=== PATIENT | female | born 1930 | race African-American/Black ===

== ENCOUNTER 2016-02-06 08:11 | Inpatient (IN) | payer MEDICARE, BC ==
[~2016-02-06] VITALS: Ht 175.3 cm; Wt 64.0 kg
[2016-02-06] VITALS (7 sets, daily range): BP systolic 122–198; BP diastolic 61–96; PULSE 77–112; RESP 16–24; TEMP 98.4–99.1; O2SAT 86–100
[~2016-02-06 08:11] MED LIST: ALPR.25 PO; AMLO1TAB99 PO; ASPI81TA11 PO; CARV6.25 PO; CYAN25003 SL; LEVO50TA4 PO; LIPI20TA PO; MULT1TAB84 PO; SEVEL800 PO; VIIB40TA PO
[2016-02-06] MEDS: RESP: ALBUTEROL 2.5 MG/IPRATROPIUM 0.5 MG NEB (SCH) INH ×2 (08:30→09:00)
[2016-02-06] MEDS ORDERED: SODIUM CHLORIDE 0.9% FLUSH 5 ML FLUSH IVF PRN ×2 (08:30→13:00)
[2016-02-06 08:40] LABS: BLOOD GAS BASE EXCESS -2.5 mmol/L (-2-2); BLOOD GAS HCO3 23 mmol/L (22-26); BLOOD GAS METHEMOGLOBIN 1.8 % (0-2); BLOOD GAS O2 HGB SATURATION 94 % (90-100); BLOOD GAS PCO2 44 mmHg (38-42); BLOOD GAS PO2 101 mmHG (61-120); BLOOD GAS TOTAL HGB 11.3 G/DL (12.0-16.0); CRITICAL VALUE NO; DRAW SITE LT RADIAL; LITER FLOW 4 L/M; NUMBER OF ARTERIAL PUNCTURES 1; OXYGEN DEVICE NASAL CANNULA; STAT YES; TEMP CORR TO 98.6; ULNAR PULSE PRESENT
[2016-02-06 08:52] LABS: AUTOMATED NEUTROPHIL # 6.3 TH/MM3 (1.8-7.7); BASOPHIL % 0.5 % (0.0-2.0); EOSINOPHIL % 0.1 % (0.0-4.0); HEMATOCRIT 32.9 % (35.0-46.0); HEMO FLAGS DIFF FINAL; LYMPH % 14.3 % (9.0-44.0); LYMPHOCYTE # 1.1 TH/MM3 (1.0-4.8); MEAN CORPUSCULAR HEMOGLOBIN 31.9 PG (27.0-34.0); MEAN CORPUSCULAR HGB CONC 32.8 % (32.0-36.0); MONO % 5.8 % (0.0-8.0); NEUT % 79.3 % (16.0-70.0); PLATELET COUNT 260 TH/MM3 (150-450); RED BLOOD COUNT 3.39 MIL/MM3 (4.00-5.30); RED CELL DISTRIBUTION WIDTH 14.6 % (11.6-17.2)
[2016-02-06 09:00] LABS: APTT (PATIENT) 25.5 SEC (24.3-30.1); PROTHROMBIN TIME - PATIENT 10.7 SEC (9.8-11.6)
[2016-02-06 09:05] LABS: BICARBONATE 21.4 MEQ/L (21.0-32.0); POTASSIUM 4.8 MEQ/L (3.5-5.1)
--- NOTE | 2016-02-06 09:12 | RADRPT ---
EXAM DATE/TIME: 02/06/2016 08:57 [place] COMPARISON: CHEST SINGLE AP, December 20, 2015, 1:54. CHEST SINGLE AP, January 07, 2016, 12:55. INDICATIONS : Shortness of breath. MEDICAL HISTORY : Hypertension. Gastroesophageal reflux disease. CAD. SURGICAL HISTORY : Tonsillectomy. 3 Stents placed. ENCOUNTER: Initial ACUITY: 1 day PAIN SCORE: 0/10 LOCATION: Bilateral chest FINDINGS: There is interstitial prominence and patchy parenchymal infiltrate in the left mid and lower lung zon es and right lung base. Blunting of the bilateral costophrenic angles identified and may reflect tiny effusions. There is cardiomegaly. Aortic calcification. CONCLUSION: Interstitial and alveolar infiltrates with small effusions. Chano Jimenes MD on February 06, 2016 at 9:10 Board Certified Radiologist. This report was verified electronically.
[2016-02-06] MEDS ORDERED: cefTRIAXone INJ 2,000 MG in SODIUM CHLORIDE 0.9% INJ 100 ML IV STA (09:18)
[2016-02-06] MEDS ORDERED: AZITHROMYCIN INJ 500 MG in SODIUM CHLOR 0.9% 250 ML INJ 250 ML IV STA (09:18)
--- NOTE | 2016-02-06 09:24 | PD ---
HPI Chief Complaint: Respiratory Distress Time Seen by Provider: 08:17 Travel History International Travel<30 days: No Contact w/Intl Traveler<30days: No Traveled to known affect area: No History of Present Illness HPI Patient is a 85-year-old female with history of HTN, ESRD on HD Sunday/Sunday /Sunday, CAD with recent cardiac catheter approximately 4 months ago showing mild three-vessel CAD with EF of 45-50%. Patient presents the emergency department today with complaint of shortness of breath. Patient states that she had dialysis on Sunday but only had a partial run. She is not able to tell me why this was only a partial run. Patient states that yesterday she felt fine but this morning she woke up feeling short of breath, wheezy. She denies any history of underlying lung disease. She does not know how much fluid they took off on Sunday versus how much they typically would take off. Patient denies any increasing lower, edema or change in her weight. Per EMS patient was hypoxic into the mid 80s. Given albuterol 2 and placed on supplemental oxygen with some improvement of her respiratory distress en route. Patient denies any chest pain at this time. PFSH Past Medical History Anemia: Yes Arthritis: Yes Asthma: No Blood Disorders: No Anxiety: Yes Depression: Yes Heart Rhythm Problems: Yes Cancer: No Cardiac Catheterization: Yes (X3) Cardiovascular Problems: Yes (3 STENTS) High Cholesterol: No Chest Pain: Yes Congestive Heart Failure: No COPD: No Coronary Artery Disease: Yes Diabetes: No Endocrine: Yes Gastrointestinal Disorders: Yes (HEART BURN) GERD: Yes Genitourinary: Yes (ESRD - ON DIALYSIS) Hypertension: Yes Immune Disorder: No Implanted Vascular Access Dvce: Yes Musculoskeletal: Yes (RIGHT HIP) Neurologic: No Psychiatric: Yes Reproductive: No Respiratory: Yes Integumentary: Yes (CELLULITIS L ARM) Immunizations Current: Yes Pneumonia: Yes Renal Failure: Yes Sleep Apnea: Yes (HAD CPAP IN PAST) Thyroid Disease: Yes Influenza Vaccination: Yes ?: Not Past Surgical History Abdominal Surgery: Yes Appendectomy: Yes Arteriovenous Shunt: Yes (RUE) Body Medical Devices: 3 CARDIAC STENTS, KIDNEY STENT, HX R CHEST DIALYSIS CATH Coronary Stent: Yes (X3) Eye Surgery: Yes (L CATARACT REMOVED) Genitourinary Surgery: Yes (STONES REMOVED, L KIDNEY STENT) Gynecologic Surgery: Yes Hysterectomy: Yes Joint Replacement: Yes (BILAT TOTAL HIP, BILAT TOTAL KNEE) Oral Surgery: Yes Tonsillectomy: Yes Other Surgery: Yes Social History Alcohol Use: Yes (RARE) Tobacco Use: No Substance Use: No Allergies-Medications (Allergen,Severity, Reaction): Coded Allergies: Dilaudid (Verified Allergy, Severe, ANAPHYLACTIC, 02/06/16) Morphine (Verified Allergy, Severe, ANAPHYLACTIC, 02/06/16) *MDRO Multi-Drug Resistant Organism (Verified Adverse Reaction, Unknown, 01/07/16) MRSA PCR screen POSITIVE - 12/21/15 Reported Meds & Prescriptions Reported Meds & Active Scripts Active Xanax (Alprazolam) 0.25 Mg Tab 0.25 Mg PO Q8H PRN Coreg (Carvedilol) 6.25 Mg Tab 6.25 Mg PO Q12HR Lipitor (Atorvastatin Calcium) 20 Mg Tab 20 Mg PO HS Aspirin EC (Aspirin) 81 Mg Tabdr 325 Mg PO DAILY Reported Viibryd (Vilazodone) 40 Mg Tab 40 Mg PO DAILY Multivitamin Adults (Multiple Vitamins W/ Minerals) 1 Tab 1 Tab PO DAILY Review of Systems Except as stated in HPI: all other systems reviewed are Neg Physical Exam Narrative GENERAL: Pleasant female in no acute distress SKIN: Warm and dry. HEAD: Normocephalic. EYES: No scleral icterus. No injection or drainage. ENT: Mucous membranes pink and moist. NECK supple CARDIOVASCULAR: Tachycardic with heart rate in the 110s, regular rhythm. No murmur appreciated. RESPIRATORY: Mild to moderate respiratory distress with tachypnea, prolonged expiratory phase. Decreased in bilateral bases with slight crackles. Lips. GASTROINTESTINAL: Abdomen soft, non-tender, nondistended. MUSCULOSKELETAL: Right upper extremity with palpable thrill and AV fistula NEUROLOGICAL: Awake and alert. Normal speech. PSYCHIATRIC: Appropriate mood and affect; insight and judgment normal. Data Data Last Documented VS Vital Signs Date Time Temp Pulse Resp B/P Pulse Ox O2 Delivery O2 Flow Rate FiO2 02/06/16 08:23 95 Nasal Cannula 2 02/06/16 08:23 98.4 109 16 198/96 Orders Complete Blood Count With Diff (02/06/16 08:17) Basic Metabolic Panel (Bmp) (02/06/16 08:17) B-Type Natriuretic Peptide (02/06/16 08:17) Act Partial Throm Time (Ptt) (02/06/16 08:17) Prothrombin Time / Inr (Pt) (02/06/16 08:17) Troponin I (02/06/16 08:17) Arterial Blood Gas (Abg) (02/06/16 08:17) Blood Culture (02/06/16 08:17) Iv Access Insert/Monitor (02/06/16 08:17) Electrocardiogram (02/06/16 08:17) Ecg Monitoring (02/06/16 08:17) Oximetry (02/06/16 08:17) Oxygen Administration (02/06/16 08:17) Chest, Single Ap (02/06/16 08:17) Sodium Chloride 0.9% Flush (Ns Flush) (02/06/16 08:30) Albuterol-Ipratropium Neb (Duoneb Neb) (02/06/16 08:30) Lactic Acid Sepsis Protocol (02/06/16 08:17) Electrocardiogram (02/06/16 ) Electrocardiogram (02/06/16 ) Nitroglycerin Sl (Nitrostat Sl) (02/06/16 09:30) Ceftriaxone Inj (Rocephin Inj) (02/06/16 09:18) Azithromycin Inj (Zithromax Inj) (02/06/16 09:18) Admit Order (Ed Use Only) (02/06/16 10:02) Consult Nephrology (02/06/16 ) Labs Laboratory Tests Test 02/06/16 02/06/16 08:34 08:35 White Blood Count 8.0 TH/MM3 Red Blood Count 3.39 MIL/MM3 Hemoglobin 10.8 GM/DL Hematocrit 32.9 % Mean Corpuscular Volume 97.0 FL Mean Corpuscular Hemoglobin 31.9 PG Mean Corpuscular Hemoglobin 32.8 % Concent Red Cell Distribution Width 14.6 % Platelet Count 260 TH/MM3 Mean Platelet Volume 8.2 FL Neutrophils (%) (Auto) 79.3 % Lymphocytes (%) (Auto) 14.3 % Monocytes (%) (Auto) 5.8 % Eosinophils (%) (Auto) 0.1 % Basophils (%) (Auto) 0.5 % Neutrophils # (Auto) 6.3 TH/MM3 Lymphocytes # (Auto) 1.1 TH/MM3 Monocytes # (Auto) 0.5 TH/MM3 Eosinophils # (Auto) 0.0 TH/MM3 Basophils # (Auto) 0.0 TH/MM3 CBC Comment DIFF FINAL Differential Comment Prothrombin Time 10.7 SEC Prothromb Time International 1.0 RATIO Ratio Activated Partial 25.5 SEC Thromboplast Time Sodium Level 131 MEQ/L Potassium Level 4.8 MEQ/L Chloride Level 98 MEQ/L Carbon Dioxide Level 21.4 MEQ/L Anion Gap 12 MEQ/L Blood Urea Nitrogen 54 MG/DL Creatinine 5.54 MG/DL Estimat Glomerular Filtration 9 ML/MIN Rate Random Glucose 163 MG/DL Lactic Acid Level 1.9 mmol/L Calcium Level 9.5 MG/DL Troponin I 0.05 NG/ML B-Type Natriuretic Peptide GREATER THAN 5000 PG/ML Blood Gas Puncture Site LT RADIAL Blood Gas Patient Temperature 98.6 Blood Gas HCO3 23 mmol/L Blood Gas Base Excess -2.5 mmol/L Blood Gas Oxygen Saturation 94 % Arterial Blood pH 7.33 Arterial Blood Partial 44 mmHg Pressure CO2 Arterial Blood Partial 101 mmHG Pressure O2 Arterial Blood Oxygen Content 15.0 Vol % Arterial Blood 2.0 % Carboxyhemoglobin Arterial Blood Methemoglobin 1.8 % Blood Gas Hemoglobin 11.3 G/DL Oxygen Delivery Device NASAL CANNULA Blood Gas Liter Flow 4 L/M MDM Medical Decision Making Medical Screen Exam Complete: Yes Emergency Medical Condition: Yes Medical Record Reviewed: Yes Differential Diagnosis 85-year-old female with history of HTN, ESRD on HD Sunday/Sunday/Sunday, CAD with recent cardiac catheter approximately 4 months ago showing mild three- vessel CAD with EF of 45-50% here with shortness of breath since this morning. Differential includes pulmonary edema, volume overload, CHF exacerbation, ACS, arrhythmia, pneumonia, symptomatic anemia, less likely new onset COPD given lack of history of same. Patient does not have any identifiable PE risk factors. Narrative Course Patient placed on monitor and supplemental oxygen given her hypoxia. Twelve- lead EKG shows sinus tachycardia with evidence of LVH with strain type pattern similar her previous EKG. portal chest x-ray shows evidence of pulmonary edema. Given her cough and cannot rule out an underlying pneumonia and so she was covered empirically with Rocephin and is a throat. ABG, CBC, BMP, BNP, coags, troponin, lactic acid, blood cultures obtained and notable for minimal respiratory acidosis with pH 7.33, PCO2 44. BNP greater than 5000. Baseline renal insufficiency. Patient was treated with nitroglycerin. She does not make urine and therefore her Lasix is not going to be effective. Nephrology was consulted, Dr. Infante for her tube sizer and cutter operator Dr. Salazar, for dialysis given her hypoxia. Diagnosis Primary Impression: Pulmonary edema Qualified Code: J81.0 - Acute pulmonary edema Additional Impressions: Hypoxia Shortness of breath ESRD (end stage renal disease) Admitting Information Admitting Physician Requests: Admit Acacia Moore MD Feb 06, 2016 09:24
[2016-02-06] MEDS: NITROGLYCERIN 0.4 MG SL 25 TABS/BTL SL SCH ×3 (09:30→09:40)
[2016-02-06] MEDS: GELATIN 12 MM/7 MM FOAM TOP PRN (12:59)
[2016-02-06] MEDS ORDERED: GENTAMICIN SULFATE (DIALYSIS USE ONLY) 20 MG/2 ML VIAL OTHER PRN (13:00)
[2016-02-06] MEDS ORDERED: SODIUM CHLOR 0.9% 1000 ML IV PRN ×2 (13:00)
[2016-02-06] MEDS ORDERED: cloNIDine HCL 0.1 MG TAB PO PRN (13:00)
[2016-02-06] MEDS ORDERED: HEPARIN SODIUM - IV 10,000 UNITS/10 ML VIAL OTHER PRN (13:00)
[2016-02-06] MEDS ORDERED: NITROGLYCERIN 0.4 MG SL 25 TABS/BTL SL PRN ×2 (13:00→20:30)
[2016-02-06] MEDS ORDERED: ACETAMINOPHEN 325 MG TAB PO PRN (13:00)
[2016-02-06] MEDS ORDERED: ONDANSETRON HCL 4 MG/2 ML VIAL IV PRN (13:00)
[2016-02-06] MEDS ORDERED: ALBUMIN HUMAN 25% 25 GM/100 ML BAGP IV PRN (13:00)
[2016-02-06] MEDS ORDERED: diphenhydrAMINE HCL 25 MG CAP PO PRN (13:00)
[2016-02-06] MEDS ORDERED: HEPARIN SODIUM - IV 10,000 UNITS/10 ML VIAL IV FLUSH PRN (13:00)
[2016-02-06] MEDS ORDERED: NS 250 ML IV PRN (13:00)
[2016-02-06] MEDS ORDERED: MANNITOL 12.5 GM/50 ML VIAL IV PRN (13:00)
--- NOTE | 2016-02-06 13:14 | EKG ---
Date Performed: 02/06/2016 Time Performed: 08:21:17 PTAGE: 85 years EKG: SINUS TACHYCARDIA WITH OCCASIONAL ECTOPIC PREMATURE COMPLEXES MARKED LEFT AXIS DEVIATION LE FT VENTRICULAR HYPERTROPHY AND ST-T CHANGE ABNORMAL ECG Compared to PREVIOUS TRACING , the patient has developed sinus tachycardia and an increase in precord ial voltage consistent with progressive left ventricular hypertrophy. There has been some variation o f the nonspecific ST-T wave changes. PREVIOUS TRACIN01/07/2016 13.21 DOCTOR: Julia Siddiqui Interpretating Date/Time 02/06/2016 13:12:11
--- NOTE | 2016-02-06 13:14 | EKG ---
Date Performed: 02/06/2016 Time Performed: 08:43:29 PTAGE: 85 years EKG: Sinus rhythm MARKED LEFT AXIS DEVIATION LEFT VENTRICULAR HYPERTROPHY AND ST-T CHANGE ABNORMAL ECG Compared to PREVIOUS TRACING , the sinus tachycardia has resolved as has the ectopy. Otherwise no sig nificant serial change. PREVIOUS TRACIN02/06/2016 08.21 DOCTOR: Julia Siddiqui Interpretating Date/Time 02/06/2016 13:12:46
--- NOTE | 2016-02-06 13:57 | PD.CONS ---
HPI Consult Requested By Reason for Consult End-stage renal disease. Primary Care Physician Ashlyn Mao MD History of Present Illness 85-year-old female with a history of end-stage renal disease, coronary disease moderate, hypertension now presenting with shortness of breath and radiological and clinical signs of congestive heart failure. According to the patient she presented herself to the dialysis unit last Sunday and her dialysis access could not be cannulated and she was advised to go home but this cannot be confirmed presently. Developed increasing shortness of breath overnight. Presented to the emergency room with a blood pressure initially 198/76 and radiological evidence of pulmonary edema. She is also complaining of some lesions in her right axilla. Review of Systems Constitutional: COMPLAINS OF: Fatigue, DENIES: Diaphoretic episodes, Fever, Weight gain, Weight loss, Chills, Dizziness, Change in appetite, Night Sweats Respiratory: COMPLAINS OF: Shortness of breath, DENIES: Apneas, Cough, Snoring , Wheezing, Hemoptysis, Sputum production Cardiovascular: COMPLAINS OF: Dyspnea on Exertion, DENIES: Chest pain, Palpitations, Syncope, PND, Lower Extremity Edema, Orthopnea, Claudication Gastrointestinal: DENIES: Abdominal pain, Black stools, Bloody stools, Constipation, Diarrhea, Nausea, Vomiting, Difficulty Swallowing, Anorexia Musculoskeletal: COMPLAINS OF: Joint pain, DENIES: Muscle aches, Stiffness, Joint Swelling, Back pain, Neck pain Integumentary: DENIES: Breast masses, Breast skin changes Neurologic: DENIES: Abnormal gait, Headache, Localized weakness, Paresthesias, Seizures, Speech Problems, Tremor, Poor Balance Past Family Social History Allergies: Coded Allergies: Dilaudid (Verified Allergy, Severe, ANAPHYLACTIC, 02/06/16) Morphine (Verified Allergy, Severe, ANAPHYLACTIC, 02/06/16) *MDRO Multi-Drug Resistant Organism (Verified Adverse Reaction, Unknown, 01/07/16) MRSA PCR screen POSITIVE - 12/21/15 Past Medical History ESRD on HD M-W- CAD s/p stents. Recent catheterization indicated left ventricular ejection fraction 4550%. Moderate coronary artery disease 3. Medical management advised. GERD HTN Anemia Arthritis Depression Metabolic Bone Disorder Past Surgical History Past Surgical History AVF RUE Cardiac cath renal artery stent Hysterectomy Total knee, right Total knee, left x2 total hip replacement, bilaterally tonsils Reported Medications Reported Meds & Active Scripts Active Xanax (Alprazolam) 0.25 Mg Tab 0.25 Mg PO Q8H PRN Coreg (Carvedilol) 6.25 Mg Tab 6.25 Mg PO Q12HR Lipitor (Atorvastatin Calcium) 20 Mg Tab 20 Mg PO HS Aspirin EC (Aspirin) 81 Mg Tabdr 325 Mg PO DAILY Reported Viibryd (Vilazodone) 40 Mg Tab 40 Mg PO DAILY Multivitamin Adults (Multiple Vitamins W/ Minerals) 1 Tab 1 Tab PO DAILY Active Ordered Medications Inpatient Medications Acetaminophen (Tylenol) 650 mg UNSCH X1 PRN PO WITH DIALYSIS; Start 02/06/16 at 13:00; Stop 02/13/16 at 12:59 Albumin Human (Albumin 25% Inj) 25 gm UNSCH PRN IV WITH DIALYSIS; Start at 13:00 Albuterol/ Ipratropium (Duoneb Neb) 1 ampule Q15M INH Last administered on 09:00; Start 02/06/16 at 08:30; Stop 02/06/16 at 08:46; Status DC Alprazolam (Xanax) 0.25 mg Q8H PRN PO ANXIETY; Start 02/06/16 at 11:15 Aspirin (Ecotrin Ec) 325 mg DAILY PO ; Start 02/07/16 at 09:00 Atorvastatin Calcium (Lipitor) 20 mg HS PO ; Start 02/06/16 at 21:00 Azithromycin/ Sodium Chloride (Zithromax Inj/ NS 250 ml Inj) 250 ml @ 250 mls/ hr ONCE STAT IV Last administered on 02/06/16 11:55; Start 02/06/16 at 09:18; Stop 02/06/16 at 10:17; Status DC Carvedilol (Coreg) 6.25 mg Q12HR PO ; Start 02/06/16 at 21:00 Ceftriaxone Sodium 2000 mg/ Sodium Chloride 100 ml @ 200 mls/hr ONCE STAT IV Last administered on 02/06/16 10:45; Start 02/06/16 at 09:18; Stop 02/06/16 at 09: 59; Status DC Clonidine (Catapres) 0.1 mg UNSCH PRN PO WITH DIALYSIS; Start 02/06/16 at 13:00 Diphenhydramine HCl (Benadryl) 25 mg UNSCH PRN PO WITH DIALYSIS; Start 02/06/16 at 13:00 Gelatin (Gelfoam 12 Mm/7 Mm Top) 1 foam UNSCH PRN TOP WITH DIALYSIS Last administered on 02/06/16 12:59; Start 02/06/16 at 13:00 Gentamicin Sulfate (Gentamicin (Dialysis) Inj) 10 mg UNSCH PRN OTHER WITH DIALYSIS; Start 02/06/16 at 13:00 Heparin Sodium (Porcine) (Heparin Inj) Dwell Heparin to f... UNSCH PRN OTHER WITH DIALYSIS Last administered on 02/06/16 12:59; Start 02/06/16 at 13:00 Heparin Sodium (Porcine) 8000 units 8,000 units UNSCH PRN IV FLUSH WITH DIALYSIS; Start 02/06/16 at 13:00 IV Flush (NS Flush) 5 ml UNSCH PRN IVF WITH DIALYSIS; Start 02/06/16 at 13:00 Mannitol (Mannitol Inj) 12.5 gm UNSCH PRN IV WITH DIALYSIS; Start 02/06/16 at 13 :00 Nitroglycerin (Nitrostat Sl) 0.4 mg UNSCH PRN SL WITH DIALYSIS; Start 02/06/16 at 13:00 Nitroglycerin 0.4 mg 0.4 mg Q5M SL ; Start 02/06/16 at 09:30; Stop 02/06/16 at 09: 41; Status DC Ondansetron HCl (Zofran Inj) 4 mg UNSCH PRN IV NAUSEA OR VOMITING; Start at 13:00 Patient Own Medication 40 ea 40 ea DAILY PO ; Start 02/07/16 at 09:00; Status Future Hold Sodium Chloride (NS 1000 ml Inj) 1,000 ml @ 0 mls/hr TITRATE PRN IV WITH DIALYSIS Last administered on 02/06/16 12:58; Start 02/06/16 at 13:00 Sodium Chloride (NS 250 ml Inj) 200 ml @ 0 mls/hr UNSCH PRN IV WITH DIALYSIS; Start 02/06/16 at 13:00 Family History Noncontributory to current complaint. Social History Noncontributory to current complaint. Denies alcohol or tobacco use or abuse. Physical Exam Vital Signs Vital Signs Date Time Temp Pulse Resp B/P Pulse Ox O2 Delivery O2 Flow Rate FiO2 02/06/16 10:53 84 18 122/80 100 Nasal Cannula 4 02/06/16 08:23 95 Nasal Cannula 2 02/06/16 08:23 98.4 109 16 198/96 94 Nasal Cannula 4 02/06/16 08:19 98.4 112 24 198/96 86 Physical Exam GENERAL: Elderly female who is seen during hemodialysis. Dialysis access working well. Patient presently not obviously dyspneic at rest. SKIN: Warm and dry. 2 bullous lesions which appear to be purulent located in her right axillary region. Not draining presently. HEAD: Normocephalic. EYES: No scleral icterus. No injection or drainage. NECK: Supple, trachea midline. No JVD or lymphadenopathy. CARDIOVASCULAR: Regular rate and rhythm without murmurs, gallops, or rubs. RESPIRATORY: Breath sounds equal bilaterally. No accessory muscle use. Few basal rales. GASTROINTESTINAL: Abdomen soft, non-tender, nondistended. MUSCULOSKELETAL: No cyanosis, or edema. Dialysis access shows no evidence of erythema or edema or other signs of infection. BACK: Nontender without obvious deformity. No CVA tenderness. Laboratory Laboratory Tests Test 02/06/16 02/06/16 08:34 08:35 White Blood Count 8.0 Red Blood Count 3.39 Hemoglobin 10.8 Hematocrit 32.9 Mean Corpuscular Volume 97.0 Mean Corpuscular Hemoglobin 31.9 Mean Corpuscular Hemoglobin 32.8 Concent Red Cell Distribution Width 14.6 Platelet Count 260 Mean Platelet Volume 8.2 Neutrophils (%) (Auto) 79.3 Lymphocytes (%) (Auto) 14.3 Monocytes (%) (Auto) 5.8 Eosinophils (%) (Auto) 0.1 Basophils (%) (Auto) 0.5 Neutrophils # (Auto) 6.3 Lymphocytes # (Auto) 1.1 Monocytes # (Auto) 0.5 Eosinophils # (Auto) 0.0 Basophils # (Auto) 0.0 CBC Comment DIFF FINAL Differential Comment Prothrombin Time 10.7 Prothromb Time International 1.0 Ratio Activated Partial 25.5 Thromboplast Time Sodium Level 131 Potassium Level 4.8 Chloride Level 98 Carbon Dioxide Level 21.4 Anion Gap 12 Blood Urea Nitrogen 54 Creatinine 5.54 Estimat Glomerular Filtration 9 Rate Random Glucose 163 Lactic Acid Level 1.9 Calcium Level 9.5 Troponin I 0.05 B-Type Natriuretic Peptide GREATER THAN 5000 Blood Gas Puncture Site LT RADIAL Blood Gas Patient Temperature 98.6 Blood Gas HCO3 23 Blood Gas Base Excess -2.5 Blood Gas Oxygen Saturation 94 Arterial Blood pH 7.33 Arterial Blood Partial 44 Pressure CO2 Arterial Blood Partial 101 Pressure O2 Arterial Blood Oxygen Content 15.0 Arterial Blood 2.0 Carboxyhemoglobin Arterial Blood Methemoglobin 1.8 Blood Gas Hemoglobin 11.3 Oxygen Delivery Device NASAL CANNULA Blood Gas Liter Flow 4 Date/Time Procedure Status Source Growth 02/06/16 09:13 Aerobic Blood Culture Received Blood Peripheral Pending 02/06/16 09:13 Anaerobic Blood Culture Received Blood Peripheral Pending Result Diagram: 02/06/1634 02/06/16833 Imaging Last 48 hours Impressions Chest X-Ray 02/06/16816 Signed Impressions: Service Date/Time: Saturday, February 06, 2016 08:57 - CONCLUSION: Interstitial and alveolar infiltrates with small effusions. Chano Jimenes MD Assessment and Plan Problem List: (1) ESRD (end stage renal disease) Plan: Patient seen during dialysis. Access appears to be working well with no evidence of access infection. Goal will be 3-3.5 L fluid removal today with reevaluation tomorrow and subsequent resumption of Sunday schedule. Patient's care will be resumed by Dr. Miramontes tomorrow her outpatient tank assembler. Medication should be adjusted for the patient's end-stage renal disease when indicated. Avoid gadolinium. (2) Pulmonary edema Plan: Secondary apparently to miss treatment Sunday. Circumstances of patient missing or having incomplete treatment uncertain. Deferred to primary tank assembler to follow-up. (3) Boil, axilla Plan: Lesions within the axilla will need to be drained. We'll defer to primary care physician regarding consultation to appropriate web development consultant most likely general surgery and to determine if any further evaluation is indicated.. (4) Hypertension Plan: Improving. Elevation at presentation most likely related to acute pulmonary edema. (5) CAD (coronary artery disease) Plan: Said to be moderate with medical management advised post last cardiac catheterization. (6) Anemia Plan: Epogen for anemia renal disease as indicated. Problem Qualifiers (1) Pulmonary edema: Qualified Code: J81.0 - Acute pulmonary edema (2) Hypertension: Qualified Code: I10 - Essential hypertension (3) Anemia: Juanito Infante MD Feb 06, 2016 13:57
--- NOTE | 2016-02-06 14:40 | PD.CARD.PN ---
Subjective Subjective Remarks Pt was seen and she requested Dr Valentin who took care of her prior. Objective Vital Signs / I&O Vital Signs Date Time Temp Pulse Resp B/P Pulse Ox O2 Delivery O2 Flow Rate FiO2 02/06/16 10:53 84 18 122/80 100 Nasal Cannula 4 02/06/16 08:23 95 Nasal Cannula 2 02/06/16 08:23 98.4 109 16 198/96 94 Nasal Cannula 4 02/06/16 08:19 98.4 112 24 198/96 86 Laboratory Laboratory Tests Test 02/06/16 02/06/16 08:34 08:35 White Blood Count 8.0 TH/MM3 Red Blood Count 3.39 MIL/MM3 Hemoglobin 10.8 GM/DL Hematocrit 32.9 % Mean Corpuscular Volume 97.0 FL Mean Corpuscular Hemoglobin 31.9 PG Mean Corpuscular Hemoglobin 32.8 % Concent Red Cell Distribution Width 14.6 % Platelet Count 260 TH/MM3 Mean Platelet Volume 8.2 FL Neutrophils (%) (Auto) 79.3 % Lymphocytes (%) (Auto) 14.3 % Monocytes (%) (Auto) 5.8 % Eosinophils (%) (Auto) 0.1 % Basophils (%) (Auto) 0.5 % Neutrophils # (Auto) 6.3 TH/MM3 Lymphocytes # (Auto) 1.1 TH/MM3 Monocytes # (Auto) 0.5 TH/MM3 Eosinophils # (Auto) 0.0 TH/MM3 Basophils # (Auto) 0.0 TH/MM3 CBC Comment DIFF FINAL Differential Comment Prothrombin Time 10.7 SEC Prothromb Time International 1.0 RATIO Ratio Activated Partial 25.5 SEC Thromboplast Time Sodium Level 131 MEQ/L Potassium Level 4.8 MEQ/L Chloride Level 98 MEQ/L Carbon Dioxide Level 21.4 MEQ/L Anion Gap 12 MEQ/L Blood Urea Nitrogen 54 MG/DL Creatinine 5.54 MG/DL Estimat Glomerular Filtration 9 ML/MIN Rate Random Glucose 163 MG/DL Lactic Acid Level 1.9 mmol/L Calcium Level 9.5 MG/DL Troponin I 0.05 NG/ML B-Type Natriuretic Peptide GREATER THAN 5000 PG/ML Blood Gas Puncture Site LT RADIAL Blood Gas Patient Temperature 98.6 Blood Gas HCO3 23 mmol/L Blood Gas Base Excess -2.5 mmol/L Blood Gas Oxygen Saturation 94 % Arterial Blood pH 7.33 Arterial Blood Partial 44 mmHg Pressure CO2 Arterial Blood Partial 101 mmHG Pressure O2 Arterial Blood Oxygen Content 15.0 Vol % Arterial Blood 2.0 % Carboxyhemoglobin Arterial Blood Methemoglobin 1.8 % Blood Gas Hemoglobin 11.3 G/DL Oxygen Delivery Device NASAL CANNULA Blood Gas Liter Flow 4 L/M Nita Cintron MD Feb 06, 2016 14:40
[2016-02-06] MEDS ORDERED: VANCOMYCIN INJ 1,000 MG in SODIUM CHLOR 0.9% 250 ML INJ 250 ML IV ONE (19:00)
[2016-02-06] MEDS ORDERED: TRAV0.00 EACH EYE (19:01)
[2016-02-06] MEDS: CARVEDILOL 6.25 MG TAB PO SCH (19:21)
[2016-02-06] MEDS: ATORVASTATIN 20 MG TAB PO SCH (19:21)
[2016-02-06] MEDS: ACETAMINOPHEN/HYDROcodone 325 MG/5 MG TAB PO PRN (19:21)
--- NOTE | 2016-02-06 19:56 | MH ---
cc: DARWIN LAM MD DATE OF ADMISSION 02/06/2016 CHIEF COMPLAINT The patient came here complaining of sudden onset of shortness of breath. HISTORY OF PRESENT ILLNESS This is an 84-year-old -Citizen Of The [place] female with prior history of hypertension, coronary artery disease, cardiomyopathy, moderate aortic stenosis, end-stage renal disease who is on hemodialysis. The patient came to the ER today complaining of sudden onset of shortness of breath that started this morning which was associated with heaviness in the chest that lasted about 20 minutes. The discomfort was moderate in intensity. She described this as heaviness, a pressing pain that is nonradiating. She denies vomiting but was feeling nauseous. She denies fever or chills. She denies cough or sputum production. The patient is on dialysis and gets dialyzed Sunday, Sunday and Sunday. Last Sunday she had a difficult time completing her dialysis due to some problem with the AV fistula and apparently it was not completed. She claims to be compliant with her medications otherwise. Upon arrival she was noted to be hypoxemic. She had bibasilar crackles. Chest x-ray shows pulmonary edema and fluid overload. EKG was negative for acute finding. She was given a dose of antibiotics to cover for pneumonia and recommendation was given by the ER physician for the patient to be admitted to hospital. Nephrology service was consulted for urgent dialysis. Dr. Infante has since seen the patient and the patient has already received dialysis and had about 3.0-3.5 liters of fluid was removed reportedly. She is already feeling much better. The patient also reports having a boil in both shoulders especially the right one that started on . They are painful little boils with scanty drainage. She denies fever but has some chills. She reports that she never had this kind of boil before. This is the first time she is having them now. PAST MEDICAL HISTORY The past medical history of this patient is significant for: 1. Hypertension. 2. Coronary artery disease. 3. Cardiomyopathy. 4. Mild to moderate aortic stenosis. 5. History of congestive heart failure. 6. End-stage renal disease on hemodialysis. 7. History of sleep apnea. 8. Hypothyroidism. PAST SURGICAL HISTORY Significant for: 1. Cardiac catheterization with stenting in past. 2. The last catheterization was done last month which shows mild to moderate nonocclusive disease. No intervention was performed. 3. Bilateral hip replacement. 4. Bilateral knee replacement. 5. Tonsillectomy. 6. Appendectomy. 7. Hysterectomy. 8. Right upper extremity AV fistula. 9. Cataract surgery. SOCIAL HISTORY The patient denies smoking, drinking or drug abuse. ALLERGIES SHE IS ALLERGIC TO DILAUDID AND MORPHINE THAT MAKE HER NAUSEOUS AND CONFUSED. FAMILY HISTORY Mother at age of 94 due to old age. Dad from leukemia at the age of 56. REVIEW OF SYSTEMS The patient denies headache, loss of vision, double vision. Denies change in hearing. Denies sore throat, dysphagia or odynophagia. She has occasional cough without any sputum adduction. She has a decent appetite. She is able to ambulate with her walker. She denies recent injury or trauma. She makes a very small amount of urine. She denies changes in bowel pattern. Denies melena or bright red blood per rectum. Denies vaginal discharges. Otherwise review of symptoms is negative for 12 systems except what is mentioned above. PHYSICAL EXAMINATION GENERAL: Elderly female, lying in bed. She is awake and alert. Follows simple commands. No left right confusion. VITAL SIGNS: Upon arrival blood pressure 198/96, pulse of 112, respiratory rate 24, temperature 98.4. O2 saturation 86%. Blood pressure is now improved and O2 saturation also better. HEAD AND NECK: Normocephalic, atraumatic. Eye examination extraocular muscles are intact. Pupils are round and reactive. No icterus. The patient has pallor. Ear, nose, and throat, no throat congestion. No oral ulcers. No thrush. Ears clear. Neck is supple. No JVD. No lymph node. No bruits. CARDIOVASCULAR: S1-S2 audible. Occasional systolic ejection murmur best heard at the right second and third costal space. No gallop or rub. LUNGS: Good bilateral air entry, +ve occasional basal crackles. No rhonchi. ABDOMEN: Soft, protuberant. Nontender. Positive bowel sounds. No hepatosplenomegaly. EXTREMITIES: No edema, cyanosis or clubbing. Feet are warm to touch. Axillary area she has two boils in her right axilla which are tender and one of them is draining a scant amount of purulent discharge. They are slightly warm to touch. She had a smaller boil in the left axilla which is not draining, which is also tender. NEUROLOGIC: She is awake and alert. She is oriented to self and place. Slightly forgetful. Follows simple commands. No facial asymmetry. Moving all four extremities. LABORATORY DATA White count 8.0, hemoglobin 10.8, hematocrit 32.9, platelet count of 260, MCV 97.0. Sodium 131, potassium 4.8, chloride 98, bicarb 31.4, BUN of 54, creatinine 5.54, glucose 160, calcium is 9.5. Troponin I 0.05. BNP was greater than 5000. PT 10.7, INR 1.0, PTT 25.5. Initial ABG was done and showed pH 7.33, pCO2 44, pO2 101, bicarbonate was 23, O2 saturation 94%, this is on 4 liters nasal cannula. IMAGING Chest x-ray was taken. This showed evidence of interstitial alveolar infiltrate with small effusion. 12-lead EKG shows sinus tach with occasional ectopic PACs. Left axis deviation, left ventricular hypertrophy, nonspecific ST-T changes. ASSESSMENT 1. Acute pulmonary edema, likely fluid overload due to end stage renal disease, rule out underlying ischemia, rule out myocardial infarction, rule out arrhythmia. 2. Hypertension. 3. Coronary artery disease. 4. History of cardiomyopathy. 5. Mild to moderate aortic stenosis. 6. End-stage renal disease on hemodialysis. 7. Small abscess bilateral axilla right more than left. 8. History of sleep apnea. 9. History of gastroesophageal reflux disease. PLAN 1. The patient admitted to hospital. She is already urgently dialyzed by nephrology service. We will put her on fluid restriction. We will control blood pressure. We will continue SYED inhibitor and beta-yonatna. Consult her inspector returned materials Dr. Valentin to see if the patient needs to have any additional cardiac evaluation or intervention. Continue cardiac medications. 2. We will give her a dose of vancomycin for her abscesses in the axillary area. If they do not spontaneously drain in the next 24 hours we will consider general surgery consultation for I&D. 3. We will give her analgesics for pain control. We will give her Pepcid for GI protection. 4. Resume home medications. 5. I have discussed the findings with the patient and I have answered all of her questions. 6. We will consult physical therapy for ambulation and gait training. 7. The patient meets inpatient criteria due to multiplicity of her health problems, fluid overload, pulmonary edema and abscess that can turn into sepsis. She probably will require to stay in the hospital for two or three days and possible discharge home with home health care when she is stable. MD JOEL Han/KK /6:42 PM /7:14 PM SY
[2016-02-06] MEDS ORDERED: ASPIRIN 325 MG TAB PO ONE (21:00)
--- NOTE | 2016-02-06 21:48 | MB ---
cc: JM LOVING MD DATE OF CONSULTATION 02/06/2016 REASON FOR CONSULTATION Pulmonary edema. HISTORY OF PRESENT ILLNESS Miss Meehan is an 85-year-old patient of Dr. Valentin. I am seeing her as he is apparently out of town. The patient has a history of cardiomyopathy with EF of 35-45%, moderate aortic stenosis and moderate CAD by catheterization in December of 2015. The patient reports that she had been doing quite well. She was unable to have dialysis on Sunday as they were unable to obtain access. Since then she had progressive shortness of breath and sought attention in the emergency room. She has since had dialysis and reports her breathing is nearly back to baseline. She does also report that she had an episode of chest discomfort after dialysis as she pointed to her epigastric region. She is currently pain free. PAST MEDICAL HISTORY Significant for: 1. Hypertension. 2. Hyperlipidemia. 3. And end-stage renal disease on hemodialysis. 4. Non-ST elevation myocardial infarction with moderate disease and no overt culprit. 5. Moderate aortic regurgitation. 6. Cardiomyopathy with recent ejection fraction of 35% by echocardiogram and 45% by catheterization. Cardiac catheterization did also reveal widely patent stents at that time. MEDICATIONS Outpatient medications per the record include: 1. Aspirin. 2. Atorvastatin 3 mg q.h.s. 3. Coreg 6.25 milligrams b.i.d. 4. Alprazolam as needed anxiety. 5. Viibryd 40 milligrams daily. SOCIAL HISTORY The patient does not drink or smoke. ALLERGIES DILAUDID, MORPHINE. REVIEW OF SYSTEMS The patient does indicate that she has tenderness in her right axilla. Other than this and what is mentioned in history of present illness, all 12 systems are negative. PHYSICAL EXAMINATION VITAL SIGNS: Current vital signs are 98.6, 82, 20, 161/72. GENERAL: She is a well appearing female who is in no apparent distress. NECK: Free from JVD. LUNGS: Clear to auscultation bilaterally. CARDIOVASCULAR: On examination she has a harsh systolic murmur. No rubs or gallops are appreciated. ABDOMEN: Soft. EXTREMITIES: Are free from edema. LABORATORY FINDINGS Significant for a BNP greater than 5000 with a troponin of 0.05. IMPRESSION Pulmonary edema - the patient apparently had missed her dialysis on Sunday and has had progressive symptoms since that time. Her symptoms have subsequently been relieved by hemodialysis. There is no overt cardiac contribution at this point. CAD - the patient does have a history of prior cardiac stents and residual moderate disease that is being medically managed. I would continue her on her outpatient regimen for this. Aortic stenosis - this is mild to moderate and this can be followed clinically. I will be available on an p.r.n. basis. The patient can follow up with Dr. Valentin as an outpatient. Jm Loving M.D. ALFIE/KK /5:37 PM /9:33 PM
[2016-02-07] VITALS (7 sets, daily range): BP systolic 108–152; BP diastolic 53–74; PULSE 68–85; RESP 16–22; TEMP 96.4–97.8; O2SAT 92–100
[2016-02-07] MEDS ORDERED: VILAZODONE 40 MG PO SCH (09:00)
[2016-02-07] MEDS: ACETAMINOPHEN/HYDROcodone 325 MG/5 MG TAB PO PRN (09:16)
[2016-02-07] MEDS: GELATIN 12 MM/7 MM FOAM TOP PRN (10:34)
--- NOTE | 2016-02-07 11:15 | HHI.NPPN ---
Subjective Complaints: Shortness of Breath Renal Failure: Chronic, End Stage Renal Disease Interval History Had dialysis yesterday. She has bilateral axiliary nodules, possibly infectious , causing discomfort. (Lelo Chong) Review of Systems Skin Skin Remarks bilateral axillary lesions (Lelo Chong) Objective Data Data 02/06/16 02/07/16 19:00 07:00 Intake Total 480 ml Output Total 3500 ml 0 ml Balance -3500 ml 480 ml Intake Oral 480 ml Output Urine Total 0 ml Hemodialysis 3500 ml # Voids 0 # Bowel Movements 0 Vital Signs Date Time Temp Pulse Resp B/P Pulse Ox O2 Delivery O2 Flow Rate FiO2 02/07/16 08:50 98 Nasal Cannula 2.00 02/07/16 08:00 97.4 85 20 152/74 100 02/07/16 04:00 96.4 71 22 125/61 100 02/07/16 00:00 97.8 78 22 111/53 98 02/06/16 22:28 97 Nasal Cannula 2.00 02/06/16 21:00 22 02/06/16 20:25 77 02/06/16 20:21 22 02/06/16 20:00 99.1 84 24 127/61 97 02/06/16 19:30 Nasal Cannula 2.00 02/06/16 16:07 Nasal Cannula 2.00 02/06/16 16:00 98.6 82 20 161/72 95 (Lelo Chong) -: 02/06/16 0834 02/06/16 0834 Imaging Last 72 hours Impressions Chest X-Ray 02/06/16 0817 Signed Impressions: Service Date/Time: Saturday, February 06, 2016 08:57 - CONCLUSION: Interstitial and alveolar infiltrates with small effusions. Chano Jimenes MD (Lelo Chong) Physical Exam General Appearance: Well Developed, No Acute Distress (Lelo Chong) Eyes Eye Exam: Pupils Equal (Lelo Chong) Neck Neck Exam: Neck Supple (Lelo Chong) Cardiology CV Exam: Regular, Normal Sinus Rhythm, Murmur CV Remarks murmur radiates to retrosternal area (Lelo Chong) Gastrointestinal/Abdomen GI Exam: Soft, Non-Tender (Lelo Chong) Genitourinary Exam: Clear Urine (Lelo Chong) Musculoskeletal MS Exam: Joints Intact, Good Strength (Lelo Chong) Integumentary Skin Exam: Clear, Warm (Lelo Chong) Extremeties Extremities Exam: No Edema, Pedal Pulses Palpable (Lelo Chong) Neurologic Neuro Exam: Alert, Awake, Oriented, Speech Clear, Moving All Extremities ( Lelo Chong) Psychiatric Psych Exam: Appropriate Responses (Lelo Chong) Assessment/Plan Discussed Condition With: Patient Assessment Summary: Anemia of CKD Problem List: (1) ESRD (end stage renal disease) Plan: Dialyzed yesterday, 3.5 liter UF, as she missed Sunday's treatment will dialyze today and return to schedule no electrolyte concerns renal panel in am Medication should be adjusted for the patient's end-stage renal disease when indicated. Avoid gadolinium. high protein diet (2) Pulmonary edema Plan: Improved with dialysis yesterday, she had missed fridays treatment Pulmonary following on oxygen (3) Boil, axilla Plan: warm compresses to area tylenol prn pain control may require surgical consult for I&D (4) Hypertension Plan: Blood pressure acceptable continue current medications (5) CAD (coronary artery disease) Plan: medical management (6) Anemia Plan: Hb stable Epogen with dialysis (Lelo Chong) Plan patient was seen and examined. Dialysis today. Patient also has developed axillary purulent appearing nodules: Hidranitis suppurativa? Suggest surgery consult for I & D. (Roland Miramontes MD) Problem Qualifiers (1) Pulmonary edema: Qualified Code: J81.0 - Acute pulmonary edema (2) Hypertension: Qualified Code: I10 - Essential hypertension (3) Anemia: Lelo Chong Feb 07, 2016 11:15 Roland Miramontes MD Feb 07, 2016 14:26
--- NOTE | 2016-02-07 12:51 | HHI.PR ---
Subjective History of Present Illness Complains of pain in her axilla especially the right one Dose of [place] was just increased Pain meds are helping some No nausea or vomiting Appetite is okay No more chest pain Breathing is okay Was dialyzed again today Offers no other complaints Vitals/Results Intake & Output 02/06/16 02/06/16 02/07/16 15:00 23:00 07:00 Intake Total 240 ml 240 ml Output Total 3500 ml 0 ml Balance -3500 ml 240 ml 240 ml Intake Oral 240 ml 240 ml Output Urine Total 0 ml Hemodialysis 3500 ml # Voids 0 # Bowel Movements 0 0 Vital Signs Vital Signs Date Time Temp Pulse Resp B/P Pulse Ox O2 Delivery O2 Flow Rate FiO2 02/07/16 08:50 98 Nasal Cannula 2.00 02/07/16 08:00 97.4 85 20 152/74 100 02/07/16 04:00 96.4 71 22 125/61 100 02/07/16 00:00 97.8 78 22 111/53 98 02/06/16 22:28 97 Nasal Cannula 2.00 02/06/16 21:00 22 02/06/16 20:25 77 02/06/16 20:21 22 02/06/16 20:00 99.1 84 24 127/61 97 02/06/16 19:30 Nasal Cannula 2.00 02/06/16 16:07 Nasal Cannula 2.00 02/06/16 16:00 98.6 82 20 161/72 95 CBC/BMP: 02/06/16 0834 02/06/16 0834 Lab Results Laboratory Tests Test 02/06/16 02/06/16 18:04 23:44 Troponin I 0.16 NG/ML 0.14 NG/ML Physical Exam General General Appearance: Well Developed, No Acute Distress, Anxious Eyes Eye Exam: Pupils Equal, Sclera White, Extraocular Movement Intact Ears & Nose Ears & Nose Exam: Nasal Mucosa [place] Throat Throat Exam: Oral Mucosa [place] & Moist Neck Neck Exam: Neck Supple, Trachea Midline Pulmonary Resp Exam: Clear Bilaterally, Breath Sounds Equal Cardiology CV Exam: Regular, Normal Sinus Rhythm, Murmur Gastrointestinal/Abdomen GI Exam: Soft, Non-Tender Genitourinary Exam: Clear Urine Musculoskeletal MS Exam: Joints Intact, Good Strength Integumentary Skin Exam: Clear, Warm Skin Remarks 2 small abscesses in the right axilla, tender to touch and warm smaller abscess in the left axilla Extremeties Extremities Exam: No Edema, Pedal Pulses Palpable Neurologic Neuro Exam: Alert, Awake, Oriented, Speech Clear, Moving All Extremities Psychiatric Psych Exam: Appropriate Responses Assessment/Plan Assessment/Plan ASSESSMENT 1. Acute pulmonary edema, likely fluid overload due to end stage renal disease, rule out underlying ischemia, rule out myocardial infarction, rule out arrhythmia. 2. Hypertension. 3. Coronary artery disease. 4. History of cardiomyopathy. 5. Mild to moderate aortic stenosis. 6. End-stage renal disease on hemodialysis. 7. Small abscess bilateral axilla right more than left. 8. History of sleep apnea. 9. History of gastroesophageal reflux disease. 10. Status post chest pain Plan Status post dialysis yesterday and today removal of fluid Clinically better Oxygen aspirin Continue nitrates Continue beta yonatan Continue statin Cardiology input appreciated Status post 1 dose of vancomycin, this should last few days in the body Obtain general surgery consultation for possible I&D of her abscesses Continue analgesics, patient is allergic to morphine and Dilaudid Will give 1 dose of Toradol Continue Pepcid PT evaluation SS for discharge planning Discussed patient and RN Dr. Lara will follow in Brayan Montes MD Feb 07, 2016 12:51
[2016-02-07] MEDS: ASPIRIN EC 325 MG TABEC PO SCH (13:50)
[2016-02-07] MEDS: CARVEDILOL 6.25 MG TAB PO SCH ×2 (13:50→21:14)
--- NOTE | 2016-02-07 14:22 | PD.CARD.PN ---
Subjective Subjective Remarks Pt crying in pain from her arm Objective Medications Current Medications Medications (Trade) Dose Ordered Sig/Thierry Route Start Time Stop Time Status Last Admin (NS Flush) 2 ml UNSCH PRN IVF 02/06/16 08:30 (Xanax) 0.25 mg Q8H PRN PO 02/06/16 11:15 (Ecotrin Ec) 325 mg DAILY PO 02/07/16 09:00 02/07/16 13:50 (Lipitor) 20 mg HS PO 02/06/16 21:00 02/06/16 19:21 (Coreg) 6.25 mg Q12HR PO 02/06/16 21:00 02/07/16 13:50 Patient Own Medication 40 ea 40 ea DAILY PO 02/07/16 09:00 Hold (NS 1000 ml Inj) 1,000 ml @ 0 mls/hr TITRATE PRN IV 02/06/16 13:00 02/06/16 12:58 Heparin Sodium (Porcine) 8000 units 8,000 units UNSCH PRN IV FLUSH 02/06/16 13:00 Sodium Chloride 1,000 ml @ 200 mls/hr Q5H PRN IV 02/06/16 13:00 (NS 250 ml Inj) 200 ml @ 0 mls/hr UNSCH PRN IV 02/06/16 13:00 (Mannitol Inj) 12.5 gm UNSCH PRN IV 02/06/16 13:00 (Albumin 25% Inj) 25 gm UNSCH PRN IV 02/06/16 13:00 (NS Flush) 5 ml UNSCH PRN IVF 02/06/16 13:00 (Heparin Inj) Dwell Heparin to f... UNSCH PRN OTHER 02/06/16 13:00 02/06/16 12:59 (Gentamicin (Dialysis) Inj) 10 mg UNSCH PRN OTHER 02/06/16 13:00 (Gelfoam 12 Mm/7 Mm Top) 1 foam UNSCH PRN TOP 02/06/16 13:00 02/07/16 10:34 (Zofran Inj) 4 mg UNSCH PRN IV 02/06/16 13:00 (Benadryl) 25 mg UNSCH PRN PO 02/06/16 13:00 (Nitrostat Sl) 0.4 mg UNSCH PRN SL 02/06/16 13:00 (Catapres) 0.1 mg UNSCH PRN PO 02/06/16 13:00 ([place] 5-325 Mg) 1 tab Q6H PRN PO 02/06/16 18:45 02/07/16 09:16 (Nitrostat Sl) 0.4 mg UNSCH PRN SL 02/06/16 20:30 02/06/16 20:55 Vital Signs / I&O Vital Signs Date Time Temp Pulse Resp B/P Pulse Ox O2 Delivery O2 Flow Rate FiO2 02/07/16 08:50 98 Nasal Cannula 2.00 02/07/16 08:00 97.4 85 20 152/74 100 02/07/16 04:00 96.4 71 22 125/61 100 02/07/16 00:00 97.8 78 22 111/53 98 02/06/16 22:28 97 Nasal Cannula 2.00 02/06/16 21:00 22 02/06/16 20:25 77 02/06/16 20:21 22 02/06/16 20:00 99.1 84 24 127/61 97 02/06/16 19:30 Nasal Cannula 2.00 02/06/16 16:07 Nasal Cannula 2.00 02/06/16 16:00 98.6 82 20 161/72 95 I/O 02/06/16 02/06/16 02/06/16 02/07/16 02/07/16 02/07/16 07:00 15:00 23:00 07:00 15:00 23:00 Intake Total 240 ml 240 ml Output Total 3500 ml 0 ml 2000 ml Balance -3500 ml 240 ml 240 ml -2000 ml Intake Oral 240 ml 240 ml Output Urine Total 0 ml Hemodialysis 3500 ml 2000 ml # Voids 0 # Bowel Movements 0 0 Physical Exam GENERAL: Well developed, well nourished. No acute distress. HEENT: Jugular venous pressure is normal. CHEST: Lungs clear to auscultation bilaterally. Unlabored respiratory effort. CARDIAC: Regular rate and rhythm without S3, S4, or murmur. ABDOMEN: Soft, nontender, no hepatosplenomegaly. Bowel sounds present. EXTREMITIES: No clubbing, cyanosis, or edema. Laboratory Laboratory Tests Test 02/06/16 02/06/16 18:04 23:44 Troponin I 0.16 NG/ML 0.14 NG/ML Imaging Last 72 hours Impressions Chest X-Ray 02/06/16 0817 Signed Impressions: Service Date/Time: Saturday, February 06, 2016 08:57 - CONCLUSION: Interstitial and alveolar infiltrates with small effusions. Chano Jimenes MD Assessment and Plan Assessment and Plan CP- no further episodes since yesterday -continue medical management arm pain- add pain meds a RN unable to get attending Pulm edema- resolved with HD HTN- fair ESRD- per nephrology Nita Cintron MD Feb 07, 2016 14:22
[2016-02-07] MEDS: ACETAMINOPHEN/HYDROcodone 325 MG/10 MG TAB PO PRN ×2 (14:30→19:39)
[2016-02-07] MEDS ORDERED: HYDROmorphone HCL PF 1 MG/ML VIAL IV PUSH ONE (15:45)
[2016-02-07] MEDS ORDERED: KETOROLAC TROMETHAMINE 30 MG/ML (IVP) VIAL IV PUSH ONE (16:00)
[2016-02-07] MEDS: ATORVASTATIN 20 MG TAB PO SCH (21:14)
[2016-02-07] MEDS: ALPRAZolam 0.25 MG TAB PO PRN (21:21)
[2016-02-08] VITALS (9 sets, daily range): BP systolic 108–146; BP diastolic 56–82; PULSE 63–91; RESP 16–20; TEMP 96.8–98.6; O2SAT 94–100
--- NOTE | 2016-02-08 07:28 | PD.CARD.PN ---
Subjective Subjective Remarks Pt without complaints this am Objective Medications Current Medications Medications (Trade) Dose Ordered Sig/Thierry Route Start Time Stop Time Status Last Admin (NS Flush) 2 ml UNSCH PRN IVF 02/06/16 08:30 (Xanax) 0.25 mg Q8H PRN PO 02/06/16 11:15 02/07/16 21:21 (Ecotrin Ec) 325 mg DAILY PO 02/07/16 09:00 02/07/16 13:50 (Lipitor) 20 mg HS PO 02/06/16 21:00 02/07/16 21:14 (Coreg) 6.25 mg Q12HR PO 02/06/16 21:00 02/07/16 21:14 Patient Own Medication 40 ea 40 ea DAILY PO 02/07/16 09:00 Hold (NS 1000 ml Inj) 1,000 ml @ 0 mls/hr TITRATE PRN IV 02/06/16 13:00 02/06/16 12:58 Heparin Sodium (Porcine) 8000 units 8,000 units UNSCH PRN IV FLUSH 02/06/16 13:00 Sodium Chloride 1,000 ml @ 200 mls/hr Q5H PRN IV 02/06/16 13:00 (NS 250 ml Inj) 200 ml @ 0 mls/hr UNSCH PRN IV 02/06/16 13:00 (Mannitol Inj) 12.5 gm UNSCH PRN IV 02/06/16 13:00 (Albumin 25% Inj) 25 gm UNSCH PRN IV 02/06/16 13:00 (NS Flush) 5 ml UNSCH PRN IVF 02/06/16 13:00 (Heparin Inj) Dwell Heparin to f... UNSCH PRN OTHER 02/06/16 13:00 02/06/16 12:59 (Gentamicin (Dialysis) Inj) 10 mg UNSCH PRN OTHER 02/06/16 13:00 (Gelfoam 12 Mm/7 Mm Top) 1 foam UNSCH PRN TOP 02/06/16 13:00 02/07/16 10:34 (Zofran Inj) 4 mg UNSCH PRN IV 02/06/16 13:00 (Benadryl) 25 mg UNSCH PRN PO 02/06/16 13:00 (Nitrostat Sl) 0.4 mg UNSCH PRN SL 02/06/16 13:00 (Catapres) 0.1 mg UNSCH PRN PO 02/06/16 13:00 ([place] 5-325 Mg) 1 tab Q6H PRN PO 02/06/16 18:45 02/07/16 09:16 (Nitrostat Sl) 0.4 mg UNSCH PRN SL 02/06/16 20:30 02/06/16 20:55 ([place] 10-325 Mg) 1 tab Q4H PRN PO 02/07/16 14:30 02/07/16 19:39 Vital Signs / I&O Vital Signs Date Time Temp Pulse Resp B/P Pulse Ox O2 Delivery O2 Flow Rate FiO2 02/08/16 04:00 97.1 64 20 120/57 95 02/08/16 00:00 96.8 63 18 108/56 100 02/07/16 21:15 Nasal Cannula 2.00 02/07/16 21:15 16 02/07/16 20:00 72 02/07/16 20:00 97.8 78 20 108/56 92 02/07/16 19:39 98 Nasal Cannula 2.00 02/07/16 16:00 97.8 68 16 132/63 98 02/07/16 08:50 98 Nasal Cannula 2.00 02/07/16 08:00 100 Nasal Cannula 2.00 02/07/16 08:00 97.4 85 20 152/74 100 I/O 02/07/16 02/07/16 02/07/16 02/08/16 02/08/16 02/08/16 07:00 15:00 23:00 07:00 15:00 23:00 Intake Total 240 ml 240 ml 0 ml 0 ml Output Total 2000 ml Balance 240 ml -1760 ml 0 ml 0 ml Intake Oral 240 ml 240 ml 0 ml IV Total 0 ml 0 ml Hemodialysis 2000 ml # Voids 0 1 0 # Bowel Movements 0 0 0 Physical Exam GENERAL: Well developed, well nourished. No acute distress. HEENT: Jugular venous pressure is normal. CHEST: Lungs clear to auscultation bilaterally. Unlabored respiratory effort. CARDIAC: Regular rate and rhythm without S3, S4, or murmur. ABDOMEN: Soft, nontender, no hepatosplenomegaly. Bowel sounds present. EXTREMITIES: No clubbing, cyanosis, or edema. Assessment and Plan Assessment and Plan CP- no further episodes continue medical management arm pain- better Pulm edema- resolved with HD HTN- fair ESRD- per nephrology Available PRN Nita Cintron MD Feb 08, 2016 07:28
[2016-02-08] MEDS: CARVEDILOL 6.25 MG TAB PO SCH ×2 (07:57→20:12)
[2016-02-08] MEDS: ACETAMINOPHEN/HYDROcodone 325 MG/10 MG TAB PO PRN (07:57)
[2016-02-08] MEDS: ASPIRIN EC 325 MG TABEC PO SCH (09:00)
--- NOTE | 2016-02-08 09:25 | HHI.NPPN ---
Subjective Complaints: Shortness of Breath Renal Failure: Chronic, End Stage Renal Disease Interval History Still with axillary pain, NPO for I&D today. No acute renal concerns. (Lelo Chong) Review of Systems Musculoskeletal MS Remarks axillary pain (Lelo Chong) Skin Skin Remarks bilateral axillary lesions (Lelo Chong) Objective Data Data 02/07/16 02/08/16 19:00 07:00 Intake Total 240 ml 0 ml Output Total 2000 ml Balance -1760 ml 0 ml Intake Oral 240 ml 0 ml IV Total 0 ml Hemodialysis 2000 ml # Voids 1 0 # Bowel Movements 0 0 Vital Signs Date Time Temp Pulse Resp B/P Pulse Ox O2 Delivery O2 Flow Rate FiO2 02/08/16 08:00 98.6 91 20 146/82 100 02/08/16 04:00 97.1 64 20 120/57 95 02/08/16 00:00 96.8 63 18 108/56 100 02/07/16 21:15 Nasal Cannula 2.00 02/07/16 21:15 16 02/07/16 20:00 72 02/07/16 20:00 97.8 78 20 108/56 92 02/07/16 19:39 98 Nasal Cannula 2.00 02/07/16 16:00 97.8 68 16 132/63 98 (Lelo Chong) -: 02/06/16 0834 02/06/16 0834 Imaging Last 72 hours Impressions Chest X-Ray 02/06/16 0817 Signed Impressions: Service Date/Time: Saturday, February 06, 2016 08:57 - CONCLUSION: Interstitial and alveolar infiltrates with small effusions. Chano Jimenes MD (Lelo Chong) Physical Exam General Appearance: Well Developed, Well Nourished, No Acute Distress, Anxious ( Lelo Chong) Eyes Eye Exam: Pupils Equal, Sclera White, Extraocular Movement Intact (Lelo Chong) Ears & Nose Ears & Nose Exam: Nasal Mucosa [place] (Lelo Chong) Throat Throat Exam: Oral Mucosa [place] & Moist (Lelo Chong) Neck Neck Exam: Neck Supple, Trachea Midline (Lelo Chong) Pulmonary Resp Exam: Clear Bilaterally, Breath Sounds Equal (Lelo Chong) Cardiology CV Exam: Regular, Normal Sinus Rhythm, Murmur CV Remarks murmur radiates to retrosternal area (Lelo Chong) Gastrointestinal/Abdomen GI Exam: Soft, Non-Tender, Bowel Sounds Present (Lelo Chong) Genitourinary Exam: Clear Urine (Lelo Chnog) Musculoskeletal MS Exam: Joints Intact, Normal Tone, Good Strength (Lelo Chong) Integumentary Skin Exam: Clear, Warm (Lelo Chong) Extremeties Extremities Exam: No Edema, Pedal Pulses Palpable (Lelo Chong) Neurologic Neuro Exam: Alert, Awake, Oriented, Speech Clear, Moving All Extremities ( Leol Chong) Psychiatric Psych Exam: Appropriate Responses (Lelo Chong) Assessment/Plan Discussed Condition With: Patient Assessment Summary: Anemia of CKD Problem List: (1) ESRD (end stage renal disease) Plan: -- dialysis, had 3 liters UF yesterday no acute concerns monitor AVF access check phosphorus in am Medication should be adjusted for the patient's end-stage renal disease when indicated. Avoid gadolinium. high protein diet (2) Pulmonary edema Plan: Improved with dialysis Pulmonary following on room air (3) Boil, axilla Plan: prn pain control, would suggest changing [place] to Percocet as this is more effective for her, also given Toradol NPO for I&D today (4) Hypertension Plan: Blood pressure acceptable continue current medications (5) CAD (coronary artery disease) Plan: medical management (6) Anemia Plan: Hb stable Epogen with dialysis (Lelo Chong) Plan patient was seen and examined. Had dialysis yesterday. She is quite uncomfortable with pain in the right axilla. I & D today. Discussed with Dr. Lara, Percocet can be added for pain control. (Roland Miramontes MD) Problem Qualifiers (1) Pulmonary edema: Qualified Code: J81.0 - Acute pulmonary edema (2) Hypertension: Qualified Code: I10 - Essential hypertension (3) Anemia: Lelo Chong Feb 08, 2016 09:25 Roland Miramontes MD Feb 08, 2016 14:17
[2016-02-08] MEDS ORDERED: ePHEDrine/NS 50 MG/5 ML SYR IV ONE (09:34)
[2016-02-08] MEDS ORDERED: SODIUM CHLORID 0.9% 500 ML INJ 500 ML IV ONE (09:34)
[2016-02-08] MEDS ORDERED: PROPOFOL 200 MG/20 ML AMP IV ONE (09:34)
[2016-02-08] MEDS ORDERED: BUPIVACAINE/EPINEPHRINE 0.5% 50 ML VIAL ONE (10:39)
[2016-02-08] MEDS ORDERED: ceFAZolin INJ 1,000 MG VIAL ONE (10:39)
[2016-02-08] MEDS ORDERED: GENTAMICIN SULFATE 80 MG/2 ML VIAL ONE (10:40)
[2016-02-08] MEDS ORDERED: KETOROLAC TROMETHAMINE 30 MG/ML (IVP) VIAL IVP ONE (11:00)
[2016-02-08] MEDS ORDERED: DO NOT ADM ANY ANTICOAGULANT DRUGS XX PRN (13:09)
--- NOTE | 2016-02-08 14:24 | MB ---
cc: SUNI HERNÁNDEZ M.D. DATE OF CONSULTATION 02/08/2016 REASON FOR CONSULTATION Bilateral axillary abscesses, very tender, symptomatic. HISTORY This is a pleasant 84-year-old female who was recently admitted to the hospital for shortness of breath, CHF, end-stage renal disease on hemodialysis. She noticed some chest pain as well. During the hospitalization, to the retail parts professional that had been seeing her and the wrap checker, she started to complain more and more of bilateral axillary pain and it was noted she had bilateral axillary abscesses that measured approximately 2 cm, very erythematous and tender. Surgery was consulted. The patient has subsequently improved on her cardiac status and her shortness of breath after getting dialysis. PAST HISTORY: Significant for - 1. Hypertension. 2. Coronary disease. 3. Cardiomyopathy. 4. Aortic stenosis. 5. Congestive heart failure. 6. End-stage renal disease on dialysis. 7. Sleep apnea. PAST SURGICAL HISTORY 1. She has had cardiac caths in the past. 2. Bilateral hip and knee replacement. 3. Tonsillectomy. 4. Appendectomy. 5. Hysterectomy. 6. Right upper extremity A-V fistula. 7. She has had some cataract surgery as well. 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 PHYSICAL EXAMINATION General: She is a pleasant elderly lady looking stated age. Neck: Supple. Chest: Clear. Heart: Regular. Bilateral axillary region show on the right side two 2-cm abscesses that look like inflamed sebaceous cysts. The left one which is smaller, still inflamed, fairly tender. There is a small amount of drainage on both of them. Neurologic: She is alert and oriented, without focal deficits. LABORATORY DATA Reviewed with no contraindications for treating these inflamed sebaceous cysts. ASSESSMENT Multiple medical issues with bilateral inflamed sebaceous cysts. PLAN Operative intervention. This was discussed with the patient in detail and we will proceed to the operating room. Suni Hernández MD JDB/ANIYAH /1:35 PM /2:17 PM
--- NOTE | 2016-02-08 14:55 | HHI.PR ---
Subjective Subjective Remarks back from OR S/P I/D bilat axillary abscess feels better no cp no sob no fever agreeable with going to rehab Review of Systems Constitutional Constitutional Remarks 12 point ROS completed, negative except as noted above Vitals/Results Intake & Output 02/07/16 02/07/16 02/08/16 15:00 23:00 07:00 Intake Total 240 ml 0 ml 0 ml Output Total 2000 ml Balance -1760 ml 0 ml 0 ml Intake Oral 240 ml 0 ml IV Total 0 ml 0 ml Hemodialysis 2000 ml # Voids 1 0 # Bowel Movements 0 0 Vital Signs Vital Signs Date Time Temp Pulse Resp B/P Pulse Ox O2 Delivery O2 Flow Rate FiO2 02/08/16 13:55 16 97 Room Air 02/08/16 13:50 16 97 Room Air 02/08/16 13:45 64 16 128/62 100 02/08/16 13:30 70 16 130/63 100 Nasal Cannula 2 02/08/16 13:15 64 16 138/65 100 Nasal Cannula 2 02/08/16 13:05 97.7 70 16 161/68 100 Nasal Cannula 2 02/08/16 12:58 98 Nasal Cannula 2.00 02/08/16 10:54 18 02/08/16 08:57 19 02/08/16 08:00 98.6 91 20 146/82 100 02/08/16 08:00 69 02/08/16 08:00 100 Nasal Cannula 2.00 02/08/16 04:00 97.1 64 20 120/57 95 02/08/16 00:00 96.8 63 18 108/56 100 02/07/16 21:15 Nasal Cannula 2.00 02/07/16 20:00 72 02/07/16 20:00 97.8 78 20 108/56 92 02/07/16 19:39 98 Nasal Cannula 2.00 02/07/16 16:00 97.8 68 16 132/63 98 CBC/BMP: 02/06/16 0834 02/06/16 0834 Microbiology Microbiology 02/08/16 Gram Stain, Received Pending 02/08/16 Wound Culture, Received Pending Physical Exam General General Appearance: Well Developed, Well Nourished, No Acute Distress Eyes Eye Exam: Pupils Equal, Sclera White, Extraocular Movement Intact Ears & Nose Ears & Nose Exam: Nasal Mucosa [place] Throat Throat Exam: Oral Mucosa [place] & Moist Neck Neck Exam: Neck Supple, Trachea Midline Pulmonary Resp Exam: Clear Bilaterally, Breath Sounds Equal Cardiology CV Exam: Regular, Normal Sinus Rhythm, Murmur Gastrointestinal/Abdomen GI Exam: Soft, Non-Tender, Bowel Sounds Present, Non-Distended Musculoskeletal MS Exam: Joints Intact, Normal Tone, Good Strength Integumentary Skin Exam: Clear, Warm Skin Remarks bilat axillary dressings D/I Extremeties Extremities Exam: No Edema, Pedal Pulses Palpable Neurologic Neuro Exam: Alert, Awake, Oriented, Speech Clear, Moving All Extremities, No Focal Deficits Psychiatric Psych Exam: Appropriate Responses Assessment/Plan Assessment/Plan ASSESSMENT 1. Acute pulmonary edema, likely fluid overload due to end stage renal disease, rule out underlying ischemia, rule out myocardial infarction, rule out arrhythmia. 2. Hypertension. 3. Coronary artery disease. 4. History of cardiomyopathy. 5. Mild to moderate aortic stenosis. 6. End-stage renal disease on hemodialysis. 7. Small abscess bilateral axilla right more than left. 8. History of sleep apnea. 9. History of gastroesophageal reflux disease. 10. Status post chest pain Plan Improving HD per nephrology Clinically better continue ASA/nitrates/BB Continue statin Cardiology and nephrology following, input appreciated Status post 1 dose of vancomycin, Gen. surgery input appreciated, evaluated for bilat axillary abscess S/P I/D of bilat axillary abscess 02/08/2016, cultures obtained, follow results Continue analgesics, patient is allergic to morphine and Dilaudid Continue Pepcid PT evaluation SS for discharge planning-SNF placement D/W RN D/W Dr. Lara D/W pt. This patient was seen by myself and Dr. Lara, this note is written on his behalf. Garima Neely Feb 08, 2016 14:55
--- NOTE | 2016-02-08 14:56 | MP ---
cc: SUNI HERNÁNDEZ M.D. DATE OF PROCEDURE 02/08/2016 PREOPERATIVE DIAGNOSIS Bilateral inflamed sebaceous cysts bilateral axillary region, two on the right, one on the left. POSTOPERATIVE DIAGNOSIS Bilateral inflamed sebaceous cysts bilateral axillary region, two on the right, one on the left. PROCEDURE Excision with loose primary closure bilateral axillary sebaceous cysts that were inflamed. ANESTHESIA General. SURGEON Dr. Hernández. ELECTRONIC SYSTEM ENGINEER Alyssa LALA The WOVEN WOOD SHADE ASSEMBLER was present from beginning to the end of the case assisting in all portions of the procedure. It was necessary to have this individual in the room to assist in the above surgical procedure. The surgical procedure was assisted by the WOVEN WOOD SHADE ASSEMBLER. The WOVEN WOOD SHADE ASSEMBLER presence was necessary throughout the case for appropriate retraction, dissection, visualization, and resection of the important anatomical structures during the surgical procedure. The WOVEN WOOD SHADE ASSEMBLER was assisting throughout the entirety of the operation. The skill set of the WOVEN WOOD SHADE ASSEMBLER is medically and surgically necessary to safely complete the surgical procedure. During the surgical case the operating room surgical specialist was working instrument table and passing instruments to the attending surgeon and WOVEN WOOD SHADE ASSEMBLER The WOVEN WOOD SHADE ASSEMBLER was directly assisting the operating surgeon and involved in the technical aspects of the surgical case. PROCEDURE The patient is taken to the operating room, placed in supine position. After anesthesia both he axillary regions were prepped with Betadine. Time-out is done. We anesthetize all three areas with lidocaine solution. RIGHT X2 A 3 x 2-cm elliptical incision is made on the right side to remove an anterior sebaceous cyst. This is reapproximated loosely with a 3-0 nylon after using electrocautery to cauterize small bleeding vessels. The posterior abscess sebaceous cyst is treated similar with similar excision of this area in dimensions. This is closed with 3-0 nylon. LEFT We then direct our attention to the left side where a 2 x 3 cm elliptical incision was made after anesthetizing with Marcaine solution and the area is excised. The skin is then reapproximated loosely with 3-0 nylon. Steri-Strips applied. Sterile bandage applied. The patient tolerated the procedure well, had no immediate postop complications. MD RITA [place]/ANIYAH /1:38 PM /2:52 PM SY
--- NOTE | 2016-02-08 14:58 | HHI.FF ---
Face to Face Verification Diagnosis: (1) Boil, axilla (2) ESRD (end stage renal disease) (3) Pulmonary edema Physical Therapy Order: Evaluate and Treat Home Health Nursing Order: Medical education CHF education Wound care and dressing changes Nursing assessment with vital signs First Aid Nurse Order: To Provide: Long range planning (BUSH HOG OPERATOR CONSULT TO ASSIST WITH TRANSITIONING TO EITHER ILF OR JAIL ), Community services I have seen patient Wandy Meehan on 02/08/16. My clinical findings support the need for the requested home health care services because: Patient has SOB Deconditioned w/ increased weakness I certify that my clinical findings support that this patient is homebound because: Unsteady gait/balance Poor cardiac reserve Garima Neely Feb 08, 2016 14:58
[2016-02-08] MEDS: oxyCODONE/ACETAMINOPHEN 7.5 MG/325 MG TAB PO PRN ×2 (17:47→21:57)
--- NOTE | 2016-02-08 17:47 | HHI.DCPOC ---
Discharge Care Plan Diagnosis: (1) Shortness of breath (2) ESRD (end stage renal disease) (3) Anemia (4) CAD (coronary artery disease) (5) Hypertension (6) Boil, axilla (7) Hypoxia Your Health Problems Are: Chest Pain Fluid/Lung Overload Shortness of Breath Goals to Promote Your Health * To prevent worsening of your condition and complications * To maintain your health at the optimal level Directions to Meet Your Goals Take your medications as prescribed Follow your dietary instruction Follow activity as directed Keep your appointments as scheduled Take your immunizations and boosters as scheduled If your symptoms worsen call your PCP, if no PCP go to Urgent Care Center or Emergency Room Smoking is Dangerous to Your Health. Avoid second hand smoke Call the 24-hour hour crisis hotline for domestic abuse at Garima Neely [facility] Feb 08, 2016 17:47
[2016-02-08] MEDS: ATORVASTATIN 20 MG TAB PO SCH (20:12)
[2016-02-09 04:00] VITALS: BP 127/57; PULSE 73; RESP 18; TEMP 98.6; O2SAT 95
[2016-02-09 07:19] LABS: BICARBONATE 29.3 MEQ/L (21.0-32.0)
[2016-02-09 07:24] LABS: POTASSIUM 5.2 MEQ/L (3.5-5.1)
[2016-02-09 08:00] VITALS: BP 144/66; PULSE 72; RESP 19; TEMP 97.3; O2SAT 93
[2016-02-09] MEDS: CARVEDILOL 6.25 MG TAB PO SCH ×2 (09:00→20:34)
[2016-02-09] MEDS: ASPIRIN EC 325 MG TABEC PO SCH (09:01)
[2016-02-09] MEDS: oxyCODONE/ACETAMINOPHEN 7.5 MG/325 MG TAB PO PRN ×2 (11:05→20:39)
[2016-02-09 12:00] VITALS: BP 143/64; PULSE 75; RESP 18; TEMP 97.7; O2SAT 98
[2016-02-09] MEDS: ALPRAZolam 0.25 MG TAB PO PRN ×2 (12:22→20:39)
--- NOTE | 2016-02-09 12:23 | HHI.NPPN ---
Subjective Complaints: Shortness of Breath Renal Failure: Chronic, End Stage Renal Disease Interval History Due for dialysis today. Had axillary lesions removed in OR yesterday, pain improved. (Lelo Chong) Review of Systems Musculoskeletal MS Remarks axillary pain (Lelo Chong) Skin Skin Remarks bilateral axillary lesions (Lelo Chong) Objective Data Data 02/08/16 02/09/16 18:59 06:59 Intake Total 130 ml 480 ml Output Total 0 ml 0 ml Balance 130 ml 480 ml Intake Oral 120 ml 480 ml IV Total 10 ml Output Urine Total 0 ml 0 ml # Bowel Movements 0 0 Vital Signs Date Time Temp Pulse Resp B/P Pulse Ox O2 Delivery O2 Flow Rate FiO2 02/09/16 12:00 97.7 75 18 143/64 98 02/09/16 08:00 97.3 72 19 144/66 93 02/09/16 04:00 98.6 73 18 127/57 95 02/08/16 23:50 98.6 66 18 111/56 94 02/08/16 20:10 Nasal Cannula 2.00 02/08/16 20:00 97.6 65 17 111/58 94 02/08/16 18:27 95 Nasal Cannula 2.00 02/08/16 18:27 18 02/08/16 16:00 98.3 64 16 124/68 95 02/08/16 13:55 16 97 Room Air 02/08/16 13:50 16 97 Room Air 02/08/16 13:45 64 16 128/62 100 02/08/16 13:30 70 16 130/63 100 Nasal Cannula 2 02/08/16 13:15 64 16 138/65 100 Nasal Cannula 2 02/08/16 13:05 97.7 70 16 161/68 100 Nasal Cannula 2 02/08/16 12:58 98 Nasal Cannula 2.00 (Lelo Chong) -: 02/06/16 0834 02/09/16 0548 Microbiology 02/08/16 Gram Stain - Final, Resulted 02/08/16 Wound Culture, Resulted Pending (Lelo Chong) Physical Exam General Appearance: Well Developed, Well Nourished, No Acute Distress (Lelo Chong) Eyes Eye Exam: Pupils Equal, Sclera White, Extraocular Movement Intact (Lelo Chong) Ears & Nose Ears & Nose Exam: Nasal Mucosa [place] (Lelo Chong) Throat Throat Exam: Oral Mucosa [place] & Moist (Lelo Chong) Neck Neck Exam: Neck Supple, Trachea Midline (Lelo Chong) Pulmonary Resp Exam: Clear Bilaterally, Breath Sounds Equal (Lelo Chong) Cardiology CV Exam: Regular, Normal Sinus Rhythm, Murmur CV Remarks murmur radiates to retrosternal area (Lelo Chong) Gastrointestinal/Abdomen GI Exam: Soft, Non-Tender, Bowel Sounds Present, Non-Distended (Lelo Chong) Musculoskeletal MS Exam: Joints Intact, Normal Tone, Good Strength (Lelo Chong) Integumentary Skin Exam: Clear, Warm Skin Remarks B/L axillary lesions excised, dressing in place (Lelo Chong) Extremeties Extremities Exam: No Edema, Pedal Pulses Palpable (Lelo Chong) Neurologic Neuro Exam: Alert, Awake, Oriented, Speech Clear, Moving All Extremities, No Focal Deficits (Lelo Chong) Psychiatric Psych Exam: Appropriate Responses (Lelo Chong) Assessment/Plan Discussed Condition With: Patient Assessment Summary: Anemia of CKD Problem List: (1) ESRD (end stage renal disease) Plan: -- dialysis, she is due today no acute concerns monitor AVF access phos is acceptable, she is not on binders Medication should be adjusted for the patient's end-stage renal disease when indicated. Avoid gadolinium. high protein diet (2) Pulmonary edema Plan: Improved with dialysis Pulmonary following on room air (3) Boil, axilla Plan: s/o excision in OR yesterday, thought to be sebaceous cysts prn pain control, Percocet is effective continue wound care (4) Hypertension Plan: Blood pressure acceptable continue current medications (5) CAD (coronary artery disease) Plan: medical management (6) Anemia Plan: Hb stable Epogen with dialysis (Lelo Chong) Plan patient was seen and examined. s/p I & D. She is in a better mood as pain is controlled. Start Megace and nutritional support. (Roland Miramontes MD) Problem Qualifiers (1) Pulmonary edema: Qualified Code: J81.0 - Acute pulmonary edema (2) Hypertension: Qualified Code: I10 - Essential hypertension (3) Anemia: Lelo Chong Feb 09, 2016 12:23 Roland Miramontes MD Feb 09, 2016 20:19
--- NOTE | 2016-02-09 13:23 | HHI.PR ---
Subjective Subjective Remarks denies any chest pain, no SOB at rest. anxious at times, especailly when discussing discharge S/P ID 02/07, no acute pain noted. (Bharati Macedo) Review of Systems Constitutional Constitutional Remarks 12 pt. ROS assessed. See notes , otherwise negative (Bharati Macedo) Pulmonary Respiratory: Coughing (Bharati Macedo) GI/Abdomen GI/Abdomen Remarks No BM X 2days (Bharati Macedo) Psychiatric Psychiatric: Anxiety (Bharati Macedo) Vitals/Results Intake & Output 02/08/16 02/08/16 02/09/16 15:00 23:00 07:00 Intake Total 130 ml 240 ml 240 ml Output Total 0 ml 0 ml 0 ml Balance 130 ml 240 ml 240 ml Intake Oral 120 ml 240 ml 240 ml IV Total 10 ml Output Urine Total 0 ml 0 ml 0 ml # Bowel Movements 0 0 Vital Signs Vital Signs Date Time Temp Pulse Resp B/P Pulse Ox O2 Delivery O2 Flow Rate FiO2 02/09/16 12:22 16 02/09/16 12:00 97.7 75 18 143/64 98 02/09/16 08:00 97.3 72 19 144/66 93 02/09/16 04:00 98.6 73 18 127/57 95 02/08/16 23:50 98.6 66 18 111/56 94 02/08/16 20:10 Nasal Cannula 2.00 02/08/16 20:00 97.6 65 17 111/58 94 02/08/16 18:27 95 Nasal Cannula 2.00 02/08/16 16:00 98.3 64 16 124/68 95 02/08/16 13:55 16 97 Room Air 02/08/16 13:50 16 97 Room Air 02/08/16 13:45 64 16 128/62 100 02/08/16 13:30 70 16 130/63 100 Nasal Cannula 2 02/08/16 13:15 64 16 138/65 100 Nasal Cannula 2 02/08/16 13:05 97.7 70 16 161/68 100 Nasal Cannula 2 (Bharati Macedo) CBC/BMP: 02/06/16 0834 02/09/16 0548 Lab Results Laboratory Tests Test 02/09/16 05:48 Sodium Level 135 MEQ/L Potassium Level 5.2 MEQ/L Chloride Level 97 MEQ/L Carbon Dioxide Level 29.3 MEQ/L Anion Gap 9 MEQ/L Blood Urea Nitrogen 37 MG/DL Creatinine 4.95 MG/DL Estimat Glomerular Filtration 10 ML/MIN Rate Random Glucose 76 MG/DL Calcium Level 9.2 MG/DL Phosphorus Level 4.6 MG/DL Albumin 2.8 GM/DL (Bharati Macedo M. [employer]IST [employer]) Physical Exam General General Appearance: Well Developed, Well Nourished, No Acute Distress, Anxious (Bharati Macedo M. [employer]) Eyes Eye Exam: Pupils Equal, Sclera White, Extraocular Movement Intact (RemingtonBharati robles M. [employer]) Ears & Nose Ears & Nose Exam: Nasal Mucosa [place] ([place],Susan M. [employer]) Throat Throat Exam: Oral Mucosa [place] & Moist ([place],Bharati M. [employer]) Neck Neck Exam: Neck Supple, Trachea Midline ([place] suazo M. [employer]) Pulmonary Resp Exam: Crackles ([place] suazo M. [employer]) Cardiology CV Exam: Regular, Normal Sinus Rhythm, Murmur ([place],Susan M. [employer]) Gastrointestinal/Abdomen GI Exam: Soft, Non-Tender, Bowel Sounds Present, Non-Distended (RemingtonBharati suazo M. [employer]) Musculoskeletal MS Exam: Joints Intact, Normal Tone, Good Strength (RemingtonHaydee suazoan M. [employer]) Integumentary Skin Exam: Clear, Warm (RemingtonBharati suazo M. [employer]) Extremeties Extremities Exam: No Edema, Pedal Pulses Palpable (Bharati Macedo M. [employer]) Neurologic Neuro Exam: Alert, Awake, Oriented, Speech Clear, Moving All Extremities, No Focal Deficits (Haydee Macedoan M. [employer]) Psychiatric Psych Exam: Appropriate Responses (Bharati Macedo M. [employer]) Assessment/Plan Assessment/Plan ASSESSMENT 1. Acute pulmonary edema, likely fluid overload due to end stage renal disease, rule out underlying ischemia, rule out myocardial infarction, rule out arrhythmia. 2. Hypertension. 3. Coronary artery disease. 4. History of cardiomyopathy. 5. Mild to moderate aortic stenosis. 6. End-stage renal disease on hemodialysis. 7. Small abscess bilateral axilla right more than left., S/P ID, rt. Plan Improving HD per nephrology Clinically better continue ASA/nitrates/BB Continue statin Cardiology and nephrology following, input appreciated Status post 1 dose of vancomycin, Gen. surgery input appreciated, evaluated for bilat axillary abscess S/P I/D of bilat axillary abscess 02/08/2016, cultures obtained, follow results Continue analgesics, patient is allergic to morphine and Dilaudid Continue Pepcid PT evaluation add stool softener wean off oxygen and check sats on RA, if > 92 dc oxygen, d/w RN CM consult, pt. obs status, can't go to SNF, will need HHC with PT HHC can follow up on LTC needs, d/w CM Possible discharge today with HHC D/W RN D/W Dr. Lara D/W pt. D/W CM This patient was seen by myself and Dr. Lara, this note is written on his behalf. Discussed Condition with: Patient, Calendering Supervisor Discussed Condition Comment D/W Case management D/W RN D/W Dr. Lara D/W DAI/ Garima (Bharati Macedo) Assessment/Plan Patient seen and examined as above Labs reviewed medications reviewed Discussed with RN Plan of care discussed with DAI (Leo Lara MD) Bharati Macedo Feb 09, 2016 13:23 Leo Lara MD Feb 09, 2016 14:18 D/W pt. This patient was seen by myself and Dr. Lara, this note is written on his behalf. Discussed Condition with: Patient, Calendering Supervisor Discussed Condition Comment D/W Case management D/W RN D/W Dr. Lara D/W DAI/ Garima (Bharati Macedo) Assessment/Plan Patient seen and examined as above Labs reviewed medications reviewed Discussed with RN Plan of care discussed with DAI (Leo Lara MD) Bharati Macedo Feb 09, 2016 13:23 Leo Lara MD Feb 09, 2016 14:18
--- NOTE | 2016-02-09 15:49 | HHI.PR ---
Subjective Subjective Notes Resting in bed Pain controlled today Very thankful to Dr. Hernández Objective Vitals/I&O Vital Signs Date Time Temp Pulse Resp B/P Pulse Ox O2 Delivery O2 Flow Rate FiO2 02/09/16 12:22 16 02/09/16 12:00 97.7 75 143/64 98 02/08/16 20:10 Nasal Cannula 2.00 Labs Laboratory Tests Test 02/09/16 05:48 Sodium Level 135 Potassium Level 5.2 Chloride Level 97 Carbon Dioxide Level 29.3 Anion Gap 9 Blood Urea Nitrogen 37 Creatinine 4.95 Estimat Glomerular Filtration 10 Rate Random Glucose 76 Calcium Level 9.2 Phosphorus Level 4.6 Albumin 2.8 Date/Time Procedure Status Source Growth 02/08/16 12:33 Gram Stain - Final Resulted Abscess Other 02/08/16 12:33 Wound Culture - Preliminary Resulted S. Aureus Mrsa 02/06/16 09:13 Aerobic Blood Culture - Preliminary Resulted Blood Peripheral NO GROWTH IN 3 DAYS 02/06/16 09:13 Anaerobic Blood Culture - Preliminary Resulted Blood Peripheral NO GROWTH IN 3 DAYS Cardiovascular: Regular Lungs: Clear Abdomen: Non-distended, Non-tender Extremities: No edema Narrative Exam Bilateral axillary incisions c/d/i with sutures in place; no drainage A/P Assessment and Plan 85 year old POD1 I&D bilateral excision of axillary sebaceous cysts -Follow cultures -Okay to place dry dressings -Plan to follow up in Dr. Hernández's office in about 10 days for suture removal -GS will sign off; please call with questions Alyssa Means Feb 09, 2016 15:49
[2016-02-09 16:00] VITALS: BP 141/68; PULSE 76; RESP 17; TEMP 97.5; O2SAT 96
[2016-02-09 16:34] VITALS: PULSE 62
[2016-02-09] MEDS: DOCUSATE SODIUM 100 MG CAP PO SCH (20:34)
[2016-02-09] MEDS: ATORVASTATIN 20 MG TAB PO SCH (20:34)
[2016-02-10] VITALS (12 sets, daily range): BP systolic 96–145; BP diastolic 53–65; PULSE 64–141; RESP 16–18; TEMP 97.4–98.6; O2SAT 91–97
[2016-02-10] MEDS: oxyCODONE/ACETAMINOPHEN 7.5 MG/325 MG TAB PO PRN ×3 (07:29→20:39)
[2016-02-10] MEDS: CARVEDILOL 6.25 MG TAB PO SCH (07:29)
[2016-02-10] MEDS: ASPIRIN EC 325 MG TABEC PO SCH (07:30)
[2016-02-10] MEDS: DOCUSATE SODIUM 100 MG CAP PO SCH ×2 (07:30→20:39)
[2016-02-10] MEDS ORDERED: KETOROLAC TROMETHAMINE 60 MG/2 ML (IM) VIAL IM ONE (09:30)
[2016-02-10] MEDS: ALPRAZolam 0.25 MG TAB PO PRN (10:13)
--- NOTE | 2016-02-10 10:13 | HHI.PR ---
Subjective Remarks no chest pain No shortness of breath at rest Anxiety continues mild Decreased appetite No bowel movement in 3 days (Bharati Macedo) Objective Objective Results - Vital Signs Date Time Temp Pulse Resp B/P Pulse Ox O2 Delivery O2 Flow Rate FiO2 02/10/16 08:29 18 02/10/16 08:10 Room Air 02/10/16 08:00 98.2 70 18 145/65 96 02/10/16 04:00 98.0 71 16 130/63 97 02/10/16 00:00 98.6 65 16 110/65 94 02/09/16 20:35 Nasal Cannula 2.00 21 02/09/16 18:41 21 02/09/16 16:34 62 02/09/16 16:00 97.5 76 17 141/68 96 02/09/16 12:00 97.7 75 18 143/64 98 02/09/16 12:00 98 I/O 02/09/16 02/09/16 02/09/16 02/10/16 02/10/16 02/10/16 07:00 15:00 23:00 07:00 15:00 23:00 Intake Total 240 ml 360 ml 240 ml 240 ml Output Total 0 ml 0 ml 1500 ml 0 ml Balance 240 ml 360 ml -1260 ml 240 ml Intake Oral 240 ml 360 ml 240 ml 240 ml Output Urine Total 0 ml 0 ml 0 ml 0 ml Hemodialysis 1500 ml # Voids 0 # Bowel Movements 0 0 0 (Bharati Macedo) Result Diagram: 02/06/16 0834 02/09/16 0548 Physical Exam Physical Exam PHYSICAL EXAMINATION GENERAL: This is a well-developed, well-nourished female who appears to be in no acute distress. She is alert and awake, []. HEAD: Normocephalic without any lesion or mass noted. Facial features appear symmetric. OROPHARYNGEAL: Oropharynx without erythema or edema. NECK: Supple. No nuchal rigidity or lymphadenopathy. Trachea midline without deviation. CARDIAC: Regular rhythm, regular rate, S1 and S2 are heard. Murmur []; no gallops or rubs. LUNGS: Clear to auscultation bilaterally. [] wheeze, [] rhonchi or [] rale. No use of accessory muscles on inspiration or expiration. ABDOMEN: Soft, nontender, no organomegaly or masses. Bowel sounds are heard in all four quadrants. No rebound. No guarding. EXTREMITIES: [] edema. Pulses equal bilateral. [] cyanosis. NEUROLOGICAL: Patient mood and affect appropriate. No focal deficit SKIN:Warm and moist Objective Remarks 10 point review of systems obtained. Positives and negatives as noted above. ( Bharati Macedo) A/P Diagnosis: (1) Shortness of breath Plan: Today patient denies shortness of breath and seems to be feeling better over the the last 24 hours Currently the patient is on room air and tolerate without any distress of work of breathing (2) Anxiety (3) CAD (coronary artery disease) (4) Weight loss Plan: Patient states approximately 40 pound weight loss since December 2015. She is very concerned and is asking for options to assist in her appetite and muscle tone Renal diet increased from 4812-4580 carbs with at bedtime snack at. (5) Hypoxia Plan: Patient will be maintained on room air with O2 sat checks with vital signs Treatment regimen will include O2 at 2 L per nasal cannula and further evaluation of respiratory status before going home if warranted. (6) Arrhythmia Plan: Patient is Coreg dose was increased. Patient will be monitored on telemetry for any change in rhythm. Patient was seen to have V. tach noted on the monitor today Patient denied any chest pain or shortness of breath and did not appear symptomatic according to the nurse. (7) ESRD (end stage renal disease) Plan: She will continue with dialysis 3 times a week and be monitored per her customer service manager (8) MRSA infection Plan: Patient is status post I&D of bilateral axilla boils. She now is showing MRSA in the wound culture. ID consult pending Assessment and Plan ASSESSMENT 1. Acute pulmonary edema, likely fluid overload due to end stage renal disease, rule out underlying ischemia, rule out myocardial infarction, rule out arrhythmia. 2. Hypertension. 3. Coronary artery disease. 4. History of cardiomyopathy. 5. Mild to moderate aortic stenosis. 6. End-stage renal disease on hemodialysis. 7. Small abscess bilateral axilla right more than left., S/P ID, rt. Plan Improving HD per nephrology Clinically better continue ASA/nitrates/BB Continue statin Cardiology and nephrology following, input appreciated Gen. surgery input appreciated, evaluated for bilat axillary abscess S/P I/D of bilat axillary abscess 02/08/2016, cultures obtained, follow results Continue analgesics, patient is allergic to morphine and Dilaudid Continue Pepcid PT evaluation add stool softener will need HHC with PT HHC can follow up on LTC needs, d/w CM Discussed With: Nurse (discussed with BAR[employer] DRUM CUTTER and Dr. Lara) (Bharati Macedo) Assessment and Plan Patient seen and examined in detail as above Labs reviewed Telemetry monitoring reviewed Within normal limits magnesium level and potassium level Will monitor in house Discussed with patient Discussed with [employer] CUTTER about plan of care Discussed with RN (Leo Lara MD) Problem Qualifiers (1) CAD (coronary artery disease): Qualified Code: I25.10 - Coronary artery disease involving [place] heart without angina pectoris, unspecified vessel or lesion type (2) Arrhythmia: Qualified Code: I47.2 - Ventricular tachycardia Bharati Macedo Feb 10, 2016 10:13 Leo Lara MD Feb 10, 2016 15:12
--- NOTE | 2016-02-10 10:46 | HHI.NPPN ---
Subjective Complaints: Shortness of Breath Renal Failure: Chronic, End Stage Renal Disease Interval History Decreased appetite. Still reporting significant axillary pain s/p excision of lesions. (Lelo Chong) Review of Systems General Constitutional: Weight Change (Lelo Chong) Gastrointestinal GI Remarks decreased appetite (Lelo Chong) Musculoskeletal MS Remarks axillary pain (Lelo Chong) Skin Skin Remarks bilateral axillary lesions, excised, painful (Lelo Chong) Psych Psych: Depression, Anxiety (Lelo Chong) Objective Data Data 02/09/16 02/10/16 19:00 07:00 Intake Total 360 ml 480 ml Output Total 0 ml 1500 ml Balance 360 ml -1020 ml Intake Oral 360 ml 480 ml Output Urine Total 0 ml 0 ml Hemodialysis 1500 ml # Voids 0 # Bowel Movements 0 0 Vital Signs Date Time Temp Pulse Resp B/P Pulse Ox O2 Delivery O2 Flow Rate FiO2 02/10/16 08:29 18 02/10/16 08:10 Room Air 02/10/16 08:00 98.2 70 18 145/65 96 02/10/16 04:00 98.0 71 16 130/63 97 02/10/16 00:00 98.6 65 16 110/65 94 02/09/16 20:35 Nasal Cannula 2.00 21 02/09/16 18:41 21 02/09/16 16:34 62 02/09/16 16:00 97.5 76 17 141/68 96 02/09/16 12:00 97.7 75 18 143/64 98 02/09/16 12:00 98 (Lelo Chong) -: 02/06/16 0834 02/09/16 0548 Physical Exam General Appearance: Well Developed, No Acute Distress, Anxious, Malnourished (Lelo Chong) Eyes Eye Exam: Pupils Equal, Sclera White, Extraocular Movement Intact (Lelo Chong) Ears & Nose Ears & Nose Exam: Nasal Mucosa Daisy (Lelo Chong) Throat Throat Exam: Oral Mucosa [place] & Moist (Lleo Cohng) Neck Neck Exam: Neck Supple, Trachea Midline (Lelo Chong) Pulmonary Resp Exam: Crackles (Lelo Chong) Cardiology CV Exam: Regular, Normal Sinus Rhythm, Murmur CV Remarks murmur radiates to retrosternal area (Lelo Chong) Gastrointestinal/Abdomen GI Exam: Soft, Non-Tender, Bowel Sounds Present, Non-Distended (Lelo Chong) Musculoskeletal MS Exam: Joints Intact, Normal Tone, Good Strength (eLlo Chong) Integumentary Skin Exam: Clear, Warm Skin Remarks B/L axillary lesions excised, dressing in place (Lelo Chong) Extremeties Extremities Exam: No Edema, Pedal Pulses Palpable (Lelo Chong) Neurologic Neuro Exam: Alert, Awake, Oriented, Speech Clear, Moving All Extremities, No Focal Deficits (Lelo Chong) Psychiatric Psych Exam: Appropriate Responses (Lelo Chong) Assessment/Plan Discussed Condition With: Patient Assessment Summary: Anemia of CKD Problem List: (1) ESRD (end stage renal disease) Plan: -- dialysis, 1500 ml fluid removal yesterday no acute concerns, stable from renal perspective monitor AVF access phosphorus is acceptable, she is not on phosphate binders Medication should be adjusted for the patient's end-stage renal disease when indicated. Avoid gadolinium. high protein diet, nephro added, Megace started for appetite stimulation (2) Pulmonary edema Plan: Improved with dialysis Pulmonary following on room air (3) Boil, axilla Plan: s/o excision in OR , thought to be sebaceous cysts prn pain control, she is still reporting inadequate relief, on Percocet and toradol continue wound care general surgery signed off (4) Hypertension Plan: Blood pressure acceptable continue current medications (5) CAD (coronary artery disease) Plan: medical management (6) Anemia Plan: Hb stable Epogen with dialysis (Lelo Chong) Plan patient was seen and examined. Pulmonary edema has improved. Continues to have pain in the axillary area. ID has been consulted. Wound culture grew MRSA. ( Roland Miramontes MD) Problem Qualifiers (1) Pulmonary edema: Qualified Code: J81.0 - Acute pulmonary edema (2) Hypertension: Qualified Code: I10 - Essential hypertension (3) CAD (coronary artery disease): Qualified Code: I25.10 - Coronary artery disease involving [place] heart without angina pectoris, unspecified vessel or lesion type (4) Anemia: Lelo Chong Feb 10, 2016 10:46 Roland Miramontes MD Feb 10, 2016 16:16
[2016-02-10] MEDS ORDERED: MEGE40SU PO (11:22)
[2016-02-10] MEDS: POLYETHYLENE GLYCOL 17 GM PKG PO PRN (12:37)
[2016-02-10 14:39] LABS: BICARBONATE 31.6 MEQ/L (21.0-32.0); MAGNESIUM 2.1 MG/DL (1.5-2.5); POTASSIUM 3.8 MEQ/L (3.5-5.1)
[2016-02-10] MEDS: CARVEDILOL 12.5 MG TAB PO SCH (20:39)
[2016-02-10] MEDS: ATORVASTATIN 20 MG TAB PO SCH (20:39)
[2016-02-11] VITALS: BP 118/57; PULSE 71; RESP 16; TEMP 97.1; O2SAT 95
[2016-02-11 04:00] VITALS: BP 111/54; PULSE 70; RESP 15; TEMP 97.2; O2SAT 98
[2016-02-11 08:00] VITALS: BP 136/63; PULSE 68; PULSE 79; RESP 16; TEMP 97.7; O2SAT 97
[2016-02-11] MEDS: ASPIRIN EC 325 MG TABEC PO SCH (08:08)
[2016-02-11] MEDS: CARVEDILOL 12.5 MG TAB PO SCH ×2 (08:08→21:30)
[2016-02-11] MEDS: DOCUSATE SODIUM 100 MG CAP PO SCH ×2 (08:08→21:30)
[2016-02-11] MEDS: MEGESTROL ACETATE SUSP 400 MG/10 ML CUP PO SCH (08:09)
[2016-02-11] MEDS: oxyCODONE/ACETAMINOPHEN 7.5 MG/325 MG TAB PO PRN (13:21)
--- NOTE | 2016-02-11 14:03 | HHI.NPPN ---
Subjective Complaints: Shortness of Breath Renal Failure: Chronic, End Stage Renal Disease Interval History Two liter fluid removal with dialysis. Pain is improved. Appetite improved. ( Lelo Chong) Review of Systems General Constitutional: Weight Change (Lelo Chong) Gastrointestinal GI Remarks decreased appetite (Lelo Chong) Musculoskeletal MS Remarks axillary pain (Lelo Chong) Skin Skin Remarks bilateral axillary lesions, excised, painful (Lelo Chong) Psych Psych: Depression, Anxiety (Lelo Chong) Objective Data Data 02/10/16 02/11/16 19:00 07:00 Intake Total 702 ml 240 ml Balance 702 ml 240 ml Intake Oral 702 ml 240 ml IV Total 0 ml # Voids 0 0 # Bowel Movements 0 0 Vital Signs Date Time Temp Pulse Resp B/P Pulse Ox O2 Delivery O2 Flow Rate FiO2 02/11/16 08:30 Room Air 02/11/16 08:00 79 02/11/16 08:00 97.7 68 16 136/63 97 02/11/16 04:00 97.2 70 15 111/54 98 02/11/16 00:00 97.1 71 16 118/57 95 02/10/16 21:28 71 17 96/54 95 02/10/16 21:15 97 21 02/10/16 20:59 69 02/10/16 20:40 95 Room Air 02/10/16 20:00 73 02/10/16 20:00 97.8 69 16 107/53 92 02/10/16 16:00 97.4 67 17 110/56 91 (Lelo Chong) -: 02/10/16 1255 Physical Exam General Appearance: Well Developed, No Acute Distress, Anxious, Malnourished (Lelo Chong) Eyes Eye Exam: Pupils Equal, Sclera White, Extraocular Movement Intact (Lelo Chong) Ears & Nose Ears & Nose Exam: Nasal Mucosa [place] (Lelo Chong) Throat Throat Exam: Oral Mucosa [place] & Moist (Lelo Chong) Neck Neck Exam: Neck Supple, Trachea Midline (Lelo Chong) Pulmonary Resp Exam: Crackles (Lelo Chong) Cardiology CV Exam: Regular, Normal Sinus Rhythm, Murmur CV Remarks murmur radiates to retrosternal area (Lelo Chong) Gastrointestinal/Abdomen GI Exam: Soft, Non-Tender, Bowel Sounds Present, Non-Distended (Lelo Chong) Musculoskeletal MS Exam: Joints Intact, Normal Tone, Good Strength (Lelo Chong) Integumentary Skin Exam: Clear, Warm Skin Remarks B/L axillary lesions excised, dressing in place (Lelo Chong) Extremeties Extremities Exam: No Edema, Pedal Pulses Palpable (Lelo Chong) Neurologic Neuro Exam: Alert, Awake, Oriented, Speech Clear, Moving All Extremities, No Focal Deficits (Lelo Chong) Psychiatric Psych Exam: Appropriate Responses (Lelo Chong) Assessment/Plan Discussed Condition With: Patient Assessment Summary: Anemia of CKD Problem List: (1) ESRD (end stage renal disease) Plan: M-W-F dialysis, 2 liters removed yesterday no acute concerns, stable from renal perspective monitor AVF access phosphorus is acceptable, she is not on phosphate binders Medication should be adjusted for the patient's end-stage renal disease when indicated. Avoid gadolinium. high protein diet, nephro added, Megace started for appetite stimulation (2) Pulmonary edema Plan: Improved with dialysis Pulmonary following on room air (3) Boil, axilla Plan: + MRSA in wound s/p excision in OR , thought to be sebaceous cysts prn pain control, she is still reporting inadequate relief, on Percocet and toradol continue wound care general surgery signed off on contact isolation (4) Hypertension Plan: Blood pressure acceptable continue current medications (5) CAD (coronary artery disease) Plan: medical management (6) Anemia Plan: Hb stable Epogen with dialysis (Lelo Chong) Plan patient was seen and examined. Dialysis will be continued MWF. MRSA from the wound culture. ID has been consulted. (Roland Miramontes MD) Problem Qualifiers (1) Pulmonary edema: Qualified Code: J81.0 - Acute pulmonary edema (2) Hypertension: Qualified Code: I10 - Essential hypertension (3) CAD (coronary artery disease): Qualified Code: I25.10 - Coronary artery disease involving [place] heart without angina pectoris, unspecified vessel or lesion type (4) Anemia: Lelo Chong Feb 11, 2016 14:02 Roland Miramontes MD Feb 11, 2016 15:12
--- NOTE | 2016-02-11 14:48 | HHI.PR ---
Subjective Subjective Remarks went for HD today feeling "down", tearful tired of being in hospital no cp no sob tele reviewed, SR with narrow complex tach, no VT noted goddaughter at [facility] Review of Systems Constitutional Constitutional Remarks 12 point ROS completed, negative except as noted above Pulmonary Respiratory: Coughing Psychiatric Psychiatric: Anxiety Vitals/Results Intake & Output 02/10/16 02/10/16 02/11/16 15:00 23:00 07:00 Intake Total 702 ml 120 ml 120 ml Balance 702 ml 120 ml 120 ml Intake Oral 702 ml 120 ml 120 ml IV Total 0 ml 0 ml # Voids 0 0 0 # Bowel Movements 0 0 0 Vital Signs Vital Signs Date Time Temp Pulse Resp B/P Pulse Ox O2 Delivery O2 Flow Rate FiO2 02/11/16 14:21 18 02/11/16 08:30 Room Air 02/11/16 08:00 79 02/11/16 08:00 97.7 68 16 136/63 97 02/11/16 04:00 97.2 70 15 111/54 98 02/11/16 00:00 97.1 71 16 118/57 95 02/10/16 21:28 71 17 96/54 95 02/10/16 21:15 97 21 02/10/16 20:59 69 02/10/16 20:40 95 Room Air 02/10/16 20:00 73 02/10/16 20:00 97.8 69 16 107/53 92 02/10/16 16:00 97.4 67 17 110/56 91 CBC/BMP: 02/10/16 1255 Physical Exam General General Appearance: Well Developed, No Acute Distress, Anxious, Malnourished Eyes Eye Exam: Pupils Equal, Sclera White, Extraocular Movement Intact Ears & Nose Ears & Nose Exam: Nasal Mucosa [place] Throat Throat Exam: Oral Mucosa [place] & Moist Neck Neck Exam: Neck Supple, Trachea Midline Pulmonary Resp Exam: Crackles Cardiology CV Exam: Regular, Normal Sinus Rhythm, Murmur Gastrointestinal/Abdomen GI Exam: Soft, Non-Tender, Bowel Sounds Present, Non-Distended Musculoskeletal MS Exam: Joints Intact, Normal Tone, Good Strength Integumentary Skin Exam: Clear, Warm Skin Remarks bilat axillary dressings D/I Extremeties Extremities Exam: No Edema, Pedal Pulses Palpable Neurologic Neuro Exam: Alert, Awake, Oriented, Speech Clear, Moving All Extremities, No Focal Deficits Psychiatric Psych Exam: Appropriate Responses Assessment/Plan Assessment/Plan ASSESSMENT 1. Acute pulmonary edema, likely fluid overload due to end stage renal disease, rule out underlying ischemia, rule out myocardial infarction, rule out arrhythmia. 2. Hypertension. 3. Coronary artery disease. 4. History of cardiomyopathy. 5. Mild to moderate aortic stenosis. 6. End-stage renal disease on hemodialysis. 7. Small abscess bilateral axilla right more than left., S/P ID, rt. Plan Improving HD per nephrology Clinically better continue ASA/nitrates/BB Continue statin Cardiology and nephrology following, input appreciated Status post 1 dose of vancomycin, Gen. surgery input appreciated, evaluated for bilat axillary abscess S/P I/D of bilat axillary abscess 02/08/2016, cultures + MRSA ID consult pending Continue analgesics Pepcid for GI prophylaxis PT evaluation anxious and tearful, continue with Xanax PRN NSVT 02/09, dc held, inc. Coreg 12.5 mg PO BID, labs checked -stable CM consult for SNF placement will wait for recommendations from ID, and dc next 1-2 days D/W RN D/W Dr. Lara D/W pt./family-questions answered in detail. Spoke to daughter on phone, she agrees with SNF, would like for pt. to go to [facility] or [facility] after. D/W CM This patient was seen by myself and Dr. Lara, this note is written on his behalf. Garima Neely Feb 11, 2016 14:48
[2016-02-11] MEDS: ALPRAZolam 0.25 MG TAB PO PRN (15:20)
[2016-02-11 16:00] VITALS: BP 133/58; PULSE 93; RESP 18; TEMP 96.9; O2SAT 98
[2016-02-11 20:00] VITALS: BP 97/50; PULSE 76; RESP 20; TEMP 98.7; O2SAT 97
--- NOTE | 2016-02-11 21:09 | PD.ID.CON ---
History of Present Illness Service ID Consult Requested By Dr Lara Reason for Consult MRSA axilla infx Primary Care Physician Ashlyn Mao MD Diagnoses: History of Present Illness Pt well known to me from previous hospitalisations Pt developped b/l axilla abscess few days ago an d presented with pain swelling uner arms Both abscesses were I+D she is on vancomycin and states improvement No fever, chills Marked weight loss noted since I saw her last time Pt has multiple med problems, including ESRD /HD Review of Systems ROS Limitations: Poor Historian Past Family Social History Allergies: Coded Allergies: Dilaudid (Verified Allergy, Severe, ANAPHYLACTIC, 02/06/16) Morphine (Verified Allergy, Severe, ANAPHYLACTIC, 02/06/16) *MDRO Multi-Drug Resistant Organism (Verified Adverse Reaction, Unknown, ) 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 Past Medical History ESRD on HD M-W-F CAD s/p stents. Recent catheterization indicated left ventricular ejection fraction 4550%. Moderate coronary artery disease 3. Medical management advised. GERD HTN Anemia Arthritis Depression Metabolic Bone Disorder Past Surgical History AVF RUE Cardiac cath renal artery stent Hysterectomy Total knee, right Total knee, left x2 total hip replacement, bilaterally tonsils Active Ordered Medications Medications where reviewed in EMR Antibiotics Include: none Family History Non-Contributory. Social History No Tobacco. No ETOH. No Illicit Drugs. Physical Exam Vital Signs Vital Signs Date Time Temp Pulse Resp B/P Pulse Ox O2 Delivery O2 Flow Rate FiO2 02/11/16 16:00 96.9 93 18 133/58 98 02/11/16 14:21 18 02/11/16 08:30 Room Air 02/11/16 08:00 79 02/11/16 08:00 97.7 68 16 136/63 97 02/11/16 04:00 97.2 70 15 111/54 98 02/11/16 00:00 97.1 71 16 118/57 95 02/10/16 21:28 71 17 96/54 95 02/10/16 21:15 97 21 Physical Exam CONSTITUTIONAL/GENERAL: This is a thin chronically ill apperinfg patient, in no apparent distress. TUBES/LINES/DRAINS: AVF in place RUE SKIN: No jaundice, rashes, or lesions. No wounds seen anteriorly. Skin temperature appropriate. Not diaphoretic. B/L axillae incisions clean and dry, stitiches in place, no drainage, no erythema, no induraion HEAD: Atraumatic. Normocephalic. EYES: Pupils equal and round and reactive. Extraocular motions intact. No scleral icterus. No injection or drainage. Fundi not examined. ENT: Oral mucosae without visible erythema, exudates, masses, or lesions. NECK: Trachea midline. Supple, nontender. No palpable thyroid enlargement or nodularity. CARDIOVASCULAR: Regular rate and rhythm without murmurs, gallops, or rubs. No JVD. Peripheral pulses symmetric. RESPIRATORY/CHEST: Symmetric, unlabored respirations. Clear to auscultation. Breath sounds equal bilaterally. No wheezes, rales, or rhonchi. GASTROINTESTINAL: Abdomen soft, non-tender, nondistended. No hepato-splenomegaly , or palpable masses. No guarding. Bowel sounds present. GENITOURINARY: Without palpable bladder distension. MUSCULOSKELETAL: Extremities without clubbing, cyanosis, or edema. No mottling or clubbing. LYMPHATICS: No palpable cervical or supraclavicular adenopathy. NEUROLOGICAL: Lethargic, arousable. Speech normalMoves all extremities. PSYCHIATRIC: flat affect Laboratory Date/Time Procedure Status Source Growth 02/08/16 12:33 Gram Stain - Final Complete Abscess Other 02/08/16 12:33 Wound Culture - Final Complete S. Aureus Mrsa Result Diagram: 02/10/16 1255 Imaging Last Impressions Chest X-Ray 02/06/16 0817 Signed Impressions: Service Date/Time: Saturday, February 06, 2016 08:57 - CONCLUSION: Interstitial and alveolar infiltrates with small effusions. Chano Jimenes MD Assessment and Plan Assessment and Plan B/L axillae infected sebacious cysts , MRSA - op report was reviewed - clinically resolved infection - path was reviewed: acute abscesses Multiplle med prob ESRD/HD - no need for abx tx at this point - cont isolation per hospital protocol dw Maria R Carrero MD Feb 11, 2016 21:09
[2016-02-11] MEDS: ATORVASTATIN 20 MG TAB PO SCH (21:30)
[2016-02-11] MEDS: HEPARIN SODIUM - SQ 10,000 UNITS/ML VIAL SQ SCH (21:31)
[2016-02-12] VITALS (7 sets, daily range): BP systolic 90–156; BP diastolic 47–70; PULSE 66–75; RESP 16–20; TEMP 96.5–99.1; O2SAT 93–98
[2016-02-12] MEDS: HEPARIN SODIUM - SQ 10,000 UNITS/ML VIAL SQ SCH (04:49)
[2016-02-12 05:56] LABS: AUTOMATED NEUTROPHIL # 3.7 TH/MM3 (1.8-7.7); BASOPHIL % 0.8 % (0.0-2.0); EOSINOPHIL # 0.4 TH/MM3 (0-0.4); EOSINOPHIL % 6.5 % (0.0-4.0); HEMATOCRIT 28.6 % (35.0-46.0); HEMO FLAGS DIFF FINAL; LYMPH % 23.5 % (9.0-44.0); LYMPHOCYTE # 1.5 TH/MM3 (1.0-4.8); MEAN CELL VOLUME 97.2 FL (80.0-100.0); MEAN CORPUSCULAR HEMOGLOBIN 32.5 PG (27.0-34.0); MEAN CORPUSCULAR HGB CONC 33.4 % (32.0-36.0); MONO % 9.1 % (0.0-8.0); NEUT % 60.1 % (16.0-70.0); PLATELET COUNT 202 TH/MM3 (150-450); RED BLOOD COUNT 2.94 MIL/MM3 (4.00-5.30); WHITE BLOOD COUNT 6.2 TH/MM3 (4.0-11.0)
[2016-02-12 05:58] LABS: BICARBONATE 32.8 MEQ/L (21.0-32.0)
[2016-02-12 06:14] LABS: POTASSIUM 4.7 MEQ/L (3.5-5.1)
[2016-02-12] MEDS: ASPIRIN EC 325 MG TABEC PO SCH (08:18)
[2016-02-12] MEDS: MEGESTROL ACETATE SUSP 400 MG/10 ML CUP PO SCH (08:18)
[2016-02-12] MEDS: DOCUSATE SODIUM 100 MG CAP PO SCH ×2 (08:18→21:36)
[2016-02-12] MEDS: CARVEDILOL 12.5 MG TAB PO SCH ×2 (08:18→21:36)
--- NOTE | 2016-02-12 08:22 | PD.CARD.PN ---
Subjective Subjective Remarks No chest pain, no shortness of breath, no palpitations, asymptomatic during episode of atrial fibrillation Objective Medications Current Medications Medications (Trade) Dose Ordered Sig/Thierry Route Start Time Stop Time Status Last Admin (Xanax) 0.25 mg Q8H PRN PO 02/06/16 11:15 02/11/16 15:20 (Ecotrin Ec) 325 mg DAILY PO 02/07/16 09:00 02/11/16 08:08 (Lipitor) 20 mg HS PO 02/06/16 21:00 02/11/16 21:30 Patient Own Medication 40 ea 40 ea DAILY PO 02/07/16 09:00 Hold (NS 1000 ml Inj) 1,000 ml @ 0 mls/hr TITRATE PRN IV 02/06/16 13:00 02/06/16 12:58 Heparin Sodium (Porcine) 8000 units 8,000 units UNSCH PRN IV FLUSH 02/06/16 13:00 Sodium Chloride 1,000 ml @ 200 mls/hr Q5H PRN IV 02/06/16 13:00 (NS 250 ml Inj) 200 ml @ 0 mls/hr UNSCH PRN IV 02/06/16 13:00 (Mannitol Inj) 12.5 gm UNSCH PRN IV 02/06/16 13:00 (Albumin 25% Inj) 25 gm UNSCH PRN IV 02/06/16 13:00 (Heparin Inj) Dwell Heparin to f... UNSCH PRN OTHER 02/06/16 13:00 02/06/16 12:59 (Gentamicin (Dialysis) Inj) 10 mg UNSCH PRN OTHER 02/06/16 13:00 (Gelfoam 12 Mm/7 Mm Top) 1 foam UNSCH PRN TOP 02/06/16 13:00 02/07/16 10:34 (Zofran Inj) 4 mg UNSCH PRN IV 02/06/16 13:00 (Benadryl) 25 mg UNSCH PRN PO 02/06/16 13:00 (Nitrostat Sl) 0.4 mg UNSCH PRN SL 02/06/16 13:00 (Catapres) 0.1 mg UNSCH PRN PO 02/06/16 13:00 (Nitrostat Sl) 0.4 mg UNSCH PRN SL 02/06/16 20:30 02/06/16 20:55 (Percocet 7.5-325 Mg) 2 tab Q4H PRN PO 02/08/16 11:30 02/11/16 13:21 (Colace) 100 mg BID PO 02/09/16 21:00 02/11/16 21:30 (Megace Liq) 800 mg DAILY PO 02/11/16 09:00 02/11/16 08:09 (Coreg) 12.5 mg Q12HR PO 02/10/16 21:00 02/11/16 21:30 (Miralax) 17 gm DAILY PRN PO 02/10/16 12:30 02/10/16 12:37 (Heparin Inj) 5,000 units Q8HR SQ 02/11/16 22:00 02/12/16 04:49 Vital Signs / I&O Vital Signs Date Time Temp Pulse Resp B/P Pulse Ox O2 Delivery O2 Flow Rate FiO2 02/12/16 08:00 96.5 67 18 120/59 98 02/12/16 04:00 98.5 69 20 102/47 94 02/12/16 00:00 98.4 70 20 101/49 94 02/11/16 20:00 98.7 76 20 97/50 97 02/11/16 16:00 96.9 93 18 133/58 98 02/11/16 14:21 18 02/11/16 08:30 Room Air I/O 02/11/16 02/11/16 02/11/16 02/12/16 02/12/16 02/12/16 07:00 15:00 23:00 07:00 15:00 23:00 Intake Total 120 ml 480 ml 240 ml 0 ml Output Total 2000 ml 0 ml Balance 120 ml -1520 ml 240 ml 0 ml Intake Oral 120 ml 480 ml 240 ml 0 ml IV Total 0 ml Output Urine Total 0 ml Hemodialysis 2000 ml # Voids 0 0 # Bowel Movements 0 0 1 1 Physical Exam GENERAL: NAD, AAOx3 SKIN: Warm and dry. HEAD: Atraumatic. Normocephalic. EYES: Pupils equal and round. No scleral icterus. No injection or drainage. ENT: No nasal bleeding or discharge. Mucous membranes pink and moist. NECK: Trachea midline. No JVD. CARDIOVASCULAR: Regular rate and rhythm. 2/6 crescendo-decrescendo mid peaking murmur to the RSB RESPIRATORY: No accessory muscle use. Clear to auscultation. Breath sounds equal bilaterally. GASTROINTESTINAL: Abdomen soft, non-tender, nondistended. Hepatic and splenic margins not palpable. MUSCULOSKELETAL: Extremities without clubbing, cyanosis, or edema. No obvious deformities. Right arm AVF NEUROLOGICAL: Awake and alert. No obvious cranial nerve deficits. Motor grossly within normal limits. Five out of 5 muscle strength in the arms and legs. Normal speech. PSYCHIATRIC: Appropriate mood and affect; insight and judgment normal. Laboratory Laboratory Tests Test 02/11/16 02/12/16 18:16 03:58 Magnesium Level 2.0 MG/DL White Blood Count 6.2 TH/MM3 Red Blood Count 2.94 MIL/MM3 Hemoglobin 9.5 GM/DL Hematocrit 28.6 % Mean Corpuscular Volume 97.2 FL Mean Corpuscular Hemoglobin 32.5 PG Mean Corpuscular Hemoglobin 33.4 % Concent Red Cell Distribution Width 14.0 % Platelet Count 202 TH/MM3 Mean Platelet Volume 8.9 FL Neutrophils (%) (Auto) 60.1 % Lymphocytes (%) (Auto) 23.5 % Monocytes (%) (Auto) 9.1 % Eosinophils (%) (Auto) 6.5 % Basophils (%) (Auto) 0.8 % Neutrophils # (Auto) 3.7 TH/MM3 Lymphocytes # (Auto) 1.5 TH/MM3 Monocytes # (Auto) 0.6 TH/MM3 Eosinophils # (Auto) 0.4 TH/MM3 Basophils # (Auto) 0.0 TH/MM3 CBC Comment DIFF FINAL Differential Comment Sodium Level 136 MEQ/L Potassium Level 4.7 MEQ/L Chloride Level 97 MEQ/L Carbon Dioxide Level 32.8 MEQ/L Anion Gap 6 MEQ/L Blood Urea Nitrogen 35 MG/DL Creatinine 4.24 MG/DL Estimat Glomerular Filtration 12 ML/MIN Rate Random Glucose 91 MG/DL Calcium Level 9.1 MG/DL Assessment and Plan Problem List: (1) Atrial fibrillation, new onset (2) MRSA infection (3) Hypertension (4) CAD (coronary artery disease) (5) Boil, axilla (6) ESRD (end stage renal disease) Assessment and Plan 1) Atrial fibrillation with RVR last night for short period, asymptomatic... may have had episodes in the past and not known 2) CHADSVASc = 5, putting her at high risk of CVA 3) Spoke extensively with Dr. Meehan about her risk of bleeding and CVA, she would like to try anticoagulation while here in the hospital 4) Eliquis 2.5mg BID, due to ESRD and age > 80 5) Decrease ASA to 81mg daily 6) Continue Coreg 7) Follow up with Dr. Valentin on discharge Problem Qualifiers (1) Hypertension: Qualified Code: I10 - Essential hypertension (2) CAD (coronary artery disease): Qualified Code: I25.10 - Coronary artery disease involving [place] heart without angina pectoris, unspecified vessel or lesion type Jhon Stack DO Feb 12, 2016 08:22
[2016-02-12] MEDS ORDERED: APIXABAN 2.5 MG TABLET PO SCH (09:00)
--- NOTE | 2016-02-12 10:42 | HHI.PR ---
Subjective Interval History feeling feeling weak and tired Some gas pain No bowel movement for 4 days no cp Occasional shortness of breath tele reviewed Review of system for 10 point system otherwise unremarkable Review of Systems Pulmonary Respiratory: Coughing Psychiatric Psychiatric: Anxiety Vitals/Results Intake & Output 02/11/16 02/11/16 02/12/16 15:00 23:00 07:00 Intake Total 480 ml 240 ml 0 ml Output Total 2000 ml 0 ml Balance -1520 ml 240 ml 0 ml Intake Oral 480 ml 240 ml 0 ml Output Urine Total 0 ml Hemodialysis 2000 ml # Voids 0 # Bowel Movements 0 1 1 Vital Signs Vital Signs Date Time Temp Pulse Resp B/P Pulse Ox O2 Delivery O2 Flow Rate FiO2 02/12/16 08:00 96.5 67 18 120/59 98 02/12/16 04:00 98.5 69 20 102/47 94 02/12/16 00:00 98.4 70 20 101/49 94 02/11/16 20:00 98.7 76 20 97/50 97 02/11/16 16:00 96.9 93 18 133/58 98 02/11/16 14:21 18 CBC/BMP: 02/12/16 0358 02/12/16 0358 Lab Results Laboratory Tests Test 02/11/16 02/12/16 18:16 03:58 Magnesium Level 2.0 MG/DL White Blood Count 6.2 TH/MM3 Red Blood Count 2.94 MIL/MM3 Hemoglobin 9.5 GM/DL Hematocrit 28.6 % Mean Corpuscular Volume 97.2 FL Mean Corpuscular Hemoglobin 32.5 PG Mean Corpuscular Hemoglobin 33.4 % Concent Red Cell Distribution Width 14.0 % Platelet Count 202 TH/MM3 Mean Platelet Volume 8.9 FL Neutrophils (%) (Auto) 60.1 % Lymphocytes (%) (Auto) 23.5 % Monocytes (%) (Auto) 9.1 % Eosinophils (%) (Auto) 6.5 % Basophils (%) (Auto) 0.8 % Neutrophils # (Auto) 3.7 TH/MM3 Lymphocytes # (Auto) 1.5 TH/MM3 Monocytes # (Auto) 0.6 TH/MM3 Eosinophils # (Auto) 0.4 TH/MM3 Basophils # (Auto) 0.0 TH/MM3 CBC Comment DIFF FINAL Differential Comment Sodium Level 136 MEQ/L Potassium Level 4.7 MEQ/L Chloride Level 97 MEQ/L Carbon Dioxide Level 32.8 MEQ/L Anion Gap 6 MEQ/L Blood Urea Nitrogen 35 MG/DL Creatinine 4.24 MG/DL Estimat Glomerular Filtration 12 ML/MIN Rate Random Glucose 91 MG/DL Calcium Level 9.1 MG/DL Physical Exam General General Appearance: Well Developed, No Acute Distress, Anxious, Malnourished Eyes Eye Exam: Pupils Equal, Sclera White, Extraocular Movement Intact Ears & Nose Ears & Nose Exam: Nasal Mucosa [place] Throat Throat Exam: Oral Mucosa [place] & Moist Neck Neck Exam: Neck Supple, Trachea Midline Pulmonary Resp Exam: Breath Sounds Equal, No Distress, Diminished Breath Sounds Resp Remarks Diminished diminished breath sounds bibasally only Cardiology CV Exam: Regular, Normal Sinus Rhythm, Murmur Gastrointestinal/Abdomen GI Exam: Soft, Non-Tender, Bowel Sounds Present, Non-Distended Musculoskeletal MS Exam: Joints Intact, Normal Tone, Good Strength Integumentary Skin Exam: Clear, Warm Extremeties Extremities Exam: No Edema, Pedal Pulses Palpable Neurologic Neuro Exam: Alert, Awake, Oriented, Speech Clear, Moving All Extremities, No Focal Deficits Psychiatric Psych Exam: Appropriate Responses Assessment/Plan Assessment/Plan ASSESSMENT 1. Acute pulmonary edema, likely fluid overload due to end stage renal disease, rule out underlying ischemia, rule out myocardial infarction, rule out arrhythmia. 2. Hypertension. 3. Coronary artery disease. 4. History of cardiomyopathy. 5. Mild to moderate aortic stenosis. 6. End-stage renal disease on hemodialysis. 7. Small abscess bilateral axilla right more than left., S/P ID, rt. 8. New onset atrial fibrillation Plan Patient had new onset atrial fibrillation yesterday. Now back to sinus rhythm. Appreciate cardiology input. Now on Eliquis and baby aspirin. Discontinue schedule heparin Constipation plan for leg sedative Appreciate infectious disease input no need for antibiotics HD per nephrology continue ASA/nitrates/BB Continue statin Cardiology and nephrology following, input appreciated Gen. surgery input appreciated, evaluated for bilat axillary abscess S/P I/D of bilat axillary abscess 02/08/2016, cultures + MRSA Continue analgesics Pepcid for GI prophylaxis PT evaluation For anxiety, continue with Xanax PRN NSVT 02/09, dc held, inc. Coreg 12.5 mg PO BID, labs checked -stable CM consult for SNF placement Will monitor in house today if a stable plan for discharge tomorrow Discussed with production administrator Discusses pharmacist D/W RN Discussed with patient Leo Lara MD Feb 12, 2016 10:42
[2016-02-12] MEDS ORDERED: BISACODYL 10 MG SUPP RECTAL ONE (10:45)
[2016-02-12] MEDS: APIXABAN 2.5 MG TABLET PO SCH ×2 (11:07→21:35)
[2016-02-12] MEDS: ASPIRIN 81 MG CHEW TAB CHEW SCH (11:07)
[2016-02-12] MEDS: POLYETHYLENE GLYCOL 17 GM PKG PO PRN (11:20)
--- NOTE | 2016-02-12 12:43 | HHI.NPPN ---
Subjective Complaints: Shortness of Breath Renal Failure: Chronic, End Stage Renal Disease Interval History patient was seen and examined. Complains of weakness, she is tearful. Seen by cardiology for atrial fibrillation. Appears to have converted back to NSR. On Eliquis. Review of Systems General Constitutional: Weight Change Gastrointestinal GI Remarks decreased appetite Musculoskeletal MS Remarks axillary pain Skin Skin Remarks bilateral axillary lesions, excised, painful Psych Psych: Depression, Anxiety Objective Data Data 02/11/16 02/12/16 19:00 07:00 Intake Total 480 ml 240 ml Output Total 2000 ml 0 ml Balance -1520 ml 240 ml Intake Oral 480 ml 240 ml Output Urine Total 0 ml Hemodialysis 2000 ml # Voids 0 # Bowel Movements 0 2 Vital Signs Date Time Temp Pulse Resp B/P Pulse Ox O2 Delivery O2 Flow Rate FiO2 02/12/16 12:00 99.1 66 17 90/52 97 02/12/16 08:00 96.5 67 18 120/59 98 02/12/16 04:00 98.5 69 20 102/47 94 02/12/16 00:00 98.4 70 20 101/49 94 02/11/16 20:00 98.7 76 20 97/50 97 02/11/16 16:00 96.9 93 18 133/58 98 02/11/16 14:21 18 -: 02/12/16 0358 02/12/16 0358 Physical Exam General Appearance: Well Developed, No Acute Distress, Anxious, Malnourished Eyes Eye Exam: Pupils Equal, Sclera White, Extraocular Movement Intact Ears & Nose Ears & Nose Exam: Nasal Mucosa [place] Throat Throat Exam: Oral Mucosa [place] & Moist Neck Neck Exam: Neck Supple, Trachea Midline Pulmonary Resp Exam: Breath Sounds Equal, No Distress, Diminished Breath Sounds Cardiology CV Exam: Regular, Normal Sinus Rhythm, Murmur Gastrointestinal/Abdomen GI Exam: Soft, Non-Tender, Bowel Sounds Present, Non-Distended Musculoskeletal MS Exam: Joints Intact, Normal Tone, Good Strength Integumentary Skin Exam: Clear, Warm Extremeties Extremities Exam: No Edema, Pedal Pulses Palpable Neurologic Neuro Exam: Alert, Awake, Oriented, Speech Clear, Moving All Extremities, No Focal Deficits Psychiatric Psych Exam: Appropriate Responses Assessment/Plan Discussed Condition With: Patient Assessment Summary: Anemia of CKD Problem List: (1) ESRD (end stage renal disease) Plan: continue dialysis MWF. no acute concerns, stable from renal perspective monitor AVF access phosphorus is acceptable, she is not on phosphate binders Medication should be adjusted for the patient's end-stage renal disease when indicated. Avoid gadolinium. high protein diet, nephro added, Megace started for appetite stimulation (2) Pulmonary edema Plan: Improved with dialysis Pulmonary following on room air (3) Boil, axilla Plan: + MRSA in wound s/p excision in OR , thought to be sebaceous cysts prn pain control, she is still reporting inadequate relief, on Percocet and toradol continue wound care general surgery signed off on contact isolation (4) Hypertension Plan: Blood pressure acceptable continue current medications (5) CAD (coronary artery disease) Plan: medical management (6) Anemia Plan: Hb stable Epogen with dialysis Plan she can be discharged from renal standpoint. Problem Qualifiers (1) Pulmonary edema: Qualified Code: J81.0 - Acute pulmonary edema (2) Hypertension: Qualified Code: I10 - Essential hypertension (3) CAD (coronary artery disease): Qualified Code: I25.10 - Coronary artery disease involving [place] heart without angina pectoris, unspecified vessel or lesion type (4) Anemia: Roland Miramontes MD Feb 12, 2016 12:43
[2016-02-12] MEDS: ATORVASTATIN 20 MG TAB PO SCH (21:35)
[2016-02-13 04:12] VITALS: BP 110/56; PULSE 65; RESP 17; TEMP 98.4; O2SAT 96
[2016-02-13] MEDS: oxyCODONE/ACETAMINOPHEN 7.5 MG/325 MG TAB PO PRN (06:42)
--- NOTE | 2016-02-13 07:42 | PD.CARD.PN ---
Subjective Subjective Remarks No CP/SOB over night, no bleeding, no palpitations Objective Medications Current Medications Medications (Trade) Dose Ordered Sig/Thierry Route Start Time Stop Time Status Last Admin (NS Flush) 2 ml UNSCH PRN IVF 02/06/16 08:30 (Xanax) 0.25 mg Q8H PRN PO 02/06/16 11:15 02/11/16 15:20 (Lipitor) 20 mg HS PO 02/06/16 21:00 02/12/16 21:35 Patient Own Medication 40 ea 40 ea DAILY PO 02/07/16 09:00 Hold (NS 1000 ml Inj) 1,000 ml @ 0 mls/hr TITRATE PRN IV 02/06/16 13:00 02/06/16 12:58 Heparin Sodium (Porcine) 8000 units 8,000 units UNSCH PRN IV FLUSH 02/06/16 13:00 Sodium Chloride 1,000 ml @ 200 mls/hr Q5H PRN IV 02/06/16 13:00 (NS 250 ml Inj) 200 ml @ 0 mls/hr UNSCH PRN IV 02/06/16 13:00 (Mannitol Inj) 12.5 gm UNSCH PRN IV 02/06/16 13:00 (Albumin 25% Inj) 25 gm UNSCH PRN IV 02/06/16 13:00 (NS Flush) 5 ml UNSCH PRN IVF 02/06/16 13:00 (Heparin Inj) Dwell Heparin to f... UNSCH PRN OTHER 02/06/16 13:00 02/06/16 12:59 (Gentamicin (Dialysis) Inj) 10 mg UNSCH PRN OTHER 02/06/16 13:00 (Gelfoam 12 Mm/7 Mm Top) 1 foam UNSCH PRN TOP 02/06/16 13:00 02/07/16 10:34 (Zofran Inj) 4 mg UNSCH PRN IV 02/06/16 13:00 (Benadryl) 25 mg UNSCH PRN PO 02/06/16 13:00 (Nitrostat Sl) 0.4 mg UNSCH PRN SL 02/06/16 13:00 (Catapres) 0.1 mg UNSCH PRN PO 02/06/16 13:00 (Nitrostat Sl) 0.4 mg UNSCH PRN SL 02/06/16 20:30 02/06/16 20:55 (Percocet 7.5-325 Mg) 2 tab Q4H PRN PO 02/08/16 11:30 02/13/16 06:42 (Colace) 100 mg BID PO 02/09/16 21:00 02/12/16 21:36 (Megace Liq) 800 mg DAILY PO 02/11/16 09:00 02/12/16 08:18 (Coreg) 12.5 mg Q12HR PO 02/10/16 21:00 02/12/16 21:36 (Miralax) 17 gm DAILY PRN PO 02/10/16 12:30 02/12/16 11:20 (Aspirin Chew) 81 mg DAILY CHEW 02/12/16 09:00 02/12/16 11:07 (Eliquis) 2.5 mg BID PO 02/12/16 10:45 02/12/16 21:35 Vital Signs / I&O Vital Signs Date Time Temp Pulse Resp B/P Pulse Ox O2 Delivery O2 Flow Rate FiO2 02/13/16 04:12 98.4 65 17 110/56 96 02/12/16 23:37 97.9 71 16 97/50 93 02/12/16 20:14 97.5 75 18 139/67 93 02/12/16 16:00 98.0 73 17 156/70 93 02/12/16 12:00 99.1 66 17 90/52 97 02/12/16 08:00 96.5 67 18 120/59 98 I/O 02/12/16 02/12/16 02/12/16 02/13/16 02/13/16 02/13/16 07:00 15:00 23:00 07:00 15:00 23:00 Intake Total 0 ml 240 ml 380 ml 360 ml Output Total 0 ml Balance 0 ml 240 ml 380 ml 360 ml Intake Oral 0 ml 240 ml 380 ml 360 ml IV Total 0 ml Output Urine Total 0 ml # Voids 1 0 0 # Bowel Movements 1 0 2 0 Physical Exam GENERAL: NAD, AAOx3 SKIN: Warm and dry. HEAD: Atraumatic. Normocephalic. EYES: Pupils equal and round. No scleral icterus. No injection or drainage. ENT: No nasal bleeding or discharge. Mucous membranes pink and moist. NECK: Trachea midline. No JVD. CARDIOVASCULAR: Regular rate and rhythm. 2/6 crescendo-decrescendo mid peaking murmur to the RSB RESPIRATORY: No accessory muscle use. Clear to auscultation. Breath sounds equal bilaterally. GASTROINTESTINAL: Abdomen soft, non-tender, nondistended. Hepatic and splenic margins not palpable. MUSCULOSKELETAL: Extremities without clubbing, cyanosis, or edema. No obvious deformities. Right arm AVF NEUROLOGICAL: Awake and alert. No obvious cranial nerve deficits. Motor grossly within normal limits. Five out of 5 muscle strength in the arms and legs. Normal speech. PSYCHIATRIC: Appropriate mood and affect; insight and judgment normal. Laboratory GENERAL: SKIN: Warm and dry. HEAD: Atraumatic. Normocephalic. EYES: Pupils equal and round. No scleral icterus. No injection or drainage. ENT: No nasal bleeding or discharge. Mucous membranes pink and moist. NECK: Trachea midline. No JVD. CARDIOVASCULAR: Regular rate and rhythm. RESPIRATORY: No accessory muscle use. Clear to auscultation. Breath sounds equal bilaterally. GASTROINTESTINAL: Abdomen soft, non-tender, nondistended. Hepatic and splenic margins not palpable. MUSCULOSKELETAL: Extremities without clubbing, cyanosis, or edema. No obvious deformities. NEUROLOGICAL: Awake and alert. No obvious cranial nerve deficits. Motor grossly within normal limits. Five out of 5 muscle strength in the arms and legs. Normal speech. PSYCHIATRIC: Appropriate mood and affect; insight and judgment normal. Assessment and Plan Problem List: (1) Atrial fibrillation, new onset (2) MRSA infection (3) Hypertension (4) CAD (coronary artery disease) (5) Boil, axilla (6) ESRD (end stage renal disease) Assessment and Plan 1) Atrial fibrillation with RVR two nights ago for short period, asymptomatic... may have had episodes in the past and not known... no events yesterday or last night 2) CHADSVASc = 5, putting her at high risk of CVA 3) Spoke extensively with Dr. Meehan about her risk of bleeding and CVA, she would like to try anticoagulation while here in the hospital 4) Eliquis 2.5mg BID, due to ESRD and age > 80 5) Decrease ASA to 81mg daily, will consider stopping when seen by Dr. Valentin outpatient 6) Continue Coreg 7) Follow up with Dr. Valentin on discharge 8) Will see PRN Problem Qualifiers (1) Hypertension: Qualified Code: I10 - Essential hypertension (2) CAD (coronary artery disease): Qualified Code: I25.10 - Coronary artery disease involving [place] heart without angina pectoris, unspecified vessel or lesion type Jhon Stack DO Feb 13, 2016 07:42
[2016-02-13 08:00] VITALS: BP 112/53; PULSE 71; RESP 17; TEMP 98.6; O2SAT 97
[2016-02-13] MEDS: CARVEDILOL 12.5 MG TAB PO SCH (08:44)
[2016-02-13] MEDS: MEGESTROL ACETATE SUSP 400 MG/10 ML CUP PO SCH (08:44)
[2016-02-13] MEDS: ALPRAZolam 0.25 MG TAB PO PRN (08:44)
[2016-02-13] MEDS: APIXABAN 2.5 MG TABLET PO SCH (08:44)
[2016-02-13] MEDS: ASPIRIN 81 MG CHEW TAB CHEW SCH (08:44)
[2016-02-13] MEDS: DOCUSATE SODIUM 100 MG CAP PO SCH (08:44)
--- NOTE | 2016-02-13 10:41 | HHI.PR ---
Subjective Interval History feeling better No abdominal pain no cp Offering no complaint tele reviewed Review of system for 10 point system otherwise unremarkable Review of Systems Pulmonary Respiratory: Coughing Psychiatric Psychiatric: Anxiety Vitals/Results Intake & Output 02/12/16 02/12/16 02/13/16 15:00 23:00 07:00 Intake Total 240 ml 380 ml 360 ml Balance 240 ml 380 ml 360 ml Intake Oral 240 ml 380 ml 360 ml IV Total 0 ml # Voids 1 0 0 # Bowel Movements 0 2 0 Vital Signs Vital Signs Date Time Temp Pulse Resp B/P Pulse Ox O2 Delivery O2 Flow Rate FiO2 02/13/16 08:00 98.6 71 17 112/53 97 02/13/16 04:12 98.4 65 17 110/56 96 02/12/16 23:37 97.9 71 16 97/50 93 02/12/16 20:14 97.5 75 18 139/67 93 02/12/16 16:00 98.0 73 17 156/70 93 02/12/16 12:00 99.1 66 17 90/52 97 CBC/BMP: 02/12/16 0358 02/12/16 0358 Physical Exam General General Appearance: Well Developed, No Acute Distress, Anxious, Malnourished Eyes Eye Exam: Pupils Equal, Sclera White, Extraocular Movement Intact Ears & Nose Ears & Nose Exam: Nasal Mucosa [place] Throat Throat Exam: Oral Mucosa [place] & Moist Neck Neck Exam: Neck Supple, Trachea Midline Pulmonary Resp Exam: Breath Sounds Equal, No Distress, Diminished Breath Sounds Resp Remarks Diminished diminished breath sounds bibasally only Cardiology CV Exam: Regular, Normal Sinus Rhythm, Murmur Gastrointestinal/Abdomen GI Exam: Soft, Non-Tender, Bowel Sounds Present, Non-Distended Musculoskeletal MS Exam: Joints Intact, Normal Tone, Good Strength Integumentary Skin Exam: Clear, Warm Extremeties Extremities Exam: No Edema, Pedal Pulses Palpable Neurologic Neuro Exam: Alert, Awake, Oriented, Speech Clear, Moving All Extremities, No Focal Deficits Psychiatric Psych Exam: Appropriate Responses Assessment/Plan Assessment/Plan ASSESSMENT 1. Acute pulmonary edema, likely fluid overload due to end stage renal disease, rule out underlying ischemia, rule out myocardial infarction, rule out arrhythmia. 2. Hypertension. 3. Coronary artery disease. 4. History of cardiomyopathy. 5. Mild to moderate aortic stenosis. 6. End-stage renal disease on hemodialysis. 7. Small abscess bilateral axilla right more than left., S/P ID, rt. 8. New onset atrial fibrillation Plan Patient had new onset atrial fibrillation yesterday. Now back to sinus rhythm. Appreciate cardiology input. on Eliquis and baby aspirin. Discontinued schedule heparin Appreciate infectious disease input no need for antibiotics HD per nephrology. Appreciate input continue ASA/nitrates/BB Continue statin Cardiology and nephrology following, input appreciated Gen. surgery input appreciated, evaluated for bilat axillary abscess S/P I/D of bilat axillary abscess 02/08/2016, cultures + MRSA Continue analgesics Pepcid for GI prophylaxis PT evaluation For anxiety, continue with Xanax PRN NSVT 02/09, dc held, inc. Coreg 12.5 mg PO BID, labs checked -stable CM consult for SNF placement As patient is overall a stable plan to discharge her to SNF D/W RN Discussed with patient Leo Lara MD Feb 13, 2016 10:41
[2016-02-13] MEDS ORDERED: Aspirin Chew CHEW (10:44)
[2016-02-13] MEDS ORDERED: OXYC1TAB35 PO (10:44)
[2016-02-13] MEDS ORDERED: APIX2.5T PO (10:44)
[2016-02-13] MEDS ORDERED: ALPR.25 PO (10:44)
[2016-02-13] MEDS ORDERED: DOCU1CAP39 PO (10:44)
[2016-02-13] MEDS ORDERED: CARV12.5 PO (10:44)
--- NOTE | 2016-02-13 11:56 | HHI.NPPN ---
Subjective Complaints: Shortness of Breath Renal Failure: Chronic, End Stage Renal Disease Interval History patient is comfortable. In a better mood today. Review of Systems General Constitutional: Weight Change Gastrointestinal GI Remarks decreased appetite Musculoskeletal MS Remarks axillary pain Skin Skin Remarks bilateral axillary lesions, excised, painful Psych Psych: Depression, Anxiety Objective Data Data 02/12/16 02/13/16 19:00 07:00 Intake Total 240 ml 740 ml Balance 240 ml 740 ml Intake Oral 240 ml 740 ml IV Total 0 ml # Voids 1 0 # Bowel Movements 0 2 Vital Signs Date Time Temp Pulse Resp B/P Pulse Ox O2 Delivery O2 Flow Rate FiO2 02/13/16 08:00 98.6 71 17 112/53 97 02/13/16 04:12 98.4 65 17 110/56 96 02/12/16 23:37 97.9 71 16 97/50 93 02/12/16 20:14 97.5 75 18 139/67 93 02/12/16 16:00 98.0 73 17 156/70 93 02/12/16 12:00 99.1 66 17 90/52 97 -: 02/12/16 0358 02/12/16 0358 Physical Exam General Appearance: Well Developed, No Acute Distress, Anxious, Malnourished Eyes Eye Exam: Pupils Equal, Sclera White, Extraocular Movement Intact Ears & Nose Ears & Nose Exam: Nasal Mucosa Kimball Throat Throat Exam: Oral Mucosa Kimball & Moist Neck Neck Exam: Neck Supple, Trachea Midline Pulmonary Resp Exam: Breath Sounds Equal, No Distress, Diminished Breath Sounds Cardiology CV Exam: Regular, Normal Sinus Rhythm, Murmur Gastrointestinal/Abdomen GI Exam: Soft, Non-Tender, Bowel Sounds Present, Non-Distended Musculoskeletal MS Exam: Joints Intact, Normal Tone, Good Strength Integumentary Skin Exam: Clear, Warm Extremeties Extremities Exam: No Edema, Pedal Pulses Palpable Neurologic Neuro Exam: Alert, Awake, Oriented, Speech Clear, Moving All Extremities, No Focal Deficits Psychiatric Psych Exam: Appropriate Responses Assessment/Plan Discussed Condition With: Patient Assessment Summary: Anemia of CKD Problem List: (1) ESRD (end stage renal disease) Plan: continue dialysis MWF. She can be discharged from renal standpoint. phosphorus is acceptable, she is not on phosphate binders Medication should be adjusted for the patient's end-stage renal disease when indicated. Avoid gadolinium. high protein diet, Nepro added, Megace started for appetite stimulation (2) Pulmonary edema Plan: Improved with dialysis Pulmonary following on room air (3) Boil, axilla Plan: + MRSA in wound s/p excision in OR , thought to be sebaceous cysts prn pain control, she is still reporting inadequate relief, on Percocet and toradol continue wound care general surgery signed off on contact isolation (4) Hypertension Plan: Blood pressure acceptable continue current medications (5) CAD (coronary artery disease) Plan: medical management (6) Anemia Plan: Hemoglobin is low but stable Epogen with dialysis Plan she can be discharged from renal standpoint. Problem Qualifiers (1) Pulmonary edema: Qualified Code: J81.0 - Acute pulmonary edema (2) Hypertension: Qualified Code: I10 - Essential hypertension (3) CAD (coronary artery disease): Qualified Code: I25.10 - Coronary artery disease involving [place] heart without angina pectoris, unspecified vessel or lesion type (4) Anemia: Roland Miramontes MD Feb 13, 2016 11:56
[2016-02-13 12:00] VITALS: BP 90/48; PULSE 66; RESP 16; TEMP 98.5; O2SAT 95
--- NOTE | 2016-02-14 16:25 | HHI.DS ---
Discharge Summary Admission Date Feb 10, 2016 at 11:34 Discharge Date: Feb 13, 2016 Admitting Diagnosis pulm edema, sob, hypoxia, esrd on hd (1) Pulmonary edema (2) Atrial fibrillation, new onset (3) MRSA infection (4) Anxiety (5) Boil, axilla (6) CAD (coronary artery disease) (7) Weight loss (8) Hypoxia (9) ESRD (end stage renal disease) (10) Hypertension (11) Cardiomyopathy (12) Murmur (13) Hypothyroid (14) Hyperlipidemia (15) Aortic stenosis Procedures S/P I/D of bilat axillary abscess 02/08/2016 CBC/BMP: 02/12/16 0358 02/12/16 0358 Significant Findings Laboratory Tests Test 02/12/16 03:58 Red Blood Count 2.94 MIL/MM3 (4.00-5.30) Hemoglobin 9.5 GM/DL (11.6-15.3) Hematocrit 28.6 % (35.0-46.0) Monocytes (%) (Auto) 9.1 % (0.0-8.0) Eosinophils (%) (Auto) 6.5 % (0.0-4.0) Chloride Level 97 MEQ/L (98-107) Carbon Dioxide Level 32.8 MEQ/L (21.0-32.0) Blood Urea Nitrogen 35 MG/DL (7-18) Creatinine 4.24 MG/DL (0.50-1.00) Estimat Glomerular Filtration 12 ML/MIN (>89) Rate Imaging Last Impressions Chest X-Ray 02/06/16 0817 Signed Impressions: Service Date/Time: Saturday, February 06, 2016 08:57 - CONCLUSION: Interstitial and alveolar infiltrates with small effusions. Chano Jimenes MD Hospital Course This is an 84-year-old -[place] female with prior history of hypertension, coronary artery disease, cardiomyopathy, moderate aortic stenosis, end-stage renal disease who is on hemodialysis. The patient came to the ER complaining of sudden onset of shortness of breath that started this morning which was associated with heaviness in the chest that lasted about 20 minutes. The discomfort was moderate in intensity. She described this as heaviness, a pressing pain that is nonradiating. She denied vomiting but was feeling nauseous. She denied fever or chills. She denied cough or sputum production. The patient is on dialysis and gets dialyzed Sunday, Sunday and Sunday. Last Sunday she had a difficult time completing her dialysis due to some problem with the AV fistula and apparently it was not completed. She claims to be compliant with her medications otherwise. Upon arrival she was noted to be hypoxemic. She had bibasilar crackles. Chest x-ray shows pulmonary edema and fluid overload. EKG was negative for acute finding. She was given a dose of antibiotics to cover for pneumonia and recommendation was given by the ER physician for the patient to be admitted to hospital. Nephrology service was consulted for urgent dialysis. Dr. Infante saw the patient and the patient has already received dialysis and had about 3.0-3.5 liters of fluid was removed reportedly. She was already feeling much better. The patient also reported having a boil in both axilla especially the right one that started on . They are painful little boils with scanty drainage. She denied fever but has some chills. She reported that she never had this kind of boil before. Pt. admitted for: ASSESSMENT 1. Acute pulmonary edema, likely fluid overload due to end stage renal disease, rule out underlying ischemia, rule out myocardial infarction, rule out arrhythmia. 2. Hypertension. 3. Coronary artery disease. 4. History of cardiomyopathy. 5. Mild to moderate aortic stenosis. 6. End-stage renal disease on hemodialysis. 7. Small abscess bilateral axilla right more than left., S/P ID, rt. 8. New onset atrial fibrillation During the course of the hospitalization, the following events took place: Pt. admitted, seen by nephrology, emergent HD done with symptom improvement She was continued on home meds. Gen. surgery input appreciated, evaluated for bilat axillary abscess S/P I/D of bilat axillary abscess 02/08/2016 During hospitalization she seen by cardiology was stable, continued on home meds On 02/09, she was in the process of getting discharged, when she was noted with non sustained wide complex tach. Coreg was increased, BMP and Mg checked, stable. Also cultures came back + MRSA ID evaluated pt. no abx recommended, infection resolved. Pt. was changed to inpatient status. On 02/11, she went into afib after HD, new onset. Cardiology requested to evaluate again Pt. went back to Cardiology, Dr. Stack, evaluated pt. CHADSVASc = 5, putting her at high risk of CVA He spoke extensively with pt about her risk of bleeding and CVA, she would like to try anticoagulation while here in the hospital Eliquis 2.5mg BID, due to ESRD and age > 80 Decreased ASA to 81mg daily, will consider stopping when seen by Dr. Valentin outpatient Recommended to continue Coreg Discontinued schedule heparin continue ASA/nitrates/BB Continue statin Continue analgesics Pepcid for GI prophylaxis PT evaluation For anxiety, continue with Xanax PRN Symptoms improved, no ectopy, no SOB/CP Less anxious agreeable with going to SNF CM consulted for SNF placement. Pt. discharged to SNF in stable condition. Pt Condition on Discharge: Stable Discharge Disposition: Discharge to SNF Discharge Instructions DIET: Follow Instructions for: Heart Healthy Diet Activities you can perform: Weight Bearing as Irma Follow up Referrals: Cardiology Nephrology PCP Follow-up Surgical - 1 Week with Santiago Castro MD New Medications: Apixaban (Eliquis) 2.5 Mg Tab 2.5 MG PO BID clot prevention #60 TAB Carvedilol (Coreg) 12.5 Mg Tab 12.5 MG PO Q12HR heart rhythm #62 TAB Docusate Sodium (Dok) 100 Mg Cap 100 MG PO BID constipation #60 CAP Megestrol Liq (Megestrol Liq) 40 Mg/Ml Susp 800 MG PO DAILY POOR APPETITE #60 Ref 1 CONTAINER Oxycodone-Acetaminophen (Oxycodone-Acetaminophen) 7.5-325 mg Tab 2 TAB PO Q4H PRN PAIN SCALE 6 TO 10 #60 TAB ([Aspirin Chew]) 81 MG CHEW 81 MG CHEW DAILY blood clot prevention #30 TAB.CHEW Continued Medications: Alprazolam (Xanax) 0.25 Mg Tab 0.25 MG PO Q8H PRN ANXIETY #20 TAB (This prescription has been renewed) Atorvastatin (Lipitor) 20 Mg Tab 20 MG PO HS CAD #30 TAB Multiple Vitamins W/ Minerals (Multivitamin Adults) 1 Tab 1 TAB PO DAILY Nutritional Supplement Ref 0 TAB Travoprost Opth Drops (Travatan Z Opth Drops) 0.004 % Soln 1 DROP EACH EYE HS PRN Glaucoma #1 Ref 0 BOTTLE Vilazodone (Viibryd) 40 Mg Tab 40 MG PO DAILY Control Depression #30 Ref 0 TAB Discontinued Medications: Aspirin DR (Aspirin EC) 81 Mg Tabdr 325 MG PO DAILY CAD #30 TAB Carvedilol (Coreg) 6.25 Mg Tab 6.25 MG PO Q12HR HTN #60 TAB Garima Neely Feb 14, 2016 16:25
--- NOTE | 2016-02-19 12:28 | PQ ---
Physician Query Response Document PATIENT: ANNELIEES SUMMERS : 1930 ADMIT DATE: 02/10/2016 11:34 AM DISCH DATE: 02/13/2016 4:18 PM RESPONDING PROVIDER #: Janessa QUERY TEXT: Documentation Clarification Your help is requested in clarifying the following clinical documentation, if you can please further specify in the medical record and discharge summary. Dr. LARA, patient was changed from OBSERVATION to ADMISSION on 02-10-2016. What is/was diagnosis for change fron OBS to INPATIENT(PLEASE SPECIFY) The patient's Clinical Indicators include: Dr. LARA, PATIENT WAS PLACED IN OBSERVATION ON 02/06/2016 for acute pulmonary edema/fluid overload. Discharge orders were written on 02-10-16.The patient was then changed to ADMISSION on 02-09-2015. February 07 cardiology progress note "edema resolved". Please review the question below and answer to the best of your ability. Query created by: Ciro Viera on 02/16/2016 8:41 AM RESPONSE TEXT: Pt had MRSA infection with bilt axillary abcess both Had ID. Need iv abx and needed ID input Electronically signed by: Leo Lara MD 02/19/2016 12:24 PM
[2016-06-08] MEDS ORDERED: ALPR.25 PO ×2 (18:36)
[2016-06-08] MEDS ORDERED: ULTR50TA5 PO (18:36)
[2016-06-08] MEDS ORDERED: CEPH-460 PO (22:57)
== END 2016-02-13 16:18 | DRG 573 ==
LOC: NEPC 08:11 → INTOOBSV 10:04 → NEDA 10:04 → N07B 15:50 → OBSVTOIN 02-10 11:34
PROVIDERS: ADMIT Specialist; ATTEND Specialist
PROC: 5A1D60Z (ICD-10-PCS; principal; 2016-02-06)
PROC: 0XB50ZZ Excision of Left Axilla, Open Approach (ICD-10-PCS; 2016-02-08)
PROC: 0XB40ZZ Excision of Right Axilla, Open Approach (ICD-10-PCS; 2016-02-08)
DX: L02.411 Cutaneous abscess of right axilla (principal); J81.0 Acute pulmonary edema; I47.2 Ventricular tachycardia; N18.6 End stage renal disease; I42.9 Cardiomyopathy, unspecified; I12.0 Hypertensive chronic kidney disease with stage 5 chronic kidney disease or end stage renal disease; E87.70 Fluid overload, unspecified; E88.89 Other specified metabolic disorders; L02.412 Cutaneous abscess of left axilla; L02.421 Furuncle of right axilla; L02.422 Furuncle of left axilla; L72.3 Sebaceous cyst; I50.9 Heart failure, unspecified; Z99.2 Dependence on renal dialysis; R09.02 Hypoxemia; I25.10 Atherosclerotic heart disease of native coronary artery without angina pectoris; G47.30 Sleep apnea, unspecified; K21.9 Gastro-esophageal reflux disease without esophagitis; Z95.5 Presence of coronary angioplasty implant and graft; M19.90 Unspecified osteoarthritis, unspecified site; F41.9 Anxiety disorder, unspecified; F32.9 Major depressive disorder, single episode, unspecified; I35.0 Nonrheumatic aortic (valve) stenosis; E03.9 Hypothyroidism, unspecified; Z96.643 Presence of artificial hip joint, bilateral; Z96.653 Presence of artificial knee joint, bilateral; E78.5 Hyperlipidemia, unspecified; I25.2 Old myocardial infarction; B95.62 Methicillin resistant Staphylococcus aureus infection as the cause of diseases classified elsewhere; D63.1 Anemia in chronic kidney disease; Z88.5 Allergy status to narcotic agent; R63.4 Abnormal weight loss; I48.91 Unspecified atrial fibrillation
CPT/HCPCS: 36600; 71010; 76937; 80048; 80069; 82805; 83605; 83735; 83880; 84484; 85025; 85610; 85730; 86403; 87040; 87070; 87147; 87186; 87205; 88305; 90935; 93005; 94640; 94664; G0257; G0378; G8987-GP; G8988-GP; J0456; J0690; J0696; J1580; J1644; J1885; J3370; J7030; J7040; J7050

== ENCOUNTER 2016-03-01 12:20 | Emergency (ER) | payer MEDICARE, BC ==
[~2016-03-01] VITALS: Ht 175.3 cm; Wt 67.0 kg
[~2016-03-01 12:20] MED LIST changes: -AMLO1TAB99 PO; +APIX2.5T PO; -ASPI81TA11 PO; +Aspirin Chew CHEW; +CARV12.5 PO; -CARV6.25 PO; -CYAN25003 SL; +DOCU1CAP39 PO; -LEVO50TA4 PO; +MEGE40SU PO; +OXYC1TAB35 PO; -SEVEL800 PO; +TRAV0.00 EACH EYE
[2016-03-01 12:27] VITALS: BP 149/65; PULSE 53; RESP 16; TEMP 98.8; O2SAT 98
[2016-03-01 12:29] VITALS: BP 149/65; PULSE 53; RESP 16; TEMP 98.8; O2SAT 98
[2016-03-01] MEDS ORDERED: ASPI1TAB69 PO (12:42)
[2016-03-01] MEDS ORDERED: AMLO1TAB99 PO (13:15)
[2016-03-01] MEDS ORDERED: CYAN25003 SL (13:15)
[2016-03-01] MEDS ORDERED: LEVO50TA4 PO (13:15)
[2016-03-01] MEDS ORDERED: MULT-135 PO (13:15)
[2016-03-01] MEDS ORDERED: CARV6.25 PO (13:15)
[2016-03-01] MEDS ORDERED: SEVEL800 PO (13:15)
[2016-03-01] MEDS ORDERED: COQ-100C2 PO (13:15)
--- NOTE | 2016-03-01 13:19 | PD ---
HPI Chief Complaint: Fall Time Seen by Provider: 13:15 Travel History International Travel<30 days: No Contact w/Intl Traveler<30days: No Traveled to known affect area: No History of Present Illness HPI 85 yo female that presents to the ED for evaluation of fall today. She was at her routine dialysis today, she finished her dialysis and going to weight herself on the scale she accidentally lost her balance and fell. She hit her head, but did not lose consciousness. No numbness, tingling, weakness. No hip, or leg pain. No left arm pain. Main concern is pain to the right wrist and hand after the fall. Pain is 10/10 in this area. Headache 5/10. Denies any other injury. Brought here via [facility] Past Medical History Anemia: Yes Arthritis: Yes Asthma: No Blood Disorders: No Anxiety: Yes Depression: Yes Heart Rhythm Problems: Yes Cancer: No Cardiac Catheterization: Yes (X3) Cardiovascular Problems: Yes (3 STENTS) High Cholesterol: No Chest Pain: Yes Congestive Heart Failure: No COPD: No Coronary Artery Disease: Yes Diabetes: No Endocrine: Yes Gastrointestinal Disorders: Yes (HEART BURN) GERD: Yes Genitourinary: Yes (ESRD - ON DIALYSIS) Hypertension: Yes Immune Disorder: No Implanted Vascular Access Dvce: Yes Musculoskeletal: Yes (RIGHT HIP) Neurologic: No Psychiatric: Yes Reproductive: No Respiratory: Yes Integumentary: Yes (CELLULITIS L ARM) Immunizations Current: Yes Pneumonia: Yes Renal Failure: Yes Sleep Apnea: Yes (HAD CPAP IN PAST) Thyroid Disease: Yes ?: Not Past Surgical History Abdominal Surgery: Yes Appendectomy: Yes Arteriovenous Shunt: Yes (RUE) Body Medical Devices: 3 CARDIAC STENTS, KIDNEY STENT, HX R CHEST DIALYSIS CATH Coronary Stent: Yes (X3) Eye Surgery: Yes (L CATARACT REMOVED) Genitourinary Surgery: Yes (STONES REMOVED, L KIDNEY STENT) Gynecologic Surgery: Yes Hysterectomy: Yes Joint Replacement: Yes (BILAT TOTAL HIP, BILAT TOTAL KNEE) Oral Surgery: Yes Tonsillectomy: Yes Other Surgery: Yes Social History Alcohol Use: Yes (RARE) Tobacco Use: No Substance Use: No Allergies-Medications (Allergen,Severity, Reaction): Coded Allergies: Dilaudid (Verified Allergy, Severe, ANAPHYLACTIC, 02/06/16) Morphine (Verified Allergy, Severe, ANAPHYLACTIC, 02/06/16) *MDRO Multi-Drug Resistant Organism (Verified Adverse Reaction, Unknown, ) 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 Reported Meds & Prescriptions Reported Meds & Active Scripts Active Oxycodone-Acetaminophen 7.5-325 mg Tab 2 Tab PO Q4H PRN Megestrol Liq (Megestrol Acetate) 40 Mg/Ml Susp 800 Mg PO DAILY Lipitor (Atorvastatin Calcium) 20 Mg Tab 20 Mg PO HS Reported Cphtrftrjw-Kqhouaqah-Bevytyrfrbhpvtkrfxx 10-320-25 Mg Tab 1 Tab PO DAILY Vitamin B-12 (Cyanocobalamin) 2,500 Mcg Subl 2,500 Mcg SL DAILY Renvela (Sevelamer Carbonate) 800 Mg Tab 800 Mg PO TID Levothyroxine (Levothyroxine Sodium) 50 Mcg Tab 50 Mcg PO DAILY Coq-10 (Coenzyme Q10 (Ubidecarenone)) 100 Mg Cap 100 Mg PO DAILY Coreg (Carvedilol) 6.25 Mg Tab 6.25 Mg PO BID Multi Vitamin (Multiple Vitamin) 1 Tab Tab 1 Tab PO DAILY Aspirin 81 Mg Tabdr 81 Mg PO DAILY Travatan Z Opth Drops (Travoprost) 0.004 % Soln 1 Drop EACH EYE HS PRN Viibryd (Vilazodone) 40 Mg Tab 40 Mg PO DAILY Review of Systems Except as stated in HPI: all other systems reviewed are Neg Physical Exam Narrative GENERAL: SKIN: Warm and dry. HEAD: Atraumatic. Normocephalic. EYES: Pupils equal and round. No scleral icterus. No injection or drainage. ENT: No nasal bleeding or discharge. Mucous membranes pink and moist. Tongue is midline, no uvula deviation NECK: Trachea midline. No JVD. CARDIOVASCULAR: Regular rate and rhythm. No murmurs, S3, S4. RESPIRATORY: No accessory muscle use. Clear to auscultation. Breath sounds equal bilaterally. GASTROINTESTINAL: Abdomen soft, non-tender, nondistended. Hepatic and splenic margins not palpable. MUSCULOSKELETAL: Extremities without clubbing, cyanosis, or edema. No obvious deformities. Full ROm of the left upper extremity. She has deformity noted to the distal wrist on the right arm with pain. Full ROM of the fingers and hand. 2 + pulses bilaterally. No elbow, shoulder pain. No cervical, thoracic, lumbar spine tenderness. Neurovacularly intact. Full ROM of the lower extremities. NEUROLOGICAL: Awake and alert. No obvious cranial nerve deficits. Motor grossly within normal limits. Five out of 5 muscle strength in the arms and legs. Normal speech. PSYCHIATRIC: Appropriate mood and affect; insight and judgment normal. Data Data Last Documented VS Vital Signs Date Time Temp Pulse Resp B/P Pulse Ox O2 Delivery O2 Flow Rate FiO2 03/01/16 12:29 98.8 53 16 149/65 98 Room Air Orders Hand, Complete ([id number]) (03/01/16 12:37) Wrist, Complete ([id number]) (03/01/16 12:37) Ice/Cold Pack (03/01/16 12:37) Ct Brain W/O Iv Contrast(Rout) (03/01/16 12:37) Forearm (2vws) (03/01/16 ) Acetamin-Hydrocod 325-5 Mg ([place] 5-325 (03/01/16 14:00) Splint Or Brace Apply/Monitor (03/01/16 13:55) [facility] Medical Decision Making Medical Screen Exam Complete: Yes Emergency Medical Condition: Yes Medical Record Reviewed: Yes Interpretation(s) Last Impressions Wrist X-Ray 03/01/16 1237 Signed Impressions: Service Date/Time: Tuesday, March 01, 2016 13:18 - CONCLUSION: No acute bony injury Brian Beard MD Hand X-Ray 03/01/16 1237 Signed Impressions: Service Date/Time: Tuesday, March 01, 2016 13:21 - CONCLUSION: No acute bony injury Brian Beard MD Radius/Ulna X-Ray 03/01/16 0000 Signed Impressions: Service Date/Time: Tuesday, March 01, 2016 13:13 - CONCLUSION: No acute bony injury Brian Beard MD CT head negative Differential Diagnosis fracture vs fall vs contusion vs sprain Narrative Course 85 yo female here for fall. Xrays ordered after she agreed to proceed. xrays showed no sign of acute bony injury. Patient was reassured. CT of the head was negative. Patient did not have a syncopal episode. Patient finished her dialysis. At this time I recommend brace as well as pain medication. Patient was given Lortab for pain by mouth. Patient was given prescription for this. Told to follow up with PCP or orthopedic doctor. See ED worsening symptoms. Diagnosis Primary Impression: Wrist contusion Qualified Code: S60.211A - Contusion of right wrist, initial encounter Patient Instructions: Narcotic given in the ED, General Instructions Additional Instructions: Take medications as prescribed. Only if absolutely needed. Stick the Tylenol if possible. Do not take this medication in combination with Xanax or any other narcotic medication. Follow-up with PCP. See ED for any worsening symptoms. Do not drink or drive while taking pain medication. Apply ice or heat as needed for pain Med/Other Pt SpecificInfo: Prescription(s) given Scripts Hydrocodone-Acetaminophen (Lortab)5-325 Mg Tab1 Tab PO Q6H PRN (PAIN) #12 TAB Prov:Juarez Hunter MD 03/01/16 Disposition: 01 DISCHARGE HOME Condition: Stable Yared Flynn Mar 01, 2016 13:19
--- NOTE | 2016-03-01 13:45 | RADRPT ---
EXAM DATE/TIME: 03/01/2016 13:13 [facility] COMPARISON: No previous studies available for comparison. INDICATIONS : Fell and hit right hand/wrist. MEDICAL HISTORY : Hypertension. Gastroesophageal reflux disease. SURGICAL HISTORY : Tonsillectomy. ENCOUNTER: Initial ACUITY: 1 day PAIN SCORE: 7/10 LOCATION: Right wrist FINDINGS: Two view examination of the right forearm demonstrates no evidence of fracture or dislocation. Bony mineralization is osteopenic. The soft tissue structures are intact. CONCLUSION: No acute bony injury Brian Beard MD on March 01, 2016 at 13:37 Board Certified Radiologist. This report was verified electronically.
--- NOTE | 2016-03-01 13:46 | RADRPT ---
EXAM DATE/TIME: 03/01/2016 13:18 [facility] COMPARISON: No previous studies available for comparison. INDICATIONS : Fell and hit right hand/wrist. MEDICAL HISTORY : Hypertension. Gastroesophageal reflux disease. SURGICAL HISTORY : Tonsillectomy. ENCOUNTER: Initial ACUITY: 1 day PAIN SCORE: 7/10 LOCATION: Right wrist FINDINGS: The bony structures are osteopenic. There are degenerative changes osteoarthritic of the greater and lesser multangular navicular articulations as well as calcifications in the tri-fibrocartilage And there is no acute bony injury or dislocation. Small exostosis projection off the external radial head is appreciated. CONCLUSION: No acute bony injury Brian Beard MD on March 01, 2016 at 13:44 Board Certified Radiologist. This report was verified electronically.
--- NOTE | 2016-03-01 13:47 | RADRPT ---
EXAM DATE/TIME: 03/01/2016 13:21 [facility] COMPARISON: No previous studies available for comparison. INDICATIONS : Fell and hit right hand/wrist. MEDICAL HISTORY : Hypertension. Gastroesophageal reflux disease. CAD. SURGICAL HISTORY : Tonsillectomy. 3 Stents placed. ENCOUNTER: Initial ACUITY: 1 day PAIN SCORE: 7/10 LOCATION: Right wrist FINDINGS: Three view examination of the right hand demonstrates no soft tissue swelling, dislocation, or fractu re. The carpal bones appear intact. The interphalangeal and metacarpophalangeal joints are intact. Bony mineralization is osteoporotic. Degenerative osteoarthritic changes noted at the multangular n avicular articulations. CONCLUSION: No acute bony injury Brian Beard MD on March 01, 2016 at 13:45 Board Certified Radiologist. This report was verified electronically.
[2016-03-01] MEDS ORDERED: ACETAMINOPHEN/HYDROcodone 325 MG/5 MG TAB PO ONE (14:00)
--- NOTE | 2016-03-01 14:00 | RADRPT ---
EXAM DATE/TIME: 03/01/2016 13:40 [facility] COMPARISON: No previous studies available for comparison. INDICATIONS : Trauma, fall. Hit right side of head. RADIATION DOSE: 56.35 CTDIvol (mGy) MEDICAL HISTORY : Hypertension. SURGICAL HISTORY : None. ENCOUNTER: Initial ACUITY: 1 day PAIN SCALE: 3/10 LOCATION: cranial TECHNIQUE: Multiple contiguous axial images were obtained of the head. Using automated exposure control and adj ustment of the mA and/or kV according to patient size, radiation dose was kept as low as reasonably a chievable to obtain optimal diagnostic quality images. FINDINGS: The calvarium appears intact with clear sinuses and normal intraorbital contents.Calcifications of th e internal carotids and siphons and vertebral is at the foramen. Midline structures and major anatomi c landmarks are correctly situated with prominent sulci and ventricles consistent with the patient's age and diffuse microvascular deep white matter ischemic demyelinization. There is no acute intracran ial hemorrhage, cerebral defect, mass, or infarct CONCLUSION: No acute intracranial abnormality. Brian Beard MD on March 01, 2016 at 13:57 Board Certified Radiologist. This report was verified electronically.
[2016-03-01] MEDS ORDERED: HYDR-3533 PO (14:03)
[2016-06-08] MEDS ORDERED: ULTR50TA5 PO (18:36)
[2016-06-08] MEDS ORDERED: ALPR.25 PO ×2 (18:36)
[2016-06-08] MEDS ORDERED: CEPH-460 PO (22:57)
== END 2016-03-01 15:07 | disposition home or self-care (01) ==
LOC: NEDAMB 12:20
DX: S60.211A Contusion of right wrist, initial encounter (principal); D64.9 Anemia, unspecified; I25.10 Atherosclerotic heart disease of native coronary artery without angina pectoris; I12.0 Hypertensive chronic kidney disease with stage 5 chronic kidney disease or end stage renal disease; W18.31XA Fall on same level due to stepping on an object, initial encounter; Y93.89 Activity, other specified; Y92.531 Health care provider office as the place of occurrence of the external cause
CPT/HCPCS: 70450; 73090; 73110; 73130; 99284; L3908

== ENCOUNTER 2016-03-22 06:09 | Observation (INO) | payer MEDICARE, BC ==
[~2016-03-22] VITALS: Ht 172.7 cm; Wt 70.0 kg
[2016-03-22] VITALS (11 sets, daily range): BP systolic 141–176; BP diastolic 67–87; PULSE 67–80; RESP 16–20; TEMP 98.5–98.8; O2SAT 95–99
[~2016-03-22 06:09] MED LIST changes: -ALPR.25 PO; +AMLO1TAB99 PO; -APIX2.5T PO; +ASPI1TAB69 PO; -Aspirin Chew CHEW; -CARV12.5 PO; +CARV6.25 PO; +COQ-100C2 PO; +CYAN25003 SL; -DOCU1CAP39 PO; +HYDR-3533 PO; +LEVO50TA4 PO; +MULT-135 PO; -MULT1TAB84 PO; +SEVEL800 PO
[2016-03-22] MEDS ORDERED: DOCU100C PO (06:26)
[2016-03-22] MEDS ORDERED: APIX2.5T PO (06:26)
[2016-03-22] MEDS ORDERED: ACET1CAP18 PO (06:27)
[2016-03-22] MEDS ORDERED: ALPR0.25 PO (06:27)
[2016-03-22] MEDS ORDERED: LEVO50TA4 PO (06:29)
[2016-03-22] MEDS ORDERED: ASPIRIN 325 MG TAB PO ONE (06:45)
[2016-03-22] MEDS ORDERED: SODIUM CHLORIDE 0.9% FLUSH 5 ML FLUSH IVF PRN ×2 (06:45→11:00)
[2016-03-22] MEDS: NITROGLYCERIN 0.4 MG SL 25 TABS/BTL SL SCH ×3 (06:47→07:49)
[2016-03-22 07:00] LABS: BASOPHIL # 0.1 TH/MM3 (0-0.2); BASOPHIL % 1.5 % (0.0-2.0); EOSINOPHIL # 0.2 TH/MM3 (0-0.4); EOSINOPHIL % 3.7 % (0.0-4.0); HEMATOCRIT 23.9 % (35.0-46.0); HEMO FLAGS DIFF FINAL; LYMPHOCYTE # 1.5 TH/MM3 (1.0-4.8); MEAN CELL VOLUME 98.7 FL (80.0-100.0); MEAN CORPUSCULAR HEMOGLOBIN 33.5 PG (27.0-34.0); MEAN CORPUSCULAR HGB CONC 33.9 % (32.0-36.0); MONO % 8.1 % (0.0-8.0); NEUT % 62.7 % (16.0-70.0); PLATELET COUNT 243 TH/MM3 (150-450); RED BLOOD COUNT 2.42 MIL/MM3 (4.00-5.30); RED CELL DISTRIBUTION WIDTH 15.3 % (11.6-17.2); WHITE BLOOD COUNT 6.4 TH/MM3 (4.0-11.0)
--- NOTE | 2016-03-22 07:06 | RADRPT ---
EXAM DATE/TIME: 03/22/2016 06:51 [facility] COMPARISON: CHEST SINGLE AP, February 06, 2016, 8:57. INDICATIONS : Chest pain and weakness. MEDICAL HISTORY : Hypertension. Gastroesophageal reflux disease. CAD SURGICAL HISTORY : Tonsillectomy. Coronary artery stent. ENCOUNTER: Initial ACUITY: 1 day PAIN SCORE: 6/10 LOCATION: Bilateral chest FINDINGS: There has been improvement in the bibasilar infiltrates compared to the prior study. No definite new infiltrates are seen. There are no pleural effusions or pulmonary edema. The heart size is stable. Th e bony structures are stable. CONCLUSION: The previously noted bibasilar infiltrates have improved. No new infiltrates are demonstrated. Justin House MD on March 22, 2016 at 7:02 Board Certified Radiologist. This report was verified electronically.
--- NOTE | 2016-03-22 07:08 | PD ---
HPI Chief Complaint: Cardiac Complaint Time Seen by Provider: 06:37 Travel History International Travel<30 days: No Contact w/Intl Traveler<30days: No Traveled to known affect area: No History of Present Illness HPI This 85 years old. She woke up to use the bathroom and chest pain. At its worst it was 10 over 10. She received 1 nitroglycerin and 162 mg aspirin. She reports pain is about a 4/10 now. It's constant though gradually improving. She's had similar pain in the past. She's had no cough or fever. Follow-up with Dr. Deja Salazar for end-stage renal disease and is dialyzed Sunday with strict compliance. PFSH Past Medical History Anemia: Yes Arthritis: Yes Asthma: No Blood Disorders: No Anxiety: Yes Depression: Yes Heart Rhythm Problems: Yes Cancer: No Cardiac Catheterization: Yes (X3) Cardiovascular Problems: Yes (3 STENTS) High Cholesterol: No Chest Pain: Yes Congestive Heart Failure: No COPD: No Coronary Artery Disease: Yes Diabetes: No Endocrine: Yes Gastrointestinal Disorders: Yes (HEART BURN) GERD: Yes Genitourinary: Yes (ESRD - ON DIALYSIS) Hypertension: Yes Immune Disorder: No Implanted Vascular Access Dvce: Yes Musculoskeletal: Yes (RIGHT HIP) Neurologic: No Psychiatric: Yes Reproductive: No Respiratory: Yes Integumentary: Yes (CELLULITIS L ARM) Immunizations Current: Yes Pneumonia: Yes Renal Failure: Yes Sleep Apnea: Yes (HAD CPAP IN PAST) Thyroid Disease: Yes : 4 Para: 0 Past Surgical History Abdominal Surgery: Yes Appendectomy: Yes Arteriovenous Shunt: Yes (RUE) Body Medical Devices: 3 CARDIAC STENTS, KIDNEY STENT, HX R CHEST DIALYSIS CATH Coronary Stent: Yes (X3) Eye Surgery: Yes (L CATARACT REMOVED) Genitourinary Surgery: Yes (STONES REMOVED, L KIDNEY STENT) Gynecologic Surgery: Yes Hysterectomy: Yes Joint Replacement: Yes (BILAT TOTAL HIP, BILAT TOTAL KNEE) Oral Surgery: Yes Tonsillectomy: Yes Other Surgery: Yes Social History Alcohol Use: Yes (RARE) Tobacco Use: No Substance Use: No Allergies-Medications (Allergen,Severity, Reaction): Coded Allergies: Dilaudid (Verified Allergy, Severe, ANAPHYLACTIC, 03/22/16) Morphine (Verified Allergy, Severe, ANAPHYLACTIC, 03/22/16) *MDRO Multi-Drug Resistant Organism (Verified Adverse Reaction, Unknown, ) 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 Reported Meds & Prescriptions Reported Meds & Active Scripts Active Megestrol Liq (Megestrol Acetate) 40 Mg/Ml Susp 800 Mg PO DAILY Lipitor (Atorvastatin Calcium) 20 Mg Tab 20 Mg PO HS Reported Levothyroxine (Levothyroxine Sodium) 50 Mcg Tab 50 Mcg PO DAILY Tylenol (Acetaminophen) 325 Mg Cap 325 Mg PO Q6H PRN Alprazolam 0.25 Mg Tab 0.25 Mg PO Q4H PRN Docusate Sodium 100 Mg Cap 100 Mg PO BID Eliquis (Apixaban) 2.5 Mg Tab 2.5 Mg PO BID Coreg (Carvedilol) 6.25 Mg Tab 6.25 Mg PO BID Multi Vitamin (Multiple Vitamin) 1 Tab Tab 1 Tab PO DAILY Aspirin 81 Mg Tabdr 81 Mg PO DAILY Travatan Z Opth Drops (Travoprost) 0.004 % Soln 1 Drop EACH EYE HS PRN Viibryd (Vilazodone) 40 Mg Tab 40 Mg PO DAILY Review of Systems Except as stated in HPI: all other systems reviewed are Neg Physical Exam Narrative GENERAL: 85 yo F, WNWD SKIN: Warm and dry. HEAD: Atraumatic. Normocephalic. EYES: Pupils equal and round. No scleral icterus. No injection or drainage. ENT: No nasal bleeding or discharge. Mucous membranes pink and moist. NECK: Trachea midline. No JVD. CARDIOVASCULAR: Regular rate and rhythm. No murmur appreciated. RESPIRATORY: No accessory muscle use. Clear to auscultation. Breath sounds equal bilaterally. GASTROINTESTINAL: Abdomen soft, non-tender, nondistended. Hepatic and splenic margins not palpable. MUSCULOSKELETAL: No obvious deformities. No clubbing. No cyanosis. No edema. NEUROLOGICAL: Awake and alert. No obvious cranial nerve deficits. Motor grossly within normal limits. Normal speech. PSYCHIATRIC: Appropriate mood and affect; insight and judgment normal. Data Data Last Documented VS Vital Signs Date Time Temp Pulse Resp B/P Pulse Ox O2 Delivery O2 Flow Rate FiO2 03/22/16 07:18 68 18 159/76 98 Nasal Cannula 2 03/22/16 06:11 98.5 VS noted Orders Electrocardiogram (03/22/16 06:38) Ckmb (Isoenzyme) Profile (03/22/16 06:38) Complete Blood Count With Diff (03/22/16 06:38) Comprehensive Metabolic Panel (03/22/16 06:38) Magnesium (Mg) (03/22/16 06:38) Prothrombin Time / Inr (Pt) (03/22/16 06:38) Act Partial Throm Time (Ptt) (03/22/16 06:38) Troponin I (03/22/16 06:38) Lipase (03/22/16 06:38) Chest, Single Ap (03/22/16 06:38) Ecg Monitoring (03/22/16 06:38) Iv Access Insert/Monitor (03/22/16 06:38) Oximetry (03/22/16 06:38) Oxygen Administration (03/22/16 06:38) Aspirin (Aspirin) (03/22/16 06:45) Sodium Chloride 0.9% Flush (Ns Flush) (03/22/16 06:45) Nitroglycerin Sl (Nitrostat Sl) (03/22/16 06:45) Labs Laboratory Tests Test 03/22/16 03/22/16 06:25 06:35 White Blood Count 6.4 TH/MM3 Red Blood Count 2.42 MIL/MM3 Hemoglobin 8.1 GM/DL Hematocrit 23.9 % Mean Corpuscular Volume 98.7 FL Mean Corpuscular Hemoglobin 33.5 PG Mean Corpuscular Hemoglobin 33.9 % Concent Red Cell Distribution Width 15.3 % Platelet Count 243 TH/MM3 Mean Platelet Volume 8.1 FL Neutrophils (%) (Auto) 62.7 % Lymphocytes (%) (Auto) 24.0 % Monocytes (%) (Auto) 8.1 % Eosinophils (%) (Auto) 3.7 % Basophils (%) (Auto) 1.5 % Neutrophils # (Auto) 4.0 TH/MM3 Lymphocytes # (Auto) 1.5 TH/MM3 Monocytes # (Auto) 0.5 TH/MM3 Eosinophils # (Auto) 0.2 TH/MM3 Basophils # (Auto) 0.1 TH/MM3 CBC Comment DIFF FINAL Differential Comment Prothrombin Time 11.9 SEC Prothromb Time International 1.1 RATIO Ratio Activated Partial 27.8 SEC Thromboplast Time Sodium Level 136 MEQ/L Potassium Level 5.5 MEQ/L Chloride Level 103 MEQ/L Carbon Dioxide Level 23.8 MEQ/L Anion Gap 9 MEQ/L Blood Urea Nitrogen 52 MG/DL Creatinine 7.16 MG/DL Estimat Glomerular Filtration 7 ML/MIN Rate Random Glucose 86 MG/DL Calcium Level 8.8 MG/DL Magnesium Level 2.7 MG/DL Total Bilirubin 0.4 MG/DL Aspartate Amino Transf 13 U/L (AST/SGOT) Alanine Aminotransferase 17 U/L (ALT/SGPT) Alkaline Phosphatase 89 U/L Total Creatine Kinase 59 U/L Troponin I 0.08 NG/ML Total Protein 6.6 GM/DL Albumin 3.1 GM/DL Lipase 312 U/L [facility] Medical Decision Making Medical Screen Exam Complete: Yes Emergency Medical Condition: Yes Medical Record Reviewed: Yes Differential Diagnosis NSTEMI, unstable angina, coronary vasospasm, PE, PTX, aortic dissection, pericarditis, myocarditis, endocarditis, PNA, esophageal disease, aneurysm, musculoskeletal etiologies, anxiety, cocaine/sympathomimetic abuse Narrative Course Work up pending at time of dictation. Oncoming provider to dispositin pending work up results. Yehuda Stack MD Mar 22, 2016 07:08
[2016-03-22 07:10] LABS: APTT (PATIENT) 27.8 SEC (24.3-30.1); INTERNATIONAL NORMALIZED RATIO 1.1 RATIO; PROTHROMBIN TIME - PATIENT 11.9 SEC (9.8-11.6)
[2016-03-22 07:18] LABS: ALT (GPT) 17 U/L (10-53); ANION GAP 9 MEQ/L (5-15); AST (GOT) 13 U/L (15-37); BICARBONATE 23.8 MEQ/L (21.0-32.0); BLOOD UREA NITROGEN 52 MG/DL (7-18); CHLORIDE 103 MEQ/L (98-107); GLOMERULAR FILTRATION RATE 7 ML/MIN (>89); MAGNESIUM 2.7 MG/DL (1.5-2.5); POTASSIUM 5.5 MEQ/L (3.5-5.1); SODIUM (NA) 136 MEQ/L (136-145)
[2016-03-22 07:22] LABS: ALKALINE PHOSPHATASE 89 U/L (45-117); TOTAL BILIRUBIN ADULT 0.4 MG/DL (0.2-1.0)
[2016-03-22 07:27] LABS: CREATINE KINASE 59 U/L (26-192)
--- NOTE | 2016-03-22 07:56 | PD ---
Physical Exam Date Seen by Provider: Mar 22, 2016 Time Seen by Provider: 07:00 Narrative Patient signed out to me by Dr. Stack at 7 AM, please see previous notes for further information. Here with chest pains. No acute EKG changes. She is due for dialysis today. Laboratory Tests Test 03/22/16 03/22/16 06:25 06:35 Red Blood Count 2.42 MIL/MM3 (4.00-5.30) Hemoglobin 8.1 GM/DL (11.6-15.3) Hematocrit 23.9 % (35.0-46.0) Monocytes (%) (Auto) 8.1 % (0.0-8.0) Prothrombin Time 11.9 SEC (9.8-11.6) Potassium Level 5.5 MEQ/L (3.5-5.1) Blood Urea Nitrogen 52 MG/DL (7-18) Creatinine 7.16 MG/DL (0.50-1.00) Estimat Glomerular Filtration 7 ML/MIN (>89) Rate Magnesium Level 2.7 MG/DL (1.5-2.5) Aspartate Amino Transf 13 U/L (15-37) (AST/SGOT) Troponin I 0.08 NG/ML (0.02-0.05) Albumin 3.1 GM/DL (3.4-5.0) Last 24 hours Impressions Chest X-Ray 03/22/16 0638 Signed Impressions: Service Date/Time: Tuesday, March 22, 2016 06:51 - CONCLUSION: The previously noted bibasilar infiltrates have improved. No new infiltrates are demonstrated. Justin House MD Cardiac enzymes show an elevated troponin. Patient's BUN/creatinine is quite elevated as well and I suspect that this may be the reason. However, at this point, my plan would be to admit her for further evaluation and treatment. Case was discussed with Dr. Lara for admission. Data Data Last Documented VS Vital Signs Date Time Temp Pulse Resp B/P Pulse Ox O2 Delivery O2 Flow Rate FiO2 03/22/16 07:18 68 18 159/76 98 Nasal Cannula 2 03/22/16 06:11 98.5 Orders Electrocardiogram (03/22/16 06:38) Ckmb (Isoenzyme) Profile (03/22/16 06:38) Complete Blood Count With Diff (03/22/16 06:38) Comprehensive Metabolic Panel (03/22/16 06:38) Magnesium (Mg) (03/22/16 06:38) Prothrombin Time / Inr (Pt) (03/22/16 06:38) Act Partial Throm Time (Ptt) (03/22/16 06:38) Troponin I (03/22/16 06:38) Lipase (03/22/16 06:38) Chest, Single Ap (03/22/16 06:38) Ecg Monitoring (03/22/16 06:38) Iv Access Insert/Monitor (03/22/16 06:38) Oximetry (03/22/16 06:38) Oxygen Administration (03/22/16 06:38) Aspirin (Aspirin) (03/22/16 06:45) Sodium Chloride 0.9% Flush (Ns Flush) (03/22/16 06:45) Nitroglycerin Sl (Nitrostat Sl) (03/22/16 06:45) Labs Laboratory Tests Test 03/22/16 03/22/16 06:25 06:35 White Blood Count 6.4 TH/MM3 Red Blood Count 2.42 MIL/MM3 Hemoglobin 8.1 GM/DL Hematocrit 23.9 % Mean Corpuscular Volume 98.7 FL Mean Corpuscular Hemoglobin 33.5 PG Mean Corpuscular Hemoglobin 33.9 % Concent Red Cell Distribution Width 15.3 % Platelet Count 243 TH/MM3 Mean Platelet Volume 8.1 FL Neutrophils (%) (Auto) 62.7 % Lymphocytes (%) (Auto) 24.0 % Monocytes (%) (Auto) 8.1 % Eosinophils (%) (Auto) 3.7 % Basophils (%) (Auto) 1.5 % Neutrophils # (Auto) 4.0 TH/MM3 Lymphocytes # (Auto) 1.5 TH/MM3 Monocytes # (Auto) 0.5 TH/MM3 Eosinophils # (Auto) 0.2 TH/MM3 Basophils # (Auto) 0.1 TH/MM3 CBC Comment DIFF FINAL Differential Comment Prothrombin Time 11.9 SEC Prothromb Time International 1.1 RATIO Ratio Activated Partial 27.8 SEC Thromboplast Time Sodium Level 136 MEQ/L Potassium Level 5.5 MEQ/L Chloride Level 103 MEQ/L Carbon Dioxide Level 23.8 MEQ/L Anion Gap 9 MEQ/L Blood Urea Nitrogen 52 MG/DL Creatinine 7.16 MG/DL Estimat Glomerular Filtration 7 ML/MIN Rate Random Glucose 86 MG/DL Calcium Level 8.8 MG/DL Magnesium Level 2.7 MG/DL Total Bilirubin 0.4 MG/DL Aspartate Amino Transf 13 U/L (AST/SGOT) Alanine Aminotransferase 17 U/L (ALT/SGPT) Alkaline Phosphatase 89 U/L Total Creatine Kinase 59 U/L Troponin I 0.08 NG/ML Total Protein 6.6 GM/DL Albumin 3.1 GM/DL Lipase 312 U/L [facility] Medical Record Reviewed: Yes Supervised Visit with ABNER: No Diagnosis Primary Impression: Chest pain Admitting Information Admitting Physician Requests: Admit Kirstin Puri MD Mar 22, 2016 07:56
[2016-03-22] MEDS ORDERED: NITROGLYCERIN 0.4 MG SL 25 TABS/BTL SL PRN ×2 (08:45→11:00)
[2016-03-22] MEDS ORDERED: ENOXAPARIN SODIUM 100 MG/ML SYRINGE SQ SCH (08:45)
[2016-03-22] MEDS ORDERED: SODIUM CHLORIDE 0.9% FLUSH 5 ML FLUSH IV PRN (08:45)
[2016-03-22] MEDS ORDERED: ALPRAZolam 0.25 MG TAB PO PRN ×2 (08:45)
[2016-03-22] MEDS ORDERED: ACETAMINOPHEN 325 MG TAB PO PRN ×2 (08:45→11:00)
[2016-03-22] MEDS ORDERED: VILAZODONE 40 MG PO SCH (09:00)
[2016-03-22] MEDS: SODIUM CHLORIDE 0.9% FLUSH 5 ML FLUSH IV SCH ×2 (09:30→21:35)
[2016-03-22] MEDS: NITROGLYCERIN 2% OINT 1 GM PACKET TOP SCH ×3 (09:30→19:55)
[2016-03-22] MEDS: ASPIRIN 81 MG CHEW TAB PO SCH (09:30)
[2016-03-22] MEDS: MEGESTROL ACETATE SUSP 400 MG/10 ML CUP PO SCH ×2 (09:31→11:15)
[2016-03-22] MEDS: CARVEDILOL 6.25 MG TAB PO SCH ×2 (09:31→21:36)
[2016-03-22] MEDS: MULTIVITAMIN TAB PO SCH (09:52)
[2016-03-22] MEDS: DOCUSATE SODIUM 100 MG CAP PO SCH ×2 (10:27→21:35)
[2016-03-22] MEDS: LEVOTHYROXINE SODIUM 50 MCG TAB PO SCH (10:27)
[2016-03-22] MEDS: APIXABAN 2.5 MG TABLET PO SCH ×2 (10:28→21:36)
[2016-03-22] MEDS ORDERED: SODIUM CHLOR 0.9% 1000 ML INJ 1,000 ML IV PRN ×3 (10:46)
[2016-03-22] MEDS ORDERED: ALBUMIN HUMAN 25% 25 GM/100 ML BAGP IV PRN (11:00)
[2016-03-22] MEDS ORDERED: HEPARIN SODIUM - IV 10,000 UNITS/10 ML VIAL IVF PRN (11:00)
[2016-03-22] MEDS ORDERED: diphenhydrAMINE HCL 25 MG CAP PO PRN (11:00)
[2016-03-22] MEDS ORDERED: GENTAMICIN SULFATE (DIALYSIS USE ONLY) 20 MG/2 ML VIAL IV PRN (11:00)
[2016-03-22] MEDS ORDERED: cloNIDine HCL 0.1 MG TAB PO PRN (11:00)
[2016-03-22] MEDS ORDERED: ONDANSETRON HCL 4 MG/2 ML VIAL IV PRN (11:00)
[2016-03-22] MEDS ORDERED: GELATIN 12 MM/7 MM FOAM TOP PRN (11:00)
[2016-03-22] MEDS ORDERED: HEPARIN SODIUM - IV 10,000 UNITS/10 ML VIAL PRN (11:00)
[2016-03-22] MEDS ORDERED: MANNITOL 12.5 GM/50 ML VIAL IV PRN (11:00)
--- NOTE | 2016-03-22 12:16 | MB ---
cc: YESI JACKSON M.D. DATE OF CONSULTATION 03/22/2016 REASON FOR CONSULTATION Wandy is a very pleasant 85-year-old lady with a history of moderate three-vessel coronary by cath in December of 2015, cardiomyopathy, EF 40-45%, a fib on Eliquis, on dialysis for end-stage renal failure who presents with moderate left-sided chest pain described as sharp, otherwise denies any fevers, chills, cough, bleeding, paroxysmal nocturnal dyspnea, orthopnea, syncope or dizziness. Per the ER notes, her pain was 10/10. She is currently asleep, I had to arouse her from sleep and she is lucid once I wake her up, but appears to be lethargic. PAST MEDICAL HISTORY Per history of present illness. Also has a history of: 1. Arthritis 2. Anxiety 3. Depression 4. PCI x3 5. Sleep apnea 6. Renal artery stenosis status post stent 7. Peripheral vascular disease 8. Bilateral total hip replacement 9. Bilateral total knee replacement SOCIAL HISTORY Alcohol, rarely consumes. Denies tobacco use. ALLERGIES DILAUDID, MORPHINE, MULTI-DRUG RESISTANT ORGANISM. MEDICATIONS In the hospital: 1. Atorvastatin 20 at bedtime 2. Aspirin 162 daily 3. Eliquis 2.5 b.i.d. 4. Carvedilol 6.25 b.i.d. 5. Docusate 100 b.i.d. 6. Levothyroxine 50 mcg daily 7. Megace 800 daily 8. Multivitamins daily 9. One inch nitro-paste q6 hours PHYSICAL EXAMINATION Blood pressure 158/74, pulse 67, respiratory rate 16, temperature 98.5. GENERAL: She is asleep, easily arousable, oriented x3, appears to be lethargic, otherwise in no acute distress. NECK: Supple. No JVD or bruits. CARDIOVASCULAR: S1 and S2. No murmur, rubs or gallops ABDOMEN: Soft, nontender, nondistended with positive bowel sounds. EXTREMITIES: No lower extremity edema. Chest x-ray, the previously noted bibasilar infiltrates have "improved". No new infiltrates are demonstrated. LABS White count 6.4, hemoglobin 8.1, hematocrit 23.9, platelet count 243. Sodium 136, potassium 5.5, chloride 103, bicarbonate 23.8, BUN 52, creatinine 7.16, magnesium 2.7, troponin is 0.08, INR is 1.1. EKG shows normal sinus rhythm at 79 beats per minute, left ventricular hypertrophy. FINAL DIAGNOSIS 1. Non-STEMI 2. Coronary artery disease 3. Cardiomyopathy 4. End-stage renal failure 5. Anemia DISCUSSION 1. At this point in time, I suspect the troponin elevation is nonspecific due to her end-stage renal failure, however, she does have moderate three-vessel coronary disease and anemia and so this could be partially a demand issue. I doubt that this is a primary obstructive event. Based on the second alternative, I think it is reasonable to give her a unit of blood which we can do with the next dialysis, otherwise continue with atorvastatin, aspirin, Carvedilol 6.25 twice a day. The patient is hyperkalemic on dialysis, therefore magno inhibitors and ARB's are relatively contraindicated. We will also continue nitro-paste. 2. Atrial fibrillation currently in sinus rhythm by EKG. Continue Eliquis. The patient denies any obvious bleeding MD EFRA Tejeda/YENI /11:48 AM /12:02 PM
--- NOTE | 2016-03-22 12:33 | PD.CONS ---
HPI Service Nephrology Consult Requested By Reason for Consult ESRD on HD Primary Care Physician Ashlyn Mao MD History of Present Illness This is an 85 y/o AAF pt who came to ER with chest pain. She was given 3 NTG tabs which resolved the pain. Her normal dialysis days are , however Sunday she cut her treatment short because the facility was too cold she reports. Other PMH of anemia, HTN, metabolic bone disorder, and paroxysmal A fib. On exam she is sad/tearful, denies any chest pain at present. We were consulted for dialysis management. She has been evaluated by cardiology, PRBC ordered for transfusion today. She is due today for dialysis. (Lelo Chong) Review of Systems Constitutional: COMPLAINS OF: Fatigue, Change in appetite, DENIES: Fever Respiratory: COMPLAINS OF: Shortness of breath, DENIES: Apneas Cardiovascular: COMPLAINS OF: Chest pain, Dyspnea on Exertion, DENIES: Lower Extremity Edema, Orthopnea Gastrointestinal: DENIES: Abdominal pain, Bloody stools, Constipation (Lelo Chong) Past Family Social History Allergies: Coded Allergies: Dilaudid (Verified Allergy, Severe, ANAPHYLACTIC, 03/22/16) Morphine (Verified Allergy, Severe, ANAPHYLACTIC, 03/22/16) *MDRO Multi-Drug Resistant Organism (Verified Adverse Reaction, Unknown, ) 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 Past Medical History ESRD on HD CAD s/p stents GERD HTN Anemia Arthritis Depression Metabolic Bone Disorder Past Surgical History AVF RUE Cardiac cath x 3 renal artery stent Hysterectomy Total knee, right Total knee, left x2 total hip replacement, bilaterally tonsils Reported Medications Megestrol Liq (Megestrol Acetate) 40 Mg/Ml Susp 800 Mg PO DAILY Lipitor (Atorvastatin Calcium) 20 Mg Tab 20 Mg PO HS Levothyroxine (Levothyroxine Sodium) 50 Mcg Tab 50 Mcg PO DAILY Tylenol (Acetaminophen) 325 Mg Cap 325 Mg PO Q6H PRN Alprazolam 0.25 Mg Tab 0.25 Mg PO Q4H PRN Docusate Sodium 100 Mg Cap 100 Mg PO BID Eliquis (Apixaban) 2.5 Mg Tab 2.5 Mg PO BID Coreg (Carvedilol) 6.25 Mg Tab 6.25 Mg PO BID Multi Vitamin (Multiple Vitamin) 1 Tab Tab 1 Tab PO DAILY Aspirin 81 Mg Tabdr 81 Mg PO DAILY Travatan Z Opth Drops (Travoprost) 0.004 % Soln 1 Drop EACH EYE HS PRN Viibryd (Vilazodone) 40 Mg Tab 40 Mg PO DAILY Active Ordered Medications Current Medications Medications (Trade) Dose Ordered Sig/Thierry Route Start Time Stop Time Status Last Admin (NS Flush) 2 ml BID IV 03/22/16 09:00 03/22/16 09:30 (NS Flush) 2 ml UNSCH PRN IV 03/22/16 08:45 (Aspirin Chew) 162 mg DAILY PO 03/22/16 09:00 03/22/16 09:30 (Nitroglycerin 2% Oint) 1 inch Q6HR TOP 03/22/16 08:45 03/22/16 11:57 (Nitrostat Sl) 0.4 mg Q5M PRN SL 03/22/16 08:45 (Xanax) 0.25 mg Q8H PRN PO 03/22/16 08:45 (Tylenol) 325 mg Q6H PRN PO 03/22/16 08:45 (Eliquis) 2.5 mg BID PO 03/22/16 09:00 03/22/16 10:28 (Lipitor) 20 mg HS PO 03/22/16 21:00 (Coreg) 6.25 mg BID PO 03/22/16 09:00 03/22/16 09:31 (Colace) 100 mg BID PO 03/22/16 09:00 03/22/16 10:27 (Synthroid) 50 mcg DAILY@0600 PO 03/22/16 09:00 03/22/16 10:27 (Megace Liq) 800 mg DAILY PO 03/22/16 09:00 03/22/16 11:15 (Theragran) 1 tab DAILY PO 03/22/16 09:00 03/22/16 09:52 (Xalatan 0.005% Opth Soln) 1 drop HS EACH EYE 03/22/16 21:00 Patient Own Medication PT OWN MED: Vilazod... DAILY PO 03/22/16 09:00 Hold (NS 1000 ml Inj) 1,000 ml @ 0 mls/hr Q0M PRN IV 03/22/16 10:46 Heparin Sodium (Porcine) 8000 units 8,000 units UNSCH PRN IVF 03/22/16 11:00 Sodium Chloride 1,000 ml @ 200 mls/hr Q5H PRN IV 03/22/16 10:46 (NS 1000 ml Inj) 1,000 ml @ 0 mls/hr Q0M PRN IV 03/22/16 10:46 (Mannitol Inj) 12.5 gm UNSCH PRN IV 03/22/16 11:00 (Albumin 25% Inj) 25 gm UNSCH PRN IV 03/22/16 11:00 (NS Flush) 5 ml UNSCH PRN IVF 03/22/16 11:00 (Heparin Inj) UNSCH PRN .XX 03/22/16 11:00 (Gentamicin (Dialysis) Inj) 20 mg UNSCH PRN IV 03/22/16 11:00 (Zofran Inj) 4 mg UNSCH PRN IV 03/22/16 11:00 (Tylenol) 650 mg UNSCH PRN PO 03/22/16 11:00 (Benadryl) 25 mg UNSCH PRN PO 03/22/16 11:00 (Nitrostat Sl) 0.4 mg UNSCH PRN SL 03/22/16 11:00 (Catapres) 0.1 mg UNSCH PRN PO 03/22/16 11:00 (Epogen Inj) 10,000 units UNSCH PRN IV 03/22/16 11:00 (Gelfoam 12 Mm/7 Mm Top) 1 foam UNSCH PRN TOP 03/22/16 11:00 Family History No hx of renal disorders Social History Non smoker Occasional ETOH, wine Now lives in assisted living complex Full code Functionally independent (Lelo Chong) Physical Exam Vital Signs Vital Signs Date Time Temp Pulse Resp B/P Pulse Ox O2 Delivery O2 Flow Rate FiO2 03/22/16 11:55 69 17 159/81 97 Room Air 03/22/16 10:30 67 16 158/74 95 Room Air 03/22/16 07:18 68 18 159/76 98 Nasal Cannula 2 03/22/16 06:54 72 18 171/85 97 Nasal Cannula 2 03/22/16 06:40 97 Nasal Cannula 2 03/22/16 06:40 97 Nasal Cannula 2 03/22/16 06:11 98.5 79 20 176/85 96 Physical Exam Elderly AAF lying in bed, flat affect, receiving dialysis Neuro: awake, oriented x 4 without deficit CV: S1/S2, RRR BP 150/81, not tachycardic Resp: CTAB without wheezing, decreased in bases GI: soft, NT/ND, BS x normoactive : anuric at baseline Ext: warm/dry; pulses 2+ DP, radial; RUE AVF, accessed during dialysis Laboratory Laboratory Tests Test 03/22/16 03/22/16 06:25 06:35 White Blood Count 6.4 Red Blood Count 2.42 Hemoglobin 8.1 Hematocrit 23.9 Mean Corpuscular Volume 98.7 Mean Corpuscular Hemoglobin 33.5 Mean Corpuscular Hemoglobin 33.9 Concent Red Cell Distribution Width 15.3 Platelet Count 243 Mean Platelet Volume 8.1 Neutrophils (%) (Auto) 62.7 Lymphocytes (%) (Auto) 24.0 Monocytes (%) (Auto) 8.1 Eosinophils (%) (Auto) 3.7 Basophils (%) (Auto) 1.5 Neutrophils # (Auto) 4.0 Lymphocytes # (Auto) 1.5 Monocytes # (Auto) 0.5 Eosinophils # (Auto) 0.2 Basophils # (Auto) 0.1 CBC Comment DIFF FINAL Differential Comment Prothrombin Time 11.9 Prothromb Time International 1.1 Ratio Activated Partial 27.8 Thromboplast Time Sodium Level 136 Potassium Level 5.5 Chloride Level 103 Carbon Dioxide Level 23.8 Anion Gap 9 Blood Urea Nitrogen 52 Creatinine 7.16 Estimat Glomerular Filtration 7 Rate Random Glucose 86 Calcium Level 8.8 Magnesium Level 2.7 Total Bilirubin 0.4 Aspartate Amino Transf 13 (AST/SGOT) Alanine Aminotransferase 17 (ALT/SGPT) Alkaline Phosphatase 89 Total Creatine Kinase 59 Troponin I 0.08 Total Protein 6.6 Albumin 3.1 Lipase 312 (Lelo Chong) Result Diagram: 03/22/1625 03/22/16 0635 Imaging Last 72 hours Impressions Chest X-Ray 03/22/16 0638 Signed Impressions: Service Date/Time: Tuesday, March 22, 2016 06:51 - CONCLUSION: The previously noted bibasilar infiltrates have improved. No new infiltrates are demonstrated. Justin House MD (Lelo Chong) Assessment and Plan Problem List: (1) ESRD (end stage renal disease) Plan: We will dialyze today and maintain M-W- schedule K 5.5, should improve with dialysis fluid volume status is acceptable, no IVF required high protein, low K diet; she is on Megace for appetite stimulation renal panel in am check phosphorus in am and initiate binders if needed she has AVF right arm that functions well. (2) Chest pain Plan: no current complaints, was relieved by NTG this morning cardiology has evaluated, she has hx of CAD appreciate further recommendations (3) Anemia Plan: 1 unit PRBC to be given during dialysis per cardiology epogen with dialysis repeat Hb in am (4) Hypertension Plan: no SYED or ARB due to hyperkalemia continue oral medications, titrate to effectiveness (5) Atrial fibrillation Plan: now in NSR she is on Eliquis (Lelo Chong) Assessment and Plan patient was seen and examined. Dialysis today. Blood transfusion was ordered. There is an element of depression. Obtain TSH. (Roland Miramontes MD) Lelo Chong Mar 22, 2016 12:33 Roland Miramontes MD Mar 22, 2016 21:52
[2016-03-22] MEDS: EPOETIN ALFA 10,000 UNITS/ML VIAL IV PRN (17:22)
[2016-03-22 21:33] LABS: MAGNESIUM 2.1 MG/DL (1.5-2.5)
[2016-03-22] MEDS: LATANOPROST 0.005% OPHT SOLN 2.5 ML BTL EACH EYE SCH (21:34)
[2016-03-22] MEDS: ATORVASTATIN 20 MG TAB PO SCH (21:36)
--- NOTE | 2016-03-22 22:48 | EKG ---
Date Performed: 03/22/2016 Time Performed: 06:12:51 PTAGE: 85 years EKG: Sinus rhythm POSSIBLE LEFT ATRIAL ENLARGEMENT MARKED LEFT AXIS DEVIATION NONSPECIFIC T-WAVE ABNORMALITY ABNORMAL ECG PREVIOUS TRACING : 02/06/2016 08.43 DOCTOR: Anne-Marie Bey Interpretating Date/Time 03/22/2016 22:45:39
[2016-03-23] MEDS: NITROGLYCERIN 2% OINT 1 GM PACKET TOP SCH ×5 (00:51→23:26)
[2016-03-23 06:19] VITALS: O2SAT 98
[2016-03-23] MEDS: LEVOTHYROXINE SODIUM 50 MCG TAB PO SCH (06:32)
[2016-03-23 07:21] VITALS: BP 178/96; PULSE 83; RESP 17; TEMP 98.9; O2SAT 98
[2016-03-23] MEDS: MULTIVITAMIN TAB PO SCH (08:20)
[2016-03-23] MEDS: CARVEDILOL 6.25 MG TAB PO SCH ×2 (08:20→20:38)
[2016-03-23] MEDS: ASPIRIN 81 MG CHEW TAB PO SCH (08:21)
[2016-03-23] MEDS: DOCUSATE SODIUM 100 MG CAP PO SCH ×2 (08:21→20:38)
[2016-03-23] MEDS: APIXABAN 2.5 MG TABLET PO SCH ×2 (08:21→20:38)
--- NOTE | 2016-03-23 08:22 | MH ---
cc: SOPHIABAKARI DATE OF ADMISSION: 03/22/2016 DATE OF : 1930 INTERNATIONAL TRAVEL 30 DAYS OR LESS: None. CHIEF COMPLAINT Chest pain. HISTORY OF PRESENT ILLNESS This is a pleasant 85-year-old black female who was awakened this morning and began having chest pain. She describes it as a midsternal sensation, non-radiating that waxed and waned. She denies any nausea, vomiting, no headache, no dizziness, no syncopal episodes, no recent cough, no cold and no fever. She does state that this is the second time she has had chest pain in approximately three months and the pain was very similar to what she had then. She did take nitroglycerin and a 162 mg aspirin and pain was improved. She states now that the pain is relieved she is alert and oriented, a fair historian. She can answer simple questions but is forgetful to some names and dates. She currently has a history of end-stage renal disease and is on dialysis Sunday, Sunday and Sunday. She states that she has been on dialysis for approximately six months. The patient is currently in the dialysis room here at the hospital receiving her treatment. It was reported per the record and she verified that she went to the dialysis center Sunday but left early because she was so cold. Currently the patient is being transfused with one unit of blood during this dialysis treatment. PAST MEDICAL HISTORY 1. Anemia. 2. Arthritis. 3. Anxiety disorder. 4. Depression. 5. Cardiovascular disease. 6. Coronary artery disease. 7. History of MRSA. 8. History of atrial fib. 9. Cardiomyopathy. 10. Hypothyroidism. 11. Aortic stenosis. 12. End stage renal disease. 13. Anuric. 14. GERD. 15. Hypertension. 16. Cellulitis in her left arm. 17. Sleep apnea, has used CPAP in the past. 18. Pneumonia. PAST SURGICAL HISTORY Most of this information is being gathered from the record and from the patient. 1. Abdominal surgery. 2. Appendectomy. 3. Right upper extremity AV shunt. 4. Three cardiac stents. 5. Left cataract removed. 6. Lithotripsy. 7. Left kidney stent. 8. Gynecological surgery. 9. Hysterectomy. 10. Joint replacement. 11. Bilateral total hip. 12. Bilateral total knee. 13. Oral surgery. 14. Tonsillectomy. ALLERGIES MDRO (MULTIDRUG RESISTANT ORGANISM) JOYCEID AND MORPHINE. MEDICATIONS REPORTED 1. Levothyroxine. 2. Tylenol. 3. Xanax. 4. Colace. 5. Eliquis. 6. Coreg. 7. Multivitamins. 8. Aspirin. 9. Travatan eye drops. 10. Viibryd. SOCIAL HISTORY The patient is single. Currently has just moved to the [facility], it is a supported living place, she has been there approximately three weeks. She has lived very independent, up until about three months ago she was driving but not now. She does have a daughter who lives close by and is very close to her and assists in anyway she can. Rare alcohol intake. No tobacco use. No illicit drug use. FAMILY HISTORY N/A. REVIEW OF SYSTEMS A 12-point review was done, positives noted. Chest pain, anxiety, dialysis. All other systems are negative or unremarkable. PHYSICAL EXAMINATION VITAL SIGNS: Temperature is 98.5, pulse 69, respiratory rate 17, blood pressure 159/81, was as high as 171/85 on initial admission, O2 sat 97, currently on room air using O2 at 2 liters per nasal cannula p.r.n. GENERAL: Slim 85-year-old black female, looks younger than her stated age, resting on a stretcher, alert and conversational, no acute distress. SKIN: Pale mucous membranes but warm and dry. HEENT: Atraumatic, normocephalic. PERRLA at 2. No scleral icterus. No drainage. No nasal drainage. Mucous membranes are pale and moist. NECK: Neck is thin. Trachea is midline. No JVD. CARDIOVASCULAR: Regular rate and rhythm. A stage 3/6 systolic murmur at the second intercostal space left sternal border. No edema. Pulses are intact. RESPIRATORY: Essentially clear breath sounds anteriorly and posteriorly with no wheezes, rales or rhonchi. GASTROINTESTINAL: Abdomen is flat, soft, nontender, nondistended. Active bowel sounds in all four quads. MUSCULOSKELETAL: She moves all extremities with purpose. No obvious deformities. No clubbing, no cyanosis, no edema. NEUROLOGIC: She is alert, awake, slightly anxious over current condition and hospital stay. Speech is clear. 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 PSYCHIATRIC: Appropriate insight, anxious mild. DIAGNOSTIC DATA WBC count 6.4, RBC 2.42, hemoglobin 8.1, hematocrit 23.9, platelet count 243, neutrophil count 62.7, monophil count 8.1. PT/INR 1.1. Chemistry: Sodium 136, potassium 5.5, chloride 103, carbon dioxide 23.8, anion gap 9, BUN 52, creatinine 7.16, GFR 7, random glucose 86, troponin is 0.08 and 0.09, lipase 312, albumin 3.1. IMAGING STUDIES Chest x-ray: The previous noted bibasilar infiltrates have improved. No new infiltrates are demonstrated. ASSESSMENT AND PLAN 1. Chest pain. Rule out [place]. The patient has known coronary artery disease. We will consult her colorman. Monitor her vital signs q.4 and/or p.r.n. DVT prophylaxis with heparin. Heart healthy diet. Monitor her labs. Cardiac monitoring at bedside. Bedrest with bedside commode only if the patient has assistance getting up. We will complete the cardiac lab workup with troponin and CK-MB isoenzyme. IV access. O2 p.r.n. 2. End-stage renal disease. Nephrology has been consulted. The patient is currently receiving dialysis. Her labs were drawn before dialysis. Again, we will monitor vital signs and she will assist with her expert medical management. 3. Cardiomyopathy, aortic stenosis, history of atrial fibrillation. These will be monitored with medical management. We will reconcile her medications. Provide hydration, p.o. preferred. Labs will be ordered for in the morning. The patient is FULL CODE/FULL AGGRESSIVE CARE and we will follow. 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
[2016-03-23] MEDS: SODIUM CHLORIDE 0.9% FLUSH 5 ML FLUSH IV SCH ×2 (08:23→20:37)
--- NOTE | 2016-03-23 08:25 | HHI.PR ---
Subjective Remarks No chest pain since admission No shortness of breath Denies any frequency on urination Alert Cooperative (Bharati Macedo) Objective Objective Results - Vital Signs Date Time Temp Pulse Resp B/P Pulse Ox O2 Delivery O2 Flow Rate FiO2 03/23/16 07:21 98.9 83 17 178/96 98 03/23/16 06:19 98 Nasal Cannula 2.00 03/22/16 23:31 98.8 69 18 143/67 98 03/22/16 21:15 80 03/22/16 21:09 98.8 78 18 141/87 98 03/22/16 19:30 67 16 144/72 96 Room Air 03/22/16 11:55 69 17 159/81 97 Room Air 03/22/16 11:12 99 Nasal Cannula 2.00 03/22/16 10:30 67 16 158/74 95 Room Air (Bharati Macedo) Result Diagram: 03/22/16 0625 03/22/16 0635 ROS General: Weakness (generalized), Other (10 point ROS done positives include weakness, chest pain on admission, cough occasional. an uric Other systems negative or unremarkable) Cardiac: Chest Pain (on admission) Pulmonary: Cough (occasional) /RIBBON HAND: Other (anuria) (Bharati Macedo) Physical Exam Physical Exam PHYSICAL EXAMINATION GENERAL: This is a well-developed, well-nourished female who appears to be in no acute distress. She is alert and awake, responsive HEAD: Normocephalic without any lesion or mass noted. Facial features appear symmetric. OROPHARYNGEAL: Oropharynx without erythema or edema. NECK: Supple. No nuchal rigidity or lymphadenopathy. Trachea midline without deviation. CARDIAC: Regular rhythm, regular rate, S1 and S2 are heard. Murmur systolic, grade 3/6, second ICS; no gallops or rubs. LUNGS: Clear to auscultation bilaterally anterior lobes. no wheeze, No rhonchi or mild crackles or dominantly in left base. No use of accessory muscles on inspiration or expiration. Cough occasional ABDOMEN: Soft, nontender, no organomegaly or masses. Bowel sounds are heard in all four quadrants. No rebound. No guarding. EXTREMITIES: No edema. Pulses equal bilateral. No cyanosis. NEUROLOGICAL: Patient mood and affect appropriate. No focal deficit SKIN:Warm and moist, dry. Objective Remarks I'm feeling better today (Bharati Macedo) A/P Assessment and Plan Chest pain rule out [place] End-stage renal disease, on hemodialysis Anxiety disorder History of congestive heart failure Hypothyroidism, patient on medication New onset A. fib Anemia Cardiomyopathy Mildly elevated troponins Plan Appreciate cardiology consult. EKG noted with Atrial enlargement with T-wave abnormality O2 therapy. According to cardiology ,troponin elevation is nonspecific due to her end-stage renal failure. moderate three-vessel coronary disease. Could be partially a demand issue, but doubts this is the primary event. Based on the atorvastatin, aspirin, Carvedilol, nitro-paste begun. Currently patient's rhythm is regular sinus rhythm. Vital signs reviewed DVT prophylaxis, Xarelto, heparin, aspirin Meds reconciled. TSH level, 6.25, will discuss plan with Dr. Lara. With Synthroid dose, currently 50mcg./day Anemia, 1 unit packed RBCs yesterday with dialysis. Currently hemoglobin 8.1. Patient has less symptoms of cold feeling, monitor. Monitor labs Appreciate consult from nephrology. Patient has hemodialysis on Sunday She did receive her dialysis yesterday after admission. Hopefully discharge within a day or 2. Discharge Planning Home, hopeful Discussed With: Family (patient), Other (Dr. Lara, she seen on his behalf) ( Bharati Macedo) Assessment and Plan Patient seen and examined as above [id number] time spent with patient Meds reviewed Labs reviewed Discussed with RN Plan of care discussed with BILLET RECORDER Appreciate consultants input Discussed with patient Plan for physical therapy Plan for free T4 BMP tomorrow morning (Leo Lara MD) Bharati Macedo Mar 23, 2016 08:25 Leo Lara MD Mar 23, 2016 13:35
[2016-03-23] MEDS: MEGESTROL ACETATE SUSP 400 MG/10 ML CUP PO SCH (08:32)
--- NOTE | 2016-03-23 08:42 | EKG ---
Date Performed: 03/22/2016 Time Performed: 19:29:02 PTAGE: 85 years EKG: Sinus rhythm WITH FREQUENT VENTRICULAR PREMATURE COMPLEXES WITH OCCASIONAL SUPRAVENTRICULAR PREMATURE COMPLEXES P OSSIBLE LEFT ATRIAL ENLARGEMENT MARKED LEFT AXIS DEVIATION LEFT VENTRICULAR HYPERTROPHY AND ST-T TORRES GE ABNORMAL ECG PREVIOUS TRACING : 03/22/2016 06.12 DOCTOR: Jurgen Jose Interpretating Date/Time 03/23/2016 08:38:51
--- NOTE | 2016-03-23 08:53 | HHI.NPPN ---
Subjective General Problems: Anemia Renal Failure: Chronic, End Stage Renal Disease Interval History Lying in bed. No further reports of chest pain. Dialysis yesterday with blood transfusion. (Lelo Chong) Review of Systems Respiratory Lungs: SOB (Lelo Chong) Cardiovascular Cardiac: Chest Pain (Lelo Chong) Objective Data Data Vital Signs Date Time Temp Pulse Resp B/P Pulse Ox O2 Delivery O2 Flow Rate FiO2 03/23/16 07:21 98.9 83 17 178/96 98 03/23/16 06:19 98 Nasal Cannula 2.00 03/22/16 23:31 98.8 69 18 143/67 98 03/22/16 21:15 80 03/22/16 21:09 98.8 78 18 141/87 98 03/22/16 19:30 67 16 144/72 96 Room Air 03/22/16 11:55 69 17 159/81 97 Room Air 03/22/16 11:12 99 Nasal Cannula 2.00 03/22/16 10:30 67 16 158/74 95 Room Air (Lelo Chong) -: 03/22/16 0625 03/22/16 0635 Imaging Last 72 hours Impressions Chest X-Ray 03/22/16 0638 Signed Impressions: Service Date/Time: Tuesday, March 22, 2016 06:51 - CONCLUSION: The previously noted bibasilar infiltrates have improved. No new infiltrates are demonstrated. Justin House MD (Lelo Chong) Physical Exam General Appearance: Well Developed, Well Nourished, Comfortable (Lelo Chong) Throat Throat Exam: Oral Mucosa [place] & Moist (Lelo Chong) Neck Neck Exam: Neck Supple (Lelo Chong) Pulmonary Resp Exam: Clear Bilaterally, Breath Sounds Equal (Lelo Chong) Cardiology CV Exam: Regular, Normal Sinus Rhythm (Lelo Chong) Gastrointestinal/Abdomen GI Exam: Soft, Non-Tender, Bowel Sounds Present (Lelo Chong) Musculoskeletal MS Exam: Joints Intact, Good Strength (Lelo Chong) Integumentary Skin Exam: Clear, Warm, Dry, Intact (Lelo Chong) Extremeties Extremities Exam: No Edema, Pedal Pulses Palpable (Lelo Chong) Neurologic Neuro Exam: Alert, Awake, Oriented, Speech Clear, Moving All Extremities ( Lelo Chong) Psychiatric Psych Exam: Appropriate Responses (Lelo Chong) Assessment/Plan Discussed Condition With: Patient Assessment Summary: Anemia of CKD, End Stage Renal Disease Problem List: (1) ESRD (end stage renal disease) Plan: Dialyzed yesterday, We will dialyze today and maintain -- schedule fluid volume status is acceptable, no IVF required repeat K in process high protein, low K diet; she is on Megace for appetite stimulation renal panel in am check phosphorus and initiate binders if needed she has AVF right arm that functions well. (2) Chest pain Plan: no current complaints, was relieved by NTG this morning cardiology has evaluated, she has hx of CAD appreciate further recommendations (3) Anemia Plan: transfused yesterday, also on epogen with dialysis repeat Hb pending (4) Hypertension Plan: BP acceptable continue oral medications, titrate to effectiveness (5) Atrial fibrillation Plan: now in NSR she is on Eliquis (Lelo Chong) Plan patient was seen and examined. Dialysis will be continued. She may be suffering from dementia. (Roland Miramontes MD) Problem Qualifiers (1) Chest pain: Qualified Code: R07.9 - Chest pain, unspecified type (2) Anemia: Qualified Code: D64.9 - Anemia, unspecified type (3) Hypertension: Qualified Code: I10 - Essential hypertension (4) Atrial fibrillation: Qualified Code: I48.91 - Atrial fibrillation, unspecified type Lelo Chogn Mar 23, 2016 08:53 Roland Miramontes MD Mar 24, 2016 14:32
[2016-03-23 09:11] LABS: BICARBONATE 28.3 MEQ/L (21.0-32.0); POTASSIUM 4.2 MEQ/L (3.5-5.1)
[2016-03-23 09:42] VITALS: PULSE 76
[2016-03-23 11:54] VITALS: BP 135/58; PULSE 60; RESP 20; TEMP 98.3; O2SAT 98
--- NOTE | 2016-03-23 14:32 | PD.CARD.PN ---
Subjective Subjective Remarks alert in nad. assymptomatic, requests to be discharged Objective Vital Signs / I&O Vital Signs Date Time Temp Pulse Resp B/P Pulse Ox O2 Delivery O2 Flow Rate FiO2 03/23/16 13:06 98 Nasal Cannula 3.00 03/23/16 11:54 98.3 60 20 135/58 98 03/23/16 09:42 76 03/23/16 07:21 98.9 83 17 178/96 98 03/23/16 06:19 98 Nasal Cannula 2.00 03/22/16 23:31 98.8 69 18 143/67 98 03/22/16 21:15 80 03/22/16 21:09 98.8 78 18 141/87 98 03/22/16 19:30 67 16 144/72 96 Room Air Physical Exam GENERAL: SKIN: Warm and dry. HEAD: Normocephalic. EYES: No scleral icterus. No injection or drainage. NECK: Supple, trachea midline. No JVD or lymphadenopathy. CARDIOVASCULAR: Regular rate and rhythm without murmurs, gallops, or rubs. RESPIRATORY: Breath sounds equal bilaterally. No accessory muscle use. GASTROINTESTINAL: Abdomen soft, non-tender, nondistended. MUSCULOSKELETAL: No cyanosis, or edema. BACK: Nontender without obvious deformity. No CVA tenderness. Laboratory Laboratory Tests Test 03/22/16 03/23/16 20:27 05:52 Magnesium Level 2.1 MG/DL Troponin I 0.09 NG/ML Sodium Level 137 MEQ/L Potassium Level 4.2 MEQ/L Chloride Level 98 MEQ/L Carbon Dioxide Level 28.3 MEQ/L Anion Gap 11 MEQ/L Blood Urea Nitrogen 30 MG/DL Creatinine 4.78 MG/DL Estimat Glomerular Filtration 10 ML/MIN Rate Random Glucose 87 MG/DL Calcium Level 8.3 MG/DL Phosphorus Level 4.2 MG/DL Albumin 2.8 GM/DL Thyroid Stimulating Hormone 6.250 uIU/ML 3rd Gen Assessment and Plan Problem List: (1) NSTEMI (non-ST elevated myocardial infarction) (2) Elevated troponin (3) Depression (4) CAD (coronary artery disease) (5) Atrial fibrillation (6) Anemia (7) ESRD (end stage renal disease) (8) Hypertension Assessment and Plan 1.) NSTEMI -secondary to anemia and nonspecific trop elevation d/t esrd, assymptomatic, continue eliquis, statin, ok to dc from cv standpoint f/u with me 03/27/16, d/w patient and nurse at the bedside 2.) PAF - assymptomatic, continue Zohaib Cruz MD Mar 23, 2016 14:32
[2016-03-23 16:05] VITALS: BP 128/63; PULSE 73; RESP 18; TEMP 98.1; O2SAT 100
[2016-03-23 20:11] VITALS: BP 137/69; PULSE 82; RESP 21; TEMP 98; O2SAT 97
[2016-03-23] MEDS: LATANOPROST 0.005% OPHT SOLN 2.5 ML BTL EACH EYE SCH (20:37)
[2016-03-23] MEDS: ATORVASTATIN 20 MG TAB PO SCH (20:38)
[2016-03-24] VITALS: BP 132/69; PULSE 84; RESP 21; TEMP 98.4; O2SAT 98
[2016-03-24 00:51] VITALS: PULSE 80
[2016-03-24] MEDS: LEVOTHYROXINE SODIUM 50 MCG TAB PO SCH (05:00)
[2016-03-24] MEDS: NITROGLYCERIN 2% OINT 1 GM PACKET TOP SCH ×2 (05:00→12:07)
[2016-03-24 08:14] VITALS: BP 154/75; PULSE 84; RESP 16; TEMP 98.6; O2SAT 96
--- NOTE | 2016-03-24 08:20 | HHI.DCPOC ---
Discharge Care Plan Diagnosis: (1) Chest pain (2) Hypertension (3) ESRD (end stage renal disease) (4) Pulmonary edema (5) Shortness of breath Your Health Problems Are: Chest Pain Fluid/Lung Overload Shortness of Breath Goals to Promote Your Health * To prevent worsening of your condition and complications * To maintain your health at the optimal level Directions to Meet Your Goals Take your medications as prescribed Follow your dietary instruction Follow activity as directed Keep your appointments as scheduled Take your immunizations and boosters as scheduled If your symptoms worsen call your PCP, if no PCP go to Urgent Care Center or Emergency Room Smoking is Dangerous to Your Health. Avoid second hand smoke Call the 24-hour hour crisis hotline for domestic abuse at Garima Neely Mar 24, 2016 08:20
--- NOTE | 2016-03-24 08:32 | HHI.PR ---
Subjective Subjective Remarks no cp no sob feels weak anxious, tearful tired of being sick, "I'm used to being on the go" no acute changes overnight Review of Systems Constitutional Constitutional Remarks 12 point of ROS completed, negative except as noted above Vitals/Results Intake & Output 03/23/16 03/23/16 03/24/16 15:00 23:00 07:00 Intake Total 240 ml Balance 240 ml Intake Oral 240 ml # Voids 1 2 # Bowel Movements 1 Vital Signs Vital Signs Date Time Temp Pulse Resp B/P Pulse Ox O2 Delivery O2 Flow Rate FiO2 03/24/16 08:14 98.6 84 16 154/75 96 03/24/16 00:51 80 03/24/16 00:00 98.4 84 21 132/69 98 03/23/16 20:11 98.0 82 21 137/69 97 03/23/16 19:03 Nasal Cannula 3.00 03/23/16 16:05 98.1 73 18 128/63 100 03/23/16 13:06 98 Nasal Cannula 3.00 03/23/16 11:54 98.3 60 20 135/58 98 03/23/16 09:42 76 CBC/BMP: 03/22/16 0625 03/23/16 0552 Physical Exam General General Appearance: Well Developed, Well Nourished, Comfortable Eyes Eye Exam: Pupils Equal, Pupils Reactive Ears & Nose Ears & Nose Exam: Nasal Mucosa [place] Throat Throat Exam: Oral Mucosa [place] & Moist Neck Neck Exam: Neck Supple Pulmonary Resp Exam: No Distress, Decreased Bases Cardiology CV Exam: Regular, Normal Sinus Rhythm, Murmur Gastrointestinal/Abdomen GI Exam: Soft, Non-Tender, Bowel Sounds Present, Non-Distended Musculoskeletal MS Exam: Joints Intact, Good Strength Integumentary Skin Exam: Clear, Warm, Dry, Intact Extremeties Extremities Exam: Pedal Pulses Palpable, Trace Edema Neurologic Neuro Exam: Alert, Awake, Oriented, Speech Clear, Moving All Extremities, No Focal Deficits Psychiatric Psych Exam: Appropriate Responses VTE Prophylaxis VTE Remarks Eliquis Assessment/Plan Problem List: (1) Chest pain (2) Cardiomyopathy (3) Murmur (4) Hyperlipidemia (5) Hypothyroid (6) Aortic stenosis (7) Atrial fibrillation (8) Anemia (9) ESRD (end stage renal disease) (10) Hypertension (11) Depression (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 nonspecific continue ASA, BB, statin, ASA continue Eliquis appreciate nephrology input HD per schedule Appreciate cardiology consult. EKG noted with Atrial enlargement with T-wave abnormality HH stable S/P 1 unit PRBC given TSH level noted, free T4 pending Continue Synthroid Anxiety continue Xanax PRN Pt. would benefit from hospice services at SNF for support, her health is declining, multiple admissions. Plan to dc today to SNF F/U Dr. Valentin 03/27 F/U nephrology F/U PCP Diet-heart healthy Activity as tolerated D/W RN D/W pt. D/W Dr. Lara This pt. was seen by myself and Dr. Lara, this note is written on his behalf. Problem Qualifiers (1) Chest pain: Qualified Code: R07.9 - Chest pain, unspecified type (2) Cardiomyopathy: Qualified Code: I42.9 - Cardiomyopathy, unspecified type (3) Hyperlipidemia: Qualified Code: E78.5 - Hyperlipidemia, unspecified hyperlipidemia type (4) Hypothyroid: Qualified Code: E03.9 - Hypothyroidism, unspecified type (5) Aortic stenosis: Qualified Code: I35.0 - Aortic valve stenosis, unspecified etiology (6) Atrial fibrillation: Qualified Code: I48.91 - Atrial fibrillation, unspecified type (7) Anemia: Qualified Code: D64.9 - Anemia, unspecified type (8) Hypertension: Qualified Code: I10 - Essential hypertension (9) Depression: Qualified Code: F32.9 - Depression, unspecified depression type Garima Neely Mar 24, 2016 08:32
--- NOTE | 2016-03-24 09:01 | HHI.NPPN ---
Subjective General Problems: Anemia Renal Failure: Chronic, End Stage Renal Disease Interval History Seen during dialysis. Probable discharge today. She is tearful, confused. ( Lelo Chong) Review of Systems Respiratory Lungs: SOB (Lelo Chong) Cardiovascular Cardiac: Chest Pain (Lelo Chong) Objective Data Data 03/23/16 03/24/16 19:00 07:00 Intake Total 240 ml Balance 240 ml Intake Oral 240 ml # Voids 1 2 # Bowel Movements 1 Vital Signs Date Time Temp Pulse Resp B/P Pulse Ox O2 Delivery O2 Flow Rate FiO2 03/24/16 08:14 98.6 84 16 154/75 96 03/24/16 00:51 80 03/24/16 00:00 98.4 84 21 132/69 98 03/23/16 20:11 98.0 82 21 137/69 97 03/23/16 19:03 Nasal Cannula 3.00 03/23/16 16:05 98.1 73 18 128/63 100 03/23/16 13:06 98 Nasal Cannula 3.00 03/23/16 11:54 98.3 60 20 135/58 98 03/23/16 09:42 76 (Lelo Chong) -: 03/22/16 0625 03/23/16 0552 Physical Exam General Appearance: Well Developed, Well Nourished, Comfortable, Anxious (Lelo Chong) Eyes Eye Exam: Pupils Equal, Pupils Reactive (Lelo Chong) Ears & Nose Ears & Nose Exam: Nasal Mucosa [place] (Lelo Chong) Throat Throat Exam: Oral Mucosa [place] & Moist (Lelo Chong) Neck Neck Exam: Neck Supple (Lelo Chong) Pulmonary Resp Exam: Clear Bilaterally, Breath Sounds Equal, No Distress (Lelo Chong) Cardiology CV Exam: Regular, Normal Sinus Rhythm, Murmur (Lelo Chong) Gastrointestinal/Abdomen GI Exam: Soft, Non-Tender, Bowel Sounds Present, Non-Distended (Lelo Chong) Musculoskeletal MS Exam: Joints Intact, Good Strength (Lelo Chong) Integumentary Skin Exam: Clear, Warm, Dry, Intact (Lelo Chong) Extremeties Extremities Exam: Pedal Pulses Palpable, Trace Edema (Lelo Chong) Neurologic Neuro Exam: Alert, Awake, Oriented, Speech Clear, Moving All Extremities, No Focal Deficits (Lelo Chong) Psychiatric Psych Exam: Appropriate Responses (Lelo Chong) Assessment/Plan Discussed Condition With: Patient Assessment Summary: Anemia of CKD, End Stage Renal Disease Problem List: (1) ESRD (end stage renal disease) Plan: Seen during dialysis on a 3K, 350 BFR, goal 2L fluid volume status is acceptable, no IVF required high protein, low K diet; she is on Megace for appetite stimulation she has AVF right arm that functions well. if discharged she can resume -W- outpatient HD arrangements (2) Chest pain Plan: resolved cardiology has evaluated, she has hx of CAD no intervention planned (3) Anemia Plan: transfused since admission, also on epogen with dialysis (4) Hypertension Plan: BP acceptable continue oral medications, titrate to effectiveness (5) Atrial fibrillation Plan: now in NSR she is on Eliquis (Lelo Chong) Plan patient was seen and examined. Agree with above assessment and plan. (Roland Miramontes MD) Problem Qualifiers (1) Chest pain: Qualified Code: R07.9 - Chest pain, unspecified type (2) Anemia: Qualified Code: D64.9 - Anemia, unspecified type (3) Hypertension: Qualified Code: I10 - Essential hypertension (4) Atrial fibrillation: Qualified Code: I48.91 - Atrial fibrillation, unspecified type Lelo Chong Mar 24, 2016 09:01 Roland Miramontes MD Mar 24, 2016 14:41
[2016-03-24 09:50] LABS: BICARBONATE 21.2 MEQ/L (21.0-32.0); FREE T4 0.82 NG/DL (0.76-1.46); POTASSIUM 5.3 MEQ/L (3.5-5.1)
--- NOTE | 2016-03-24 09:52 | PD.CARD.PN ---
Subjective Subjective Remarks c/o being cold, denies chest pain Objective Vital Signs / I&O Vital Signs Date Time Temp Pulse Resp B/P Pulse Ox O2 Delivery O2 Flow Rate FiO2 03/24/16 08:14 98.6 84 16 154/75 96 03/24/16 00:51 80 03/24/16 00:00 98.4 84 21 132/69 98 03/23/16 20:11 98.0 82 21 137/69 97 03/23/16 19:03 Nasal Cannula 3.00 03/23/16 16:05 98.1 73 18 128/63 100 03/23/16 13:06 98 Nasal Cannula 3.00 03/23/16 11:54 98.3 60 20 135/58 98 I/O 03/23/16 03/23/16 03/23/16 03/24/16 03/24/16 03/24/16 07:00 15:00 23:00 07:00 15:00 23:00 Intake Total 240 ml Balance 240 ml Intake Oral 240 ml # Voids 1 1 2 # Bowel Movements 1 Physical Exam GENERAL: SKIN: Warm and dry. HEAD: Normocephalic. EYES: No scleral icterus. No injection or drainage. NECK: Supple, trachea midline. No JVD or lymphadenopathy. CARDIOVASCULAR: Regular rate and rhythm without murmurs, gallops, or rubs. RESPIRATORY: Breath sounds equal bilaterally. No accessory muscle use. GASTROINTESTINAL: Abdomen soft, non-tender, nondistended. MUSCULOSKELETAL: No cyanosis, or edema. BACK: Nontender without obvious deformity. No CVA tenderness. Laboratory Laboratory Tests Test 03/24/16 07:02 Sodium Level 131 MEQ/L Potassium Level 5.3 MEQ/L Chloride Level 95 MEQ/L Carbon Dioxide Level 21.2 MEQ/L Anion Gap 15 MEQ/L Blood Urea Nitrogen 44 MG/DL Creatinine 5.92 MG/DL Estimat Glomerular Filtration 8 ML/MIN Rate Random Glucose 71 MG/DL Calcium Level 8.7 MG/DL Free Thyroxine 0.82 NG/DL Assessment and Plan Problem List: (1) NSTEMI (non-ST elevated myocardial infarction) (2) Elevated troponin (3) Depression (4) CAD (coronary artery disease) (5) Atrial fibrillation (6) Anemia (7) ESRD (end stage renal disease) (8) Hypertension Assessment and Plan 1.) NSTEMI -secondary to anemia and nonspecific trop elevation d/t esrd, assymptomatic, continue eliquis, statin, ok to dc from cv standpoint f/u with me 03/27/16, d/w patient and nurse at the bedside 2.) PAF - assymptomatic, continue eliquis Problem Qualifiers (1) Depression: Qualified Code: F32.9 - Depression, unspecified depression type (2) Atrial fibrillation: Qualified Code: I48.91 - Atrial fibrillation, unspecified type (3) Anemia: Qualified Code: D64.9 - Anemia, unspecified type (4) Hypertension: Qualified Code: I10 - Essential hypertension Zohaib Valentin MD Mar 24, 2016 09:52
[2016-03-24] MEDS ORDERED: ALPR0.25 PO (10:48)
[2016-03-24] MEDS: EPOETIN ALFA 10,000 UNITS/ML VIAL IV PRN (11:43)
[2016-03-24] MEDS: ASPIRIN 81 MG CHEW TAB PO SCH (12:03)
[2016-03-24] MEDS: CARVEDILOL 6.25 MG TAB PO SCH (12:03)
[2016-03-24] MEDS: DOCUSATE SODIUM 100 MG CAP PO SCH (12:03)
[2016-03-24] MEDS: MULTIVITAMIN TAB PO SCH (12:03)
[2016-03-24] MEDS: APIXABAN 2.5 MG TABLET PO SCH (12:04)
[2016-03-24] MEDS: SODIUM CHLORIDE 0.9% FLUSH 5 ML FLUSH IV SCH (12:05)
--- NOTE | 2016-03-24 13:13 | HHI.FF ---
Face to Face Verification Diagnosis: (1) ESRD (end stage renal disease) (2) Chest pain (3) Hypertension (4) Depression (5) CAD (coronary artery disease) Physical Therapy Order: Evaluate and Treat Home Health Nursing Order: Medical education CHF education Nursing assessment with vital signs Class A Regional Drivers Order: To Evaluate: Support services Order: To Provide: Community services I have seen patient Wandy Meehan on 03/24/16. My clinical findings support the need for the requested home health care services because: Patient has SOB Deconditioned w/ increased weakness I certify that my clinical findings support that this patient is homebound because: Poor cardiac reserve Garima Neely Mar 24, 2016 13:13
[2016-03-24] MEDS: MEGESTROL ACETATE SUSP 400 MG/10 ML CUP PO SCH (15:43)
[2016-03-24 15:49] VITALS: BP 105/48; PULSE 67; RESP 14; TEMP 98; O2SAT 97
--- NOTE | 2016-03-24 19:00 | HHI.DS ---
Discharge Summary Admission Date Mar 22, 2016 at 07:55 Discharge Date: Mar 24, 2016 Admitting Diagnosis chest pain (1) Chest pain (2) ESRD (end stage renal disease) (3) Hypertension (4) CAD (coronary artery disease) (5) Depression (6) Aortic stenosis (7) Cardiomyopathy (8) Hypothyroid (9) Atrial fibrillation CBC/BMP: 03/22/16 0625 03/24/16 0702 Significant Findings Laboratory Tests Test 03/22/16 03/22/16 03/22/16 03/22/16 06:25 06:35 12:04 20:27 Red Blood Count 2.42 MIL/MM3 (4.00-5.30) Hemoglobin 8.1 GM/DL (11.6-15.3) Hematocrit 23.9 % (35.0-46.0) Monocytes (%) (Auto) 8.1 % (0.0-8.0) Prothrombin Time 11.9 SEC (9.8-11.6) Potassium Level 5.5 MEQ/L (3.5-5.1) Blood Urea Nitrogen 52 MG/DL (7-18) Creatinine 7.16 MG/DL (0.50-1.00) Estimat Glomerular Filtration 7 ML/MIN (>89) Rate Magnesium Level 2.7 MG/DL (1.5-2.5) Aspartate Amino Transf 13 U/L (15-37) (AST/SGOT) Troponin I 0.08 NG/ML 0.09 NG/ML 0.09 NG/ML (0.02-0.05) (0.02-0.05) (0.02-0.05) Albumin 3.1 GM/DL (3.4-5.0) Test 03/23/16 03/24/16 05:52 07:02 Blood Urea Nitrogen 30 MG/DL (7-18) 44 MG/DL (7-18) Creatinine 4.78 MG/DL 5.92 MG/DL (0.50-1.00) (0.50-1.00) Estimat Glomerular Filtration 10 ML/MIN (>89) 8 ML/MIN (>89) Rate Calcium Level 8.3 MG/DL (8.5-10.1) Albumin 2.8 GM/DL (3.4-5.0) Thyroid Stimulating Hormone 6.250 uIU/ML 3rd Gen (0.358-3.740) Sodium Level 131 MEQ/L (136-145) Potassium Level 5.3 MEQ/L (3.5-5.1) Chloride Level 95 MEQ/L (98-107) Random Glucose 71 MG/DL (74-106) Imaging Last Impressions Chest X-Ray 03/22/16 0638 Signed Impressions: Service Date/Time: Tuesday, March 22, 2016 06:51 - CONCLUSION: The previously noted bibasilar infiltrates have improved. No new infiltrates are demonstrated. Justin House MD Hospital Course This is a pleasant 85-year-old black female who was awakened and had chest pain. She describes it as a midsternal sensation, non-radiating that waxed and waned. She denied any nausea, vomiting, no headache, no dizziness, no syncopal episodes, no recent cough, no cold and no fever. She did take nitroglycerin and a 162 mg aspirin and pain was improved. Pt. has had multiple admissions, has PMHx of CAD, afib, cardiomyopathy, ESRD on HD. Currently residing at [facility]. Pt. was admitted for: (1) Chest pain (2) Cardiomyopathy (3) Murmur (4) Hyperlipidemia (5) Hypothyroid (6) Aortic stenosis (7) Atrial fibrillation (8) Anemia (9) ESRD (end stage renal disease) (10) Hypertension (11) Depression (12) Metabolic bone disease (13) Anxiety During the course of the hospitalization, the following took place: serial cardiac enzymes done, trop elevated but not trending upwards was seen by Dr. Valentin, continued on medical management continued ASA, BB, statin, ASA continued Eliquis appreciated nephrology input HD per schedule stable S/P 1 unit PRBC given TSH level noted, free T4 pending Continued Synthroid Continued on home medications Anxiety continued Xanax PRN Pt. stable for discharge. Discharged to [facility] Instructed to: F/U Dr. Valentin 03/27 F/U nephrology F/U PCP Diet-heart healthy Activity as tolerated Pt Condition on Discharge: Stable Discharge Disposition: [facility] with [facility] Discharge Instructions DIET: Follow Instructions for: Heart Healthy Diet Activities you can perform: Weight Bearing as Rima Follow up Referrals: Cardiology Nephrology PCP Follow-up Continued Medications: Acetaminophen (Tylenol) 325 Mg Cap 325 MG PO Q6H PRN PAIN SCALE 1 TO 4 Ref 0 CAP Alprazolam (Alprazolam) 0.25 Mg Tab 0.25 MG PO Q4H PRN ANXIETY #21 Ref 0 TAB (This prescription has been renewed) Apixaban (Eliquis) 2.5 Mg Tab 2.5 MG PO BID Blood Clot Prevention Ref 0 TAB Aspirin (Aspirin) 81 Mg Tabdr 81 MG PO DAILY Blood Clot Prevention TAB Atorvastatin (Lipitor) 20 Mg Tab 20 MG PO HS CAD #30 TAB Carvedilol (Coreg) 6.25 Mg Tab 6.25 MG PO BID #60 Ref 0 TAB Docusate Sodium (Docusate Sodium) 100 Mg Cap 100 MG PO BID Prevent Constipation #60 Ref 0 CAP Levothyroxine (Levothyroxine) 50 Mcg Tab 50 MCG PO DAILY Thyroid #30 Ref 0 TAB Megestrol Liq (Megestrol Liq) 40 Mg/Ml Susp 800 MG PO DAILY POOR APPETITE #60 Ref 1 CONTAINER Multiple Vitamin (Multi Vitamin) 1 Tab Tab 1 TAB PO DAILY TAB Travoprost Opth Drops (Travatan Z Opth Drops) 0.004 % Soln 1 DROP EACH EYE HS PRN Glaucoma #1 Ref 0 BOTTLE Vilazodone (Viibryd) 40 Mg Tab 40 MG PO DAILY Control Depression #30 Ref 0 TAB Garima Neely Mar 24, 2016 19:00
[2016-06-08] MEDS ORDERED: ULTR50TA5 PO (18:36)
[2016-06-08] MEDS ORDERED: ALPR.25 PO ×2 (18:36)
[2016-06-08] MEDS ORDERED: CEPH-460 PO (22:57)
== END 2016-03-24 17:00 ==
LOC: NEPC 06:09 → NEDA 07:55 → NEDH 12:46 → NEDA 17:25 → NEPHCDU 21:05
PROVIDERS: ADMIT Specialist; ATTEND Specialist
DX: R07.9 Chest pain, unspecified (principal); I21.4 Non-ST elevation (NSTEMI) myocardial infarction; I42.9 Cardiomyopathy, unspecified; I12.0 Hypertensive chronic kidney disease with stage 5 chronic kidney disease or end stage renal disease; N18.6 End stage renal disease; D63.1 Anemia in chronic kidney disease; I48.0 Paroxysmal atrial fibrillation; I25.10 Atherosclerotic heart disease of native coronary artery without angina pectoris; I35.0 Nonrheumatic aortic (valve) stenosis; I70.1 Atherosclerosis of renal artery; I73.9 Peripheral vascular disease, unspecified; E87.5 Hyperkalemia; E78.5 Hyperlipidemia, unspecified; E03.9 Hypothyroidism, unspecified; F41.8 Other specified anxiety disorders; G47.30 Sleep apnea, unspecified; R79.89 Other specified abnormal findings of blood chemistry; Z95.5 Presence of coronary angioplasty implant and graft; Z96.643 Presence of artificial hip joint, bilateral; Z96.653 Presence of artificial knee joint, bilateral; Z99.2 Dependence on renal dialysis
CPT/HCPCS: 36430; 71010; 80048; 80053; 80069; 82550; 83690; 83735; 84439; 84443; 84484; 85025; 85610; 85730; 86850; 86900; 86901; 86920; 93005; 96374; 97162; 99285; G0257; G0378; J7030; P9016; Q4081; 90935

== ENCOUNTER 2016-03-26 09:08 | Observation (INO) | payer MEDICARE, BC ==
[~2016-03-26] VITALS: Ht 172.7 cm; Wt 59.9 kg
[2016-03-26] VITALS (10 sets, daily range): BP systolic 149–196; BP diastolic 67–89; PULSE 73–100; RESP 16–18; TEMP 97.6–99.1; O2SAT 89–100
[~2016-03-26 09:08] MED LIST changes: +ACET1CAP18 PO; +ALPR0.25 PO; -AMLO1TAB99 PO; +APIX2.5T PO; -COQ-100C2 PO; -CYAN25003 SL; +DOCU100C PO; -HYDR-3533 PO; -OXYC1TAB35 PO; -SEVEL800 PO
--- NOTE | 2016-03-26 09:28 | PD ---
HPI Chief Complaint: Respiratory Symptoms Time Seen by Provider: 09:17 Travel History International Travel<30 days: No Contact w/Intl Traveler<30days: No Traveled to known affect area: No History of Present Illness HPI 85-year-old female with history of HTN, ESRD on dialysis Sunday/Sunday/Sunday , CAD with cardiac catheterization approximately 5 months ago with mild three- vessel disease, EF 45-50% here with shortness of breath since this morning. Patient dialyzed last on Sunday, 2 days ago. Believe she had a full run. She woke up this morning feeling shortness of breath, wheezy. She does not have any history of underlying pulmonary disease, COPD, asthma, etc. She denies any known history of heart failure. Patient does not know her weight, she has not had any lower extremity edema. In route she was hypoxic in the mid 80s, given albuterol 3. Shortness of breath made worse with exertion. No cough or chest congestion.Patient starting to feel slightly improved. PFSH Past Medical History Anemia: Yes Arthritis: Yes Asthma: No Blood Disorders: No Anxiety: Yes Depression: Yes Heart Rhythm Problems: Yes Cancer: No Cardiac Catheterization: Yes (X3) Cardiovascular Problems: Yes (3 STENTS) High Cholesterol: No Chest Pain: Yes Congestive Heart Failure: No COPD: No Coronary Artery Disease: Yes Diabetes: No Endocrine: Yes Gastrointestinal Disorders: Yes (HEART BURN) GERD: Yes Genitourinary: Yes (ESRD - ON DIALYSIS) Hypertension: Yes Immune Disorder: No Implanted Vascular Access Dvce: Yes Musculoskeletal: Yes (RIGHT HIP) Neurologic: No Psychiatric: Yes Reproductive: No Respiratory: Yes Integumentary: Yes (CELLULITIS L ARM) Immunizations Current: Yes Pneumonia: Yes Renal Failure: Yes Sleep Apnea: Yes (HAD CPAP IN PAST) Thyroid Disease: Yes ?: Not : 4 Para: 0 Past Surgical History Abdominal Surgery: Yes Appendectomy: Yes Arteriovenous Shunt: Yes (RUE) Body Medical Devices: 3 CARDIAC STENTS, KIDNEY STENT, HX R CHEST DIALYSIS CATH Coronary Stent: Yes (X3) Eye Surgery: Yes (L CATARACT REMOVED) Genitourinary Surgery: Yes (STONES REMOVED, L KIDNEY STENT) Gynecologic Surgery: Yes Hysterectomy: Yes Joint Replacement: Yes (BILAT TOTAL HIP, BILAT TOTAL KNEE) Oral Surgery: Yes Tonsillectomy: Yes Other Surgery: Yes Social History Alcohol Use: Yes (RARE) Tobacco Use: No Substance Use: No Allergies-Medications (Allergen,Severity, Reaction): Coded Allergies: Dilaudid (Verified Allergy, Severe, ANAPHYLACTIC, 03/26/16) Morphine (Verified Allergy, Severe, ANAPHYLACTIC, 03/26/16) *MDRO Multi-Drug Resistant Organism (Verified Adverse Reaction, Unknown, ) 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 Reported Meds & Prescriptions Reported Meds & Active Scripts Active Megestrol Liq (Megestrol Acetate) 40 Mg/Ml Susp 800 Mg PO DAILY Lipitor (Atorvastatin Calcium) 20 Mg Tab 20 Mg PO HS Reported Nephro-Anne (B-Complex W/ C & Folic Acid) 1 Tab 1 Tab PO DAILY Sensipar (Cinacalcet) 30 Mg Tab 30 Mg PO DAILY Xanax (Alprazolam) 0.25 Mg Tab 0.25 Mg PO Q8H PRN Renvela (Sevelamer Carbonate) 800 Mg Tab 800 Mg PO TID Carvedilol 12.5 Mg Tab 12.5 Mg PO Q12HR Thera-M (Multiple Vitamins W/ Minerals) 1 Tab 1 Tab PO DAILY Tylenol (Acetaminophen) 325 Mg Cap 650 Mg PO Q4HR PRN Docusate Sodium 100 Mg Cap 100 Mg PO BID Eliquis (Apixaban) 2.5 Mg Tab 2.5 Mg PO BID Aspirin 81 Mg Tabdr 81 Mg PO DAILY Travatan Z Opth Drops (Travoprost) 0.004 % Soln 1 Drop EACH EYE HS PRN Viibryd (Vilazodone) 40 Mg Tab 40 Mg PO DAILY Review of Systems Except as stated in HPI: all other systems reviewed are Neg Physical Exam Narrative GENERAL: female in mild respiratory distress SKIN: Warm and dry. HEAD: Normocephalic. EYES: No scleral icterus. No injection or drainage. ENT: Mucous membranes pink and moist. NECK: Supple CARDIOVASCULAR: Regular rate and rhythm. No murmur appreciated. RESPIRATORY: No accessory muscle use. Decreased throughout with wheezing, crackles in bilateral bases GASTROINTESTINAL: Abdomen soft, non-tender, nondistended. MUSCULOSKELETAL: Trace BLE edema. NEUROLOGICAL: Awake and alert. Normal speech. PSYCHIATRIC: Appropriate mood and affect; insight and judgment normal. Data Data Last Documented VS Vital Signs Date Time Temp Pulse Resp B/P Pulse Ox O2 Delivery O2 Flow Rate FiO2 03/26/16 10:30 73 16 169/68 96 Nasal Cannula 2 03/26/16 09:12 97.6 Orders Complete Blood Count With Diff (03/26/16 09:20) Basic Metabolic Panel (Bmp) (03/26/16 09:20) B-Type Natriuretic Peptide (03/26/16 09:20) Troponin I (03/26/16 09:20) Iv Access Insert/Monitor (03/26/16 09:20) Electrocardiogram (03/26/16 09:20) Ecg Monitoring (03/26/16 09:20) Oximetry (03/26/16 09:20) Oxygen Administration (03/26/16 09:20) Chest, Single Ap (03/26/16 09:20) Sodium Chloride 0.9% Flush (Ns Flush) (03/26/16 09:30) Albuterol-Ipratropium Neb (Duoneb Neb) (03/26/16 09:30) Consult Nephrology (03/26/16 ) Labs Laboratory Tests Test 03/26/16 09:30 White Blood Count 12.4 TH/MM3 Red Blood Count 3.31 MIL/MM3 Hemoglobin 10.6 GM/DL Hematocrit 32.0 % Mean Corpuscular Volume 96.9 FL Mean Corpuscular Hemoglobin 32.1 PG Mean Corpuscular Hemoglobin 33.2 % Concent Red Cell Distribution Width 16.4 % Platelet Count 280 TH/MM3 Mean Platelet Volume 7.9 FL Neutrophils (%) (Auto) 83.9 % Lymphocytes (%) (Auto) 11.0 % Monocytes (%) (Auto) 3.6 % Eosinophils (%) (Auto) 0.9 % Basophils (%) (Auto) 0.6 % Neutrophils # (Auto) 10.4 TH/MM3 Lymphocytes # (Auto) 1.4 TH/MM3 Monocytes # (Auto) 0.4 TH/MM3 Eosinophils # (Auto) 0.1 TH/MM3 Basophils # (Auto) 0.1 TH/MM3 CBC Comment DIFF FINAL Differential Comment Sodium Level 132 MEQ/L Potassium Level 5.8 MEQ/L Chloride Level 93 MEQ/L Carbon Dioxide Level 30.9 MEQ/L Anion Gap 8 MEQ/L Blood Urea Nitrogen 46 MG/DL Creatinine 5.81 MG/DL Estimat Glomerular Filtration 8 ML/MIN Rate Random Glucose 101 MG/DL Calcium Level 9.7 MG/DL Troponin I 0.08 NG/ML B-Type Natriuretic Peptide GREATER THAN 5000 PG/ML MDM Medical Decision Making Medical Screen Exam Complete: Yes Emergency Medical Condition: Yes Medical Record Reviewed: Yes Differential Diagnosis 85-year-old female with history of HTN, ESRD on dialysis Sunday/Sunday/Sunday , CAD with cardiac catheterization approximately 5 months ago with mild three- vessel disease, EF 45-50% here with shortness of breath since this morning, 4 hours. Differential includes volume overload, pulmonary edema, CHF, arrhythmia , electrolyte abnormality, symptomatic anemia, ACS, pneumonia. Narrative Course Patient placed on monitor, supplemental oxygen due to hypoxia. IV established and blood obtained. Portal chest x-ray was obtained that by my read shows pulmonary edema. Twelve-lead EKG shows sinus rhythm with evidence of LVH with left axis deviation. CBC, BMP, BNP, troponin and notable for WBC 12.4, hemoglobin 10.6, BUN 46, creatinine 5.1, potassium 5.8 consistent with her ESRD. Troponin slightly elevated 0.08 that this may be due to her ESRD. BNP greater than 5000. Patient does not make any urine and therefore her Lasix was not ordered. She remained slightly hypoxic, O2 sats 89% requiring oxygen and will be admitted for dialysis for pulmonary edema. Diagnosis Primary Impression: Pulmonary edema Qualified Code: J81.0 - Acute pulmonary edema Additional Impressions: ESRD (end stage renal disease) Hypoxia Admitting Information Admitting Physician Requests: Admit Acacia Moore MD Mar 26, 2016 09:27
[2016-03-26] MEDS ORDERED: SODIUM CHLORIDE 0.9% FLUSH 5 ML FLUSH IVF PRN ×2 (09:30→12:45)
[2016-03-26] MEDS: RESP: ALBUTEROL 2.5 MG/IPRATROPIUM 0.5 MG NEB (SCH) INH ×2 (09:32→09:33)
[2016-03-26] MEDS ORDERED: CARV12.52 PO (09:37)
[2016-03-26] MEDS ORDERED: ALPR.25 PO (09:37)
[2016-03-26] MEDS ORDERED: NEPHTAB3 PO (09:37)
[2016-03-26] MEDS ORDERED: THERTAB17 PO (09:37)
[2016-03-26] MEDS ORDERED: CINA30 PO (09:37)
[2016-03-26] MEDS ORDERED: SEVEL800 PO (09:37)
[2016-03-26 09:50] LABS: AUTOMATED NEUTROPHIL # 10.4 TH/MM3 (1.8-7.7); BASOPHIL # 0.1 TH/MM3 (0-0.2); BASOPHIL % 0.6 % (0.0-2.0); EOSINOPHIL # 0.1 TH/MM3 (0-0.4); EOSINOPHIL % 0.9 % (0.0-4.0); HEMO FLAGS DIFF FINAL; LYMPHOCYTE # 1.4 TH/MM3 (1.0-4.8); MEAN CELL VOLUME 96.9 FL (80.0-100.0); MEAN CORPUSCULAR HEMOGLOBIN 32.1 PG (27.0-34.0); MEAN CORPUSCULAR HGB CONC 33.2 % (32.0-36.0); MONO % 3.6 % (0.0-8.0); NEUT % 83.9 % (16.0-70.0); PLATELET COUNT 280 TH/MM3 (150-450); RED BLOOD COUNT 3.31 MIL/MM3 (4.00-5.30); RED CELL DISTRIBUTION WIDTH 16.4 % (11.6-17.2); WHITE BLOOD COUNT 12.4 TH/MM3 (4.0-11.0)
--- NOTE | 2016-03-26 09:59 | RADRPT ---
EXAM DATE/TIME: 03/26/2016 09:25 [facility] COMPARISON: CHEST SINGLE AP, December 20, 2015, 1:54. CHEST SINGLE AP, March 22, 2016, 6:51. INDICATIONS : Short of breath. MEDICAL HISTORY : Hypertension. Gastroesophageal reflux disease. CAD SURGICAL HISTORY : Coronary artery stent. ENCOUNTER: Initial ACUITY: 4 - 6 days PAIN SCORE: 0/10 LOCATION: Bilateral chest FINDINGS: Single AP view of the chest. Bilateral mild interstitial opacity and pulmonary vasculature indistinct ness suggesting mild pulmonary edema. Mild cardiac silhouette enlargement. No evidence of pleural eff usion or pneumothorax. CONCLUSION: Mild interstitial opacity suggesting mild pulmonary edema. Mild cardiac silhouette enlarg ement. Abraham Alas MD on March 26, 2016 at 9:56 Board Certified Radiologist. This report was verified electronically.
[2016-03-26 10:21] LABS: BICARBONATE 30.9 MEQ/L (21.0-32.0); POTASSIUM 5.8 MEQ/L (3.5-5.1)
[2016-03-26] MEDS ORDERED: SODIUM CHLORIDE 0.9% FLUSH 5 ML FLUSH FLUSH PRN (12:15)
[2016-03-26] MEDS ORDERED: NALOXONE HCL 0.4 MG/ML AMP IV PRN (12:15)
[2016-03-26] MEDS ORDERED: ALPRAZolam 0.25 MG TAB PO PRN (12:30)
[2016-03-26] MEDS ORDERED: SODIUM CHLOR 0.9% 1000 ML INJ 1,000 ML IV PRN ×3 (12:31)
--- NOTE | 2016-03-26 12:40 | PD.CONS ---
HPI Service Nephrology Consult Requested By Reason for Consult ESRD Primary Care Physician Ashlyn Mao MD History of Present Illness 85 year old female with CHF,ESRD, recent discharge from hospital came back in with CHF, shortness of breath and required oxygen,she goes on Hemodialysis on Sunday, Sunday and Sunday has a Rt Upper fistula and follows with Dr. 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 Past Medical History ESRD HTN CHF ANEMIA CAD Past Surgical History AVF Bilateral knee replacement Lt hip replacement 3 stents CAD Cataract Reported Medications Reported Meds & Active Scripts Active Megestrol Liq (Megestrol Acetate) 40 Mg/Ml Susp 800 Mg PO DAILY Lipitor (Atorvastatin Calcium) 20 Mg Tab 20 Mg PO HS Reported Nephro-Anne (B-Complex W/ C & Folic Acid) 1 Tab 1 Tab PO DAILY Sensipar (Cinacalcet) 30 Mg Tab 30 Mg PO DAILY Xanax (Alprazolam) 0.25 Mg Tab 0.25 Mg PO Q8H PRN Renvela (Sevelamer Carbonate) 800 Mg Tab 800 Mg PO TID Carvedilol 12.5 Mg Tab 12.5 Mg PO Q12HR Thera-M (Multiple Vitamins W/ Minerals) 1 Tab 1 Tab PO DAILY Tylenol (Acetaminophen) 325 Mg Cap 650 Mg PO Q4HR PRN Docusate Sodium 100 Mg Cap 100 Mg PO BID Eliquis (Apixaban) 2.5 Mg Tab 2.5 Mg PO BID Aspirin 81 Mg Tabdr 81 Mg PO DAILY Travatan Z Opth Drops (Travoprost) 0.004 % Soln 1 Drop EACH EYE HS PRN Viibryd (Vilazodone) 40 Mg Tab 40 Mg PO DAILY Active Ordered Medications Current Medications Medications (Trade) Dose Ordered Sig/Thierry Route Start Time Stop Time Status Last Admin (NS Flush) 2 ml UNSCH PRN IVF 03/26/16 09:30 (NS Flush) 2 ml UNSCH PRN FLUSH 03/26/16 12:15 (NS Flush) 2 ml BID FLUSH 03/26/16 21:00 (Tylenol) 650 mg Q4H PRN PO 03/26/16 13:00 (Zofran Inj) 4 mg Q6H PRN IVP 03/26/16 13:00 (Narcan Inj) 0.4 mg UNSCH PRN IV 03/26/16 12:15 (Xanax) 0.25 mg Q8H PRN PO 03/26/16 12:30 (Eliquis) 2.5 mg BID PO 03/26/16 21:00 (Ecotrin Ec) 81 mg DAILY PO 03/27/16 09:00 (Lipitor) 20 mg HS PO 03/26/16 21:00 (Coreg) 12.5 mg Q12HR PO 03/26/16 21:00 (Sensipar) 30 mg DAILY PO 03/27/16 09:00 (Colace) 100 mg BID PO 03/26/16 21:00 (Megace Liq) 800 mg DAILY PO 03/27/16 09:00 (Theragran M Tab) 1 tab DAILY PO 03/27/16 09:00 (Renvela) 800 mg TID PO 03/26/16 13:00 Non-Formulary Medication 1 tab DAILY PO 03/27/16 09:00 UNV Non-Formulary Medication 1 drop HS PRN EACH EYE 03/26/16 12:30 UNV Non-Formulary Medication 40 mg DAILY PO 03/27/16 09:00 UNV Family History noncontributory Social History denies smoking/ETOH Physical Exam Vital Signs Vital Signs Date Time Temp Pulse Resp B/P Pulse Ox O2 Delivery O2 Flow Rate FiO2 03/26/16 12:05 76 16 183/86 98 Nasal Cannula 2 03/26/16 10:30 73 16 169/68 96 Nasal Cannula 2 03/26/16 09:40 100 Nasal Cannula 2.00 03/26/16 09:35 96 Nasal Cannula 2 03/26/16 09:16 82 16 181/81 94 Nasal Cannula 2 03/26/16 09:12 97.6 92 18 181/81 89 Physical Exam GENERAL: Well-nourished, well-developed patient. SKIN: Warm and dry. HEAD: Normocephalic. EYES: No scleral icterus. No injection or drainage. NECK: Supple, trachea midline. No JVD or lymphadenopathy. CARDIOVASCULAR: Regular rate and rhythm without murmurs, gallops, or rubs. RESPIRATORY: Breath sounds With rales at bases GASTROINTESTINAL: Abdomen soft, non-tender, nondistended. EXTREMITIES: No cyanosis, or edema. Rt AVF NEUROLOGICAL: Awake, alert, and oriented x 3. Non-focal. Laboratory Laboratory Tests Test 03/26/16 09:30 White Blood Count 12.4 Red Blood Count 3.31 Hemoglobin 10.6 Hematocrit 32.0 Mean Corpuscular Volume 96.9 Mean Corpuscular Hemoglobin 32.1 Mean Corpuscular Hemoglobin 33.2 Concent Red Cell Distribution Width 16.4 Platelet Count 280 Mean Platelet Volume 7.9 Neutrophils (%) (Auto) 83.9 Lymphocytes (%) (Auto) 11.0 Monocytes (%) (Auto) 3.6 Eosinophils (%) (Auto) 0.9 Basophils (%) (Auto) 0.6 Neutrophils # (Auto) 10.4 Lymphocytes # (Auto) 1.4 Monocytes # (Auto) 0.4 Eosinophils # (Auto) 0.1 Basophils # (Auto) 0.1 CBC Comment DIFF FINAL Differential Comment Sodium Level 132 Potassium Level 5.8 Chloride Level 93 Carbon Dioxide Level 30.9 Anion Gap 8 Blood Urea Nitrogen 46 Creatinine 5.81 Estimat Glomerular Filtration 8 Rate Random Glucose 101 Calcium Level 9.7 Troponin I 0.08 B-Type Natriuretic Peptide GREATER THAN 5000 Result Diagram: 03/26/1692903/26/16929 Imaging Last Impressions Chest X-Ray 03/26/16919 Signed Impressions: Service Date/Time: Saturday, March 26, 2016 09:25 - CONCLUSION: Mild interstitial opacity suggesting mild pulmonary edema. Mild cardiac silhouette enlargement. Abraham Alas MD Assessment and Plan Problem List: (1) ESRD (end stage renal disease) Plan: Will do dialysis today and give Lasix 80 mg BP high she is M,W,F patient and will be curt on schedule. (2) Pulmonary edema Plan: HD planned (3) Cardiomyopathy Plan: severe reduction in EF 30-35% (4) Hypertension Plan: monitor it is high Problem Qualifiers (1) Pulmonary edema: Qualified Code: J81.0 - Acute pulmonary edema Jack Gibson MD Mar 26, 2016 12:40
[2016-03-26] MEDS ORDERED: ALBUMIN HUMAN 25% 25 GM/100 ML BAGP IV PRN (12:45)
[2016-03-26] MEDS ORDERED: diphenhydrAMINE HCL 25 MG CAP PO PRN (12:45)
[2016-03-26] MEDS ORDERED: ONDANSETRON HCL 4 MG/2 ML VIAL IV PRN (12:45)
[2016-03-26] MEDS ORDERED: MANNITOL 12.5 GM/50 ML VIAL IV PRN (12:45)
[2016-03-26] MEDS ORDERED: HEPARIN SODIUM - IV 10,000 UNITS/10 ML VIAL PRN (12:45)
[2016-03-26] MEDS ORDERED: GENTAMICIN SULFATE (DIALYSIS USE ONLY) 20 MG/2 ML VIAL IV PRN (12:45)
[2016-03-26] MEDS ORDERED: HEPARIN SODIUM - IV 10,000 UNITS/10 ML VIAL IVF PRN (12:45)
[2016-03-26] MEDS ORDERED: EPOETIN ALFA 10,000 UNITS/ML VIAL IV PRN (12:45)
[2016-03-26] MEDS ORDERED: cloNIDine HCL 0.1 MG TAB PO PRN (12:45)
[2016-03-26] MEDS ORDERED: GELATIN 12 MM/7 MM FOAM TOP PRN (12:45)
[2016-03-26] MEDS ORDERED: NITROGLYCERIN 0.4 MG SL 25 TABS/BTL SL PRN (12:45)
[2016-03-26] MEDS: SEVELAMER CARBONATE 800 MG TAB PO SCH ×2 (12:55→18:11)
[2016-03-26] MEDS ORDERED: ONDANSETRON HCL 4 MG/2 ML VIAL IVP PRN (13:00)
[2016-03-26] MEDS ORDERED: ACETAMINOPHEN 325 MG TAB PO PRN (13:00)
[2016-03-26] MEDS ORDERED: LATANOPROST 0.005% OPHT SOLN 2.5 ML BTL EACH EYE PRN (13:00)
[2016-03-26] MEDS ORDERED: FUROSEMIDE 100 MG/10 ML VIAL IV PUSH ONE (13:00)
[2016-03-26] MEDS: ACETAMINOPHEN 325 MG TAB PO PRN (13:13)
[2016-03-26] MEDS ORDERED: VIIBRYD 40 MG PO SCH (15:00)
[2016-03-26] MEDS: ACETAMINOPHEN/HYDROcodone 325 MG/5 MG TAB PO PRN (18:05)
[2016-03-26] MEDS: ATORVASTATIN 20 MG TAB PO SCH (21:51)
[2016-03-26] MEDS: APIXABAN 2.5 MG TABLET PO SCH (21:51)
[2016-03-26] MEDS: CARVEDILOL 12.5 MG TAB PO SCH (21:51)
[2016-03-26] MEDS: SODIUM CHLORIDE 0.9% FLUSH 5 ML FLUSH FLUSH SCH (21:51)
[2016-03-26] MEDS: DOCUSATE SODIUM 100 MG CAP PO SCH (21:51)
[2016-03-27] VITALS (7 sets, daily range): BP systolic 92–150; BP diastolic 50–72; PULSE 61–81; RESP 16–18; TEMP 97.7–99.3; O2SAT 92–99
[2016-03-27] MEDS: ACETAMINOPHEN 325 MG TAB PO PRN ×3 (06:42→19:58)
--- NOTE | 2016-03-27 07:31 | MH ---
cc: BAKARI LARA DATE OF ADMISSION 03/26/2016 DATE OF 1930 CHIEF COMPLAINT Acute onset shortness of breath. HISTORY OF THE PRESENT ILLNESS This is a pleasant 85-year-old black female who has had several hospital stays over the past few months. She is a end-stage renal disease patient, receives dialysis usually on Sunday, Sunday and Sunday. She was here this past week for some of the same symptoms. The patient was resting at home this weekend in her usual state of health and had a sudden onset of shortness of breath. She was dialyzed on Sunday which was two days ago and had no issues to my knowledge. She also noted some wheezing and had to sit straight up to breathe. The patient does note some mild confusion at times when these episodes hypoxia, occur. EMS was called. The patient was noted to be hypoxic in the mid 80s. On transport she was given albuterol times three and started feeling less short of breath and more aware of her surroundings. She does complain of exertional shortness of breath a good bit of the time. She denies any cough. No congestion. No chest pain at this time. The patient was evaluated in the emergency room. Nephrology was consulted and the patient received an extra hemodialysis treatment today. It was noted that the patient had an extra 3 liters of fluid removed today with dialysis and is scheduled for her routine dialysis in the morning. Currently the patient is alert, oriented, talkative, cooperative. Denies any shortness of breath at this time. Denies any frequent weight gain but has noted some weight loss over the past year which appears to be chronic. The patient denies any headache. Denies any nausea, vomiting, diarrhea or constipation. PAST MEDICAL HISTORY Medical history includes: 1. Anemia. 2. Arthritis. 3. Anxiety disorder. 4. Depression. 5. Cardiovascular disease with coronary artery disease. 6. Cardiac catheterization times three. 7. History of chest pain. 8. History of congestive heart failure. 9. Gastroesophageal reflux disease. 10. End-stage renal disease. 11. Right hip arthritis / disorder. 12. Anuric. 13. Cellulitis left arm. 14. Sleep apnea. 15. Pneumonia. 16. Aortic stenosis. 17. Cardiomyopathy. 18. History of MRSA. PAST SURGICAL HISTORY 1. Appendectomy. 2. Abdominal surgery. 3. Cardiac stents times three. 4. Left cataract removal. 5. Lithotripsy. 6. Left kidney stent. 7. Gynecologic surgery. 8. Hysterectomy. 9. Joint replacement, bilateral total hip. 10. Bilateral total knee. 11. Oral surgery. 12. Tonsillectomy. ALLERGIES DILAUDID. MORPHINE. MULTIDRUG RESISTANT ORGANISM. MRSA. MEDICATIONS Active medications: 1. Lipitor. 2. Megestrol liquid. Repeated medications: 1. Nephrovite. 2. Sensipar. 3. Xanax. 4. Renvela. 5. Coreg. 6. Thera-M multivitamin. 7. Tylenol. 8. Colace. 9. Eliquis. 10. Aspirin. 11. Vilazodone. 12. Ophthalmic drops, Travatan Z. SOCIAL HISTORY The patient is . Currently just moved in to the [facility] which is a supported living space. She has been there approximately one month. She has a daughter who is her medical cost consultant and lives close by and helps when the patient needs support on an outpatient basis. No tobacco use. No illicit drug use. Rare alcohol. FAMILY HISTORY N/A. REVIEW OF SYSTEMS A 14 point review was done. Positives noted are her anxiety disorder, shortness of breath, wheezing. Coughing negative. Other systems are negative or unremarkable. PHYSICAL EXAMINATION VITAL SIGNS: Temperature 98, pulse 67,m respiratory rate 16, blood pressure 105/48 and 154/75, O2 saturation 97% 2 liters nasal cannula. GENERAL: Slim, tall, black female looks younger than her stated age. Resting on a stretcher. Alert and oriented. Talkative. SKIN: Dry. Warm. No rashes. HEENT: Atraumatic, normocephalic. No scleral icterus. No drainage. Mucous membranes are pink and moist. NECK: Supple. Trachea is midline. CARDIOVASCULAR: Regular rate and rhythm. Systolic murmur. Grade 2/6 at the lower left sternal border. No rubs. No gallops. Regular rhythm and rate. LUNGS: Mild expiratory wheeze noted. Bibasilar rales posteriorly. No use of accessory muscles. ABDOMEN: Flat. Soft and nontender. Nondistended. Active bowel sounds in all four quadrants. MUSCULOSKELETAL: She has no edema in her lower extremities or her hands and arms. NEUROLOGICAL: She is awake and alert. Speech is clear. Insight is normal. Slightly anxiety. PSYCHIATRIC: Appropriate mood and affect. LABORATORY DATA WBC count 12.4, RBC 3.31, hemoglobin 10.6, hematocrit 32, platelet count 280. Neutrophil auto percentage 83.9. Chemistry sodium 132, potassium 5.8, chloride 93, carbon dioxide 30.9, anion gap 8. BUN 46, creatinine 5.81. GFR 8. Random glucose 101. Troponin 0.08. BNP greater than 5000. IMAGING For her chest x-ray shows mild interstitial opacities suggesting mild pulmonary edema, mild cardiac silhouette enlargement. ASSESSMENT AND PLAN 1. Pulmonary edema. 2. Dyspnea with wheezing. 3. End-stage renal disease. 4. Hypoxia. 5. Anemia. 6. Hyponatremia. 7. Elevated troponin level, rule out cardiac event or myocardial infarction. Our plan is to admit for observation. We will monitor her labs. With gentle hydration. Nephrology consultation for expert opinion. We will manage her end-stage renal disease and dialysis as well as monitor her labs. Reconcile her medications. Place her on a renal, healthy heart diet. Cardiac monitoring. Vital signs q.4h. 80 of Lasix IV once. The patient is scheduled for dialysis in the morning which will be her routine scheduled dialysis. The patient will have DVT prophylaxis with heparin, aspirin and the patient's own Eliquis. The patient received gentamicin 20 milligrams IV with dialysis. Xanax for her anxiety as needed. Consult cardiology for his expert opinion. The patient has had multiple admissions over the past few months and currently had three liters of fluid removed today right after admission with dialysis. The patient is a full code, full aggressive care. Dr. Lara and I visited the patient and we will continue to follow. Dictated by: DAI Franco Bakari Lara MD JP/KARINA /3:36 PM /7:31 AM PT SEEN AND EXAMINED ON DAY OF ADMISSION ABOVE CHART WAS REVIEWED IN DETAIL DW PT DW RN BARBARA LALA ABOUT PLAN OF CARE MTDD
[2016-03-27] MEDS: SEVELAMER CARBONATE 800 MG TAB PO SCH ×3 (08:07→16:20)
[2016-03-27] MEDS: SODIUM CHLORIDE 0.9% FLUSH 5 ML FLUSH FLUSH SCH ×2 (09:00→20:31)
--- NOTE | 2016-03-27 09:42 | HHI.NPPN ---
Objective Data Data 03/26/16 03/27/16 19:00 07:00 Intake Total 480 ml Output Total 3000 ml Balance -3000 ml 480 ml Intake Oral 480 ml Output Hemodialysis 3000 ml # Voids 0 Vital Signs Date Time Temp Pulse Resp B/P Pulse Ox O2 Delivery O2 Flow Rate FiO2 03/27/16 08:00 Nasal Cannula 2.00 03/27/16 04:00 99.3 78 18 150/72 95 03/27/16 00:00 99.3 78 17 142/69 92 03/26/16 20:45 Nasal Cannula 2.00 03/26/16 20:33 74 03/26/16 20:30 99.1 82 18 150/70 98 03/26/16 17:43 82 16 153/78 99 Nasal Cannula 2 03/26/16 15:40 81 16 149/67 100 Nasal Cannula 2 03/26/16 12:46 100 16 196/89 98 Nasal Cannula 2 03/26/16 12:05 76 16 183/86 98 Nasal Cannula 2 03/26/16 10:30 73 16 169/68 96 Nasal Cannula 2 -: 03/26/16 0930 03/26/16 0930 Assessment/Plan Problem List: (1) ESRD (end stage renal disease) Plan: seen during HD 3 L UF planned today, she had Hemodialysis yesterday as well and 3 L UF was done BP stable she is M,W,F patient and will be curt on schedule. (2) Pulmonary edema Plan: HD planned (3) Cardiomyopathy Plan: severe reduction in EF 30-35% (4) Hypertension Plan: monitor it is high Problem Qualifiers (1) Pulmonary edema: Qualified Code: J81.0 - Acute pulmonary edema Jack Gibson MD Mar 27, 2016 09:42
--- NOTE | 2016-03-27 12:58 | HHI.PR ---
Subjective Remarks Resting in bed Alert Feels weak and fatigued Tearful Appetite fair (Bharati Macedo) Objective Objective Results - Vital Signs Date Time Temp Pulse Resp B/P Pulse Ox O2 Delivery O2 Flow Rate FiO2 03/27/16 08:00 Nasal Cannula 2.00 03/27/16 04:00 99.3 78 18 150/72 95 03/27/16 00:00 99.3 78 17 142/69 92 03/26/16 20:45 Nasal Cannula 2.00 03/26/16 20:33 74 03/26/16 20:30 99.1 82 18 150/70 98 03/26/16 17:43 82 16 153/78 99 Nasal Cannula 2 03/26/16 15:40 81 16 149/67 100 Nasal Cannula 2 I/O 03/26/16 03/26/16 03/26/16 03/27/16 03/27/16 03/27/16 07:00 15:00 23:00 07:00 15:00 23:00 Intake Total 240 ml 240 ml Output Total 3000 ml 3000 ml Balance -3000 ml 240 ml 240 ml -3000 ml Intake Oral 240 ml 240 ml Output Hemodialysis 3000 ml 3000 ml # Voids 0 0 (Bharati Macedo) Result Diagram: 03/26/16 0930 03/26/16 0930 ROS General: Fatigue, Weakness, Other (tearful, 10 point ROS done positives noted weakness ,fatigue, shortness of breath, cough on respiration systems negative or unremarkable) Pulmonary: Cough (with deep breath), SOB (exertional) (Bharati Macedo) Physical Exam Physical Exam PHYSICAL EXAMINATION GENERAL: This is a well-developed, well-nourished female who appears to be in no acute distress at rest. She is alert and awake. HEAD: Normocephalic without any lesion or mass noted. Facial features appear symmetric. OROPHARYNGEAL: Oropharynx without erythema or edema. NECK: Supple. No nuchal rigidity or lymphadenopathy. Trachea midline without deviation. CARDIAC: Regular rhythm, regular rate, S1 and S2 are heard. Murmur systolic heard throughout precordium grade 3/6; no gallops or rubs. LUNGS: Diminished breath sounds especially in bases bilateral. No wheeze. No rhonchi ABDOMEN: Soft, nontender, no organomegaly or masses. Bowel sounds are heard in all four quadrants. No rebound. No guarding. EXTREMITIES: No edema. Pulses equal bilateral. No cyanosis. NEUROLOGICAL: Patient mood and affect appropriate. No focal deficit SKIN:Warm and moist, pale mucous membranes Objective Remarks I just feel really weak and washed out (Bharati Macedo) A/P Assessment and Plan ASSESSMENT AND PLAN 1. Pulmonary edema. 2. Dyspnea with wheezing. 3. End-stage renal disease. 4. Hypoxia. 5. Anemia. 6. Hyponatremia. 7. Elevated troponin level, rule out cardiac event or myocardial infarction. admit for observation. We will monitor her labs. gentle hydration. Nephrology consultation for expert opinion. We will manage her end-stage renal disease and dialysis as well as monitor her labs. Dialysis Sunday normally Reconcile her medications. renal, healthy heart diet. Cardiac monitoring. No acute dysrhythmias Vital signs q.4h. 80 of Lasix IV once. DVT prophylaxis with heparin, aspirin and the patient's own Eliquis. Xanax for her anxiety prn as needed. Consult cardiology for his expert opinion. The patient has had multiple admissions over the past few months and currently had three liters of fluid removed today right after admission with dialysis. The patient is a full code, full aggressive care. Patient has generalized complaints of weakness and fatigue. Not been able to stay on top of feeling well, and keep in her mobility. PT consult did for eval and treatment. Needs needs mobility and walking. Discussed With: Nurse, Family (patient), Other (Dr. Lara patient seen on his behalf) (Bharati Macedo) Assessment and Plan Patient seen and examined as above Discussed with patient Labs reviewed Appreciate nephrology input At dialysis yesterday and today Will monitor in house Caty consult Plan of care discussed with ELECTRONICS DESIGN ENGINEER (Leo Lara MD) Bharati Macedo Mar 27, 2016 12:58 Leo Lara MD Mar 27, 2016 15:34
[2016-03-27 13:02] LABS: AUTOMATED NEUTROPHIL # 3.5 TH/MM3 (1.8-7.7); BASOPHIL # 0.1 TH/MM3 (0-0.2); BASOPHIL % 1.1 % (0.0-2.0); EOSINOPHIL # 0.1 TH/MM3 (0-0.4); EOSINOPHIL % 2.4 % (0.0-4.0); HEMATOCRIT 28.8 % (35.0-46.0); LYMPH % 28.3 % (9.0-44.0); LYMPHOCYTE # 1.7 TH/MM3 (1.0-4.8); MEAN CELL VOLUME 97.1 FL (80.0-100.0); MEAN CORPUSCULAR HEMOGLOBIN 31.9 PG (27.0-34.0); MEAN CORPUSCULAR HGB CONC 32.9 % (32.0-36.0); MONO % 8.4 % (0.0-8.0); NEUT % 59.8 % (16.0-70.0); PLATELET COUNT 233 TH/MM3 (150-450); RED BLOOD COUNT 2.96 MIL/MM3 (4.00-5.30); RED CELL DISTRIBUTION WIDTH 16.2 % (11.6-17.2); WHITE BLOOD COUNT 5.9 TH/MM3 (4.0-11.0)
[2016-03-27 13:03] LABS: HEMO FLAGS DIFF FINAL
[2016-03-27 13:31] LABS: BICARBONATE 32.8 MEQ/L (21.0-32.0); POTASSIUM 3.8 MEQ/L (3.5-5.1)
[2016-03-27] MEDS: MULTIVITAMINS/MINERALS THERAPEUTIC TAB PO SCH (13:38)
[2016-03-27] MEDS: VITAMIN B CMPLX/VITC/FOLIC AC CAP PO SCH (13:38)
[2016-03-27] MEDS: APIXABAN 2.5 MG TABLET PO SCH ×2 (13:39→20:30)
[2016-03-27] MEDS: ASPIRIN EC 81 MG TABEC PO SCH (13:39)
[2016-03-27] MEDS: CINACALCET HYDROCHLORIDE 30 MG TAB PO SCH (13:39)
[2016-03-27] MEDS: DOCUSATE SODIUM 100 MG CAP PO SCH ×2 (13:39→20:30)
[2016-03-27] MEDS: MEGESTROL ACETATE SUSP 400 MG/10 ML CUP PO SCH (13:39)
[2016-03-27] MEDS: CARVEDILOL 12.5 MG TAB PO SCH ×2 (13:39→20:30)
--- NOTE | 2016-03-27 14:42 | EKG ---
Date Performed: 03/26/2016 Time Performed: 09:45:01 PTAGE: 85 years EKG: Sinus rhythm POSSIBLE LEFT ATRIAL ENLARGEMENT MARKED LEFT AXIS DEVIATION LEFT VENTRICULAR HYPERTROPHY AND ST-T CH BIJU ABNORMAL ECG PREVIOUS TRACING : 03/22/2016 19.29 DOCTOR: Dennys Rodriguez Interpretating Date/Time 03/27/2016 14:35:45
[2016-03-27] MEDS: ACETAMINOPHEN/HYDROcodone 325 MG/5 MG TAB PO PRN ×2 (14:51→20:31)
--- NOTE | 2016-03-27 14:51 | MB ---
cc: YESI JACKSON M.D. DATE OF CONSULTATION: 03/27/2016 HISTORY OF PRESENT ILLNESS This is a pleasant 85-year-old lady with history of multivessel coronary artery disease, endstage renal failure, status post cath about 5 months ago which showed mild three-vessel disease, EF 45-50%. She was recently admitted with shortness of breath. Last dialysis was Sunday. She woke up this morning severely short of breath. She denies noncompliance with medications or increased overt or insidious sodium intake. She is status post dialysis this morning. She does not really feel any better. She denies any cough or fevers. She denies chest pain, GI or bleeding, PND, orthopnea, near syncope or dizziness. PAST MEDICAL HISTORY Per history of present illness. 1. She has a history of anemia. 2. Anxiety. 3. Depression. 4. Peripheral vascular disease. 5. Renal artery stenosis. 6. Hypertension. 7. Sleep apnea. 8. Abdominal surgery. 9. Appendectomy. 10. Cataract surgery. 11. Nephrolithiasis. 12. Bilateral total hip and knee replacement. 13. Tonsillectomy. 14. Paroxysmal atrial fibrillation. SOCIAL HISTORY Rarely drinks alcohol. Denies tobacco use. ALLERGIES DILAUDID, MORPHINE AND MULTIDRUG RESISTANT ORGANISM. MEDICATION Her medications in the hospital: 1. Aspirin 81 mg daily. 2. Sensipar 30 mg daily. 3. Megace 800 mg daily. 4. Multivitamins. 5. Minerals. 6. Vitamin B complex. 7. Vitamin C. 8. Folic acid. 9. Eliquis 2.5 b.i.d. 10. Atorvastatin 20 at bedtime. 11. Carvedilol 12.5 q. 12 hours. 12. Docusate 100 b.i.d. Other medications also include: 1. Renvela 800 t.i.d. PHYSICAL EXAMINATION VITAL SIGNS: Blood pressure 150/72, pulse 78, respiratory rate 18, temperature 99.3, sats 95% on 2 liters nasal cannula. GENERAL: She is alert and oriented x 3, in no acute distress. NECK: Supple. No JVD or bruit. CARDIOVASCULAR: S1, S2. No murmurs, rubs or gallops. LUNGS: Notable for decreased air movement at the bases. ABDOMEN: Soft, nontender, nondistended with positive bowel sounds. EXTREMITIES: No lower extremity edema. IMAGING STUDIES Chest x-ray shows mild interstitial opacity suggesting mild pulmonary edema, mild cardiac silhouette enlargement. EKG Shows normal sinus rhythm at 77 beats per minute, left ventricular hypertrophy, nonspecific ST-T wave changes. LABORATORY DATA White count 12.4, hemoglobin 10.6, hematocrit 33.0, platelet count 233, sodium 132, potassium 5.8, chloride 93. BUN 46, creatinine 5.81. Troponin is 0.08. BNP is greater than 5000. DIAGNOSIS 1. Decompensated congestive heart failure. 2. Endstage renal failure. 3. Volume overload. 4. Hyponatremia 5. Hyperkalemia. 6. Non-STEMI. 7. Elevated white count. 8. Anemia. 9. Paroxysmal atrial fibrillation. 10. Peripheral vascular disease. 11. Depression. DISCUSSION At this point in time I think her troponin elevation is probably secondary to hypoxia and increased wall tension and also nonspecifically elevated due to end-stage renal failure. I doubt this is a primary obstructive event. The patient is not having any chest pain. Nevertheless, will continue her Eliquis and Coreg and Lipitor given her history of coronary artery disease. Volume status would be best managed by scheduled and p.r.n. dialysis. Will continue to follow. MD EFRA Tejeda/TLL /1:50 PM /2:27 PM
[2016-03-27] MEDS: ATORVASTATIN 20 MG TAB PO SCH (20:30)
[2016-03-28 04:26] VITALS: PULSE 76
[2016-03-28 05:32] VITALS: BP 111/62; PULSE 73; RESP 16; TEMP 97.2; O2SAT 96
[2016-03-28 08:00] VITALS: BP 127/60; PULSE 70; RESP 16; TEMP 98.7; O2SAT 98
[2016-03-28] MEDS: VITAMIN B CMPLX/VITC/FOLIC AC CAP PO SCH (08:54)
[2016-03-28] MEDS: SODIUM CHLORIDE 0.9% FLUSH 5 ML FLUSH FLUSH SCH (08:54)
[2016-03-28] MEDS: SEVELAMER CARBONATE 800 MG TAB PO SCH ×2 (08:54→13:00)
[2016-03-28] MEDS: CARVEDILOL 12.5 MG TAB PO SCH (08:54)
[2016-03-28] MEDS: CINACALCET HYDROCHLORIDE 30 MG TAB PO SCH (08:54)
[2016-03-28] MEDS: ASPIRIN EC 81 MG TABEC PO SCH (08:54)
[2016-03-28] MEDS: DOCUSATE SODIUM 100 MG CAP PO SCH (08:54)
[2016-03-28] MEDS: MEGESTROL ACETATE SUSP 400 MG/10 ML CUP PO SCH (08:55)
[2016-03-28] MEDS: APIXABAN 2.5 MG TABLET PO SCH (08:55)
[2016-03-28] MEDS: MULTIVITAMINS/MINERALS THERAPEUTIC TAB PO SCH (08:55)
--- NOTE | 2016-03-28 10:32 | HHI.NPPN ---
Objective Data Data 03/27/16 03/28/16 19:00 07:00 Intake Total 0 ml 180 ml Output Total 3000 ml 0 ml Balance -3000 ml 180 ml Intake Oral 180 ml IV Total 0 ml Output Urine Total 0 ml Hemodialysis 3000 ml # Bowel Movements 1 Vital Signs Date Time Temp Pulse Resp B/P Pulse Ox O2 Delivery O2 Flow Rate FiO2 03/28/16 08:00 98.7 70 16 127/60 98 03/28/16 05:32 97.2 73 16 111/62 96 03/28/16 04:26 76 03/27/16 23:37 97.7 61 16 92/52 96 03/27/16 20:10 Nasal Cannula 2.00 03/27/16 20:02 98.5 78 16 120/56 97 03/27/16 16:00 98.8 69 18 93/50 92 03/27/16 12:00 98.2 81 18 125/56 99 -: 03/27/16 1242 03/27/16 1242 Assessment/Plan Problem List: (1) ESRD (end stage renal disease) Plan: doing better, she states she is still weak emotionally, BP stable she is M,W,F patient and will be back on schedule. fu with [facility] Negrete d/w Dr. Grimm (2) Pulmonary edema Plan: HD done (3) Cardiomyopathy Plan: severe reduction in EF 30-35% (4) Hypertension Plan: monitor improved Problem Qualifiers (1) Pulmonary edema: Qualified Code: J81.0 - Acute pulmonary edema Jack Gibson MD Mar 28, 2016 10:31
--- NOTE | 2016-03-28 10:48 | HHI.PR ---
Subjective Interval History awake, alert and oriented no sob feels depressed because recurrent hospital admissions no fever s/p HD yesterday no other complaints Vitals/Results Intake & Output 03/27/16 03/27/16 03/28/16 15:00 23:00 07:00 Intake Total 0 ml 120 ml 60 ml Output Total 3000 ml 0 ml 0 ml Balance -3000 ml 120 ml 60 ml Intake Oral 120 ml 60 ml IV Total 0 ml Output Urine Total 0 ml 0 ml Hemodialysis 3000 ml # Bowel Movements 1 0 Vital Signs Vital Signs Date Time Temp Pulse Resp B/P Pulse Ox O2 Delivery O2 Flow Rate FiO2 03/28/16 08:00 98.7 70 16 127/60 98 03/28/16 05:32 97.2 73 16 111/62 96 03/28/16 04:26 76 03/27/16 23:37 97.7 61 16 92/52 96 03/27/16 20:10 Nasal Cannula 2.00 03/27/16 20:02 98.5 78 16 120/56 97 03/27/16 16:00 98.8 69 18 93/50 92 03/27/16 12:00 98.2 81 18 125/56 99 CBC/BMP: 03/27/16 1242 03/27/16 1242 Lab Results Laboratory Tests Test 03/27/16 12:42 White Blood Count 5.9 TH/MM3 Red Blood Count 2.96 MIL/MM3 Hemoglobin 9.5 GM/DL Hematocrit 28.8 % Mean Corpuscular Volume 97.1 FL Mean Corpuscular Hemoglobin 31.9 PG Mean Corpuscular Hemoglobin 32.9 % Concent Red Cell Distribution Width 16.2 % Platelet Count 233 TH/MM3 Mean Platelet Volume 8.1 FL Neutrophils (%) (Auto) 59.8 % Lymphocytes (%) (Auto) 28.3 % Monocytes (%) (Auto) 8.4 % Eosinophils (%) (Auto) 2.4 % Basophils (%) (Auto) 1.1 % Neutrophils # (Auto) 3.5 TH/MM3 Lymphocytes # (Auto) 1.7 TH/MM3 Monocytes # (Auto) 0.5 TH/MM3 Eosinophils # (Auto) 0.1 TH/MM3 Basophils # (Auto) 0.1 TH/MM3 CBC Comment DIFF FINAL Differential Comment Sodium Level 138 MEQ/L Potassium Level 3.8 MEQ/L Chloride Level 98 MEQ/L Carbon Dioxide Level 32.8 MEQ/L Anion Gap 7 MEQ/L Blood Urea Nitrogen 15 MG/DL Creatinine 2.61 MG/DL Estimat Glomerular Filtration 21 ML/MIN Rate Random Glucose 79 MG/DL Calcium Level 8.7 MG/DL Physical Exam General General Appearance: Well Developed, Well Nourished, No Acute Distress Eyes Eye Exam: Pupils Equal, Pupils Reactive Throat Throat Exam: Oral Mucosa Schaller & Moist Neck Neck Exam: Neck Supple, Trachea Midline Pulmonary Resp Exam: Clear Bilaterally, Breath Sounds Equal, No Distress Cardiology CV Exam: Regular, Normal Sinus Rhythm Gastrointestinal/Abdomen GI Exam: Soft, Non-Tender, Bowel Sounds Present Integumentary Skin Exam: Clear, Warm, Dry, Intact Extremeties Extremities Exam: No Edema Neurologic Neuro Exam: Alert, Awake, Oriented, Speech Clear, Moving All Extremities, No Focal Deficits Psychiatric Psych Exam: Appropriate Responses Assessment/Plan Assessment/Plan A/P Assessment and Plan ASSESSMENT AND PLAN 1. Pulmonary edema. 2. Dyspnea with wheezing. 3. End-stage renal disease. 4. Hypoxia. 5. Anemia. 6. Hyponatremia. 7. Elevated troponin level, rule out cardiac event or myocardial infarction. observation. Appreciate Nephrology input s/p HD on 03/26 and 03/27 neg 3 liters each time now back on MWF schedule patient reports compliance with salt and fluid intake renal, healthy heart diet. Cardiac monitoring. No acute dysrhythmias Vital signs q.4h. DVT prophylaxis with heparin, aspirin and the patient's own Eliquis. Xanax for her anxiety prn as needed. Appreciate Cardiology input. No further work up, continue current care. The patient is a full code, full aggressive care. PT consulted; patient refused to participate with PT yesterday d/w Nephrology ok to d/c home and resume HD per schedule will give lasix 40 mg po bid prn sob. patient reports she makes urine. discussed with patient Deya Grimm MD Mar 28, 2016 10:48
[2016-03-28] MEDS ORDERED: FURO40TA PO (10:51)
[2016-03-28 11:49] VITALS: O2SAT 96
[2016-03-28 11:50] VITALS: BP 97/53; PULSE 61; RESP 24; TEMP 98.8; O2SAT 96
--- NOTE | 2016-03-28 14:33 | PD.CARD.PN ---
Subjective Subjective Remarks asleep in nad Objective Vital Signs / I&O Vital Signs Date Time Temp Pulse Resp B/P Pulse Ox O2 Delivery O2 Flow Rate FiO2 03/28/16 11:50 98.8 61 24 97/53 96 03/28/16 11:49 96 Nasal Cannula 03/28/16 08:00 98.7 70 16 127/60 98 03/28/16 05:32 97.2 73 16 111/62 96 03/28/16 04:26 76 03/27/16 23:37 97.7 61 16 92/52 96 03/27/16 20:10 Nasal Cannula 2.00 03/27/16 20:02 98.5 78 16 120/56 97 03/27/16 16:00 98.8 69 18 93/50 92 I/O 03/27/16 03/27/16 03/27/16 03/28/16 03/28/16 03/28/16 07:00 15:00 23:00 07:00 15:00 23:00 Intake Total 240 ml 0 ml 120 ml 60 ml Output Total 3000 ml 0 ml 0 ml Balance 240 ml -3000 ml 120 ml 60 ml Intake Oral 240 ml 120 ml 60 ml IV Total 0 ml Output Urine Total 0 ml 0 ml Hemodialysis 3000 ml # Voids 0 # Bowel Movements 1 0 Laboratory GENERAL: SKIN: Warm and dry. HEAD: Normocephalic. EYES: No scleral icterus. No injection or drainage. NECK: Supple, trachea midline. No JVD or lymphadenopathy. CARDIOVASCULAR: Regular rate and rhythm without murmurs, gallops, or rubs. RESPIRATORY: Breath sounds equal bilaterally. No accessory muscle use. GASTROINTESTINAL: Abdomen soft, non-tender, nondistended. MUSCULOSKELETAL: No cyanosis, or edema. BACK: Nontender without obvious deformity. No CVA tenderness. Assessment and Plan Problem List: (1) Atrial fibrillation (2) CAD (coronary artery disease) (3) Elevated troponin (4) NSTEMI (non-ST elevated myocardial infarction) (5) Hyperlipidemia (6) Aortic stenosis (7) ESRD (end stage renal disease) (8) Hypertension (9) Cardiomyopathy Assessment and Plan 1.) CAD/cardiomyopathy/afib - clinically improved, volume management by dialysis , continue statin, Zohaib Cruz MD Mar 28, 2016 14:33
--- NOTE | 2016-03-28 17:38 | HHI.DS ---
Discharge Summary Admission Date Mar 26, 2016 at 10:50 Discharge Date: Mar 28, 2016 Admitting Diagnosis pulm edema, ESRD on HD, hypoxia Brief History This was a pleasant 85-year-old black female who has had several hospital stays over the past few months. She was a end-stage renal disease patient, received dialysis usually on Sunday, Sunday and Sunday. She was here this past week for some of the same symptoms. The patient was resting at home this weekend in her usual state of health and had a sudden onset of shortness of breath. She was dialyzed on Sunday which was two days ago and had no issues to my knowledge. She also noted some wheezing and had to sit straight up to breathe. The patient did note some mild confusion at times when these episodes hypoxia, occur. EMS was called. The patient was noted to be hypoxic in the mid 80s. On transport she was given albuterol times three and started feeling less short of breath and more aware of her surroundings. She does complain of exertional shortness of breath a good bit of the time. She denied any cough. No congestion. No chest pain at this time. CBC/BMP: 03/27/16 1242 03/27/16 1242 Significant Findings Laboratory Tests Test 03/26/16 03/27/16 09:30 12:42 White Blood Count 12.4 TH/MM3 (4.0-11.0) Red Blood Count 3.31 MIL/MM3 2.96 MIL/MM3 (4.00-5.30) (4.00-5.30) Hemoglobin 10.6 GM/DL 9.5 GM/DL (11.6-15.3) (11.6-15.3) Hematocrit 32.0 % 28.8 % (35.0-46.0) (35.0-46.0) Neutrophils (%) (Auto) 83.9 % (16.0-70.0) Neutrophils # (Auto) 10.4 TH/MM3 (1.8-7.7) Sodium Level 132 MEQ/L (136-145) Potassium Level 5.8 MEQ/L (3.5-5.1) Chloride Level 93 MEQ/L (98-107) Blood Urea Nitrogen 46 MG/DL (7-18) Creatinine 5.81 MG/DL 2.61 MG/DL (0.50-1.00) (0.50-1.00) Estimat Glomerular Filtration 8 ML/MIN (>89) 21 ML/MIN (>89) Rate Troponin I 0.08 NG/ML (0.02-0.05) B-Type Natriuretic Peptide GREATER THAN 5000 PG/ML (0-100) Monocytes (%) (Auto) 8.4 % (0.0-8.0) Carbon Dioxide Level 32.8 MEQ/L (21.0-32.0) Imaging Last Impressions Chest X-Ray 03/26/16 0920 Signed Impressions: Service Date/Time: Saturday, March 26, 2016 09:25 - CONCLUSION: Mild interstitial opacity suggesting mild pulmonary edema. Mild cardiac silhouette enlargement. Abraham Alas MD PE at Discharge Physical Exam PHYSICAL EXAMINATION GENERAL: This was a well-developed, well-nourished female who appears to be in no acute distress at rest. She was alert and awake. HEAD: Normocephalic without any lesion or mass noted. Facial features appear symmetric. OROPHARYNGEAL: Oropharynx without erythema or edema. NECK: Supple. No nuchal rigidity or lymphadenopathy. Trachea midline without deviation. CARDIAC: Regular rhythm, regular rate, S1 and S2 are heard. Murmur systolic heard throughout precordium grade 3/6; no gallops or rubs. LUNGS: Diminished breath sounds especially in bases bilateral. No wheeze. No rhonchi ABDOMEN: Soft, nontender, no organomegaly or masses. Bowel sounds are heard in all four quadrants. No rebound. No guarding. EXTREMITIES: No edema. Pulses equal bilateral. No cyanosis. NEUROLOGICAL: Patient mood and affect appropriate. No focal deficit SKIN:Warm and moist, pale mucous membranes Hospital Course The patient was evaluated in the emergency room. Nephrology was consulted and the patient received an extra hemodialysis treatment today. It was noted that the patient had an extra 3 liters of fluid removed today with dialysis and was scheduled for her routine dialysis in the morning. Currently the patient was alert, oriented, talkative, cooperative. Denied any shortness of breath at time of admission Denied any frequent weight gain but had noted some weight loss over the past year which appeared to be chronic. The patient denied any headache. Denied any nausea, vomiting, diarrhea or constipation . These diagnoses were used to treat patient during this admission for her plan of care. 1. Pulmonary edema. 2. Dyspnea with wheezing. 3. End-stage renal disease. 4. Hypoxia. 5. Anemia. 6. Hyponatremia. 7. Elevated troponin level, rule out cardiac event or myocardial infarction. Patient was admitted for observation. We monitored her labs and gave her gentle hydration. Nephrology consultation for expert opinion. They managed her end-stage renal disease and dialysis as well as monitor her labs. Dialysis Sunday normally. Patient was dialyzed on day of admission, Sunday, also. Reconciled her medications on admission and placed patient on renal, healthy heart diet. Cardiac monitoring throughout hospital stay. She had No acute dysrhythmias Vital signs q.4h., afebrile, normal trends on her pulse respiration and blood pressure 80 of Lasix IV once given in the ER, patient still does make urine. Intake and output through hospital stay DVT prophylaxis with heparin, aspirin and the patient's own Eliquis. Xanax for her anxiety prn as needed. Consult cardiology for his expert opinion. The patient has had multiple admissions over the past few months and currently had three liters of fluid removed today right after admission with dialysis. Patient needs her medications reevaluated later to her congestive heart failure. The patient is a full code, full aggressive care. Patient has generalized complaints of weakness and fatigue on day of admission. Not been able to stay on top of feeling well, and keep in her mobility. PT consult did for eval and treatment. Needs needs mobility and walking and supportive care. She has been tearful at times. Patient's plan of care was discussed daily with nurse practitioner, physician's in consult and 's treating her, patient, and case management. Our plan and goal was to stabilize her so she does not have to be hospitalized again in the near future. Patient is for outpatient treatment plan. Pt Condition on Discharge: Stable Discharge Disposition: Discharge Home Discharge Instructions DIET: Follow Instructions for: Heart Healthy Diet, Renal Failure Diet, Dialysis Diet Activities you can perform: Regular-No Restrictions New Medications: Furosemide (Furosemide) 40 Mg Tab 40 MG PO BID PRN SHORTNESS OF BREATH #60 Ref 0 TAB Continued Medications: Acetaminophen (Tylenol) 325 Mg Cap 650 MG PO Q4HR PRN PAIN Ref 0 CAP Alprazolam (Xanax) 0.25 Mg Tab 0.25 MG PO Q8H PRN ANXIETY Ref 0 TAB Apixaban (Eliquis) 2.5 Mg Tab 2.5 MG PO BID Blood Clot Prevention Ref 0 TAB Aspirin (Aspirin) 81 Mg Tabdr 81 MG PO DAILY Blood Clot Prevention TAB Atorvastatin (Lipitor) 20 Mg Tab 20 MG PO HS CAD #30 TAB B-Complex W/ C & Folic Acid (Nephro-Anne) 1 Tab 1 TAB PO DAILY Nutritional Supplement #30 Ref 0 TAB Carvedilol (Carvedilol) 12.5 Mg Tab 12.5 MG PO Q12HR #60 Ref 0 TAB Cinacalcet (Sensipar) 30 Mg Tab 30 MG PO DAILY #30 Ref 0 TAB Docusate Sodium (Docusate Sodium) 100 Mg Cap 100 MG PO BID Prevent Constipation #60 Ref 0 CAP Megestrol Liq (Megestrol Liq) 40 Mg/Ml Susp 800 MG PO DAILY POOR APPETITE #60 Ref 1 CONTAINER Multiple Vitamins W/ Minerals (Thera-M) 1 Tab 1 TAB PO DAILY Nutritional Supplement Ref 0 TAB Sevelamer Carbonate (Renvela) 800 Mg Tab 800 MG PO TID Control phosphorous levels #90 Ref 0 TAB Travoprost Opth Drops (Travatan Z Opth Drops) 0.004 % Soln 1 DROP EACH EYE HS PRN Glaucoma #1 Ref 0 BOTTLE Vilazodone (Viibryd) 40 Mg Tab 40 MG PO DAILY Control Depression #30 Ref 0 TAB Additional Information She is to follow-up with her PCP in 1-2 weeks 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
[2016-06-08] MEDS ORDERED: ALPR.25 PO ×2 (18:36)
[2016-06-08] MEDS ORDERED: ULTR50TA5 PO (18:36)
[2016-06-08] MEDS ORDERED: CEPH-460 PO (22:57)
== END 2016-03-28 15:12 | disposition home or self-care (01) ==
LOC: NEPC 09:08 → NEDA 10:50 → INTOOBSV 10:50 → N04B 20:01
PROVIDERS: ADMIT Specialist; ATTEND Specialist
DX: J81.0 Acute pulmonary edema (principal); I13.2 Hypertensive heart and chronic kidney disease with heart failure and with stage 5 chronic kidney disease, or end stage renal disease; I50.9 Heart failure, unspecified; N18.6 End stage renal disease; R09.02 Hypoxemia; E87.1 Hypo-osmolality and hyponatremia; R79.89 Other specified abnormal findings of blood chemistry; R06.00 Dyspnea, unspecified; R06.2 Wheezing; D64.9 Anemia, unspecified; I25.10 Atherosclerotic heart disease of native coronary artery without angina pectoris; I42.9 Cardiomyopathy, unspecified; G47.30 Sleep apnea, unspecified; Z99.2 Dependence on renal dialysis; Z95.5 Presence of coronary angioplasty implant and graft
CPT/HCPCS: 71010; 80048; 83880; 84484; 85025; 90935; 93005; 94664; 96374; 99285; G0378; J7030; Q4081

== ENCOUNTER 2016-04-03 10:40 | Inpatient (IN) | payer MEDICARE, BC ==
[2016-04-03] VITALS (7 sets, daily range): BP systolic 121–190; BP diastolic 62–79; PULSE 64–78; RESP 17–21; TEMP 98.4–98.8; O2SAT 96–98
[~2016-04-03] VITALS: Ht 172.7 cm; Wt 60.8 kg
[~2016-04-03 10:40] MED LIST changes: +ALPR.25 PO; -ALPR0.25 PO; +CARV12.52 PO; -CARV6.25 PO; +CINA30 PO; +FURO40TA PO; -LEVO50TA4 PO; -MULT-135 PO; +NEPHTAB3 PO; +SEVEL800 PO; +THERTAB17 PO
--- NOTE | 2016-04-03 11:40 | PD ---
HPI Chief Complaint: Chest Pain Time Seen by Provider: 11:34 Travel History International Travel<30 days: No Contact w/Intl Traveler<30days: No Traveled to known affect area: No History of Present Illness HPI 85-year-old female that presents to the ED for evaluation of chest pain. Per patient she was getting dialysis which she gets every Sunday and Sunday and during her dialysis she developed severe sharp pain in her chest. Per patient and shortness of breath with it. She does have a history of prior stents in her heart. Per patient she follows with Dr. Valentin. The patient the pain was different from her previous because he was more severe and sharp. Patient actually has been here twice this month for similar complaints in the past. Patient has a chronic history of ESRD as well as hypertension and previous pulmonary edema and fluid overload as well as previous CAD. Patient states that currently she has no chest pain. She was given nitroglycerin by ambulance on the way here with what appears to be good results. She does have allergies to morphine and Dilaudid. She denies being able to make urine. Per patient and her pain was severe 10 out of 10. Does not radiate. PFSH Past Medical History Anemia: Yes Arthritis: Yes Asthma: No Blood Disorders: No Anxiety: Yes Depression: Yes Heart Rhythm Problems: Yes Cancer: No Cardiac Catheterization: Yes (X3) Cardiovascular Problems: Yes (3 STENTS) High Cholesterol: No Chest Pain: Yes Congestive Heart Failure: Yes COPD: No Coronary Artery Disease: Yes Diabetes: No Endocrine: No Gastrointestinal Disorders: Yes (HEART BURN) GERD: Yes Genitourinary: Yes (ESRD - ON DIALYSIS) Hypertension: Yes Immune Disorder: No Implanted Vascular Access Dvce: Yes Musculoskeletal: Yes (LEFT HIP) Neurologic: Yes Psychiatric: Yes Reproductive: No Respiratory: No Integumentary: Yes (CELLULITIS L ARM) Immunizations Current: Yes Migraines: Yes Pneumonia: Yes Renal Failure: Yes Sleep Apnea: Yes (HAD CPAP IN PAST) Thyroid Disease: No : 4 Para: 0 Past Surgical History Abdominal Surgery: Yes Appendectomy: Yes Arteriovenous Shunt: Yes (RUE) Body Medical Devices: 3 CARDIAC STENTS, KIDNEY STENT, HX R CHEST DIALYSIS CATH Coronary Stent: Yes (X3) Eye Surgery: Yes (L CATARACT REMOVED) Genitourinary Surgery: Yes (STONES REMOVED, L KIDNEY STENT X3) Gynecologic Surgery: Yes (HYSTERECTOMY, KIDNEY STONE REMOVAL) Hysterectomy: Yes Joint Replacement: Yes (BILAT TOTAL HIP, BILAT TOTAL KNEE) Oral Surgery: Yes Tonsillectomy: Yes Other Surgery: Yes Social History Alcohol Use: Yes (RARE) Tobacco Use: No Substance Use: No Allergies-Medications (Allergen,Severity, Reaction): Coded Allergies: Dilaudid (Verified Allergy, Severe, ANAPHYLACTIC, 04/03/16) Morphine (Verified Allergy, Severe, ANAPHYLACTIC, 04/03/16) *MDRO Multi-Drug Resistant Organism (Verified Adverse Reaction, Unknown, ) 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 Reported Meds & Prescriptions Reported Meds & Active Scripts Active Furosemide 40 Mg Tab 40 Mg PO BID PRN Megestrol Liq (Megestrol Acetate) 40 Mg/Ml Susp 800 Mg PO DAILY Lipitor (Atorvastatin Calcium) 20 Mg Tab 20 Mg PO HS Reported Nephro-Anne (B-Complex W/ C & Folic Acid) 1 Tab 1 Tab PO DAILY Sensipar (Cinacalcet) 30 Mg Tab 30 Mg PO DAILY Xanax (Alprazolam) 0.25 Mg Tab 0.25 Mg PO Q8H PRN Renvela (Sevelamer Carbonate) 800 Mg Tab 800 Mg PO TID Carvedilol 12.5 Mg Tab 12.5 Mg PO Q12HR Thera-M (Multiple Vitamins W/ Minerals) 1 Tab 1 Tab PO DAILY Tylenol (Acetaminophen) 325 Mg Cap 650 Mg PO Q4HR PRN Docusate Sodium 100 Mg Cap 100 Mg PO BID Eliquis (Apixaban) 2.5 Mg Tab 2.5 Mg PO BID Aspirin 81 Mg Tabdr 81 Mg PO DAILY Travatan Z Opth Drops (Travoprost) 0.004 % Soln 1 Drop EACH EYE HS PRN Viibryd (Vilazodone) 40 Mg Tab 40 Mg PO DAILY Review of Systems General / Constitutional: No: Fever, Chills, Weight Gain, Weight Loss, Other Eyes: No: Diploplia, Blurred Vision, Photophobia, Drainage, Redness, Foreign Body Sensation, Pain, Tearing, Blind Spots, Visual changes, Blindness, Other HENT: No: Headaches, Vertigo, Lightheadedness, Sore Throat, Rhinitis, Rhinorrhea, Congestion, Nosebleed, Neck Stiffness, Neck Pain, Masses, Gingival Bleeding, Dental Difficulties, Ear Discharge, Earache, Other Cardiovascular: Positive: Chest Pain or Discomfort, Edema, No: Palpitations, Irregular Rhythm, Tachycardia, Diaphoresis, Syncope, Dyspnea on exertion, Varicosities, Cyanosis, Varicosities, Phlebitis, Claudication, Other Respiratory: Positive: Shortness of Breath, No: Cough, Wheezing, Sneezing, Orthopnea, Hemoptysis, Stridor, Night Sweats, Pleuritic Pain, Other Gastrointestinal: No: Nausea, Vomiting, Diarrhea, Abdominal Pain, Hematemesis, Hematochezia, Constipation, Changes in Bowel Habits, Indigestion, Dysphagia, Loss of Appetite, Other Genitourinary: No: Urgency, Frequency, Dysuria, Nocturia, Hematuria, Decreased Urinary Output, Oliguria, Hesitancy, Dribbling, Incontinence, Pelvic Pain, Flank Pain, Dyspareunia, Discharge, Dysmenorrhea, Menorrhagia, Metorrhagia, Vaginal Bleeding, Other Musculoskeletal: No: Myalgias, Arthralgias, Limited ROM, Weakness, Cramping, Edema, Pain, Atrophy, Other Skin: No Rash, No Itching, No Dryness, No Lumps, No Hives, No Change in Pigmentation, No Change in nails, No Alopecia, No Lesions, No Breast Lumps, No Breast Tenderness, No Breast Swelling, No Other Neurologic: No: Weakness, Dizziness, Syncope, Focal Abnormalities, Coordination Problem, Tremor, Ataxia, Headache, Change in Mentation, Slurred Speech, Paresthesia, Incontinence, Seizures, Sensory Disturbance, Other Psychiatric: No: Anxiety, Depression, Suicidal Ideations, Disorder of Thought, Mood Disorder, Substance Abuse, Homicidal Ideation, Other Endocrine: No: Heat Intolerance, Cold Intolerance, Polyuria, Polydipsia, Other Hematologic/Lymphatic: No: Easy Bruising, Lymph Node Enlargement, Other Physical Exam Narrative GENERAL: SKIN: Warm and dry. HEAD: Atraumatic. Normocephalic. EYES: Pupils equal and round. No scleral icterus. No injection or drainage. ENT: No nasal bleeding or discharge. Mucous membranes pink and moist. Tongue is midline. No uvula deviation. NECK: Trachea midline. No JVD. CARDIOVASCULAR: Regular rate and rhythm. No murmurs, S3, S4. Chest pain is not reproducible with touch RESPIRATORY: No accessory muscle use. Clear to auscultation. Breath sounds equal bilaterally. GASTROINTESTINAL: Abdomen soft, non-tender, nondistended. Hepatic and splenic margins not palpable. MUSCULOSKELETAL: Extremities without clubbing, cyanosis, or edema. No obvious deformities. Full range of motion of the upper and lower extremities bilaterally. 2+ pulses bilaterally. Patient does have a fistula on the right arm and no sign of acute disease in this area. NEUROLOGICAL: Awake and alert. No obvious cranial nerve deficits. Motor grossly within normal limits. Five out of 5 muscle strength in the arms and legs. Normal speech. PSYCHIATRIC: Appropriate mood and affect; insight and judgment normal. Data Data Last Documented VS Vital Signs Date Time Temp Pulse Resp B/P Pulse Ox O2 Delivery O2 Flow Rate FiO2 04/03/16 11:28 18 98 Room Air 04/03/16 11:14 70 04/03/16 11:06 98.7 137/64 Orders Electrocardiogram (04/03/16 ) Complete Blood Count With Diff (04/03/16 11:18) Comprehensive Metabolic Panel (04/03/16 11:18) Troponin I (04/03/16 11:18) B-Type Natriuretic Peptide (04/03/16 11:18) Prothrombin Time / Inr (Pt) (04/03/16 11:18) Act Partial Throm Time (Ptt) (04/03/16 11:18) Chest, Single Ap (04/03/16 11:18) Iv Access Insert/Monitor (04/03/16 11:18) Ecg Monitoring (04/03/16 11:18) Oximetry (04/03/16 11:18) Troponin I (04/03/16 13:50) Admit Order (Ed Use Only) (04/03/16 13:56) Place In Observation (04/03/16 ) Vital Signs (Adult) Q4H (04/03/16 13:56) Activity Bed Rest (04/03/16 13:56) [employer] / Telemetry .CONTINUOUS (04/03/16 13:56) Intake + Output TRISHA.QSHIFT (04/03/16 13:56) Diet Renal (04/03/16 Lunch) Sodium Chloride 0.9% Flush (Ns Flush) (04/03/16 14:00) Sodium Chloride 0.9% Flush (Ns Flush) (04/03/16 21:00) Acetaminophen (Tylenol) (04/03/16 14:00) Ondansetron Inj (Zofran Inj) (04/03/16 14:00) Basic Metabolic Panel (Bmp) (04/04/16 06:00) Complete Blood Count With Diff (04/04/16 06:00) Troponin I (04/03/16 13:56) Troponin I (04/03/16 19:56) Resp Oxygen Merlin C Titrat 1-4 L (04/03/16 ) Heparin Inj (Heparin Inj) (04/03/16 14:00) Naloxone Inj (Narcan Inj) (04/03/16 14:00) Consult Cardiology (04/03/16 ) Labs Laboratory Tests Test 04/03/16 11:50 White Blood Count 5.1 TH/MM3 Red Blood Count 3.17 MIL/MM3 Hemoglobin 10.3 GM/DL Hematocrit 31.0 % Mean Corpuscular Volume 97.7 FL Mean Corpuscular Hemoglobin 32.4 PG Mean Corpuscular Hemoglobin 33.1 % Concent Red Cell Distribution Width 16.6 % Platelet Count 257 TH/MM3 Mean Platelet Volume 7.8 FL Neutrophils (%) (Auto) 66.9 % Lymphocytes (%) (Auto) 19.8 % Monocytes (%) (Auto) 8.7 % Eosinophils (%) (Auto) 3.2 % Basophils (%) (Auto) 1.4 % Neutrophils # (Auto) 3.4 TH/MM3 Lymphocytes # (Auto) 1.0 TH/MM3 Monocytes # (Auto) 0.4 TH/MM3 Eosinophils # (Auto) 0.2 TH/MM3 Basophils # (Auto) 0.1 TH/MM3 CBC Comment DIFF FINAL Differential Comment Prothrombin Time 11.5 SEC Prothromb Time International 1.0 RATIO Ratio Activated Partial 29.6 SEC Thromboplast Time Sodium Level 134 MEQ/L Potassium Level 3.6 MEQ/L Chloride Level 100 MEQ/L Carbon Dioxide Level 25.3 MEQ/L Anion Gap 9 MEQ/L Blood Urea Nitrogen 15 MG/DL Creatinine 3.40 MG/DL Estimat Glomerular Filtration 15 ML/MIN Rate Random Glucose 104 MG/DL Calcium Level 7.8 MG/DL Total Bilirubin 0.5 MG/DL Aspartate Amino Transf 16 U/L (AST/SGOT) Alanine Aminotransferase 14 U/L (ALT/SGPT) Alkaline Phosphatase 89 U/L Troponin I 0.08 NG/ML B-Type Natriuretic Peptide 2639 PG/ML Total Protein 7.2 GM/DL Albumin 3.3 GM/DL MDM Medical Decision Making Medical Screen Exam Complete: Yes Emergency Medical Condition: Yes Medical Record Reviewed: Yes Interpretation(s) EKG shows sinus rhythm with no sign of acute ischemia or arrhythmia read by me and attending. CBC & BMP Diagram 04/03/16 11:50 troponin negative Chest x-ray showed chronic cardiomegaly but no other acute disease. No obvious pulmonary edema Differential Diagnosis Chest pain versus pulmonary edema versus hypertension versus ESRD versus and STEMI versus normal exam versus coronary artery disease Narrative Course 85-year-old female that presents to the ED for evaluation of chest pain. Patient was properly examined and was found to have signs and symptoms consistent with appears to be chest pain. Unclear etiology. She does have risk factors for heart disease although I believe this is less likely secondary to patient having been here twice already for heart disease and n STEMI just in the 19 with no changes in her care other than continuation of her ESRD. She has had pulmonary edema in the past and I am concerned about this. Labs and imaging were done. Labs and imaging were essentially unremarkable other than elevated troponin of 0.08. Also elevated BNP. For the most part her troponin appears to be stable from last week. He recommends speaking with the patient's molder fitting Dr. Valentin. I spoke on the phone with Dr. Valentin who stated that he will come here and see the patient. Dr. Valentin recommends admission for obs and reevaluation. [facility] hospitalist was contacted. Dr. Grimm agrees to ADMISSION FOR THE CHEST PAIN. Procedures EKG Prior to Arrival: No Diagnosis Primary Impression: Chest pain Qualified Code: R07.9 - Chest pain, unspecified type Additional Impressions: Elevated troponin ESRD (end stage renal disease) Admitting Information Admitting Physician Requests: Observation Yared Flynn Apr 03, 2016 11:40
[2016-04-03 12:05] LABS: AUTOMATED NEUTROPHIL # 3.4 TH/MM3 (1.8-7.7); BASOPHIL # 0.1 TH/MM3 (0-0.2); BASOPHIL % 1.4 % (0.0-2.0); EOSINOPHIL # 0.2 TH/MM3 (0-0.4); EOSINOPHIL % 3.2 % (0.0-4.0); HEMO FLAGS DIFF FINAL; LYMPH % 19.8 % (9.0-44.0); MEAN CELL VOLUME 97.7 FL (80.0-100.0); MEAN CORPUSCULAR HEMOGLOBIN 32.4 PG (27.0-34.0); MEAN CORPUSCULAR HGB CONC 33.1 % (32.0-36.0); MONO % 8.7 % (0.0-8.0); NEUT % 66.9 % (16.0-70.0); PLATELET COUNT 257 TH/MM3 (150-450); RED BLOOD COUNT 3.17 MIL/MM3 (4.00-5.30); RED CELL DISTRIBUTION WIDTH 16.6 % (11.6-17.2); WHITE BLOOD COUNT 5.1 TH/MM3 (4.0-11.0)
[2016-04-03 12:16] LABS: APTT (PATIENT) 29.6 SEC (24.3-30.1); PROTHROMBIN TIME - PATIENT 11.5 SEC (9.8-11.6)
[2016-04-03 12:37] LABS: ANION GAP 9 MEQ/L (5-15); AST (GOT) 16 U/L (15-37); BICARBONATE 25.3 MEQ/L (21.0-32.0); BLOOD UREA NITROGEN 15 MG/DL (7-18); CHLORIDE 100 MEQ/L (98-107); GLOMERULAR FILTRATION RATE 15 ML/MIN (>89); POTASSIUM 3.6 MEQ/L (3.5-5.1); SODIUM (NA) 134 MEQ/L (136-145)
[2016-04-03 12:41] LABS: ALKALINE PHOSPHATASE 89 U/L (45-117); ALT (GPT) 14 U/L (10-53); TOTAL BILIRUBIN ADULT 0.5 MG/DL (0.2-1.0)
--- NOTE | 2016-04-03 12:53 | RADRPT ---
EXAM DATE/TIME: 04/03/2016 11:26 [facility] COMPARISON: CHEST SINGLE AP, March 26, 2016, 9:25. INDICATIONS: Chest pains x1 day, 3 cardiac stents. MEDICAL HISTORY: Hypertension. Myocardial infarction. SURGICAL HISTORY: Peripheral vascular stent. ENCOUNTER: Initial ACUITY: 1 day PAIN SCORE: 6/10 LOCATION: Bilateral chest FINDINGS: Heart is enlarged. Minimal parenchymal changes are seen in the left base with some air bronchograms. Right lung is clear. There is some peritracheal fullness on the right. This appears to have progressed in the interval. CONCLUSION: Abnormal chest ass described above. Ryne Hanna MD FACR on April 03, 2016 at 12:49 Board Certified Radiologist. This report was verified electronically.
[2016-04-03] MEDS ORDERED: ONDANSETRON HCL 4 MG/2 ML VIAL IVP PRN (14:00)
[2016-04-03] MEDS ORDERED: NALOXONE HCL 0.4 MG/ML AMP IV PRN (14:00)
[2016-04-03] MEDS ORDERED: SODIUM CHLORIDE 0.9% FLUSH 5 ML FLUSH FLUSH PRN (14:00)
[2016-04-03] MEDS ORDERED: HEPARIN SODIUM - SQ 10,000 UNITS/ML VIAL SQ SCH (15:00)
--- NOTE | 2016-04-03 16:14 | HHI.HP ---
HPI Service [facility] Primary Care Physician Ashlyn Mao MD Admission Diagnosis chest pain, R/o ACS, positive troponin, ESRD Diagnoses: Chief Complaint: chest pain (Garima Neely) Travel History International Travel<30 Days: No Contact w/Intl Traveler <30 Da: No Traveled to Known Affected Are: No (Garima Neely) History of Present Illness This is a pleasant 85-year-old female patient with a past medical history which includes arthritis, anxiety/depression, CAD status post cardiac stents, hypertension, GERD, cellulitis of the left arm, pneumonia, end-stage renal disease on hemodialysis, sleep apnea does not her CPAP, hypothyroidism, cardiomyopathy, CHF, valvular heart disease. Patient presented to the emergency room complaining of chest pain. Patient is well-known to our services , was recently admitted from 03/26/2016 to 03/28/2016 for chest pain, evaluated by cardiology and found positive for non-STEMI secondary to demand. Patient is a poor historian, information is obtained from the medical record and she is able to provide some details. Patient indicated that she developed sharp pain that then became pressure, localized over her left breast non-radiating, not associated with any shortness of breath, no nausea, no diaphoresis. Pain went away on its own. Chest discomfort recur while she was having dialysis. She is on a Sunday schedule. [employer] Teacher is Dr. Valentin. As in previous admission, troponin was noted elevated. Dr. Valentin was called from the emergency room and requested admission to medical services and overnight admission for observation. It's unclear if patient was able to finish dialysis treatment. Her BNP is elevated. She does not appear in any respiratory distress. Patient is very anxious and tearful, she is upset about her ED experience with nursing staff. She doesn't want to elaborate. When I asked if she had finished her treatment, she says "I don't have any dialysis. 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 When I questioned her orientation, she became more upset. She was able to provide the name of the hospital, she's not sure about the year. She knows that she spoke to her supervisor paper machine Dr. Valentin. During previous admissions, patient has been very tearful and anxious about her decline in health. A few months ago she was living at home and now lives in a assisted living facility. Patient is admitted for further evaluation and treatment. (Garima Neely) Review of Systems ROS Limitations: Poor Historian Cardiovascular: COMPLAINS OF: Chest pain Psychiatric: COMPLAINS OF: Anxiety, Confusion (Garima Neely) Past Family Social History Past Medical History arthritis, anxiety/depression, CAD status post cardiac stents, hypertension, GERD, cellulitis of the left arm, pneumonia, end-stage renal disease on hemodialysis, sleep apnea does not her CPAP, hypothyroidism, cardiomyopathy, valvular disease, aortic stenosis, anxiety, MRSA infection axilla Past Surgical History Hysterectomy, appendectomy, right upper extremity AV fistula, cardiac stent 3, stent in the left kidney, left cataract removed, bilateral hip replacement, bilateral knee replacements, tonsillectomy, cardiac cath 2015 no PCI Reported Medications Reported Meds & Active Scripts Active Furosemide 40 Mg Tab 40 Mg PO BID PRN Megestrol Liq (Megestrol Acetate) 40 Mg/Ml Susp 800 Mg PO DAILY Lipitor (Atorvastatin Calcium) 20 Mg Tab 20 Mg PO HS Reported Nephro-Anne (B-Complex W/ C & Folic Acid) 1 Tab 1 Tab PO DAILY Sensipar (Cinacalcet) 30 Mg Tab 30 Mg PO DAILY Xanax (Alprazolam) 0.25 Mg Tab 0.25 Mg PO Q8H PRN Renvela (Sevelamer Carbonate) 800 Mg Tab 800 Mg PO TID Carvedilol 12.5 Mg Tab 12.5 Mg PO Q12HR Thera-M (Multiple Vitamins W/ Minerals) 1 Tab 1 Tab PO DAILY Tylenol (Acetaminophen) 325 Mg Cap 650 Mg PO Q4HR PRN Docusate Sodium 100 Mg Cap 100 Mg PO BID Eliquis (Apixaban) 2.5 Mg Tab 2.5 Mg PO BID Aspirin 81 Mg Tabdr 81 Mg PO DAILY Travatan Z Opth Drops (Travoprost) 0.004 % Soln 1 Drop EACH EYE HS PRN Viibryd (Vilazodone) 40 Mg Tab 40 Mg PO DAILY (Garima Neely) Allergies: Coded Allergies: Dilaudid (Verified Allergy, Severe, ANAPHYLACTIC, 04/03/16) Morphine (Verified Allergy, Severe, ANAPHYLACTIC, 04/03/16) *MDRO Multi-Drug Resistant Organism (Verified Adverse Reaction, Unknown, ) 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 Active Ordered Medications Inpatient Medications Acetaminophen (Tylenol) 650 mg Q4H PRN PO TEMP > 100.4; Start 04/03/16 at 14:00 Heparin Sodium (Porcine) (Heparin Inj) 5,000 units Q12H SQ ; Start 04/03/16 at 15:00 IV Flush (NS Flush) 2 ml BID FLUSH ; Start 04/03/16 at 21:00 Naloxone HCl (Narcan Inj) 0.4 mg UNSCH PRN IV SEE LABEL COMMENTS; Start at 14:00 Ondansetron HCl (Zofran Inj) 4 mg Q6H PRN IVP NAUSEA OR VOMITING; Start at 14:00 Family History Mother at 94 secondary to age Father at 56 secondary to leukemia Social History Patient lives at [facility] now, has family who lives close by No ETOH use Denies tobacco use at this time quit smoking 40 years ago Denies illicit drug use Health has declined in the last year, less active, uses walker (Garima Neely) Physical Exam Vital Signs Vital Signs Date Time Temp Pulse Resp B/P Pulse Ox O2 Delivery O2 Flow Rate FiO2 04/03/16 14:56 97 21 04/03/16 14:43 64 17 165/70 98 Room Air 04/03/16 11:28 18 98 Room Air 04/03/16 11:14 70 18 98 Room Air 04/03/16 11:06 98.7 69 18 137/64 98 Physical Exam GENERAL: This is an elderly, frail, thin built female. SKIN: No rashes, ecchymoses or lesions. Cool and dry. HEAD: Atraumatic. Normocephalic. No temporal or scalp tenderness. EYES: Pupils equal round and reactive. Extraocular motions intact. No scleral icterus. No injection or drainage. ENT: Nose without bleeding, purulent drainage or septal hematoma. Throat without erythema, tonsillar hypertrophy or exudate. Uvula midline. Airway patent. NECK: Trachea midline. No JVD or lymphadenopathy. Supple, nontender, no meningeal signs. CARDIOVASCULAR: Regular rate and rhythm with 2-3/6 murmurs, no gallops, no rubs. RESPIRATORY: Faint bibasilar rales. Breath sounds equal bilaterally. GASTROINTESTINAL: Abdomen soft, non-tender, nondistended. No hepato-splenomegaly , or palpable masses. No guarding. MUSCULOSKELETAL: Extremities without clubbing, cyanosis, or edema. No joint tenderness, effusion, or edema noted. No calf tenderness. Negative Homans sign bilaterally. NEUROLOGICAL: Awake, oriented x 2. Confused at times, following commands. Speech clear, no focal deficits. Laboratory Laboratory Tests Test 04/03/16 11:50 White Blood Count 5.1 Red Blood Count 3.17 Hemoglobin 10.3 Hematocrit 31.0 Mean Corpuscular Volume 97.7 Mean Corpuscular Hemoglobin 32.4 Mean Corpuscular Hemoglobin 33.1 Concent Red Cell Distribution Width 16.6 Platelet Count 257 Mean Platelet Volume 7.8 Neutrophils (%) (Auto) 66.9 Lymphocytes (%) (Auto) 19.8 Monocytes (%) (Auto) 8.7 Eosinophils (%) (Auto) 3.2 Basophils (%) (Auto) 1.4 Neutrophils # (Auto) 3.4 Lymphocytes # (Auto) 1.0 Monocytes # (Auto) 0.4 Eosinophils # (Auto) 0.2 Basophils # (Auto) 0.1 CBC Comment DIFF FINAL Differential Comment Prothrombin Time 11.5 Prothromb Time International 1.0 Ratio Activated Partial 29.6 Thromboplast Time Sodium Level 134 Potassium Level 3.6 Chloride Level 100 Carbon Dioxide Level 25.3 Anion Gap 9 Blood Urea Nitrogen 15 Creatinine 3.40 Estimat Glomerular Filtration 15 Rate Random Glucose 104 Calcium Level 7.8 Total Bilirubin 0.5 Aspartate Amino Transf 16 (AST/SGOT) Alanine Aminotransferase 14 (ALT/SGPT) Alkaline Phosphatase 89 Troponin I 0.08 B-Type Natriuretic Peptide 2639 Total Protein 7.2 Albumin 3.3 (Garima Neely) Result Diagram: 04/03/16 1150 04/03/16 1150 Assessment and Plan Problem List: (1) Chest pain (2) ESRD (end stage renal disease) (3) CAD (coronary artery disease) (4) Aortic stenosis (5) Atrial fibrillation (6) Cardiomyopathy (7) Hypertension (8) Hyperlipidemia (9) Depression (10) Anxiety (11) Hypothyroid Assessment and Plan Admit to Dr. Grimm 85-year-old elderly female with multiple comorbidities including end-stage renal disease, coronary artery disease, non-STEMI's, stents, cardiomyopathy, valvular heart disease. Presented to the emergency room with recurrent chest pain and elevated troponin. Possible non-STEMI secondary to cardiac demand. -Serial cardiac enzymes -Continuous cardiac telemetry monitoring. -Continue aspirin/Coreg/Lipitor -Consult Dr. Valentin, input appreciated Cardiomyopathy, history of CHF, elevated B natruretic peptide, unclear if patient was able to finish treatment -Monitor for fluid overload Hemodialysis per schedule End-stage renal disease on dialysis Sunday Consul nephrology for HD management HTN -Resume home meds Paroxysmal A. fib Continue with Coreg Resume Eliquis Anxiety and Depression -Xanax PRN -Continue Vilozadone Hyperlipidemia Continue home medications Home medications reviewed, initiated as indicated. Continue with Eliquis for DVT prophylaxis Patient may benefit from hospice, we'll try to discuss when patient is less anxious. Plan of care discussed with attending, RN, and pt. Further management of the patient will be dependent on the hospital course. This patient was seen by myself and Dr. Grimm, this H/P is written on her behalf. (Garima Neely) Assessment and Plan This is late entry Patient was seen and examined on 04/03 in ER agree with above assessment and plan discussed with patient discussed with Garima LALA (Deya Grimm MD) Problem Qualifiers (1) Chest pain: Qualified Code: R07.9 - Chest pain, unspecified type (2) CAD (coronary artery disease): Qualified Code: I25.10 - Coronary artery disease involving [place] coronary artery of [place] heart without angina pectoris (3) Aortic stenosis: Qualified Code: I35.0 - Aortic valve stenosis, unspecified etiology (4) Atrial fibrillation: Qualified Code: I48.91 - Atrial fibrillation, unspecified type (5) Cardiomyopathy: Qualified Code: I42.9 - Cardiomyopathy, unspecified type (6) Hypertension: Qualified Code: I10 - Essential hypertension (7) Hyperlipidemia: Qualified Code: E78.5 - Hyperlipidemia, unspecified hyperlipidemia type (8) Depression: Qualified Code: F32.9 - Depression, unspecified depression type (9) Hypothyroid: Qualified Code: E03.9 - Hypothyroidism, unspecified type Garima Neely Apr 03, 2016 16:14 Deya Grimm MD Apr 04, 2016 08:46
--- NOTE | 2016-04-03 16:25 | MB ---
cc: YESI JACKSON M.D. DATE OF CONSULTATION 04/03/2016 HISTORY Ms. Wandy Meehan is a very pleasant 85-year-old lady with a history of coronary artery disease status post PCI, end-stage renal failure on dialysis, peripheral vascular disease status post renal artery stenting, frequent admissions for chest pain. She had a heart cath done in the fall of 2015 which showed moderate three-vessel disease. Again she has had multiple admissions subsequently for chest pain each time with minimally elevated troponins. There does not appear to be any consistent pattern or precipitating causes. The pain is described as severe and sharp. Currently she is pain free. She has had a lot of issues with depression recently. She appears to be easily teary eyed this admission and the last two admissions. Otherwise currently denies chest pain, fever or chills, cough, GI or bleeding, paroxysmal nocturnal dyspnea, orthopnea, syncope or dizziness. PAST MEDICAL HISTORY Per the history of present illness. 1. History of anemia. 2. Arthritis. 3. Anxiety. 4. Depression. 5. PCI times three. 6. Sleep apnea. 7. Appendectomy. 8. Left cataract removal. 9. Hysterectomy. 10. Bilateral total hip and bilateral total knee replacement. SOCIAL HISTORY Rarely drinks alcohol. Denies tobacco use. ALLERGIES DILAUDID, MORPHINE, MULTIDRUG RESISTANT ORGANISM. MEDICATIONS Prior to admission: 1. Furosemide 40 twice a day. 2. Megestrol. 3. Lipitor 20 bedtime. 4. Nephro-Anne. 5. Sensipar. 6. Xanax. 7. Renvela. 8. Carvedilol 12.5 q.12h. 9. Thera-M. 10. Tylenol. 11. Docusate. 12. Eliquis 2.5 twice a day. 13. Aspirin 81 milligrams daily. 14. Travatan. 15. Viibryd. Medications in the hospital heparin 5000 subcu q.12h. Cardiac catheterization December 27, 2015 showed moderate three-vessel coronary artery disease, EF 45-50%. LAD had 40-50% stenoses. Obtuse marginal vessel has 40-50% stenosis. Right coronary artery has 60% mid stenosis. PHYSICAL EXAMINATION VITAL SIGNS: Blood pressure 137/64, pulse 69, respiratory rate 18, temperature 98.7. GENERAL: She is alert and oriented times three in no acute distress. NECK: Supple. No JVD or bruit. CARDIOVASCULAR: Normal S1-S2. No murmurs, rubs, or gallops. LUNGS: Clear to auscultation bilaterally. ABDOMEN: Soft and nontender. Nondistended. Positive bowel sounds. EXTREMITIES: No lower extremity edema. LABORATORY DATA White count 5.1, hemoglobin 10.3, hematocrit 31.0, platelet count 257. Sodium 134, potassium 3.6, chloride 120, bicarb 25.3, BUN 15, creatinine 3.40. Troponin is 0.08. BNP is 2639. INR 1.0. IMAGING Chest x-ray abnormal chest as described above, paratracheal fullness on the right. Heart is enlarged. Minimal parenchymal changes are seen in the left base with some air bronchograms. Right lung is clear. EKG shows normal sinus rhythm with PACs, left ventricular hypertrophy, 2 mm T-wave inversion in lead V4, V5, V6 which is symmetric. Also biphasic T-wave in III and aVF. FINAL DIAGNOSES 1. Non ST-elevation myocardial infarction. 2. Coronary artery disease. 3. Peripheral vascular disease. 4. End-stage renal disease. 5. Left ventricular hypertrophy. 6. Depression. 7. Decompensated congestive heart failure. DISCUSSION At this point in time I have recommended repeat left heart catheterization as the patient has frequent admissions for chest pain. Although I doubt that the 50-60% lesion she has in the LAD, right coronary artery and left circumflex vessel would cause resting chest pain, I cannot completely rule out this and if the lesions continue to be at this degree of stenosis would perform FFR of the LAD and right coronary artery first. The patient adamantly refuses left heart catheterization. I do think her volume is best managed with dialysis. It appears she is volume overloaded and this may be related to either not enough fluid taken off with dialysis and/or transient ischemia from three-vessel coronary artery disease. If the patient continues to refuse catheterization and possible revascularization, I do think hospice should be considered as she appears to be failing optimal medical therapy, and would continue to have frequent admissions. I recommend continuing Eliquis for her a fib and also to cover her for her coronary artery disease as well as Lipitor. MD EFRA Tejeda/KARINA /2:29 PM /4:01 PM
[2016-04-03] MEDS ORDERED: NON-FORMULARY DRUG (Travoprost Opth Drops (Travatan Z Opth Drops) 1 DROP) EACH EYE PRN (16:45)
[2016-04-03] MEDS: SEVELAMER CARBONATE 800 MG TAB PO SCH (18:50)
[2016-04-03] MEDS: SODIUM CHLORIDE 0.9% FLUSH 5 ML FLUSH FLUSH SCH (20:31)
[2016-04-03] MEDS: LATANOPROST 0.005% OPHT SOLN 2.5 ML BTL EACH EYE SCH (20:32)
[2016-04-03] MEDS: DOCUSATE SODIUM 100 MG CAP PO SCH (20:32)
[2016-04-03] MEDS: ATORVASTATIN 20 MG TAB PO SCH (20:32)
[2016-04-03] MEDS: APIXABAN 2.5 MG TABLET PO SCH (20:32)
[2016-04-03] MEDS: CARVEDILOL 12.5 MG TAB PO SCH (20:32)
[2016-04-04] VITALS (10 sets, daily range): BP systolic 115–188; BP diastolic 53–80; PULSE 62–89; RESP 14–20; TEMP 97.4–98.9; O2SAT 95–100
[2016-04-04] MEDS ORDERED: ALPRAZolam 0.25 MG TAB PO PRN (01:45)
[2016-04-04 04:46] LABS: AUTOMATED NEUTROPHIL # 2.8 TH/MM3 (1.8-7.7); BASOPHIL % 0.5 % (0.0-2.0); EOSINOPHIL # 0.2 TH/MM3 (0-0.4); HEMATOCRIT 27.7 % (35.0-46.0); HEMO FLAGS DIFF FINAL; LYMPH % 34.3 % (9.0-44.0); LYMPHOCYTE # 1.9 TH/MM3 (1.0-4.8); MEAN CELL VOLUME 96.9 FL (80.0-100.0); MEAN CORPUSCULAR HEMOGLOBIN 33.2 PG (27.0-34.0); MEAN CORPUSCULAR HGB CONC 34.3 % (32.0-36.0); MONO % 11.6 % (0.0-8.0); NEUT % 50.6 % (16.0-70.0); PLATELET COUNT 243 TH/MM3 (150-450); RED BLOOD COUNT 2.86 MIL/MM3 (4.00-5.30); RED CELL DISTRIBUTION WIDTH 16.3 % (11.6-17.2); WHITE BLOOD COUNT 5.5 TH/MM3 (4.0-11.0)
[2016-04-04 05:14] LABS: BICARBONATE 26.1 MEQ/L (21.0-32.0); POTASSIUM 4.1 MEQ/L (3.5-5.1)
--- NOTE | 2016-04-04 08:50 | HHI.PR ---
Subjective Interval History awake alert oriented to person, place per nursing staff, intermittently confused wants to go home one episode of mild chest pain last night no chest pain at this point remembers seeing DR Valentin yesterday, but does not remember refusing Cardiac cath agreeable to get cath done today no family at bed side Vitals/Results Vital Signs Vital Signs Date Time Temp Pulse Resp B/P Pulse Ox O2 Delivery O2 Flow Rate FiO2 04/04/16 08:28 98.9 89 18 167/66 95 04/04/16 04:30 97.4 75 14 154/71 04/03/16 21:02 98.4 78 21 121/68 98 04/03/16 18:26 142/62 04/03/16 16:18 98.8 78 18 190/79 96 04/03/16 14:56 97 21 04/03/16 14:43 64 17 165/70 98 Room Air 04/03/16 11:28 18 98 Room Air 04/03/16 11:14 70 18 98 Room Air 04/03/16 11:06 98.7 69 18 137/64 98 CBC/BMP: 04/04/16 0426 04/04/16 0426 Lab Results Laboratory Tests Test 04/03/16 04/03/16 04/04/16 11:50 22:47 04:26 White Blood Count 5.1 TH/MM3 5.5 TH/MM3 Red Blood Count 3.17 MIL/MM3 2.86 MIL/MM3 Hemoglobin 10.3 GM/DL 9.5 GM/DL Hematocrit 31.0 % 27.7 % Mean Corpuscular Volume 97.7 FL 96.9 FL Mean Corpuscular Hemoglobin 32.4 PG 33.2 PG Mean Corpuscular Hemoglobin 33.1 % 34.3 % Concent Red Cell Distribution Width 16.6 % 16.3 % Platelet Count 257 TH/MM3 243 TH/MM3 Mean Platelet Volume 7.8 FL 8.0 FL Neutrophils (%) (Auto) 66.9 % 50.6 % Lymphocytes (%) (Auto) 19.8 % 34.3 % Monocytes (%) (Auto) 8.7 % 11.6 % Eosinophils (%) (Auto) 3.2 % 3.0 % Basophils (%) (Auto) 1.4 % 0.5 % Neutrophils # (Auto) 3.4 TH/MM3 2.8 TH/MM3 Lymphocytes # (Auto) 1.0 TH/MM3 1.9 TH/MM3 Monocytes # (Auto) 0.4 TH/MM3 0.6 TH/MM3 Eosinophils # (Auto) 0.2 TH/MM3 0.2 TH/MM3 Basophils # (Auto) 0.1 TH/MM3 0.0 TH/MM3 CBC Comment DIFF FINAL DIFF FINAL Differential Comment Prothrombin Time 11.5 SEC Prothromb Time International 1.0 RATIO Ratio Activated Partial 29.6 SEC Thromboplast Time Sodium Level 134 MEQ/L 137 MEQ/L Potassium Level 3.6 MEQ/L 4.1 MEQ/L Chloride Level 100 MEQ/L 103 MEQ/L Carbon Dioxide Level 25.3 MEQ/L 26.1 MEQ/L Anion Gap 9 MEQ/L 8 MEQ/L Blood Urea Nitrogen 15 MG/DL 28 MG/DL Creatinine 3.40 MG/DL 4.66 MG/DL Estimat Glomerular Filtration 15 ML/MIN 11 ML/MIN Rate Random Glucose 104 MG/DL 88 MG/DL Calcium Level 7.8 MG/DL 8.6 MG/DL Total Bilirubin 0.5 MG/DL Aspartate Amino Transf 16 U/L (AST/SGOT) Alanine Aminotransferase 14 U/L (ALT/SGPT) Alkaline Phosphatase 89 U/L Troponin I 0.08 NG/ML 0.08 NG/ML 0.09 NG/ML B-Type Natriuretic Peptide 2639 PG/ML Total Protein 7.2 GM/DL Albumin 3.3 GM/DL Physical Exam General General Appearance: No Acute Distress, Comfortable Eyes Eye Exam: Pupils Equal, Pupils Reactive Throat Throat Exam: Oral Mucosa [place] & Moist Neck Neck Exam: Neck Supple, Trachea Midline Pulmonary Resp Exam: Breath Sounds Equal, No Distress, Crackles Cardiology CV Exam: Regular, Murmur Gastrointestinal/Abdomen GI Exam: Soft, Non-Tender, Bowel Sounds Present Integumentary Skin Exam: Clear, Warm, Dry, Intact Extremeties Extremities Exam: No Edema Neurologic Neuro Exam: Alert, Awake, Oriented, Speech Clear, Moving All Extremities Neuro Remarks intermittent confusion Psychiatric Psych Exam: Appropriate Responses Assessment/Plan Assessment/Plan Assessment and Plan Assessment and Plan Problem List: (1) Chest pain (2) ESRD (end stage renal disease) (3) CAD (coronary artery disease) (4) Aortic stenosis (5) Atrial fibrillation (6) Cardiomyopathy (7) Hypertension (8) Hyperlipidemia (9) Depression (10) Anxiety (11) Hypothyroid Assessment and Plan 85-year-old elderly female with multiple comorbidities including end-stage renal disease, coronary artery disease, non-STEMI's, stents, cardiomyopathy, valvular heart disease. Presented to the emergency room with recurrent chest pain and elevated troponin. Possible non-STEMI secondary to cardiac demand. -Serial cardiac enzymes notted to be stable, slightly elevated sec to ESRD. -Continuous cardiac telemetry monitoring. -Continue aspirin/Coreg/Lipitor -Consult Dr. Valentin, input appreciated: recommends Cardiac cath, patient refused yesterday, but willing to proceed with it today. -NPO -will inform Cardiology Cardiomyopathy, history of CHF, elevated B natruretic peptide, unclear if patient was able to finish treatment -Monitor for fluid overload Hemodialysis per schedule End-stage renal disease on dialysis Sunday Consult nephrology for HD management HTN -Resume home meds Paroxysmal A. fib Continue with Coreg Resume Eliquis Anxiety and Depression -Xanax PRN -Continue Vilozadone Hyperlipidemia Continue home medications Home medications reviewed, initiated as indicated. Continue with Eliquis for DVT prophylaxis Patient may benefit from hospice, we'll try to discuss when patient is less anxious. likely proceed with cardiac cath today discussed with patient Deya Grimm MD Apr 04, 2016 08:50
[2016-04-04] MEDS: SODIUM CHLORIDE 0.9% FLUSH 5 ML FLUSH FLUSH SCH ×2 (09:00→21:14)
[2016-04-04] MEDS ORDERED: NON-FORMULARY DRUG (Vilazodone (Viibryd) 40 MG) PO SCH (09:00)
[2016-04-04] MEDS ORDERED: [UNRECOGNIZED DRUG - OTHER] PO SCH (09:00)
[2016-04-04] MEDS ORDERED: FOLIC ACID PO SCH (09:00)
[2016-04-04] MEDS: CINACALCET HYDROCHLORIDE 30 MG TAB PO SCH (09:00)
[2016-04-04] MEDS: APIXABAN 2.5 MG TABLET PO SCH (09:00)
[2016-04-04] MEDS: SEVELAMER CARBONATE 800 MG TAB PO SCH ×3 (09:00→18:17)
[2016-04-04] MEDS ORDERED: [UNRECOGNIZED DRUG - OTHER] PO SCH (09:00)
[2016-04-04] MEDS ORDERED: B COMPLEX PO SCH (09:00)
[2016-04-04] MEDS: VITAMIN B CMPLX/VITC/FOLIC AC CAP PO SCH (09:47)
[2016-04-04] MEDS: DOCUSATE SODIUM 100 MG CAP PO SCH ×2 (09:47→21:13)
[2016-04-04] MEDS: MULTIVITAMINS/MINERALS THERAPEUTIC TAB PO SCH (09:48)
[2016-04-04] MEDS: CARVEDILOL 12.5 MG TAB PO SCH ×2 (09:48→21:13)
[2016-04-04] MEDS: ASPIRIN EC 81 MG TABEC PO SCH (09:48)
[2016-04-04] MEDS: MEGESTROL ACETATE SUSP 400 MG/10 ML CUP PO SCH (11:20)
--- NOTE | 2016-04-04 11:37 | PD.CONS ---
HPI Service Nephrology Consult Requested By Reason for Consult ESRD on HD Primary Care Physician Ashlyn Mao MD History of Present Illness This is our 85 y/o AAF dialysis pt who was readmitted for chest pain yesterday from dialysis. The pain is mostly subsided, however she has a hx of CAD and Dr. Valentin has been following. She is to have cardiac catheterization on , has 3 vessel CAD from her last cath. There are no electrolyte concerns today. She is slightly short of breath but not on oxygen. We were consulted for dialysis. Other PMH as outlined below. Of note her depression has been worsening , she is tearful most of the time. 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 Past Medical History ESRD on HD M-W- CAD s/p stents GERD HTN Anemia Arthritis Depression Metabolic Bone Disorder Past Surgical History Past Surgical History AVF RUE Cardiac cath x 3 renal artery stent Hysterectomy Total knee, right Total knee, left x2 total hip replacement, bilaterally tonsils Reported Medications Furosemide 40 Mg Tab 40 Mg PO BID PRN Megestrol Liq (Megestrol Acetate) 40 Mg/Ml Susp 800 Mg PO DAILY Lipitor (Atorvastatin Calcium) 20 Mg Tab 20 Mg PO HS Reported Nephro-Anne (B-Complex W/ C & Folic Acid) 1 Tab 1 Tab PO DAILY Sensipar (Cinacalcet) 30 Mg Tab 30 Mg PO DAILY Xanax (Alprazolam) 0.25 Mg Tab 0.25 Mg PO Q8H PRN Renvela (Sevelamer Carbonate) 800 Mg Tab 800 Mg PO TID Carvedilol 12.5 Mg Tab 12.5 Mg PO Q12HR Thera-M (Multiple Vitamins W/ Minerals) 1 Tab 1 Tab PO DAILY Tylenol (Acetaminophen) 325 Mg Cap 650 Mg PO Q4HR PRN Docusate Sodium 100 Mg Cap 100 Mg PO BID Eliquis (Apixaban) 2.5 Mg Tab 2.5 Mg PO BID Aspirin 81 Mg Tabdr 81 Mg PO DAILY Travatan Z Opth Drops (Travoprost) 0.004 % Soln 1 Drop EACH EYE HS PRN Viibryd (Vilazodone) 40 Mg Tab 40 Mg PO DAILY Active Ordered Medications Current Medications Medications (Trade) Dose Ordered Sig/Thierry Route Start Time Stop Time Status Last Admin (NS Flush) 2 ml UNSCH PRN FLUSH 04/03/16 14:00 (NS Flush) 2 ml BID FLUSH 04/03/16 21:00 04/03/16 20:31 (Tylenol) 650 mg Q4H PRN PO 04/03/16 14:00 (Zofran Inj) 4 mg Q6H PRN IVP 04/03/16 14:00 (Narcan Inj) 0.4 mg UNSCH PRN IV 04/03/16 14:00 (Eliquis) 2.5 mg BID PO 04/03/16 21:00 Hold 04/03/16 20:32 (Ecotrin Ec) 81 mg DAILY PO 04/04/16 09:00 04/04/16 09:48 (Lipitor) 20 mg HS PO 04/03/16 21:00 04/03/16 20:32 (Coreg) 12.5 mg Q12HR PO 04/03/16 21:00 04/04/16 09:48 (Sensipar) 30 mg DAILY PO 04/04/16 09:00 (Colace) 100 mg BID PO 04/03/16 21:00 04/04/16 09:47 (Megace Liq) 800 mg DAILY PO 04/04/16 09:00 04/04/16 11:20 (Theragran M Tab) 1 tab DAILY PO 04/04/16 09:00 04/04/16 09:48 (Renvela) 800 mg TID PO 04/03/16 18:00 04/03/16 18:50 (Nephrocaps) 1 cap DAILY PO 04/04/16 09:00 04/04/16 09:47 (Xalatan 0.005% Opth Soln) 1 drop HS EACH EYE 04/03/16 21:00 04/03/16 20:32 Patient Own Medication PT OWN MED: [id number]... DAILY PO 04/04/16 09:00 Hold (Xanax) 0.25 mg Q8H PRN PO 04/04/16 01:45 Family History No hx of renal disorders Social History Non smoker Occasional ETOH, wine Now lives in assisted living complex Full code Functionally independent (Lelo Chong) Physical Exam Vital Signs Vital Signs Date Time Temp Pulse Resp B/P Pulse Ox O2 Delivery O2 Flow Rate FiO2 04/04/16 08:28 98.9 89 18 167/66 95 04/04/16 04:30 97.4 75 14 154/71 04/03/16 21:02 98.4 78 21 121/68 98 04/03/16 18:26 142/62 04/03/16 16:18 98.8 78 18 190/79 96 04/03/16 14:56 97 21 04/03/16 14:43 64 17 165/70 98 Room Air Physical Exam Elderly AAF lying in bed Neuro: awake, oriented x 4 without deficit CV: S1/S2, RRR , not tachycardic Resp: scant crackles in bases GI: soft, NT/ND, BS x normoactive : anuric at baseline Ext: warm/dry; pulses 2+ DP, radial; RUE AVF, good thrill/bruit Laboratory Laboratory Tests Test 04/03/16 04/03/16 04/04/16 11:50 22:47 04:26 White Blood Count 5.1 5.5 Red Blood Count 3.17 2.86 Hemoglobin 10.3 9.5 Hematocrit 31.0 27.7 Mean Corpuscular Volume 97.7 96.9 Mean Corpuscular Hemoglobin 32.4 33.2 Mean Corpuscular Hemoglobin 33.1 34.3 Concent Red Cell Distribution Width 16.6 16.3 Platelet Count 257 243 Mean Platelet Volume 7.8 8.0 Neutrophils (%) (Auto) 66.9 50.6 Lymphocytes (%) (Auto) 19.8 34.3 Monocytes (%) (Auto) 8.7 11.6 Eosinophils (%) (Auto) 3.2 3.0 Basophils (%) (Auto) 1.4 0.5 Neutrophils # (Auto) 3.4 2.8 Lymphocytes # (Auto) 1.0 1.9 Monocytes # (Auto) 0.4 0.6 Eosinophils # (Auto) 0.2 0.2 Basophils # (Auto) 0.1 0.0 CBC Comment DIFF FINAL DIFF FINAL Differential Comment Prothrombin Time 11.5 Prothromb Time International 1.0 Ratio Activated Partial 29.6 Thromboplast Time Sodium Level 134 137 Potassium Level 3.6 4.1 Chloride Level 100 103 Carbon Dioxide Level 25.3 26.1 Anion Gap 9 8 Blood Urea Nitrogen 15 28 Creatinine 3.40 4.66 Estimat Glomerular Filtration 15 11 Rate Random Glucose 104 88 Calcium Level 7.8 8.6 Total Bilirubin 0.5 Aspartate Amino Transf 16 (AST/SGOT) Alanine Aminotransferase 14 (ALT/SGPT) Alkaline Phosphatase 89 Troponin I 0.08 0.08 0.09 B-Type Natriuretic Peptide 2639 Total Protein 7.2 Albumin 3.3 (Lelo Chong) Result Diagram: 04/04/16 0426 04/04/16 0426 Imaging Last 72 hours Impressions Chest X-Ray 04/03/16 1118 Signed Impressions: Service Date/Time: Sunday, April 03, 2016 11:26 - CONCLUSION: Abnormal chest ass described above. Ryne Hanna MD FACR (Lelo Chong) Assessment and Plan Problem List: (1) ESRD (end stage renal disease) Plan: HD , she is due tomorrow, orders are entered no current electrolyte concerns fluid volume status acceptable AVF for dialysis, no concerns continue Sensipar for secondary hyperparathyroidism renal panel in am epogen with dialysis for anemia of chronic disease (2) Chest pain Plan: Dr. Valentin following plan for cardiac cath on eliquis on hold for procedure appreciate further recommendations (3) Metabolic bone disease Plan: Check phosphorus in am continue Renvela with meals (Lelo Chong) Assessment and Plan patient was seen and examined. Discussed with Dr. Valentin. To have dialysis MWF. Possible cardiac catheterization on . (Roland Miramontes MD) Problem Qualifiers (1) Chest pain: Qualified Code: R07.9 - Chest pain, unspecified type Lelo Chong Apr 04, 2016 11:37 Roland Miramontes MD Apr 04, 2016 16:28
--- NOTE | 2016-04-04 13:58 | PD.CARD.PN ---
Subjective Subjective Remarks alert in nad Objective Vital Signs / I&O Vital Signs Date Time Temp Pulse Resp B/P Pulse Ox O2 Delivery O2 Flow Rate FiO2 04/04/16 11:42 64 18 115/53 95 04/04/16 08:28 98.9 89 18 167/66 95 04/04/16 04:30 97.4 75 14 154/71 04/03/16 21:02 98.4 78 21 121/68 98 04/03/16 18:26 142/62 04/03/16 16:18 98.8 78 18 190/79 96 04/03/16 14:56 97 21 04/03/16 14:43 64 17 165/70 98 Room Air Physical Exam GENERAL: SKIN: Warm and dry. HEAD: Normocephalic. EYES: No scleral icterus. No injection or drainage. NECK: Supple, trachea midline. No JVD or lymphadenopathy. CARDIOVASCULAR: Regular rate and rhythm without murmurs, gallops, or rubs. RESPIRATORY: Breath sounds equal bilaterally. No accessory muscle use. GASTROINTESTINAL: Abdomen soft, non-tender, nondistended. MUSCULOSKELETAL: No cyanosis, or edema. BACK: Nontender without obvious deformity. No CVA tenderness. Laboratory Laboratory Tests Test 04/03/16 04/04/16 22:47 04:26 Troponin I 0.08 NG/ML 0.09 NG/ML White Blood Count 5.5 TH/MM3 Red Blood Count 2.86 MIL/MM3 Hemoglobin 9.5 GM/DL Hematocrit 27.7 % Mean Corpuscular Volume 96.9 FL Mean Corpuscular Hemoglobin 33.2 PG Mean Corpuscular Hemoglobin 34.3 % Concent Red Cell Distribution Width 16.3 % Platelet Count 243 TH/MM3 Mean Platelet Volume 8.0 FL Neutrophils (%) (Auto) 50.6 % Lymphocytes (%) (Auto) 34.3 % Monocytes (%) (Auto) 11.6 % Eosinophils (%) (Auto) 3.0 % Basophils (%) (Auto) 0.5 % Neutrophils # (Auto) 2.8 TH/MM3 Lymphocytes # (Auto) 1.9 TH/MM3 Monocytes # (Auto) 0.6 TH/MM3 Eosinophils # (Auto) 0.2 TH/MM3 Basophils # (Auto) 0.0 TH/MM3 CBC Comment DIFF FINAL Differential Comment Sodium Level 137 MEQ/L Potassium Level 4.1 MEQ/L Chloride Level 103 MEQ/L Carbon Dioxide Level 26.1 MEQ/L Anion Gap 8 MEQ/L Blood Urea Nitrogen 28 MG/DL Creatinine 4.66 MG/DL Estimat Glomerular Filtration 11 ML/MIN Rate Random Glucose 88 MG/DL Calcium Level 8.6 MG/DL Assessment and Plan Problem List: (1) Anemia (2) Shortness of breath (3) Hypoxia (4) Pulmonary edema (5) NSTEMI (non-ST elevated myocardial infarction) (6) Elevated troponin (7) Atrial fibrillation (8) Aortic stenosis (9) CAD (coronary artery disease) (10) ESRD (end stage renal disease) (11) Cardiomyopathy Assessment and Plan 1.) NSTEMI - c/rhc is medcially necesary due to icm, mod to severe 3 vessel cad, reurrent admits for chf and nstemi, hold eliquis plan for 04/06/16, d/w pateint and nurse Problem Qualifiers (1) Atrial fibrillation: Qualified Code: I48.91 - Atrial fibrillation, unspecified type (2) Aortic stenosis: Qualified Code: I35.0 - Aortic valve stenosis, unspecified etiology (3) CAD (coronary artery disease): Qualified Code: I25.10 - Coronary artery disease involving [place] coronary artery of [place] heart without angina pectoris (4) Cardiomyopathy: Qualified Code: I42.9 - Cardiomyopathy, unspecified type Zohaib Valentin MD Apr 04, 2016 13:58
--- NOTE | 2016-04-04 16:09 | EKG ---
Date Performed: 04/03/2016 Time Performed: 11:15:09 PTAGE: 85 years EKG: Sinus rhythm WITH MARKED SINUS ARRHYTHMIA MARKED LEFT AXIS DEVIATION LEFT VENTRICULAR HYPERTROPHY AND ST-T CHANGE LVH WITH ST-T CHANGES Clinical correlation is recommended ABNORMAL ECG PREVIOUS TRACING : 03/26/2016 09.45 DOCTOR: Ren Jean Interpretating Date/Time 04/04/2016 16:07:40
[2016-04-04] MEDS: LATANOPROST 0.005% OPHT SOLN 2.5 ML BTL EACH EYE SCH (21:00)
[2016-04-04] MEDS: ATORVASTATIN 20 MG TAB PO SCH (21:12)
[2016-04-04] MEDS: ACETAMINOPHEN 325 MG TAB PO PRN (21:12)
[2016-04-05] VITALS (30 sets, daily range): BP systolic 113–175; BP diastolic 48–87; PULSE 61–87; RESP 18–20; TEMP 97.7–98.2; O2SAT 97–100
[2016-04-05] MEDS ORDERED: SODIUM CHLOR 0.9% 1000 ML INJ 1,000 ML IV PRN ×3 (08:26)
[2016-04-05] MEDS ORDERED: HEPARIN SODIUM - IV 10,000 UNITS/10 ML VIAL PRN (08:30)
[2016-04-05] MEDS ORDERED: NITROGLYCERIN 0.4 MG SL 25 TABS/BTL SL PRN (08:30)
[2016-04-05] MEDS ORDERED: ONDANSETRON HCL 4 MG/2 ML VIAL IV PRN (08:30)
[2016-04-05] MEDS ORDERED: SODIUM CHLORIDE 0.9% FLUSH 5 ML FLUSH IVF PRN (08:30)
[2016-04-05] MEDS ORDERED: diphenhydrAMINE HCL 25 MG CAP PO PRN (08:30)
[2016-04-05] MEDS ORDERED: ALBUMIN HUMAN 25% 25 GM/100 ML BAGP IV PRN (08:30)
[2016-04-05] MEDS ORDERED: MANNITOL 12.5 GM/50 ML VIAL IV PRN (08:30)
[2016-04-05] MEDS ORDERED: ACETAMINOPHEN 325 MG TAB PO PRN (08:30)
[2016-04-05] MEDS ORDERED: HEPARIN SODIUM - IV 10,000 UNITS/10 ML VIAL IVF PRN (08:30)
[2016-04-05] MEDS ORDERED: cloNIDine HCL 0.1 MG TAB PO PRN (08:30)
[2016-04-05] MEDS ORDERED: EPOETIN ALFA 10,000 UNITS/ML VIAL IV PRN (08:30)
[2016-04-05] MEDS ORDERED: GELATIN 12 MM/7 MM FOAM TOP PRN (08:30)
[2016-04-05] MEDS ORDERED: GENTAMICIN SULFATE (DIALYSIS USE ONLY) 20 MG/2 ML VIAL IV PRN (08:30)
--- NOTE | 2016-04-05 09:05 | HHI.NPPN ---
Subjective Complaints: Confused, Shortness of Breath General Problems: Anemia Renal Failure: Chronic, End Stage Renal Disease Interval History Seen during dialysis. She is confused today, tearful. Plan for cath tomorrow. ( Lelo Chong) Objective Data Data Vital Signs Date Time Temp Pulse Resp B/P Pulse Ox O2 Delivery O2 Flow Rate FiO2 04/05/16 04:14 98 04/04/16 17:38 97.7 64 18 174/78 100 04/04/16 15:51 70 18 144/60 95 04/04/16 11:42 64 18 115/53 95 (Lelo Chong) -: 04/04/16 0426 04/04/16 0426 Imaging Last 72 hours Impressions Chest X-Ray 04/03/16 1118 Signed Impressions: Service Date/Time: Sunday, April 03, 2016 11:26 - CONCLUSION: Abnormal chest ass described above. Ryne Hanna MD FACR (Lelo Chong) Physical Exam General Appearance: Well Developed, No Acute Distress, Comfortable, Anxious (Lelo Chong) Eyes Eye Exam: Pupils Equal, Pupils Reactive (Lelo Chong) Throat Throat Exam: Oral Mucosa [place] & Moist (Lelo Chong) Neck Neck Exam: Neck Supple, Trachea Midline (Lelo Chong) Pulmonary Resp Exam: Breath Sounds Equal, No Distress, Crackles (Lelo Chong) Cardiology CV Exam: Regular, Normal Sinus Rhythm, Murmur (Lelo Chong) Gastrointestinal/Abdomen GI Exam: Soft, Non-Tender, Bowel Sounds Present (Lelo Chong) Musculoskeletal MS Exam: Joints Intact, Normal Tone (Lelo Chong) Integumentary Skin Exam: Clear, Warm, Dry, Intact (Lelo Chong) Extremeties Extremities Exam: No Edema (Lelo Chong) Neurologic Neuro Exam: Alert, Awake, Oriented, Speech Clear, Moving All Extremities ( Lelo Chong) Psychiatric Psych Exam: Appropriate Responses (Lelo Chong) Assessment/Plan Discussed Condition With: Patient Assessment Summary: Anemia of CKD, Hypertension Problem List: (1) ESRD (end stage renal disease) Plan: HD MWF, seen during dialysis today on 3K, 350 BFR, goal 3L no current electrolyte concerns fluid volume status acceptable AVF for dialysis, no concerns continue Sensipar for secondary hyperparathyroidism epogen with dialysis for anemia of chronic disease (2) Chest pain Plan: Dr. Valentin following plan for cath tomorrow eliquis on hold for procedure appreciate further recommendations (3) Metabolic bone disease Plan: phosphorus level in process continue Renvela with meals (Lelo Chong) Plan patient was seen and examined during dialysis. She is depressed. I will start her on Celexa. Cardiac cath possibly tomorrow. (Roland Miramontes MD) Problem Qualifiers (1) Chest pain: Qualified Code: R07.9 - Chest pain, unspecified type Lelo Chong Apr 05, 2016 09:05 Roland Miramontes MD Apr 05, 2016 09:23
[2016-04-05] MEDS: SODIUM CHLORIDE 0.9% FLUSH 5 ML FLUSH FLUSH SCH ×2 (12:18→21:05)
[2016-04-05] MEDS: VITAMIN B CMPLX/VITC/FOLIC AC CAP PO SCH (12:18)
[2016-04-05] MEDS: ASPIRIN EC 81 MG TABEC PO SCH (12:19)
[2016-04-05] MEDS: SEVELAMER CARBONATE 800 MG TAB PO SCH ×3 (12:19→18:12)
[2016-04-05] MEDS: DOCUSATE SODIUM 100 MG CAP PO SCH ×2 (12:19→21:00)
[2016-04-05] MEDS: CARVEDILOL 12.5 MG TAB PO SCH ×2 (12:19→21:01)
[2016-04-05] MEDS: MULTIVITAMINS/MINERALS THERAPEUTIC TAB PO SCH (12:19)
[2016-04-05] MEDS: CITALOPRAM HYDROBROMIDE 20 MG TAB PO SCH (12:30)
[2016-04-05] MEDS: MEGESTROL ACETATE SUSP 400 MG/10 ML CUP PO SCH (12:31)
[2016-04-05] MEDS: CINACALCET HYDROCHLORIDE 30 MG TAB PO SCH (12:31)
--- NOTE | 2016-04-05 12:44 | HHI.PR ---
Subjective Interval History awake alert and oriented just returned from HD no chest pain today ok with cardiac cath in am no family at bed side Vitals/Results Intake & Output 04/04/16 04/04/16 04/05/16 15:00 23:00 07:00 Intake Total 460 ml Balance 460 ml Intake Oral 460 ml Vital Signs Vital Signs Date Time Temp Pulse Resp B/P Pulse Ox O2 Delivery O2 Flow Rate FiO2 04/05/16 12:01 66 04/05/16 11:00 76 04/05/16 10:01 62 04/05/16 09:00 66 04/05/16 08:15 98.2 65 20 166/81 99 04/05/16 08:00 66 04/05/16 07:00 66 04/05/16 06:00 72 04/05/16 05:00 68 04/05/16 04:14 98 04/05/16 04:00 61 04/05/16 03:00 97.8 69 20 175/87 99 04/05/16 03:00 62 04/05/16 02:00 66 04/05/16 01:00 66 04/05/16 00:00 67 04/04/16 23:00 98.3 62 20 188/80 100 04/04/16 23:00 66 04/04/16 22:00 64 04/04/16 21:00 68 04/04/16 20:00 67 04/04/16 19:00 80 04/04/16 19:00 98.5 70 18 173/70 100 04/04/16 17:38 97.7 64 18 174/78 100 04/04/16 15:51 70 18 144/60 95 CBC/BMP: 04/04/16 0426 04/04/16 0426 Physical Exam General General Appearance: Well Developed, No Acute Distress, Comfortable, Anxious Eyes Eye Exam: Pupils Equal, Pupils Reactive Throat Throat Exam: Oral Mucosa [place] & Moist Neck Neck Exam: Neck Supple, Trachea Midline Pulmonary Resp Exam: Breath Sounds Equal, No Distress, Crackles Cardiology CV Exam: Regular, Normal Sinus Rhythm, Murmur Gastrointestinal/Abdomen GI Exam: Soft, Non-Tender, Bowel Sounds Present Musculoskeletal MS Exam: Joints Intact, Normal Tone Integumentary Skin Exam: Clear, Warm, Dry, Intact Extremeties Extremities Exam: No Edema Neurologic Neuro Exam: Alert, Awake, Oriented, Speech Clear, Moving All Extremities Neuro Remarks intermittent confusion Psychiatric Psych Exam: Appropriate Responses Assessment/Plan Assessment/Plan Assessment and Plan Assessment and Plan Problem List: (1) Chest pain (2) ESRD (end stage renal disease) (3) CAD (coronary artery disease) (4) Aortic stenosis (5) Atrial fibrillation (6) Cardiomyopathy (7) Hypertension (8) Hyperlipidemia (9) Depression (10) Anxiety (11) Hypothyroid Assessment and Plan 85-year-old elderly female with multiple comorbidities including end-stage renal disease, coronary artery disease, non-STEMI's, stents, cardiomyopathy, valvular heart disease. Presented to the emergency room with recurrent chest pain and elevated troponin. Possible non-STEMI secondary to cardiac demand. -Serial cardiac enzymes noted to be stable, slightly elevated sec to ESRD. -Continuous cardiac telemetry monitoring. -Continue aspirin/Coreg/Lipitor -Consult Dr. Valentin, input appreciated: recommends Cardiac cath, likely in am -NPO after midnight Cardiomyopathy, history of CHF, elevated B natruretic peptide, unclear if patient was able to finish treatment -Monitor for fluid overload Hemodialysis per schedule End-stage renal disease on dialysis Sunday Consult nephrology for HD management HTN -Resume home meds Paroxysmal A. fib Continue with Coreg Hold Eliquis for cath Anxiety and Depression -Xanax PRN -Continue Vilozadone Hyperlipidemia Continue home medications Home medications reviewed, initiated as indicated. DVT prophylaxis cath in am discussed with patient Deya Grimm MD Apr 05, 2016 12:44
--- NOTE | 2016-04-05 14:46 | PD.CARD.PN ---
Subjective Subjective Remarks alert in nad Objective Vital Signs / I&O Vital Signs Date Time Temp Pulse Resp B/P Pulse Ox O2 Delivery O2 Flow Rate FiO2 04/05/16 14:01 70 04/05/16 13:00 76 04/05/16 12:01 66 04/05/16 11:50 97.8 72 20 134/73 100 04/05/16 11:00 76 04/05/16 10:01 62 04/05/16 09:00 66 04/05/16 08:15 98.2 65 20 166/81 99 04/05/16 08:00 66 04/05/16 07:00 66 04/05/16 06:00 72 04/05/16 05:00 68 04/05/16 04:14 98 04/05/16 04:00 61 04/05/16 03:00 97.8 69 20 175/87 99 04/05/16 03:00 62 04/05/16 02:00 66 04/05/16 01:00 66 04/05/16 00:00 67 04/04/16 23:00 98.3 62 20 188/80 100 04/04/16 23:00 66 04/04/16 22:00 64 04/04/16 21:00 68 04/04/16 20:00 67 04/04/16 19:00 80 04/04/16 19:00 98.5 70 18 173/70 100 04/04/16 17:38 97.7 64 18 174/78 100 04/04/16 15:51 70 18 144/60 95 I/O 04/04/16 04/04/16 04/04/16 04/05/16 04/05/16 04/05/16 07:00 15:00 23:00 07:00 15:00 23:00 Intake Total 460 ml Output Total 3000 ml Balance 460 ml -3000 ml Intake Oral 460 ml Output Hemodialysis 3000 ml Physical Exam GENERAL: SKIN: Warm and dry. HEAD: Normocephalic. EYES: No scleral icterus. No injection or drainage. NECK: Supple, trachea midline. No JVD or lymphadenopathy. CARDIOVASCULAR: Regular rate and rhythm without murmurs, gallops, or rubs. RESPIRATORY: Breath sounds equal bilaterally. No accessory muscle use. GASTROINTESTINAL: Abdomen soft, non-tender, nondistended. MUSCULOSKELETAL: No cyanosis, or edema. BACK: Nontender without obvious deformity. No CVA tenderness. Assessment and Plan Problem List: (1) Anemia (2) Shortness of breath (3) Hypoxia (4) Pulmonary edema (5) NSTEMI (non-ST elevated myocardial infarction) (6) Elevated troponin (7) Atrial fibrillation (8) Aortic stenosis (9) CAD (coronary artery disease) (10) ESRD (end stage renal disease) (11) Cardiomyopathy Assessment and Plan 1.) NSTEMI - c/c is medcially necesary due to icm, mod to severe 3 vessel cad, recurrent admits for chf and nstemi, hold eliquis plan for community health 04/06/16 , d/w patient and nurse; i explained to patient the risk of cath/pci is 10% chance of , mi, cva, need for emergency cabg/surgery/blood transfusion, bleeding, infection, arrythmia, anaphyalaxis Problem Qualifiers (1) Atrial fibrillation: Qualified Code: I48.91 - Atrial fibrillation, unspecified type (2) Aortic stenosis: Qualified Code: I35.0 - Aortic valve stenosis, unspecified etiology (3) CAD (coronary artery disease): Qualified Code: I25.10 - Coronary artery disease involving [place] coronary artery of [place] heart without angina pectoris (4) Cardiomyopathy: Qualified Code: I42.9 - Cardiomyopathy, unspecified type Zohaib Valentin MD Apr 05, 2016 14:46
[2016-04-05] MEDS: LATANOPROST 0.005% OPHT SOLN 2.5 ML BTL EACH EYE SCH (21:00)
[2016-04-05] MEDS: ATORVASTATIN 20 MG TAB PO SCH (21:01)
[2016-04-05] MEDS: ACETAMINOPHEN 325 MG TAB PO PRN (21:02)
[2016-04-05] MEDS ORDERED: DICYCLOMINE HCL 20 MG TAB PO ONE (23:30)
[2016-04-05] MEDS ORDERED: PILL SPLITTER OTHER PRN (23:30)
[2016-04-06] VITALS (38 sets, daily range): BP systolic 99–177; BP diastolic 41–79; PULSE 57–88; RESP 16–20; TEMP 97.7–99.1; O2SAT 96–99
[2016-04-06 07:02] LABS: BICARBONATE 29.2 MEQ/L (21.0-32.0); POTASSIUM 3.9 MEQ/L (3.5-5.1)
[2016-04-06] MEDS ORDERED: HEPARIN-NS/PF INJ 500 ML ONE (08:45)
--- NOTE | 2016-04-06 08:47 | PD.CARD.PN ---
Subjective Subjective Remarks alert in nad Objective Vital Signs / I&O Vital Signs Date Time Temp Pulse Resp B/P Pulse Ox O2 Delivery O2 Flow Rate FiO2 04/06/16 07:32 88 04/06/16 06:00 64 04/06/16 05:00 70 04/06/16 04:00 71 04/06/16 03:00 71 04/06/16 03:00 97.7 57 20 139/68 99 04/06/16 02:00 64 04/06/16 01:00 68 04/06/16 00:00 64 04/05/16 23:00 65 04/05/16 23:00 97.7 67 20 137/67 99 04/05/16 22:00 66 04/05/16 21:00 68 04/05/16 20:00 70 04/05/16 19:00 87 04/05/16 19:00 98.1 63 18 113/48 98 04/05/16 18:01 68 04/05/16 17:22 97 21 04/05/16 17:00 74 04/05/16 16:01 70 04/05/16 15:01 98.2 68 18 114/53 97 04/05/16 15:00 76 04/05/16 14:01 70 04/05/16 13:00 76 04/05/16 12:01 66 04/05/16 11:50 97.8 72 20 134/73 100 04/05/16 11:00 76 04/05/16 10:01 62 04/05/16 09:00 66 I/O 04/05/16 04/05/16 04/05/16 04/06/16 04/06/16 04/06/16 07:00 15:00 23:00 07:00 15:00 23:00 Intake Total 460 ml 480 ml 480 ml Output Total 3000 ml 700 ml Balance 460 ml -3000 ml 480 ml -220 ml Intake Oral 460 ml 480 ml 480 ml Output Urine Total 700 ml Hemodialysis 3000 ml # Voids 0 2 # Bowel Movements 1 Physical Exam GENERAL: SKIN: Warm and dry. HEAD: Normocephalic. EYES: No scleral icterus. No injection or drainage. NECK: Supple, trachea midline. No JVD or lymphadenopathy. CARDIOVASCULAR: Regular rate and rhythm without murmurs, gallops, or rubs. RESPIRATORY: Breath sounds equal bilaterally. No accessory muscle use. GASTROINTESTINAL: Abdomen soft, non-tender, nondistended. MUSCULOSKELETAL: No cyanosis, or edema. BACK: Nontender without obvious deformity. No CVA tenderness. Laboratory Laboratory Tests Test 04/06/16 05:53 Sodium Level 133 MEQ/L Potassium Level 3.9 MEQ/L Chloride Level 93 MEQ/L Carbon Dioxide Level 29.2 MEQ/L Anion Gap 11 MEQ/L Blood Urea Nitrogen 27 MG/DL Creatinine 5.23 MG/DL Estimat Glomerular Filtration 9 ML/MIN Rate Random Glucose 89 MG/DL Calcium Level 8.2 MG/DL Phosphorus Level 2.4 MG/DL Albumin 2.8 GM/DL Assessment and Plan Problem List: (1) Anemia (2) Shortness of breath (3) Hypoxia (4) Pulmonary edema (5) NSTEMI (non-ST elevated myocardial infarction) (6) Elevated troponin (7) Atrial fibrillation (8) Aortic stenosis (9) CAD (coronary artery disease) (10) ESRD (end stage renal disease) (11) Cardiomyopathy Assessment and Plan 1.) NSTEMI - [facility]/c is medcially necesary due to icm, mod to severe 3 vessel cad, recurrent admits for chf and nstemi, hold eliquis plan for [facility] 04/06/16 , d/w patient and nurse; i explained to patient the risk of cath/pci is 10% chance of , mi, cva, need for emergency cabg/surgery/blood transfusion, bleeding, infection, arrythmia, anaphyalaxis Problem Qualifiers (1) Atrial fibrillation: Qualified Code: I48.91 - Atrial fibrillation, unspecified type (2) Aortic stenosis: Qualified Code: I35.0 - Aortic valve stenosis, unspecified etiology (3) CAD (coronary artery disease): Qualified Code: I25.10 - Coronary artery disease involving [place] coronary artery of [place] heart without angina pectoris (4) Cardiomyopathy: Qualified Code: I42.9 - Cardiomyopathy, unspecified type Zohaib Valentin MD Apr 06, 2016 08:47
[2016-04-06] MEDS ORDERED: ADENOSINE STRESS TEST INJ 90 MG/30 ML VIAL ONE (08:55)
[2016-04-06] MEDS: CITALOPRAM HYDROBROMIDE 20 MG TAB PO SCH (09:00)
[2016-04-06] MEDS: CINACALCET HYDROCHLORIDE 30 MG TAB PO SCH (09:00)
[2016-04-06] MEDS: VITAMIN B CMPLX/VITC/FOLIC AC CAP PO SCH (09:00)
[2016-04-06] MEDS: CARVEDILOL 12.5 MG TAB PO SCH ×2 (09:00→22:48)
[2016-04-06] MEDS: SODIUM CHLORIDE 0.9% FLUSH 5 ML FLUSH FLUSH SCH ×2 (09:00→21:00)
[2016-04-06] MEDS: DOCUSATE SODIUM 100 MG CAP PO SCH ×2 (09:00→22:48)
[2016-04-06] MEDS: MULTIVITAMINS/MINERALS THERAPEUTIC TAB PO SCH (09:00)
[2016-04-06] MEDS: MEGESTROL ACETATE SUSP 400 MG/10 ML CUP PO SCH (09:00)
[2016-04-06] MEDS: ASPIRIN EC 81 MG TABEC PO SCH (09:00)
[2016-04-06] MEDS ORDERED: HEPARIN SODIUM - IV 10,000 UNITS/10 ML VIAL ONE (09:13)
[2016-04-06] MEDS ORDERED: CLOPIDOGREL 300 MG TAB ONE (09:38)
[2016-04-06] MEDS ORDERED: TIROFIBAN BOLUS INJ 100 ML IV ONE (09:42)
[2016-04-06] MEDS ORDERED: TIROFIBAN INFUSION INJ 250 ML IV SCH (09:46)
[2016-04-06] MEDS ORDERED: CLOPIDOGREL 300 MG TAB PO ONE (10:00)
[2016-04-06] MEDS ORDERED: SODIUM CHLORIDE 0.9% FLUSH 5 ML FLUSH IVF PRN (10:00)
[2016-04-06] MEDS ORDERED: MISC INFORMATION XX ONE (10:00)
[2016-04-06] MEDS ORDERED: IOHEXOL 350 MG/ML 100 ML BTL (for Cath Lab) OTHER ONE (10:14)
[2016-04-06] MEDS ORDERED: BACITRACIN OINT 0.9 GM PKT TOP ONE (10:45)
[2016-04-06] MEDS ORDERED: ATROPINE SULFATE 1 MG/10 ML SYRINGE ONE (14:45)
--- NOTE | 2016-04-06 17:38 | HHI.PR ---
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 Review of Systems Constitutional Constitutional Remarks 10 systems reviewed and otherwise negative Vitals/Results Intake & Output 04/05/16 04/05/16 04/06/16 15:00 23:00 07:00 Intake Total 480 ml 480 ml Output Total 3000 ml 700 ml Balance -3000 ml 480 ml -220 ml Intake Oral 480 ml 480 ml Output Urine Total 700 ml Hemodialysis 3000 ml # Voids 0 2 # Bowel Movements 1 Vital Signs Vital Signs Date Time Temp Pulse Resp B/P Pulse Ox O2 Delivery O2 Flow Rate FiO2 04/06/16 17:08 80 18 134/54 98 04/06/16 17:07 80 04/06/16 16:47 72 18 130/50 04/06/16 16:09 132/66 04/06/16 16:08 130/64 04/06/16 16:00 65 04/06/16 15:23 68 04/06/16 15:23 67 04/06/16 15:18 102/48 04/06/16 15:18 99/43 04/06/16 15:18 110/45 04/06/16 14:43 98 21 04/06/16 13:36 18 118/52 98 04/06/16 13:35 18 122/48 98 04/06/16 13:05 78 04/06/16 12:50 18 118/48 98 04/06/16 12:50 72 04/06/16 11:39 148/60 04/06/16 11:38 154/60 04/06/16 11:35 84 04/06/16 11:35 98.0 84 18 148/68 98 04/06/16 10:24 98.0 82 18 177/51 98 04/06/16 10:22 98.0 72 18 175/79 98 04/06/16 10:20 72 04/06/16 08:44 78 04/06/16 07:32 88 04/06/16 06:00 64 04/06/16 05:00 70 04/06/16 04:00 71 04/06/16 03:00 71 04/06/16 03:00 97.7 57 20 139/68 99 04/06/16 02:00 64 04/06/16 01:00 68 04/06/16 00:00 64 04/05/16 23:00 65 04/05/16 23:00 97.7 67 20 137/67 99 04/05/16 22:00 66 04/05/16 21:00 68 04/05/16 20:00 70 04/05/16 19:00 87 04/05/16 19:00 98.1 63 18 113/48 98 04/05/16 18:01 68 CBC/BMP: 04/04/16 0426 04/06/16 0553 Lab Results Laboratory Tests Test 04/06/16 05:53 Sodium Level 133 MEQ/L Potassium Level 3.9 MEQ/L Chloride Level 93 MEQ/L Carbon Dioxide Level 29.2 MEQ/L Anion Gap 11 MEQ/L Blood Urea Nitrogen 27 MG/DL Creatinine 5.23 MG/DL Estimat Glomerular Filtration 9 ML/MIN Rate Random Glucose 89 MG/DL Calcium Level 8.2 MG/DL Phosphorus Level 2.4 MG/DL Albumin 2.8 GM/DL Physical Exam General General Appearance: Well Developed, No Acute Distress, Comfortable Eyes Eye Exam: Pupils Equal, Pupils Reactive Throat Throat Exam: Oral Mucosa [place] & Moist Neck Neck Exam: Neck Supple, Trachea Midline Pulmonary Resp Exam: Breath Sounds Equal, No Distress Cardiology CV Exam: Regular, Normal Sinus Rhythm, Murmur Gastrointestinal/Abdomen GI Exam: Soft, Non-Tender, Bowel Sounds Present Musculoskeletal MS Exam: Normal Tone Integumentary Skin Exam: Clear, Warm, Dry Skin Remarks Right groin with clean dry dressing Extremeties Extremities Exam: No Edema Neurologic Neuro Exam: Alert, Awake, Oriented, Speech Clear, Moving All Extremities Psychiatric Psych Exam: Appropriate Responses Assessment/Plan Assessment/Plan Assessment and Plan Assessment and Plan Problem List: (1) Chest pain, coronary disease, status post coronary stenting on 04/06/16 (2) ESRD (end stage renal disease) (3) CAD (coronary artery disease) (4) Aortic stenosis (5) Atrial fibrillation, on long-term anticoagulation (6) Cardiomyopathy (7) Hypertension (8) Hyperlipidemia (9) Depression (10) Anxiety (11) Hypothyroid Plan Antiplatelet per cardiology pain control End-stage renal disease, on hemodialysis Resume anticoagulation when okay with cardiology Telemetry Discussed with patient Discussed with nurse Evens García MD Apr 06, 2016 17:38 Anxiety and Depression -Xanax PRN -Continue Vilozadone Hyperlipidemia Continue home medications Home medications reviewed, initiated as indicated. DVT prophylaxis cath in am discussed with patient Evens García MD Apr 06, 2016 17:38
[2016-04-06] MEDS ORDERED: SODIUM CHLORIDE 0.9% FLUSH 5 ML FLUSH IVF SCH (21:00)
[2016-04-06] MEDS ORDERED: CARVEDILOL 3.125 MG TAB PO SCH (21:00)
[2016-04-06] MEDS: ATORVASTATIN 20 MG TAB PO SCH (22:48)
[2016-04-06] MEDS: LATANOPROST 0.005% OPHT SOLN 2.5 ML BTL EACH EYE SCH (22:49)
[2016-04-07] VITALS (7 sets, daily range): BP systolic 122–138; BP diastolic 45–69; PULSE 66–79; RESP 16–18; TEMP 97; O2SAT 98–99
[2016-04-07 05:45] LABS: AUTOMATED NEUTROPHIL # 4.3 TH/MM3 (1.8-7.7); BASOPHIL # 0.1 TH/MM3 (0-0.2); EOSINOPHIL # 0.4 TH/MM3 (0-0.4); EOSINOPHIL % 6.5 % (0.0-4.0); HEMATOCRIT 25.6 % (35.0-46.0); HEMO FLAGS DIFF FINAL; LYMPH % 20.6 % (9.0-44.0); LYMPHOCYTE # 1.4 TH/MM3 (1.0-4.8); MEAN CELL VOLUME 97.3 FL (80.0-100.0); MEAN CORPUSCULAR HEMOGLOBIN 33.3 PG (27.0-34.0); MEAN CORPUSCULAR HGB CONC 34.2 % (32.0-36.0); MONO % 9.6 % (0.0-8.0); NEUT % 62.3 % (16.0-70.0); PLATELET COUNT 213 TH/MM3 (150-450); RED BLOOD COUNT 2.63 MIL/MM3 (4.00-5.30); RED CELL DISTRIBUTION WIDTH 16.2 % (11.6-17.2); WHITE BLOOD COUNT 6.8 TH/MM3 (4.0-11.0)
[2016-04-07 06:08] LABS: HDL CHOLESTEROL 76.2 MG/DL (40.0-60.0)
[2016-04-07 06:10] LABS: POTASSIUM 4.6 MEQ/L (3.5-5.1)
[2016-04-07] MEDS: MULTIVITAMINS/MINERALS THERAPEUTIC TAB PO SCH (09:00)
[2016-04-07] MEDS: DOCUSATE SODIUM 100 MG CAP PO SCH ×2 (09:00→09:02)
[2016-04-07] MEDS: CINACALCET HYDROCHLORIDE 30 MG TAB PO SCH (09:00)
[2016-04-07] MEDS: CITALOPRAM HYDROBROMIDE 20 MG TAB PO SCH (09:00)
[2016-04-07] MEDS: SODIUM CHLORIDE 0.9% FLUSH 5 ML FLUSH FLUSH SCH (09:00)
[2016-04-07] MEDS: CARVEDILOL 12.5 MG TAB PO SCH (09:00)
[2016-04-07] MEDS: MEGESTROL ACETATE SUSP 400 MG/10 ML CUP PO SCH (09:00)
[2016-04-07] MEDS: ASPIRIN 81 MG CHEW TAB PO SCH (09:00)
[2016-04-07] MEDS: VITAMIN B CMPLX/VITC/FOLIC AC CAP PO SCH ×2 (09:02→09:04)
[2016-04-07] MEDS: CLOPIDOGREL 75 MG TAB PO SCH ×2 (09:02→09:04)
--- NOTE | 2016-04-07 09:50 | MA ---
cc: [facility] DATE 04/06/2016 PROCEDURE PERFORMED Right heart catheterization, left heart catheterization, left ventriculography, coronary angiography, PCI bare metal stent x2 of the [id number] LAD, also FFR the LAD was done as well. INDICATIONS Non-STEMI coronary artery disease Frequent multiple admissions for flash pulmonary edema and non-STEMI and congestive heart failure. PROCEDURE The patient was brought to the cardiac heart catheterization laboratory, prepped and draped in the usual sterile fashion. 10 cc of 1% lidocaine was used to locally anesthetize the right common femoral arteary. A 4-[place] sheath placed in the right common femoral artery. A 7-[place] sheath placed in the right common femoral vein. Right heart catheterization was performed first with the following findings: Pulmonary Catheter wedge pressure 5/4/4. PA pressure 19/11-15, PA sat 66.9%, FA 91.9%, RA sat was done, but the sat was not read by the machine and the [place] was already out of the body. RV pressure 15/10-9, RA sat pressure 1/0-0. Left heart catheterization was then performed with a 4-[place] JR-4 and JL-4 catheter. LV pressure is 128/10-11, ejection fraction 45%. The right coronary artery is dominant and has a mid 60% stenosis. The left main coronary has no significant disease angiographically. The left circumflex with mild disease in the proximal segment up to 10% angiographically. The first obtuse marginal vessel is small vessel with no significant disease angiographically. The second obtuse marginal vessel is a large vessel, tortuous with mild disease in the mid segment up to 5-10% angiographically. The LAD has mild disease in the proximal mid segment up to 10-20% angiographically. The first diagonal artery is a medium size vessel with no significant obstructive disease. There is a stent in the proximal segment which is widely patent. At the second diagonal artery which is a small vessel, there is a 50% stenosis. This diagonal vessel has an ostial 95% stenosis. There is a sequential 60% and then a sequential third lesion at 70% in the nwn-me-ixuoee LAD. The patient was given 70 units per kilo of heparin and ACT was 190. An additional 1500 units of heparin with a final ACT 51. A 6-[place] XB 3.0 guide and 0.014 pressure wire was passed into the proximal LAD. Introducers removed. The guide and extension tubing was thoroughly flushed with normal saline. Despite this, the pressure waveform did appear damp. Equalization of pressures was then performed. I then crossed the three lesions in the [id number] LAD. The IFR was 0.93. The patient was given 140 mcg per kilogram per minute of adenosine at 50 seconds into the infusion. FFR was as low as 0.75. The infusion was then stopped. A 309 integrity stent was then used to stent the more distal three lesions with one inflation 10 atmospheres for 20 seconds. The stenosis went from 70% to 0% with SOLO-III flow. The second stent was placed in the second most distal lesion with one inflation to 14 atmospheres for 20 seconds. The stenosis went from 60% to 0% with SOLO-III flow. I elected not to stent the third lesion as this was at a bifurcation with a 90% ostial lesion of a small to medium size diagonal vessel. CONCLUSION 1. Non-STEMI, frequent admissions for CHF exacerbation/pulmonary edema and non-STEMI, culprit sequential lesions in the LAD as detailed above. 2. FFR 0.75 in the [id number]-[id number] LAD as detailed above, 50 seconds into an adenosine infusion. Successful therapy PCI bare metal stent of the [id number] LAD from 70% to 0% SOLO-III flow. 3. Successful PCI bare metal stent of the mid LAD from 60%-0% with SOLO-III flow. 4. Mild LV systolic function of 45%. 5. We will follow the patient clinically. If the patient continues to have chest pain, shortness of breath will consider PCI of the mid LAD and the mid right coronary artery. Otherwise recommend Plavix 600 mg p.o. load then 75 mm a day for 12-15 months, aspirin 162 daily, Aggrastat drip per renal dose protocol. 6. Continue medical management of coronary artery disease with aggressive cardiac risk factor modification. MD EFRA Tejeda/YENI /9:43 AM /9:24 AM
--- NOTE | 2016-04-07 09:52 | HHI.NPPN ---
Subjective Complaints: Confused, Shortness of Breath General Problems: Anemia Renal Failure: Chronic, End Stage Renal Disease Interval History Lying in bed. Had cath yesterday with stent placement per patient. Have not confirmed details of procedure. (Lelo Chong) Review of Systems General Constitutional: Fatigue (Lelo Chong) Objective Data Data 04/06/16 04/07/16 19:00 07:00 Intake Total 3700 ml 240 ml Output Total 400 ml 125 ml Balance 3300 ml 115 ml Intake Oral 1200 ml 240 ml IV Total 2500 ml Output Urine Total 400 ml 125 ml Stool Total 0 ml # Voids 2 Vital Signs Date Time Temp Pulse Resp B/P Pulse Ox O2 Delivery O2 Flow Rate FiO2 04/07/16 04:16 79 16 122/69 99 04/06/16 23:39 99.1 70 16 121/64 99 04/06/16 23:00 70 04/06/16 22:00 67 04/06/16 21:00 77 04/06/16 20:00 68 04/06/16 19:58 98 04/06/16 19:52 98.5 66 16 112/41 99 04/06/16 19:46 98.5 66 16 112/41 99 04/06/16 19:00 72 04/06/16 18:03 74 04/06/16 18:03 74 18 123/54 96 04/06/16 17:08 80 18 134/54 98 04/06/16 17:07 80 04/06/16 16:47 72 18 130/50 04/06/16 16:09 132/66 04/06/16 16:08 130/64 04/06/16 16:00 65 04/06/16 15:23 68 04/06/16 15:23 67 04/06/16 15:18 102/48 04/06/16 15:18 99/43 04/06/16 15:18 110/45 04/06/16 14:43 98 21 04/06/16 13:36 18 118/52 98 04/06/16 13:35 18 122/48 98 04/06/16 13:05 78 04/06/16 12:50 18 118/48 98 04/06/16 12:50 72 04/06/16 11:39 148/60 04/06/16 11:38 154/60 3/2/17 11:35 84 04/06/16 11:35 98.0 84 18 148/68 98 04/06/16 10:24 98.0 82 18 177/51 98 04/06/16 10:22 98.0 72 18 175/79 98 04/06/16 10:20 72 (Lelo Chong) -: 04/07/16 0448 04/07/16 0448 Physical Exam General Appearance: Well Developed, No Acute Distress, Comfortable (Lelo Chong) Eyes Eye Exam: Pupils Equal, Pupils Reactive (Lelo Chong) Throat Throat Exam: Oral Mucosa [place] & Moist (Lelo Chong) Neck Neck Exam: Neck Supple, Trachea Midline (Lelo Chong) Pulmonary Resp Exam: Breath Sounds Equal, No Distress (Lelo Chong) Cardiology CV Exam: Regular, Normal Sinus Rhythm, Murmur (Lelo Chong) Gastrointestinal/Abdomen GI Exam: Soft, Non-Tender, Bowel Sounds Present (Lelo Chong) Musculoskeletal MS Exam: Normal Tone (Lelo Chong) Integumentary Skin Exam: Clear, Warm, Dry (Lelo Chong) Extremeties Extremities Exam: No Edema (Lelo Chong) Neurologic Neuro Exam: Alert, Awake, Oriented, Speech Clear, Moving All Extremities ( Lelo Chong) Psychiatric Psych Exam: Appropriate Responses (Lelo Chong) Assessment/Plan Discussed Condition With: Patient Assessment Summary: Anemia of CKD, Hypertension Problem List: (1) ESRD (end stage renal disease) Plan: HD MWF, she is due today no current electrolyte concerns fluid volume status acceptable AVF for dialysis, no concerns continue Sensipar for secondary hyperparathyroidism (2) Chest pain Plan: Dr. Valentin following s/p left heart cath eliquis on hold , resume per cardiology appreciate further recommendations (3) Metabolic bone disease Plan: phosphorus was low, binders on hold will recheck and replace if needed (4) Anemia Plan: epogen with dialysis (Lelo Chong) Plan patient was seen and examined. Agree with above assessment and plan. She is to be discharged. Seen during dialysis. On 3K, UF goal is 3 liters. (Roland Miramontes MD) Problem Qualifiers (1) Chest pain: Qualified Code: R07.9 - Chest pain, unspecified type Lelo Chong Apr 07, 2016 09:52 Roland Miramontes MD Apr 07, 2016 15:06
[2016-04-07] MEDS ORDERED: PLAV75TA29 PO (11:17)
--- NOTE | 2016-04-07 14:24 | PD.CARD.PN ---
Subjective Subjective Remarks alert in nad Objective Vital Signs / I&O Vital Signs Date Time Temp Pulse Resp B/P Pulse Ox O2 Delivery O2 Flow Rate FiO2 04/07/16 11:07 04/07/16 10:37 99 21 04/07/16 09:51 97.0 78 18 138/45 98 04/07/16 04:16 79 16 122/69 99 04/06/16 23:39 99.1 70 16 121/64 99 04/06/16 23:00 70 04/06/16 22:00 67 04/06/16 21:00 77 04/06/16 20:00 68 04/06/16 19:58 98 04/06/16 19:52 98.5 66 16 112/41 99 04/06/16 19:46 98.5 66 16 112/41 99 04/06/16 19:00 72 04/06/16 18:03 74 04/06/16 18:03 74 18 123/54 96 04/06/16 17:08 80 18 134/54 98 04/06/16 17:07 80 04/06/16 16:47 72 18 130/50 04/06/16 16:09 132/66 04/06/16 16:08 130/64 04/06/16 16:00 65 04/06/16 15:23 68 04/06/16 15:23 67 04/06/16 15:18 102/48 04/06/16 15:18 99/43 04/06/16 15:18 110/45 04/06/16 14:43 98 21 I/O 04/06/16 04/06/16 04/06/16 04/07/16 04/07/16 04/07/16 07:00 15:00 23:00 07:00 15:00 23:00 Intake Total 480 ml 3700 ml 240 ml Output Total 700 ml 400 ml 125 ml Balance -220 ml 3300 ml 115 ml Intake Oral 480 ml 1200 ml 240 ml IV Total 2500 ml Output Urine Total 700 ml 400 ml 125 ml Stool Total 0 ml # Voids 2 2 # Bowel Movements 1 Physical Exam GENERAL: SKIN: Warm and dry. HEAD: Normocephalic. EYES: No scleral icterus. No injection or drainage. NECK: Supple, trachea midline. No JVD or lymphadenopathy. CARDIOVASCULAR: Regular rate and rhythm without murmurs, gallops, or rubs. RESPIRATORY: Breath sounds equal bilaterally. No accessory muscle use. GASTROINTESTINAL: Abdomen soft, non-tender, nondistended. MUSCULOSKELETAL: No cyanosis, or edema. BACK: Nontender without obvious deformity. No CVA tenderness. Laboratory Laboratory Tests Test 04/07/16 04:48 White Blood Count 6.8 TH/MM3 Red Blood Count 2.63 MIL/MM3 Hemoglobin 8.8 GM/DL Hematocrit 25.6 % Mean Corpuscular Volume 97.3 FL Mean Corpuscular Hemoglobin 33.3 PG Mean Corpuscular Hemoglobin 34.2 % Concent Red Cell Distribution Width 16.2 % Platelet Count 213 TH/MM3 Mean Platelet Volume 8.7 FL Neutrophils (%) (Auto) 62.3 % Lymphocytes (%) (Auto) 20.6 % Monocytes (%) (Auto) 9.6 % Eosinophils (%) (Auto) 6.5 % Basophils (%) (Auto) 1.0 % Neutrophils # (Auto) 4.3 TH/MM3 Lymphocytes # (Auto) 1.4 TH/MM3 Monocytes # (Auto) 0.7 TH/MM3 Eosinophils # (Auto) 0.4 TH/MM3 Basophils # (Auto) 0.1 TH/MM3 CBC Comment DIFF FINAL Differential Comment Sodium Level 130 MEQ/L Potassium Level 4.6 MEQ/L Chloride Level 96 MEQ/L Carbon Dioxide Level 23.0 MEQ/L Anion Gap 11 MEQ/L Blood Urea Nitrogen 34 MG/DL Creatinine 5.95 MG/DL Estimat Glomerular Filtration 8 ML/MIN Rate Random Glucose 75 MG/DL Calcium Level 8.5 MG/DL Total Creatine Kinase 58 U/L Triglycerides Level 47 MG/DL Cholesterol Level 95 MG/DL LDL Cholesterol 9 MG/DL HDL Cholesterol 76.2 MG/DL Cholesterol/HDL Ratio 1.24 RATIO Assessment and Plan Problem List: (1) Anemia (2) Shortness of breath (3) Hypoxia (4) Pulmonary edema (5) NSTEMI (non-ST elevated myocardial infarction) (6) Elevated troponin (7) Atrial fibrillation (8) Aortic stenosis (9) CAD (coronary artery disease) (10) ESRD (end stage renal disease) (11) Cardiomyopathy Assessment and Plan 1.) NSTEMI - stable s/p pci bms x 2 lad, ok to dc on aspirin, plavix, dc lipitor due to ldl=9. d/w Dr Eaton Problem Qualifiers (1) Atrial fibrillation: Qualified Code: I48.91 - Atrial fibrillation, unspecified type (2) Aortic stenosis: Qualified Code: I35.0 - Aortic valve stenosis, unspecified etiology (3) CAD (coronary artery disease): Qualified Code: I25.10 - Coronary artery disease involving [place] coronary artery of [place] heart without angina pectoris (4) Cardiomyopathy: Qualified Code: I42.9 - Cardiomyopathy, unspecified type Zohaib Valentin MD Apr 07, 2016 14:24
--- NOTE | 2016-04-07 16:01 | HHI.PR ---
Subjective Interval History Alert, verbal, feeling extremely weak, no chest pain, no difficulty breathing, Review of Systems Constitutional Constitutional Remarks 10 systems reviewed and otherwise negative Vitals/Results Intake & Output 04/06/16 04/06/16 04/07/16 15:00 23:00 07:00 Intake Total 3700 ml 240 ml Output Total 400 ml 125 ml Balance 3300 ml 115 ml Intake Oral 1200 ml 240 ml IV Total 2500 ml Output Urine Total 400 ml 125 ml Stool Total 0 ml # Voids 2 Vital Signs Vital Signs Date Time Temp Pulse Resp B/P Pulse Ox O2 Delivery O2 Flow Rate FiO2 04/07/16 11:07 04/07/16 10:37 99 21 04/07/16 09:51 97.0 78 18 138/45 98 04/07/16 04:16 79 16 122/69 99 04/06/16 23:39 99.1 70 16 121/64 99 04/06/16 23:00 70 04/06/16 22:00 67 04/06/16 21:00 77 04/06/16 20:00 68 04/06/16 19:58 98 04/06/16 19:52 98.5 66 16 112/41 99 04/06/16 19:46 98.5 66 16 112/41 99 04/06/16 19:00 72 04/06/16 18:03 74 04/06/16 18:03 74 18 123/54 96 04/06/16 17:08 80 18 134/54 98 04/06/16 17:07 80 04/06/16 16:47 72 18 130/50 04/06/16 16:09 132/66 04/06/16 16:08 130/64 04/06/16 16:00 65 CBC/BMP: 04/07/16 0448 04/07/16 0448 Lab Results Laboratory Tests Test 04/07/16 04:48 White Blood Count 6.8 TH/MM3 Red Blood Count 2.63 MIL/MM3 Hemoglobin 8.8 GM/DL Hematocrit 25.6 % Mean Corpuscular Volume 97.3 FL Mean Corpuscular Hemoglobin 33.3 PG Mean Corpuscular Hemoglobin 34.2 % Concent Red Cell Distribution Width 16.2 % Platelet Count 213 TH/MM3 Mean Platelet Volume 8.7 FL Neutrophils (%) (Auto) 62.3 % Lymphocytes (%) (Auto) 20.6 % Monocytes (%) (Auto) 9.6 % Eosinophils (%) (Auto) 6.5 % Basophils (%) (Auto) 1.0 % Neutrophils # (Auto) 4.3 TH/MM3 Lymphocytes # (Auto) 1.4 TH/MM3 Monocytes # (Auto) 0.7 TH/MM3 Eosinophils # (Auto) 0.4 TH/MM3 Basophils # (Auto) 0.1 TH/MM3 CBC Comment DIFF FINAL Differential Comment Sodium Level 130 MEQ/L Potassium Level 4.6 MEQ/L Chloride Level 96 MEQ/L Carbon Dioxide Level 23.0 MEQ/L Anion Gap 11 MEQ/L Blood Urea Nitrogen 34 MG/DL Creatinine 5.95 MG/DL Estimat Glomerular Filtration 8 ML/MIN Rate Random Glucose 75 MG/DL Calcium Level 8.5 MG/DL Total Creatine Kinase 58 U/L Triglycerides Level 47 MG/DL Cholesterol Level 95 MG/DL LDL Cholesterol 9 MG/DL HDL Cholesterol 76.2 MG/DL Cholesterol/HDL Ratio 1.24 RATIO Physical Exam General General Appearance: Well Developed, No Acute Distress, Comfortable Eyes Eye Exam: Pupils Equal, Pupils Reactive Throat Throat Exam: Oral Mucosa [place] & Moist Neck Neck Exam: Neck Supple, Trachea Midline Pulmonary Resp Exam: Breath Sounds Equal, No Distress Cardiology CV Exam: Regular, Normal Sinus Rhythm, Murmur Gastrointestinal/Abdomen GI Exam: Soft, Non-Tender, Bowel Sounds Present Musculoskeletal MS Exam: Normal Tone Integumentary Skin Exam: Clear, Warm, Dry Skin Remarks Right groin with clean dry dressing Extremeties Extremities Exam: No Edema Neurologic Neuro Exam: Alert, Awake, Oriented, Speech Clear, Moving All Extremities Psychiatric Psych Exam: Appropriate Responses Assessment/Plan Assessment/Plan Assessment and Plan Assessment and Plan Problem List: (1) Chest pain, coronary disease, status post coronary stenting on 04/06/16 (2) ESRD (end stage renal disease) (3) CAD (coronary artery disease) (4) Aortic stenosis (5) Atrial fibrillation, on long-term anticoagulation (6) Cardiomyopathy (7) Hypertension (8) Hyperlipidemia (9) Depression (10) Anxiety (11) Hypothyroid Plan Plavix for 1 year Baby aspirin Continue ELIQUIS Discussed with Dr. Valentin pain control End-stage renal disease, on hemodialysis Possible home tomorrow Check labs in the morning Telemetry Discussed with patient Discussed with nurse Evens García MD Apr 07, 2016 16:01
--- NOTE | 2016-04-07 23:00 | EKG ---
Date Performed: 04/07/2016 Time Performed: 06:17:34 PTAGE: 85 years EKG: Sinus rhythm with PAC(s) Possible left anterior fascicular block PVCs Anterolateral T wave changes may be due to hypertrophy and/or ischemia Abnormal ECG PREVIOUS TRACING : 04/06/2016 15.19 DOCTOR: Anne-Marie Bey Interpretating Date/Time 04/07/2016 23:00:22
--- NOTE | 2016-04-07 23:31 | EKG ---
Date Performed: 04/06/2016 Time Performed: 15:19:18 PTAGE: 85 years EKG: Sinus rhythm Left ventricular hypertrophy Extensive ST-T changes may be due to hypertrophy and/or ischemia Abnorm al ECG PREVIOUS TRACING : 04/03/2016 11.15 DOCTOR: Anne-Marie Bey Interpretating Date/Time 04/07/2016 23:28:15
[2016-04-08] VITALS (26 sets, daily range): BP systolic 100–144; BP diastolic 46–67; PULSE 59–94; RESP 16–18; TEMP 98.4–99.2; O2SAT 95–100
[2016-04-08] MEDS: ASPIRIN 81 MG CHEW TAB PO SCH (08:36)
[2016-04-08] MEDS: CLOPIDOGREL 75 MG TAB PO SCH (08:36)
[2016-04-08] MEDS: MULTIVITAMINS/MINERALS THERAPEUTIC TAB PO SCH (08:37)
[2016-04-08] MEDS: CINACALCET HYDROCHLORIDE 30 MG TAB PO SCH (08:37)
[2016-04-08] MEDS: VITAMIN B CMPLX/VITC/FOLIC AC CAP PO SCH (08:37)
[2016-04-08] MEDS: MEGESTROL ACETATE SUSP 400 MG/10 ML CUP PO SCH (08:38)
[2016-04-08] MEDS: CITALOPRAM HYDROBROMIDE 20 MG TAB PO SCH (08:38)
[2016-04-08] MEDS: SODIUM CHLORIDE 0.9% FLUSH 5 ML FLUSH FLUSH SCH ×2 (09:00→21:21)
[2016-04-08] MEDS: CARVEDILOL 12.5 MG TAB PO SCH ×2 (09:00→21:19)
[2016-04-08] MEDS: DOCUSATE SODIUM 100 MG CAP PO SCH ×2 (09:00→21:00)
--- NOTE | 2016-04-08 11:02 | HHI.NPPN ---
Subjective Complaints: Confused, Shortness of Breath General Problems: Anemia Renal Failure: Chronic, End Stage Renal Disease Review of Systems General Constitutional: Fatigue Objective Data Data 04/07/16 04/08/16 19:00 07:00 Intake Total 960 ml Output Total 3000 ml Balance -2040 ml Intake Oral 960 ml IV Total 0 ml Hemodialysis 3000 ml # Voids 1 1 # Bowel Movements 1 Vital Signs Date Time Temp Pulse Resp B/P Pulse Ox O2 Delivery O2 Flow Rate FiO2 04/08/16 07:30 99.2 72 18 144/66 100 04/08/16 06:00 80 04/08/16 05:00 72 04/08/16 04:37 95 04/08/16 04:00 66 04/08/16 03:00 68 04/08/16 02:00 66 04/08/16 01:00 72 04/08/16 00:00 73 04/07/16 23:00 70 04/07/16 22:00 66 04/07/16 21:00 68 04/07/16 20:00 75 04/07/16 11:07 -: 04/07/16 0448 04/07/16 0448 Physical Exam General Appearance: Well Developed, No Acute Distress, Comfortable Eyes Eye Exam: Pupils Equal, Pupils Reactive Throat Throat Exam: Oral Mucosa [place] & Moist Neck Neck Exam: Neck Supple, Trachea Midline Pulmonary Resp Exam: Breath Sounds Equal, No Distress Cardiology CV Exam: Regular, Normal Sinus Rhythm, Murmur Gastrointestinal/Abdomen GI Exam: Soft, Non-Tender, Bowel Sounds Present Musculoskeletal MS Exam: Normal Tone Integumentary Skin Exam: Clear, Warm, Dry Extremeties Extremities Exam: No Edema Neurologic Neuro Exam: Alert, Awake, Oriented, Speech Clear, Moving All Extremities Psychiatric Psych Exam: Appropriate Responses Assessment/Plan Discussed Condition With: Patient Assessment Summary: Anemia of CKD, Hypertension Problem List: (1) ESRD (end stage renal disease) Plan: HD MWF, she is due today she is seen during HD 1 L 3k/hco3 continue with HD SBO on GI drainage/suction (2) Chest pain Plan: Dr. Valentin following s/p left heart cath eliquis on hold , resume per cardiology appreciate further recommendations (3) Metabolic bone disease Plan: phosphorus was low, binders on hold will recheck and replace if needed (4) Anemia Plan: epogen with dialysis Plan patient was seen and examined. Agree with above assessment and plan. She is to be discharged. Seen during dialysis. On 3K, UF goal is 3 liters. Problem Qualifiers (1) Chest pain: Qualified Code: R07.9 - Chest pain, unspecified type Jack Gibson MD Apr 08, 2016 11:02
--- NOTE | 2016-04-08 15:11 | PD.CARD.PN ---
Subjective Subjective Remarks alert in nad Objective Vital Signs / I&O Vital Signs Date Time Temp Pulse Resp B/P Pulse Ox O2 Delivery O2 Flow Rate FiO2 04/08/16 14:00 94 04/08/16 13:00 68 04/08/16 12:00 66 04/08/16 11:15 98.9 63 18 100/46 97 04/08/16 11:00 68 04/08/16 10:00 66 04/08/16 09:00 62 04/08/16 08:00 68 04/08/16 07:30 99.2 72 18 144/66 100 04/08/16 07:00 69 04/08/16 06:00 80 04/08/16 05:00 72 04/08/16 04:37 95 04/08/16 04:00 66 04/08/16 03:00 68 04/08/16 02:00 66 04/08/16 01:00 72 04/08/16 00:00 73 04/07/16 23:00 70 04/07/16 22:00 66 04/07/16 21:00 68 04/07/16 20:00 75 I/O 04/07/16 04/07/16 04/07/16 04/08/16 04/08/16 04/08/16 07:00 15:00 23:00 07:00 15:00 23:00 Intake Total 240 ml 960 ml Output Total 125 ml 3000 ml Balance 115 ml -2040 ml Intake Oral 240 ml 960 ml IV Total 0 ml Output Urine Total 125 ml Stool Total 0 ml Hemodialysis 3000 ml # Voids 1 1 # Bowel Movements 1 Physical Exam GENERAL: SKIN: Warm and dry. HEAD: Normocephalic. EYES: No scleral icterus. No injection or drainage. NECK: Supple, trachea midline. No JVD or lymphadenopathy. CARDIOVASCULAR: Regular rate and rhythm without murmurs, gallops, or rubs. RESPIRATORY: Breath sounds equal bilaterally. No accessory muscle use. GASTROINTESTINAL: Abdomen soft, non-tender, nondistended. MUSCULOSKELETAL: No cyanosis, or edema. BACK: Nontender without obvious deformity. No CVA tenderness. Assessment and Plan Problem List: (1) Anemia (2) Shortness of breath (3) Hypoxia (4) Pulmonary edema (5) NSTEMI (non-ST elevated myocardial infarction) (6) Elevated troponin (7) Atrial fibrillation (8) Aortic stenosis (9) CAD (coronary artery disease) (10) ESRD (end stage renal disease) (11) Cardiomyopathy Assessment and Plan 1.) NSTEMI - stable s/p pci bms x 2 lad, ok to dc on aspirin, plavix, dc lipitor due to ldl=9. d/w Dr Eaton, f/u with me in office 04/10/16. d/w patient Problem Qualifiers (1) Atrial fibrillation: Qualified Code: I48.91 - Atrial fibrillation, unspecified type (2) Aortic stenosis: Qualified Code: I35.0 - Aortic valve stenosis, unspecified etiology (3) CAD (coronary artery disease): Qualified Code: I25.10 - Coronary artery disease involving [place] coronary artery of [place] heart without angina pectoris (4) Cardiomyopathy: Qualified Code: I42.9 - Cardiomyopathy, unspecified type Zohaib Valentin MD Apr 08, 2016 15:11
--- NOTE | 2016-04-08 15:46 | HHI.PR ---
Subjective Remarks 85yr old female seen and examined today. Denies any CP/SOB/NVD. Plan was to dc patient today. Per RN she called patient's daughter who stated that she needs to go to SNF. Objective Objective Results - Vital Signs Date Time Temp Pulse Resp B/P Pulse Ox O2 Delivery O2 Flow Rate FiO2 04/08/16 14:00 94 04/08/16 13:00 68 04/08/16 12:00 66 04/08/16 11:15 98.9 63 18 100/46 97 04/08/16 11:00 68 04/08/16 10:00 66 04/08/16 09:00 62 04/08/16 08:00 68 04/08/16 07:30 99.2 72 18 144/66 100 04/08/16 07:00 69 04/08/16 06:00 80 04/08/16 05:00 72 04/08/16 04:37 95 04/08/16 04:00 66 04/08/16 03:00 68 04/08/16 02:00 66 04/08/16 01:00 72 04/08/16 00:00 73 04/07/16 23:00 70 04/07/16 22:00 66 04/07/16 21:00 68 04/07/16 20:00 75 I/O 04/07/16 04/07/16 04/07/16 04/08/16 04/08/16 04/08/16 07:00 15:00 23:00 07:00 15:00 23:00 Intake Total 240 ml 960 ml Output Total 125 ml 3000 ml Balance 115 ml -2040 ml Intake Oral 240 ml 960 ml IV Total 0 ml Output Urine Total 125 ml Stool Total 0 ml Hemodialysis 3000 ml # Voids 1 1 # Bowel Movements 1 Result Diagram: 04/07/16 0448 04/07/16 0448 ROS General: No: Fatigue, Weakness, Other HEENT: No: Sore Throat, Dysphagia, Other Cardiac: No: Chest Pain, Edema, Palpitations, Other Pulmonary: No: Cough, SOB, Wheezing, Other GI: No: Abdominal Pain, BM, Diarrhea, N/V, Other /PLANER HAND: No: Dysuria, Urgency, Other Neuro/MS: No: Lightheaded, Confusion, Other Psych: No: Anxiety, Depression, Other Skin: No: Itching, Rash, Other Physical Exam Physical Exam PHYSICAL EXAMINATION GENERAL: This is a well-developed, well-nourished female who appears to be in no acute distress. She is alert and awake. HEAD: Normocephalic without any lesion or mass noted. Facial features appear symmetric. EYES: Perr[place], Normal eye movement. OROPHARYNGEAL: Oropharynx without erythema or edema. MOUTH/THROAT: Buccal mucosa is moist. NECK: Supple. No nuchal rigidity or lymphadenopathy. Trachea midline without deviation. Thyroid not palpable, no bruits appreciated. CARDIAC: Regular rhythm, regular rate, S1 and S2 are heard. LUNGS: Clear to auscultation bilaterally. ABDOMEN: Soft, nontender, no organomegaly or masses. Bowel sounds are heard in all four quadrants. No rebound. No guarding. EXTREMITIES: Trace pedal edema. Pulses equal bilateral. NEUROLOGICAL: Patient mood and affect appropriate. No focal deficits. SKIN:Warm and moist PSYCH: Mood and affect appropriate A/P Assessment and Plan (1) Chest pain, coronary disease, status post coronary stenting on 04/06/16 (2) ESRD (end stage renal disease) (3) CAD (coronary artery disease) (4) Aortic stenosis (5) Atrial fibrillation, on long-term anticoagulation (6) Cardiomyopathy (7) Hypertension (8) Hyperlipidemia (9) Depression (10) Anxiety (11) Hypothyroid Plan Plavix for 1 year Baby aspirin Ok to dc on ASA/plavix per Dr. Valentin. Follow-up with Dr. Valentin on 04/10/16. pain control End-stage renal disease, on hemodialysis Dc to [facility] in am. Telemetry Discussed with patient Discussed with nurse Barron Gabriel MD Apr 08, 2016 15:46
[2016-04-08] MEDS: LATANOPROST 0.005% OPHT SOLN 2.5 ML BTL EACH EYE SCH ×2 (21:00→21:20)
[2016-04-09] VITALS (16 sets, daily range): BP systolic 128–136; BP diastolic 63; PULSE 58–83; RESP 16; TEMP 98.5; O2SAT 99–100
[2016-04-09] MEDS: DOCUSATE SODIUM 100 MG CAP PO SCH (08:23)
[2016-04-09] MEDS: CITALOPRAM HYDROBROMIDE 20 MG TAB PO SCH (08:23)
[2016-04-09] MEDS: ASPIRIN 81 MG CHEW TAB PO SCH (08:23)
[2016-04-09] MEDS: VITAMIN B CMPLX/VITC/FOLIC AC CAP PO SCH (08:23)
[2016-04-09] MEDS: CLOPIDOGREL 75 MG TAB PO SCH (08:23)
[2016-04-09] MEDS: CARVEDILOL 12.5 MG TAB PO SCH (08:23)
[2016-04-09] MEDS: MEGESTROL ACETATE SUSP 400 MG/10 ML CUP PO SCH (08:24)
[2016-04-09] MEDS: MULTIVITAMINS/MINERALS THERAPEUTIC TAB PO SCH (08:24)
[2016-04-09] MEDS: SODIUM CHLORIDE 0.9% FLUSH 5 ML FLUSH FLUSH SCH (08:24)
[2016-04-09] MEDS: CINACALCET HYDROCHLORIDE 30 MG TAB PO SCH (08:24)
--- NOTE | 2016-04-09 12:42 | PD.CARD.PN ---
Subjective Subjective Remarks alert in nad Objective Vital Signs / I&O Vital Signs Date Time Temp Pulse Resp B/P Pulse Ox O2 Delivery O2 Flow Rate FiO2 04/09/16 07:30 98.5 75 16 128/63 100 04/09/16 06:00 70 04/09/16 05:00 68 04/09/16 04:38 83 16 136/63 99 04/09/16 04:00 66 04/09/16 03:00 75 04/09/16 02:00 66 04/09/16 01:00 66 04/09/16 00:00 66 04/08/16 23:30 59 16 114/54 99 04/08/16 23:00 67 04/08/16 22:00 66 04/08/16 21:00 70 04/08/16 20:00 72 04/08/16 19:00 70 04/08/16 19:00 98.4 78 16 103/48 97 04/08/16 17:37 97 21 04/08/16 15:00 98.8 78 18 121/67 99 04/08/16 14:00 94 04/08/16 13:00 68 I/O 04/08/16 04/08/16 04/08/16 04/09/16 04/09/16 04/09/16 07:00 15:00 23:00 07:00 15:00 23:00 Intake Total 300 ml Balance 300 ml Intake Oral 300 ml # Voids 1 1 # Bowel Movements 1 Physical Exam GENERAL: SKIN: Warm and dry. HEAD: Normocephalic. EYES: No scleral icterus. No injection or drainage. NECK: Supple, trachea midline. No JVD or lymphadenopathy. CARDIOVASCULAR: Regular rate and rhythm without murmurs, gallops, or rubs. RESPIRATORY: Breath sounds equal bilaterally. No accessory muscle use. GASTROINTESTINAL: Abdomen soft, non-tender, nondistended. MUSCULOSKELETAL: No cyanosis, or edema. BACK: Nontender without obvious deformity. No CVA tenderness. Assessment and Plan Problem List: (1) Anemia (2) Shortness of breath (3) Hypoxia (4) Pulmonary edema (5) NSTEMI (non-ST elevated myocardial infarction) (6) Elevated troponin (7) Atrial fibrillation (8) Aortic stenosis (9) CAD (coronary artery disease) (10) ESRD (end stage renal disease) (11) Cardiomyopathy Assessment and Plan 1.) NSTEMI - stable s/p pci bms x 2 lad, ok to dc on aspirin, plavix, dc lipitor due to ldl=9. d/w Dr Eaton, f/u with me in office 04/10/16. d/w patient Problem Qualifiers (1) Atrial fibrillation: Qualified Code: I48.91 - Atrial fibrillation, unspecified type (2) Aortic stenosis: Qualified Code: I35.0 - Aortic valve stenosis, unspecified etiology (3) CAD (coronary artery disease): Qualified Code: I25.10 - Coronary artery disease involving [place] coronary artery of [place] heart without angina pectoris (4) Cardiomyopathy: Qualified Code: I42.9 - Cardiomyopathy, unspecified type Zohaib Valentin MD Apr 09, 2016 12:42
--- NOTE | 2016-06-07 08:08 | MD ---
ADMISSION DATE: 04/05/2016 DISCHARGE DATE: 04/09/2016 ADMITTING DIAGNOSIS 1. Chest pain 2. Elevated troponin 3. End-stage renal disease DISCHARGE DIAGNOSIS 1. Chest pain/coronary disease status post coronary stenting on 04/06/2016. 2. Coronary artery disease 3. End-stage renal disease 4. Aortic stenosis 5. Atrial fibrillation on long-term anticoagulation 6. Cardiomyopathy 7. Hypertension 8. Hyperlipidemia 9. Depression 10. Hypothyroidism 11. Anxiety ADMITTING DOCTOR Dr. Deya Grimm DISCHARGE PHYSICIAN Dr. Barron Gabriel CONSULTS REQUESTED Dr. Zohaib Valentin, cardiology Dr. Lelo Chong, nephrology PROCEDURES DONE Chest x-ray on 04/03/2016 shows heart is enlarged, minimal parenchymal changes are seen in the left base with some a bronchogram. Right lung is clear. There is some paratracheal fullness on the right which appears to have progressed in the interval. Cardiac catheterization on 04/06/2016 which shows non-STEMI, successful PCI bare metal stent of the mid LAD from 60% to 0% with SOLO-3 flow. Twelve lead EKG's done on 04/03/2016 shows sinus rhythm with sinus arrhythmia, marked left axis deviation, left ventricular hypertrophy and ST and T changes. Twelve lead EKG on 04/06/2016 showed left ventricular hypertrophy extensive ST and T-wave changes may be due to hypertrophy and/or ischemia, abnormal EKG. Twelve lead EKG on 04/07/2016 shows sinus rhythm with PAC's possible left anterior fascicular block, PVC's anterolateral T-wave changes may be due to hypertrophy and/or ischemia. HOSPITAL COURSE The patient is an 85 year-old female who presented to the ER on 04/03/2016 for evaluation of chest pain. The patient was sent from the dialysis center as she has sharp chest pain. At the time of presentation, her hemoglobin was 10.3, hematocrit 31.0, sodium was 134, potassium 3.6, BUN 15, creatinine 3.4. Chest x-ray showed chronic cardiomegaly. Triglycerides: 47, cholesterol 95, LDL 9, HDL 76.2. As the LDL was 9, her Lipitor was discontinued. BNP at the time of admission was 2639. Two sets of troponin's, the first set was 0.08 and the second set was 0.09. Because of the patient's co-morbid condition, she was admitted for non-STEMI. Cardiology was consulted. Three sets of troponin's were requested and the patient was placed on continuous telemetry monitoring. The patient underwent cardiac cath on 04/06/16 with coronary artery stenting: PCI bare metal stent of the mid LAD. The patient was started on Plavix. Patient was monitored closely. Patient's condition started improving slowly. Physical therapy was consulted. As the patient has end-stage renal disease and is on dialysis, a nephrology consult was also requested. On 04/07/2016, her hemoglobin was 8.8, hematocrit was 25.6, BUN was 34, creatinine was 5.95, potassium was 4.6. All her vitals were stable. On 04/08/2016, the patient's condition was stable. She denied any chest pain or shortness of breath. As per daughter, the patient needs to go to the [facility]. Had a discussion with Dr. Valentin who recommended both Plavix and aspirin for one year. As patient was clinically and hemodynamically stable she was discharged to [facility]. DISCHARGE CONDITION Stable DISCHARGE DISPOSITION To [facility]. DISCHARGE MEDICATIONS 1. Plavix 75 mg p.o. daily, the patient needs to continue this for one year. 2. Continue the home medications Eliquis 2.5 mg p.o. twice a day 3. Aspirin 81 mg p.o. daily 4. Nephrovite 5. Carvedilol 12.5 mg p.o. twice a day 6. Colace 100 mg p.o. twice a day as needed 7. Multivitamin one p.o. daily 8. Renvela 800 mg p.o. three times a day 9. Travatan ophthalmic drops DISCONTINUED MEDICATIONS Atorvastatin DISCHARGE FOLLOW UP Follow up with primary care physician in one week. Follow up with cardiology in two to three days. Follow up with nephrology in one week. Spent more than 52minutes on discharge summary. MD SY Haynes
[2016-06-08] MEDS ORDERED: ULTR50TA5 PO (18:36)
[2016-06-08] MEDS ORDERED: ALPR.25 PO ×2 (18:36)
[2016-06-08] MEDS ORDERED: CEPH-460 PO (22:57)
== END 2016-04-09 13:47 | disposition home or self-care (01) | DRG 248 ==
LOC: NEPE 10:40 → NEDA 14:01 → NEPGCP 15:59 → HCIS 04-04 17:15 → HCVI 04-04 21:13 → OBSVTOIN 04-05 11:22
PROVIDERS: ADMIT Internal Medicine; ATTEND Internal Medicine
PROC: 5A1D60Z (ICD-10-PCS; 2016-04-05)
PROC: 4A033BC Measurement of Arterial Pressure, Coronary, Percutaneous Approach (ICD-10-PCS; 2016-04-06)
PROC: 4A023N8 Measurement of Cardiac Sampling and Pressure, Bilateral, Percutaneous Approach (ICD-10-PCS; 2016-04-06)
PROC: B2111ZZ Fluoroscopy of Multiple Coronary Arteries using Low Osmolar Contrast (ICD-10-PCS; 2016-04-06)
PROC: B2151ZZ Fluoroscopy of Left Heart using Low Osmolar Contrast (ICD-10-PCS; 2016-04-06)
PROC: 02703EZ Dilation of Coronary Artery, One Artery with Two Intraluminal Devices, Percutaneous Approach (ICD-10-PCS; principal; 2016-04-06 08:45)
DX: I21.4 Non-ST elevation (NSTEMI) myocardial infarction (principal); N18.6 End stage renal disease; I13.2 Hypertensive heart and chronic kidney disease with heart failure and with stage 5 chronic kidney disease, or end stage renal disease; E88.89 Other specified metabolic disorders; N25.81 Secondary hyperparathyroidism of renal origin; I42.9 Cardiomyopathy, unspecified; E87.70 Fluid overload, unspecified; I50.9 Heart failure, unspecified; F32.9 Major depressive disorder, single episode, unspecified; F41.9 Anxiety disorder, unspecified; G47.30 Sleep apnea, unspecified; K21.9 Gastro-esophageal reflux disease without esophagitis; E03.9 Hypothyroidism, unspecified; I35.0 Nonrheumatic aortic (valve) stenosis; I48.0 Paroxysmal atrial fibrillation; E78.5 Hyperlipidemia, unspecified; I25.10 Atherosclerotic heart disease of native coronary artery without angina pectoris; I73.9 Peripheral vascular disease, unspecified; R09.02 Hypoxemia; D63.1 Anemia in chronic kidney disease; Z79.01 Long term (current) use of anticoagulants; Z86.14 Personal history of Methicillin resistant Staphylococcus aureus infection; Z87.891 Personal history of nicotine dependence; Z88.5 Allergy status to narcotic agent; Z95.5 Presence of coronary angioplasty implant and graft; Z96.653 Presence of artificial knee joint, bilateral; Z99.2 Dependence on renal dialysis; Z96.643 Presence of artificial hip joint, bilateral
CPT/HCPCS: 71010; 76937; 80048; 80053; 80061; 80069; 82550; 82810; 83880; 84484; 85002; 85025; 85347; 85610; 85730; 90935; 92928; 93005; 93460; 93571; 96374; C1769; C1876; C1887; C1893; G0378; J0153; J0461; J1644; J3246; J7030; Q4081; Q9967

== ENCOUNTER 2016-05-09 14:30 | Inpatient (IN) | payer MEDICARE, BC ==
[~2016-05-09] VITALS: Ht 175.3 cm; Wt 66.0 kg
[~2016-05-09 14:30] MED LIST changes: -LIPI20TA PO; +PLAV75TA29 PO
[2016-05-09 14:42] VITALS: BP 156/74; PULSE 62; RESP 16; O2SAT 100
[2016-05-09] MEDS ORDERED: SODIUM CHLORIDE 0.9% FLUSH 10 ML FLUSH IVF PRN (15:00)
--- NOTE | 2016-05-09 15:02 | PD ---
HPI Chief Complaint: Chest Pain Time Seen by Provider: 14:44 Travel History International Travel<30 days: No Contact w/Intl Traveler<30days: No Traveled to known affect area: No History of Present Illness HPI The patient was seen and examined in the presence of the nurse. This patient complains of chest pain. Started this morning while she was lying in bed. It lasted for 5 hours and resolved spontaneously. Describes it as an aching pain in the center of her chest. Describes it as similar to pain she had a month ago prior to 2 stents being placed April 07, 2016. She is currently pain-free. Symptoms were moderately severe but are now absent. No alleviating factors. No shortness of breath or cough or fever. PFSH Past Medical History Anemia: Yes Arthritis: Yes Asthma: No Blood Disorders: No Anxiety: Yes Depression: Yes Heart Rhythm Problems: Yes Cancer: No Cardiac Catheterization: Yes (X3) Cardiovascular Problems: Yes High Cholesterol: No Chest Pain: Yes Congestive Heart Failure: Yes COPD: No Coronary Artery Disease: Yes Diabetes: No Endocrine: No Gastrointestinal Disorders: Yes (HEART BURN) GERD: Yes Genitourinary: Yes (ESRD - ON DIALYSIS) Hypertension: Yes Immune Disorder: No Implanted Vascular Access Dvce: Yes Musculoskeletal: Yes (LEFT HIP) Neurologic: Yes Psychiatric: Yes Reproductive: No Respiratory: No Integumentary: Yes (CELLULITIS L ARM) Immunizations Current: Yes Migraines: Yes Pneumonia: Yes Renal Failure: Yes Sleep Apnea: Yes (HAD CPAP IN PAST) Thyroid Disease: No : 4 Para: 0 Past Surgical History Abdominal Surgery: Yes Appendectomy: Yes Arteriovenous Shunt: Yes (RUE) Body Medical Devices: 3 CARDIAC STENTS, KIDNEY STENT, HX R CHEST DIALYSIS CATH Coronary Stent: Yes (X3) Eye Surgery: Yes (L CATARACT REMOVED) Genitourinary Surgery: Yes (STONES REMOVED, L KIDNEY STENT X3) Gynecologic Surgery: Yes (HYSTERECTOMY, KIDNEY STONE REMOVAL) Hysterectomy: Yes Joint Replacement: Yes (BILAT TOTAL HIP, BILAT TOTAL KNEE) Oral Surgery: Yes Tonsillectomy: Yes Other Surgery: Yes Social History Alcohol Use: Yes (RARE) Tobacco Use: No Substance Use: No Allergies-Medications (Allergen,Severity, Reaction): Coded Allergies: Dilaudid (Verified Allergy, Severe, ANAPHYLACTIC, 04/03/16) Morphine (Verified Allergy, Severe, ANAPHYLACTIC, 04/03/16) *MDRO Multi-Drug Resistant Organism (Verified Adverse Reaction, Unknown, ) 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 Reported Meds & Prescriptions Reported Meds & Active Scripts Active Plavix (Clopidogrel Bisulfate) 75 Mg Tab 75 Mg PO DAILY Furosemide 40 Mg Tab 40 Mg PO BID PRN Megestrol Liq (Megestrol Acetate) 40 Mg/Ml Susp 800 Mg PO DAILY Reported Nephro-Anne (B-Complex W/ C & Folic Acid) 1 Tab 1 Tab PO DAILY Sensipar (Cinacalcet) 30 Mg Tab 30 Mg PO DAILY Xanax (Alprazolam) 0.25 Mg Tab 0.25 Mg PO Q8H PRN Renvela (Sevelamer Carbonate) 800 Mg Tab 800 Mg PO TID Carvedilol 12.5 Mg Tab 12.5 Mg PO Q12HR Thera-M (Multiple Vitamins W/ Minerals) 1 Tab 1 Tab PO DAILY Tylenol (Acetaminophen) 325 Mg Cap 650 Mg PO Q4HR PRN Docusate Sodium 100 Mg Cap 100 Mg PO BID Eliquis (Apixaban) 2.5 Mg Tab 2.5 Mg PO BID Aspirin 81 Mg Tabdr 81 Mg PO DAILY Travatan Z Opth Drops (Travoprost) 0.004 % Soln 1 Drop EACH EYE HS PRN Viibryd (Vilazodone) 40 Mg Tab 40 Mg PO DAILY Review of Systems General / Constitutional: No: Fever Eyes: No: Visual changes HENT: No: Headaches Cardiovascular: Positive: Chest Pain or Discomfort Respiratory: No: Shortness of Breath Gastrointestinal: No: Abdominal Pain Genitourinary: No: Dysuria Musculoskeletal: No: Pain Skin: No Rash Neurologic: No: Weakness Psychiatric: No: Depression Endocrine: No: Polydipsia Hematologic/Lymphatic: No: Easy Bruising Physical Exam Narrative GENERAL: Well-nourished, well-developed patient in no apparent distress. SKIN: Focused skin assessment reveals no rash and nodules. Skin is Warm and dry. HEAD: Atraumatic. Normocephalic. EYES: Pupils equal and round. No scleral icterus. No injection or drainage. ENT: No nasal bleeding or discharge. Mucous membranes pink and moist. NECK: Trachea midline. No JVD. CARDIOVASCULAR: Regular rate and rhythm. No murmur appreciated. RESPIRATORY: No accessory muscle use. Clear to auscultation. Breath sounds equal bilaterally. GASTROINTESTINAL: Abdomen soft, non-tender, nondistended. Hepatic and splenic margins not palpable. MUSCULOSKELETAL: No obvious deformities. No clubbing. No cyanosis. No edema. NEUROLOGICAL: Awake and alert. No obvious cranial nerve deficits. Motor grossly within normal limits. Normal speech. PSYCHIATRIC: Appropriate mood and affect; insight and judgment normal. Data Data Last Documented VS Vital Signs Date Time Temp Pulse Resp B/P Pulse Ox O2 Delivery O2 Flow Rate FiO2 05/09/16 15:12 98 05/09/16 15:12 16 Room Air 05/09/16 14:42 62 156/74 Orders Electrocardiogram (05/09/16 14:56) Basic Metabolic Panel (Bmp) (05/09/16 14:56) Ckmb (Isoenzyme) Profile (05/09/16 14:56) Complete Blood Count With Diff (05/09/16 14:56) Prothrombin Time / Inr (Pt) (05/09/16 14:56) Act Partial Throm Time (Ptt) (05/09/16 14:56) Troponin I (05/09/16 14:56) Chest, Single Ap (05/09/16 14:56) Ecg Monitoring (05/09/16 14:56) Iv Access Insert/Monitor (05/09/16 14:56) Oximetry (05/09/16 14:56) Sodium Chloride 0.9% Flush (Ns Flush) (05/09/16 15:00) Admit Order (Ed Use Only) (05/09/16 16:51) Labs Laboratory Tests Test 05/09/16 15:00 White Blood Count 4.9 TH/MM3 Red Blood Count 1.94 MIL/MM3 Hemoglobin 6.8 GM/DL Hematocrit 19.1 % Mean Corpuscular Volume 98.5 FL Mean Corpuscular Hemoglobin 34.9 PG Mean Corpuscular Hemoglobin 35.4 % Concent Red Cell Distribution Width 15.8 % Platelet Count 254 TH/MM3 Mean Platelet Volume 7.8 FL Neutrophils (%) (Auto) 55.5 % Lymphocytes (%) (Auto) 24.7 % Monocytes (%) (Auto) 12.6 % Eosinophils (%) (Auto) 6.3 % Basophils (%) (Auto) 0.9 % Neutrophils # (Auto) 2.7 TH/MM3 Lymphocytes # (Auto) 1.2 TH/MM3 Monocytes # (Auto) 0.6 TH/MM3 Eosinophils # (Auto) 0.3 TH/MM3 Basophils # (Auto) 0.0 TH/MM3 CBC Comment DIFF FINAL Differential Comment Prothrombin Time 11.3 SEC Prothromb Time International 1.0 RATIO Ratio Activated Partial 28.7 SEC Thromboplast Time Sodium Level 134 MEQ/L Potassium Level 5.5 MEQ/L Chloride Level 100 MEQ/L Carbon Dioxide Level 27.1 MEQ/L Anion Gap 7 MEQ/L Blood Urea Nitrogen 32 MG/DL Creatinine 4.11 MG/DL Estimat Glomerular Filtration 12 ML/MIN Rate Random Glucose 81 MG/DL Calcium Level 9.0 MG/DL Total Creatine Kinase 75 U/L Troponin I 0.04 NG/ML [facility] Medical Decision Making Medical Screen Exam Complete: Yes Emergency Medical Condition: Yes Medical Record Reviewed: Yes Differential Diagnosis Differential diagnosis includes DE, angina, pericarditis, pleurisy, GERD, anxiety. Narrative Course I have reviewed the patient's electronic medical record. Reviewed her April 07, 2016 catheterization report where 2 stents were placed IV placed I reviewed the EKG which shows sinus rhythm and no acute ST elevation I reviewed the chest x-ray shows questionable aortic widening suggesting possibly a mass or aneurysm. Extended cardiac monitoring shows sinus rhythm without ectopy CBC shows significant anemia with 6.8 hemoglobin Metabolic profile shows elevated creatinine of 4 on dialysis CK is normal Troponin is normal Coagulation studies are normal Patient had aspirin and Plavix and Eliquis today No evidence of GI bleed by history or rectal exam with Hemoccult negative stool I reviewed with primary physician Dr. Marx who will admit He recommends transfusing a unit of blood and asked me to order that Patient is on hospice but she wants admission and full evaluation of her medical problems. I will let him decide how to approach the abnormal chest x- ray. Sepsis Criteria Sepsis Criteria (SIRS+source): Infect source susp/known Diagnosis Primary Impression: Chest pain Qualified Code: R07.2 - Precordial pain Additional Impression: CAD (coronary artery disease) Qualified Code: I25.10 - Coronary artery disease due to calcified coronary lesion Admitting Information Admitting Physician Requests: Admit Ab Hayden MD May 09, 2016 15:02
[2016-05-09 15:12] VITALS: O2SAT 98
[2016-05-09 15:32] LABS: AUTOMATED NEUTROPHIL # 2.7 TH/MM3 (1.8-7.7); BASOPHIL % 0.9 % (0.0-2.0); EOSINOPHIL # 0.3 TH/MM3 (0-0.4); EOSINOPHIL % 6.3 % (0.0-4.0); LYMPH % 24.7 % (9.0-44.0); LYMPHOCYTE # 1.2 TH/MM3 (1.0-4.8); MEAN CELL VOLUME 98.5 FL (80.0-100.0); MEAN CORPUSCULAR HEMOGLOBIN 34.9 PG (27.0-34.0); MEAN CORPUSCULAR HGB CONC 35.4 % (32.0-36.0); MONO % 12.6 % (0.0-8.0); NEUT % 55.5 % (16.0-70.0); PLATELET COUNT 254 TH/MM3 (150-450); RED BLOOD COUNT 1.94 MIL/MM3 (4.00-5.30); RED CELL DISTRIBUTION WIDTH 15.8 % (11.6-17.2); WHITE BLOOD COUNT 4.9 TH/MM3 (4.0-11.0)
[2016-05-09 15:38] LABS: HEMO FLAGS DIFF FINAL
[2016-05-09 15:41] LABS: HEMATOCRIT 19.1 % (35.0-46.0)
[2016-05-09 15:48] LABS: APTT (PATIENT) 28.7 SEC (24.3-30.1); PROTHROMBIN TIME - PATIENT 11.3 SEC (9.8-11.6)
[2016-05-09 15:59] LABS: BICARBONATE 27.1 MEQ/L (21.0-32.0); POTASSIUM 5.5 MEQ/L (3.5-5.1)
--- NOTE | 2016-05-09 16:12 | RADRPT ---
EXAM DATE/TIME: 05/09/2016 14:58 [facility] COMPARISON: CHEST SINGLE AP, April 03, 2016, 11:26. INDICATIONS : Chest pain. MEDICAL HISTORY : None. SURGICAL HISTORY : 3 stents ENCOUNTER: Initial ACUITY: 1 day PAIN SCORE: 2/10 LOCATION: Bilateral chest FINDINGS: The heart is enlarged. There are COPD changes. The exam demonstrates a possible superior mediastinal mass. CT imaging of the thorax is warranted for further assessment. The visualized bony structures are intact. CONCLUSION: 1. Possible superior mediastinal mass versus aneurysm. The superior mediastinum appears somewhat wide pita. 2. COPD changes. 3. Cardiomegaly. Yehuda Hanna MD on May 09, 2016 at 16:09 Board Certified Radiologist. This report was verified electronically.
[2016-05-09 16:58] VITALS: BP 165/69; PULSE 63; RESP 16; O2SAT 96
[2016-05-09] MEDS ORDERED: LATANOPROST 0.005% OPHT SOLN 2.5 ML BTL EACH EYE PRN (17:30)
[2016-05-09] MEDS ORDERED: NALOXONE HCL 0.4 MG/ML AMP IV PRN (17:30)
[2016-05-09] MEDS ORDERED: SODIUM CHLORIDE 0.9% FLUSH 10 ML FLUSH IV FLUSH PRN (17:30)
[2016-05-09] MEDS ORDERED: BISACODYL 10 MG SUPP RECTAL PRN (17:30)
[2016-05-09] MEDS ORDERED: ONDANSETRON HCL 4 MG/2 ML VIAL IVP PRN (17:30)
[2016-05-09] MEDS: SEVELAMER CARBONATE 800 MG TAB PO SCH (18:00)
[2016-05-09 20:00] VITALS: BP 175/77; PULSE 72; RESP 18; TEMP 98.2; O2SAT 100
[2016-05-09] MEDS: CARVEDILOL 12.5 MG TAB PO SCH (20:04)
[2016-05-09] MEDS: DOCUSATE SODIUM 100 MG CAP PO SCH (20:04)
[2016-05-09] MEDS: ACETAMINOPHEN 325 MG TAB PO PRN (20:05)
[2016-05-09] MEDS: SODIUM CHLORIDE 0.9% FLUSH 10 ML FLUSH IV FLUSH SCH (20:07)
[2016-05-09 21:21] VITALS: BP 138/62; PULSE 59; RESP 16; TEMP 97.6
[2016-05-09 21:36] VITALS: BP 139/64; PULSE 60; RESP 16; TEMP 97.6; O2SAT 99
[2016-05-09] MEDS: APIXABAN 2.5 MG TABLET PO SCH (21:50)
[2016-05-10] VITALS (7 sets, daily range): BP systolic 143–193; BP diastolic 67–99; PULSE 65–96; RESP 16–20; TEMP 98.1–99.2; O2SAT 96–100
[2016-05-10] MEDS ORDERED: SODIUM CHLOR 0.9% 1000 ML INJ 1,000 ML IV PRN ×3 (07:43)
[2016-05-10] MEDS ORDERED: MANNITOL 12.5 GM/50 ML VIAL IV PRN (07:45)
[2016-05-10] MEDS ORDERED: HEPARIN SODIUM - IV 10,000 UNITS/10 ML VIAL PRN (07:45)
[2016-05-10] MEDS ORDERED: ONDANSETRON HCL 4 MG/2 ML VIAL IV PRN (07:45)
[2016-05-10] MEDS ORDERED: SODIUM CHLORIDE 0.9% FLUSH 10 ML FLUSH IV FLUSH PRN (07:45)
[2016-05-10] MEDS ORDERED: HEPARIN SODIUM - IV 10,000 UNITS/10 ML VIAL IVF PRN (07:45)
[2016-05-10] MEDS ORDERED: ALBUMIN HUMAN 25% 25 GM/100 ML BAGP IV PRN (07:45)
[2016-05-10] MEDS ORDERED: GENTAMICIN SULFATE (DIALYSIS USE ONLY) 20 MG/2 ML VIAL IV PRN (07:45)
[2016-05-10] MEDS ORDERED: cloNIDine HCL 0.1 MG TAB PO PRN (07:45)
[2016-05-10] MEDS ORDERED: GELATIN 12 MM/7 MM FOAM TOP PRN (07:45)
--- NOTE | 2016-05-10 07:52 | PD.CONS ---
HPI Service Nephrology Consult Requested By Primary Care Physician Ashlyn Mao MD History of Present Illness Ms. Meehan is 85 year old with history of ESRD on HD MWF. She is admitted with chest pain. History of CHF, CAD. She is noted to be anemic as well. Needs dialysis today. 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 Past Medical History Hypertension Secondary hyperparathyroidism CHF CAD ESRD Anemia Reported Medications Plavix (Clopidogrel Bisulfate) 75 Mg Tab 75 Mg PO DAILY Furosemide 40 Mg Tab 40 Mg PO BID PRN Megestrol Liq (Megestrol Acetate) 40 Mg/Ml Susp 800 Mg PO DAILY Reported Nephro-Anne (B-Complex W/ C & Folic Acid) 1 Tab 1 Tab PO DAILY Sensipar (Cinacalcet) 30 Mg Tab 30 Mg PO DAILY Xanax (Alprazolam) 0.25 Mg Tab 0.25 Mg PO Q8H PRN Renvela (Sevelamer Carbonate) 800 Mg Tab 800 Mg PO TID Carvedilol 12.5 Mg Tab 12.5 Mg PO Q12HR Thera-M (Multiple Vitamins W/ Minerals) 1 Tab 1 Tab PO DAILY Tylenol (Acetaminophen) 325 Mg Cap 650 Mg PO Q4HR PRN Docusate Sodium 100 Mg Cap 100 Mg PO BID Eliquis (Apixaban) 2.5 Mg Tab 2.5 Mg PO BID Aspirin 81 Mg Tabdr 81 Mg PO DAILY Travatan Z Opth Drops (Travoprost) 0.004 % Soln 1 Drop EACH EYE HS PRN Viibryd (Vilazodone) 40 Mg Tab 40 Mg PO DAILY Active Ordered Medications Current Medications Medications (Trade) Dose Ordered Sig/Thierry Route Start Time Stop Time Status Last Admin (Xanax) 0.25 mg Q8H PRN PO 4/4/17 17:15 (Eliquis) 2.5 mg BID PO 05/09/16 21:00 05/09/16 21:50 (Ecotrin Ec) 81 mg DAILY PO 05/10/16 09:00 (Coreg) 12.5 mg Q12HR PO 05/09/16 21:00 05/09/16 20:04 (Plavix) 75 mg DAILY PO 05/10/16 09:00 (Colace) 100 mg BID PO 05/09/16 21:00 05/09/16 20:04 (Renvela) 800 mg TID PO 05/09/16 18:00 (Xalatan 0.005% Opth Soln) 1 drop HS PRN EACH EYE 05/09/16 17:30 (NS Flush) 2 ml UNSCH PRN IV FLUSH 05/09/16 17:30 05/10/16 00:19 (NS Flush) 2 ml BID IV FLUSH 05/09/16 21:00 05/09/16 20:07 (Tylenol) 650 mg Q4H PRN PO 05/09/16 17:30 05/09/16 20:05 (Zofran Inj) 4 mg Q6H PRN IVP 05/09/16 17:30 (Dulcolax Supp) 10 mg DAILY PRN RECTAL 05/09/16 17:30 (Ambien) 5 mg HS PRN PO 05/09/16 17:30 Naloxone HCl 0.4 mg 0.4 mg UNSCH PRN IV 05/09/16 17:30 (NS 1000 ml Inj) 1,000 ml @ 0 mls/hr Q0M PRN IV 05/10/16 07:43 UNV Heparin Sodium (Porcine) 8000 units 8,000 units UNSCH PRN IVF 05/10/16 07:45 UNV Sodium Chloride 1,000 ml @ 200 mls/hr Q5H PRN IV 05/10/16 07:43 UNV (NS 1000 ml Inj) 1,000 ml @ 0 mls/hr Q0M PRN IV 05/10/16 07:43 UNV (NS Flush) 5 ml UNSCH PRN IV FLUSH 05/10/16 07:45 UNV (Gentamicin (Dialysis) Inj) 20 mg UNSCH PRN IV 05/10/16 07:45 UNV Family History reviewed, non contributory Social History Lives in an JAIL No tobacco, no ETOH. Physical Exam Vital Signs Vital Signs Date Time Temp Pulse Resp B/P Pulse Ox O2 Delivery O2 Flow Rate FiO2 05/10/16 04:00 98.1 65 18 148/70 98 05/10/16 00:15 98.6 68 16 167/80 100 05/09/16 21:36 97.6 60 16 139/64 99 05/09/16 21:21 97.6 59 16 138/62 05/09/16 20:00 98.2 72 18 175/77 100 05/09/16 16:58 63 16 165/69 96 Room Air 05/09/16 15:12 98 05/09/16 15:12 16 98 Room Air 05/09/16 14:42 62 16 156/74 100 Physical Exam GENERAL: frail, elderly lady, she has lost weight recently. SKIN: Warm and dry. HEAD: Normocephalic. EYES: No scleral icterus. No injection or drainage. NECK: Supple, trachea midline. No JVD or lymphadenopathy. CARDIOVASCULAR: Regular rate and rhythm without murmurs, gallops, or rubs. RESPIRATORY: Rales bilaterally. GASTROINTESTINAL: Abdomen soft, non-tender, nondistended. MUSCULOSKELETAL: No cyanosis, or edema. BACK: Nontender without obvious deformity. No CVA tenderness. Laboratory Laboratory Tests Test 05/09/16 05/09/16 15:00 18:28 White Blood Count 4.9 Red Blood Count 1.94 Hemoglobin 6.8 Hematocrit 19.1 Mean Corpuscular Volume 98.5 Mean Corpuscular Hemoglobin 34.9 Mean Corpuscular Hemoglobin 35.4 Concent Red Cell Distribution Width 15.8 Platelet Count 254 Mean Platelet Volume 7.8 Neutrophils (%) (Auto) 55.5 Lymphocytes (%) (Auto) 24.7 Monocytes (%) (Auto) 12.6 Eosinophils (%) (Auto) 6.3 Basophils (%) (Auto) 0.9 Neutrophils # (Auto) 2.7 Lymphocytes # (Auto) 1.2 Monocytes # (Auto) 0.6 Eosinophils # (Auto) 0.3 Basophils # (Auto) 0.0 CBC Comment DIFF FINAL Differential Comment Prothrombin Time 11.3 Prothromb Time International 1.0 Ratio Activated Partial 28.7 Thromboplast Time Sodium Level 134 Potassium Level 5.5 Chloride Level 100 Carbon Dioxide Level 27.1 Anion Gap 7 Blood Urea Nitrogen 32 Creatinine 4.11 Estimat Glomerular Filtration 12 Rate Random Glucose 81 Calcium Level 9.0 Total Creatine Kinase 75 Troponin I 0.04 Blood Type O NEGATIVE Antibody Screen NEGATIVE Crossmatch Leukocyte-Reduced Red Blood Cells Blood Bank Comment Result Diagram: 05/09/16 1500 05/09/16 1500 Assessment and Plan Problem List: (1) ESRD (end stage renal disease) Plan: Patient needs to be dialyzed today. We will dialyze her MWF. Continue to monitor fluid and electrolytes. Avoid Gadolinium. (2) Cardiomyopathy Plan: Monitor. Fluid removal with dialysis. (3) Anemia Plan: Rule out bleeding, especially since she is on anticoagulation. Blood transfusion. Epogen. Obtain iron studies. (4) Atrial fibrillation Plan: Rate control measures. She has been placed on Eliquis. Assessment and Plan Thanks for the consult. We will follow. CXR report reviewed, some widening of mediastinum, may need CT scan. Roland Miramontes MD May 10, 2016 07:52
[2016-05-10] MEDS ORDERED: SODIUM CHLOR 0.9% 250 ML INJ 250 ML IV ONE (08:15)
[2016-05-10] MEDS: ACETAMINOPHEN 325 MG TAB PO PRN ×3 (08:23→19:28)
[2016-05-10] MEDS: DOCUSATE SODIUM 100 MG CAP PO SCH ×2 (08:24→20:26)
[2016-05-10] MEDS: SEVELAMER CARBONATE 800 MG TAB PO SCH ×4 (08:24→15:29)
[2016-05-10] MEDS: APIXABAN 2.5 MG TABLET PO SCH (08:24)
[2016-05-10] MEDS: CARVEDILOL 12.5 MG TAB PO SCH ×2 (08:25→20:26)
[2016-05-10] MEDS: SODIUM CHLORIDE 0.9% FLUSH 10 ML FLUSH IV FLUSH SCH ×2 (08:25→21:00)
[2016-05-10] MEDS: NITROGLYCERIN 0.4 MG SL 25 TABS/BTL SL PRN ×2 (08:36→08:42)
[2016-05-10] MEDS: MEGESTROL ACETATE SUSP 400 MG/10 ML CUP PO SCH (08:37)
[2016-05-10] MEDS ORDERED: CLOPIDOGREL 75 MG TAB PO SCH (09:00)
[2016-05-10] MEDS ORDERED: ASPIRIN EC 81 MG TABEC PO SCH (09:00)
--- NOTE | 2016-05-10 10:00 | MH ---
cc: EDDI BENJAMIN MD DATE OF ADMISSION 05/09/2016 CHIEF COMPLAINT Chest pain HISTORY OF PRESENT ILLNESS Jackson Meehan is an 85-year-old -[place] female. She is a resident of the [facility]. She was on Hospice with [facility] there. Per the nursing staff there at the [facility], started having chest pain. The patient was requesting evaluation and ended up calling EMS and she was transported to [place] emergency room. She was found to have severe anemia and I was called by the emergency room doctor for admission. I suggested he give her one unit. She was symptomatic with chest pain and hemoglobin of 6.8. The patient states she is still is having left-sided chest pain. She states it is deep in her left chest wall and under her left arm. She is agitated and angry about being here. She is unsure what happened. She does not recall the events of yesterday. Nursing staff there reports that she did not have a syncopal event or have any other new findings. LABORATORY DATA Hemoglobin 6.8, creatinine 4.11, potassium 5.5, sodium 34, INR 1.0. IMAGING STUDIES Chest x-ray shows superior mediastinal mass versus aneurysm and mediastinum appears widened, COPD changes and cardiomegaly. PAST MEDICAL HISTORY 1. End-stage renal disease on hemodialysis 2. Anemia 3. Anxiety 4. Depression 5. CHF 6. COPD 7. Gastroesophageal reflux disease 8. Migraines 9. Sleep apnea PAST SURGICAL HISTORY 1. Appendectomy 2. Right upper extremity AV shunt 3. Cardiac stents 4. Kidney stent 5. Left cataract 6. Nephrolithiasis 7. Renal stone removal 8. Hysterectomy 9. Kidney stone removal 10. Bilateral hip replacement 11. Bilateral total knee arthroplasty 12. Tonsillectomy SOCIAL HISTORY No alcohol, tobacco or illicit drug usage. 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 ALLERGIES DILAUDID, MORPHINE MEDICATIONS Home medications are: 1. Plavix 2. Lasix 3. Megace 4. Nephrovite 5. Sensipar 6. Xanax 7. Renvela 8. Carvedilol 9. Tylenol 10. Colace 11. Eliquis 12. Aspirin 13. Travatan 14. Viibryd REVIEW OF SYSTEMS Left-sided chest pain, increased anxiety and agitation, negative 14-point review of systems otherwise. She has had no syncope or increased shortness of breath. PHYSICAL EXAM VITAL SIGNS: Temperature 98.1, pulse 65, respirations 18, blood pressure 148/70, pulse 98, respirations 18. GENERAL: She is an alert -[place] female. She is at her baseline. She is agitated. CHEST: Clear. CARDIOVASCULAR: Regular rate and rhythm. ABDOMEN: Soft, nontender. EXTREMITIES: No edema. SKIN: Clear. NEUROLOGIC: A and O times two. Cranial nerves are intact. No focal deficits. MUSCULOSKELETAL: She has pain on her left upper chest wall and left ribs number 3, 4, and 5 in the anterior aspect and mostly over the costochondral junction. The skin is clear. ASSESSMENT 1. Chest pain 2. Widened mediastinum on chest x-ray, possibly being an aneurysm 3. COPD 4. End-stage renal disease 5. Cardiomegaly 6. Hyperkalemia 7. Hyponatremia 8. Severe anemia likely due to anemia of chronic kidney disease. PLAN 1. Transfuse one unit 2. Repeat echocardiogram now as a Helic[facility] was called shows sinus rhythm with some ST elevation in V1-V2. No other evidence of infarct or QRS T-wave changes. 3. Consult cardiology, Dr. Valentin. 4. Consult nephrology 5. Xanax p.r.n. 6. Eliquis 2.5 b.i.d. 7. Aspirin daily 8. Plavix daily 9. Hemodialysis Sunday, Sunday, Sunday 10. Echocardiogram 11. CT of the chest 12. Physical therapy 13. Telemetry and observation admission Eddi Benjamin MD RP/YENI /9:24 AM 9:37 AM
--- NOTE | 2016-05-10 10:23 | EKG ---
Date Performed: 05/09/2016 Time Performed: 15:01:53 PTAGE: 85 years EKG: Sinus rhythm WITH SINUS ARRHYTHMIA MARKED LEFT AXIS DEVIATION POSSIBLE LEFT VENTRICULAR HYPERTROPHY ABNORMAL ECG PREVIOUS TRACING : 04/07/2016 06.17 DOCTOR: Jurgen Jose Interpretating Date/Time 05/10/2016 10:23:14
--- NOTE | 2016-05-10 12:05 | EKG ---
Date Performed: 05/10/2016 Time Performed: 09:18:11 PTAGE: 85 years EKG: Sinus rhythm POSSIBLE LEFT ATRIAL ENLARGEMENT MARKED LEFT AXIS DEVIATION POSSIBLE LEFT VENTRICULAR HYPERTROPHY NO NSPECIFIC T-WAVE ABNORMALITY ABNORMAL ECG PREVIOUS TRACING : 05/09/2016 15.01 DOCTOR: Jurgen Jose Interpretating Date/Time 05/10/2016 12:05:23
[2016-05-10] MEDS: ALPRAZolam 0.25 MG TAB PO PRN ×2 (13:04→22:32)
--- NOTE | 2016-05-10 13:05 | MB ---
cc: YESI JACKSON M.D. DATE OF CONSULTATION 05/10/2016 REASON FOR CONSULTATION Wandy is a very pleasant [id number] with a history of coronary artery disease, peripheral vascular disease, who underwent PCI of the LAD on 04/06/2016. She had residual moderate disease in the LAD bifurcation with the diagonal and the right coronary artery. She did well postprocedurally. She is on Hospice. She does not follow up my office despite multiple requested do so. She presents with chest pain, found to have a hemoglobin of 6.8 status post transfusion and is pain-free now. Otherwise denies any fevers, chills, cough, GI- bleeding, paroxysmal nocturnal dyspnea, dizziness or obvious bleeding. She had a left heart catheterization on 04/06/2016 where she underwent PCI bare metal stent x2 to the [id number] LAD and FFR of the LAD as well. Right heart catheterization showed a PA pressure of 19/11-15, EF 45%. LV pressure 120/10-11, 60% mid stenosis of the right coronary artery, 50% stenosis of the mid-LAD at the bifurcation of a small diagonal vessel which has a 95% ostial stenosis, 60 and 70% sequential stenoses in the mid and distal LAD. FFR was 0.75 of the [id number] LAD. PAST MEDICAL HISTORY Also includes: 1. Anemia 2. Anxiety 3. Depression 4. CHF 5. GERD 6. Migraines 7. Sleep apnea 8. Nephrolithiasis 9. Hysterectomy 10. Bilateral hip replacement 11. Bilateral total knee arthroplasty 12. Tonsillectomy 13. Atrial fibrillation SOCIAL HISTORY Denies tobacco or alcohol use. ALLERGIES DILAUDID AND MORPHINE MEDICATIONS PRIOR TO ADMISSION: 1. Plavix 2. Lasix 3. Megace 4. Nephrovite 5. Sensipar 6. Xanax. 7. Renvela 8. Carvedilol 9. Colace 10. Eliquis 11. Aspirin 12. Travatan 13. Viibryd MEDICATIONS IN THE HOSPITAL 1. Aspirin 81 mg a day 2. Clopidogrel 75 a day 3. Megace 4. Coreg 12.5 q12h 5. Docusate 100 b.i.d. 6. Renvela 800 t.i.d. PHYSICAL EXAMINATION Blood pressure 193/99, pulse 96, temperature 98.4. GENERAL: She is alert and oriented x3 in no acute distress. NECK: Supple. No JVD. No bruit. CARDIOVASCULAR: S1, S2. No murmurs, rubs or gallops. LUNGS: Clear to auscultation bilaterally. ABDOMEN: Soft, nontender and nondistended with positive bowel sounds. EXTREMITIES: No edema. LABORATORY DATA White count 4.9, hemoglobin 6.8, hematocrit 19.1, platelet count 254. Sodium 134, potassium 5.5, chloride 100, BUN 32, creatinine 4.11, INR 1.0. Chest x-ray, possible superior mediastinal mass versus aneurysm. Superior mediastinum appears somewhat widened, COPD changes and cardiomegaly. EKG shows normal sinus rhythm at 63 beats per minute, T-wave inversion III and aVF, LVH. FINAL DIAGNOSIS 1. Unstable angina 2. Anemia 3. End-stage renal failure 4. Coronary disease 5. Cardiomyopathy 6. A. fib 7. Widened mediastinum on chest x-ray. 8. Hyperkalemia 9. Hyponatremia 10. Peripheral vascular disease DISCUSSION At this point in time, would withhold the Eliquis, aspirin and Plavix until dissection is ruled out. I agree with transfusion. She probably needs a hemoglobin over 10. Suspect she developed angina due to otherwise non-significant obstructive lesions in the LAD and right coronary artery as detailed in the past medical history. Suspect hemoglobin greater than 10 she should remain asymptomatic. If the patient is ruled out for aortic dissection, would resume aspirin and Plavix. She will need a workup for her anemia. If she is found to have any GI source of bleeding, we will probably holding the Eliquis at that point in time. Otherwise continue telemetry monitoring and dialysis as stated. MD EFRA Tejeda/YENI /12:24 PM /12:40 PM
--- NOTE | 2016-05-10 14:57 | EC ---
Study Study Date:05/10/2016 STUDY CONCLUSIONS SUMMARY - Procedure narrative: Transthoracic echocardiography. Image quality was adequate. Scanning was performed from the parasternal, apical, and subcostal acoustic windows. - Left ventricle: The cavity size was at the upper limits of normal. Wall thickness was normal. Systolic function was mildly to moderately reduced. The estimated ejection fraction was in the range of 40% to 45%. Diffuse hypokinesis. - Aortic valve: Probably trileaflet. Moderate leaflet sclerosis, mild leaflet calcification. Transvalvular velocity was increased. There was mild stenosis. Mean gradient: 15mm Hg (S). - Mitral valve: Mild to moderate regurgitation. - Left atrium: The atrium was mildly dilated. - Right atrium: The atrium was mildly dilated. - Tricuspid valve: Mild regurgitation. - Pulmonary arteries: PA peak pressure: 64mm Hg (S). - Pericardium, extracardiac: There was a left pleural effusion. If LV function is below 40, please consider prescribing an ACEI or ARB or document rationale for non-use. PROCEDURE DATA STUDY STATUS: Elective. Procedure: Transthoracic echocardiography. Image quality was adequate. Scanning was performed from the parasternal, apical, and subcostal acoustic windows. Study completion: The patient tolerated the procedure well. Transthoracic echocardiography. M-mode, complete 2D, complete spectral Doppler, and color Doppler. Patient status: Inpatient. CARDIAC ANATOMY LEFT VENTRICLE: The cavity size was at the upper limits of normal. Wall thickness was normal. Systolic function was mildly to moderately reduced. The estimated ejection fraction was in the range of 40% to 45%. Diffuse hypokinesis. AORTIC VALVE: Probably trileaflet. Moderate leaflet sclerosis, mild leaflet calcification. Doppler: Transvalvular velocity was increased. There was mild stenosis. No regurgitation. Mean gradient: 15mm Hg (S). Peak gradient: 31mm Hg (S). AORTA: Aortic root: The aortic root was normal in size. MITRAL VALVE: Structurally normal valve. Doppler: Transvalvular velocity was within the normal range. There was no evidence for stenosis. Mild to moderate regurgitation. Peak gradient: 2mm Hg (D). LEFT ATRIUM: The atrium was mildly dilated. RIGHT VENTRICLE: The cavity size was normal. Wall thickness was normal. PULMONIC VALVE: Doppler: Transvalvular velocity was within the normal range. There was no evidence for stenosis. No regurgitation. TRICUSPID VALVE: Structurally normal valve. Doppler: Transvalvular velocity was within the normal range. Mild regurgitation. PULMONARY ARTERY: The main pulmonary artery was normal-sized. Systolic pressure was within the normal range. RIGHT ATRIUM: The atrium was mildly dilated. PERICARDIUM: There was no pericardial effusion. SYSTEMIC VEINS: Inferior vena cava: The vessel was normal in size. Pleura: There was a left pleural effusion. BASIC MEASUREMENTS ADULT Normal Left ventricle LV internal dimension, ED, chordal level, *52.4 mm 43-52 PLAX LV internal dimension, ES, chordal level, *44.6 mm 23-38 PLAX Fractional shortening, chordal level, PLAX *15 % >29 LV posterior wall thickness, ED 8.26 mm IVS/LVPW ratio, ED 1.09 <1.3 Ventricular septum Septal thickness, ED 8.97 mm Left atrium Anterior-posterior dimension 39 mm Right ventricle RV internal dimension, ED, PLAX 24.3 mm 19-38 DOPPLER MEASUREMENTS ADULT Normal Main pulmonary artery Pressure, S *64 mm Hg =30 Aortic valve Peak velocity, S 278 cm/s Mean velocity, S 179 cm/s VTI, S 62.4 cm Mean gradient, S 15 mm Hg Peak gradient, S 31 mm Hg Mitral valve Peak E-wave velocity 77 cm/s Peak A-wave velocity 93.3 cm/s Peak gradient, D 2 mm Hg Peak E/A ratio 0.8 Maximal regurgitant velocity 499 cm/s Tricuspid valve Regurgitant peak velocity 384 cm/s Peak RV-RA gradient, S 59 mm Hg Maximal regurgitant velocity 384 cm/s Systemic veins Estimated CVP 5 mm Hg Right ventricle RV pressure, S *64 mm Hg <30 LEGEND: Mean values are shown as u=mean value. Asterisk (*) treadwell values outside specified normal range. Prepared and signed by Emeterio Patel [id number]
[2016-05-10] MEDS ORDERED: IOHEXOL 350 MG/ML 10 ML VIAL (for RAD DIAG) IV ONE (15:30)
--- NOTE | 2016-05-10 16:28 | RADRPT ---
EXAM DATE/TIME: 05/10/2016 15:13 [place] COMPARISON: CT BRAIN W/O CONTRAST, March 01, 2016, 13:40. INDICATIONS : Superior mediastinal mass vs. aneurysm. IV CONTRAST: 100 cc Omnipaque 350 (iohexol) IV RADIATION DOSE: 23.49 CTDIvol (mGy) MEDICAL HISTORY : Cardiovascular disease. Hypertension. Renal failure, chronic.Pt to receive dialysis after CT. SURGICAL HISTORY : Appendectomy. ENCOUNTER: Subsequent ACUITY: 2 days PAIN SCALE: 5/10 LOCATION: chest TECHNIQUE: Volumetric scanning was performed using a multi-row detector CT scanner. The data was post processed with a variety of visualization algorithms including full volume maximum intensity projection, multi -planar sliding thin slab reformation, curved planar reformation, and surface rendering techniques. Using automated exposure control and adjustment of the mA and/or kV according to patient size, radiat ion dose was kept as low as reasonably achievable to obtain optimal diagnostic quality images. FINDINGS: Thoracic aorta: The aortic root is normal in caliber. Maximum dimension is 2.9 cm. There is normal branching of the g reat vessels from the arch. The origins of the great vessels are widely patent. The arch is normal in caliber. The descending thoracic aorta is normal in caliber throughout its course. There is no evide nce of dissection. The heart is normal in size. No hilar or mediastinal adenopathy is seen. There is a small pleural eff usion on the left. There is some atelectatic change within the left lower lobe. There is a sizable hi atal hernia. The visualized bony structures are grossly intact. CTA imaging of the abdomen is provided as well. The celiac and SMA are widely patent. The patient has undergone prior bilateral renal stenting. They're widely patent. The infrarenal aorta is diseased bu t normal in caliber. The iliac vessels are widely patent. CONCLUSION: 1. There is no evidence of aortic dissection. The widening of the mediastinum seen on the chest x-ray appears to represent a combination of pleural fluid and atelectatic lung along the descending thorac ic aorta. 2. There are COPD changes within the pulmonary parenchyma. 3. There are small bilateral effusions. 4. The abdominal aorta and iliac vessels are intact. Yehuda Hanna MD on May 10, 2016 at 16:19 Board Certified Radiologist. This report was verified electronically.
[2016-05-10] MEDS: EPOETIN ALFA 10,000 UNITS/ML VIAL IV PRN (18:43)
[2016-05-11] VITALS (8 sets, daily range): BP systolic 140–182; BP diastolic 64–84; PULSE 63–84; RESP 16–18; TEMP 97–99; O2SAT 94–99
[2016-05-11] MEDS: DOCUSATE SODIUM 100 MG CAP PO SCH ×2 (08:33→21:15)
[2016-05-11] MEDS: CARVEDILOL 12.5 MG TAB PO SCH ×2 (08:33→21:15)
[2016-05-11] MEDS: SEVELAMER CARBONATE 800 MG TAB PO SCH ×3 (08:33→17:20)
[2016-05-11] MEDS: SODIUM CHLORIDE 0.9% FLUSH 10 ML FLUSH IV FLUSH SCH ×2 (08:34→21:15)
[2016-05-11] MEDS: MEGESTROL ACETATE SUSP 400 MG/10 ML CUP PO SCH (08:34)
--- NOTE | 2016-05-11 09:14 | HHI.NPPN ---
Subjective Interval History she feels much better today. Underwent dialysis yesterday with blood transfusion. Had CTA of the chest because of CXR finding of widening of superior mediastinum. There was no aortic dissection. Patient denies chest pain. Review of Systems General Constitutional: Fatigue Objective Data Data 05/10/16 05/11/16 19:00 07:00 Intake Total 360 ml Balance 360 ml Intake Oral 360 ml # Voids 1 Vital Signs Date Time Temp Pulse Resp B/P Pulse Ox O2 Delivery O2 Flow Rate FiO2 05/11/16 05:00 97.6 79 18 182/81 97 05/11/16 01:00 97.6 76 18 168/79 99 05/10/16 21:30 74 143/67 05/10/16 20:30 99.2 85 20 98 05/10/16 12:00 98.1 77 20 182/88 96 05/10/16 09:48 100 Nasal Cannula 2.00 -: 05/09/16 1500 05/09/16 1500 Microbiology 05/10/16 Stool Occult Blood (KELLY) - Final, Complete HEMOCCULT NEGATIVE Physical Exam General Appearance: Well Developed, Malnourished Eyes Eye Exam: Pupils Equal Throat Throat Exam: Oral Mucosa [place] & Moist Neck Neck Exam: Neck Supple Pulmonary Resp Exam: Clear Bilaterally, Breath Sounds Equal, No Distress Cardiology CV Exam: Regular, Good Perfusion, Dyspnea on Exertion Gastrointestinal/Abdomen GI Exam: Soft, Non-Tender, Bowel Sounds Present Musculoskeletal MS Exam: Joints Intact Integumentary Skin Exam: Clear, Intact Extremeties Extremities Exam: No Edema Neurologic Neuro Exam: Alert, Awake, Oriented, Speech Clear, Moving All Extremities Assessment/Plan Problem List: (1) ESRD (end stage renal disease) Plan: We will continue dialysis MWF. Volume status acceptable today. (2) Cardiomyopathy Plan: Monitor. Fluid removal with dialysis. (3) Anemia Plan: Rule out bleeding, especially since she was on anticoagulation. Blood transfusion yesterday. Epogen. Obtain iron studies. Repeat CBC. (4) Atrial fibrillation Plan: Rate control measures. She has been placed on Eliquis, held by Dr. Valentin. Plan If there is no evidence of bleeding, and if her Hemoglobin is stable, she can be discharged from renal standpoint. Also consider the possibility of retroperitoneal bleed. Roland Miramontes MD May 11, 2016 09:14
[2016-05-11] MEDS ORDERED: APIXABAN 2.5 MG TABLET PO ONE (10:00)
[2016-05-11 10:35] LABS: AUTOMATED NEUTROPHIL # 3.9 TH/MM3 (1.8-7.7); BASOPHIL # 0.1 TH/MM3 (0-0.2); BASOPHIL % 1.4 % (0.0-2.0); EOSINOPHIL # 0.2 TH/MM3 (0-0.4); EOSINOPHIL % 4.1 % (0.0-4.0); HEMATOCRIT 32.8 % (35.0-46.0); HEMO FLAGS DIFF FINAL; LYMPH % 14.9 % (9.0-44.0); LYMPHOCYTE # 0.8 TH/MM3 (1.0-4.8); MEAN CELL VOLUME 93.1 FL (80.0-100.0); MEAN CORPUSCULAR HEMOGLOBIN 31.7 PG (27.0-34.0); MONO % 9.1 % (0.0-8.0); NEUT % 70.5 % (16.0-70.0); PLATELET COUNT 255 TH/MM3 (150-450); RED BLOOD COUNT 3.52 MIL/MM3 (4.00-5.30); RED CELL DISTRIBUTION WIDTH 17.7 % (11.6-17.2); WHITE BLOOD COUNT 5.5 TH/MM3 (4.0-11.0)
[2016-05-11 11:17] LABS: TRANSFERRIN IRON PROFILE 154 MG/DL (200-360)
[2016-05-11 11:31] LABS: FERRITIN 935 NG/ML (8-252)
--- NOTE | 2016-05-11 12:34 | PD.CARD.PN ---
Subjective Subjective Remarks still having intermittent chest pain, "dull aching", currently assymptomatic at bedside Objective Vital Signs / I&O Vital Signs Date Time Temp Pulse Resp B/P Pulse Ox O2 Delivery O2 Flow Rate FiO2 05/11/16 09:39 94 21 05/11/16 08:00 97.0 84 16 180/84 97 05/11/16 05:00 97.6 79 18 182/81 97 05/11/16 01:00 97.6 76 18 168/79 99 05/10/16 21:30 74 143/67 05/10/16 20:30 99.2 85 20 98 I/O 05/10/16 05/10/16 05/10/16 05/11/16 05/11/16 05/11/16 07:00 15:00 23:00 07:00 15:00 23:00 Intake Total 375 ml 240 ml 120 ml Balance 375 ml 240 ml 120 ml Intake Oral 240 ml 120 ml IV Total 30 ml Packed Cells 345 ml # Voids 1 1 Physical Exam GENERAL: SKIN: Warm and dry. HEAD: Normocephalic. EYES: No scleral icterus. No injection or drainage. NECK: Supple, trachea midline. No JVD or lymphadenopathy. CARDIOVASCULAR: Regular rate and rhythm without murmurs, gallops, or rubs. RESPIRATORY: Breath sounds equal bilaterally. No accessory muscle use. GASTROINTESTINAL: Abdomen soft, non-tender, nondistended. MUSCULOSKELETAL: No cyanosis, or edema. BACK: Nontender without obvious deformity. No CVA tenderness. Laboratory Laboratory Tests Test 05/11/16 10:13 White Blood Count 5.5 TH/MM3 Red Blood Count 3.52 MIL/MM3 Hemoglobin 11.2 GM/DL Hematocrit 32.8 % Mean Corpuscular Volume 93.1 FL Mean Corpuscular Hemoglobin 31.7 PG Mean Corpuscular Hemoglobin 34.0 % Concent Red Cell Distribution Width 17.7 % Platelet Count 255 TH/MM3 Mean Platelet Volume 7.6 FL Neutrophils (%) (Auto) 70.5 % Lymphocytes (%) (Auto) 14.9 % Monocytes (%) (Auto) 9.1 % Eosinophils (%) (Auto) 4.1 % Basophils (%) (Auto) 1.4 % Neutrophils # (Auto) 3.9 TH/MM3 Lymphocytes # (Auto) 0.8 TH/MM3 Monocytes # (Auto) 0.5 TH/MM3 Eosinophils # (Auto) 0.2 TH/MM3 Basophils # (Auto) 0.1 TH/MM3 CBC Comment DIFF FINAL Differential Comment Iron Level 24 MCG/DL Total Iron Binding Capacity 216 MCG/DL Percent Iron Saturation 11.1 % Ferritin 935 NG/ML Assessment and Plan Problem List: (1) Atrial fibrillation, new onset (2) Aortic stenosis (3) Hypertension (4) Hyperlipidemia (5) Depression (6) CAD (coronary artery disease) (7) Chest pain (8) Cardiomyopathy Assessment and Plan 1.) [place] - hgb improved, still htnsive, start norvasc 10, if hgb remains stable and patient still has chest pain with hgb>10 and controlled bp, consider cath, pci lad and/or rca 2.) PAF - assymptomatic, restart eliquis, f/u hgb in am Problem Qualifiers (1) CAD (coronary artery disease): Qualified Code: I25.10 - Coronary artery disease due to calcified coronary lesion (2) Chest pain: Qualified Code: R07.2 - Precordial pain Zohaib Valentin MD May 11, 2016 12:34
[2016-05-11 15:09] LABS: HEMATOCRIT 29.9 % (35.0-46.0); MEAN CELL VOLUME 93.5 FL (80.0-100.0); MEAN CORPUSCULAR HEMOGLOBIN 32.4 PG (27.0-34.0); MEAN CORPUSCULAR HGB CONC 34.7 % (32.0-36.0); PLATELET COUNT 256 TH/MM3 (150-450); RED CELL DISTRIBUTION WIDTH 17.6 % (11.6-17.2); REVIEW FLAG FINAL; WHITE BLOOD COUNT 5.5 TH/MM3 (4.0-11.0)
--- NOTE | 2016-05-11 15:12 | HHI.FPPN ---
Subjective Remarks C/O MILD CP EARLIER OK NOW LOOKS MUCH IMPROVED D/W RN Objective Vitals Vital Signs Date Time Temp Pulse Resp B/P Pulse Ox O2 Delivery O2 Flow Rate FiO2 05/11/16 12:00 99.0 68 16 169/79 99 05/11/16 09:39 94 21 05/11/16 08:00 97.0 84 16 180/84 97 05/11/16 05:00 97.6 79 18 182/81 97 05/11/16 01:00 97.6 76 18 168/79 99 05/10/16 21:30 74 143/67 05/10/16 20:30 99.2 85 20 98 I/O 05/10/16 05/10/16 05/10/16 05/11/16 05/11/16 05/11/16 07:00 15:00 23:00 07:00 15:00 23:00 Intake Total 375 ml 240 ml 120 ml Balance 375 ml 240 ml 120 ml Intake Oral 240 ml 120 ml IV Total 30 ml Packed Cells 345 ml # Voids 1 1 Result Diagram: 05/11/16 1013 05/09/16 1500 Objective Remarks GENERAL: SKIN: Warm and dry. HEAD: Atraumatic. Normocephalic. EYES: Pupils equal and round. No scleral icterus. No injection or drainage. ENT: No nasal bleeding or discharge. Mucous membranes pink and moist. NECK: Trachea midline. No JVD. CARDIOVASCULAR: Regular rate and rhythm. RESPIRATORY: No accessory muscle use. Clear to auscultation. Breath sounds equal bilaterally. GASTROINTESTINAL: Abdomen soft, non-tender, nondistended. Hepatic and splenic margins not palpable. MUSCULOSKELETAL: Extremities without clubbing, cyanosis, or edema. No obvious deformities. NEUROLOGICAL: Awake and alert. No obvious cranial nerve deficits. Motor grossly within normal limits. 1 out of 5 muscle strength in the arms and legs. Normal speech. PSYCHIATRIC: Appropriate mood and affect; insight and judgment normal. Medications and IVs Current Medications Medications (Trade) Dose Ordered Sig/Thierry Route Start Time Stop Time Status Last Admin (Xanax) 0.25 mg Q8H PRN PO 05/09/16 17:15 05/10/16 22:32 (Coreg) 12.5 mg Q12HR PO 05/09/16 21:00 05/11/16 08:33 (Colace) 100 mg BID PO 05/09/16 21:00 05/11/16 08:33 (Renvela) 800 mg TID PO 05/09/16 18:00 05/11/16 12:30 (Xalatan 0.005% Opth Soln) 1 drop HS PRN EACH EYE 05/09/16 17:30 (NS Flush) 2 ml UNSCH PRN IV FLUSH 05/09/16 17:30 05/10/16 00:19 (NS Flush) 2 ml BID IV FLUSH 05/09/16 21:00 05/11/16 08:34 (Tylenol) 650 mg Q4H PRN PO 05/09/16 17:30 05/10/16 19:28 (Zofran Inj) 4 mg Q6H PRN IVP 05/09/16 17:30 (Dulcolax Supp) 10 mg DAILY PRN RECTAL 05/09/16 17:30 (Ambien) 5 mg HS PRN PO 05/09/16 17:30 Naloxone HCl 0.4 mg 0.4 mg UNSCH PRN IV 05/09/16 17:30 (NS 1000 ml Inj) 1,000 ml @ 0 mls/hr Q0M PRN IV 05/10/16 07:43 Heparin Sodium (Porcine) 8000 units 8,000 units UNSCH PRN IVF 05/10/16 07:45 Sodium Chloride 1,000 ml @ 200 mls/hr Q5H PRN IV 05/10/16 07:43 (NS 1000 ml Inj) 1,000 ml @ 0 mls/hr Q0M PRN IV 05/10/16 07:43 (Mannitol Inj) 12.5 gm UNSCH PRN IV 05/10/16 07:45 (Albumin 25% Inj) 25 gm UNSCH PRN IV 05/10/16 07:45 (NS Flush) 5 ml UNSCH PRN IV FLUSH 05/10/16 07:45 (Heparin Inj) UNSCH PRN .XX 05/10/16 07:45 (Gentamicin (Dialysis) Inj) 20 mg UNSCH PRN IV 05/10/16 07:45 (Zofran Inj) 4 mg UNSCH PRN IV 05/10/16 07:45 (Tylenol) 650 mg UNSCH PRN PO 05/10/16 07:45 05/10/16 12:53 (Benadryl) 25 mg UNSCH PRN PO 05/10/16 07:45 (Nitrostat Sl) 0.4 mg UNSCH PRN SL 05/10/16 07:45 05/10/16 08:42 (Catapres) 0.1 mg UNSCH PRN PO 05/10/16 07:45 (Epogen Inj) 10,000 units UNSCH PRN IV 05/10/16 07:45 05/10/16 18:43 (Gelfoam 12 Mm/7 Mm Top) 1 foam UNSCH PRN TOP 05/10/16 07:45 (Megace Liq) 800 mg DAILY PO 05/10/16 09:00 05/11/16 08:34 (Eliquis) 2.5 mg BID PO 05/11/16 21:00 (Norvasc) 10 mg DAILY PO 05/12/16 09:00 A/P Assessment and Plan [place] PAF Widened mediastinum on chest x-ray, NEG CTA COPD End-stage renal disease Cardiomegaly Hyperkalemia Hyponatremia Severe anemia likely due to anemia of chronic kidney disease. PLAN- [facility] TOMORROW S/P Transfuse one unit Consult cardiology, Dr. Valentin. Consult nephrology Xanax p.r.n. Eliquis 2.5 b.i.d. Aspirin daily Plavix daily Hemodialysis Sunday, Sunday, Sunday Physical therapy Telemetry Eddi Marx MD May 11, 2016 15:12 Eddi Marx MD May 11, 2016 15:12
[2016-05-11] MEDS: ACETAMINOPHEN 325 MG TAB PO PRN (18:55)
[2016-05-11] MEDS: APIXABAN 2.5 MG TABLET PO SCH (21:15)
[2016-05-12] VITALS (8 sets, daily range): BP systolic 140–171; BP diastolic 69–79; PULSE 62–77; RESP 16–19; TEMP 97.6–98.7; O2SAT 95–99
[2016-05-12] MEDS: ALPRAZolam 0.25 MG TAB PO PRN ×2 (03:00→20:26)
[2016-05-12 07:27] LABS: AUTOMATED NEUTROPHIL # 3.5 TH/MM3 (1.8-7.7); BASOPHIL # 0.1 TH/MM3 (0-0.2); BASOPHIL % 1.3 % (0.0-2.0); EOSINOPHIL # 0.4 TH/MM3 (0-0.4); EOSINOPHIL % 5.8 % (0.0-4.0); HEMATOCRIT 27.9 % (35.0-46.0); HEMO FLAGS DIFF FINAL; LYMPH % 24.7 % (9.0-44.0); LYMPHOCYTE # 1.5 TH/MM3 (1.0-4.8); MEAN CELL VOLUME 92.4 FL (80.0-100.0); MEAN CORPUSCULAR HEMOGLOBIN 32.3 PG (27.0-34.0); MONO % 11.9 % (0.0-8.0); NEUT % 56.3 % (16.0-70.0); PLATELET COUNT 249 TH/MM3 (150-450); RED BLOOD COUNT 3.02 MIL/MM3 (4.00-5.30); WHITE BLOOD COUNT 6.2 TH/MM3 (4.0-11.0)
[2016-05-12 07:57] LABS: BICARBONATE 28.9 MEQ/L (21.0-32.0); POTASSIUM 4.1 MEQ/L (3.5-5.1)
--- NOTE | 2016-05-12 08:56 | HHI.NPPN ---
Subjective General Problems: Anemia Renal Failure: Chronic, End Stage Renal Disease Interval History Seen during dialysis. She denies chest pain, is in good spirits today. ( Lelo Chong) Review of Systems General Constitutional: Fatigue (Lelo Chong) Cardiovascular Cardiac Remarks no recent chest pain (Lelo Chong) Objective Data Data 05/11/16 05/12/16 19:00 07:00 Intake Total 720 ml 480 ml Balance 720 ml 480 ml Intake Oral 720 ml 480 ml # Voids 2 1 # Bowel Movements 1 1 Vital Signs Date Time Temp Pulse Resp B/P Pulse Ox O2 Delivery O2 Flow Rate FiO2 05/12/16 04:00 97.6 77 19 149/78 97 05/12/16 00:00 98.7 68 17 148/72 97 05/11/16 20:00 98.3 63 17 143/69 97 05/11/16 17:56 98 21 05/11/16 16:00 98.6 73 16 140/64 98 05/11/16 12:00 99.0 68 16 169/79 99 05/11/16 09:39 94 21 (Lelo Chong) -: 05/12/16 0640 05/12/16 0640 Imaging Last 72 hours Impressions Aorta CTA 05/10/16 0000 Signed Impressions: Service Date/Time: Tuesday, May 10, 2016 15:13 - CONCLUSION: 1. There is no evidence of aortic dissection. The widening of the mediastinum seen on the chest x-ray appears to represent a combination of pleural fluid and atelectatic lung along the descending thoracic aorta. 2. There are COPD changes within the pulmonary parenchyma. 3. There are small bilateral effusions. 4. The abdominal aorta and iliac vessels are intact. Yehuda Hanna MD Chest X-Ray 05/09/16 1456 Signed Impressions: Service Date/Time: Monday, May 09, 2016 14:58 - CONCLUSION: 1. Possible superior mediastinal mass versus aneurysm. The superior mediastinum appears somewhat widened. 2. COPD changes. 3. Cardiomegaly. Yehuda Hanna MD (Lelo Chong) Physical Exam General Appearance: Well Developed, Well Nourished, No Acute Distress, Comfortable, Malnourished (Lelo Chong) Eyes Eye Exam: Pupils Equal (Lelo Chong) Throat Throat Exam: Oral Mucosa [place] & Moist (Lelo Chong) Neck Neck Exam: Neck Supple (Lelo Chong) Pulmonary Resp Exam: Clear Bilaterally, Breath Sounds Equal, No Distress (Lelo Chong) Cardiology CV Exam: Regular, Good Perfusion, Dyspnea on Exertion (Lelo Chong) Gastrointestinal/Abdomen GI Exam: Soft, Non-Tender, Bowel Sounds Present (Lelo Chong) Musculoskeletal MS Exam: Joints Intact, Normal Tone (Lelo Chong) Integumentary Skin Exam: Clear, Warm, Dry, Intact (Lelo Chong) Extremeties Extremities Exam: No Edema, Pedal Pulses Palpable Extremeties Remarks right AVF, + thrill/bruit (Lelo Chong) Neurologic Neuro Exam: Alert, Awake, Oriented, Speech Clear, Moving All Extremities ( Lelo Chong) Assessment/Plan Assessment Summary: Anemia of CKD, Hypertension, End Stage Renal Disease Problem List: (1) ESRD (end stage renal disease) Plan: seen during dialysis today on a 3K, 350 BFR, goal of 3L We will continue dialysis MWF. Volume status acceptable today. no acute renal concerns avoid IVF, gadolinium (2) Cardiomyopathy Plan: Monitor. adjust UF with dialysis cardiology following (3) Anemia Plan: on epogen with HD Hb stable (4) Atrial fibrillation Plan: Rate controlled on eliquis Plan stable for discharge when cleared by cardiology (Lelo Chong) Plan patient was seen and examined. Agree with above assessment and plan. She can be discharged from renal standpoint. (Roland Miramontes MD) Lelo Chong May 12, 2016 08:56 Roland Miramontes MD May 12, 2016 13:24
[2016-05-12] MEDS: SEVELAMER CARBONATE 800 MG TAB PO SCH ×3 (09:00→17:45)
[2016-05-12] MEDS: CARVEDILOL 12.5 MG TAB PO SCH ×2 (09:00→20:26)
--- NOTE | 2016-05-12 11:49 | HHI.FPPN ---
Subjective Remarks lethargic in HD c/o general pain d/w RN d/w dr Valentin Objective Vitals Vital Signs Date Time Temp Pulse Resp B/P Pulse Ox O2 Delivery O2 Flow Rate FiO2 05/12/16 10:09 95 21 05/12/16 08:00 98.6 69 18 153/69 97 05/12/16 04:00 97.6 77 19 149/78 97 05/12/16 00:00 98.7 68 17 148/72 97 05/11/16 20:00 98.3 63 17 143/69 97 05/11/16 17:56 98 21 05/11/16 16:00 98.6 73 16 140/64 98 05/11/16 12:00 99.0 68 16 169/79 99 I/O 05/11/16 05/11/16 05/11/16 05/12/16 05/12/16 05/12/16 07:00 15:00 23:00 07:00 15:00 23:00 Intake Total 120 ml 720 ml 240 ml 240 ml Balance 120 ml 720 ml 240 ml 240 ml Intake Oral 120 ml 720 ml 240 ml 240 ml # Voids 2 1 0 # Bowel Movements 1 1 0 Result Diagram: 05/12/16 0640 05/12/16 0640 Objective Remarks GENERAL: SKIN: Warm and dry. HEAD: Atraumatic. Normocephalic. EYES: Pupils equal and round. No scleral icterus. No injection or drainage. ENT: No nasal bleeding or discharge. Mucous membranes pink and moist. NECK: Trachea midline. No JVD. CARDIOVASCULAR: Regular rate and rhythm. RESPIRATORY: No accessory muscle use. Clear to auscultation. Breath sounds equal bilaterally. GASTROINTESTINAL: Abdomen soft, non-tender, nondistended. Hepatic and splenic margins not palpable. MUSCULOSKELETAL: Extremities without clubbing, cyanosis, or edema. No obvious deformities. NEUROLOGICAL: Awake and alert. No obvious cranial nerve deficits. Motor grossly within normal limits. 1 out of 5 muscle strength in the arms and legs. Normal speech. PSYCHIATRIC: Appropriate mood and affect; insight and judgment normal. Medications and IVs Current Medications Medications (Trade) Dose Ordered Sig/Thierry Route Start Time Stop Time Status Last Admin (Xanax) 0.25 mg Q8H PRN PO 05/09/16 17:15 05/12/16 20:26 (Coreg) 12.5 mg Q12HR PO 05/09/16 21:00 05/12/16 20:26 (Colace) 100 mg BID PO 05/09/16 21:00 05/12/16 20:26 (Renvela) 800 mg TID PO 05/09/16 18:00 05/12/16 17:45 (Xalatan 0.005% Opth Soln) 1 drop HS PRN EACH EYE 05/09/16 17:30 (NS Flush) 2 ml UNSCH PRN IV FLUSH 05/09/16 17:30 05/10/16 00:19 (NS Flush) 2 ml BID IV FLUSH 05/09/16 21:00 05/12/16 20:27 (Tylenol) 650 mg Q4H PRN PO 05/09/16 17:30 05/12/16 14:02 (Zofran Inj) 4 mg Q6H PRN IVP 05/09/16 17:30 (Dulcolax Supp) 10 mg DAILY PRN RECTAL 05/09/16 17:30 (Ambien) 5 mg HS PRN PO 05/09/16 17:30 Naloxone HCl 0.4 mg 0.4 mg UNSCH PRN IV 05/09/16 17:30 (NS 1000 ml Inj) 1,000 ml @ 0 mls/hr Q0M PRN IV 05/10/16 07:43 Heparin Sodium (Porcine) 8000 units 8,000 units UNSCH PRN IVF 05/10/16 07:45 Sodium Chloride 1,000 ml @ 200 mls/hr Q5H PRN IV 05/10/16 07:43 (NS 1000 ml Inj) 1,000 ml @ 0 mls/hr Q0M PRN IV 05/10/16 07:43 (Mannitol Inj) 12.5 gm UNSCH PRN IV 05/10/16 07:45 (Albumin 25% Inj) 25 gm UNSCH PRN IV 05/10/16 07:45 (NS Flush) 5 ml UNSCH PRN IV FLUSH 05/10/16 07:45 (Heparin Inj) UNSCH PRN .XX 05/10/16 07:45 (Gentamicin (Dialysis) Inj) 20 mg UNSCH PRN IV 05/10/16 07:45 (Zofran Inj) 4 mg UNSCH PRN IV 05/10/16 07:45 (Tylenol) 650 mg UNSCH PRN PO 05/10/16 07:45 05/11/16 18:55 (Benadryl) 25 mg UNSCH PRN PO 05/10/16 07:45 (Nitrostat Sl) 0.4 mg UNSCH PRN SL 05/10/16 07:45 05/10/16 08:42 (Catapres) 0.1 mg UNSCH PRN PO 05/10/16 07:45 (Epogen Inj) 10,000 units UNSCH PRN IV 05/10/16 07:45 05/12/16 11:51 (Gelfoam 12 Mm/7 Mm Top) 1 foam UNSCH PRN TOP 05/10/16 07:45 05/12/16 11:50 (Megace Liq) 800 mg DAILY PO 05/10/16 09:00 05/12/16 13:06 (Eliquis) 2.5 mg BID PO 05/11/16 21:00 05/12/16 20:26 (Norvasc) 10 mg DAILY PO 05/12/16 09:00 A/P Assessment and Plan [place] PAF Widened mediastinum on chest x-ray, NEG CTA COPD End-stage renal disease Cardiomegaly Hyperkalemia Hyponatremia Severe anemia likely due to anemia of chronic kidney disease. PLAN- D/W Dr Valentin, he may [facility] if stable S/P Transfuse one unit Consult nephrology Xanax p.r.n. Eliquis 2.5 b.i.d. Aspirin daily Plavix daily Hemodialysis Sunday, Sunday, Sunday Physical therapy Telemetry Dispo: back to [facility] with hospice. Eddi Marx MD May 12, 2016 11:49
[2016-05-12] MEDS: EPOETIN ALFA 10,000 UNITS/ML VIAL IV PRN (11:51)
--- NOTE | 2016-05-12 12:06 | PD.CARD.PN ---
Subjective Subjective Remarks denies chest pain Objective Vital Signs / I&O Vital Signs Date Time Temp Pulse Resp B/P Pulse Ox O2 Delivery O2 Flow Rate FiO2 05/12/16 10:09 95 21 05/12/16 08:00 98.6 69 18 153/69 97 05/12/16 04:00 97.6 77 19 149/78 97 05/12/16 00:00 98.7 68 17 148/72 97 05/11/16 20:00 98.3 63 17 143/69 97 05/11/16 17:56 98 21 05/11/16 16:00 98.6 73 16 140/64 98 I/O 05/11/16 05/11/16 05/11/16 05/12/16 05/12/16 05/12/16 07:00 15:00 23:00 07:00 15:00 23:00 Intake Total 120 ml 720 ml 240 ml 240 ml Balance 120 ml 720 ml 240 ml 240 ml Intake Oral 120 ml 720 ml 240 ml 240 ml # Voids 2 1 0 # Bowel Movements 1 1 0 Physical Exam GENERAL: SKIN: Warm and dry. HEAD: Normocephalic. EYES: No scleral icterus. No injection or drainage. NECK: Supple, trachea midline. No JVD or lymphadenopathy. CARDIOVASCULAR: Regular rate and rhythm without murmurs, gallops, or rubs. RESPIRATORY: Breath sounds equal bilaterally. No accessory muscle use. GASTROINTESTINAL: Abdomen soft, non-tender, nondistended. MUSCULOSKELETAL: No cyanosis, or edema. BACK: Nontender without obvious deformity. No CVA tenderness. Laboratory Laboratory Tests Test 05/11/16 05/12/16 15:01 06:40 White Blood Count 5.5 TH/MM3 6.2 TH/MM3 Red Blood Count 3.20 MIL/MM3 3.02 MIL/MM3 Hemoglobin 10.4 GM/DL 9.8 GM/DL Hematocrit 29.9 % 27.9 % Mean Corpuscular Volume 93.5 FL 92.4 FL Mean Corpuscular Hemoglobin 32.4 PG 32.3 PG Mean Corpuscular Hemoglobin 34.7 % 35.0 % Concent Red Cell Distribution Width 17.6 % 17.0 % Platelet Count 256 TH/MM3 249 TH/MM3 Mean Platelet Volume 7.7 FL 7.6 FL Neutrophils (%) (Auto) 56.3 % Lymphocytes (%) (Auto) 24.7 % Monocytes (%) (Auto) 11.9 % Eosinophils (%) (Auto) 5.8 % Basophils (%) (Auto) 1.3 % Neutrophils # (Auto) 3.5 TH/MM3 Lymphocytes # (Auto) 1.5 TH/MM3 Monocytes # (Auto) 0.7 TH/MM3 Eosinophils # (Auto) 0.4 TH/MM3 Basophils # (Auto) 0.1 TH/MM3 CBC Comment DIFF FINAL Differential Comment Sodium Level 133 MEQ/L Potassium Level 4.1 MEQ/L Chloride Level 95 MEQ/L Carbon Dioxide Level 28.9 MEQ/L Anion Gap 9 MEQ/L Blood Urea Nitrogen 37 MG/DL Creatinine 4.57 MG/DL Estimat Glomerular Filtration 11 ML/MIN Rate Random Glucose 84 MG/DL Calcium Level 9.0 MG/DL Phosphorus Level 2.5 MG/DL Albumin 2.6 GM/DL Assessment and Plan Problem List: (1) Atrial fibrillation, new onset (2) Aortic stenosis (3) Hypertension (4) Hyperlipidemia (5) Depression (6) CAD (coronary artery disease) (7) Chest pain (8) Cardiomyopathy Assessment and Plan 1.) [place] - hgb improved, chest pain and htn improved on norvasc 10, if hgb remains stable and patient still has chest pain with hgb>10 and controlled bp, consider cath, pci lad and/or rca 2.) PAF - assymptomatic, hgb decreasing on eliquis, f/u hgb in am, may need to dc eliquis if hgb continues to decline, d/w Dr Marx Problem Qualifiers (1) CAD (coronary artery disease): Qualified Code: I25.10 - Coronary artery disease due to calcified coronary lesion (2) Chest pain: Qualified Code: R07.2 - Precordial pain Zohaib Valentin MD May 12, 2016 12:06
[2016-05-12] MEDS: SODIUM CHLORIDE 0.9% FLUSH 10 ML FLUSH IV FLUSH SCH ×2 (13:05→20:27)
[2016-05-12] MEDS: DOCUSATE SODIUM 100 MG CAP PO SCH ×2 (13:05→20:26)
[2016-05-12] MEDS: APIXABAN 2.5 MG TABLET PO SCH ×2 (13:06→20:26)
[2016-05-12] MEDS: MEGESTROL ACETATE SUSP 400 MG/10 ML CUP PO SCH (13:06)
[2016-05-12] MEDS: ACETAMINOPHEN 325 MG TAB PO PRN (14:02)
[2016-05-13] VITALS (14 sets, daily range): BP systolic 100–159; BP diastolic 48–76; PULSE 59–77; RESP 16–20; TEMP 96.8–98.4; O2SAT 96–99
[2016-05-13] MEDS: ACETAMINOPHEN 325 MG TAB PO PRN ×2 (02:11→10:28)
[2016-05-13 07:52] LABS: HEMATOCRIT 29.3 % (35.0-46.0); MEAN CELL VOLUME 92.4 FL (80.0-100.0); MEAN CORPUSCULAR HEMOGLOBIN 31.7 PG (27.0-34.0); MEAN CORPUSCULAR HGB CONC 34.4 % (32.0-36.0); PLATELET COUNT 247 TH/MM3 (150-450); RED BLOOD COUNT 3.18 MIL/MM3 (4.00-5.30); REVIEW FLAG FINAL; WHITE BLOOD COUNT 5.5 TH/MM3 (4.0-11.0)
[2016-05-13] MEDS: SEVELAMER CARBONATE 800 MG TAB PO SCH ×2 (09:20→18:42)
[2016-05-13] MEDS: CARVEDILOL 12.5 MG TAB PO SCH ×2 (09:20→20:51)
[2016-05-13] MEDS: SODIUM CHLORIDE 0.9% FLUSH 10 ML FLUSH IV FLUSH SCH ×2 (09:21→20:51)
[2016-05-13] MEDS: DOCUSATE SODIUM 100 MG CAP PO SCH ×2 (09:21→20:51)
[2016-05-13] MEDS: MEGESTROL ACETATE SUSP 400 MG/10 ML CUP PO SCH (09:22)
[2016-05-13] MEDS: APIXABAN 2.5 MG TABLET PO SCH ×2 (09:26→20:51)
[2016-05-13] MEDS: NITROGLYCERIN 0.4 MG SL 25 TABS/BTL SL PRN ×3 (09:48→10:07)
[2016-05-13] MEDS: ALPRAZolam 0.25 MG TAB PO PRN (10:28)
--- NOTE | 2016-05-13 12:31 | HHI.NPPN ---
Subjective General Problems: Anemia Renal Failure: Chronic, End Stage Renal Disease Additional Remarks no acute complaints, reports some improvement in chest pains today Review of Systems General Constitutional: Fatigue Cardiovascular Cardiac Remarks no recent chest pain Objective Data Data 05/12/16 05/13/16 19:00 07:00 Intake Total 480 ml 720 ml Output Total 3000 ml Balance -2520 ml 720 ml Intake Oral 720 ml IV Total 480 ml Output Hemodialysis 3000 ml # Voids 3 Vital Signs Date Time Temp Pulse Resp B/P Pulse Ox O2 Delivery O2 Flow Rate FiO2 05/13/16 10:15 103/51 05/13/16 10:03 18 05/13/16 10:00 74 18 100/53 05/13/16 09:49 97.7 77 18 134/59 98 05/13/16 08:00 96.8 68 18 130/57 99 05/13/16 04:00 97.6 77 17 149/76 98 05/13/16 00:00 97.7 75 16 159/74 99 05/12/16 20:00 97.9 72 18 171/79 98 05/12/16 18:07 96 21 05/12/16 17:24 96 05/12/16 15:45 18 05/12/16 13:00 98.7 62 16 140/69 99 -: 05/13/16 0724 05/12/16 0640 Physical Exam General Appearance: Well Developed, Well Nourished, No Acute Distress, Comfortable, Malnourished Eyes Eye Exam: Pupils Equal Throat Throat Exam: Oral Mucosa [place] & Moist Neck Neck Exam: Neck Supple Pulmonary Resp Exam: Clear Bilaterally, Breath Sounds Equal, No Distress Cardiology CV Exam: Regular, Good Perfusion, Dyspnea on Exertion Gastrointestinal/Abdomen GI Exam: Soft, Non-Tender, Bowel Sounds Present Musculoskeletal MS Exam: Joints Intact, Normal Tone Integumentary Skin Exam: Clear, Warm, Dry, Intact Extremeties Extremities Exam: No Edema, Pedal Pulses Palpable Neurologic Neuro Exam: Alert, Awake, Oriented, Speech Clear, Moving All Extremities Assessment/Plan Assessment Summary: Anemia of CKD, Hypertension, End Stage Renal Disease Problem List: (1) ESRD (end stage renal disease) Plan: Tolerated HD yesterday. We will continue dialysis MWF. Volume status, electrolytes stable no acute renal concerns avoid IVF, gadolinium (2) Cardiomyopathy Plan: Monitor. adjust UF with dialysis cardiology following - plan for possible cath (3) Anemia Plan: on epogen with HD Hb stable (4) Atrial fibrillation Plan: Rate controlled on Yehuda Real MD May 13, 2016 12:31
--- NOTE | 2016-05-13 12:37 | PD.CARD.PN ---
Subjective Subjective Remarks c/o moderate chest pain Objective Vital Signs / I&O Vital Signs Date Time Temp Pulse Resp B/P Pulse Ox O2 Delivery O2 Flow Rate FiO2 05/13/16 10:15 103/51 05/13/16 10:03 18 05/13/16 10:00 74 18 100/53 05/13/16 09:49 97.7 77 18 134/59 98 05/13/16 08:00 96.8 68 18 130/57 99 05/13/16 04:00 97.6 77 17 149/76 98 05/13/16 00:00 97.7 75 16 159/74 99 05/12/16 20:00 97.9 72 18 171/79 98 05/12/16 18:07 96 21 05/12/16 17:24 96 05/12/16 15:45 18 05/12/16 13:00 98.7 62 16 140/69 99 I/O 05/12/16 05/12/16 05/12/16 05/13/16 05/13/16 05/13/16 07:00 15:00 23:00 07:00 15:00 23:00 Intake Total 240 ml 480 ml 480 ml 240 ml Output Total 3000 ml Balance 240 ml -2520 ml 480 ml 240 ml Intake Oral 240 ml 480 ml 240 ml IV Total 480 ml Output Hemodialysis 3000 ml # Voids 0 2 1 # Bowel Movements 0 Physical Exam GENERAL: SKIN: Warm and dry. HEAD: Normocephalic. EYES: No scleral icterus. No injection or drainage. NECK: Supple, trachea midline. No JVD or lymphadenopathy. CARDIOVASCULAR: Regular rate and rhythm without murmurs, gallops, or rubs. RESPIRATORY: Breath sounds equal bilaterally. No accessory muscle use. GASTROINTESTINAL: Abdomen soft, non-tender, nondistended. MUSCULOSKELETAL: No cyanosis, or edema. BACK: Nontender without obvious deformity. No CVA tenderness. Laboratory Laboratory Tests Test 05/13/16 07:24 White Blood Count 5.5 TH/MM3 Red Blood Count 3.18 MIL/MM3 Hemoglobin 10.1 GM/DL Hematocrit 29.3 % Mean Corpuscular Volume 92.4 FL Mean Corpuscular Hemoglobin 31.7 PG Mean Corpuscular Hemoglobin 34.4 % Concent Red Cell Distribution Width 17.0 % Platelet Count 247 TH/MM3 Mean Platelet Volume 7.5 FL Assessment and Plan Problem List: (1) Atrial fibrillation, new onset (2) Aortic stenosis (3) Hypertension (4) Hyperlipidemia (5) Depression (6) CAD (coronary artery disease) (7) Chest pain (8) Cardiomyopathy Assessment and Plan 1.) [place] - hgb improved, recurrent chest pain and now hypotensive, dc norvasc 10 , if hgb remains stable and patient still has chest pain with hgb>10 and controlled bp, consider cath, pci lad and/or rca, transfer to [facility], serial trop , d/w patient and nurse 2.) PAF - assymptomatic, hgb stablizing on eliquis, f/u hgb in am, may need to dc eliquis if hgb continues to decline, d/w Dr Marx Problem Qualifiers (1) CAD (coronary artery disease): Qualified Code: I25.10 - Coronary artery disease due to calcified coronary lesion (2) Chest pain: Qualified Code: R07.2 - Precordial pain Zohaib Valentin MD May 13, 2016 12:37
--- NOTE | 2016-05-13 14:32 | EKG ---
Date Performed: 05/13/2016 Time Performed: 10:11:33 PTAGE: 85 years EKG: Sinus rhythm WITH OCCASIONAL SUPRAVENTRICULAR PREMATURE COMPLEXES LEFT ANTERIOR FASCICULAR BLOCK VOLTAGE CRITERIA FOR LVH NONSPECIFIC T-WAVE ABNORMALITY Compared to prior tracing no significant change ABNORMAL ECG PREVIOUS TRACING : 05/10/2016 09.18 DOCTOR: Efrain Mcnulty Interpretating Date/Time 05/13/2016 14:32:27
--- NOTE | 2016-05-13 14:51 | HHI.PR ---
Subjective Remarks Patient c/o chest pain 04/14 denies sob, palpitations denies cough denies fevers and chills Objective Vitals Vital Signs Date Time Temp Pulse Resp B/P Pulse Ox O2 Delivery O2 Flow Rate FiO2 05/13/16 10:15 103/51 05/13/16 10:03 18 05/13/16 10:00 74 18 100/53 05/13/16 09:49 97.7 77 18 134/59 98 05/13/16 08:00 96.8 68 18 130/57 99 05/13/16 04:00 97.6 77 17 149/76 98 05/13/16 00:00 97.7 75 16 159/74 99 05/12/16 20:00 97.9 72 18 171/79 98 05/12/16 18:07 96 21 05/12/16 17:24 96 05/12/16 15:45 18 I/O 05/12/16 05/12/16 05/12/16 05/13/16 05/13/16 05/13/16 07:00 15:00 23:00 07:00 15:00 23:00 Intake Total 240 ml 480 ml 480 ml 240 ml Output Total 3000 ml Balance 240 ml -2520 ml 480 ml 240 ml Intake Oral 240 ml 480 ml 240 ml IV Total 480 ml Output Hemodialysis 3000 ml # Voids 0 2 1 # Bowel Movements 0 Result Diagram: 05/13/16 0724 05/12/16 0640 Imaging Last Impressions Aorta CTA 05/10/16 0000 Signed Impressions: Service Date/Time: Tuesday, May 10, 2016 15:13 - CONCLUSION: 1. There is no evidence of aortic dissection. The widening of the mediastinum seen on the chest x-ray appears to represent a combination of pleural fluid and atelectatic lung along the descending thoracic aorta. 2. There are COPD changes within the pulmonary parenchyma. 3. There are small bilateral effusions. 4. The abdominal aorta and iliac vessels are intact. Yehuda Hanna MD Chest X-Ray 05/09/16 1456 Signed Impressions: Service Date/Time: Monday, May 09, 2016 14:58 - CONCLUSION: 1. Possible superior mediastinal mass versus aneurysm. The superior mediastinum appears somewhat widened. 2. COPD changes. 3. Cardiomegaly. Yehuda Hanna MD Objective Remarks GENERAL: NAD, AAOx3 SKIN: Warm and dry. HEAD: Atraumatic. Normocephalic. EYES: Pupils equal and round. No scleral icterus. No injection or drainage. ENT: No nasal bleeding or discharge. Mucous membranes pink and moist. NECK: Trachea midline. No JVD. CARDIOVASCULAR: Regular rate and rhythm. systolic II/ murmur best hear in the 2nd left parasternal border. RESPIRATORY: No accessory muscle use. Clear to auscultation. Breath sounds equal bilaterally. GASTROINTESTINAL: Abdomen soft, non-tender, nondistended. Hepatic and splenic margins not palpable. MUSCULOSKELETAL: Extremities without clubbing, cyanosis, or edema. No obvious deformities. NEUROLOGICAL: Awake and alert. No obvious cranial nerve deficits. Motor grossly within normal limits. Five out of 5 muscle strength in the arms and legs. Normal speech. PSYCHIATRIC: Appropriate mood and affect; insight and judgment normal. Medications and IVs Current Medications Medications (Trade) Dose Ordered Sig/Thierry Route Start Time Stop Time Status Last Admin (Xanax) 0.25 mg Q8H PRN PO 05/09/16 17:15 05/13/16 10:28 (Coreg) 12.5 mg Q12HR PO 05/09/16 21:00 05/13/16 09:20 (Colace) 100 mg BID PO 05/09/16 21:00 05/13/16 09:21 (Renvela) 800 mg TID PO 05/09/16 18:00 05/13/16 09:20 (Xalatan 0.005% Opth Soln) 1 drop HS PRN EACH EYE 05/09/16 17:30 (NS Flush) 2 ml UNSCH PRN IV FLUSH 05/09/16 17:30 05/10/16 00:19 (NS Flush) 2 ml BID IV FLUSH 05/09/16 21:00 05/13/16 09:21 (Tylenol) 650 mg Q4H PRN PO 05/09/16 17:30 05/13/16 10:28 (Zofran Inj) 4 mg Q6H PRN IVP 05/09/16 17:30 (Dulcolax Supp) 10 mg DAILY PRN RECTAL 05/09/16 17:30 (Ambien) 5 mg HS PRN PO 05/09/16 17:30 Naloxone HCl 0.4 mg 0.4 mg UNSCH PRN IV 05/09/16 17:30 (NS 1000 ml Inj) 1,000 ml @ 0 mls/hr Q0M PRN IV 05/10/16 07:43 Heparin Sodium (Porcine) 8000 units 8,000 units UNSCH PRN IVF 05/10/16 07:45 Sodium Chloride 1,000 ml @ 200 mls/hr Q5H PRN IV 05/10/16 07:43 (NS 1000 ml Inj) 1,000 ml @ 0 mls/hr Q0M PRN IV 05/10/16 07:43 (Mannitol Inj) 12.5 gm UNSCH PRN IV 05/10/16 07:45 (Albumin 25% Inj) 25 gm UNSCH PRN IV 05/10/16 07:45 (NS Flush) 5 ml UNSCH PRN IV FLUSH 05/10/16 07:45 (Heparin Inj) UNSCH PRN .XX 05/10/16 07:45 (Gentamicin (Dialysis) Inj) 20 mg UNSCH PRN IV 05/10/16 07:45 (Zofran Inj) 4 mg UNSCH PRN IV 05/10/16 07:45 (Tylenol) 650 mg UNSCH PRN PO 05/10/16 07:45 05/11/16 18:55 (Benadryl) 25 mg UNSCH PRN PO 05/10/16 07:45 (Nitrostat Sl) 0.4 mg UNSCH PRN SL 05/10/16 07:45 05/13/16 10:07 (Catapres) 0.1 mg UNSCH PRN PO 05/10/16 07:45 (Epogen Inj) 10,000 units UNSCH PRN IV 05/10/16 07:45 05/12/16 11:51 (Gelfoam 12 Mm/7 Mm Top) 1 foam UNSCH PRN TOP 05/10/16 07:45 05/12/16 11:50 (Megace Liq) 800 mg DAILY PO 05/10/16 09:00 05/13/16 09:22 (Eliquis) 2.5 mg BID PO 05/11/16 21:00 05/13/16 09:26 Urinary Catheter: No Vascular Central Line Catheter: No A/P Problem List: (1) Unstable angina ICD Code: I20.0 Status: Acute Plan: The patient still complains of chest pain. Cardiology consulted. Cardiology recommends the patient continues to have chest pain despite of stable hemoglobin and a stable blood pressure. The patient should be transferred to the intensive care unit and a possible left heart catheterization with PCI to lad and/or rca. Continue to monitor serial EKGs. Continue to monitor serial cardiac enzymes. Continue aspirin, Plavix, beta yonatan. (2) Paroxysmal atrial fibrillation ICD Code: I48.0 Status: Acute Plan: On Gio was 2.5 mg by mouth twice a day. Continue carvedilol for rate control. Paroxysmal A. fib is rate controlled. (3) Mediastinal widening ICD Code: R93.8 Status: Acute Plan: Negative CTA. (4) COPD (chronic obstructive pulmonary disease) ICD Code: J44.9 Status: Acute Plan: Seems stable. (5) ESRD (end stage renal disease) ICD Code: N18.6 Status: Acute Plan: Nephrology following. Hemodialysis as per nephrology schedule on Mondays , Sunday and Sunday. (6) Severe anemia ICD Code: D64.9 Status: Acute Plan: Patient initially admitted with hemoglobin of 6.8. Status post transfusion of 2 units of packed blood cells. Continue to monitor hemoglobin. Distal quiet checked and negative. Iron studies consistent with anemia of chronic disease with marrow of 24, TIBC 116, percent saturation 11.1 and 935. Assessment and Plan GI prophylaxis: At PPI. DVT prophylaxis: SCDs, on eliquis. Discharge Planning Continue to monitor in the cardiac floor. Was ready by Dr. Iron [place] with hospice Problem Qualifiers (1) COPD (chronic obstructive pulmonary disease): David Giron MD May 13, 2016 14:51
[2016-05-14] VITALS (26 sets, daily range): BP systolic 110–148; BP diastolic 51–82; PULSE 58–77; RESP 16–18; TEMP 98.5–98.8; O2SAT 98–100
[2016-05-14] MEDS: ACETAMINOPHEN 325 MG TAB PO PRN ×2 (01:11→10:21)
[2016-05-14 05:36] LABS: ALKALINE PHOSPHATASE 118 U/L (45-117); ALT (GPT) 9 U/L (10-53); ANION GAP 8 MEQ/L (5-15); AST (GOT) 9 U/L (15-37); BICARBONATE 30.1 MEQ/L (21.0-32.0); BLOOD UREA NITROGEN 34 MG/DL (7-18); CHLORIDE 96 MEQ/L (98-107); GLOMERULAR FILTRATION RATE 10 ML/MIN (>89); POTASSIUM 4.4 MEQ/L (3.5-5.1); SODIUM (NA) 134 MEQ/L (136-145); TOTAL BILIRUBIN ADULT 0.2 MG/DL (0.2-1.0)
[2016-05-14 05:47] LABS: HEMATOCRIT 27.8 % (35.0-46.0); MEAN CELL VOLUME 93.3 FL (80.0-100.0); MEAN CORPUSCULAR HEMOGLOBIN 32.2 PG (27.0-34.0); MEAN CORPUSCULAR HGB CONC 34.5 % (32.0-36.0); PLATELET COUNT 252 TH/MM3 (150-450); RED BLOOD COUNT 2.98 MIL/MM3 (4.00-5.30); REVIEW FLAG FINAL; WHITE BLOOD COUNT 5.8 TH/MM3 (4.0-11.0)
[2016-05-14] MEDS: CARVEDILOL 12.5 MG TAB PO SCH ×2 (08:53→21:34)
[2016-05-14] MEDS: DOCUSATE SODIUM 100 MG CAP PO SCH ×2 (08:54→21:33)
[2016-05-14] MEDS: MEGESTROL ACETATE SUSP 400 MG/10 ML CUP PO SCH (08:54)
[2016-05-14] MEDS: APIXABAN 2.5 MG TABLET PO SCH ×2 (08:54→21:34)
[2016-05-14] MEDS: SODIUM CHLORIDE 0.9% FLUSH 10 ML FLUSH IV FLUSH SCH ×2 (08:55→21:34)
[2016-05-14] MEDS: amLODIPine BESYLATE 5 MG TAB PO SCH (08:55)
[2016-05-14] MEDS: SEVELAMER CARBONATE 800 MG TAB PO SCH ×3 (08:56→17:14)
[2016-05-14] MEDS ORDERED: amLODIPine BESYLATE 5 MG TAB PO ONE (09:00)
--- NOTE | 2016-05-14 10:06 | HHI.PR ---
Subjective Remarks Patient c/o chest pain - substernal 04/14 states started not long ago but unable to tell me the time denies sob denies nausea Objective Vitals Vital Signs Date Time Temp Pulse Resp B/P Pulse Ox O2 Delivery O2 Flow Rate FiO2 05/14/16 09:04 72 05/14/16 08:12 71 05/14/16 08:11 70 05/14/16 07:45 62 05/14/16 07:45 98.8 67 16 148/82 99 05/14/16 06:00 76 05/14/16 05:00 74 05/14/16 04:00 67 05/14/16 03:00 98.5 73 18 145/67 100 05/14/16 03:00 63 05/14/16 02:00 68 05/14/16 01:06 77 05/14/16 00:00 66 05/13/16 23:00 98.4 66 20 142/68 99 05/13/16 23:00 75 05/13/16 22:00 66 05/13/16 21:00 72 05/13/16 20:00 72 05/13/16 19:57 21 05/13/16 19:00 59 05/13/16 19:00 98.1 73 18 127/56 96 05/13/16 15:50 98.4 64 16 108/52 99 05/13/16 15:00 64 05/13/16 13:15 59 05/13/16 13:15 97.8 59 16 108/48 98 05/13/16 10:15 103/51 I/O 05/13/16 05/13/16 05/13/16 05/14/16 05/14/16 05/14/16 07:00 15:00 23:00 07:00 15:00 23:00 Intake Total 240 ml 480 ml 240 ml Output Total 100 ml Balance 240 ml 480 ml 140 ml Intake Oral 240 ml 480 ml 240 ml IV Total 0 ml Output Urine Total 100 ml # Voids 1 2 # Bowel Movements 0 Result Diagram: 05/14/16 0430 05/14/16 0430 Imaging Last Impressions Aorta CTA 05/10/16 0000 Signed Impressions: Service Date/Time: Tuesday, May 10, 2016 15:13 - CONCLUSION: 1. There is no evidence of aortic dissection. The widening of the mediastinum seen on the chest x-ray appears to represent a combination of pleural fluid and atelectatic lung along the descending thoracic aorta. 2. There are COPD changes within the pulmonary parenchyma. 3. There are small bilateral effusions. 4. The abdominal aorta and iliac vessels are intact. Yehuda Hanna MD Chest X-Ray 05/09/16 1456 Signed Impressions: Service Date/Time: Monday, May 09, 2016 14:58 - CONCLUSION: 1. Possible superior mediastinal mass versus aneurysm. The superior mediastinum appears somewhat widened. 2. COPD changes. 3. Cardiomegaly. Yehuda Hanna MD Objective Remarks GENERAL:mild distress due to chest pain, AAOx3, no respiratory distress. SKIN: Warm and dry. HEAD: Atraumatic. Normocephalic. EYES: Pupils equal and round. No scleral icterus. No injection or drainage. ENT: No nasal bleeding or discharge. Mucous membranes pink and moist. NECK: Trachea midline. No JVD. CARDIOVASCULAR: Regular rate and rhythm. systolic II/ murmur best hear in the 2nd left parasternal border. RESPIRATORY: No accessory muscle use. Clear to auscultation. Breath sounds equal bilaterally. GASTROINTESTINAL: Abdomen soft, non-tender, nondistended. Hepatic and splenic margins not palpable. MUSCULOSKELETAL: Extremities without clubbing, cyanosis, or edema. No obvious deformities. NEUROLOGICAL: Awake and alert. No obvious cranial nerve deficits. Motor grossly within normal limits. Five out of 5 muscle strength in the arms and legs. Normal speech. PSYCHIATRIC: Appropriate mood and affect; insight and judgment normal. Medications and IVs Current Medications Medications (Trade) Dose Ordered Sig/Thierry Route Start Time Stop Time Status Last Admin (Xanax) 0.25 mg Q8H PRN PO 05/09/16 17:15 05/13/16 10:28 (Coreg) 12.5 mg Q12HR PO 05/09/16 21:00 05/14/16 08:53 (Colace) 100 mg BID PO 05/09/16 21:00 05/14/16 08:54 (Renvela) 800 mg TID PO 05/09/16 18:00 05/14/16 08:56 (Xalatan 0.005% Opth Soln) 1 drop HS PRN EACH EYE 05/09/16 17:30 (NS Flush) 2 ml UNSCH PRN IV FLUSH 05/09/16 17:30 05/10/16 00:19 (NS Flush) 2 ml BID IV FLUSH 05/09/16 21:00 05/14/16 08:55 (Tylenol) 650 mg Q4H PRN PO 05/09/16 17:30 05/14/16 01:11 (Zofran Inj) 4 mg Q6H PRN IVP 05/09/16 17:30 (Dulcolax Supp) 10 mg DAILY PRN RECTAL 05/09/16 17:30 (Ambien) 5 mg HS PRN PO 05/09/16 17:30 Naloxone HCl 0.4 mg 0.4 mg UNSCH PRN IV 05/09/16 17:30 (NS 1000 ml Inj) 1,000 ml @ 0 mls/hr Q0M PRN IV 05/10/16 07:43 Heparin Sodium (Porcine) 8000 units 8,000 units UNSCH PRN IVF 05/10/16 07:45 Sodium Chloride 1,000 ml @ 200 mls/hr Q5H PRN IV 05/10/16 07:43 (NS 1000 ml Inj) 1,000 ml @ 0 mls/hr Q0M PRN IV 05/10/16 07:43 (Mannitol Inj) 12.5 gm UNSCH PRN IV 05/10/16 07:45 (Albumin 25% Inj) 25 gm UNSCH PRN IV 05/10/16 07:45 (NS Flush) 5 ml UNSCH PRN IV FLUSH 05/10/16 07:45 (Heparin Inj) UNSCH PRN .XX 05/10/16 07:45 (Gentamicin (Dialysis) Inj) 20 mg UNSCH PRN IV 05/10/16 07:45 (Zofran Inj) 4 mg UNSCH PRN IV 05/10/16 07:45 (Tylenol) 650 mg UNSCH PRN PO 05/10/16 07:45 05/11/16 18:55 (Benadryl) 25 mg UNSCH PRN PO 05/10/16 07:45 (Nitrostat Sl) 0.4 mg UNSCH PRN SL 05/10/16 07:45 05/13/16 10:07 (Catapres) 0.1 mg UNSCH PRN PO 05/10/16 07:45 (Epogen Inj) 10,000 units UNSCH PRN IV 05/10/16 07:45 05/12/16 11:51 (Gelfoam 12 Mm/7 Mm Top) 1 foam UNSCH PRN TOP 05/10/16 07:45 05/12/16 11:50 (Megace Liq) 800 mg DAILY PO 05/10/16 09:00 05/14/16 08:54 (Eliquis) 2.5 mg BID PO 05/11/16 21:00 05/14/16 08:54 (Norvasc) 5 mg DAILY PO 05/14/16 09:00 05/14/16 08:55 Urinary Catheter: No Vascular Central Line Catheter: No A/P Problem List: (1) Unstable angina ICD Code: I20.0 Status: Acute Plan: The patient still complains of chest pain. Cardiology consulted. Cardiology recommends the patient continues to have chest pain despite of stable hemoglobin and a stable blood pressure. Possible left heart catheterization with PCI to lad and/or rca. Continue to monitor serial EKGs. Continue to monitor serial cardiac enzymes. Continue aspirin, Plavix, beta yonatan. Continue nitroglycerin sublingual. Will add Tramadol for chest pain - patient states she had it many years ago and does not have any allergy to it. fu cardiology recommendations. (2) Paroxysmal atrial fibrillation ICD Code: I48.0 Status: Acute Plan: On Eliquis. Continue carvedilol for rate control. Paroxysmal A. fib is rate controlled. (3) Mediastinal widening ICD Code: R93.8 Status: Acute Plan: Negative CTA. (4) COPD (chronic obstructive pulmonary disease) ICD Code: J44.9 Status: Acute Plan: Seems stable. Not on any inhalers. (5) ESRD (end stage renal disease) ICD Code: N18.6 Status: Acute Plan: Nephrology following. Hemodialysis as per nephrology schedule on Mondays , Sunday and Sunday. (6) Severe anemia ICD Code: D64.9 Status: Acute Plan: Patient initially admitted with hemoglobin of 6.8. Status post transfusion of 2 units of packed blood cells. Continue to monitor hemoglobin. Ocult blood in feces checked and negative. Iron studies consistent with anemia of chronic disease with marrow of 24, TIBC 116, percent saturation 11.1 and 935. hemoglobin stable - slight down trend 10.1 to 9.6 (7) Hypertension ICD Code: I10 Status: Acute Plan: Bp somewhat on lower side. Amlodipine dose decreased to 5 mg daily. Bp now better. (8) Hyponatremia ICD Code: E87.1 Status: Acute Plan: mild and stable at 134. Continue to monitor BMP. Management as per nephrology. Assessment and Plan GI prophylaxis: Continue PPI DVT prophylaxis: SCDs, on eliquis. Discharge Planning Continue to monitor in the cardiac floor. Once ready by Dr. Iron [place] with hospice Problem Qualifiers (1) COPD (chronic obstructive pulmonary disease): (2) Hypertension: Qualified Code: I10 - Essential hypertension David Giron MD May 14, 2016 10:06
--- NOTE | 2016-05-14 10:21 | HHI.NPPN ---
Subjective General Problems: Anemia Renal Failure: Chronic, End Stage Renal Disease Additional Remarks Ongoing weakness and mild chest pains today Review of Systems General Constitutional: Fatigue Cardiovascular Cardiac Remarks no recent chest pain Objective Data Data 05/13/16 05/14/16 19:00 07:00 Intake Total 480 ml 240 ml Output Total 100 ml Balance 480 ml 140 ml Intake Oral 480 ml 240 ml IV Total 0 ml Output Urine Total 100 ml # Voids 2 # Bowel Movements 0 Vital Signs Date Time Temp Pulse Resp B/P Pulse Ox O2 Delivery O2 Flow Rate FiO2 05/14/16 10:08 70 05/14/16 09:04 72 05/14/16 08:12 71 05/14/16 08:11 70 05/14/16 07:45 62 05/14/16 07:45 98.8 67 16 148/82 99 05/14/16 06:00 76 05/14/16 05:00 74 05/14/16 04:00 67 05/14/16 03:00 98.5 73 18 145/67 100 05/14/16 03:00 63 05/14/16 02:00 68 05/14/16 01:06 77 05/14/16 00:00 66 05/13/16 23:00 98.4 66 20 142/68 99 05/13/16 23:00 75 05/13/16 22:00 66 05/13/16 21:00 72 05/13/16 20:00 72 05/13/16 19:57 21 05/13/16 19:00 59 05/13/16 19:00 98.1 73 18 127/56 96 05/13/16 15:50 98.4 64 16 108/52 99 05/13/16 15:00 64 05/13/16 13:15 59 05/13/16 13:15 97.8 59 16 108/48 98 -: 05/14/16 0430 05/14/16 0430 Physical Exam General Appearance: Well Developed, Well Nourished, No Acute Distress, Comfortable, Malnourished Eyes Eye Exam: Pupils Equal Throat Throat Exam: Oral Mucosa [place] & Moist Neck Neck Exam: Neck Supple Pulmonary Resp Exam: Clear Bilaterally, Breath Sounds Equal, No Distress Cardiology CV Exam: Regular, Good Perfusion, Dyspnea on Exertion Gastrointestinal/Abdomen GI Exam: Soft, Non-Tender, Bowel Sounds Present Musculoskeletal MS Exam: Joints Intact, Normal Tone Integumentary Skin Exam: Clear, Warm, Dry, Intact Extremeties Extremities Exam: No Edema, Pedal Pulses Palpable Neurologic Neuro Exam: Alert, Awake, Oriented, Speech Clear, Moving All Extremities Assessment/Plan Assessment Summary: Anemia of CKD, Hypertension, End Stage Renal Disease Problem List: (1) ESRD (end stage renal disease) Plan: Tolerated HD Sunday, plan next HD tomorrow We will continue dialysis MWF. Volume status, electrolytes stable no acute renal concerns avoid IVF, gadolinium (2) Cardiomyopathy Plan: Monitor. adjust UF with dialysis cardiology following - plan for possible cath (3) Anemia Plan: on epogen with HD Hgb 9.6 today (4) Atrial fibrillation Plan: Rate controlled follow with cardiology Yehuda Salazar MD May 14, 2016 10:21
--- NOTE | 2016-05-14 11:14 | PD.CARD.PN ---
Subjective Subjective Remarks no chest pain this am Objective Vital Signs / I&O Vital Signs Date Time Temp Pulse Resp B/P Pulse Ox O2 Delivery O2 Flow Rate FiO2 05/14/16 10:08 70 05/14/16 09:04 72 05/14/16 08:12 71 05/14/16 08:11 70 05/14/16 07:45 62 05/14/16 07:45 98.8 67 16 148/82 99 05/14/16 06:00 76 05/14/16 05:00 74 05/14/16 04:00 67 05/14/16 03:00 98.5 73 18 145/67 100 05/14/16 03:00 63 05/14/16 02:00 68 05/14/16 01:06 77 05/14/16 00:00 66 05/13/16 23:00 98.4 66 20 142/68 99 05/13/16 23:00 75 05/13/16 22:00 66 05/13/16 21:00 72 05/13/16 20:00 72 05/13/16 19:57 21 05/13/16 19:00 59 05/13/16 19:00 98.1 73 18 127/56 96 05/13/16 15:50 98.4 64 16 108/52 99 05/13/16 15:00 64 05/13/16 13:15 59 05/13/16 13:15 97.8 59 16 108/48 98 I/O 05/13/16 05/13/16 05/13/16 05/14/16 05/14/16 05/14/16 07:00 15:00 23:00 07:00 15:00 23:00 Intake Total 240 ml 480 ml 240 ml Output Total 100 ml Balance 240 ml 480 ml 140 ml Intake Oral 240 ml 480 ml 240 ml IV Total 0 ml Output Urine Total 100 ml # Voids 1 2 # Bowel Movements 0 Physical Exam GENERAL: SKIN: Warm and dry. HEAD: Normocephalic. EYES: No scleral icterus. No injection or drainage. NECK: Supple, trachea midline. No JVD or lymphadenopathy. CARDIOVASCULAR: Regular rate and rhythm without murmurs, gallops, or rubs. RESPIRATORY: Breath sounds equal bilaterally. No accessory muscle use. GASTROINTESTINAL: Abdomen soft, non-tender, nondistended. MUSCULOSKELETAL: No cyanosis, or edema. BACK: Nontender without obvious deformity. No CVA tenderness. Laboratory Laboratory Tests Test 05/13/16 05/13/16 05/13/16 05/13/16 11:54 13:01 15:11 18:30 Total Creatine Kinase 37 U/L Troponin I 0.04 NG/ML 0.04 NG/ML 0.05 NG/ML Nasal Screen MRSA (PCR) NEGATIVE Test 05/14/16 04:30 White Blood Count 5.8 TH/MM3 Red Blood Count 2.98 MIL/MM3 Hemoglobin 9.6 GM/DL Hematocrit 27.8 % Mean Corpuscular Volume 93.3 FL Mean Corpuscular Hemoglobin 32.2 PG Mean Corpuscular Hemoglobin 34.5 % Concent Red Cell Distribution Width 17.0 % Platelet Count 252 TH/MM3 Mean Platelet Volume 7.6 FL Sodium Level 134 MEQ/L Potassium Level 4.4 MEQ/L Chloride Level 96 MEQ/L Carbon Dioxide Level 30.1 MEQ/L Anion Gap 8 MEQ/L Blood Urea Nitrogen 34 MG/DL Creatinine 4.98 MG/DL Estimat Glomerular Filtration 10 ML/MIN Rate Random Glucose 92 MG/DL Calcium Level 9.2 MG/DL Total Bilirubin 0.2 MG/DL Aspartate Amino Transf 9 U/L (AST/SGOT) Alanine Aminotransferase 9 U/L (ALT/SGPT) Alkaline Phosphatase 118 U/L Total Protein 5.9 GM/DL Albumin 2.5 GM/DL Assessment and Plan Problem List: (1) Atrial fibrillation, new onset (2) Aortic stenosis (3) Hypertension (4) Hyperlipidemia (5) Depression (6) CAD (coronary artery disease) (7) Chest pain (8) Cardiomyopathy Assessment and Plan 1.) [place] - hgb improved, recurrent chest pain and now hypotensive, dc norvasc 10 , if hgb remains stable and patient still has chest pain with hgb>10 and controlled bp, plan cath, ffr lad and rca and pci lad and/or rca if ffr<.80, may need blood transfusion with next dialysis if hgb <10 prior to cath/ffr/pci 2.) PAF - assymptomatic, hgb declining on eliquis, f/u hgb in am, may need to dc eliquis if hgb continues to decline, d/w Dr Marx Problem Qualifiers (1) Hypertension: Qualified Code: I10 - Essential hypertension (2) CAD (coronary artery disease): Qualified Code: I25.10 - Coronary artery disease due to calcified coronary lesion (3) Chest pain: Qualified Code: R07.2 - Precordial pain Zohaib Valentin MD May 14, 2016 11:14
[2016-05-14] MEDS: traMADol HCL 50 MG TAB PO PRN (17:14)
[2016-05-15] VITALS (21 sets, daily range): BP systolic 116–157; BP diastolic 53–77; PULSE 56–73; RESP 16–22; TEMP 97.5–98.9; O2SAT 96–100
[2016-05-15 06:24] LABS: AUTOMATED NEUTROPHIL # 3.7 TH/MM3 (1.8-7.7); BASOPHIL # 0.1 TH/MM3 (0-0.2); BASOPHIL % 0.8 % (0.0-2.0); EOSINOPHIL # 0.4 TH/MM3 (0-0.4); EOSINOPHIL % 5.9 % (0.0-4.0); HEMO FLAGS DIFF FINAL; LYMPHOCYTE # 1.7 TH/MM3 (1.0-4.8); MEAN CELL VOLUME 94.9 FL (80.0-100.0); MEAN CORPUSCULAR HEMOGLOBIN 32.8 PG (27.0-34.0); MEAN CORPUSCULAR HGB CONC 34.6 % (32.0-36.0); MONO % 9.6 % (0.0-8.0); NEUT % 57.7 % (16.0-70.0); PLATELET COUNT 294 TH/MM3 (150-450); RED BLOOD COUNT 3.06 MIL/MM3 (4.00-5.30); RED CELL DISTRIBUTION WIDTH 16.7 % (11.6-17.2); WHITE BLOOD COUNT 6.4 TH/MM3 (4.0-11.0)
[2016-05-15 07:03] LABS: BICARBONATE 26.2 MEQ/L (21.0-32.0)
--- NOTE | 2016-05-15 09:30 | HHI.NPPN ---
Subjective General Problems: Anemia Renal Failure: Chronic, End Stage Renal Disease Interval History Seen in preparation for dialysis. She has had recurrent chest pain, tearful about possible catheterization. (Lelo Chong) Review of Systems General Constitutional: Fatigue (Lelo Chong) Cardiovascular Cardiac: Chest Pain (Lelo Chong) Objective Data Data 05/14/16 05/15/16 19:00 07:00 Intake Total 600 ml 480 ml Output Total 100 ml 0 ml Balance 500 ml 480 ml Intake Oral 600 ml 480 ml Output Urine Total 100 ml 0 ml Vital Signs Date Time Temp Pulse Resp B/P Pulse Ox O2 Delivery O2 Flow Rate FiO2 05/15/16 07:00 61 05/15/16 06:00 64 05/15/16 05:00 60 05/15/16 04:00 62 05/15/16 03:00 98.2 60 16 139/63 99 05/15/16 03:00 60 05/15/16 02:00 58 05/15/16 01:00 58 05/15/16 00:00 98.7 64 22 116/53 96 05/15/16 00:00 62 05/14/16 23:00 62 05/14/16 22:00 62 05/14/16 21:50 21 05/14/16 21:00 58 05/14/16 20:00 58 05/14/16 20:00 98.7 64 16 145/69 98 05/14/16 19:32 61 05/14/16 19:00 60 05/14/16 18:26 18 05/14/16 18:06 63 05/14/16 17:24 70 05/14/16 16:04 69 05/14/16 15:33 98.8 60 16 113/52 99 05/14/16 15:33 66 05/14/16 14:24 69 05/14/16 13:33 71 05/14/16 12:12 70 05/14/16 11:32 18 05/14/16 11:28 63 05/14/16 11:28 98.8 63 16 110/51 100 05/14/16 10:08 70 (Lelo Chong) -: 05/15/1651605/15/16516 Physical Exam General Appearance: Well Developed, Well Nourished, No Acute Distress, Comfortable, Malnourished (Lelo Chong) Eyes Eye Exam: Pupils Equal (Lelo Chong) Throat Throat Exam: Oral Mucosa [place] & Moist (Lelo Chong) Neck Neck Exam: Neck Supple (Lelo Chong) Pulmonary Resp Exam: Clear Bilaterally, Breath Sounds Equal, No Distress (Lelo Chong) Cardiology CV Exam: Regular, Good Perfusion, Dyspnea on Exertion (Lelo Chong) Gastrointestinal/Abdomen GI Exam: Soft, Non-Tender, Bowel Sounds Present (Lelo Chong) Musculoskeletal MS Exam: Joints Intact, Normal Tone (Lelo Chong) Integumentary Skin Exam: Clear, Warm, Dry, Intact (Lelo Chong) Extremeties Extremities Exam: No Edema, Pedal Pulses Palpable Extremeties Remarks right AVF, + thrill/bruit (Lelo Chong) Neurologic Neuro Exam: Alert, Awake, Oriented, Speech Clear, Moving All Extremities ( Lelo Chong) Assessment/Plan Assessment Summary: Anemia of CKD, Hypertension, End Stage Renal Disease Problem List: (1) ESRD (end stage renal disease) Plan: HD MWF, seen in preparation for dialysis; she will be dialyzed on a 2K, BFR 400, goal 3L We will continue dialysis MWF. Volume status, electrolytes stable no acute renal concerns avoid IVF, gadolinium functioning AVF for dialysis (2) Cardiomyopathy Plan: Monitor. adjust UF with dialysis cardiology following - plan for possible cath (3) Anemia Plan: on epogen with HD Hb stable (4) Atrial fibrillation Plan: Rate controlled follow with cardiology (Lelo Chong) Plan patient was seen and examined. Agree with above assessment and plan. Dialysis will be continued MWF. Patient can be discharged from renal standpoint. ( Roland Miramontes MD) Lelo Chong May 15, 2016 09:30 Roland Miramontes MD May 15, 2016 10:57
[2016-05-15] MEDS: EPOETIN ALFA 10,000 UNITS/ML VIAL IV PRN (12:21)
--- NOTE | 2016-05-15 12:50 | PD.CARD.PN ---
Subjective Subjective Remarks alert in nad Objective Vital Signs / I&O Vital Signs Date Time Temp Pulse Resp B/P Pulse Ox O2 Delivery O2 Flow Rate FiO2 05/15/16 09:00 70 05/15/16 08:00 97.5 56 16 157/65 98 05/15/16 08:00 64 05/15/16 07:00 61 05/15/16 06:00 64 05/15/16 05:00 60 05/15/16 04:00 62 05/15/16 03:00 98.2 60 16 139/63 99 05/15/16 03:00 60 05/15/16 02:00 58 05/15/16 01:00 58 05/15/16 00:00 98.7 64 22 116/53 96 05/15/16 00:00 62 05/14/16 23:00 62 05/14/16 22:00 62 05/14/16 21:50 21 05/14/16 21:00 58 05/14/16 20:00 58 05/14/16 20:00 98.7 64 16 145/69 98 05/14/16 19:32 61 05/14/16 19:00 60 05/14/16 18:26 18 05/14/16 18:06 63 05/14/16 17:24 70 05/14/16 16:04 69 05/14/16 15:33 98.8 60 16 113/52 99 05/14/16 15:33 66 05/14/16 14:24 69 05/14/16 13:33 71 I/O 05/14/16 05/14/16 05/14/16 05/15/16 05/15/16 05/15/16 07:00 15:00 23:00 07:00 15:00 23:00 Intake Total 240 ml 600 ml 480 ml Output Total 100 ml 100 ml 0 ml Balance 140 ml 500 ml 480 ml Intake Oral 240 ml 600 ml 480 ml IV Total 0 ml Output Urine Total 100 ml 100 ml 0 ml # Bowel Movements 0 Physical Exam GENERAL: SKIN: Warm and dry. HEAD: Normocephalic. EYES: No scleral icterus. No injection or drainage. NECK: Supple, trachea midline. No JVD or lymphadenopathy. CARDIOVASCULAR: Regular rate and rhythm without murmurs, gallops, or rubs. RESPIRATORY: Breath sounds equal bilaterally. No accessory muscle use. GASTROINTESTINAL: Abdomen soft, non-tender, nondistended. MUSCULOSKELETAL: No cyanosis, or edema. BACK: Nontender without obvious deformity. No CVA tenderness. Laboratory Laboratory Tests Test 05/15/16 05:17 White Blood Count 6.4 TH/MM3 Red Blood Count 3.06 MIL/MM3 Hemoglobin 10.0 GM/DL Hematocrit 29.0 % Mean Corpuscular Volume 94.9 FL Mean Corpuscular Hemoglobin 32.8 PG Mean Corpuscular Hemoglobin 34.6 % Concent Red Cell Distribution Width 16.7 % Platelet Count 294 TH/MM3 Mean Platelet Volume 7.6 FL Neutrophils (%) (Auto) 57.7 % Lymphocytes (%) (Auto) 26.0 % Monocytes (%) (Auto) 9.6 % Eosinophils (%) (Auto) 5.9 % Basophils (%) (Auto) 0.8 % Neutrophils # (Auto) 3.7 TH/MM3 Lymphocytes # (Auto) 1.7 TH/MM3 Monocytes # (Auto) 0.6 TH/MM3 Eosinophils # (Auto) 0.4 TH/MM3 Basophils # (Auto) 0.1 TH/MM3 CBC Comment DIFF FINAL Differential Comment Sodium Level 134 MEQ/L Potassium Level 5.0 MEQ/L Chloride Level 98 MEQ/L Carbon Dioxide Level 26.2 MEQ/L Anion Gap 10 MEQ/L Blood Urea Nitrogen 46 MG/DL Creatinine 5.95 MG/DL Estimat Glomerular Filtration 8 ML/MIN Rate Random Glucose 96 MG/DL Calcium Level 9.3 MG/DL Assessment and Plan Problem List: (1) Atrial fibrillation, new onset (2) Aortic stenosis (3) Hypertension (4) Hyperlipidemia (5) Depression (6) CAD (coronary artery disease) (7) Chest pain (8) Cardiomyopathy Assessment and Plan 1.) [place] - hgb improved, recurrent chest pain and now hypotensive, dc norvasc 10 , if hgb remaining stable, plan cath, ffr lad and rca and pci lad and/or rca if ffr<.80 05/16/16, may need blood transfusion with next dialysis if hgb <10, hold eliquis 2.) PAF - assymptomatic, hgb declining on eliquis, f/u hgb in am, may need to dc eliquis if hgb continues to decline, d/w Dr Marx Problem Qualifiers (1) Hypertension: Qualified Code: I10 - Essential hypertension (2) CAD (coronary artery disease): Qualified Code: I25.10 - Coronary artery disease due to calcified coronary lesion (3) Chest pain: Qualified Code: R07.2 - Precordial pain Zohaib Valentin MD May 15, 2016 12:50
[2016-05-15] MEDS: ACETAMINOPHEN 325 MG TAB PO PRN (13:07)
[2016-05-15] MEDS: SEVELAMER CARBONATE 800 MG TAB PO SCH ×3 (13:17→17:30)
[2016-05-15] MEDS: DOCUSATE SODIUM 100 MG CAP PO SCH ×2 (13:36→21:00)
[2016-05-15] MEDS: SODIUM CHLORIDE 0.9% FLUSH 10 ML FLUSH IV FLUSH SCH ×2 (13:37→21:00)
[2016-05-15] MEDS: MEGESTROL ACETATE SUSP 400 MG/10 ML CUP PO SCH (13:37)
[2016-05-15] MEDS: traMADol HCL 50 MG TAB PO PRN (13:37)
[2016-05-15] MEDS: amLODIPine BESYLATE 5 MG TAB PO SCH (13:37)
[2016-05-15] MEDS: CARVEDILOL 12.5 MG TAB PO SCH ×2 (13:37→22:00)
[2016-05-15] MEDS: diphenhydrAMINE HCL 25 MG CAP PO PRN ×2 (14:01→22:00)
--- NOTE | 2016-05-15 18:17 | HHI.PR ---
Subjective Remarks denies cp/sob Objective Vitals Vital Signs Date Time Temp Pulse Resp B/P Pulse Ox O2 Delivery O2 Flow Rate FiO2 05/15/16 18:00 63 05/15/16 17:00 62 05/15/16 16:00 65 05/15/16 16:00 98.4 65 16 121/59 99 05/15/16 15:00 64 05/15/16 14:11 72 05/15/16 13:15 73 05/15/16 13:15 98.9 71 20 150/77 100 05/15/16 09:00 70 05/15/16 08:00 97.5 56 16 157/65 98 05/15/16 08:00 64 05/15/16 07:00 61 05/15/16 06:00 64 05/15/16 05:00 60 05/15/16 04:00 62 05/15/16 03:00 98.2 60 16 139/63 99 05/15/16 03:00 60 05/15/16 02:00 58 05/15/16 01:00 58 05/15/16 00:00 98.7 64 22 116/53 96 05/15/16 00:00 62 05/14/16 23:00 62 05/14/16 22:00 62 05/14/16 21:50 21 05/14/16 21:00 58 05/14/16 20:00 58 05/14/16 20:00 98.7 64 16 145/69 98 05/14/16 19:32 61 05/14/16 19:00 60 05/14/16 18:26 18 I/O 05/14/16 05/14/16 05/14/16 05/15/16 05/15/16 05/15/16 07:00 15:00 23:00 07:00 15:00 23:00 Intake Total 240 ml 600 ml 480 ml 420 ml Output Total 100 ml 100 ml 0 ml 1500 ml 150 ml Balance 140 ml 500 ml 480 ml -1500 ml 270 ml Intake Oral 240 ml 600 ml 480 ml 420 ml IV Total 0 ml Output Urine Total 100 ml 100 ml 0 ml 150 ml Hemodialysis 1500 ml # Bowel Movements 0 0 Result Diagram: 05/15/1651605/15/16516 Imaging Last Impressions Aorta CTA 05/10/16 0000 Signed Impressions: Service Date/Time: Tuesday, May 10, 2016 15:13 - CONCLUSION: 1. There is no evidence of aortic dissection. The widening of the mediastinum seen on the chest x-ray appears to represent a combination of pleural fluid and atelectatic lung along the descending thoracic aorta. 2. There are COPD changes within the pulmonary parenchyma. 3. There are small bilateral effusions. 4. The abdominal aorta and iliac vessels are intact. Yehuda Hanna MD Chest X-Ray 05/09/16 [id number] Signed Impressions: Service Date/Time: Monday, May 09, 2016 14:58 - CONCLUSION: 1. Possible superior mediastinal mass versus aneurysm. The superior mediastinum appears somewhat widened. 2. COPD changes. 3. Cardiomegaly. Yehuda Hanna MD Objective Remarks GENERAL:mild distress due to chest pain, AAOx3, no respiratory distress. SKIN: Warm and dry. HEAD: Atraumatic. Normocephalic. EYES: Pupils equal and round. No scleral icterus. No injection or drainage. ENT: No nasal bleeding or discharge. Mucous membranes pink and moist. NECK: Trachea midline. No JVD. CARDIOVASCULAR: Regular rate and rhythm. systolic II/ murmur best hear in the 2nd left parasternal border. RESPIRATORY: No accessory muscle use. Clear to auscultation. Breath sounds equal bilaterally. GASTROINTESTINAL: Abdomen soft, non-tender, nondistended. Hepatic and splenic margins not palpable. MUSCULOSKELETAL: Extremities without clubbing, cyanosis, or edema. No obvious deformities. NEUROLOGICAL: Awake and alert. No obvious cranial nerve deficits. Motor grossly within normal limits. Five out of 5 muscle strength in the arms and legs. Normal speech. PSYCHIATRIC: Appropriate mood and affect; insight and judgment normal. Medications and IVs Current Medications Medications (Trade) Dose Ordered Sig/Thierry Route Start Time Stop Time Status Last Admin (Xanax) 0.25 mg Q8H PRN PO 05/09/16 17:15 05/13/16 10:28 (Coreg) 12.5 mg Q12HR PO 05/09/16 21:00 05/15/16 13:37 (Colace) 100 mg BID PO 05/09/16 21:00 05/15/16 13:36 (Renvela) 800 mg TID PO 05/09/16 18:00 05/15/16 17:30 (Xalatan 0.005% Opth Soln) 1 drop HS PRN EACH EYE 05/09/16 17:30 (NS Flush) 2 ml UNSCH PRN IV FLUSH 05/09/16 17:30 05/10/16 00:19 (NS Flush) 2 ml BID IV FLUSH 05/09/16 21:00 05/15/16 13:37 (Tylenol) 650 mg Q4H PRN PO 05/09/16 17:30 05/14/16 01:11 (Zofran Inj) 4 mg Q6H PRN IVP 05/09/16 17:30 (Dulcolax Supp) 10 mg DAILY PRN RECTAL 05/09/16 17:30 (Ambien) 5 mg HS PRN PO 05/09/16 17:30 Naloxone HCl 0.4 mg 0.4 mg UNSCH PRN IV 05/09/16 17:30 (NS 1000 ml Inj) 1,000 ml @ 0 mls/hr Q0M PRN IV 05/10/16 07:43 Heparin Sodium (Porcine) 8000 units 8,000 units UNSCH PRN IVF 05/10/16 07:45 Sodium Chloride 1,000 ml @ 200 mls/hr Q5H PRN IV 05/10/16 07:43 (NS 1000 ml Inj) 1,000 ml @ 0 mls/hr Q0M PRN IV 05/10/16 07:43 (Mannitol Inj) 12.5 gm UNSCH PRN IV 05/10/16 07:45 (Albumin 25% Inj) 25 gm UNSCH PRN IV 05/10/16 07:45 (NS Flush) 5 ml UNSCH PRN IV FLUSH 05/10/16 07:45 (Heparin Inj) UNSCH PRN .XX 05/10/16 07:45 (Gentamicin (Dialysis) Inj) 20 mg UNSCH PRN IV 05/10/16 07:45 (Zofran Inj) 4 mg UNSCH PRN IV 05/10/16 07:45 (Tylenol) 650 mg UNSCH PRN PO 05/10/16 07:45 05/15/16 13:07 (Benadryl) 25 mg UNSCH PRN PO 05/10/16 07:45 05/15/16 14:01 (Nitrostat Sl) 0.4 mg UNSCH PRN SL 05/10/16 07:45 05/13/16 10:07 (Catapres) 0.1 mg UNSCH PRN PO 05/10/16 07:45 (Epogen Inj) 10,000 units UNSCH PRN IV 05/10/16 07:45 05/15/16 12:21 (Gelfoam 12 Mm/7 Mm Top) 1 foam UNSCH PRN TOP 05/10/16 07:45 05/12/16 11:50 (Megace Liq) 800 mg DAILY PO 05/10/16 09:00 05/15/16 13:37 (Norvasc) 5 mg DAILY PO 05/14/16 09:00 05/15/16 13:37 (Ultram) 50 mg Q12H PRN PO 05/14/16 10:30 05/15/16 13:37 Urinary Catheter: No Vascular Central Line Catheter: No A/P Problem List: (1) Unstable angina ICD Code: I20.0 Status: Acute (2) Paroxysmal atrial fibrillation ICD Code: I48.0 Status: Acute (3) Mediastinal widening ICD Code: R93.8 Status: Acute (4) COPD (chronic obstructive pulmonary disease) ICD Code: J44.9 Status: Acute (5) ESRD (end stage renal disease) ICD Code: N18.6 Status: Acute (6) Severe anemia ICD Code: D64.9 Status: Acute (7) Hypertension ICD Code: I10 Status: Acute (8) Hyponatremia ICD Code: E87.1 Status: Acute Assessment and Plan (1) Unstable angina Plan: No further chest pain. Cardiology consulted. Cardiology recommends the patient continues to have chest pain despite of stable hemoglobin and a stable blood pressure. Possible left heart catheterization with PCI to lad and/or rca. Continue to monitor serial EKGs. Continue to monitor serial cardiac enzymes. Continue aspirin, Plavix, beta yonatan. Continue nitroglycerin sublingual. Will add Tramadol for chest pain - patient states she had it many years ago and does not have any allergy to it. fu cardiology recommendations. 05/15 For heart catheterization on 05/16. (2) Paroxysmal atrial fibrillation Plan: On Eliquis. Continue carvedilol for rate control. Paroxysmal A. fib is rate controlled. (3) Mediastinal widening Plan: Negative CTA. (4) COPD (chronic obstructive pulmonary disease) Plan: Seems stable. Not on any inhalers. (5) ESRD (end stage renal disease) Plan: Nephrology following. Hemodialysis as per nephrology schedule on Mondays , Sunday and Sunday. (6) Severe anemia Plan: Patient initially admitted with hemoglobin of 6.8. Status post transfusion of 2 units of packed blood cells. Continue to monitor hemoglobin. Ocult blood in feces checked and negative. Iron studies consistent with anemia of chronic disease with marrow of 24, TIBC 116, percent saturation 11.1 and 935. hemoglobin stable - slight down trend 10.1 to 9.6 (7) Hypertension Plan: Bp somewhat on lower side. Amlodipine dose decreased to 5 mg daily. Bp now better. (8) Hyponatremia Plan: mild and stable at 134. Continue to monitor BMP. Management as per nephrology. GI prophylaxis: Continue PPI DVT prophylaxis: SCDs, on eliquis. Discharge Planning Continue to monitor in the cardiac floor. Once ready DC to [facility] with hospice Problem Qualifiers (1) COPD (chronic obstructive pulmonary disease): (2) Hypertension: Qualified Code: I10 - Essential hypertension David Giron MD May 15, 2016 18:17
[2016-05-15] MEDS: ZOLPIDEM TARTRATE 5 MG TAB PO PRN (22:00)
[2016-05-16] VITALS (18 sets, daily range): BP systolic 115–151; BP diastolic 57–87; PULSE 54–89; RESP 16–24; TEMP 97.6–98.6; O2SAT 95–100
[2016-05-16] MEDS ORDERED: DOPamine INJ PREMIX 500 ML IV ONE (05:00)
[2016-05-16] MEDS ORDERED: EPINEPHrine HCL (1:10,000) 1 MG/10 ML SYRINGE IV ONE (05:00)
[2016-05-16] MEDS ORDERED: ATROPINE SULFATE 1 MG/10 ML SYRINGE IV ONE (05:00)
[2016-05-16 07:09] LABS: HEMATOCRIT 32.7 % (35.0-46.0); MEAN CELL VOLUME 94.2 FL (80.0-100.0); MEAN CORPUSCULAR HEMOGLOBIN 31.2 PG (27.0-34.0); MEAN CORPUSCULAR HGB CONC 33.1 % (32.0-36.0); PLATELET COUNT 276 TH/MM3 (150-450); RED BLOOD COUNT 3.47 MIL/MM3 (4.00-5.30); REVIEW FLAG FINAL
[2016-05-16 07:22] LABS: BICARBONATE 28.9 MEQ/L (21.0-32.0)
[2016-05-16 07:23] LABS: POTASSIUM 4.8 MEQ/L (3.5-5.1)
[2016-05-16] MEDS: SODIUM CHLORIDE 0.9% FLUSH 10 ML FLUSH IV FLUSH SCH (08:52)
[2016-05-16] MEDS: CARVEDILOL 12.5 MG TAB PO SCH (08:53)
[2016-05-16] MEDS: MEGESTROL ACETATE SUSP 400 MG/10 ML CUP PO SCH (08:53)
[2016-05-16] MEDS: SEVELAMER CARBONATE 800 MG TAB PO SCH ×3 (08:53→17:39)
[2016-05-16] MEDS: DOCUSATE SODIUM 100 MG CAP PO SCH ×2 (08:53→21:00)
[2016-05-16] MEDS: amLODIPine BESYLATE 5 MG TAB PO SCH (08:53)
--- NOTE | 2016-05-16 09:45 | HHI.NPPN ---
Subjective General Problems: Anemia Renal Failure: Chronic, End Stage Renal Disease Interval History NPO for heart cath today. She had dialysis yesterday, however she cut treatment short as she was having pain at AVF site. Nurses had no difficulty cannulating, had good blood flow, and recannulated but she insisted on stopping early. Today she does not remember. (Lelo Chong) Review of Systems General Constitutional: Fatigue (Lelo Chong) Cardiovascular Cardiac: Chest Pain (Lelo Chong) Objective Data Data 05/15/16 05/16/16 19:00 07:00 Intake Total 420 ml 0 ml Output Total 1650 ml Balance -1230 ml 0 ml Intake Oral 420 ml 0 ml Output Urine Total 150 ml Hemodialysis 1500 ml # Voids 2 # Bowel Movements 0 0 Vital Signs Date Time Temp Pulse Resp B/P Pulse Ox O2 Delivery O2 Flow Rate FiO2 05/16/16 08:00 98.4 64 16 144/68 95 05/16/16 07:00 63 05/16/16 06:00 57 05/16/16 05:00 72 05/16/16 04:00 98.3 57 16 147/70 98 05/16/16 04:00 58 05/16/16 03:00 58 05/16/16 02:00 54 05/16/16 01:00 59 05/16/16 00:00 63 05/16/16 00:00 98.5 59 16 128/64 98 05/15/16 23:00 60 05/15/16 22:00 56 05/15/16 21:00 66 05/15/16 20:00 61 05/15/16 19:00 65 05/15/16 19:00 98.2 65 16 133/67 97 05/15/16 18:00 63 05/15/16 17:00 62 05/15/16 16:00 65 05/15/16 16:00 98.4 65 16 121/59 99 05/15/16 15:00 64 05/15/16 14:11 72 05/15/16 13:15 73 05/15/16 13:15 98.9 71 20 150/77 100 (Lelo Chong) -: 05/16/16 0602 05/16/16 0602 Physical Exam General Appearance: Well Developed, Well Nourished, No Acute Distress, Comfortable, Malnourished (Lelo Chong) Eyes Eye Exam: Pupils Equal (Lelo Chong) Throat Throat Exam: Oral Mucosa [place] & Moist (Lelo Chong) Neck Neck Exam: Neck Supple (Lelo Chong) Pulmonary Resp Exam: Clear Bilaterally, Breath Sounds Equal, No Distress (Lelo Chong) Cardiology CV Exam: Regular, Normal Sinus Rhythm, Good Perfusion, Dyspnea on Exertion ( Lelo Chong) Gastrointestinal/Abdomen GI Exam: Soft, Non-Tender, Bowel Sounds Present (Lelo Chong) Musculoskeletal MS Exam: Joints Intact, Normal Tone (Lelo Chong) Integumentary Skin Exam: Clear, Warm, Dry, Intact (Lelo Chong) Extremeties Extremities Exam: No Edema, Pedal Pulses Palpable Extremeties Remarks right AVF, + thrill/bruit (Lelo Chong) Neurologic Neuro Exam: Alert, Awake, Oriented, Speech Clear, Moving All Extremities ( Lelo Chong) Assessment/Plan Assessment Summary: Anemia of CKD, Hypertension, End Stage Renal Disease Problem List: (1) ESRD (end stage renal disease) Plan: HD MWF, had 2 hr HD yesterday, 1.5 L UF next dialysis tomorrow Volume status, electrolytes stable no acute renal concerns avoid IVF, gadolinium functioning AVF for dialysis (2) Cardiomyopathy Plan: Monitor. adjust UF with dialysis cardiology following - plan for cath today (3) Anemia Plan: on epogen with HD Hb improved (4) Atrial fibrillation Plan: Rate controlled follow with cardiology (Lelo Chong) Plan patient was seen and examined. To have cardiac cath. She can be discharged from renal standpoint. (Roland Miramontes MD) Lelo Chong May 16, 2016 09:45 Roland Miramontes MD May 16, 2016 11:36
--- NOTE | 2016-05-16 11:48 | EKG ---
Date Performed: 05/15/2016 Time Performed: 14:00:08 PTAGE: 85 years EKG: Sinus rhythm with PAC(s) Possible left anterior fascicular block Left ventricular hypertrophy Anterolateral T wav e changes may be due to hypertrophy and/or ischemia Abnormal ECG NO PREVIOUS TRACING DOCTOR: Dennys Rodriguez Interpretating Date/Time 05/16/2016 11:42:31
[2016-05-16] MEDS ORDERED: HEPARIN-NS/PF INJ 500 ML ONE ×2 (13:31→14:29)
[2016-05-16] MEDS ORDERED: ADENOSINE STRESS TEST INJ 90 MG/30 ML VIAL ONE (13:50)
[2016-05-16] MEDS ORDERED: HEPARIN SODIUM - IV 10,000 UNITS/10 ML VIAL ONE (13:50)
[2016-05-16] MEDS ORDERED: MIDAZOLAM HCL 2 MG/2 ML VIAL ONE (14:17)
[2016-05-16] MEDS ORDERED: TIROFIBAN INFUSION INJ 250 ML IV ONE (14:36)
[2016-05-16] MEDS ORDERED: CLOPIDOGREL 300 MG TAB ONE (14:36)
[2016-05-16] MEDS ORDERED: ASPIRIN 81 MG CHEW TAB ONE (14:36)
[2016-05-16] MEDS ORDERED: FLUMAZENIL 0.5 MG/5 ML VIAL ONE (14:51)
[2016-05-16] MEDS ORDERED: MISC INFORMATION XX ONE (15:00)
[2016-05-16] MEDS ORDERED: SODIUM CHLORIDE 0.9% FLUSH 10 ML FLUSH PRN (15:00)
[2016-05-16] MEDS ORDERED: TIROFIBAN INFUSION INJ 250 ML IV SCH (15:00)
[2016-05-16] MEDS ORDERED: CLOPIDOGREL 300 MG TAB PO ONE (15:00)
[2016-05-16] MEDS ORDERED: NITROGLYCERIN-DEXTROSE INJ 250 ML ONE (15:07)
--- NOTE | 2016-05-16 15:09 | HHI.PR ---
Subjective Remarks deferred entry - patient seen at 9:50 am denies cp/sob stable vital signs no cough no diarrhea npo for cath today Objective Vitals Vital Signs Date Time Temp Pulse Resp B/P Pulse Ox O2 Delivery O2 Flow Rate FiO2 05/16/16 12:00 89 05/16/16 11:00 63 05/16/16 11:00 98.6 63 16 149/87 98 05/16/16 10:00 60 05/16/16 09:00 66 05/16/16 08:00 98.4 64 16 144/68 95 05/16/16 08:00 60 05/16/16 07:00 63 05/16/16 06:00 57 05/16/16 05:00 72 05/16/16 04:00 98.3 57 16 147/70 98 05/16/16 04:00 58 05/16/16 03:00 58 05/16/16 02:00 54 05/16/16 01:00 59 05/16/16 00:00 63 05/16/16 00:00 98.5 59 16 128/64 98 05/15/16 23:00 60 05/15/16 22:00 56 05/15/16 21:00 66 05/15/16 20:00 61 05/15/16 19:00 65 05/15/16 19:00 98.2 65 16 133/67 97 05/15/16 18:00 63 05/15/16 17:00 62 05/15/16 16:00 65 05/15/16 16:00 98.4 65 16 121/59 99 I/O 05/15/16 05/15/16 05/15/16 05/16/16 05/16/16 05/16/16 07:00 15:00 23:00 07:00 15:00 23:00 Intake Total 480 ml 420 ml 0 ml Output Total 0 ml 1500 ml 150 ml Balance 480 ml -1500 ml 270 ml 0 ml Intake Oral 480 ml 420 ml 0 ml Output Urine Total 0 ml 150 ml Hemodialysis 1500 ml # Voids 2 # Bowel Movements 0 0 Result Diagram: 05/16/16 0602 05/16/16 0602 Imaging Last Impressions Aorta CTA 05/10/16 0000 Signed Impressions: Service Date/Time: Tuesday, May 10, 2016 15:13 - CONCLUSION: 1. There is no evidence of aortic dissection. The widening of the mediastinum seen on the chest x-ray appears to represent a combination of pleural fluid and atelectatic lung along the descending thoracic aorta. 2. There are COPD changes within the pulmonary parenchyma. 3. There are small bilateral effusions. 4. The abdominal aorta and iliac vessels are intact. Yehuda Hanna MD Chest X-Ray 05/09/16 [id number] Signed Impressions: Service Date/Time: Monday, May 09, 2016 14:58 - CONCLUSION: 1. Possible superior mediastinal mass versus aneurysm. The superior mediastinum appears somewhat widened. 2. COPD changes. 3. Cardiomegaly. Yehuda Hanna MD Objective Remarks GENERAL:mild distress due to chest pain, AAOx3, no respiratory distress. SKIN: Warm and dry. HEAD: Atraumatic. Normocephalic. EYES: Pupils equal and round. No scleral icterus. No injection or drainage. ENT: No nasal bleeding or discharge. Mucous membranes pink and moist. NECK: Trachea midline. No JVD. CARDIOVASCULAR: Regular rate and rhythm. systolic II/ murmur best hear in the 2nd left parasternal border. RESPIRATORY: No accessory muscle use. Clear to auscultation. Breath sounds equal bilaterally. GASTROINTESTINAL: Abdomen soft, non-tender, nondistended. Hepatic and splenic margins not palpable. MUSCULOSKELETAL: Extremities without clubbing, cyanosis, or edema. No obvious deformities. NEUROLOGICAL: Awake and alert. No obvious cranial nerve deficits. Motor grossly within normal limits. Five out of 5 muscle strength in the arms and legs. Normal speech. PSYCHIATRIC: Appropriate mood and affect; insight and judgment normal. Medications and IVs Current Medications Medications (Trade) Dose Ordered Sig/Thierry Route Start Time Stop Time Status Last Admin (Xanax) 0.25 mg Q8H PRN PO 05/09/16 17:15 05/13/16 10:28 (Coreg) 12.5 mg Q12HR PO 05/09/16 21:00 05/16/16 08:53 (Colace) 100 mg BID PO 05/09/16 21:00 05/16/16 08:53 (Renvela) 800 mg TID PO 05/09/16 18:00 05/16/16 08:53 (Xalatan 0.005% Opt Soln) 1 drop HS PRN EACH EYE 05/09/16 17:30 (Tylenol) 650 mg Q4H PRN PO 05/09/16 17:30 05/14/16 01:11 (Zofran Inj) 4 mg Q6H PRN IVP 05/09/16 17:30 (Dulcolax Supp) 10 mg DAILY PRN RECTAL 05/09/16 17:30 (Ambien) 5 mg HS PRN PO 05/09/16 17:30 05/15/16 22:00 (Narcan Inj) 0.4 mg UNSCH PRN IV 05/09/16 17:30 (Megace Liq) 800 mg DAILY PO 05/10/16 09:00 05/15/16 13:37 (Norvasc) 5 mg DAILY PO 05/14/16 09:00 05/16/16 08:53 (Ultram) 50 mg Q12H PRN PO 05/14/16 10:30 05/15/16 13:37 (NS Flush) 2 ml UNSCH PRN .XX 05/16/16 15:00 (NS Flush) 2 ml BID .XX 05/16/16 21:00 (Aspirin Chew) 162 mg DAILY PO 05/17/16 09:00 Clopidogrel Bisulfate 75 mg 75 mg DAILY PO 05/17/16 09:00 (Aggrastat Infusion Inj) 250 ml @ 10.908 mls/ hr [id number] IV 05/16/16 15:00 05/17/16 08:59 Miscellaneous Information 1 ONCE ONCE XX 05/16/16 15:00 05/16/16 15:01 UNV Urinary Catheter: No Vascular Central Line Catheter: No A/P Problem List: (1) Unstable angina ICD Code: I20.0 Status: Acute (2) Paroxysmal atrial fibrillation ICD Code: I48.0 Status: Acute (3) Mediastinal widening ICD Code: R93.8 Status: Acute (4) COPD (chronic obstructive pulmonary disease) ICD Code: J44.9 Status: Acute (5) ESRD (end stage renal disease) ICD Code: N18.6 Status: Acute (6) Severe anemia ICD Code: D64.9 Status: Acute (7) Hypertension ICD Code: I10 Status: Acute (8) Hyponatremia ICD Code: E87.1 Status: Acute Assessment and Plan (1) Unstable angina Plan: No further chest pain. Cardiology consulted. Cardiology recommends the patient continues to have chest pain despite of stable hemoglobin and a stable blood pressure. Possible left heart catheterization with PCI to lad and/or rca. Continue to monitor serial EKGs. Continue to monitor serial cardiac enzymes. Continue aspirin, Plavix, beta yonatan. Continue nitroglycerin sublingual. Will add Tramadol for chest pain - patient states she had it many years ago and does not have any allergy to it. fu cardiology recommendations. For cardiac cath today. (2) Paroxysmal atrial fibrillation Plan: On Eliquis. Continue carvedilol for rate control. Paroxysmal A. fib is rate controlled. (3) Mediastinal widening Plan: Negative CTA. (4) COPD (chronic obstructive pulmonary disease) Plan: Seems stable. Not on any inhalers. (5) ESRD (end stage renal disease) Plan: Nephrology following. Hemodialysis as per nephrology schedule on Mondays , Sunday and Sunday. Patient has been cleared by nephrology for DC. (6) Severe anemia Plan: Patient initially admitted with hemoglobin of 6.8. Status post transfusion of 2 units of packed blood cells. Continue to monitor hemoglobin. Ocult blood in feces checked and negative. Iron studies consistent with anemia of chronic disease with marrow of 24, TIBC 116, percent saturation 11.1 and 935. hemoglobin stable - 10.8 (7) Hypertension Plan: Bp somewhat on lower side. Amlodipine dose decreased to 5 mg daily. Bp now better. (8) Hyponatremia Plan: mild and stable at 134. Continue to monitor BMP. Management as per nephrology. GI prophylaxis: Continue PPI DVT prophylaxis: SCDs, on eliquis. Discharge Planning Continue to monitor in the cardiac floor. Once ready DC [facility] with hospice Problem Qualifiers (1) COPD (chronic obstructive pulmonary disease): (2) Hypertension: Qualified Code: I10 - Essential hypertension David Giron MD May 16, 2016 15:08
[2016-05-16] MEDS ORDERED: IOHEXOL 350 MG/ML 100 ML BTL (for Cath Lab) OTHER ONE (15:30)
[2016-05-16] MEDS ORDERED: PROPOFOL 500 MG/50 ML INJ 50 ML ONE (15:43)
--- NOTE | 2016-05-16 20:23 | PD.CONS ---
[facility] Service Critical Care Medicine Consult Requested By Dr. Valentin Reason for Consult PEA Arrest Primary Care Physician Ashlyn Mao MD History of Present Illness This is an 85yF with ESRD, COPD, CHF history who presented to the hospital with hyperglycemia and NSTEMI. She was taken to the labor representative today for revascularization. She had a BMS placed to the distal LAD with small unrevascularizable diag vessels. She received versed 1mg iv and fentanyl 25mcg iv. At the conclusion of the case, she became unresponsive, hypoxic, and then sustained a PEA arrest requiring ACLS. Anesthesia came and intubated the patient. I was called by Dr. Valentin after ROSC was obtained. He states he felt that this was a respiratory arrest secondary to sedation. I immediately went to evalute the patient. She was still in the labor representative. she was awake, non -focal, following commands, not on sedation. I had a discussion with Dr. Valentin. given that it was a very tight LAD lesion and difficult to PCI, we agreed to transfer the patient to CVICU and obtain STAT TTE to rule out tamponade or coronary rupture as a cause for her PEA arrest. This was done at bedside and was negative for acute life-threatening disease. At this point, because the patient met criteria, she was extubated to nasal cannula. Her arterial sheath was pulled. Critical Care medicine is consulted to evaluate and manage her post-cardiac arrest care. 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 Reported Medications Plavix (Clopidogrel Bisulfate) 75 Mg Tab 75 Mg PO DAILY Furosemide 40 Mg Tab 40 Mg PO BID PRN Megestrol Liq (Megestrol Acetate) 40 Mg/Ml Susp 800 Mg PO DAILY Nephro-Anne (B-Complex W/ C & Folic Acid) 1 Tab 1 Tab PO DAILY Sensipar (Cinacalcet) 30 Mg Tab 30 Mg PO DAILY Xanax (Alprazolam) 0.25 Mg Tab 0.25 Mg PO Q8H PRN Renvela (Sevelamer Carbonate) 800 Mg Tab 800 Mg PO TID Carvedilol 12.5 Mg Tab 12.5 Mg PO Q12HR Thera-M (Multiple Vitamins W/ Minerals) 1 Tab 1 Tab PO DAILY Tylenol (Acetaminophen) 325 Mg Cap 650 Mg PO Q4HR PRN Docusate Sodium 100 Mg Cap 100 Mg PO BID Eliquis (Apixaban) 2.5 Mg Tab 2.5 Mg PO BID Aspirin 81 Mg Tabdr 81 Mg PO DAILY Travatan Z Opth Drops (Travoprost) 0.004 % Soln 1 Drop EACH EYE HS PRN Viibryd (Vilazodone) 40 Mg Tab 40 Mg PO DAILY Active Ordered Medications See MAR Family History unobtainable secondary to the clinical condition of the patient. Social History Lives in an [facility] No tobacco, no ETOH. 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 [employer] Physical Exam Vital Signs Vital Signs Date Time Temp Pulse Resp B/P Pulse Ox O2 Delivery O2 Flow Rate FiO2 05/16/16 16:00 99 Nasal Cannula 3 05/16/16 15:45 100 100 05/16/16 15:45 80 05/16/16 15:45 97.6 80 24 151/57 96 05/16/16 14:55 100 100 05/16/16 12:00 89 05/16/16 11:00 63 05/16/16 11:00 98.6 63 16 149/87 98 05/16/16 10:00 60 05/16/16 09:00 66 05/16/16 08:00 98.4 64 16 144/68 95 05/16/16 08:00 60 05/16/16 07:00 63 05/16/16 06:00 57 05/16/16 05:00 72 05/16/16 04:00 98.3 57 16 147/70 98 05/16/16 04:00 58 05/16/16 03:00 58 05/16/16 02:00 54 05/16/16 01:00 59 05/16/16 00:00 63 05/16/16 00:00 98.5 59 16 128/64 98 05/15/16 23:00 60 05/15/16 22:00 56 05/15/16 21:00 66 Physical Exam on my evaluation initially, this is an elderly female who is lying on the labor representative table, RASS 0, awake, following commands, in moderate distress due to being intubated and recent chest compressions. she has good distal pulses. right groin with arterial and venous sheaths in place, no hematoma. follows commands in all 4 extremities, STEPHEN 5/5 in all distributions. no focal deficits. Laboratory Laboratory Tests Test 05/15/16 05/15/16 05/16/16 05/16/16 20:20 21:47 06:02 17:00 Troponin I 0.04 0.04 White Blood Count 8.0 Red Blood Count 3.47 Hemoglobin 10.8 Hematocrit 32.7 Mean Corpuscular Volume 94.2 Mean Corpuscular Hemoglobin 31.2 Mean Corpuscular Hemoglobin 33.1 Concent Red Cell Distribution Width 17.0 Platelet Count 276 Mean Platelet Volume 7.7 Hematology Comments Sodium Level 134 Potassium Level 4.8 Chloride Level 95 Carbon Dioxide Level 28.9 Anion Gap 10 Blood Urea Nitrogen 34 Creatinine 4.88 Estimat Glomerular Filtration 10 Rate Random Glucose 75 Calcium Level 9.4 Blood Type O NEGATIVE Antibody Screen NEGATIVE Crossmatch Leukocyte-Reduced Red Blood Cells Blood Bank Comment Result Diagram: 05/16/16 0602 05/16/16 0602 Imaging Last Impressions Aorta CTA 05/10/16 0000 Signed Impressions: Service Date/Time: Tuesday, May 10, 2016 15:13 - CONCLUSION: 1. There is no evidence of aortic dissection. The widening of the mediastinum seen on the chest x-ray appears to represent a combination of pleural fluid and atelectatic lung along the descending thoracic aorta. 2. There are COPD changes within the pulmonary parenchyma. 3. There are small bilateral effusions. 4. The abdominal aorta and iliac vessels are intact. Yehuda Hanna MD Chest X-Ray 05/09/16 1456 Signed Impressions: Service Date/Time: Monday, May 09, 2016 14:58 - CONCLUSION: 1. Possible superior mediastinal mass versus aneurysm. The superior mediastinum appears somewhat widened. 2. COPD changes. 3. Cardiomegaly. Yehuda Hanna MD Assessment and Plan Assessment and Plan Assessment: 85yF with ESRD, DM, with NSTEMI now s/p PCI with BMS to LAD and andrade -procedural PEA arrest. Since the echo reveals no acute disease and reason for arrest, I agree with Dr. Valentin that this is likely secondary to a respiratory arrest from sedation. Thus, we successfully extubated the patient. She is neurologically intact. Agree with continued supportive care, maintenance of adequate coronary perfusion pressure, anticoagulation post PCI. She does have anemia secondary to chronic renal disease, and Dr. Valentin and I discussed the fact that she may need a higher hgb level given that she has probable ongoing microvascular coronary ischemia from small diag branches which were unrevascularized. However, given her ESRD and her LVEDP of 22 measured on [facility], we talked about the risks/benefits of packed red cell transfusion. At this point, we will treat her conservatively, but if she becomes more hypotensive or unstable, will consider using prbc transfusion to assist with management goals. Active Problems: NSTEMI s/p PEA Arrest Anemia secondary to ESRD Active coronary ischemia CHF, diastolic type Elevated LVEDP Plan: -- admit to CVICU. -- continue full anticoagulation -- may advance diet as tolerated after nursing bedside swallow eval. -- will consider transfusion if hypotensive or falling hgb -- remove arterial sheath -- leave venous sheath since she has poor peripheral iv access and recent PEA arrest. would consider removing venous sheath tomorrow. -- frequent neuro checks dispo: if she continues to remain back on pathway, could consider d/c from ICU tomorrow, but I agree with watching her in the ICU overnight. I have spent in excess of 50 minutes discontinuously in the care and management of this patient while she remained critically ill, post-cardiac arrest, in the evaluation of possible life-threatening etiologies such as tamponade and coronary artery rupture. This time includes time before successful extubation of the patient, and includes but is not limited to evaluation of the patient, review of the medical record, discussion with consultants, respiratory therapy, nursing. Code Status Full Code Ace Parker MD May 16, 2016 20:23
[2016-05-16] MEDS: SODIUM CHLORIDE 0.9% FLUSH 10 ML FLUSH SCH (21:00)
[2016-05-16 23:17] LABS: HEMATOCRIT 30.1 % (35.0-46.0)
[2016-05-16 23:42] LABS: REVIEW FLAG FINAL
[2016-05-17] VITALS (10 sets, daily range): BP systolic 118–157; BP diastolic 58–75; PULSE 63–80; RESP 13–26; TEMP 98–99.2; O2SAT 93–100
[2016-05-17] MEDS: CARVEDILOL 12.5 MG TAB PO SCH ×3 (00:15→20:22)
[2016-05-17] MEDS: RESP: ALBUTEROL 2.5 MG/IPRATROPIUM 0.5 MG NEB (SCH) NEB ×4 (03:26→20:48)
[2016-05-17] MEDS ORDERED: RESP: RACEPINEPHRINE 2.25% 0.5 ML NEB ONE (04:29)
[2016-05-17] MEDS ORDERED: RESP: RACEPINEPHRINE 2.25% 0.5 ML NEB NEB ONE (04:45)
[2016-05-17] MEDS ORDERED: GLUCAGON 1 MG/ML VIAL OTHER PRN (04:45)
[2016-05-17] MEDS ORDERED: DEXTROSE 50% IN WATER 50 ML VIAL(D50) IV PUSH PRN (04:45)
[2016-05-17 05:14] LABS: AUTOMATED NEUTROPHIL # 10.9 TH/MM3 (1.8-7.7); BASOPHIL # 0.1 TH/MM3 (0-0.2); BASOPHIL % 0.4 % (0.0-2.0); EOSINOPHIL # 0.2 TH/MM3 (0-0.4); EOSINOPHIL % 1.7 % (0.0-4.0); HEMATOCRIT 26.9 % (35.0-46.0); LYMPH % 5.9 % (9.0-44.0); LYMPHOCYTE # 0.7 TH/MM3 (1.0-4.8); MEAN CELL VOLUME 93.1 FL (80.0-100.0); MEAN CORPUSCULAR HEMOGLOBIN 31.9 PG (27.0-34.0); MEAN CORPUSCULAR HGB CONC 34.3 % (32.0-36.0); MONO % 6.1 % (0.0-8.0); NEUT % 85.9 % (16.0-70.0); RED BLOOD COUNT 2.89 MIL/MM3 (4.00-5.30); WHITE BLOOD COUNT 12.7 TH/MM3 (4.0-11.0)
[2016-05-17] MEDS: DEXAMETHASONE SOD PHOS 4 MG/ML VIAL IV PUSH SCH ×3 (05:33→22:13)
[2016-05-17] MEDS: INSULIN ASPART SUPPLEMENTAL SCALE SQ SCH ×4 (05:34→23:43)
[2016-05-17 05:45] LABS: HEMO FLAGS AUTO DIFF; POTASSIUM 5.3 MEQ/L (3.5-5.1)
[2016-05-17 05:48] LABS: PLATELET COUNT 5 TH/MM3 (150-450)
--- NOTE | 2016-05-17 06:04 | MA ---
cc: YESI JACKSON M.D. DATE: 05/16/2016 PROCEDURE 1. Left heart catheterization. 2. Left ventriculography. 3. Coronary angiography. 4. FFR of the mid LAD. 5. PCI with bare metal stent of the mid LAD. 6. FFR of the mid right coronary artery. INDICATION Unstable angina, Walker Cardiovascular Society Class IV angina. Coronary artery disease. End-stage renal failure on dialysis. Cardiomyopathy. 70% stenosis in the mid LAD. 60% stenosis in the mid right coronary artery. DETAILS OF PROCEDURE The patient was brought to the cardiac catheterization laboratory, prepped and draped in the usual sterile fashion. 10 cc of 1% lidocaine was used to locally anesthetize the right common femoral artery. A 6-Paraguayan sheath was placed in the right common femoral artery. A 4-[place]aguayan sheath was placed in the right femoral vein due to a lack of IV access peripherally. A 4-Paraguayan JR4 diagnostic catheter, 6-Paraguayan XB 3.0 guide and a 6-Paraguayan JR4 guide were used to perform left ventriculography, coronary artery, FFR and PCI as detailed above. FINDINGS LEFT VENTRICULOGRAPHY LV pressures 170/20-22. Ejection fraction 45%. CORONARY ANGIOGRAPHY The right coronary artery is dominant. It has mild diffuse disease in the proximal segment up to 10-20% angiographically. At the RV branch which is small, probably a 1 mm vessel, there is a 50-60% stenosis. The left main coronary artery has no significant disease angiographically. The LAD has a proximal 40-50% stenosis. The first diagonal artery is a medium size vessel with a stent in the proximal segment that is widely patent. The ostium has a 30% stenosis. There is a stent in the mid to distal LAD which is widely patent. Just proximal to this there is a 60-70% stenosis at a bifurcation with a small diagonal vessel which is probably a 1 mm diameter vessel which itself has an ostial 90% stenosis. The LAD is large and transapical. The left circumflex vessel has mild disease in the proximal segment up to 20-30% angiographically. The first obtuse marginal vessel has a mid 60% stenosis. PERCUTANEOUS CORONARY INTERVENTION The patient was given 70 units/kg of heparin. The IV was subsequently found not to be functioning. The first ACT was 133. Gave an additional 2000 units of heparin, second ACT was 210. Then gave an additional 1000 units of heparin with a final ACT of 273. A 6-Paraguayan XB 3.0 guide and 0.014 PressureWire was placed into the proximal LAD. The introducer was removed. The guide catheter was thoroughly flushed with 20 cc of normal saline. The PressureWire was then used to cross the mid LAD lesion. IFR was 0.9. The patient was infused with 140 mcg/kg/minute of adenosine and within 50 seconds the FFR dropped to 0.80. Adenosine was discontinued. I did attempt to wire the small diagonal vessel in order to pre-dilate prior to stenting across it, but due to vessel tortuosity I was not able to get the wire tip into the diagonal vessel. I did feel the risk/benefit ratio favored stenting of the mid LAD with the risk of failing the diagonal and causing a small infarct due to the multiple admissions for severe resting Walker Cardiovascular Society class IV angina and recurrent admissions. I did explain this to the patient and she understood and agreed to proceed. I placed a 3.0 x 9 Integrity stent at the lesion site deployed to 9 atmospheres. There was significant waist in the distal segment of the stent. I went up to 16 atmospheres, again there was significant waist. At about 5-10 seconds of 16 atmospheres of pressure the distal segment opened up completely. The stenosis went from 70% to 0% with SOLO-III flow. Flow was SOLO II-III in the diagonal vessel post stenting. Then removed the PressureWire and XB catheter, went up with a JR4 6-Paraguayan guide, placed a 0.014 PressureWire into the proximal right coronary artery, removed the introducer, thoroughly flushed the guide catheter with normal saline, equalized the pressures, crossed the proximal to mid right coronary lesion, infused 140 mcg/kg/minute of adenosine for three minutes. Maximal FFR was 0.95. CONCLUSIONS 1. Unstable angina, Walker Cardiovascular Society class IV angina, culprit 70% mid-LAD lesion as detailed above with FFR 0.80 and an IFR of 0.89. 2. Successful direct PCI with bare metal stent of the mid LAD from 70% to 0% with SOLO-III flow. 3. Partial jailing of the small diagonal vessel with SOLO II-III flow. The patient was having chest pain post procedure suspect due to slow flow into the diagonal vessel. 4. FFR of 0.95 in the mid right coronary artery. 5. 50% proximal right coronary artery stenosis. 6. 50-60% obtuse marginal vessel stenosis. 7. Mild LV systolic dysfunction, EF 45%. RECOMMENDATIONS Recommend Aggrastat drip per protocol, aspirin 162 chewable, Plavix 600 mg p.o. load then 75 mg daily. Dual-antiplatelet therapy for 12-15 months if the patient tolerates this from an anemia standpoint. MD EFRA Tejeda/BT /2:46 PM /5:40 AM
[2016-05-17 06:11] LABS: CKMB 36.9 NG/ML (0.5-3.6)
[2016-05-17 06:27] LABS: ACANTHOCYTES OCC (NORMAL); PLATELET ESTIMATE SMEAR RARE (NORMAL); PLATELET MORPHOLOGY NORMAL (NORMAL); SCAN/DIFF AUTO DIFF CONFIRMED
--- NOTE | 2016-05-17 07:03 | HHI.CCPN ---
Subjective Remarks/Hospital Course This is an 85yF with ESRD, COPD, CHF history who presented to the hospital with hyperglycemia and NSTEMI. She was taken to the farm laborer today for revascularization. She had a BMS placed to the distal LAD with small unrevascularizable diag vessels. She received versed 1mg iv and fentanyl 25mcg iv. At the conclusion of the case, she became unresponsive, hypoxic, and then sustained a PEA arrest requiring ACLS. Anesthesia came and intubated the patient. I was called by Dr. Valentin after ROSC was obtained. He states he felt that this was a respiratory arrest secondary to sedation. I immediately went to evalute the patient. She was still in the farm laborer. she was awake, non -focal, following commands, not on sedation. I had a discussion with Dr. Valentin. given that it was a very tight LAD lesion and difficult to PCI, we agreed to transfer the patient to CVICU and obtain STAT TTE to rule out tamponade or coronary rupture as a cause for her PEA arrest. This was done at bedside and was negative for acute life-threatening disease. At this point, because the patient met criteria, she was extubated to nasal cannula. Her arterial sheath was pulled. Critical Care medicine is consulted to evaluate and manage her post-cardiac arrest care. SUBJ 05/17: Patient extubated yesterday. Overnight had intermittent stridor placed on Decadron and when necessary racemic epinephrine. Good response to racemic epinephrine. On my exam there was no stridor patient is alert oriented. CBC showed platelet count 5000. Patient is on Aggrastat. Doubt accuracy of the platelet count-it was 276,000 yesterday. Stat repeat labs sent Objective Vital Signs Date Time Temp Pulse Resp B/P Pulse Ox O2 Delivery O2 Flow Rate FiO2 05/17/16 00:00 98.0 63 18 157/75 99 05/17/16 00:00 Nasal Cannula 3.00 05/16/16 15:45 100 Intake and Output 05/16/16 05/16/16 05/17/16 08:00 16:00 00:00 Intake Total 0 ml 1890 ml Balance 0 ml 1890 ml Result Diagram: 05/17/16 0445 05/17/16 0445 Imaging Last Impressions Aorta CTA 05/10/16 0000 Signed Impressions: Service Date/Time: Tuesday, May 10, 2016 15:13 - CONCLUSION: 1. There is no evidence of aortic dissection. The widening of the mediastinum seen on the chest x-ray appears to represent a combination of pleural fluid and atelectatic lung along the descending thoracic aorta. 2. There are COPD changes within the pulmonary parenchyma. 3. There are small bilateral effusions. 4. The abdominal aorta and iliac vessels are intact. Yehuda Hanna MD Chest X-Ray 05/09/16 0917 Signed Impressions: Service Date/Time: Monday, May 09, 2016 14:58 - CONCLUSION: 1. Possible superior mediastinal mass versus aneurysm. The superior mediastinum appears somewhat widened. 2. COPD changes. 3. Cardiomegaly. Yehuda Hanna MD Objective Remarks GENERAL: Elderly female lying comfortably in bed SKIN: Warm and dry. HEAD: Atraumatic. Normocephalic. EYES: Pupils equal and round. No scleral icterus. No injection or drainage. ENT: No nasal bleeding or discharge. Mucous membranes pink and moist. NECK: Trachea midline. No JVD. Very mild inspiratory wheezes CARDIOVASCULAR: Regular rate and rhythm. systolic murmur best heard in the apex RESPIRATORY: No accessory muscle use. Clear to auscultation. Breath sounds equal bilaterally. GASTROINTESTINAL: Abdomen soft, non-tender, nondistended. Hepatic and splenic margins not palpable. MUSCULOSKELETAL: Extremities without clubbing, cyanosis, or edema. No obvious deformities. NEUROLOGICAL: Awake and alert. Motor grossly within normal limits. Five out of 5 muscle strength in the arms and legs. Normal speech. A/P Assessment and Plan Assessment: 85yF with ESRD, DM, with NSTEMI now s/p PCI with BMS to LAD and andrade -procedural PEA arrest. Since the echo reveals no acute disease and reason for arrest, I agree with Dr. Valentin that this is likely secondary to a respiratory arrest from sedation. Successfully extubated the patient 05/16. She is neurologically intact. Agree with continued supportive care, maintenance of adequate coronary perfusion pressure, anticoagulation post PCI. She does have anemia secondary to chronic renal disease, and Dr. Valentin and I discussed the fact that she may need a higher hgb level given that she has probable ongoing microvascular coronary ischemia from small diag branches which were unrevascularized. However, given her ESRD and her LVEDP of 22 measured on [facility], we talked about the risks/benefits of packed red cell transfusion. At this point , we will treat her conservatively, but if she becomes more hypotensive or unstable, will consider using prbc transfusion to assist with management goals. Active Problems: s/p PEA Arrest NSTEMI Acute thrombocytopenia from 276,000 to 5000 ?Lab error Post extubation stridor Anemia secondary to ESRD Active coronary ischemia CHF, diastolic type Elevated LVEDP Plan: --Continue CVICU care --Currently receiving Aggrastat, scheduled to be started on Plavix and aspirin. HOLD ALL anti- platelet drugs until CBC back as the platelet count is reported as 5000 --Further antiplatelet therapy recommendation can be given orally after platelet count is back --Continue Decadron and when necessary racemic epinephrine for post extubation stridor --May advance diet as tolerated after nursing bedside swallow eval. --will consider transfusion if hypotensive or falling hgb --s/p removal of arterial sheath --Leave venous sheath since she has poor peripheral iv access and recent PEA arrest. --Frequent neuro checks --Nephrology Dr. Miramontes following for HD Dispo: Due to post extubation stridor, continue ICU care for another 24 hours. If uneventful for next 24 hours, [facility] [place] will sign off Level 3 Nallely Lubin MD May 17, 2016 07:03
[2016-05-17 07:14] LABS: AUTOMATED NEUTROPHIL # 10.8 TH/MM3 (1.8-7.7); BASOPHIL % 0.3 % (0.0-2.0); EOSINOPHIL # 0.2 TH/MM3 (0-0.4); EOSINOPHIL % 1.9 % (0.0-4.0); HEMATOCRIT 27.7 % (35.0-46.0); LYMPH % 4.5 % (9.0-44.0); LYMPHOCYTE # 0.5 TH/MM3 (1.0-4.8); MEAN CELL VOLUME 93.9 FL (80.0-100.0); MEAN CORPUSCULAR HEMOGLOBIN 31.5 PG (27.0-34.0); MEAN CORPUSCULAR HGB CONC 33.5 % (32.0-36.0); MONO % 2.3 % (0.0-8.0); RED BLOOD COUNT 2.95 MIL/MM3 (4.00-5.30); RED CELL DISTRIBUTION WIDTH 16.5 % (11.6-17.2); WHITE BLOOD COUNT 11.9 TH/MM3 (4.0-11.0)
[2016-05-17 07:32] LABS: HEMO FLAGS AUTO DIFF
[2016-05-17 07:36] LABS: PLATELET COUNT 8 TH/MM3 (150-450)
--- NOTE | 2016-05-17 07:53 | RADRPT ---
EXAM DATE/TIME: 05/17/2016 07:09 [place] COMPARISON: CTA THORACIC ABDOMINAL AORTA W 3D RECON, May 10, 2016, 15:13. CHEST SINGLE AP, May 09, 2016, 14: 58. INDICATIONS : Respiratory disease. Pt. had shortness of breath yesterday. MEDICAL HISTORY : Cardiovascular disease. Hypertension. Renal failure, chronic. SURGICAL HISTORY : Appendectomy. ENCOUNTER: Subsequent ACUITY: 1 week PAIN SCORE: 5/10 LOCATION: Bilateral chest Mid. FINDINGS: Portable AP view of the chest demonstrates a normal-sized cardiac silhouette. Multiple lines overlie the patient. There is retrocardiac opacity secondary to hiatal hernia and associated compressive atel ectasis in the left lower lobe. There is slight blunting of costophrenic sulci bilaterally. No pneumo thorax is identified. The bones and soft tissues demonstrate no acute finding. CONCLUSION: 1. Suspected trace bilateral pleural effusions. 2. Large hiatal hernia with associated compressive atelectasis in the left lower lobe. This is a stab le finding. Tristian Hdz MD on May 17, 2016 at 7:49 Board Certified Radiologist. This report was verified electronically.
[2016-05-17 08:28] LABS: OVALOCYTES 1+ (NORMAL); PLATELET ESTIMATE SMEAR RARE (NORMAL); PLATELET MORPHOLOGY NORMAL (NORMAL); SCAN/DIFF AUTO DIFF CONFIRMED
[2016-05-17] MEDS ORDERED: GELATIN 12 MM/7 MM FOAM ONE (08:59)
[2016-05-17] MEDS ORDERED: CLOPIDOGREL 75 MG TAB PO SCH (09:00)
[2016-05-17] MEDS ORDERED: ASPIRIN 81 MG CHEW TAB PO SCH (09:00)
[2016-05-17] MEDS: SEVELAMER CARBONATE 800 MG TAB PO SCH ×3 (09:00→16:29)
--- NOTE | 2016-05-17 09:06 | ECHLIM ---
Study Study Date:05/16/2016 STUDY CONCLUSIONS SUMMARY - Left ventricle: The cavity size was normal. Wall thickness was increased in a pattern of mild LVH. Systolic function was mildly to moderately reduced. The estimated ejection fraction was 40%, in the range of 40% to 45%. Diffuse hypokinesis. - Mitral valve: Mildly calcified annulus. - Left atrium: The atrium was mildly dilated. - Tricuspid valve: Mild regurgitation. - Pericardium, extracardiac: A trivial pericardial effusion was identified. If LV function is below 40, please consider prescribing an ACEI or ARB or document rationale for non-use. PROCEDURE DATA Procedure: Transthoracic echocardiography. Image quality was good. Scanning was performed from the parasternal, apical, and subcostal acoustic windows. Study completion: The patient tolerated the procedure well. Transthoracic echocardiography. M-mode, limited 2D, limited spectral Doppler, and color Doppler. CARDIAC ANATOMY LEFT VENTRICLE: The cavity size was normal. Wall thickness was increased in a pattern of mild LVH. Systolic function was mildly to moderately reduced. The estimated ejection fraction was 40%, in the range of 40% to 45%. Diffuse hypokinesis. AORTIC VALVE: Trileaflet; normal thickness, moderately calcified leaflets. Doppler not performed. At least mild aortic stenosis expected. AORTA: Aortic root: The aortic root was normal in size. MITRAL VALVE: Mildly calcified annulus. Doppler: Transvalvular velocity was within the normal range. There was no evidence for stenosis. No regurgitation. LEFT ATRIUM: The atrium was mildly dilated. RIGHT VENTRICLE: The cavity size was normal. Wall thickness was normal. PULMONIC VALVE: Doppler: Transvalvular velocity was within the normal range. There was no evidence for stenosis. No regurgitation. TRICUSPID VALVE: Structurally normal valve. Doppler: Transvalvular velocity was within the normal range. Mild regurgitation. PULMONARY ARTERY: The main pulmonary artery was normal-sized. Systolic pressure was within the normal range. RIGHT ATRIUM: The atrium was normal in size. PERICARDIUM: A trivial pericardial effusion was identified. SYSTEMIC VEINS: Inferior vena cava: The vessel was normal in size. DOPPLER MEASUREMENTS ADULT NORMAL Tricuspid valve Regurgitant peak velocity 286 cm/s Peak RV-RA gradient, S 33 mm Hg Maximal regurgitant velocity 286 cm/s LEGEND: Mean values are shown as u=mean value. Asterisk (*) treadwell values outside specified normal range. Prepared and signed by Sylvain Olmos [id number]
[2016-05-17 09:18] LABS: MAGNESIUM 2.4 MG/DL (1.5-2.5)
--- NOTE | 2016-05-17 10:29 | EKG ---
Date Performed: 05/17/2016 Time Performed: 04:30:44 PTAGE: 85 years EKG: Irregular ectopic atrial rhythm with PVC(s) baseline artifact Left axis deviation IV conduc tion defect Possible anterior infarct - age undetermined Inferior infarct - age undetermined Lateral ST-T changes may be due to myocardial ischemia Abnormal ECG NO PREVIOUS TRACING DOCTOR: Jurgen Jose Interpretating Date/Time 05/17/2016 10:27:15
[2016-05-17] MEDS: amLODIPine BESYLATE 5 MG TAB PO SCH (10:40)
[2016-05-17] MEDS: DOCUSATE SODIUM 100 MG CAP PO SCH ×2 (10:40→20:22)
[2016-05-17] MEDS: SODIUM CHLORIDE 0.9% FLUSH 10 ML FLUSH SCH ×2 (10:40→20:22)
[2016-05-17] MEDS: MEGESTROL ACETATE SUSP 400 MG/10 ML CUP PO SCH (10:41)
--- NOTE | 2016-05-17 11:10 | HHI.NPPN ---
Subjective General Problems: Anemia Renal Failure: Chronic, End Stage Renal Disease Interval History She had bare metal stent placed to LAD yesterday. Suffered PEA arrest after procedure, was intubated and resuscitated. She is seen during bedside dialysis. Has been extubated and now awake, no complaints. She has severe thrombocytopenia. (Lelo Chong) Review of Systems General Constitutional: Fatigue (Lelo Chong) Cardiovascular Cardiac: Chest Pain (Lelo Chong) Objective Data Data 05/16/16 05/17/16 19:00 07:00 Intake Total 1890 ml 815 ml Output Total 0 ml Balance 1890 ml 815 ml Intake Oral 0 ml 200 ml IV Total 1890 ml 365 ml Packed Cells 250 ml Output Urine Total 0 ml # Voids 0 # Bowel Movements 0 1 Vital Signs Date Time Temp Pulse Resp B/P Pulse Ox O2 Delivery O2 Flow Rate FiO2 05/17/16 09:02 100 Nasal Cannula 3.00 05/17/16 08:00 98 Nasal Cannula 3.00 05/17/16 07:00 63 05/17/16 07:00 98.6 63 17 152/58 98 05/17/16 04:00 65 22 137/60 93 05/17/16 04:00 64 05/17/16 04:00 93 Nasal Cannula 3.00 05/17/16 00:00 98.0 63 18 157/75 99 05/17/16 00:00 99 Nasal Cannula 3.00 05/17/16 00:00 63 05/16/16 20:31 99 Nasal Cannula 3.00 05/16/16 20:00 97 Nasal Cannula 3.00 05/16/16 20:00 97.8 70 18 115/64 97 05/16/16 20:00 70 05/16/16 16:00 99 Nasal Cannula 3 05/16/16 15:45 100 100 05/16/16 15:45 80 05/16/16 15:45 97.6 80 24 151/57 96 05/16/16 14:55 100 100 05/16/16 12:00 89 (Lelo Chong) -: 05/17/16 0700 05/17/16 0445 Imaging Last Impressions Chest X-Ray 05/17/16 0000 Signed Impressions: Service Date/Time: Tuesday, May 17, 2016 07:09 - CONCLUSION: 1. Suspected trace bilateral pleural effusions. 2. Large hiatal hernia with associated compressive atelectasis in the left lower lobe. This is a stable finding. Tristian Hdz MD Aorta CTA 05/10/16 0000 Signed Impressions: Service Date/Time: Tuesday, May 10, 2016 15:13 - CONCLUSION: 1. There is no evidence of aortic dissection. The widening of the mediastinum seen on the chest x-ray appears to represent a combination of pleural fluid and atelectatic lung along the descending thoracic aorta. 2. There are COPD changes within the pulmonary parenchyma. 3. There are small bilateral effusions. 4. The abdominal aorta and iliac vessels are intact. Yehuda Hanna MD (Lelo Chong B. INVENTORY MANAGEMENT SPECIALIST) Physical Exam General Appearance: Well Developed, Well Nourished, No Acute Distress, Comfortable, Malnourished (Lelo Chong B. INVENTORY MANAGEMENT SPECIALIST) Eyes Eye Exam: Pupils Equal (Lelo Chong B. INVENTORY MANAGEMENT SPECIALIST) Throat Throat Exam: Oral Mucosa Hemet & Moist (Lelo Chong B. INVENTORY MANAGEMENT SPECIALIST) Neck Neck Exam: Neck Supple (ArletteLelo B. INVENTORY MANAGEMENT SPECIALIST) Pulmonary Resp Exam: Clear Bilaterally, Breath Sounds Equal, No Distress (Lelo Chong B. INVENTORY MANAGEMENT SPECIALIST) Cardiology CV Exam: Regular, Normal Sinus Rhythm, Good Perfusion, Dyspnea on Exertion ( Harish Chongon B. INVENTORY MANAGEMENT SPECIALIST) Gastrointestinal/Abdomen GI Exam: Soft, Non-Tender, Bowel Sounds Present (Lelo Chong B. INVENTORY MANAGEMENT SPECIALIST) Musculoskeletal MS Exam: Joints Intact, Normal Tone (Lelo Chong B. INVENTORY MANAGEMENT SPECIALIST) Integumentary Skin Exam: Clear, Warm, Dry, Intact (ArletteLelo B. INVENTORY MANAGEMENT SPECIALIST) Extremeties Extremities Exam: No Edema, Pedal Pulses Palpable Extremeties Remarks right AVF, accessed during HD (Lelo Chong B. INVENTORY MANAGEMENT SPECIALIST) Neurologic Neuro Exam: Alert, Awake, Oriented, Speech Clear, Moving All Extremities ( Lelo Chong B. INVENTORY MANAGEMENT SPECIALIST) Assessment/Plan Discussed Condition With: Patient Assessment Summary: Anemia of CKD, CHF, Hypertension, End Stage Renal Disease Electrolyte Assessment: Hyperkalemia Problem List: (1) ESRD (end stage renal disease) Plan: HD MWF, seen during dialysis on a 2K, 400 BFR, goal 3L Volume status stable Hyperkalemic, dialyzed on a 2K bath, follow up labs tomorrow no acute renal concerns avoid IVF, gadolinium functioning AVF for dialysis she has existing outpatient HD arrangements, can be discharged when cleared by all consulting physicians (2) CAD (coronary artery disease) Plan: adjust UF with dialysis as tolerated/required cardiology following sp cath with stent to LAD, EF 45% (3) Anemia Plan: on epogen with HD Hb stable goal Hb >10 transfuse PRN (4) Atrial fibrillation Plan: Rate controlled follow with cardiology (5) Thrombocytopenia Plan: acute given Loading dose of Plavix, also ASA she was on Aggrastat gtt, it has been discontinued we will not use heparin with dialysis today serial CBCs, monitor for bleeding (Lelo Chong) Plan patient was seen and examined. She has been extubated. Severe thrombocytopenia is noted. Dialysis MWF. Underwent stent to LAD. (Roland Miramontes MD) Problem Qualifiers (1) CAD (coronary artery disease): Qualified Code: I25.10 - Coronary artery disease due to calcified coronary lesion Lelo Chong May 17, 2016 11:10 Roland Miramontes MD May 18, 2016 11:11
--- NOTE | 2016-05-17 11:22 | EKG ---
Date Performed: 05/16/2016 Time Performed: 15:01:32 PTAGE: 85 years EKG: Probable sinus tachycardia. Lead(s) unsuitable for analysis: V1 V6 Left axis deviation Infe rior infarct - age undetermined LVH with secondary repolarization abnormality Lateral ST-T changes ar e probably due to ventricular hypertrophy Abnormal ECG PREVIOUS TRACING : 05/15/2016 14.00 DOCTOR: Jurgen Jose Interpretating Date/Time 05/17/2016 11:19:55
[2016-05-17] MEDS ORDERED: SODIUM CHLOR 0.9% 250 ML INJ 250 ML IV ONE (12:15)
--- NOTE | 2016-05-17 12:58 | MB ---
cc: KEIRY JOSEPH M.D., SINOJ K. MD DATE OF CONSULTATION: 05/17/[address] Lubin REASON FOR CONSULTATION Consult for hematology to evaluate severe thrombocytopenia. HISTORY OF PRESENT ILLNESS The patient is an 85-year-old female with a history of end-stage renal disease, coronary artery disease, COPD, congestive heart failure, who presented to the hospital with a non-ST elevation myocardial infarction. She was taken to the [facility] lab [facility] yesterday and a metal stent was placed in the LAD. She, however, coded on the table and had a PEA arrest. She was resuscitated. During the procedure she was given Aggrastat and heparin. She had also been getting heparin with the dialysis. Yesterday her platelet count was normal. This morning the platelet count was found to be 5000. Repeat CBC showed a platelet count of 8000. The patient had some oozing around her cath site yesterday but that has stopped. She denies any bleeding. When I saw her she is alert and oriented x3. She denies any chest pain and denies significant shortness of breath. Denies any abdominal pain. Denies headache. Denies any visual changes. PAST MEDICAL HISTORY 1. End-stage renal disease on hemodialysis. 2. Coronary artery disease. 3. Anxiety. 4. Chronic anemia. 5. Chronic obstructive pulmonary disease. 6. CHF. 7. Depression. 8. Gastroesophageal reflux disease. 9. Migraine. 10.Obstructive sleep apnea. PAST SURGICAL HISTORY 1. Appendectomy. 2. Right upper extremity AV shunt placement. 3. Cardiac stent. 4. Kidney stent. 5. Left cataract extraction. 6. Nephrolithiasis, status post removal. 7. Hysterectomy. 8. Bilateral hip replacement. 9. Bilateral total knee arthroplasty. 10.Tonsillectomy. FAMILY HISTORY Noncontributory. SOCIAL HISTORY No tobacco or alcohol use. ALLERGIES 1. DILAUDID. 2. MORPHINE. MEDICATIONS Home medications include: 1. Plavix. 2. Lasix. 3. Megace. 4. Nephro-Anne. 5. Sensipar. 6. Xanax. 7. Renvela. 8. Carvedilol. 9. Tylenol. 10.Colace. 11.Eliquis. 12.Aspirin. 13.Travatan. REVIEW OF SYSTEMS CONSTITUTIONAL: Denies any fever, chills, night sweats or weight loss. EYES: Denies any blurry vision, double vision. ENT: Denies mouth sores and voice changes. CARDIOVASCULAR: As above. RESPIRATORY: Denies shortness of breath or cough. GI: Denies any nausea or vomiting. Denies abdominal pain. Denies melena or hematochezia. : As above. MUSCULOSKELETAL: No significant pain at this time. HEMATOLOGY: As above. ENDOCRINE: Negative. DERMATOLOGIC: Negative. PSYCHIATRIC: Negative. NEUROLOGIC: Negative. PHYSICAL EXAMINATION VITAL SIGNS: Temperature 98.5, blood pressure 149/69, pulse ox 98% on three liter nasal cannula. GENERAL: She is alert and oriented x3, in no acute distress. HEENT: Atraumatic, normocephalic. Pupils equal, round and reactive to light. Extraocular muscles intact. No scleral ictreus. Oropharynx with dry mucosa, no lesion. NECK: No thyromegaly. No palpable mass. LYMPHATIC: No palpable cervical, clavicular, axillary or inguinal lymph nodes. CARDIOVASCULAR: Regular, S1, S2. LUNGS: Clear to auscultation anteriorly. ABDOMEN: Soft, nontender. Could not palpate the liver or spleen. EXTREMITIES: No cyanosis. Trace ankle edema. No calf tenderness. The catheter site in the right groin dressing is dry. No active bleeding noted. LABORATORY DATA Laboratory data reviewed. ASSESSMENT 1. Severe thrombocytopenia which I think is due to the Aggrastat. Her platelet count was 276,000 yesterday. This morning the platelet count was found to be 5000 and a repeat CBC showed platelet count 8000. A stat hematology consult was requested. I reviewed the patient's peripheral smear which did not show any platelet clumping. The platelet morphology appeared normal and there was significantly decreased platelet count. No significant schistocytes noted. Her hemoglobin has been stable. She has mild leukocytosis, likely due to recent cardiac resuscitation. The severe thrombocytopenia is most consistent with drug-induced thrombocytopenia due to Aggrastat. I doubt that this is HIT. The HIT rapid assay test is still pending. Her Aggrastat, heparin and Plavix antiplatelet agents have all been discontinued. Given her severe thrombocytopenia with platelet count less than 10,000, will give her a unit of platelet transfusion. Will monitor her platelet count closely. She can restart antiplatelet agents after her platelet count starts trending up. 2. Anemia due to a chronic kidney disease, hemoglobin stable at 9.3. 3. Mild leukocytosis, likely leukemoid reaction. No clear evidence of infection. 4. End-stage renal disease, on hemodialysis. Recommend not to use heparin for dialysis. 5. Coronary artery disease, status post stent placement yesterday. Without the antiplatelet agents she has an increased risk of clotting the stent, but at this point she is not able to receive any antiplatelet agents due to severe thrombocytopenia. RECOMMENDATIONS 1. Agree with stopping the Aggrastat, heparin and all antiplatelet agents at this point. 2. Will give her one unit of platelet transfusion. 3. I have reviewed her peripheral smear. 4. Check a CBC after her platelet transfusion. 5. HIT antibody pending. 6. Discussed the case with Dr. Lubin. Thank you Dr. Lubin for asking me to see this patient. MD REGINA Tran/DONNA /12:19 PM /12:35 PM SY
[2016-05-17] MEDS ORDERED: NITROGLYCERIN 0.4 MG SL 25 TABS/BTL SL ONE (15:07)
[2016-05-17] MEDS ORDERED: NITROGLYCERIN-DEXTROSE INJ 250 ML ONE (15:40)
[2016-05-17 15:44] LABS: AUTOMATED NEUTROPHIL # 14.4 TH/MM3 (1.8-7.7); BASOPHIL % 0.1 % (0.0-2.0); EOSINOPHIL % 0.1 % (0.0-4.0); HEMATOCRIT 26.3 % (35.0-46.0); LYMPHOCYTE # 0.8 TH/MM3 (1.0-4.8); MEAN CELL VOLUME 92.9 FL (80.0-100.0); MEAN CORPUSCULAR HEMOGLOBIN 31.3 PG (27.0-34.0); MEAN CORPUSCULAR HGB CONC 33.7 % (32.0-36.0); MONO % 4.6 % (0.0-8.0); NEUT % 90.2 % (16.0-70.0); RED BLOOD COUNT 2.83 MIL/MM3 (4.00-5.30); RED CELL DISTRIBUTION WIDTH 16.6 % (11.6-17.2)
--- NOTE | 2016-05-17 15:45 | PD.CARD.PN ---
Subjective Subjective Remarks alert in nad, denies chest pain Objective Vital Signs / I&O Vital Signs Date Time Temp Pulse Resp B/P Pulse Ox O2 Delivery O2 Flow Rate FiO2 05/17/16 12:33 98 Nasal Cannula 3.00 05/17/16 11:10 98.5 64 17 149/65 98 05/17/16 11:10 64 05/17/16 09:02 100 Nasal Cannula 3.00 05/17/16 08:00 98 Nasal Cannula 3.00 05/17/16 07:00 63 05/17/16 07:00 98.6 63 17 152/58 98 05/17/16 04:00 65 22 137/60 93 05/17/16 04:00 64 05/17/16 04:00 93 Nasal Cannula 3.00 05/17/16 00:00 98.0 63 18 157/75 99 05/17/16 00:00 99 Nasal Cannula 3.00 05/17/16 00:00 63 05/16/16 20:31 99 Nasal Cannula 3.00 05/16/16 20:00 97 Nasal Cannula 3.00 05/16/16 20:00 97.8 70 18 115/64 97 05/16/16 20:00 70 05/16/16 16:00 99 Nasal Cannula 3 05/16/16 15:45 100 100 05/16/16 15:45 80 05/16/16 15:45 97.6 80 24 151/57 96 I/O 05/16/16 05/16/16 05/16/16 05/17/16 05/17/16 05/17/16 07:00 15:00 23:00 07:00 15:00 23:00 Intake Total 0 ml 1890 ml 815 ml Output Total 0 ml 2000 ml Balance 0 ml 1890 ml 815 ml -2000 ml Intake Oral 0 ml 0 ml 200 ml IV Total 1890 ml 365 ml Packed Cells 250 ml Output Urine Total 0 ml Hemodialysis 2000 ml # Voids 2 0 # Bowel Movements 0 0 1 Physical Exam GENERAL: SKIN: Warm and dry. HEAD: Normocephalic. EYES: No scleral icterus. No injection or drainage. NECK: Supple, trachea midline. No JVD or lymphadenopathy. CARDIOVASCULAR: Regular rate and rhythm without murmurs, gallops, or rubs. RESPIRATORY: Breath sounds equal bilaterally. No accessory muscle use. GASTROINTESTINAL: Abdomen soft, non-tender, nondistended. MUSCULOSKELETAL: No cyanosis, or edema. BACK: Nontender without obvious deformity. No CVA tenderness. Laboratory Laboratory Tests Test 05/16/16 05/16/16 05/17/16 05/17/16 17:00 22:55 04:45 07:00 Blood Type O NEGATIVE Antibody Screen NEGATIVE Crossmatch Leukocyte-Reduced Red Blood Cells Blood Bank Comment Hemoglobin 10.2 GM/DL 9.2 GM/DL 9.3 GM/DL Hematocrit 30.1 % 26.9 % 27.7 % White Blood Count 12.7 TH/MM3 11.9 TH/MM3 Red Blood Count 2.89 MIL/MM3 2.95 MIL/MM3 Mean Corpuscular Volume 93.1 FL 93.9 FL Mean Corpuscular Hemoglobin 31.9 PG 31.5 PG Mean Corpuscular Hemoglobin 34.3 % 33.5 % Concent Red Cell Distribution Width 16.0 % 16.5 % Platelet Count 5 TH/MM3 8 TH/MM3 Mean Platelet Volume 10.0 FL 9.3 FL Neutrophils (%) (Auto) 85.9 % 91.0 % Lymphocytes (%) (Auto) 5.9 % 4.5 % Monocytes (%) (Auto) 6.1 % 2.3 % Eosinophils (%) (Auto) 1.7 % 1.9 % Basophils (%) (Auto) 0.4 % 0.3 % Neutrophils # (Auto) 10.9 TH/MM3 10.8 TH/MM3 Lymphocytes # (Auto) 0.7 TH/MM3 0.5 TH/MM3 Monocytes # (Auto) 0.8 TH/MM3 0.3 TH/MM3 Eosinophils # (Auto) 0.2 TH/MM3 0.2 TH/MM3 Basophils # (Auto) 0.1 TH/MM3 0.0 TH/MM3 CBC Comment AUTO DIFF AUTO DIFF Differential Comment AUTO DIFF AUTO DIFF CONFIRMED CONFIRMED Platelet Estimate RARE RARE Platelet Morphology Comment NORMAL NORMAL Acanthocytes OCC Sodium Level 134 MEQ/L Potassium Level 5.3 MEQ/L Chloride Level 96 MEQ/L Carbon Dioxide Level 28.0 MEQ/L Anion Gap 10 MEQ/L Blood Urea Nitrogen 47 MG/DL Creatinine 5.41 MG/DL Estimat Glomerular Filtration 9 ML/MIN Rate Random Glucose 88 MG/DL Calcium Level 8.6 MG/DL Magnesium Level 2.4 MG/DL Total Creatine Kinase 363 U/L Creatine Kinase MB 36.9 NG/ML Creatine Kinase MB % 10.2 % Ovalocytes 1+ Test 05/17/16 12:23 Blood Bank Comment Assessment and Plan Problem List: (1) Atrial fibrillation, new onset (2) Aortic stenosis (3) Hypertension (4) Hyperlipidemia (5) Depression (6) CAD (coronary artery disease) (7) Chest pain (8) Cardiomyopathy Assessment and Plan 1.) CAD - s/p pci bms mid lad, small diagonal vessel jailed but patent, dapt held due to thrombocytopenia 2.) PAF - in nsr, assymptomatic, eliquis held d/t thrombocytopenia 3.) PEA - suspect d/t apnea from fentanyl and/or versed 4.) Angina - possible with jailed diagonal, ffr rca deferred pci d/t ffr=.95; patient is hospice, do not rec recurrent cath due to high risk d/t thrombocytopenia, pea from conscience sedation from fentanyl/versed and inability to access diagonal vessel d/t vessel tortuosity and 90 degreee angle off lad; rec palliative care consult, prn ntg Problem Qualifiers (1) Hypertension: Qualified Code: I10 - Essential hypertension (2) CAD (coronary artery disease): Qualified Code: I25.10 - Coronary artery disease due to calcified coronary lesion (3) Chest pain: Qualified Code: R07.2 - Precordial pain Zohaib Valentin MD May 17, 2016 15:45
[2016-05-17] MEDS ORDERED: NITROGLYCERIN/DEXTROSE 5% 250 ML for chest pain IV SCH (16:00)
[2016-05-17 16:01] LABS: HEMO FLAGS AUTO DIFF
[2016-05-17 16:04] LABS: PLATELET COUNT 19 TH/MM3 (150-450)
[2016-05-17] MEDS: NITROGLYCERIN 2% OINT 1 GM PACKET TOPICAL SCH ×2 (16:29→22:13)
[2016-05-17 16:30] LABS: ACANTHOCYTES OCC (NORMAL); PLATELET ESTIMATE SMEAR RARE (NORMAL); PLATELET MORPHOLOGY NORMAL (NORMAL); SCAN/DIFF AUTO DIFF CONFIRMED
[2016-05-17] MEDS: traMADol HCL 50 MG TAB PO PRN (23:43)
[2016-05-18] VITALS (14 sets, daily range): BP systolic 115–148; BP diastolic 57–92; PULSE 62–98; RESP 16–21; TEMP 97.8–98.6; O2SAT 94–100
[2016-05-18] MEDS: RESP: ALBUTEROL 2.5 MG/IPRATROPIUM 0.5 MG NEB (SCH) NEB ×4 (03:35→21:54)
[2016-05-18] MEDS: NITROGLYCERIN 2% OINT 1 GM PACKET TOPICAL SCH ×4 (05:27→21:10)
[2016-05-18] MEDS: INSULIN ASPART SUPPLEMENTAL SCALE SQ SCH ×3 (05:27→18:00)
[2016-05-18 05:43] LABS: AUTOMATED NEUTROPHIL # 7.5 TH/MM3 (1.8-7.7); BASOPHIL % 0.1 % (0.0-2.0); HEMATOCRIT 26.6 % (35.0-46.0); LYMPH % 8.4 % (9.0-44.0); LYMPHOCYTE # 0.7 TH/MM3 (1.0-4.8); MEAN CORPUSCULAR HEMOGLOBIN 30.4 PG (27.0-34.0); MEAN CORPUSCULAR HGB CONC 34.6 % (32.0-36.0); MONO % 3.6 % (0.0-8.0); NEUT % 87.9 % (16.0-70.0); PLATELET COUNT 30 TH/MM3 (150-450); RED BLOOD COUNT 3.02 MIL/MM3 (4.00-5.30); RED CELL DISTRIBUTION WIDTH 21.5 % (11.6-17.2); WHITE BLOOD COUNT 8.5 TH/MM3 (4.0-11.0)
[2016-05-18 06:16] LABS: ALT (GPT) 25 U/L (10-53); ANION GAP 9 MEQ/L (5-15); AST (GOT) 57 U/L (15-37); BICARBONATE 27.5 MEQ/L (21.0-32.0); BLOOD UREA NITROGEN 46 MG/DL (7-18); CHLORIDE 96 MEQ/L (98-107); GLOMERULAR FILTRATION RATE 10 ML/MIN (>89); POTASSIUM 4.9 MEQ/L (3.5-5.1); SODIUM (NA) 132 MEQ/L (136-145)
[2016-05-18 06:18] LABS: ALKALINE PHOSPHATASE 84 U/L (45-117); TOTAL BILIRUBIN ADULT 0.5 MG/DL (0.2-1.0)
[2016-05-18 06:19] LABS: HEMO FLAGS AUTO DIFF
[2016-05-18 07:38] LABS: PLATELET ESTIMATE SMEAR LOW (NORMAL); PLATELET MORPHOLOGY NORMAL (NORMAL)
[2016-05-18 07:39] LABS: SCAN/DIFF AUTO DIFF CONFIRMED
[2016-05-18] MEDS: NITROGLYCERIN 0.4 MG SL 25 TABS/BTL SL PRN ×2 (07:58→08:31)
--- NOTE | 2016-05-18 08:02 | PD.ONC.PN ---
Subjective Subjective Remarks No bleeding. No CP/SOB. Objective Data Date Time Temp Pulse Resp B/P Pulse Ox O2 Delivery O2 Flow Rate FiO2 05/18/16 06:00 81 05/18/16 04:00 80 05/18/16 04:00 98.5 80 16 122/61 96 05/18/16 04:00 100 Nasal Cannula 3.00 05/18/16 02:00 74 05/18/16 01:10 20 05/18/16 00:00 98.4 78 21 115/57 100 05/18/16 00:00 78 05/18/16 00:00 100 Nasal Cannula 3.00 05/18/16 00:00 100 Nasal Cannula 3.00 05/17/16 22:00 80 05/17/16 21:57 98.6 79 13 118/59 100 05/17/16 20:51 98 Nasal Cannula 2.00 05/17/16 20:00 79 05/17/16 20:00 100 Nasal Cannula 3.00 05/17/16 16:00 98 Nasal Cannula 3.00 05/17/16 16:00 99.2 77 26 134/64 100 05/17/16 12:33 98 Nasal Cannula 3.00 05/17/16 11:10 98.5 64 17 149/65 98 05/17/16 11:10 64 05/17/16 09:02 100 Nasal Cannula 3.00 05/18/16 05/18/16 05/18/16 07:00 15:00 23:00 Intake Total 300 ml Balance 300 ml Result Diagram: 05/18/16 0511 05/18/16 0511 Laboratory Results Laboratory Tests Test 05/17/16 05/17/16 05/17/16 05/17/16 12:23 15:00 16:13 18:00 Blood Bank Comment White Blood Count 16.0 TH/MM3 Red Blood Count 2.83 MIL/MM3 Hemoglobin 8.9 GM/DL Hematocrit 26.3 % Mean Corpuscular Volume 92.9 FL Mean Corpuscular Hemoglobin 31.3 PG Mean Corpuscular Hemoglobin 33.7 % Concent Red Cell Distribution Width 16.6 % Platelet Count 19 TH/MM3 Mean Platelet Volume 8.8 FL Neutrophils (%) (Auto) 90.2 % Lymphocytes (%) (Auto) 5.0 % Monocytes (%) (Auto) 4.6 % Eosinophils (%) (Auto) 0.1 % Basophils (%) (Auto) 0.1 % Neutrophils # (Auto) 14.4 TH/MM3 Lymphocytes # (Auto) 0.8 TH/MM3 Monocytes # (Auto) 0.7 TH/MM3 Eosinophils # (Auto) 0.0 TH/MM3 Basophils # (Auto) 0.0 TH/MM3 CBC Comment AUTO DIFF Differential Comment AUTO DIFF CONFIRMED Platelet Estimate RARE Platelet Morphology Comment NORMAL Acanthocytes OCC Lactate Dehydrogenase 311 U/L Troponin I 18.20 NG/ML 18.30 NG/ML Blood Type O NEGATIVE Crossmatch Leukocyte-Reduced Red Blood Cells Test 05/17/16 05/18/16 20:25 05:11 Troponin I 15.60 NG/ML White Blood Count 8.5 TH/MM3 Red Blood Count 3.02 MIL/MM3 Hemoglobin 9.2 GM/DL Hematocrit 26.6 % Mean Corpuscular Volume 88.0 FL Mean Corpuscular Hemoglobin 30.4 PG Mean Corpuscular Hemoglobin 34.6 % Concent Red Cell Distribution Width 21.5 % Platelet Count 30 TH/MM3 Mean Platelet Volume 10.4 FL Neutrophils (%) (Auto) 87.9 % Lymphocytes (%) (Auto) 8.4 % Monocytes (%) (Auto) 3.6 % Eosinophils (%) (Auto) 0.0 % Basophils (%) (Auto) 0.1 % Neutrophils # (Auto) 7.5 TH/MM3 Lymphocytes # (Auto) 0.7 TH/MM3 Monocytes # (Auto) 0.3 TH/MM3 Eosinophils # (Auto) 0.0 TH/MM3 Basophils # (Auto) 0.0 TH/MM3 CBC Comment AUTO DIFF Sodium Level 132 MEQ/L Potassium Level 4.9 MEQ/L Chloride Level 96 MEQ/L Carbon Dioxide Level 27.5 MEQ/L Anion Gap 9 MEQ/L Blood Urea Nitrogen 46 MG/DL Creatinine 4.84 MG/DL Estimat Glomerular Filtration 10 ML/MIN Rate Random Glucose 129 MG/DL Calcium Level 9.1 MG/DL Total Bilirubin 0.5 MG/DL Aspartate Amino Transf 57 U/L (AST/SGOT) Alanine Aminotransferase 25 U/L (ALT/SGPT) Alkaline Phosphatase 84 U/L Total Protein 6.3 GM/DL Albumin 2.9 GM/DL Administered Medications Medications (Trade) Dose Ordered Sig/Thierry Route PRN Reason Start Time Stop Time Status Last Admin Dose Admin Alprazolam (Xanax) 0.25 mg Q8H PRN PO ANXIETY 05/09/16 17:15 Hold 05/13/16 10:28 Carvedilol (Coreg) 12.5 mg Q12HR PO 05/09/16 21:00 05/17/16 20:22 Docusate Sodium (Colace) 100 mg BID PO 05/09/16 21:00 05/17/16 10:40 Sevelamer Carbonate (Renvela) 800 mg TID PO 05/09/16 18:00 05/17/16 16:29 Acetaminophen (Tylenol) 650 mg Q4H PRN PO TEMP > 100.4 05/09/16 17:30 05/14/16 01:11 Zolpidem Tartrate (Ambien) 5 mg HS PRN PO INSOMNIA 05/09/16 17:30 05/15/16 22:00 Megestrol Acetate (Megace Liq) 800 mg DAILY PO 05/10/16 09:00 05/17/16 10:41 Amlodipine Besylate (Norvasc) 5 mg DAILY PO 05/14/16 09:00 05/17/16 10:40 Tramadol HCl (Ultram) 50 mg Q12H PRN PO CHEST PAIN 05/14/16 10:30 05/17/16 23:43 Sodium Chloride (NS Flush) 2 ml BID .XX 05/16/16 21:00 05/17/16 20:22 Insulin Aspart (NovoLOG SUPPLEMENTAL SCALE) 1 Q6H SQ 05/17/16 06:00 05/17/16 23:43 Nitroglycerin (Nitrostat Sl) 0.4 mg Q5M PRN SL CHEST PAIN 05/17/16 15:00 05/18/16 07:58 Nitroglycerin (Nitroglycerin 2% Oint) 2 inch Q6H TOPICAL 05/17/16 16:00 05/18/16 05:27 Objective Remarks GENERAL: Well-nourished, well-developed patient. weak. SKIN: Warm and dry. HEAD: Normocephalic. EYES: No scleral icterus. No injection or drainage. NECK: Supple, trachea midline. No JVD or lymphadenopathy. LYMPHATIC: No adenopathy. CARDIOVASCULAR: Regular rate and rhythm without murmurs. RESPIRATORY: Breath sounds equal bilaterally. No accessory muscle use. GASTROINTESTINAL: Abdomen soft, non-tender, nondistended. EXTREMITIES: No cyanosis, or edema. MUSCULOSKELETAL: Adequate muscle tone. NEUROLOGICAL: No obvious focal deficit. Awake, alert, and oriented x3. PSYCHIATRIC: Appropriate mood and affect; insight and judgment normal. Assessment/Plan Assessment 1. Severe thrombocytopenia due to the Aggrastat. Her platelet count was 276,000 05/16 and dropped to 5000 after receiving Aggrastat. Peripheral smear did not show any platelet clumping. The platelet morphology appeared normal and there was significantly decreased platelet count. No significant schistocytes noted. HIT ab pending. Her hemoglobin has been stable. Aggrastat, heparin and Plavix antiplatelet agents have all been discontinued. Received 1U platelet 05/17. 05/18 platelet trended up to 30K, no bleeding noted. Will monitor her platelet count closely. She can restart antiplatelet agents after her platelet count starts trending up. 2. Anemia due to a chronic kidney disease, hemoglobin stable at 9.3. 3. Mild leukocytosis, likely leukemoid reaction. No clear evidence of infection. resolved. 4. End-stage renal disease, on hemodialysis. Recommend not to use heparin for dialysis. 5. Coronary artery disease, status post stent placement yesterday. Without the antiplatelet agents she has an increased risk of clotting the stent, but at this point she is not able to receive any antiplatelet agents due to severe thrombocytopenia. Plan Plan: 1. Monitor CBC. No transfusion needed today. 2. HIT antibody pending. 3. Can restart antiplatelet agents when platelet >50K. Xavi Gant MD May 18, 2016 08:02
[2016-05-18] MEDS: DOCUSATE SODIUM 100 MG CAP PO SCH ×2 (08:32→21:00)
[2016-05-18] MEDS: CARVEDILOL 12.5 MG TAB PO SCH ×2 (08:32→21:09)
[2016-05-18] MEDS: MEGESTROL ACETATE SUSP 400 MG/10 ML CUP PO SCH (08:32)
[2016-05-18] MEDS: SEVELAMER CARBONATE 800 MG TAB PO SCH ×3 (08:32→18:00)
[2016-05-18] MEDS: SODIUM CHLORIDE 0.9% FLUSH 10 ML FLUSH SCH ×2 (08:32→21:00)
[2016-05-18] MEDS: amLODIPine BESYLATE 5 MG TAB PO SCH (08:32)
--- NOTE | 2016-05-18 12:07 | HHI.NPPN ---
Subjective General Problems: Anemia Renal Failure: Chronic, End Stage Renal Disease Interval History She is on Tridil gtt and also has a patch. No reports of chest pain. Had full HD yesterday. (Lelo Chong) Review of Systems General Constitutional: Fatigue (Lelo Chong) Cardiovascular Cardiac: Chest Pain (Lelo Chong) Objective Data Data 05/17/16 05/18/16 19:00 07:00 Intake Total 200 ml 1158 ml Output Total 2000 ml Balance -1800 ml 1158 ml Intake Oral 200 ml 900 ml IV Total 50 ml Packed Cells 208 ml Output Urine Total 0 ml Hemodialysis 2000 ml # Bowel Movements 1 Vital Signs Date Time Temp Pulse Resp B/P Pulse Ox O2 Delivery O2 Flow Rate FiO2 05/18/16 10:00 98 05/18/16 08:17 94 21 05/18/16 08:00 98 Nasal Cannula 2.00 05/18/16 08:00 98.3 98 16 148/92 97 05/18/16 08:00 81 05/18/16 06:00 81 05/18/16 04:00 80 05/18/16 04:00 98.5 80 16 122/61 96 05/18/16 04:00 100 Nasal Cannula 3.00 05/18/16 02:00 74 05/18/16 01:10 20 05/18/16 00:00 98.4 78 21 115/57 100 05/18/16 00:00 78 05/18/16 00:00 100 Nasal Cannula 3.00 05/18/16 00:00 100 Nasal Cannula 3.00 05/17/16 22:00 80 05/17/16 21:57 98.6 79 13 118/59 100 05/17/16 20:51 98 Nasal Cannula 2.00 05/17/16 20:00 79 05/17/16 20:00 100 Nasal Cannula 3.00 05/17/16 16:00 98 Nasal Cannula 3.00 05/17/16 16:00 99.2 77 26 134/64 100 05/17/16 12:33 98 Nasal Cannula 3.00 (Lelo Chong) -: 05/18/16 0511 05/18/16 0511 Imaging Last Impressions Chest X-Ray 05/17/16 0000 Signed Impressions: Service Date/Time: Tuesday, May 17, 2016 07:09 - CONCLUSION: 1. Suspected trace bilateral pleural effusions. 2. Large hiatal hernia with associated compressive atelectasis in the left lower lobe. This is a stable finding. Tristian Hdz MD Aorta CTA 05/10/16 0000 Signed Impressions: Service Date/Time: Tuesday, May 10, 2016 15:13 - CONCLUSION: 1. There is no evidence of aortic dissection. The widening of the mediastinum seen on the chest x-ray appears to represent a combination of pleural fluid and atelectatic lung along the descending thoracic aorta. 2. There are COPD changes within the pulmonary parenchyma. 3. There are small bilateral effusions. 4. The abdominal aorta and iliac vessels are intact. Yehuda Hanna MD Drip Comment Tridil (Lelo Chong B. [employer]ILD LIFE MANAGER) Physical Exam General Appearance: Well Developed, Well Nourished, No Acute Distress, Comfortable, Malnourished (Lelo Chong B. [employer]ILD [employer] MANAGER) Eyes Eye Exam: Pupils Equal (Harish Chongon B. [employer] MANAGER) Throat Throat Exam: Oral Mucosa [place] & Moist (ArletteLelo B. [employer]ILD LIFE MANAGER) Neck Neck Exam: Neck Supple (ArletteLelo B. [employer]ILD LIFE MANAGER) Pulmonary Resp Exam: Clear Bilaterally, Breath Sounds Equal, No Distress (Arlette Lelo B. [employer]ILD LIFE MANAGER) Cardiology CV Exam: Regular, Normal Sinus Rhythm, Good Perfusion, Dyspnea on Exertion ( ArletteLelo B. [employer]ILD LIFE MANAGER) Gastrointestinal/Abdomen GI Exam: Soft, Non-Tender, Bowel Sounds Present (ArletteLelo B. WILD LIFE MANAGER) Musculoskeletal MS Exam: Joints Intact, Normal Tone (ArletteLelo B. [employer]ILD [employer] MANAGER) Integumentary Skin Exam: Clear, Warm, Dry, Intact (ArletteLelo B. WILD LIFE MANAGER) Extremeties Extremities Exam: No Edema, Pedal Pulses Palpable Extremeties Remarks right AVF, accessed during HD (Lelo Chong B. [employer] MANAGER) Neurologic Neuro Exam: Alert, Awake, Oriented, Speech Clear, Moving All Extremities ( Lelo Chong B. [employer]ILD [employer] MANAGER) Assessment/Plan Discussed Condition With: Patient Assessment Summary: Anemia of CKD, CHF, Hypertension, End Stage Renal Disease Electrolyte Assessment: Hyperkalemia Problem List: (1) ESRD (end stage renal disease) Plan: HD MWF, 2L UF yesterday Volume status stable Hyperkalemia was corrected no acute renal concerns avoid IVF, gadolinium functioning AVF for dialysis she has existing outpatient HD arrangements, can be discharged when cleared by all consulting physicians (2) CAD (coronary artery disease) Plan: adjust UF with dialysis as tolerated/required cardiology following sp cath with stent to LAD, EF 45% on Tridil no further PCI per Dr. Valentin (3) Anemia Plan: on epogen with HD Hb stable goal Hb >10 transfuse PRN (4) Atrial fibrillation Plan: Rate controlled follow with cardiology (5) Thrombocytopenia Plan: acute antiplatelets have been hold no heparin with HD given 1 unit platelet hematology has evaluated monitor for bleeding (Lelo Chong) Plan patient was seen and examined. Treatment was cut short yesterday as the patient had to be moved ([facility] needed the room). Cardiology note was reviewed. Hospice and palliative care may be appropriate. Continue dialysis support. She received platelet transfusion. (Roland Miramontes MD) Problem Qualifiers (1) CAD (coronary artery disease): Qualified Code: I25.10 - Coronary artery disease due to calcified coronary lesion Lelo Chong May 18, 2016 12:07 Roland Miramontes MD May 18, 2016 16:32
--- NOTE | 2016-05-18 13:27 | PD.CARD.PN ---
Subjective Subjective Remarks having intermittent chest pain Objective Vital Signs / I&O Vital Signs Date Time Temp Pulse Resp B/P Pulse Ox O2 Delivery O2 Flow Rate FiO2 05/18/16 10:00 98 05/18/16 08:17 94 21 05/18/16 08:00 98 Nasal Cannula 2.00 05/18/16 08:00 98.3 98 16 148/92 97 05/18/16 08:00 81 05/18/16 06:00 81 05/18/16 04:00 80 05/18/16 04:00 98.5 80 16 122/61 96 05/18/16 04:00 100 Nasal Cannula 3.00 05/18/16 02:00 74 05/18/16 01:10 20 05/18/16 00:00 98.4 78 21 115/57 100 05/18/16 00:00 78 05/18/16 00:00 100 Nasal Cannula 3.00 05/18/16 00:00 100 Nasal Cannula 3.00 05/17/16 22:00 80 05/17/16 21:57 98.6 79 13 118/59 100 05/17/16 20:51 98 Nasal Cannula 2.00 05/17/16 20:00 79 05/17/16 20:00 100 Nasal Cannula 3.00 05/17/16 16:00 98 Nasal Cannula 3.00 05/17/16 16:00 99.2 77 26 134/64 100 I/O 05/17/16 05/17/16 05/17/16 05/18/16 05/18/16 05/18/16 07:00 15:00 23:00 07:00 15:00 23:00 Intake Total 815 ml 200 ml 858 ml 300 ml Output Total 0 ml 2000 ml Balance 815 ml -1800 ml 858 ml 300 ml Intake Oral 200 ml 200 ml 600 ml 300 ml IV Total 365 ml 50 ml Packed Cells 250 ml 208 ml Output Urine Total 0 ml 0 ml Hemodialysis 2000 ml # Bowel Movements 1 1 Physical Exam GENERAL: SKIN: Warm and dry. HEAD: Normocephalic. EYES: No scleral icterus. No injection or drainage. NECK: Supple, trachea midline. No JVD or lymphadenopathy. CARDIOVASCULAR: Regular rate and rhythm without murmurs, gallops, or rubs. RESPIRATORY: Breath sounds equal bilaterally. No accessory muscle use. GASTROINTESTINAL: Abdomen soft, non-tender, nondistended. MUSCULOSKELETAL: No cyanosis, or edema. BACK: Nontender without obvious deformity. No CVA tenderness. Laboratory Laboratory Tests Test 05/17/16 05/17/16 05/17/16 05/17/16 15:00 16:13 18:00 20:25 White Blood Count 16.0 TH/MM3 Red Blood Count 2.83 MIL/MM3 Hemoglobin 8.9 GM/DL Hematocrit 26.3 % Mean Corpuscular Volume 92.9 FL Mean Corpuscular Hemoglobin 31.3 PG Mean Corpuscular Hemoglobin 33.7 % Concent Red Cell Distribution Width 16.6 % Platelet Count 19 TH/MM3 Mean Platelet Volume 8.8 FL Neutrophils (%) (Auto) 90.2 % Lymphocytes (%) (Auto) 5.0 % Monocytes (%) (Auto) 4.6 % Eosinophils (%) (Auto) 0.1 % Basophils (%) (Auto) 0.1 % Neutrophils # (Auto) 14.4 TH/MM3 Lymphocytes # (Auto) 0.8 TH/MM3 Monocytes # (Auto) 0.7 TH/MM3 Eosinophils # (Auto) 0.0 TH/MM3 Basophils # (Auto) 0.0 TH/MM3 CBC Comment AUTO DIFF Differential Comment AUTO DIFF CONFIRMED Platelet Estimate RARE Platelet Morphology Comment NORMAL Acanthocytes OCC Lactate Dehydrogenase 311 U/L Troponin I 18.20 NG/ML 18.30 NG/ML 15.60 NG/ML Blood Type O NEGATIVE Crossmatch Leukocyte-Reduced Red Blood Cells Blood Bank Comment Test 05/18/16 05:11 White Blood Count 8.5 TH/MM3 Red Blood Count 3.02 MIL/MM3 Hemoglobin 9.2 GM/DL Hematocrit 26.6 % Mean Corpuscular Volume 88.0 FL Mean Corpuscular Hemoglobin 30.4 PG Mean Corpuscular Hemoglobin 34.6 % Concent Red Cell Distribution Width 21.5 % Platelet Count 30 TH/MM3 Mean Platelet Volume 10.4 FL Neutrophils (%) (Auto) 87.9 % Lymphocytes (%) (Auto) 8.4 % Monocytes (%) (Auto) 3.6 % Eosinophils (%) (Auto) 0.0 % Basophils (%) (Auto) 0.1 % Neutrophils # (Auto) 7.5 TH/MM3 Lymphocytes # (Auto) 0.7 TH/MM3 Monocytes # (Auto) 0.3 TH/MM3 Eosinophils # (Auto) 0.0 TH/MM3 Basophils # (Auto) 0.0 TH/MM3 CBC Comment AUTO DIFF Differential Comment AUTO DIFF CONFIRMED Platelet Estimate LOW Platelet Morphology Comment NORMAL Sodium Level 132 MEQ/L Potassium Level 4.9 MEQ/L Chloride Level 96 MEQ/L Carbon Dioxide Level 27.5 MEQ/L Anion Gap 9 MEQ/L Blood Urea Nitrogen 46 MG/DL Creatinine 4.84 MG/DL Estimat Glomerular Filtration 10 ML/MIN Rate Random Glucose 129 MG/DL Calcium Level 9.1 MG/DL Total Bilirubin 0.5 MG/DL Aspartate Amino Transf 57 U/L (AST/SGOT) Alanine Aminotransferase 25 U/L (ALT/SGPT) Alkaline Phosphatase 84 U/L Total Protein 6.3 GM/DL Albumin 2.9 GM/DL Assessment and Plan Problem List: (1) Atrial fibrillation, new onset (2) Aortic stenosis (3) Hypertension (4) Hyperlipidemia (5) Depression (6) CAD (coronary artery disease) (7) Chest pain (8) Cardiomyopathy Assessment and Plan 1.) CAD - s/p pci bms mid lad, small diagonal vessel jailed but patent, dapt held due to thrombocytopenia; restart dapt when plt>50; chest pain due to jailed 90% ostial small dx vessel and/or noncardiac, do not thonk this is a life threatening stenosis or that requires admission, o/w patient is completely revascularized 2.) PAF - in nsr, assymptomatic, eliquis held d/t thrombocytopenia 3.) PEA - suspect d/t apnea from fentanyl and/or versed, trop elavted due to pea , trending down pci; patient is hospice, do not rec recurrent cath due to high risk d/t thrombocytopenia, pea from conscience sedation from fentanyl/versed and inability to access diagonal vessel d/t vessel tortuosity and 90 degreee angle off lad; rec palliative care consult, prn ntg 4.) Ok to dc from cv standpoint, f/u with me hellen; rec hospice Problem Qualifiers (1) Hypertension: Qualified Code: I10 - Essential hypertension (2) CAD (coronary artery disease): Qualified Code: I25.10 - Coronary artery disease due to calcified coronary lesion (3) Chest pain: Qualified Code: R07.2 - Precordial pain Zohaib Valentin MD May 18, 2016 13:27
[2016-05-18] MEDS: traMADol HCL 50 MG TAB PO PRN (14:52)
[2016-05-18 16:03] LABS: HEPARIN AB OD 0.037 O.D. (0.000-0.300); HEPARIN INDUCED PLATELET AB NEGATIVE (NEGATIVE)
--- NOTE | 2016-05-18 16:14 | HHI.PR ---
Subjective Remarks Patient is c/o chest pain - substernal, / , non radiating. c/o shortness of breath denies cough denies fevers/chills Objective Vitals Vital Signs Date Time Temp Pulse Resp B/P Pulse Ox O2 Delivery O2 Flow Rate FiO2 05/18/16 14:00 75 05/18/16 12:00 73 05/18/16 12:00 99 Nasal Cannula 2.00 05/18/16 10:00 98 05/18/16 08:17 94 21 05/18/16 08:00 98 Nasal Cannula 2.00 05/18/16 08:00 98.3 98 16 148/92 97 05/18/16 08:00 81 05/18/16 06:00 81 05/18/16 04:00 80 05/18/16 04:00 98.5 80 16 122/61 96 05/18/16 04:00 100 Nasal Cannula 3.00 05/18/16 02:00 74 05/18/16 01:10 20 05/18/16 00:00 98.4 78 21 115/57 100 05/18/16 00:00 78 05/18/16 00:00 100 Nasal Cannula 3.00 05/18/16 00:00 100 Nasal Cannula 3.00 05/17/16 22:00 80 05/17/16 21:57 98.6 79 13 118/59 100 05/17/16 20:51 98 Nasal Cannula 2.00 05/17/16 20:00 79 05/17/16 20:00 100 Nasal Cannula 3.00 05/17/16 16:00 98 Nasal Cannula 3.00 05/17/16 16:00 99.2 77 26 134/64 100 I/O 05/17/16 05/17/16 05/17/16 05/18/16 05/18/16 05/18/16 07:00 15:00 23:00 07:00 15:00 23:00 Intake Total 815 ml 200 ml 858 ml 300 ml 621 ml Output Total 0 ml 2000 ml 0 ml Balance 815 ml -1800 ml 858 ml 300 ml 621 ml Intake Oral 200 ml 200 ml 600 ml 300 ml 600 ml IV Total 365 ml 50 ml 21 ml Packed Cells 250 ml 208 ml Output Urine Total 0 ml 0 ml 0 ml Hemodialysis 2000 ml # Bowel Movements 1 1 0 Result Diagram: 05/18/1651005/18/16510 Objective Remarks GENERAL: Patient with mild dyspnea and mild distress due to chest pain. [place] SKIN: Warm and dry. HEAD: Atraumatic. Normocephalic. EYES: Pupils equal and round. No scleral icterus. No injection or drainage. ENT: No nasal bleeding or discharge. Mucous membranes pink and moist. NECK: Trachea midline. No JVD. CARDIOVASCULAR: Regular rate and rhythm. systolic II/ murmur best hear in the 2nd left parasternal border. RESPIRATORY: No accessory muscle use. Clear to auscultation. Breath sounds equal bilaterally. GASTROINTESTINAL: Abdomen soft, non-tender, nondistended. Hepatic and splenic margins not palpable. MUSCULOSKELETAL: Extremities without clubbing, cyanosis, or edema. No obvious deformities. NEUROLOGICAL: Awake and alert. No obvious cranial nerve deficits. Motor grossly within normal limits. Five out of 5 muscle strength in the arms and legs. Normal speech. PSYCHIATRIC: Appropriate mood and affect; insight and judgment normal. Procedures Cardiac Catheterization on 05/16/16 - as per report bare metal stent placed to the mid LAD. Intubation and mechanical ventilation due to PEA arrest after Cardiac Catheterization. Medications and IVs Current Medications Medications (Trade) Dose Ordered Sig/Thierry Route Start Time Stop Time Status Last Admin (Xanax) 0.25 mg Q8H PRN PO 05/09/16 17:15 Hold 05/13/16 10:28 (Coreg) 12.5 mg Q12HR PO 05/09/16 21:00 05/18/16 08:32 (Colace) 100 mg BID PO 05/09/16 21:00 05/18/16 08:32 (Renvela) 800 mg TID PO 05/09/16 18:00 05/18/16 12:24 (Xalatan 0.005% Opth Soln) 1 drop HS PRN EACH EYE 05/09/16 17:30 (Tylenol) 650 mg Q4H PRN PO 05/09/16 17:30 05/14/16 01:11 (Zofran Inj) 4 mg Q6H PRN IVP 05/09/16 17:30 (Dulcolax Supp) 10 mg DAILY PRN RECTAL 05/09/16 17:30 (Ambien) 5 mg HS PRN PO 05/09/16 17:30 05/15/16 22:00 (Narcan Inj) 0.4 mg UNSCH PRN IV 05/09/16 17:30 (Megace Liq) 800 mg DAILY PO 05/10/16 09:00 05/18/16 08:32 (Norvasc) 5 mg DAILY PO 05/14/16 09:00 05/18/16 08:32 (Ultram) 50 mg Q12H PRN PO 05/14/16 10:30 05/18/16 14:52 (NS Flush) 2 ml UNSCH PRN .XX 05/16/16 15:00 (NS Flush) 2 ml BID .XX 05/16/16 21:00 05/18/16 08:32 (Aspirin Chew) 162 mg DAILY PO 05/17/16 09:00 Hold (D50w (Vial) Inj) 25 ml UNSCH PRN IV PUSH 05/17/16 04:45 (Glucagon Inj) 1 mg UNSCH PRN OTHER 05/17/16 04:45 (NovoLOG SUPPLEMENTAL SCALE) 1 Q6H SQ 05/17/16 06:00 05/18/16 12:00 Nitroglycerin 0.4 mg 0.4 mg Q5M PRN SL 05/17/16 15:00 05/18/16 08:31 (Nitroglycerin-Dextrose Inj) 250 ml @ 0 mls/hr TITRATE IV 05/17/16 16:00 (Nitroglycerin 2% Oint) 2 inch Q6H TOPICAL 05/17/16 16:00 05/18/16 14:50 Urinary Catheter: No Vascular Central Line Catheter: No A/P Problem List: (1) Unstable angina ICD Code: I20.0 Status: Resolved (2) Paroxysmal atrial fibrillation ICD Code: I48.0 Status: Acute (3) Mediastinal widening ICD Code: R93.8 Status: Acute (4) COPD (chronic obstructive pulmonary disease) ICD Code: J44.9 Status: Acute (5) ESRD (end stage renal disease) ICD Code: N18.6 Status: Acute (6) Severe anemia ICD Code: D64.9 Status: Acute (7) Hypertension ICD Code: I10 Status: Acute (8) Hyponatremia ICD Code: E87.1 Status: Acute Assessment and Plan (1) Unstable angina Plan: Cardiology following. Patient status post left heart catheterization with stent placement to the LAD as per catheterization report. Patient's cardiac catheterization was complicated by a PEA arrest and hypoxemia which required ACLS and intubation as well as mechanical ventilation. Anesthesia intubated the patient. The patient had a return of spontaneous circulation. Patient was then seen in consultation by the die maker who referred the patient. The patient was extubated on 05/17/16. Her stay was also complicated by thrombus cytopenia for which hematology was consulted and thought to be secondary to Aggrenox at that time. The patient now complains of chest pain described as pressure 6/10 substernal and nonradiating. She is also mildly dyspneic. The patient is a very high risk for in-stent thrombosis since her at the platelet therapy was held due to thrombocytopenia possibly caused by Aggrastat. I will order stat EKG, cardiac enzymes, and will RX 1 gm of intravenous acetaminophen (Ofirmev). As per cardiology recommendation, Dr. Valentin does not think that this is a life-threatening chest pain and this could be due to jailed 90% ostial small dx vessel and/or noncardiacThe Dr. Valentin states that the patient is at high risk for catheterization due to low platelets. Continue as needed nitroglycerin drip. The patient has been cleared from the perivascular standpoint to be discharged. Hospice care recommended. (2) Paroxysmal atrial fibrillation Plan: On Eliquis. Continue carvedilol for rate control. Paroxysmal A. fib is rate controlled. (3) Mediastinal widening Plan: Negative CTA. (4) COPD (chronic obstructive pulmonary disease) Plan: Seems stable. Not on any inhalers. (5) ESRD (end stage renal disease) Plan: Nephrology following. Hemodialysis as per nephrology schedule on Mondays , Sunday and Sunday. Patient has been cleared by nephrology for DC. (6) Severe anemia Plan: Patient initially admitted with hemoglobin of 6.8. Status post transfusion of 2 units of packed blood cells. Continue to monitor hemoglobin. Ocult blood in feces checked and negative. Iron studies consistent with anemia of chronic disease with marrow of 24, TIBC 116, percent saturation 11.1 and 935. hemoglobin stable - 10.8 (7) Hypertension Plan: Bp somewhat on lower side. Amlodipine dose decreased to 5 mg daily. Bp now better. (8) Hyponatremia Plan: Sodium slightly low at 132. Continue to monitor BMP. GI prophylaxis: Continue PPI DVT prophylaxis: SCDs, on eliquis. Discharge Planning Continue to monitor in the cardiac floor. Once ready DC [facility] with hospice Problem Qualifiers (1) COPD (chronic obstructive pulmonary disease): (2) Hypertension: Qualified Code: I10 - Essential hypertension David Giron MD May 18, 2016 16:13
[2016-05-18] MEDS ORDERED: oxyCODONE/ACETAMINOPHEN 5 MG/325 MG TAB PO PRN ×3 (16:15→16:30)
[2016-05-18] MEDS ORDERED: ACETAMINOPHEN 1000 MG/100 ML VIAL IV ONE (17:00)
--- NOTE | 2016-05-18 17:01 | PD.CONS ---
Consult Service Palliative Care . Consult Requested By Dr. Valentin . Primary Care Physician Ashlyn Mao MD . Reason for Consultation a. To assist with evaluation and management of symptoms including: pain, dyspnea, anxiety b. To assist medical decision maker(s) with: better understanding of current medical conditions; weighing benefits/burdens of medical treatment options; making medical treatment decisions. (Paradise Franco) HPI History of Present Illness Ms. Meehan is an 85-year-old female who presented to [place] ED via EMS on for evaluation of chest pain. The patient is a long-term resident of the [facility] where she is on [facility]. The patient stated her pain started earlier in the morning and lasted approximately 5 hours before resolving spontaneously. The patient described her pain as aching and stated it was located in the center of her chest. Symptoms were moderately severe, no alleviating factors. Patient denied shortness of breath, cough, fever. She stated the pain was similar to the pain she experienced 2 months ago when she was hospitalized with chest pain. During that hospitalization a cardiac catheterization was done on 04/07/16 with stent placement 2. Of note, the patient's past medical history is significant for ESRD on hemodialysis (M/W/F), CAD, anxiety/depression, chronic anemia, COPD, CHF, GERD, migraines and FAYE. Additional diagnostic findings include: * Vital signs: Pulse 62, respirations 16, BP 156/74, oxygen saturation 98% on room air, oral temperature 98.2 * WBC: 4.9, hemoglobin 6.8, hematocrit 9.1, platelets 254, neutrophils 55.5% * Sodium: 134, potassium 5.5, chloride 100, carbon dioxide 27.1, glucose 81, calcium 9.0 * BUN 32, creatinine 4.11, GFR 12 * Total creatine kinase: 75 * Troponin: 0.04 * PT: 11.3, INR 1.0, APTT 28.7 * Chest x-ray: Possible superior mediastinal mass versus aneurysm, the superior mediastinum appears somewhat widened; COPD changes; cardiomegaly. * CTA: No evidence of aortic dissection, the widening of the mediastinum seen on the chest x-ray appears to represent a combination of pleural fluid and atelectatic lung along the descending thoracic aorta; there are COPD changes within the pulmonary parenchyma; there are small bilateral effusions; the abdominal aorta and iliac vessels are intact. * EKG: Sinus rhythm with no acute ST elevations; Marked left axis deviation possibly left ventricular hypertrophy. Patient was severely anemic and symptomatic with chest pain and hemoglobin of 6.8. Transfused with 1 unit of RBCs. There was no evidence of GI bleed by history or rectal examHemoccult negative stool. Patient on aspirin, Plavix and I'll request. Ms. Meehan is on hospice, but she wants mission and a full evaluation of her medical problems. Diagnostic results were discussed with patient's primary care physician, Dr. Marx, who will admit the patient. Cardiology and nephrology were consulted. Dr. Valentin, cardiology, is familiar this patient who underwent a cardiac catheterization on 04/06/16 where she had to stents placed. Patient did well postoperatively but has not followed up outpatient as requested. Echocardiogram on 05/10/16 showed systolic function was mildly to moderately reduced; EF of 40% to 45%; mildmoderate mitral valve regurgitation, left and right atrium were mildly dilated; mild tricuspid valve regurgitation; left pleural effusion Patient continues to report chest pain of 3/10 on despite stable hemoglobin and blood pressure. Monitoring serial EKGs and serial cardiac enzymes. Patient was taken to cardiac catheterization on 05/16/16 for revascularization - a metal stent was placed in the LAD. Patient became unresponsive, hypoxic and sustained a PEA arrest at the conclusion of the procedure, requiring ACLS. Patient was extubated to nasal cannula and critical care medicine was consulted. Overnight the patient had intermittent stridor. She was placed on Decadron and PRN racemic epinephrine with good response. Platelet count was decreased from 276,000 on 05/16/16 to 5,000 on 05/17/16. Repeat platelet count came back at 8000 , confirming acute thrombocytopenia. A stat hematology consult was placed for evaluation of severe thrombocytopenia. Per notes, patient was given Aggrastat and Heparin during the cardiac catheterization. She had also been getting heparin with dialysis. Dr. Gant reviewed patient's peripheral smear. He felt that patient's severe thrombocytopenia was consistent with drug-induced thrombocytopenia due to Aggrastat. Aggrastat, Plavix and aspirin were all discontinued. Patient received 1 unit of platelet transfusion. Palliative Care was consulted to assist with symptom management and to discuss with the patient the benefits and burdens of her current illnesses and the options regarding future care. Patient was examined in room 525. Dr. Carr and the patient's nurse, Rigo , were also present for part of the time. The patient was alert and oriented to person place and time. She became tearful toward the end of our visit, complaining of midsternal pain rated 6/10. Patient becomes short of breath with conversation. Discussed with Dr. Carr who ordered 1G IV acetaminophen 1 and PRN oxycodone. Lab work and EKG pending. . Function/Cognitive Trajectory Patient was started on hemodialysis 6 months ago. She was hospitalized in April with chest pain. She was subsequently had a cardiac catheterization with stent placement 2. Upon discharge the patient returned to the [facility]. At that time the patient was nonambulatory. She was readmitted on 05/10/16 with chest pain, chronic anemia, NSTEMI. . (Paradise Franco) Review of Systems ROS Limitations: Clinical Condition Constitutional: COMPLAINS OF: Fatigue, Pain (Midsternal chest pain, nonradiating. Rated 6/10), Generalized weakness Respiratory: COMPLAINS OF: Shortness of breath Cardiovascular: COMPLAINS OF: Chest pain, Palpitations, Dyspnea on Exertion, Lower Extremity Edema (trace) Gastrointestinal: DENIES: Abdominal pain, Nausea, Vomiting Musculoskeletal: COMPLAINS OF: Back pain (chronic back pain) Hematologic/Lymphatics: COMPLAINS OF: Bruising, History of transfusions Psychiatric: COMPLAINS OF: Anxiety (Paradise Franco) Past Family Social History Coded Allergies: Dilaudid (Verified Allergy, Severe, ANAPHYLACTIC, 04/03/16) Morphine (Verified Allergy, Severe, ANAPHYLACTIC, 04/03/16) *MDRO Multi-Drug Resistant Organism (Verified Adverse Reaction, Unknown, ) 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 Past Surgical History Appendectomy Right upper extremity AV shunt placement Cardiac stent Kidney stent Left cataract extraction Nephrolithiasis, status post removal Hysterectomy bilateral hip replacement Bilateral total knee arthroplasty Tonsillectomy . Reported Medications Nephro-Anne (B-Complex W/ C & Folic Acid) 1 Tab 1 Tab PO DAILY Sensipar (Cinacalcet) 30 Mg Tab 30 Mg PO DAILY Xanax (Alprazolam) 0.25 Mg Tab 0.25 Mg PO Q8H PRN Renvela (Sevelamer Carbonate) 800 Mg Tab 800 Mg PO TID Carvedilol 12.5 Mg Tab 12.5 Mg PO Q12HR Thera-M (Multiple Vitamins W/ Minerals) 1 Tab 1 Tab PO DAILY Tylenol (Acetaminophen) 325 Mg Cap 650 Mg PO Q4HR PRN Docusate Sodium 100 Mg Cap 100 Mg PO BID Eliquis (Apixaban) 2.5 Mg Tab 2.5 Mg PO BID Aspirin 81 Mg Tabdr 81 Mg PO DAILY Travatan Z Opth Drops (Travoprost) 0.004 % Soln 1 Drop EACH EYE HS PRN Viibryd (Vilazodone) 40 Mg Tab 40 Mg PO DAILY . Current Medications Medications (Trade) Dose Ordered Sig/Thierry Route Start Time Stop Time Status Last Admin (Xanax) 0.25 mg Q8H PRN PO 05/09/16 17:15 Hold 05/13/16 10:28 (Coreg) 12.5 mg Q12HR PO 05/09/16 21:00 05/18/16 08:32 (Colace) 100 mg BID PO 05/09/16 21:00 05/18/16 08:32 (Renvela) 800 mg TID PO 05/09/16 18:00 05/18/16 08:32 (Xalatan 0.005% Opth Soln) 1 drop HS PRN EACH EYE 05/09/16 17:30 (Tylenol) 650 mg Q4H PRN PO 05/09/16 17:30 05/14/16 01:11 (Zofran Inj) 4 mg Q6H PRN IVP 05/09/16 17:30 (Dulcolax Supp) 10 mg DAILY PRN RECTAL 05/09/16 17:30 (Ambien) 5 mg HS PRN PO 05/09/16 17:30 05/15/16 22:00 (Narcan Inj) 0.4 mg UNSCH PRN IV 05/09/16 17:30 (Megace Liq) 800 mg DAILY PO 05/10/16 09:00 05/18/16 08:32 (Norvasc) 5 mg DAILY PO 05/14/16 09:00 05/18/16 08:32 (Ultram) 50 mg Q12H PRN PO 05/14/16 10:30 05/17/16 23:43 (NS Flush) 2 ml UNSCH PRN .XX 05/16/16 15:00 (NS Flush) 2 ml BID .XX 05/16/16 21:00 05/18/16 08:32 (Aspirin Chew) 162 mg DAILY PO 05/17/16 09:00 Hold (D50w (Vial) Inj) 25 ml UNSCH PRN IV PUSH 05/17/16 04:45 (Glucagon Inj) 1 mg UNSCH PRN OTHER 05/17/16 04:45 (NovoLOG SUPPLEMENTAL SCALE) 1 Q6H SQ 05/17/16 06:00 05/17/16 23:43 Nitroglycerin 0.4 mg 0.4 mg Q5M PRN SL 05/17/16 15:00 05/18/16 08:31 (Nitroglycerin-Dextrose Inj) 250 ml @ 0 mls/hr TITRATE IV 05/17/16 16:00 (Nitroglycerin 2% Oint) 2 inch Q6H TOPICAL 05/17/16 16:00 05/18/16 08:32 . Family History Family history of heart disease reported. . Substance Use Tobacco: Former smoker, quit approximately 40 years ago Alcohol: Occasional EtOH consumption Prescription med abuse: No known prescription drug abuse Illicits: No known illicit use . Psychosocial History Ms. Meehan was born in [place]. 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 Ms. 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 Patient was twice. She her first after 18 years. Her second recently, they were for 9 years. He was a air conditioning mechanic industrial, she describes her second as ' the most wonderful man". She has 2 adult adopted children. A daughter, Maureen, who lives locally. She also has a son, Marty, but they are not close. . Spiritual/Cultural Factors Spiritual . (Paradise Franco) Health Care Surrogate: Copy in medical record Durable Power of Pipe Line Maintenance Supervisor: Completed, but not made available Date completed: 05/18/16 . Health Care Surrogate(s): Patient's daughter, Maureen Sorensen, is designated as the healthcare surrogate. . Documented care wishes: No documented care wishes are available at this time. . Today's verbally stated goals: Patient requesting symptom management of midsternal chest pain. . Family/friends goals: Patient's daughter is supportive of her mother's goals, anticipating continued comfort focused care. . Ethical and Legal Issues Patient is capacitated at the time of my visit. She demonstrates understanding of her illness and the ability to weigh the benefits and burdens of treatment options. . (Paradise Franco) Physical Exam Vital Signs Date Time Temp Pulse Resp B/P Pulse Ox O2 Delivery O2 Flow Rate FiO2 05/18/16 10:00 98 05/18/16 08:17 94 21 05/18/16 08:00 98 Nasal Cannula 2.00 05/18/16 08:00 98.3 98 16 148/92 97 05/18/16 08:00 81 05/18/16 06:00 81 05/18/16 04:00 80 05/18/16 04:00 98.5 80 16 122/61 96 05/18/16 04:00 100 Nasal Cannula 3.00 05/18/16 02:00 74 05/18/16 01:10 20 05/18/16 00:00 98.4 78 21 115/57 100 05/18/16 00:00 78 05/18/16 00:00 100 Nasal Cannula 3.00 05/18/16 00:00 100 Nasal Cannula 3.00 05/17/16 22:00 80 05/17/16 21:57 98.6 79 13 118/59 100 05/17/16 20:51 98 Nasal Cannula 2.00 05/17/16 20:00 79 05/17/16 20:00 100 Nasal Cannula 3.00 05/17/16 16:00 98 Nasal Cannula 3.00 05/17/16 16:00 99.2 77 26 134/64 100 05/17/16 12:33 98 Nasal Cannula 3.00 . 05/17/16 05/18/16 19:00 07:00 Intake Total 200 ml 1158 ml Output Total 2000 ml Balance -1800 ml 1158 ml Intake Oral 200 ml 900 ml IV Total 50 ml Packed Cells 208 ml Output Urine Total 0 ml Hemodialysis 2000 ml # Bowel Movements 1 . Exam CONSTITUTIONAL/GENERAL: This is an adequately nourished patient, reporting moderate/severe midsternal chest pain and intermittent shortness of breath. TUBES/LINES/DRAINS: CVL, PIV, AVF SKIN: No jaundice, rashes, or lesions. Ecchymoses on upper extremities. No wounds seen anteriorly. Skin temperature appropriate. Not diaphoretic. HEAD: Atraumatic. Normocephalic. EYES: Pupils equal and round and reactive. Extraocular motions intact. No scleral icterus. No injection or drainage. Fundi not examined. ENT: Hearing grossly normal. Nose without bleeding or purulent drainage. NECK: Trachea midline. No JVD. CARDIOVASCULAR: Regular rate and rhythm. + Murmur. Peripheral pulses symmetric. RESPIRATORY/CHEST: On nasal cannula, is neck with conversation. Breath sounds equal bilaterally. No wheezes, rales, or rhonchi. GASTROINTESTINAL: Abdomen soft, non-tender, nondistended. . No guarding. Bowel sounds present. GENITOURINARY: Without palpable bladder distension. MUSCULOSKELETAL: Extremities without clubbing, cyanosis, or edema. No obvious deformities LYMPHATICS: No palpable cervical or supraclavicular adenopathy. NEUROLOGICAL: Awake and alert. Oriented to person place and time. Follows commands. Cognitively appropriate. PSYCHIATRIC: Insight and judgment normal. Patient verbalizing anxiety secondary to pain. . (Paradise Franco) Diagnostic Tests Laboratory Laboratory Tests Test 05/15/16 05/15/16 05/15/16 05/15/16 13:30 15:51 17:47 20:20 Nasal Screen MRSA (PCR) NEGATIVE (NEGATIVE) Troponin I 0.05 NG/ML 0.05 NG/ML 0.04 NG/ML (0.02-0.05) (0.02-0.05) (0.02-0.05) Test 05/15/16 05/16/16 05/16/16 05/16/16 21:47 06:02 17:00 22:55 Troponin I 0.04 NG/ML (0.02-0.05) White Blood Count 8.0 TH/MM3 (4.0-11.0) Red Blood Count 3.47 MIL/MM3 (4.00-5.30) Hemoglobin 10.8 GM/DL 10.2 GM/DL (11.6-15.3) (11.6-15.3) Hematocrit 32.7 % 30.1 % (35.0-46.0) (35.0-46.0) Mean Corpuscular Volume 94.2 FL (80.0-100.0) Mean Corpuscular Hemoglobin 31.2 PG (27.0-34.0) Mean Corpuscular Hemoglobin 33.1 % Concent (32.0-36.0) Red Cell Distribution Width 17.0 % (11.6-17.2) Platelet Count 276 TH/MM3 (150-450) Mean Platelet Volume 7.7 FL (7.0-11.0) Hematology Comments Sodium Level 134 MEQ/L (136-145) Potassium Level 4.8 MEQ/L (3.5-5.1) Chloride Level 95 MEQ/L (98-107) Carbon Dioxide Level 28.9 MEQ/L (21.0-32.0) Anion Gap 10 MEQ/L (5-15) Blood Urea Nitrogen 34 MG/DL (7-18) Creatinine 4.88 MG/DL (0.50-1.00) Estimat Glomerular Filtration 10 ML/MIN (>89) Rate Random Glucose 75 MG/DL (74-106) Calcium Level 9.4 MG/DL (8.5-10.1) Blood Type O NEGATIVE Antibody Screen NEGATIVE Crossmatch Leukocyte-Reduced Red Blood Cells Blood Bank Comment Test 05/17/16 05/17/16 05/17/16 05/17/16 04:45 07:00 12:23 15:00 White Blood Count 12.7 TH/MM3 11.9 TH/MM3 16.0 TH/MM3 (4.0-11.0) (4.0-11.0) (4.0-11.0) Red Blood Count 2.89 MIL/MM3 2.95 MIL/MM3 2.83 MIL/MM3 (4.00-5.30) (4.00-5.30) (4.00-5.30) Hemoglobin 9.2 GM/DL 9.3 GM/DL 8.9 GM/DL (11.6-15.3) (11.6-15.3) (11.6-15.3) Hematocrit 26.9 % 27.7 % 26.3 % (35.0-46.0) (35.0-46.0) (35.0-46.0) Mean Corpuscular Volume 93.1 FL 93.9 FL 92.9 FL (80.0-100.0) (80.0-100.0) (80.0-100.0) Mean Corpuscular Hemoglobin 31.9 PG 31.5 PG 31.3 PG (27.0-34.0) (27.0-34.0) (27.0-34.0) Mean Corpuscular Hemoglobin 34.3 % 33.5 % 33.7 % Concent (32.0-36.0) (32.0-36.0) (32.0-36.0) Red Cell Distribution Width 16.0 % 16.5 % 16.6 % (11.6-17.2) (11.6-17.2) (11.6-17.2) Platelet Count 5 TH/MM3 8 TH/MM3 19 TH/MM3 (150-450) (150-450) (150-450) Mean Platelet Volume 10.0 FL 9.3 FL 8.8 FL (7.0-11.0) (7.0-11.0) (7.0-11.0) Neutrophils (%) (Auto) 85.9 % 91.0 % 90.2 % (16.0-70.0) (16.0-70.0) (16.0-70.0) Lymphocytes (%) (Auto) 5.9 % 4.5 % 5.0 % (9.0-44.0) (9.0-44.0) (9.0-44.0) Monocytes (%) (Auto) 6.1 % (0.0-8.0) 2.3 % (0.0-8.0) 4.6 % (0.0-8.0) Eosinophils (%) (Auto) 1.7 % (0.0-4.0) 1.9 % (0.0-4.0) 0.1 % (0.0-4.0) Basophils (%) (Auto) 0.4 % (0.0-2.0) 0.3 % (0.0-2.0) 0.1 % (0.0-2.0) Neutrophils # (Auto) 10.9 TH/MM3 10.8 TH/MM3 14.4 TH/MM3 (1.8-7.7) (1.8-7.7) (1.8-7.7) Lymphocytes # (Auto) 0.7 TH/MM3 0.5 TH/MM3 0.8 TH/MM3 (1.0-4.8) (1.0-4.8) (1.0-4.8) Monocytes # (Auto) 0.8 TH/MM3 0.3 TH/MM3 0.7 TH/MM3 (0-0.9) (0-0.9) (0-0.9) Eosinophils # (Auto) 0.2 TH/MM3 0.2 TH/MM3 0.0 TH/MM3 (0-0.4) (0-0.4) (0-0.4) Basophils # (Auto) 0.1 TH/MM3 0.0 TH/MM3 0.0 TH/MM3 (0-0.2) (0-0.2) (0-0.2) CBC Comment AUTO DIFF AUTO DIFF AUTO DIFF Differential Comment AUTO DIFF AUTO DIFF AUTO DIFF CONFIRMED CONFIRMED CONFIRMED Platelet Estimate RARE (NORMAL) RARE (NORMAL) RARE (NORMAL) Platelet Morphology Comment NORMAL NORMAL NORMAL (NORMAL) (NORMAL) (NORMAL) Acanthocytes OCC (NORMAL) OCC (NORMAL) Sodium Level 134 MEQ/L (136-145) Potassium Level 5.3 MEQ/L (3.5-5.1) Chloride Level 96 MEQ/L (98-107) Carbon Dioxide Level 28.0 MEQ/L (21.0-32.0) Anion Gap 10 MEQ/L (5-15) Blood Urea Nitrogen 47 MG/DL (7-18) Creatinine 5.41 MG/DL (0.50-1.00) Estimat Glomerular Filtration 9 ML/MIN (>89) Rate Random Glucose 88 MG/DL (74-106) Calcium Level 8.6 MG/DL (8.5-10.1) Magnesium Level 2.4 MG/DL (1.5-2.5) Total Creatine Kinase 363 U/L (26-192) Creatine Kinase MB 36.9 NG/ML (0.5-3.6) Creatine Kinase MB % 10.2 % (0.0-4.0) Ovalocytes 1+ (NORMAL) Blood Bank Comment Lactate Dehydrogenase 311 U/L (84-246) Troponin I 18.20 NG/ML (0.02-0.05) Test 05/17/16 05/17/16 05/17/16 05/18/16 16:13 18:00 20:25 05:11 Blood Type O NEGATIVE Crossmatch Leukocyte-Reduced Red Blood Cells Blood Bank Comment Troponin I 18.30 NG/ML 15.60 NG/ML (0.02-0.05) (0.02-0.05) White Blood Count 8.5 TH/MM3 (4.0-11.0) Red Blood Count 3.02 MIL/MM3 (4.00-5.30) Hemoglobin 9.2 GM/DL (11.6-15.3) Hematocrit 26.6 % (35.0-46.0) Mean Corpuscular Volume 88.0 FL (80.0-100.0) Mean Corpuscular Hemoglobin 30.4 PG (27.0-34.0) Mean Corpuscular Hemoglobin 34.6 % Concent (32.0-36.0) Red Cell Distribution Width 21.5 % (11.6-17.2) Platelet Count 30 TH/MM3 (150-450) Mean Platelet Volume 10.4 FL (7.0-11.0) Neutrophils (%) (Auto) 87.9 % (16.0-70.0) Lymphocytes (%) (Auto) 8.4 % (9.0-44.0) Monocytes (%) (Auto) 3.6 % (0.0-8.0) Eosinophils (%) (Auto) 0.0 % (0.0-4.0) Basophils (%) (Auto) 0.1 % (0.0-2.0) Neutrophils # (Auto) 7.5 TH/MM3 (1.8-7.7) Lymphocytes # (Auto) 0.7 TH/MM3 (1.0-4.8) Monocytes # (Auto) 0.3 TH/MM3 (0-0.9) Eosinophils # (Auto) 0.0 TH/MM3 (0-0.4) Basophils # (Auto) 0.0 TH/MM3 (0-0.2) CBC Comment AUTO DIFF Differential Comment AUTO DIFF CONFIRMED Platelet Estimate LOW (NORMAL) Platelet Morphology Comment NORMAL (NORMAL) Sodium Level 132 MEQ/L (136-145) Potassium Level 4.9 MEQ/L (3.5-5.1) Chloride Level 96 MEQ/L (98-107) Carbon Dioxide Level 27.5 MEQ/L (21.0-32.0) Anion Gap 9 MEQ/L (5-15) Blood Urea Nitrogen 46 MG/DL (7-18) Creatinine 4.84 MG/DL (0.50-1.00) Estimat Glomerular Filtration 10 ML/MIN (>89) Rate Random Glucose 129 MG/DL (74-106) Calcium Level 9.1 MG/DL (8.5-10.1) Total Bilirubin 0.5 MG/DL (0.2-1.0) Aspartate Amino Transf 57 U/L (15-37) (AST/SGOT) Alanine Aminotransferase 25 U/L (10-53) (ALT/SGPT) Alkaline Phosphatase 84 U/L (45-117) Total Protein 6.3 GM/DL (6.4-8.2) Albumin 2.9 GM/DL (3.4-5.0) . (Paradise Franco) Result Diagram: 05/18/16 0511 05/18/16 0511 Imaging Last 72 hours Impressions Chest X-Ray 05/17/16 0000 Signed Impressions: Service Date/Time: Tuesday, May 17, 2016 07:09 - CONCLUSION: 1. Suspected trace bilateral pleural effusions. 2. Large hiatal hernia with associated compressive atelectasis in the left lower lobe. This is a stable finding. Tristian Hdz MD . Procedures 05/16/16: Cardiac catheterization . (Paradise Franco) Patient/Family Conference Family Conference Location: Bedside, Telephone Issues Discussed: * Palliative care role, purpose, approach * Additional medical, psychosocial, and spiritual history * Patients general health, functional status, and cognitive changes in the months leading up to the current hospitalization * Patient/family understanding of the current medical problems * Patient/family understanding of prognosis * Patients goals of care as best understood from advance directives and/or conversations and/or values * Current medical treatment options and benefits/burdens of those options * Likely scenarios comparing ongoing aggressive care with a transition to comfort measures only * Questions answered to the best of my ability * Palliative care contact information provided . (Vesely,Paradise H. STARCH TREATING ASSISTANT) Assessment and Plan Disease Oriented Problem List: (1) NSTEMI (non-ST elevated myocardial infarction) (2) COPD (chronic obstructive pulmonary disease) (3) Hyponatremia (4) Thrombocytopenia (5) Paroxysmal atrial fibrillation (6) Hypertension (7) CAD (coronary artery disease) (8) Unstable angina (9) ESRD (end stage renal disease) (10) Murmur Symptom Scale: (1) Anxiety 0-10 Scale: Unable to quantify Comment: Patient verbalizing anxiety secondary to uncontrolled pain. (2) Pain 0-10 Scale: Unable to quantify Comment: Patient reporting midsternal chest pain rated 10/6, nonradiating. (3) Dyspnea Comment: Oxygen saturations in the high 90s on 2L via nasal cannula. Patient having dyspnea with conversation. . Pertinent Non-Medical Issues Psychosocial: Ms. Meehan was born in [place]. 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 Ms. 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 Patient was twice. She her first after 18 years. Her second recently, they were for 9 years. He was a air conditioning mechanic industrial, she describes her second as ' the most wonderful man". She has 2 adult adopted children. A daughter, Maureen, who lives locally. She also has a son, Marty, but they are not close. Spiritual: Patient considers herself spiritual, her second was air conditioning mechanic industrial. She refused water pipe installer visits. Legal: Patient's daughter, Maureen Sorensen, is designated as the health care surrogate. Ethical issues impacting care: Patient is capacitated at the time of my visit. She demonstrates understanding of her illness and the ability to weight benefits and burdens of treatment options. . Important Contacts Florentin Sorensen, daughter: [phone] . Prognosis Patient with extensive CAD s/p cardiac catheterizations in April and May of this year with stent placement. Patient's most recent cardiac catheterization was complicated by a PEA arrest and hypoxemia requiring ACLS and intubation as well as mechanical ventilation. Patient hospitalization complicated by severe thrombocytopenia for which hematology was consulted - and thought was related to restriction of Aggrastat during the procedure. Patient is not a candidate for further aggressive interventions at this time. Hospice care has been recommended. . Code Status: No Code Plan * NO CODE * Decision-making: Patient is capacitated at the time of my visit. She demonstrates understanding of her illness and the ability to weigh the benefits and burdens of treatment options. Patient designated her daughter, Maureen Sorensen , as her health care surrogate on 05/18/16. * Goals: Symptom management of midsternal chest pain rated 6/10, nonradiating. Patient stating she does not want hospice again upon discharge. * Discussed with Dr. Carr and patient's nurse, Rigo. * Symptom managementpain: Patient reporting midsternal chest pain rated 10/6, nonradiating. Patient has severe allergies to Morphine and Dilaudid. Receiving PRN tramadol. Orders placed for 1G IV acetaminophen 1 and PRN oxycodone q4 hours PRN. * Palliative care contact information provided to both patient and daughter. * Spoke with patient's daughter to introduce the Palliative Care team. Update provided ob the patient's clinical condition. Discussed patient's verbalized wish NOT to be readmitted to hospice upon discharge. * Palliative care will continue to follow this patient throughout her hospitalization to establish trust, assist with symptom management and clarification of medical treatment goals. . . (Paradise Franco) Thank you for the opportunity to participate in the care of Ms. Meehan. . (Paradise Franco) Attestation To help prompt me to consider important information that might be impacting today's encounter and assessment, information from prior notes written by myself or my colleagues may have been "brought forward" into today's note. My signature on this note, however, is an attestation that I personally performed the exam, history, and/or decision-making noted today, and, unless otherwise indicated, the interactions with patient, family, and staff as well as the review of records all occurred today. I also attest that the listed assessment and stated plan reflect my best clinical judgment today based on the combination of historical information, prior notes, and today's exam/ interactions. When time spent is documented, it refers only to time spent today by the signer, or if indicated, combined time spent today by collaborating physician/nurse practitioner. . (Paradise Franco) Collaborating MD Comments . Chart reviewed. Cased discussed with palliative care STARCH TREATING ASSISTANT. Above STARCH TREATING ASSISTANT note reviewed and I concur. . (Tanmay Ojeda MD) Paradise Franco [facility] May 18, 2016 12:41 Tanmay Ojeda MD July 03, 2016 15:23
--- NOTE | 2016-05-18 17:16 | EKG ---
Date Performed: 05/18/2016 Time Performed: 16:30:59 PTAGE: 85 years EKG: Sinus rhythm WITH OCCASIONAL VENTRICULAR PREMATURE COMPLEXES LEFT VENTRICULAR HYPERTROPHY AND ST-T CHANGE ABNORMA L ECG PREVIOUS TRACING : 05/17/2016 15.22 No significant change from previous tracing noted. DOCTOR: Emeterio Patel Interpretating Date/Time 05/18/2016 17:15:16
--- NOTE | 2016-05-18 18:03 | RADRPT ---
EXAM DATE/TIME: 05/18/2016 17:02 [place] COMPARISON: CTA THORACIC ABDOMINAL AORTA W 3D RECON, May 10, 2016, 15:13. CHEST SINGLE AP, May 17, 2016, 7:0 9. INDICATIONS : Shortness of breath. MEDICAL HISTORY : Cardiovascular disease. Hypertension. Renal failure, chronic. SURGICAL HISTORY : Appendectomy. ENCOUNTER: Subsequent ACUITY: 2 days PAIN SCORE: 0/10 LOCATION: Bilateral chest FINDINGS: Chest is stable with large hiatal hernia and mild bibasilar consolidative changes. Cardiac contours a re stable with mild cardiac enlargement. Prominent vascular tortuosity producing right paratracheal p rominence. CONCLUSION: Stable chest appearance Tristian Durant MD on May 18, 2016 at 18:00 Board Certified Radiologist. This report was verified electronically.
--- NOTE | 2016-05-18 22:20 | EKG ---
Date Performed: 05/18/2016 Time Performed: 21:20:49 PTAGE: 85 years EKG: Sinus rhythm WITH OCCASIONAL VENTRICULAR AND SUPRAVENTRICULAR PREMATURE COMPLEXES LEFT AXIS DEVIATION LEFT VENTRI CULAR HYPERTROPHY NONSPECIFIC T WAVE ABNORMALITIES NONSPECIFIC INTRAVENTRICULAR CONDUCTION DELAY PREVIOUS TRACING : 05/18/2016 16.30 No significant change from previous tracing noted. DOCTOR: Emeterio Patel Interpretating Date/Time 05/18/2016 22:19:16
[2016-05-19] VITALS (15 sets, daily range): BP systolic 55–153; BP diastolic 40–76; PULSE 64–80; RESP 16–20; TEMP 98.2–99.6; O2SAT 95–100
[2016-05-19] MEDS: NITROGLYCERIN 2% OINT 1 GM PACKET TOPICAL SCH ×4 (03:57→20:27)
[2016-05-19] MEDS: RESP: ALBUTEROL 2.5 MG/IPRATROPIUM 0.5 MG NEB (SCH) NEB ×4 (04:00→20:00)
[2016-05-19] MEDS: INSULIN ASPART SUPPLEMENTAL SCALE SQ SCH ×4 (06:00→18:00)
[2016-05-19 06:20] LABS: AUTOMATED NEUTROPHIL # 10.4 TH/MM3 (1.8-7.7); BASOPHIL # 0.1 TH/MM3 (0-0.2); BASOPHIL % 0.4 % (0.0-2.0); EOSINOPHIL # 0.2 TH/MM3 (0-0.4); EOSINOPHIL % 1.7 % (0.0-4.0); HEMATOCRIT 26.9 % (35.0-46.0); LYMPH % 10.2 % (9.0-44.0); LYMPHOCYTE # 1.3 TH/MM3 (1.0-4.8); MEAN CORPUSCULAR HEMOGLOBIN 30.3 PG (27.0-34.0); MONO % 5.6 % (0.0-8.0); NEUT % 82.1 % (16.0-70.0); PLATELET COUNT 20 TH/MM3 (150-450); RED BLOOD COUNT 3.02 MIL/MM3 (4.00-5.30); WHITE BLOOD COUNT 12.6 TH/MM3 (4.0-11.0)
[2016-05-19 06:31] LABS: HEMO FLAGS AUTO DIFF
[2016-05-19] MEDS: NITROGLYCERIN 0.4 MG SL 25 TABS/BTL SL PRN ×6 (06:40→18:56)
--- NOTE | 2016-05-19 07:12 | EKG ---
Date Performed: 05/17/2016 Time Performed: 15:22:56 PTAGE: 85 years EKG: Sinus rhythm . Possible left anterior fascicular block Left ventricular hypertrophy Inferior/lateral T wave change s are probably due to ventricular hypertrophy Abnormal ECG Compared to PREVIOUS TRACING , the rhythm is now sinus. PREVIOUS TRACIN05/17/2016 04.30 DOCTOR: James Salas Interpretating Date/Time 05/19/2016 07:11:58
[2016-05-19 07:40] LABS: ACANTHOCYTES OCC (NORMAL); KERATOCYTES OCC (NORMAL); PLATELET ESTIMATE SMEAR LOW (NORMAL); PLATELET MORPHOLOGY NORMAL (NORMAL); SCAN/DIFF AUTO DIFF CONFIRMED
--- NOTE | 2016-05-19 08:43 | PD.ONC.PN ---
Subjective Subjective Remarks No bleeding. +CP. Objective Data Date Time Temp Pulse Resp B/P Pulse Ox O2 Delivery O2 Flow Rate FiO2 05/19/16 06:00 65 05/19/16 04:00 65 05/19/16 04:00 99 Nasal Cannula 2.00 05/19/16 04:00 98.6 65 18 150/74 100 05/19/16 02:00 64 05/19/16 00:00 98.6 64 18 153/76 100 05/19/16 00:00 100 Nasal Cannula 2.00 05/19/16 00:00 64 05/18/16 22:00 68 05/18/16 21:54 100 Nasal Cannula 2.00 05/18/16 20:00 100 Nasal Cannula 2.00 05/18/16 20:00 98.6 67 18 128/70 100 05/18/16 20:00 67 05/18/16 18:00 68 05/18/16 16:00 98 Nasal Cannula 2.00 05/18/16 16:00 62 05/18/16 16:00 98.1 70 18 127/68 100 05/18/16 14:00 75 05/18/16 12:00 73 05/18/16 12:00 97.8 73 18 128/60 99 05/18/16 12:00 99 Nasal Cannula 2.00 05/18/16 10:00 98 05/19/16 05/19/16 05/19/16 07:00 15:00 23:00 Intake Total 100 ml Output Total 0 ml Balance 100 ml Result Diagram: 05/19/16 0552 05/18/16 0511 Laboratory Results Laboratory Tests Test 05/18/16 05/19/16 18:57 05:52 Total Creatine Kinase 143 U/L Troponin I 15.60 NG/ML 19.20 NG/ML White Blood Count 12.6 TH/MM3 Red Blood Count 3.02 MIL/MM3 Hemoglobin 9.2 GM/DL Hematocrit 26.9 % Mean Corpuscular Volume 89.0 FL Mean Corpuscular Hemoglobin 30.3 PG Mean Corpuscular Hemoglobin 34.0 % Concent Red Cell Distribution Width 21.0 % Platelet Count 20 TH/MM3 Mean Platelet Volume 9.1 FL Neutrophils (%) (Auto) 82.1 % Lymphocytes (%) (Auto) 10.2 % Monocytes (%) (Auto) 5.6 % Eosinophils (%) (Auto) 1.7 % Basophils (%) (Auto) 0.4 % Neutrophils # (Auto) 10.4 TH/MM3 Lymphocytes # (Auto) 1.3 TH/MM3 Monocytes # (Auto) 0.7 TH/MM3 Eosinophils # (Auto) 0.2 TH/MM3 Basophils # (Auto) 0.1 TH/MM3 CBC Comment AUTO DIFF Differential Comment AUTO DIFF CONFIRMED Platelet Estimate LOW Platelet Morphology Comment NORMAL Acanthocytes OCC Keratocytes OCC Administered Medications Medications (Trade) Dose Ordered Sig/Thierry Route PRN Reason Start Time Stop Time Status Last Admin Dose Admin Alprazolam (Xanax) 0.25 mg Q8H PRN PO ANXIETY 05/09/16 17:15 Hold 05/13/16 10:28 Carvedilol (Coreg) 12.5 mg Q12HR PO 05/09/16 21:00 05/18/16 21:09 Docusate Sodium (Colace) 100 mg BID PO 05/09/16 21:00 05/18/16 08:32 Sevelamer Carbonate (Renvela) 800 mg TID PO 05/09/16 18:00 05/18/16 12:24 Acetaminophen (Tylenol) 650 mg Q4H PRN PO TEMP > 100.4 05/09/16 17:30 05/14/16 01:11 Zolpidem Tartrate (Ambien) 5 mg HS PRN PO INSOMNIA 05/09/16 17:30 05/15/16 22:00 Megestrol Acetate (Megace Liq) 800 mg DAILY PO 05/10/16 09:00 05/18/16 08:32 Amlodipine Besylate (Norvasc) 5 mg DAILY PO 05/14/16 09:00 05/18/16 08:32 Tramadol HCl (Ultram) 50 mg Q12H PRN PO CHEST PAIN 05/14/16 10:30 05/18/16 14:52 Sodium Chloride (NS Flush) 2 ml BID .XX 05/16/16 21:00 05/18/16 21:00 Insulin Aspart (NovoLOG SUPPLEMENTAL SCALE) 1 Q6H SQ 05/17/16 06:00 05/18/16 12:00 Nitroglycerin (Nitrostat Sl) 0.4 mg Q5M PRN SL CHEST PAIN 05/17/16 15:00 05/19/16 06:40 Nitroglycerin (Nitroglycerin 2% Oint) 2 inch Q6H TOPICAL 05/17/16 16:00 05/18/16 21:10 Objective Remarks GENERAL: Well-nourished, well-developed patient.Weak SKIN: Warm and dry. HEAD: Normocephalic. EYES: No scleral icterus. No injection or drainage. NECK: Supple, trachea midline. No JVD or lymphadenopathy. LYMPHATIC: No adenopathy. CARDIOVASCULAR: Regular rate and rhythm without murmurs. RESPIRATORY: Breath sounds equal bilaterally. No accessory muscle use. GASTROINTESTINAL: Abdomen soft, non-tender, nondistended. EXTREMITIES: No cyanosis, or edema. MUSCULOSKELETAL: Adequate muscle tone. NEUROLOGICAL: No obvious focal deficit. Awake, alert, and oriented x3. PSYCHIATRIC: Appropriate mood and affect; insight and judgment normal. Assessment/Plan Assessment 1. Severe thrombocytopenia due to the Aggrastat. Her platelet count was 276,000 05/16 and dropped to 5000 after receiving Aggrastat. Peripheral smear did not show any platelet clumping. The platelet morphology appeared normal and there was significantly decreased platelet count. No significant schistocytes noted. HIT ab pending. Her hemoglobin has been stable. Aggrastat, heparin and Plavix antiplatelet agents have all been discontinued. Received 1U platelet 05/17. 05/18 platelet trended up to 30K, no bleeding noted. Will monitor her platelet count closely. She can restart antiplatelet agents after her platelet count starts trending up. 05/19 Platelet trended down to 20K. No bleeding noted. Continue to monitor. Will transfuse if any evidence of bleeding or platelet <10K. HIT ab negative. 2. Anemia due to a chronic kidney disease, hemoglobin stable. 3. Mild leukocytosis, likely leukemoid reaction. No clear evidence of infection. resolved. 4. End-stage renal disease, on hemodialysis. Recommend not to use heparin for dialysis. 5. Coronary artery disease, status post stent placement yesterday. Without the antiplatelet agents she has an increased risk of clotting the stent, but at this point she is not able to receive any antiplatelet agents due to severe thrombocytopenia. Plan Plan: 1. Monitor CBC. No transfusion needed today.. 2. Can restart antiplatelet agents when platelet >50K. Xavi Gant MD May 19, 2016 08:43
[2016-05-19] MEDS: DOCUSATE SODIUM 100 MG CAP PO SCH ×2 (08:48→20:28)
[2016-05-19] MEDS: amLODIPine BESYLATE 5 MG TAB PO SCH (08:48)
[2016-05-19] MEDS: CARVEDILOL 12.5 MG TAB PO SCH ×2 (08:48→20:28)
[2016-05-19] MEDS: MEGESTROL ACETATE SUSP 400 MG/10 ML CUP PO SCH (08:49)
[2016-05-19] MEDS: SODIUM CHLORIDE 0.9% FLUSH 10 ML FLUSH SCH ×2 (09:00→20:28)
[2016-05-19 09:14] LABS: BICARBONATE 29.2 MEQ/L (21.0-32.0); POTASSIUM 5.7 MEQ/L (3.5-5.1)
--- NOTE | 2016-05-19 09:35 | EKG ---
Date Performed: 05/19/2016 Time Performed: 07:12:02 PTAGE: 85 years EKG: Sinus rhythm WITH OCCASIONAL VENTRICULAR PREMATURE COMPLEXES LEFT AXIS DEVIATION LEFT VENTRICULAR HYPERTROPHY AND ST-T CHANGE POOR R WAVE PROGRESSION NONSPECIFIC INTRAVENTRICULAR CONDUCTION DELAY ABNORMAL ECG PREVIOUS TRACING : 05/18/2016 21.20 No significant change from previous tracing noted. DOCTOR: Emeterio Patel Interpretating Date/Time 05/19/2016 09:35:16
[2016-05-19] MEDS ORDERED: SODIUM CHLOR 0.9% 1000 ML INJ 1,000 ML IV PRN ×3 (10:08)
--- NOTE | 2016-05-19 10:13 | HHI.NPPN ---
Subjective General Problems: Anemia Renal Failure: Chronic, End Stage Renal Disease Interval History Seen during dialysis. She still is having chest pain. Off Nitro drip. (Lelo Chong) Review of Systems General Constitutional: Fatigue (Lelo Chong) Cardiovascular Cardiac: Chest Pain (Lelo Chong) Objective Data Data 05/18/16 05/19/16 19:00 07:00 Intake Total 621 ml 500 ml Output Total 0 ml 0 ml Balance 621 ml 500 ml Intake Oral 600 ml 500 ml IV Total 21 ml 0 ml Output Urine Total 0 ml 0 ml # Bowel Movements 0 0 Vital Signs Date Time Temp Pulse Resp B/P Pulse Ox O2 Delivery O2 Flow Rate FiO2 05/19/16 09:14 95 Nasal Cannula 2.00 05/19/16 08:00 68 05/19/16 08:00 98.9 68 20 150/76 97 05/19/16 08:00 97 Nasal Cannula 2.00 05/19/16 06:00 65 05/19/16 04:00 65 05/19/16 04:00 99 Nasal Cannula 2.00 05/19/16 04:00 98.6 65 18 150/74 100 05/19/16 02:00 64 05/19/16 00:00 98.6 64 18 153/76 100 05/19/16 00:00 100 Nasal Cannula 2.00 05/19/16 00:00 64 05/18/16 22:00 68 05/18/16 21:54 100 Nasal Cannula 2.00 05/18/16 20:00 100 Nasal Cannula 2.00 05/18/16 20:00 98.6 67 18 128/70 100 05/18/16 20:00 67 05/18/16 18:00 68 05/18/16 16:00 98 Nasal Cannula 2.00 05/18/16 16:00 62 05/18/16 16:00 98.1 70 18 127/68 100 05/18/16 14:00 75 05/18/16 12:00 73 05/18/16 12:00 97.8 73 18 128/60 99 05/18/16 12:00 99 Nasal Cannula 2.00 (Lelo Chong) -: 05/19/16 0552 05/19/16 0823 Physical Exam General Appearance: Well Developed, Well Nourished, No Acute Distress, Comfortable, Malnourished (Lelo Chong) Eyes Eye Exam: Pupils Equal (Lelo Chong) Throat Throat Exam: Oral Mucosa [place] & Moist (Lelo Chong) Neck Neck Exam: Neck Supple (Lelo Chong) Pulmonary Resp Exam: Clear Bilaterally, Breath Sounds Equal, No Distress (Lelo Chong) Cardiology CV Exam: Regular, Normal Sinus Rhythm, Good Perfusion, Dyspnea on Exertion ( Lelo Chong) Gastrointestinal/Abdomen GI Exam: Soft, Non-Tender, Bowel Sounds Present (Lelo Chong) Musculoskeletal MS Exam: Joints Intact, Normal Tone (Lelo Chong) Integumentary Skin Exam: Clear, Warm, Dry, Intact (Lelo Chong) Extremeties Extremities Exam: No Edema, Pedal Pulses Palpable Extremeties Remarks right AVF, accessed during HD (Lelo Chong) Neurologic Neuro Exam: Alert, Awake, Oriented, Speech Clear, Moving All Extremities ( Lelo Chong) Assessment/Plan Discussed Condition With: Patient Assessment Summary: Anemia of CKD, CHF, Hypertension, End Stage Renal Disease Electrolyte Assessment: Hyperkalemia Problem List: (1) ESRD (end stage renal disease) Plan: HD MWF, seen during dialysis today on a 2K, 350 BFR, goal 3L Volume status stable Hyperkalemia was corrected no acute renal concerns avoid IVF, gadolinium functioning AVF for dialysis she has existing outpatient HD arrangements, can be discharged when cleared by all consulting physicians (2) CAD (coronary artery disease) Plan: adjust UF with dialysis as tolerated/required cardiology following sp cath with stent to LAD, EF 45% no further PCI per Dr. Valentin she was evaluated by palliative , declined hospice (3) Anemia Plan: on epogen with HD Hb stable goal Hb >10 transfuse PRN (4) Atrial fibrillation Plan: Rate controlled follow with cardiology (5) Thrombocytopenia Plan: acute antiplatelets have been hold no heparin with HD goal 50K, can resume antiplatelets then hematology has evaluated monitor for bleeding (Lelo Chong) Plan patient was seen and examined. Agree with above assessment and plan. Patient developed hypotension after dialysis, AVF recannulated and 1 liter of IVF given back. Prognosis is poor. Hematology note was reviewed. Thrombocytopenia thought to be due to Aggrostat. (Roland Miramontes MD) Problem Qualifiers (1) CAD (coronary artery disease): Qualified Code: I25.10 - Coronary artery disease due to calcified coronary lesion Lelo Chong May 19, 2016 10:12 Roland Miramontes MD May 19, 2016 15:17
[2016-05-19] MEDS ORDERED: GELATIN 12 MM/7 MM FOAM TOP PRN (10:15)
[2016-05-19] MEDS ORDERED: ONDANSETRON HCL 4 MG/2 ML VIAL IV PRN (10:15)
[2016-05-19] MEDS ORDERED: MANNITOL 12.5 GM/50 ML VIAL IV PRN (10:15)
[2016-05-19] MEDS ORDERED: NITROGLYCERIN 0.4 MG SL 25 TABS/BTL SL PRN (10:15)
[2016-05-19] MEDS ORDERED: diphenhydrAMINE HCL 25 MG CAP PO PRN (10:15)
[2016-05-19] MEDS ORDERED: cloNIDine HCL 0.1 MG TAB PO PRN (10:15)
[2016-05-19] MEDS ORDERED: SODIUM CHLORIDE 0.9% FLUSH 10 ML FLUSH IV FLUSH PRN (10:15)
[2016-05-19] MEDS ORDERED: GENTAMICIN SULFATE (DIALYSIS USE ONLY) 20 MG/2 ML VIAL IV PRN (10:15)
[2016-05-19] MEDS: SEVELAMER CARBONATE 800 MG TAB PO SCH ×3 (10:26→17:56)
--- NOTE | 2016-05-19 11:00 | PD.CARD.PN ---
Subjective Subjective Remarks seems slightly confused, still having intermittent chest pain Objective Vital Signs / I&O Vital Signs Date Time Temp Pulse Resp B/P Pulse Ox O2 Delivery O2 Flow Rate FiO2 05/19/16 09:14 95 Nasal Cannula 2.00 05/19/16 08:00 68 05/19/16 08:00 98.9 68 20 150/76 97 05/19/16 08:00 97 Nasal Cannula 2.00 05/19/16 06:00 65 05/19/16 04:00 65 05/19/16 04:00 99 Nasal Cannula 2.00 05/19/16 04:00 98.6 65 18 150/74 100 05/19/16 02:00 64 05/19/16 00:00 98.6 64 18 153/76 100 05/19/16 00:00 100 Nasal Cannula 2.00 05/19/16 00:00 64 05/18/16 22:00 68 05/18/16 21:54 100 Nasal Cannula 2.00 05/18/16 20:00 100 Nasal Cannula 2.00 05/18/16 20:00 98.6 67 18 128/70 100 05/18/16 20:00 67 05/18/16 18:00 68 05/18/16 16:00 98 Nasal Cannula 2.00 05/18/16 16:00 62 05/18/16 16:00 98.1 70 18 127/68 100 05/18/16 14:00 75 05/18/16 12:00 73 05/18/16 12:00 97.8 73 18 128/60 99 05/18/16 12:00 99 Nasal Cannula 2.00 I/O 05/18/16 05/18/16 05/18/16 05/19/16 05/19/16 05/19/16 07:00 15:00 23:00 07:00 15:00 23:00 Intake Total 300 ml 621 ml 400 ml 100 ml Output Total 0 ml 0 ml 0 ml Balance 300 ml 621 ml 400 ml 100 ml Intake Oral 300 ml 600 ml 400 ml 100 ml IV Total 21 ml 0 ml 0 ml Output Urine Total 0 ml 0 ml 0 ml # Bowel Movements 0 0 0 Physical Exam GENERAL: SKIN: Warm and dry. HEAD: Normocephalic. EYES: No scleral icterus. No injection or drainage. NECK: Supple, trachea midline. No JVD or lymphadenopathy. CARDIOVASCULAR: Regular rate and rhythm without murmurs, gallops, or rubs. RESPIRATORY: Breath sounds equal bilaterally. No accessory muscle use. GASTROINTESTINAL: Abdomen soft, non-tender, nondistended. MUSCULOSKELETAL: No cyanosis, or edema. BACK: Nontender without obvious deformity. No CVA tenderness. Laboratory Laboratory Tests Test 05/18/16 05/19/16 05/19/16 18:57 05:52 08:23 Total Creatine Kinase 143 U/L 187 U/L Troponin I 15.60 NG/ML 19.20 NG/ML 20.90 NG/ML White Blood Count 12.6 TH/MM3 Red Blood Count 3.02 MIL/MM3 Hemoglobin 9.2 GM/DL Hematocrit 26.9 % Mean Corpuscular Volume 89.0 FL Mean Corpuscular Hemoglobin 30.3 PG Mean Corpuscular Hemoglobin 34.0 % Concent Red Cell Distribution Width 21.0 % Platelet Count 20 TH/MM3 Mean Platelet Volume 9.1 FL Neutrophils (%) (Auto) 82.1 % Lymphocytes (%) (Auto) 10.2 % Monocytes (%) (Auto) 5.6 % Eosinophils (%) (Auto) 1.7 % Basophils (%) (Auto) 0.4 % Neutrophils # (Auto) 10.4 TH/MM3 Lymphocytes # (Auto) 1.3 TH/MM3 Monocytes # (Auto) 0.7 TH/MM3 Eosinophils # (Auto) 0.2 TH/MM3 Basophils # (Auto) 0.1 TH/MM3 CBC Comment AUTO DIFF Differential Comment AUTO DIFF CONFIRMED Platelet Estimate LOW Platelet Morphology Comment NORMAL Acanthocytes OCC Keratocytes OCC Sodium Level 133 MEQ/L Potassium Level 5.7 MEQ/L Chloride Level 94 MEQ/L Carbon Dioxide Level 29.2 MEQ/L Anion Gap 10 MEQ/L Blood Urea Nitrogen 58 MG/DL Creatinine 6.03 MG/DL Estimat Glomerular Filtration 8 ML/MIN Rate Random Glucose 79 MG/DL Calcium Level 8.8 MG/DL Assessment and Plan Problem List: (1) Atrial fibrillation, new onset (2) Aortic stenosis (3) Hypertension (4) Hyperlipidemia (5) Depression (6) CAD (coronary artery disease) (7) Chest pain (8) Cardiomyopathy Assessment and Plan 1.) CAD - s/p pci bms mid lad, small diagonal vessel jailed but patent, dapt held due to thrombocytopenia; restart dapt when plt>50; chest pain due to jailed 90% ostial small dx vessel and/or noncardiac, do not thonk this is a life threatening stenosis or that requires admission, o/w patient is completely revascularized 2.) PAF - in nsr, assymptomatic, eliquis held d/t thrombocytopenia 3.) PEA - suspect d/t apnea from fentanyl and/or versed, trop elevated due to pea and esrd, trending down pci; patient is hospice, do not rec recurrent cath due to high risk d/t thrombocytopenia, pea from conscience sedation from fentanyl/versed and inability to access diagonal vessel d/t vessel tortuosity and 90 degreee angle off lad; rec palliative care consult, prn ntg 4.) Ok to dc from cv standpoint, f/u with me hellen; rec hospice Problem Qualifiers (1) Hypertension: Qualified Code: I10 - Essential hypertension (2) CAD (coronary artery disease): Qualified Code: I25.10 - Coronary artery disease due to calcified coronary lesion (3) Chest pain: Qualified Code: R07.2 - Precordial pain Zohaib Valentin MD May 19, 2016 11:00
--- NOTE | 2016-05-19 14:22 | HHI.PR ---
Subjective Remarks Deferred entry - patient seen earlier at 11 am Patient seen during dialysis denies cp/sob denies cough Objective Vitals Vital Signs Date Time Temp Pulse Resp B/P Pulse Ox O2 Delivery O2 Flow Rate FiO2 05/19/16 12:45 148/76 05/19/16 12:30 55/40 05/19/16 12:00 68 05/19/16 12:00 98 Nasal Cannula 2.00 05/19/16 12:00 98.2 68 16 152/76 05/19/16 10:00 66 05/19/16 09:14 95 Nasal Cannula 2.00 05/19/16 08:00 68 05/19/16 08:00 98.9 68 20 150/76 97 05/19/16 08:00 97 Nasal Cannula 2.00 05/19/16 06:00 65 05/19/16 04:00 65 05/19/16 04:00 99 Nasal Cannula 2.00 05/19/16 04:00 98.6 65 18 150/74 100 05/19/16 02:00 64 05/19/16 00:00 98.6 64 18 153/76 100 05/19/16 00:00 100 Nasal Cannula 2.00 05/19/16 00:00 64 05/18/16 22:00 68 05/18/16 21:54 100 Nasal Cannula 2.00 05/18/16 20:00 100 Nasal Cannula 2.00 05/18/16 20:00 98.6 67 18 128/70 100 05/18/16 20:00 67 05/18/16 18:00 68 05/18/16 16:00 98 Nasal Cannula 2.00 05/18/16 16:00 62 05/18/16 16:00 98.1 70 18 127/68 100 I/O 05/18/16 05/18/16 05/18/16 05/19/16 05/19/16 05/19/16 07:00 15:00 23:00 07:00 15:00 23:00 Intake Total 300 ml 621 ml 400 ml 100 ml Output Total 0 ml 0 ml 0 ml 2000 ml Balance 300 ml 621 ml 400 ml 100 ml -2000 ml Intake Oral 300 ml 600 ml 400 ml 100 ml IV Total 21 ml 0 ml 0 ml Output Urine Total 0 ml 0 ml 0 ml Hemodialysis 2000 ml # Bowel Movements 0 0 0 Result Diagram: 05/19/16 0552 05/19/16 0823 Imaging Last Impressions Chest X-Ray 05/18/16 0000 Signed Impressions: Service Date/Time: May 17:02 - CONCLUSION: Stable chest appearance Tristian Durant MD Aorta CTA 05/10/16 0000 Signed Impressions: Service Date/Time: Tuesday, May 10, 2016 15:13 - CONCLUSION: 1. There is no evidence of aortic dissection. The widening of the mediastinum seen on the chest x-ray appears to represent a combination of pleural fluid and atelectatic lung along the descending thoracic aorta. 2. There are COPD changes within the pulmonary parenchyma. 3. There are small bilateral effusions. 4. The abdominal aorta and iliac vessels are intact. Yehuda Hanna MD Objective Remarks GENERAL: Patient with mild dyspnea and mild distress due to chest pain. Deneis SKIN: Warm and dry. HEAD: Atraumatic. Normocephalic. EYES: Pupils equal and round. No scleral icterus. No injection or drainage. ENT: No nasal bleeding or discharge. Mucous membranes pink and moist. NECK: Trachea midline. No JVD. CARDIOVASCULAR: Regular rate and rhythm. systolic II/ murmur best hear in the 2nd left parasternal border. RESPIRATORY: No accessory muscle use. Clear to auscultation. Breath sounds equal bilaterally. GASTROINTESTINAL: Abdomen soft, non-tender, nondistended. Hepatic and splenic margins not palpable. MUSCULOSKELETAL: Extremities without clubbing, cyanosis, or edema. No obvious deformities. NEUROLOGICAL: Awake and alert. No obvious cranial nerve deficits. Motor grossly within normal limits. Five out of 5 muscle strength in the arms and legs. Normal speech. PSYCHIATRIC: Appropriate mood and affect; insight and judgment normal. Procedures Cardiac Catheterization on 05/16/16 - as per report bare metal stent placed to the mid LAD. Intubation and mechanical ventilation due to PEA arrest after Cardiac Catheterization. Medications and IVs Current Medications Medications (Trade) Dose Ordered Sig/Thierry Route Start Time Stop Time Status Last Admin (Xanax) 0.25 mg Q8H PRN PO 05/09/16 17:15 Hold 05/13/16 10:28 (Coreg) 12.5 mg Q12HR PO 05/09/16 21:00 05/19/16 08:48 (Colace) 100 mg BID PO 05/09/16 21:00 05/19/16 08:48 (Renvela) 800 mg TID PO 05/09/16 18:00 05/19/16 10:26 (Xalatan 0.005% Opth Soln) 1 drop HS PRN EACH EYE 05/09/16 17:30 (Tylenol) 650 mg Q4H PRN PO 05/09/16 17:30 05/14/16 01:11 (Zofran Inj) 4 mg Q6H PRN IVP 05/09/16 17:30 (Dulcolax Supp) 10 mg DAILY PRN RECTAL 05/09/16 17:30 (Ambien) 5 mg HS PRN PO 05/09/16 17:30 05/15/16 22:00 (Narcan Inj) 0.4 mg UNSCH PRN IV 05/09/16 17:30 (Megace Liq) 800 mg DAILY PO 05/10/16 09:00 05/19/16 08:49 (Norvasc) 5 mg DAILY PO 05/14/16 09:00 05/19/16 08:48 (Ultram) 50 mg Q12H PRN PO 05/14/16 10:30 05/18/16 14:52 (NS Flush) 2 ml UNSCH PRN .XX 05/16/16 15:00 (NS Flush) 2 ml BID .XX 05/16/16 21:00 05/19/16 09:00 (Aspirin Chew) 162 mg DAILY PO 05/17/16 09:00 Hold (D50w (Vial) Inj) 25 ml UNSCH PRN IV PUSH 05/17/16 04:45 (Glucagon Inj) 1 mg UNSCH PRN OTHER 05/17/16 04:45 (NovoLOG SUPPLEMENTAL SCALE) 1 Q6H SQ 05/17/16 06:00 05/18/16 12:00 Nitroglycerin 0.4 mg 0.4 mg Q5M PRN SL 05/17/16 15:00 05/19/16 09:24 (Nitroglycerin-Dextrose Inj) 250 ml @ 0 mls/hr TITRATE IV 05/17/16 16:00 (Nitroglycerin 2% Oint) 2 inch Q6H TOPICAL 05/17/16 16:00 05/19/16 10:00 Oxycodone/ Acetaminophen 1 tab 1 tab Q6H PRN PO 05/18/16 16:30 Sodium Chloride 1,000 ml @ 0 mls/hr Q0M PRN IV 05/19/16 10:08 Sodium Chloride 1,000 ml @ 200 mls/hr Q5H PRN IV 05/19/16 10:08 (NS 1000 ml Inj) 1,000 ml @ 0 mls/hr Q0M PRN IV 05/19/16 10:08 (Mannitol Inj) 12.5 gm UNSCH PRN IV 05/19/16 10:15 (Albumin 25% Inj) 25 gm UNSCH PRN IV 05/19/16 10:15 (NS Flush) 5 ml UNSCH PRN IV FLUSH 05/19/16 10:15 (Gentamicin (Dialysis) Inj) 20 mg UNSCH PRN IV 05/19/16 10:15 (Zofran Inj) 4 mg UNSCH PRN IV 05/19/16 10:15 (Tylenol) 650 mg UNSCH PRN PO 05/19/16 10:15 (Benadryl) 25 mg UNSCH PRN PO 05/19/16 10:15 (Nitrostat Sl) 0.4 mg UNSCH PRN SL 05/19/16 10:15 (Catapres) 0.1 mg UNSCH PRN PO 05/19/16 10:15 (Epogen Inj) 10,000 units UNSCH PRN IV 05/19/16 10:15 (Gelfoam 12 Mm/7 Mm Top) 1 foam UNSCH PRN TOP 05/19/16 10:15 Urinary Catheter: No Vascular Central Line Catheter: No A/P Problem List: (1) Unstable angina ICD Code: I20.0 Status: Resolved (2) Paroxysmal atrial fibrillation ICD Code: I48.0 Status: Acute (3) Mediastinal widening ICD Code: R93.8 Status: Acute (4) COPD (chronic obstructive pulmonary disease) ICD Code: J44.9 Status: Acute (5) ESRD (end stage renal disease) ICD Code: N18.6 Status: Acute (6) Severe anemia ICD Code: D64.9 Status: Acute (7) Hypertension ICD Code: I10 Status: Acute (8) Hyponatremia ICD Code: E87.1 Status: Acute (9) Hyperkalemia ICD Code: E87.5 Status: Acute Plan: K 5.7. Management as per nephrology. Patient getting hemodialysis. Monitor BMP. (10) Change in mental status ICD Code: R41.82 Status: Acute Plan: As per RN patient having episodes of blank stare. I will order a stat head ct and an eeg to r/o seizures. (11) Hypotension ICD Code: I95.9 Status: Resolved Plan: Episodic during dialysis. BP now better. Continue to monitor vital signs. Assessment and Plan (1) Unstable angina Plan: Cardiology following. Patient status post left heart catheterization with stent placement to the LAD as per catheterization report. Patient's cardiac catheterization was complicated by a PEA arrest and hypoxemia which required ACLS and intubation as well as mechanical ventilation. Anesthesia intubated the patient. The patient had a return of spontaneous circulation. Patient was then seen in consultation by the vocational training instructor who referred the patient. The patient was extubated on 05/17/16. Her stay was also complicated by thrombus cytopenia for which hematology was consulted and thought to be secondary to Aggrenox at that time. The patient now complains of chest pain described as pressure 6/10 substernal and nonradiating. She is also mildly dyspneic. The patient is a very high risk for in-stent thrombosis since her at the platelet therapy was held due to thrombocytopenia possibly caused by Aggrastat. I will order stat EKG, cardiac enzymes, and will RX 1 gm of intravenous acetaminophen (Ofirmev). As per cardiology recommendation, Dr. Valentin does not think that this is a life-threatening chest pain and this could be due to jailed 90% ostial small dx vessel and/or noncardiacThe Dr. Valentin states that the patient is at high risk for catheterization due to low platelets. Continue as needed nitroglycerin drip. The patient has been cleared from the perivascular standpoint to be discharged. Hospice care recommended. (2) Paroxysmal atrial fibrillation Plan: On Eliquis. Continue carvedilol for rate control. Paroxysmal A. fib is rate controlled. (3) Mediastinal widening Plan: Negative CTA. (4) COPD (chronic obstructive pulmonary disease) Plan: Seems stable. Not on any inhalers. (5) ESRD (end stage renal disease) Plan: Nephrology following. Hemodialysis as per nephrology schedule on Mondays , Sunday and Sunday. Patient has been cleared by nephrology for DC. (6) Severe anemia Plan: Patient initially admitted with hemoglobin of 6.8. Status post transfusion of 2 units of packed blood cells. Continue to monitor hemoglobin. Ocult blood in feces checked and negative. Iron studies consistent with anemia of chronic disease with marrow of 24, TIBC 116, percent saturation 11.1 and 935. hemoglobin stable - 10.8 (7) Hypertension Plan: Bp somewhat on lower side. Amlodipine dose decreased to 5 mg daily. Bp now better. (8) Hyponatremia Plan: Likely due to hypervolemic hyponatremia. Sodium now 133. Patient getting hemodialysis. GI prophylaxis: Continue PPI DVT prophylaxis: SCDs, on eliquis. Discharge Planning Continue to monitor in the cardiac floor. Once ready DC to [facility] with hospice Problem Qualifiers (1) COPD (chronic obstructive pulmonary disease): (2) Hypertension: Qualified Code: I10 - Essential hypertension David Giron MD May 19, 2016 14:22
--- NOTE | 2016-05-19 14:47 | RADRPT ---
EXAM DATE/TIME: 05/19/2016 14:18 [place] COMPARISON: No previous studies available for comparison. INDICATIONS : Altered mental status. RADIATION DOSE: 56.35 CTDIvol (mGy) MEDICAL HISTORY : Hypertension. SURGICAL HISTORY : None. ENCOUNTER: Initial ACUITY: 1 day PAIN SCALE: Non-responsive LOCATION: cranial TECHNIQUE: Multiple contiguous axial images were obtained of the head. Using automated exposure control and adj ustment of the mA and/or kV according to patient size, radiation dose was kept as low as reasonably a chievable to obtain optimal diagnostic quality images. FINDINGS: There is atrophy and patchy and confluent decreased attenuation in the bilateral periventricular whit e matter felt to be most characteristic of chronic microvascular ischemic disease. 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 No signs of acute infarct, hemorrhage, or mass. Calcification of the distal vertebral arteries and carotid arteries are noted. No fractures. CONCLUSION: No acute disease. Chano Jimenes MD on May 19, 2016 at 14:41 Board Certified Radiologist. This report was verified electronically.
--- NOTE | 2016-05-19 14:49 | HHI.HCPN ---
Reason for visit a. To assist with evaluation and management of symptoms including: pain, dyspnea, anxiety, weakness b. To assist medical decision maker(s) with: better understanding of current medical conditions; weighing benefits/burdens of medical treatment options; making medical treatment decisions. . (Paradise Franco) Subjective/Interval History Ms. Meehan is an 85-year-old female admitted to [facility] 05/09/16 for management of chest pain, anemia and CAD. Patient was seen and assessed in room 525. Patient is slightly more confused today, having intermittent chest pain. Cardiology continues to followrecommending hospice. Patient became severely thrombocytopenic secondary to Aggrastat administration. Platelet count was 276,000 on 05/16/16, dropping to 5000 after receiving Aggrastat. Aggrastat, heparin and Plavix antiplatelet agents were discontinued - will restart when platelets > 50,000. Patient's platelets increased to 30, 000 status post being transfused with 1 unit of platelets on 05/17/16, trended downward today to 20,000. On assessment the patient was having significant bleeding with IV accessed attempts - transfusion with RBCs now pending. Patient demonstrating increased alteration in mental status, not responding to questions consistently. CT brain pending. Cardiology, nephrology, and hematology/oncology continue to follow. . (Paradise Franco) Advance Directives Health Care Surrogate: Copy in medical record Durable Power of Quality Eng: Completed, but not made available (Paradise Franco) Advance Directive Specifics Date completed: 05/18/16 . Health Care Surrogate(s): Patient's daughter, Maureen Sorensen, is designated as the healthcare surrogate. . Documented care wishes: No documented care wishes are available at this time. . (Paradise Franco) Objective Vital Signs Date Time Temp Pulse Resp B/P Pulse Ox O2 Delivery O2 Flow Rate FiO2 05/19/16 12:45 148/76 05/19/16 12:30 55/40 05/19/16 12:00 68 05/19/16 12:00 98 Nasal Cannula 2.00 05/19/16 12:00 98.2 68 16 152/76 05/19/16 10:00 66 05/19/16 09:14 95 Nasal Cannula 2.00 05/19/16 08:00 68 4/14/17 08:00 98.9 68 20 150/76 97 05/19/16 08:00 97 Nasal Cannula 2.00 05/19/16 06:00 65 05/19/16 04:00 65 05/19/16 04:00 99 Nasal Cannula 2.00 05/19/16 04:00 98.6 65 18 150/74 100 05/19/16 02:00 64 05/19/16 00:00 98.6 64 18 153/76 100 05/19/16 00:00 100 Nasal Cannula 2.00 05/19/16 00:00 64 05/18/16 22:00 68 05/18/16 21:54 100 Nasal Cannula 2.00 05/18/16 20:00 100 Nasal Cannula 2.00 05/18/16 20:00 98.6 67 18 128/70 100 05/18/16 20:00 67 05/18/16 18:00 68 05/18/16 16:00 98 Nasal Cannula 2.00 05/18/16 16:00 62 05/18/16 16:00 98.1 70 18 127/68 100 Intake & Output 05/19/16 05/19/16 07:00 19:00 Intake Total 500 ml Output Total 0 ml 2000 ml Balance 500 ml -2000 ml Intake Oral 500 ml IV Total 0 ml Output Urine Total 0 ml Hemodialysis 2000 ml # Bowel Movements 0 . Physical Exam CONSTITUTIONAL/GENERAL: This is an adequately nourished patient, having increased alterations in mental status. TUBES/LINES/DRAINS: CVL, PIV, AVF SKIN: No jaundice, rashes, or lesions. Ecchymoses on upper extremities. No wounds seen anteriorly. Skin temperature appropriate. Not diaphoretic. HEAD: Atraumatic. Normocephalic. EYES: Pupils equal and round and reactive. ENT: Hearing grossly normal. Nose without bleeding or purulent drainage. NECK: Trachea midline. No JVD. CARDIOVASCULAR: Regular rate and rhythm. + Murmur. Peripheral pulses symmetric. RESPIRATORY/CHEST: On nasal cannula. Breath sounds diminished bilaterally. No wheezes, rales, or rhonchi. GASTROINTESTINAL: Abdomen soft, non-tender, nondistended. . No guarding. Bowel sounds present. GENITOURINARY: Without palpable bladder distension. MUSCULOSKELETAL: Extremities without clubbing, cyanosis, or edema. No obvious deformities LYMPHATICS: No palpable cervical or supraclavicular adenopathy. NEUROLOGICAL: Lethargic, not responding to most question. PSYCHIATRIC: Unable to assess due to clinical condition. . (Paradise Franco) Diagnostic Tests Laboratory Laboratory Tests Test 05/16/16 05/16/16 05/17/16 05/17/16 17:00 22:55 04:45 07:00 Blood Type O NEGATIVE Antibody Screen NEGATIVE Crossmatch Leukocyte-Reduced Red Blood Cells Blood Bank Comment Hemoglobin 10.2 GM/DL 9.2 GM/DL 9.3 GM/DL (11.6-15.3) (11.6-15.3) (11.6-15.3) Hematocrit 30.1 % 26.9 % 27.7 % (35.0-46.0) (35.0-46.0) (35.0-46.0) White Blood Count 12.7 TH/MM3 11.9 TH/MM3 (4.0-11.0) (4.0-11.0) Red Blood Count 2.89 MIL/MM3 2.95 MIL/MM3 (4.00-5.30) (4.00-5.30) Mean Corpuscular Volume 93.1 FL 93.9 FL (80.0-100.0) (80.0-100.0) Mean Corpuscular Hemoglobin 31.9 PG 31.5 PG (27.0-34.0) (27.0-34.0) Mean Corpuscular Hemoglobin 34.3 % 33.5 % Concent (32.0-36.0) (32.0-36.0) Red Cell Distribution Width 16.0 % 16.5 % (11.6-17.2) (11.6-17.2) Platelet Count 5 TH/MM3 8 TH/MM3 (150-450) (150-450) Mean Platelet Volume 10.0 FL 9.3 FL (7.0-11.0) (7.0-11.0) Neutrophils (%) (Auto) 85.9 % 91.0 % (16.0-70.0) (16.0-70.0) Lymphocytes (%) (Auto) 5.9 % 4.5 % (9.0-44.0) (9.0-44.0) Monocytes (%) (Auto) 6.1 % (0.0-8.0) 2.3 % (0.0-8.0) Eosinophils (%) (Auto) 1.7 % (0.0-4.0) 1.9 % (0.0-4.0) Basophils (%) (Auto) 0.4 % (0.0-2.0) 0.3 % (0.0-2.0) Neutrophils # (Auto) 10.9 TH/MM3 10.8 TH/MM3 (1.8-7.7) (1.8-7.7) Lymphocytes # (Auto) 0.7 TH/MM3 0.5 TH/MM3 (1.0-4.8) (1.0-4.8) Monocytes # (Auto) 0.8 TH/MM3 0.3 TH/MM3 (0-0.9) (0-0.9) Eosinophils # (Auto) 0.2 TH/MM3 0.2 TH/MM3 (0-0.4) (0-0.4) Basophils # (Auto) 0.1 TH/MM3 0.0 TH/MM3 (0-0.2) (0-0.2) CBC Comment AUTO DIFF AUTO DIFF Differential Comment AUTO DIFF AUTO DIFF CONFIRMED CONFIRMED Platelet Estimate RARE (NORMAL) RARE (NORMAL) Platelet Morphology Comment NORMAL NORMAL (NORMAL) (NORMAL) Acanthocytes OCC (NORMAL) Sodium Level 134 MEQ/L (136-145) Potassium Level 5.3 MEQ/L (3.5-5.1) Chloride Level 96 MEQ/L (98-107) Carbon Dioxide Level 28.0 MEQ/L (21.0-32.0) Anion Gap 10 MEQ/L (5-15) Blood Urea Nitrogen 47 MG/DL (7-18) Creatinine 5.41 MG/DL (0.50-1.00) Estimat Glomerular Filtration 9 ML/MIN (>89) Rate Random Glucose 88 MG/DL (74-106) Calcium Level 8.6 MG/DL (8.5-10.1) Magnesium Level 2.4 MG/DL (1.5-2.5) Total Creatine Kinase 363 U/L (26-192) Creatine Kinase MB 36.9 NG/ML (0.5-3.6) Creatine Kinase MB % 10.2 % (0.0-4.0) Ovalocytes 1+ (NORMAL) Test 05/17/16 05/17/16 05/17/16 05/17/16 09:30 12:23 15:00 16:13 Heparin-Induced Platelet Ab NEGATIVE ([place]) (NEGATIVE) HIPA Patient Optical Density 0.037 O.D. (0.000-0.300) Blood Bank Comment White Blood Count 16.0 TH/MM3 (4.0-11.0) Red Blood Count 2.83 MIL/MM3 (4.00-5.30) Hemoglobin 8.9 GM/DL (11.6-15.3) Hematocrit 26.3 % (35.0-46.0) Mean Corpuscular Volume 92.9 FL (80.0-100.0) Mean Corpuscular Hemoglobin 31.3 PG (27.0-34.0) Mean Corpuscular Hemoglobin 33.7 % Concent (32.0-36.0) Red Cell Distribution Width 16.6 % (11.6-17.2) Platelet Count 19 TH/MM3 (150-450) Mean Platelet Volume 8.8 FL (7.0-11.0) Neutrophils (%) (Auto) 90.2 % (16.0-70.0) Lymphocytes (%) (Auto) 5.0 % (9.0-44.0) Monocytes (%) (Auto) 4.6 % (0.0-8.0) Eosinophils (%) (Auto) 0.1 % (0.0-4.0) Basophils (%) (Auto) 0.1 % (0.0-2.0) Neutrophils # (Auto) 14.4 TH/MM3 (1.8-7.7) Lymphocytes # (Auto) 0.8 TH/MM3 (1.0-4.8) Monocytes # (Auto) 0.7 TH/MM3 (0-0.9) Eosinophils # (Auto) 0.0 TH/MM3 (0-0.4) Basophils # (Auto) 0.0 TH/MM3 (0-0.2) CBC Comment AUTO DIFF Differential Comment AUTO DIFF CONFIRMED Platelet Estimate RARE (NORMAL) Platelet Morphology Comment NORMAL (NORMAL) Acanthocytes OCC (NORMAL) Lactate Dehydrogenase 311 U/L (84-246) Troponin I 18.20 NG/ML (0.02-0.05) Blood Type O NEGATIVE Crossmatch Leukocyte-Reduced Red Blood Cells Test 05/17/16 05/17/16 05/18/16 05/18/16 18:00 20:25 05:11 18:57 Troponin I 18.30 NG/ML 15.60 NG/ML 15.60 NG/ML (0.02-0.05) (0.02-0.05) (0.02-0.05) White Blood Count 8.5 TH/MM3 (4.0-11.0) Red Blood Count 3.02 MIL/MM3 (4.00-5.30) Hemoglobin 9.2 GM/DL (11.6-15.3) Hematocrit 26.6 % (35.0-46.0) Mean Corpuscular Volume 88.0 FL (80.0-100.0) Mean Corpuscular Hemoglobin 30.4 PG (27.0-34.0) Mean Corpuscular Hemoglobin 34.6 % Concent (32.0-36.0) Red Cell Distribution Width 21.5 % (11.6-17.2) Platelet Count 30 TH/MM3 (150-450) Mean Platelet Volume 10.4 FL (7.0-11.0) Neutrophils (%) (Auto) 87.9 % (16.0-70.0) Lymphocytes (%) (Auto) 8.4 % (9.0-44.0) Monocytes (%) (Auto) 3.6 % (0.0-8.0) Eosinophils (%) (Auto) 0.0 % (0.0-4.0) Basophils (%) (Auto) 0.1 % (0.0-2.0) Neutrophils # (Auto) 7.5 TH/MM3 (1.8-7.7) Lymphocytes # (Auto) 0.7 TH/MM3 (1.0-4.8) Monocytes # (Auto) 0.3 TH/MM3 (0-0.9) Eosinophils # (Auto) 0.0 TH/MM3 (0-0.4) Basophils # (Auto) 0.0 TH/MM3 (0-0.2) CBC Comment AUTO DIFF Differential Comment AUTO DIFF CONFIRMED Platelet Estimate LOW (NORMAL) Platelet Morphology Comment NORMAL (NORMAL) Sodium Level 132 MEQ/L (136-145) Potassium Level 4.9 MEQ/L (3.5-5.1) Chloride Level 96 MEQ/L (98-107) Carbon Dioxide Level 27.5 MEQ/L (21.0-32.0) Anion Gap 9 MEQ/L (5-15) Blood Urea Nitrogen 46 MG/DL (7-18) Creatinine 4.84 MG/DL (0.50-1.00) Estimat Glomerular Filtration 10 ML/MIN (>89) Rate Random Glucose 129 MG/DL (74-106) Calcium Level 9.1 MG/DL (8.5-10.1) Total Bilirubin 0.5 MG/DL (0.2-1.0) Aspartate Amino Transf 57 U/L (15-37) (AST/SGOT) Alanine Aminotransferase 25 U/L (10-53) (ALT/SGPT) Alkaline Phosphatase 84 U/L (45-117) Total Protein 6.3 GM/DL (6.4-8.2) Albumin 2.9 GM/DL (3.4-5.0) Total Creatine Kinase 143 U/L (26-192) Test 05/19/16 05/19/16 05/19/16 05:52 08:23 11:00 White Blood Count 12.6 TH/MM3 (4.0-11.0) Red Blood Count 3.02 MIL/MM3 (4.00-5.30) Hemoglobin 9.2 GM/DL (11.6-15.3) Hematocrit 26.9 % (35.0-46.0) Mean Corpuscular Volume 89.0 FL (80.0-100.0) Mean Corpuscular Hemoglobin 30.3 PG (27.0-34.0) Mean Corpuscular Hemoglobin 34.0 % Concent (32.0-36.0) Red Cell Distribution Width 21.0 % (11.6-17.2) Platelet Count 20 TH/MM3 (150-450) Mean Platelet Volume 9.1 FL (7.0-11.0) Neutrophils (%) (Auto) 82.1 % (16.0-70.0) Lymphocytes (%) (Auto) 10.2 % (9.0-44.0) Monocytes (%) (Auto) 5.6 % (0.0-8.0) Eosinophils (%) (Auto) 1.7 % (0.0-4.0) Basophils (%) (Auto) 0.4 % (0.0-2.0) Neutrophils # (Auto) 10.4 TH/MM3 (1.8-7.7) Lymphocytes # (Auto) 1.3 TH/MM3 (1.0-4.8) Monocytes # (Auto) 0.7 TH/MM3 (0-0.9) Eosinophils # (Auto) 0.2 TH/MM3 (0-0.4) Basophils # (Auto) 0.1 TH/MM3 (0-0.2) CBC Comment AUTO DIFF Differential Comment AUTO DIFF CONFIRMED Platelet Estimate LOW (NORMAL) Platelet Morphology Comment NORMAL (NORMAL) Acanthocytes OCC (NORMAL) Keratocytes OCC (NORMAL) Troponin I 19.20 NG/ML 20.90 NG/ML (0.02-0.05) (0.02-0.05) Sodium Level 133 MEQ/L (136-145) Potassium Level 5.7 MEQ/L (3.5-5.1) Chloride Level 94 MEQ/L (98-107) Carbon Dioxide Level 29.2 MEQ/L (21.0-32.0) Anion Gap 10 MEQ/L (5-15) Blood Urea Nitrogen 58 MG/DL (7-18) Creatinine 6.03 MG/DL (0.50-1.00) Estimat Glomerular Filtration 8 ML/MIN (>89) Rate Random Glucose 79 MG/DL (74-106) Calcium Level 8.8 MG/DL (8.5-10.1) Total Creatine Kinase 187 U/L (26-192) Blood Type O NEGATIVE Antibody Screen NEGATIVE Crossmatch Leukocyte-Reduced Red Blood Cells Blood Bank Comment . (Paradise Franco) Result Diagram: 05/19/16 0552 05/19/16 0823 Imaging Last 72 hours Impressions Chest X-Ray 05/18/16 0000 Signed Impressions: Service Date/Time: May 17:02 - CONCLUSION: Stable chest appearance Tristian Durant MD Chest X-Ray 05/17/16 0000 Signed Impressions: Service Date/Time: Tuesday, May 17, 2016 07:09 - CONCLUSION: 1. Suspected trace bilateral pleural effusions. 2. Large hiatal hernia with associated compressive atelectasis in the left lower lobe. This is a stable finding. Tristian Hdz MD . Procedures 05/16/16: Cardiac catheterization 05/16/16: PEA arrest with intubation 05/16/16: extubation . (Paradise Franco) Assessment and Plan Disease Oriented Problem List: (1) NSTEMI (non-ST elevated myocardial infarction) (2) COPD (chronic obstructive pulmonary disease) (3) Hyponatremia (4) Thrombocytopenia (5) Paroxysmal atrial fibrillation (6) Hypertension (7) CAD (coronary artery disease) (8) Unstable angina (9) ESRD (end stage renal disease) (10) Murmur Symptom Scale: (1) Anxiety 0-10 Scale: Unable to quantify (2) Pain 0-10 Scale: Unable to quantify Comment: Patient denies chest pain. Nitroglycerin drip was off on exam. Received 1G acetaminophen IV x 1 yesterday. PRN Tramadol 50mg is available q12 hours - one dose administered in the past 24 hours. Oxycodone was discontinued, started on Percocet q6 hours PRN. (3) Dyspnea Comment: Oxygen saturations in the high 90s on 2L via nasal cannula. Patient having dyspnea with conversation. . Pertinent Non-Medical Issues Psychosocial: Ms. Meehan was born in [place]. 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 Ms. 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 Patient was twice. She her first after 18 years. Her second recently, they were for 9 years. He was a assembler dielectric heater, she describes her second as ' the most wonderful man". She has 2 adult adopted children. A daughter, Maureen, who lives locally. She also has a son, Marty, but they are not close. Spiritual: Patient considers herself spiritual, her second was assembler dielectric heater. She refused b2b sales professional visits. Legal: Patient's daughter, Maureen Sorensen, is designated as the health care surrogate. Ethical issues impacting care: Patient is capacitated at the time of my visit. She demonstrates understanding of her illness and the ability to weight benefits and burdens of treatment options. . Important Contacts Florentin Sorensen, daughter: [phone] . Prognosis Patient with extensive CAD s/p cardiac catheterizations in April and May of this year with stent placement. Patient's most recent cardiac catheterization was complicated by a PEA arrest and hypoxemia requiring ACLS and intubation as well as mechanical ventilation. Patient hospitalization complicated by severe thrombocytopenia for which hematology was consulted - and thought was related to restriction of Aggrastat during the procedure. Patient is not a candidate for further aggressive interventions at this time. Hospice care has been recommended. . Code Status: No Code Plan * NO CODE * Decision-making: Patient is capacitated at the time of my visit. She demonstrates understanding of her illness and the ability to weigh the benefits and burdens of treatment options. Patient designated her daughter, Maureen Sorensen , as her health care surrogate on 05/18/16. * Goals: Patient was previously on [facility] hospice - stating she does not want readmission to hospice on discharge. * Discussed with nurse Lugo. * Patient became severely thrombocytopenic secondary to Aggrastat administration. Platelet count was 276,000 on 05/16/16, dropping to 5000 after receiving Aggrastat. Aggrastat, heparin and Plavix antiplatelet agents were discontinued - will restart when platelets > 50,000. Patient's platelets increased to 30,000 status post being transfused with 1 unit of platelets on 01/21, trended downward today to 20,000. On assessment the patient was having significant bleeding with IV accessed attempts - transfusion with RBCs now pending. * Patient demonstrating increased alteration in mental status, not responding to questions consistently. CT brain pending. * Symptom managementpain: Patient denies chest pain. Nitroglycerin drip was off on exam. Received 1G acetaminophen IV x 1 yesterday. PRN Tramadol 50mg is available q12 hours - one dose administered in the past 24 hours. Oxycodone was discontinued, started on Percocet q6 hours PRN. May consider low dose IV fentanyl if pain is not controlled or patient is unable to tolerate PO medications. * Spoke with patient's daughter to introduce the Palliative Care team. Update provided ob the patient's clinical condition. Discussed patient's verbalized wish NOT to be readmitted to hospice upon discharge. * Palliative care will continue to follow this patient throughout her hospitalization to establish trust, assist with symptom management and clarification of medical treatment goals. . . (Paradise Franco) Attestation To help prompt me to consider important information that might be impacting today's encounter and assessment, information from prior notes written by myself or my colleagues may have been "brought forward" into today's note. My signature on this note, however, is an attestation that I personally performed the exam, history, and/or decision-making noted today, and, unless otherwise indicated, the interactions with patient, family, and staff as well as the review of records all occurred today. I also attest that the listed assessment and stated plan reflect my best clinical judgment today based on the combination of historical information, prior notes, and today's exam/ interactions. When time spent is documented, it refers only to time spent today by the signer, or if indicated, combined time spent today by collaborating physician/nurse practitioner. . (Paradise Franco) Collaborating MD Comments . Chart reviewed. Cased discussed with palliative care EMU FARMER. Above EMU FARMER note reviewed and I concur. . (Tanmay Ojeda MD) Paradise Franco May 19, 2016 14:49 Tanmay Ojeda MD July 03, 2016 15:24
--- NOTE | 2016-05-19 22:10 | MG ---
cc: ABRAHAM STRATTON MD Lab No: [id number] Date: 05/19/16 Age: Sex: F Race: DATE OF : 1930 HISTORY An 85-year-old. History of mental status changes, confusion. DESCRIPTION 4-5 Hz posterior rhythm, 20-40 microvolts with admixed 2-3 Hz delta activity occurring. Mild sharp transients left temporal region seen on epoch 61. Left arm tremor, no epileptic correlation. Posterior rhythm did increment up to 5-6 Hz. Reduced driving with photic stimulation. Reasonable EEG variability reactivity. Disorganized waveforms occurring off and on. INTERPRETATION Mild to moderate encephalopathy. Clinical correlation. Abraham Stratton MD MG/BJF /9:34 PM /9:50 PM
[2016-05-19] MEDS: RESP: ALBUTEROL 2.5 MG/3 ML NEB (PRN) NEB (23:00)
[2016-05-20] VITALS (14 sets, daily range): BP systolic 90–148; BP diastolic 51–75; PULSE 72–101; RESP 18–20; TEMP 98–98.6; O2SAT 98–100
[2016-05-20] MEDS: NITROGLYCERIN 2% OINT 1 GM PACKET TOPICAL SCH ×4 (03:26→20:37)
[2016-05-20] MEDS: NITROGLYCERIN 0.4 MG SL 25 TABS/BTL SL PRN ×3 (03:42→04:08)
[2016-05-20] MEDS: RESP: ALBUTEROL 2.5 MG/IPRATROPIUM 0.5 MG NEB (SCH) NEB ×4 (03:47→19:56)
[2016-05-20] MEDS: INSULIN ASPART SUPPLEMENTAL SCALE SQ SCH ×4 (05:18→17:55)
[2016-05-20] MEDS: MEGESTROL ACETATE SUSP 400 MG/10 ML CUP PO SCH (08:52)
[2016-05-20] MEDS: amLODIPine BESYLATE 5 MG TAB PO SCH (08:52)
[2016-05-20] MEDS: CARVEDILOL 12.5 MG TAB PO SCH ×2 (08:52→20:37)
[2016-05-20] MEDS: DOCUSATE SODIUM 100 MG CAP PO SCH ×2 (08:52→20:37)
[2016-05-20] MEDS: SEVELAMER CARBONATE 800 MG TAB PO SCH ×3 (08:52→17:55)
[2016-05-20] MEDS ORDERED: DEXAMETHASONE SOD PHOS 20 MG/5 ML VIAL ONE (10:58)
[2016-05-20] MEDS ORDERED: EPINEPHrine HCL (1:10,000) 1 MG/10 ML SYRINGE ONE (10:58)
[2016-05-20] MEDS ORDERED: RESP: RACEPINEPHRINE 2.25% 0.5 ML NEB NEB ONE (11:00)
--- NOTE | 2016-05-20 11:02 | PD.ONC.PN ---
Subjective Subjective Remarks Afebrile overnight. Patient had a difficult night. She had some chest pain, which has now resolved. No bleeding. Has occasional cough. Objective Data Date Time Temp Pulse Resp B/P Pulse Ox O2 Delivery O2 Flow Rate FiO2 05/20/16 10:00 72 05/20/16 08:06 100 Nasal Cannula 2.00 05/20/16 08:00 100 Nasal Cannula 2.00 05/20/16 08:00 98.6 72 18 122/67 100 05/20/16 08:00 72 05/20/16 06:00 78 05/20/16 04:00 98.6 80 18 112/60 100 05/20/16 04:00 73 05/20/16 04:00 100 Nasal Cannula 2.00 05/20/16 02:00 79 05/20/16 00:00 80 05/20/16 00:00 98.0 80 20 90/51 98 05/20/16 00:00 98 Nasal Cannula 2.00 05/19/16 22:00 76 05/19/16 20:00 99.6 80 18 140/58 98 05/19/16 20:00 72 05/19/16 20:00 100 Nasal Cannula 2.00 05/19/16 20:00 98 Nasal Cannula 2.00 05/19/16 18:00 72 05/19/16 16:00 98.5 80 16 152/76 05/19/16 16:00 80 05/19/16 16:00 99 Nasal Cannula 2.00 05/19/16 14:00 78 05/19/16 12:45 148/76 05/19/16 12:30 55/40 05/19/16 12:00 68 05/19/16 12:00 98 Nasal Cannula 2.00 05/19/16 12:00 98.2 68 16 152/76 05/20/16 05/20/16 05/20/16 07:00 15:00 23:00 Intake Total 120 ml Balance 120 ml Result Diagram: 05/19/16 0552 05/19/16 0823 Laboratory Results Laboratory Tests Test 05/19/16 11:00 Blood Type O NEGATIVE Antibody Screen NEGATIVE Crossmatch Leukocyte-Reduced Red Blood Cells Blood Bank Comment Administered Medications Medications (Trade) Dose Ordered Sig/Thierry Route PRN Reason Start Time Stop Time Status Last Admin Dose Admin Alprazolam (Xanax) 0.25 mg Q8H PRN PO ANXIETY 05/09/16 17:15 Hold 05/13/16 10:28 Carvedilol (Coreg) 12.5 mg Q12HR PO 05/09/16 21:00 05/20/16 08:52 Docusate Sodium (Colace) 100 mg BID PO 05/09/16 21:00 05/20/16 08:52 Sevelamer Carbonate (Renvela) 800 mg TID PO 05/09/16 18:00 05/20/16 08:52 Acetaminophen (Tylenol) 650 mg Q4H PRN PO TEMP > 100.4 05/09/16 17:30 05/14/16 01:11 Zolpidem Tartrate (Ambien) 5 mg HS PRN PO INSOMNIA 05/09/16 17:30 05/15/16 22:00 Megestrol Acetate (Megace Liq) 800 mg DAILY PO 05/10/16 09:00 05/20/16 08:52 Amlodipine Besylate (Norvasc) 5 mg DAILY PO 05/14/16 09:00 05/20/16 08:52 Tramadol HCl (Ultram) 50 mg Q12H PRN PO CHEST PAIN 05/14/16 10:30 05/18/16 14:52 Sodium Chloride (NS Flush) 2 ml BID .XX 05/16/16 21:00 05/19/16 20:28 Insulin Aspart (NovoLOG SUPPLEMENTAL SCALE) 1 Q6H SQ 05/17/16 06:00 05/19/16 18:00 Nitroglycerin (Nitrostat Sl) 0.4 mg Q5M PRN SL CHEST PAIN 05/17/16 15:00 05/20/16 04:08 Nitroglycerin (Nitroglycerin 2% Oint) 2 inch Q6H TOPICAL 05/17/16 16:00 05/20/16 10:00 Oxycodone/ Acetaminophen (Percocet 5-325 Mg) 1 tab Q6H PRN PO CHEST PAIN 05/18/16 16:30 05/20/16 03:26 Objective Remarks GENERAL: Pleasant, elderly female, sitting up in bed, resting SKIN: Warm and dry. HEAD: Normocephalic. EYES: No injection or drainage. NECK: Supple, trachea midline. CARDIOVASCULAR: +S1/S2 RESPIRATORY: Breath sounds equal bilaterally. No accessory muscle use. GASTROINTESTINAL: Abdomen soft, non-tender, nondistended. EXTREMITIES: No cyanosis MUSCULOSKELETAL: Adequate muscle tone. NEUROLOGICAL: awake and alert, normal speech. moving all extremities. Assessment/Plan Problem List: (1) Thrombocytopenia Status: Acute Plan: --Severe thrombocytopenia due to the Aggrastat. --Will transfuse if any evidence of bleeding or platelet <10K. --platelet count was 276,000 05/16 and dropped to 5000 after receiving Aggrastat. --Peripheral smear did not show any platelet clumping. The platelet morphology appeared normal and there was significantly decreased platelet count. No significant schistocytes noted. --HIT ab neg. 05/17--Received 1U platelet 05/18 platelet trended up to 30K, no bleeding noted. Will monitor her platelet count closely. She can restart antiplatelet agents after her platelet count starts trending up. 05/19 Platelet trended down to 20K. No bleeding noted. Continue to monitor. 05/20: CBC pending (2) CAD (coronary artery disease) Status: Acute Plan: --presented to the hospital with a non-ST elevation myocardial infarction. --was taken to [facility] yesterday and a metal stent was placed in the LAD. coded on the table and had a PEA arrest. She was resuscitated. --During the procedure she was given Aggrastat and heparin. --Without the antiplatelet agents she has an increased risk of clotting the stent, but at this point she is not able to receive any antiplatelet agents due to severe thrombocytopenia. (3) ESRD (end stage renal disease) Status: Acute Plan: --on hemodialysis. --Recommend not to use heparin for dialysis. (4) Anemia Status: Acute Assessment 85y/o admitted with NSTEMI, Hematology consulted for thrombocytopenia history of end-stage renal disease, coronary artery disease, COPD, congestive heart failure, Plan 1. await CBC today. 2. ok to resume antiplatelet agents when platelet count is greater than 50K. Attending Statement The exam, history, and the medical decision-making described in the above note were completed with the assistance of the mid-level provider. I reviewed and agree with the findings presented. I attest that I had a [id number] encounter with the patient on the same day, and personally performed and documented my assessment and findings in the medical record. Problem Qualifiers (1) CAD (coronary artery disease): Qualified Code: I25.10 - Coronary artery disease due to calcified coronary lesion (2) Anemia: Adrienne Padilla May 20, 2016 11:01 Clark King MD May 20, 2016 23:58
--- NOTE | 2016-05-20 11:34 | HHI.PR ---
Subjective Remarks c/o some tightness at the level of the throat and sob Patient denies cp as per RN had chest pain last night relieved by nitroglycerin c/o cough vital signs stable. labwork could not be drawn as per RN. Objective Vitals Vital Signs Date Time Temp Pulse Resp B/P Pulse Ox O2 Delivery O2 Flow Rate FiO2 05/20/16 10:00 72 05/20/16 08:06 100 Nasal Cannula 2.00 05/20/16 08:00 100 Nasal Cannula 2.00 05/20/16 08:00 98.6 72 18 122/67 100 05/20/16 08:00 72 05/20/16 06:00 78 05/20/16 04:00 98.6 80 18 112/60 100 05/20/16 04:00 73 05/20/16 04:00 100 Nasal Cannula 2.00 05/20/16 02:00 79 05/20/16 00:00 80 05/20/16 00:00 98.0 80 20 90/51 98 05/20/16 00:00 98 Nasal Cannula 2.00 05/19/16 22:00 76 05/19/16 20:00 99.6 80 18 140/58 98 05/19/16 20:00 72 05/19/16 20:00 100 Nasal Cannula 2.00 05/19/16 20:00 98 Nasal Cannula 2.00 05/19/16 18:00 72 05/19/16 16:00 98.5 80 16 152/76 05/19/16 16:00 80 05/19/16 16:00 99 Nasal Cannula 2.00 05/19/16 14:00 78 05/19/16 12:45 148/76 05/19/16 12:30 55/40 05/19/16 12:00 68 05/19/16 12:00 98 Nasal Cannula 2.00 05/19/16 12:00 98.2 68 16 152/76 I/O 05/19/16 05/19/16 05/19/16 05/20/16 05/20/16 05/20/16 07:00 15:00 23:00 07:00 15:00 23:00 Intake Total 100 ml 600 ml 480 ml 120 ml Output Total 0 ml 2000 ml Balance 100 ml -1400 ml 480 ml 120 ml Intake Oral 100 ml 200 ml 480 ml 120 ml IV Total 0 ml 150 ml Packed Cells 250 ml Output Urine Total 0 ml 0 ml Hemodialysis 2000 ml # Voids 1 1 # Bowel Movements 0 0 1 Result Diagram: 05/19/16 0552 05/19/16 0823 Imaging Last Impressions Head CT 05/19/16 0000 Signed Impressions: Service Date/Time: Thursday, May 19, 2016 14:18 - CONCLUSION: No acute disease. Chano Jimenes MD Chest X-Ray 05/18/16 0000 Signed Impressions: Service Date/Time: May 17:02 - CONCLUSION: Stable chest appearance Tristian Durant MD Aorta CTA 05/10/16 0000 Signed Impressions: Service Date/Time: Tuesday, May 10, 2016 15:13 - CONCLUSION: 1. There is no evidence of aortic dissection. The widening of the mediastinum seen on the chest x-ray appears to represent a combination of pleural fluid and atelectatic lung along the descending thoracic aorta. 2. There are COPD changes within the pulmonary parenchyma. 3. There are small bilateral effusions. 4. The abdominal aorta and iliac vessels are intact. Yehuda Hanna MD Objective Remarks GENERAL: Patient with moderate respiratory distress, whispering. SKIN: Warm and dry. HEAD: Atraumatic. Normocephalic. EYES: Pupils equal and round. No scleral icterus. No injection or drainage. ENT: No nasal bleeding or discharge. Mucous membranes pink and moist. NECK: Trachea midline. No JVD. CARDIOVASCULAR: Regular rate and rhythm. systolic II/ murmur best hear in the 2nd left parasternal border. RESPIRATORY: There is accessory muscle use with nasal flapping. There is no stridor, however there seems to be a developing airway obstruction at the level of the larynx. There is rhonchi in the left lower lobe. GASTROINTESTINAL: Abdomen soft, non-tender, nondistended. Hepatic and splenic margins not palpable. MUSCULOSKELETAL: Extremities without clubbing, cyanosis, or edema. No obvious deformities. NEUROLOGICAL: Awake and alert. No obvious cranial nerve deficits. Motor grossly within normal limits. Five out of 5 muscle strength in the arms and legs. Normal speech. PSYCHIATRIC: Appropriate mood and affect; insight and judgment normal. Procedures Cardiac Catheterization on 05/16/16 - as per report bare metal stent placed to the mid LAD. Intubation and mechanical ventilation due to PEA arrest after Cardiac Catheterization. Medications and IVs Current Medications Medications (Trade) Dose Ordered Sig/Thierry Route Start Time Stop Time Status Last Admin (Xanax) 0.25 mg Q8H PRN PO 05/09/16 17:15 Hold 05/13/16 10:28 (Coreg) 12.5 mg Q12HR PO 05/09/16 21:00 05/20/16 08:52 (Colace) 100 mg BID PO 05/09/16 21:00 05/20/16 08:52 (Renvela) 800 mg TID PO 05/09/16 18:00 05/20/16 08:52 (Xalatan 0.005% Opth Soln) 1 drop HS PRN EACH EYE 05/09/16 17:30 (Tylenol) 650 mg Q4H PRN PO 05/09/16 17:30 05/14/16 01:11 (Zofran Inj) 4 mg Q6H PRN IVP 05/09/16 17:30 (Dulcolax Supp) 10 mg DAILY PRN RECTAL 05/09/16 17:30 (Ambien) 5 mg HS PRN PO 05/09/16 17:30 05/15/16 22:00 (Narcan Inj) 0.4 mg UNSCH PRN IV 05/09/16 17:30 (Megace Liq) 800 mg DAILY PO 05/10/16 09:00 05/20/16 08:52 (Norvasc) 5 mg DAILY PO 05/14/16 09:00 05/20/16 08:52 (Ultram) 50 mg Q12H PRN PO 05/14/16 10:30 05/18/16 14:52 (NS Flush) 2 ml UNSCH PRN .XX 05/16/16 15:00 (NS Flush) 2 ml BID .XX 05/16/16 21:00 05/19/16 20:28 (Aspirin Chew) 162 mg DAILY PO 05/17/16 09:00 Hold (D50w (Vial) Inj) 25 ml UNSCH PRN IV PUSH 05/17/16 04:45 (Glucagon Inj) 1 mg UNSCH PRN OTHER 05/17/16 04:45 (NovoLOG SUPPLEMENTAL SCALE) 1 Q6H SQ 05/17/16 06:00 05/19/16 18:00 Nitroglycerin 0.4 mg 0.4 mg Q5M PRN SL 05/17/16 15:00 05/20/16 04:08 (Nitroglycerin-Dextrose Inj) 250 ml @ 0 mls/hr TITRATE IV 05/17/16 16:00 (Nitroglycerin 2% Oint) 2 inch Q6H TOPICAL 05/17/16 16:00 05/20/16 10:00 Oxycodone/ Acetaminophen 1 tab 1 tab Q6H PRN PO 05/18/16 16:30 05/20/16 03:26 Sodium Chloride 1,000 ml @ 0 mls/hr Q0M PRN IV 05/19/16 10:08 Sodium Chloride 1,000 ml @ 200 mls/hr Q5H PRN IV 05/19/16 10:08 (NS 1000 ml Inj) 1,000 ml @ 0 mls/hr Q0M PRN IV 05/19/16 10:08 (Mannitol Inj) 12.5 gm UNSCH PRN IV 05/19/16 10:15 (Albumin 25% Inj) 25 gm UNSCH PRN IV 05/19/16 10:15 (NS Flush) 5 ml UNSCH PRN IV FLUSH 05/19/16 10:15 (Gentamicin (Dialysis) Inj) 20 mg UNSCH PRN IV 05/19/16 10:15 (Zofran Inj) 4 mg UNSCH PRN IV 05/19/16 10:15 (Tylenol) 650 mg UNSCH PRN PO 05/19/16 10:15 (Benadryl) 25 mg UNSCH PRN PO 05/19/16 10:15 (Nitrostat Sl) 0.4 mg UNSCH PRN SL 05/19/16 10:15 (Catapres) 0.1 mg UNSCH PRN PO 05/19/16 10:15 (Epogen Inj) 10,000 units UNSCH PRN IV 05/19/16 10:15 (Gelfoam 12 Mm/7 Mm Top) 1 foam UNSCH PRN TOP 05/19/16 10:15 (Decadron Inj) 4 mg Q6H IV PUSH 05/20/16 17:00 (Racepinephrine 2.25% Neb) 0.5 ml ONCE ONCE NEB 05/20/16 11:00 05/20/16 11:01 Urinary Catheter: No A/P Problem List: (1) Unstable angina ICD Code: I20.0 Status: Resolved (2) Paroxysmal atrial fibrillation ICD Code: I48.0 Status: Acute (3) Mediastinal widening ICD Code: R93.8 Status: Acute (4) COPD (chronic obstructive pulmonary disease) ICD Code: J44.9 Status: Acute (5) ESRD (end stage renal disease) ICD Code: N18.6 Status: Acute (6) Severe anemia ICD Code: D64.9 Status: Acute (7) Hypertension ICD Code: I10 Status: Acute (8) Hyponatremia ICD Code: E87.1 Status: Acute (9) Hyperkalemia ICD Code: E87.5 Status: Acute (10) Change in mental status ICD Code: R41.82 Status: Acute (11) Hypotension ICD Code: I95.9 Status: Resolved (12) Respiratory distress ICD Code: R06.00 Status: Acute Plan: Ordered Dexamethasone 4 mg IV Q 6 hrs first dose STAT. Also ordered racemic epinephrine nebulizer treatment stat. The case was discussed with Dr. Mena from intensive care medicine. The patient is hemodynamically stable, satting 100% on 2 L nasal cannula and respiratory distress seemed to improve after treatment. I will keep the patient on my service. Assessment and Plan (1) Unstable angina Plan: Cardiology following. Patient status post left heart catheterization with stent placement to the LAD as per catheterization report. Patient's cardiac catheterization was complicated by a PEA arrest and hypoxemia which required ACLS and intubation as well as mechanical ventilation. Anesthesia intubated the patient. The patient had a return of spontaneous circulation. Patient was then seen in consultation by the on site coordinator who referred the patient. The patient was extubated on 05/17/16. Her stay was also complicated by thrombus cytopenia for which hematology was consulted and thought to be secondary to Aggrenox at that time. The patient now complains of chest pain described as pressure 6/10 substernal and nonradiating. She is also mildly dyspneic. The patient is a very high risk for in-stent thrombosis since her at the platelet therapy was held due to thrombocytopenia possibly caused by Aggrastat. I will order stat EKG, cardiac enzymes, and will RX 1 gm of intravenous acetaminophen (Ofirmev). As per cardiology recommendation, Dr. Valentin does not think that this is a life-threatening chest pain and this could be due to jailed 90% ostial small dx vessel and/or noncardiacThe Dr. Valentin states that the patient is at high risk for catheterization due to low platelets. Continue as needed nitroglycerin drip. The patient has been cleared from the perivascular standpoint to be discharged. Hospice care recommended. (2) Paroxysmal atrial fibrillation Plan: On Eliquis. Continue carvedilol for rate control. Paroxysmal A. fib is rate controlled. (3) Mediastinal widening Plan: Negative CTA. (4) COPD (chronic obstructive pulmonary disease) Plan: Seems stable. Not on any inhalers. (5) ESRD (end stage renal disease) Plan: Nephrology following. Hemodialysis as per nephrology schedule on Mondays , Sunday and Sunday. Patient has been cleared by nephrology for DC. (6) Severe anemia Plan: Patient initially admitted with hemoglobin of 6.8. Status post transfusion of 2 units of packed blood cells. Continue to monitor hemoglobin. Ocult blood in feces checked and negative. Iron studies consistent with anemia of chronic disease with marrow of 24, TIBC 116, percent saturation 11.1 and 935. hemoglobin stable - 10.8 (7) Hypertension Plan: Bp somewhat on lower side. Amlodipine dose decreased to 5 mg daily. Bp now better. (8) Hyponatremia Plan: Likely due to hypervolemic hyponatremia. Sodium now 133. Patient getting hemodialysis. (9) Hyperkalemia Plan: K 5.7. Management as per nephrology. Patient getting hemodialysis. Monitor BMP. 05/20 labs could not be drawn earlier today. This will be obtained today. Follow-up. (10) Change in mental status Plan: As per RN patient having episodes of blank stare on 05/19. I will order a stat head ct and an eeg to r/o seizures. Head CT showed no acute disease. EEG with changes consistent with encephalopathy. (11) Hypotension Plan: Episodic during dialysis. BP now better. Continue to monitor vital signs. GI prophylaxis: Continue PPI DVT prophylaxis: SCDs, on eliquis. Discharge Planning Continue to monitor in the ICU for now. Problem Qualifiers (1) COPD (chronic obstructive pulmonary disease): (2) Hypertension: Qualified Code: I10 - Essential hypertension David Giron MD May 20, 2016 11:33
[2016-05-20 13:55] LABS: AUTOMATED NEUTROPHIL # 8.1 TH/MM3 (1.8-7.7); BASOPHIL # 0.1 TH/MM3 (0-0.2); EOSINOPHIL # 0.6 TH/MM3 (0-0.4); EOSINOPHIL % 6.2 % (0.0-4.0); HEMATOCRIT 26.3 % (35.0-46.0); LYMPH % 7.9 % (9.0-44.0); LYMPHOCYTE # 0.8 TH/MM3 (1.0-4.8); MEAN CELL VOLUME 89.8 FL (80.0-100.0); MEAN CORPUSCULAR HGB CONC 33.3 % (32.0-36.0); NEUT % 79.9 % (16.0-70.0); RED BLOOD COUNT 2.93 MIL/MM3 (4.00-5.30); RED CELL DISTRIBUTION WIDTH 19.1 % (11.6-17.2); WHITE BLOOD COUNT 10.1 TH/MM3 (4.0-11.0)
[2016-05-20 13:58] LABS: HEMO FLAGS AUTO DIFF
[2016-05-20 14:01] LABS: PLATELET COUNT 12 TH/MM3 (150-450)
[2016-05-20 14:22] LABS: BICARBONATE 32.8 MEQ/L (21.0-32.0); POTASSIUM 5.1 MEQ/L (3.5-5.1)
[2016-05-20 14:33] LABS: ACANTHOCYTES OCC (NORMAL); PLATELET ESTIMATE SMEAR RARE (NORMAL); PLATELET MORPHOLOGY NORMAL (NORMAL); SCAN/DIFF AUTO DIFF CONFIRMED
--- NOTE | 2016-05-20 15:00 | PD.CARD.PN ---
Subjective Subjective Remarks alert in nad Objective Vital Signs / I&O Vital Signs Date Time Temp Pulse Resp B/P Pulse Ox O2 Delivery O2 Flow Rate FiO2 05/20/16 14:00 87 05/20/16 12:00 98.6 82 18 147/75 100 05/20/16 12:00 87 05/20/16 12:00 100 Nasal Cannula 2.00 05/20/16 10:00 72 05/20/16 08:06 100 Nasal Cannula 2.00 05/20/16 08:00 100 Nasal Cannula 2.00 05/20/16 08:00 98.6 72 18 122/67 100 05/20/16 08:00 72 05/20/16 06:00 78 05/20/16 04:00 98.6 80 18 112/60 100 05/20/16 04:00 73 05/20/16 04:00 100 Nasal Cannula 2.00 05/20/16 02:00 79 05/20/16 00:00 80 05/20/16 00:00 98.0 80 20 90/51 98 05/20/16 00:00 98 Nasal Cannula 2.00 05/19/16 22:00 76 05/19/16 20:00 99.6 80 18 140/58 98 05/19/16 20:00 72 05/19/16 20:00 100 Nasal Cannula 2.00 05/19/16 20:00 98 Nasal Cannula 2.00 05/19/16 18:00 72 05/19/16 16:00 98.5 80 16 152/76 05/19/16 16:00 80 05/19/16 16:00 99 Nasal Cannula 2.00 I/O 05/19/16 05/19/16 05/19/16 05/20/16 05/20/16 05/20/16 07:00 15:00 23:00 07:00 15:00 23:00 Intake Total 100 ml 600 ml 480 ml 120 ml 350 ml Output Total 0 ml 2000 ml Balance 100 ml -1400 ml 480 ml 120 ml 350 ml Intake Oral 100 ml 200 ml 480 ml 120 ml 250 ml IV Total 0 ml 150 ml 100 ml Packed Cells 250 ml Output Urine Total 0 ml 0 ml Hemodialysis 2000 ml # Voids 1 1 # Bowel Movements 0 0 1 Physical Exam GENERAL: SKIN: Warm and dry. HEAD: Normocephalic. EYES: No scleral icterus. No injection or drainage. NECK: Supple, trachea midline. No JVD or lymphadenopathy. CARDIOVASCULAR: Regular rate and rhythm without murmurs, gallops, or rubs. RESPIRATORY: Breath sounds equal bilaterally. No accessory muscle use. GASTROINTESTINAL: Abdomen soft, non-tender, nondistended. MUSCULOSKELETAL: No cyanosis, or edema. BACK: Nontender without obvious deformity. No CVA tenderness. Laboratory Laboratory Tests Test 05/20/16 12:55 White Blood Count 10.1 TH/MM3 Red Blood Count 2.93 MIL/MM3 Hemoglobin 8.8 GM/DL Hematocrit 26.3 % Mean Corpuscular Volume 89.8 FL Mean Corpuscular Hemoglobin 30.0 PG Mean Corpuscular Hemoglobin 33.3 % Concent Red Cell Distribution Width 19.1 % Platelet Count 12 TH/MM3 Mean Platelet Volume 9.9 FL Neutrophils (%) (Auto) 79.9 % Lymphocytes (%) (Auto) 7.9 % Monocytes (%) (Auto) 5.0 % Eosinophils (%) (Auto) 6.2 % Basophils (%) (Auto) 1.0 % Neutrophils # (Auto) 8.1 TH/MM3 Lymphocytes # (Auto) 0.8 TH/MM3 Monocytes # (Auto) 0.5 TH/MM3 Eosinophils # (Auto) 0.6 TH/MM3 Basophils # (Auto) 0.1 TH/MM3 CBC Comment AUTO DIFF Differential Comment AUTO DIFF CONFIRMED Platelet Estimate RARE Platelet Morphology Comment NORMAL Acanthocytes OCC Sodium Level 135 MEQ/L Potassium Level 5.1 MEQ/L Chloride Level 97 MEQ/L Carbon Dioxide Level 32.8 MEQ/L Anion Gap 5 MEQ/L Blood Urea Nitrogen 42 MG/DL Creatinine 4.66 MG/DL Estimat Glomerular Filtration 11 ML/MIN Rate Random Glucose 94 MG/DL Calcium Level 8.6 MG/DL Assessment and Plan Problem List: (1) Atrial fibrillation, new onset (2) Aortic stenosis (3) Hypertension (4) Hyperlipidemia (5) Depression (6) CAD (coronary artery disease) (7) Chest pain (8) Cardiomyopathy Assessment and Plan 1.) CAD - s/p pci bms mid lad, small diagonal vessel jailed but patent, dapt held due to thrombocytopenia; restart dapt when plt>50; chest pain due to jailed 90% ostial small dx vessel and/or noncardiac, do not thonk this is a life threatening stenosis or that requires admission, o/w patient is completely revascularized 2.) PAF - in nsr, assymptomatic, eliquis held d/t thrombocytopenia 3.) PEA - suspect d/t apnea from fentanyl and/or versed, trop elevated due to pea and esrd, trending down pci; patient is hospice, do not rec recurrent cath due to high risk d/t thrombocytopenia, pea from conscience sedation from fentanyl/versed and inability to access diagonal vessel d/t vessel tortuosity and 90 degreee angle off lad; rec palliative care consult, prn ntg 4.) Ok to dc from cv standpoint, f/u with me hellen; rec hospice, patient undecided 6.) thrombocytopenia - transfuse per hematology 6.) Stridor - suspect related to narcotidcs, known allergy to dilaudid, mso4, pea/apnea wuth fentanyl now stridor with percocet, rec dc percocet Problem Qualifiers (1) Hypertension: Qualified Code: I10 - Essential hypertension (2) CAD (coronary artery disease): Qualified Code: I25.10 - Coronary artery disease due to calcified coronary lesion (3) Chest pain: Qualified Code: R07.2 - Precordial pain Zohaib Valentin MD May 20, 2016 14:59
--- NOTE | 2016-05-20 15:25 | HHI.NPPN ---
Subjective General Problems: Anemia Renal Failure: Chronic, End Stage Renal Disease Review of Systems General Constitutional: Fatigue Cardiovascular Cardiac: Chest Pain Objective Data Data 05/19/16 05/20/16 18:59 06:59 Intake Total 600 ml 600 ml Output Total 2000 ml Balance -1400 ml 600 ml Intake Oral 200 ml 600 ml IV Total 150 ml Packed Cells 250 ml Output Urine Total 0 ml Hemodialysis 2000 ml # Voids 2 # Bowel Movements 0 1 Vital Signs Date Time Temp Pulse Resp B/P Pulse Ox O2 Delivery O2 Flow Rate FiO2 05/20/16 14:00 87 05/20/16 12:00 98.6 82 18 147/75 100 05/20/16 12:00 87 05/20/16 12:00 100 Nasal Cannula 2.00 05/20/16 10:00 72 05/20/16 08:06 100 Nasal Cannula 2.00 05/20/16 08:00 100 Nasal Cannula 2.00 05/20/16 08:00 98.6 72 18 122/67 100 05/20/16 08:00 72 05/20/16 06:00 78 05/20/16 04:00 98.6 80 18 112/60 100 05/20/16 04:00 73 05/20/16 04:00 100 Nasal Cannula 2.00 05/20/16 02:00 79 05/20/16 00:00 80 05/20/16 00:00 98.0 80 20 90/51 98 05/20/16 00:00 98 Nasal Cannula 2.00 05/19/16 22:00 76 05/19/16 20:00 99.6 80 18 140/58 98 05/19/16 20:00 72 05/19/16 20:00 100 Nasal Cannula 2.00 05/19/16 20:00 98 Nasal Cannula 2.00 05/19/16 18:00 72 05/19/16 16:00 98.5 80 16 152/76 05/19/16 16:00 80 05/19/16 16:00 99 Nasal Cannula 2.00 -: 05/20/16 1255 05/20/16 1255 Physical Exam General Appearance: Well Developed, Well Nourished, No Acute Distress, Comfortable, Malnourished Eyes Eye Exam: Pupils Equal Throat Throat Exam: Oral Mucosa [place] & Moist Neck Neck Exam: Neck Supple Pulmonary Resp Exam: Clear Bilaterally, Breath Sounds Equal, No Distress Cardiology CV Exam: Regular, Normal Sinus Rhythm, Good Perfusion, Dyspnea on Exertion Gastrointestinal/Abdomen GI Exam: Soft, Non-Tender, Bowel Sounds Present Musculoskeletal MS Exam: Joints Intact, Normal Tone Integumentary Skin Exam: Clear, Warm, Dry, Intact Extremeties Extremities Exam: No Edema, Pedal Pulses Palpable Neurologic Neuro Exam: Alert, Awake, Oriented, Speech Clear, Moving All Extremities Assessment/Plan Discussed Condition With: Patient Assessment Summary: Anemia of CKD, CHF, Hypertension, End Stage Renal Disease Electrolyte Assessment: Hyperkalemia Problem List: (1) ESRD (end stage renal disease) Plan: HD MWF, done yesterday c/o CP throat pain lack of energy cardiology following has small vessel disease severe thrombocytopenia Volume status stable Hyperkalemia was corrected no acute renal concerns avoid IVF, gadolinium functioning AVF for dialysis she has existing outpatient HD arrangements, can be discharged when cleared by all consulting physicians (2) CAD (coronary artery disease) Plan: adjust UF with dialysis as tolerated/required cardiology following sp cath with stent to LAD, EF 45% no further PCI per Dr. Valentin she was evaluated by palliative , declined hospice (3) Anemia Plan: on epogen with HD Hb stable goal Hb >10 transfuse PRN (4) Atrial fibrillation Plan: Rate controlled follow with cardiology (5) Thrombocytopenia Plan: acute antiplatelets have been hold no heparin with HD goal 50K, can resume antiplatelets then hematology has evaluated monitor for bleeding Plan patient was seen and examined. Agree with above assessment and plan. Patient developed hypotension after dialysis, AVF recannulated and 1 liter of IVF given back. Prognosis is poor. Hematology note was reviewed. Thrombocytopenia thought to be due to Aggrostat. Problem Qualifiers (1) CAD (coronary artery disease): Qualified Code: I25.10 - Coronary artery disease due to calcified coronary lesion (2) Anemia: Jack Gibson MD May 20, 2016 15:25
[2016-05-20] MEDS: DEXAMETHASONE SOD PHOS 4 MG/ML VIAL IV PUSH SCH ×2 (17:00→20:38)
[2016-05-20] MEDS: ZOLPIDEM TARTRATE 5 MG TAB PO PRN (20:37)
[2016-05-20] MEDS: SODIUM CHLORIDE 0.9% FLUSH 10 ML FLUSH SCH (20:39)
[2016-05-21] VITALS (15 sets, daily range): BP systolic 116–145; BP diastolic 56–73; PULSE 67–76; RESP 18; TEMP 98.4–98.8; O2SAT 94–100
[2016-05-21] MEDS: RESP: ALBUTEROL 2.5 MG/IPRATROPIUM 0.5 MG NEB (SCH) NEB (03:43)
[2016-05-21] MEDS: NITROGLYCERIN 2% OINT 1 GM PACKET TOPICAL SCH ×4 (04:22→22:29)
[2016-05-21] MEDS: DEXAMETHASONE SOD PHOS 4 MG/ML VIAL IV PUSH SCH ×4 (04:22→22:29)
[2016-05-21] MEDS: INSULIN ASPART SUPPLEMENTAL SCALE SQ SCH ×4 (04:26→17:55)
[2016-05-21] MEDS: traMADol HCL 50 MG TAB PO PRN (05:24)
[2016-05-21 07:31] LABS: HEMATOCRIT 24.5 % (35.0-46.0); MEAN CELL VOLUME 88.2 FL (80.0-100.0); MEAN CORPUSCULAR HEMOGLOBIN 30.7 PG (27.0-34.0); MEAN CORPUSCULAR HGB CONC 34.9 % (32.0-36.0); RED BLOOD COUNT 2.78 MIL/MM3 (4.00-5.30); RED CELL DISTRIBUTION WIDTH 18.5 % (11.6-17.2); WHITE BLOOD COUNT 7.5 TH/MM3 (4.0-11.0)
[2016-05-21 07:32] LABS: HEMO FLAGS AUTO DIFF
[2016-05-21 07:35] LABS: PLATELET COUNT 19 TH/MM3 (150-450)
[2016-05-21 07:36] LABS: ALKALINE PHOSPHATASE 76 U/L (45-117); ALT (GPT) 16 U/L (10-53); ANION GAP 9 MEQ/L (5-15); AST (GOT) 26 U/L (15-37); BICARBONATE 26.3 MEQ/L (21.0-32.0); CHLORIDE 96 MEQ/L (98-107); GLOMERULAR FILTRATION RATE 10 ML/MIN (>89); SODIUM (NA) 131 MEQ/L (136-145); TOTAL BILIRUBIN ADULT 0.5 MG/DL (0.2-1.0)
[2016-05-21 07:45] LABS: BLOOD UREA NITROGEN 49 MG/DL (7-18)
[2016-05-21] MEDS: amLODIPine BESYLATE 5 MG TAB PO SCH (09:10)
[2016-05-21] MEDS: DOCUSATE SODIUM 100 MG CAP PO SCH ×2 (09:10→20:06)
[2016-05-21] MEDS: CARVEDILOL 12.5 MG TAB PO SCH ×2 (09:10→20:05)
[2016-05-21] MEDS: SEVELAMER CARBONATE 800 MG TAB PO SCH ×3 (09:10→17:55)
[2016-05-21] MEDS: MEGESTROL ACETATE SUSP 400 MG/10 ML CUP PO SCH (09:10)
[2016-05-21 09:38] LABS: PLATELET ESTIMATE SMEAR RARE (NORMAL); PLATELET MORPHOLOGY ENLARGED (NORMAL); POLYS (SEG NEUTROPHILS) 80 % (16-70); SCAN/DIFF FINAL DIFF MANUAL; WBC DIFF SAMPLE 100
[2016-05-21 09:39] LABS: ACANTHOCYTES OCC (NORMAL)
--- NOTE | 2016-05-21 09:50 | HHI.PR ---
Subjective Remarks as per RN patient crying this am patient c/o chest pain - more like aching she states, denies pressure K elevated at 6.0 patient states feels depressed and frustrated because of current health situation denies fevers/chills sob much improved - feels sore throat Platelets trending up Objective Vitals Vital Signs Date Time Temp Pulse Resp B/P Pulse Ox O2 Delivery O2 Flow Rate FiO2 05/21/16 08:00 Nasal Cannula 2.00 05/21/16 08:00 98.4 73 18 141/67 99 05/21/16 08:00 71 05/21/16 07:42 72 05/21/16 07:35 100 Nasal Cannula 2.00 05/21/16 06:00 71 05/21/16 04:00 71 05/21/16 04:00 Nasal Cannula 2.00 05/21/16 04:00 71 18 145/73 100 05/21/16 02:00 67 05/21/16 00:00 67 05/21/16 00:00 98.8 67 18 127/61 99 05/21/16 00:00 Nasal Cannula 2.00 05/20/16 22:00 74 05/20/16 20:00 98.5 72 18 143/66 100 05/20/16 20:00 Nasal Cannula 2.00 05/20/16 20:00 72 05/20/16 19:56 100 Nasal Cannula 2.00 05/20/16 18:00 78 05/20/16 16:00 78 05/20/16 16:00 100 Nasal Cannula 2.00 05/20/16 16:00 98.6 101 18 148/75 100 05/20/16 14:00 87 05/20/16 12:00 98.6 82 18 147/75 100 05/20/16 12:00 87 05/20/16 12:00 100 Nasal Cannula 2.00 05/20/16 10:00 72 I/O 05/20/16 05/20/16 05/20/16 05/21/16 05/21/16 05/21/16 07:00 15:00 23:00 07:00 15:00 23:00 Intake Total 120 ml 350 ml 720 ml 240 ml Output Total 0 ml 0 ml Balance 120 ml 350 ml 720 ml 240 ml Intake Oral 120 ml 250 ml 720 ml 240 ml IV Total 100 ml Output Urine Total 0 ml 0 ml # Voids 1 Result Diagram: 05/21/16 0620 05/21/16 0620 Imaging Last Impressions Head CT 05/19/16 0000 Signed Impressions: Service Date/Time: Thursday, May 19, 2016 14:18 - CONCLUSION: No acute disease. Chano Jimenes MD Chest X-Ray 05/18/16 0000 Signed Impressions: Service Date/Time: May 17:02 - CONCLUSION: Stable chest appearance Tristian Durant MD Aorta CTA 05/10/16 0000 Signed Impressions: Service Date/Time: Tuesday, May 10, 2016 15:13 - CONCLUSION: 1. There is no evidence of aortic dissection. The widening of the mediastinum seen on the chest x-ray appears to represent a combination of pleural fluid and atelectatic lung along the descending thoracic aorta. 2. There are COPD changes within the pulmonary parenchyma. 3. There are small bilateral effusions. 4. The abdominal aorta and iliac vessels are intact. Yehuda Hanna MD Objective Remarks GENERAL: Patient with no acute distress. tearful. SKIN: Warm and dry. HEAD: Atraumatic. Normocephalic. EYES: Pupils equal and round. No scleral icterus. No injection or drainage. ENT: No nasal bleeding or discharge. Mucous membranes pink and moist. NECK: Trachea midline. No JVD. CARDIOVASCULAR: Regular rate and rhythm. systolic II/ murmur best hear in the 2nd left parasternal border. RESPIRATORY: Clear to auscultation. No accesory muscle use although seems to be mildly dyspneic still. GASTROINTESTINAL: Abdomen soft, non-tender, nondistended. Hepatic and splenic margins not palpable. MUSCULOSKELETAL: Extremities without clubbing, cyanosis, or edema. No obvious deformities. NEUROLOGICAL: Awake and alert. No obvious cranial nerve deficits. Motor grossly within normal limits. Five out of 5 muscle strength in the arms and legs. Normal speech. PSYCHIATRIC: Appropriate mood and affect; insight and judgment normal. Procedures Cardiac Catheterization on 05/16/16 - as per report bare metal stent placed to the mid LAD. Intubation and mechanical ventilation due to PEA arrest after Cardiac Catheterization. Medications and IVs Current Medications Medications (Trade) Dose Ordered Sig/Thierry Route Start Time Stop Time Status Last Admin (Xanax) 0.25 mg Q8H PRN PO 4/4/17 17:15 Hold 05/13/16 10:28 (Coreg) 12.5 mg Q12HR PO 05/09/16 21:00 05/21/16 09:10 (Colace) 100 mg BID PO 05/09/16 21:00 05/21/16 09:10 (Renvela) 800 mg TID PO 05/09/16 18:00 05/21/16 09:10 (Xalatan 0.005% Opth Soln) 1 drop HS PRN EACH EYE 05/09/16 17:30 (Tylenol) 650 mg Q4H PRN PO 05/09/16 17:30 05/14/16 01:11 (Zofran Inj) 4 mg Q6H PRN IVP 05/09/16 17:30 (Dulcolax Supp) 10 mg DAILY PRN RECTAL 05/09/16 17:30 (Ambien) 5 mg HS PRN PO 05/09/16 17:30 05/20/16 20:37 (Narcan Inj) 0.4 mg UNSCH PRN IV 05/09/16 17:30 (Megace Liq) 800 mg DAILY PO 05/10/16 09:00 05/21/16 09:10 (Norvasc) 5 mg DAILY PO 05/14/16 09:00 05/21/16 09:10 (Ultram) 50 mg Q12H PRN PO 05/14/16 10:30 05/21/16 05:24 (NS Flush) 2 ml UNSCH PRN .XX 05/16/16 15:00 (NS Flush) 2 ml BID .XX 05/16/16 21:00 05/20/16 20:39 (Aspirin Chew) 162 mg DAILY PO 05/17/16 09:00 Hold (D50w (Vial) Inj) 25 ml UNSCH PRN IV PUSH 05/17/16 04:45 (Glucagon Inj) 1 mg UNSCH PRN OTHER 05/17/16 04:45 (NovoLOG SUPPLEMENTAL SCALE) 1 Q6H SQ 05/17/16 06:00 05/21/16 04:26 Nitroglycerin 0.4 mg 0.4 mg Q5M PRN SL 05/17/16 15:00 05/20/16 04:08 (Nitroglycerin-Dextrose Inj) 250 ml @ 0 mls/hr TITRATE IV 05/17/16 16:00 Nitroglycerin 2 inch 2 inch Q6H TOPICAL 05/17/16 16:00 05/21/16 04:22 Sodium Chloride 1,000 ml @ 0 mls/hr Q0M PRN IV 05/19/16 10:08 Sodium Chloride 1,000 ml @ 200 mls/hr Q5H PRN IV 05/19/16 10:08 (NS 1000 ml Inj) 1,000 ml @ 0 mls/hr Q0M PRN IV 05/19/16 10:08 (Mannitol Inj) 12.5 gm UNSCH PRN IV 05/19/16 10:15 (Albumin 25% Inj) 25 gm UNSCH PRN IV 05/19/16 10:15 (NS Flush) 5 ml UNSCH PRN IV FLUSH 05/19/16 10:15 (Gentamicin (Dialysis) Inj) 20 mg UNSCH PRN IV 05/19/16 10:15 (Zofran Inj) 4 mg UNSCH PRN IV 05/19/16 10:15 (Tylenol) 650 mg UNSCH PRN PO 05/19/16 10:15 (Benadryl) 25 mg UNSCH PRN PO 05/19/16 10:15 (Nitrostat Sl) 0.4 mg UNSCH PRN SL 05/19/16 10:15 (Catapres) 0.1 mg UNSCH PRN PO 05/19/16 10:15 (Epogen Inj) 10,000 units UNSCH PRN IV 05/19/16 10:15 (Gelfoam 12 Mm/7 Mm Top) 1 foam UNSCH PRN TOP 05/19/16 10:15 (Decadron Inj) 4 mg Q6H IV PUSH 05/20/16 17:00 05/21/16 04:22 Urinary Catheter: No Vascular Central Line Catheter: No A/P Problem List: (1) Unstable angina ICD Code: I20.0 Status: Resolved (2) Paroxysmal atrial fibrillation ICD Code: I48.0 Status: Acute (3) Mediastinal widening ICD Code: R93.8 Status: Acute (4) COPD (chronic obstructive pulmonary disease) ICD Code: J44.9 Status: Acute (5) ESRD (end stage renal disease) ICD Code: N18.6 Status: Acute (6) Severe anemia ICD Code: D64.9 Status: Acute (7) Hypertension ICD Code: I10 Status: Acute (8) Hyponatremia ICD Code: E87.1 Status: Acute (9) Hyperkalemia ICD Code: E87.5 Status: Acute (10) Change in mental status ICD Code: R41.82 Status: Resolved (11) Hypotension ICD Code: I95.9 Status: Resolved (12) Respiratory distress ICD Code: R06.00 Status: Acute (13) Thrombocytopenia ICD Code: D69.6 Status: Acute Plan: Severe thrombocytopenia due to Aggrastat. Antiplatelets have been discontinued since platelet came down to 5000. The patient status post 1 unit of platelets. Hematology consulted. Platelets trending up today from 01/22/19 K. Continue to monitor CBC. Platelet transfusion trigger: Platelets less than 10,000 or active bleeding. Antiplatelet medications will be resumed after platelets more than 50 K. (14) Depression (emotion) ICD Code: F32.9 Status: Acute Plan: Patient feels depressed, very tearful. She states that she has been previously many years ago on antidepressants. I will consult psychiatry for further assessment and management. Assessment and Plan (1) Unstable angina Plan: Cardiology following. Patient status post left heart catheterization with stent placement to the LAD as per catheterization report. Patient's cardiac catheterization was complicated by a PEA arrest and hypoxemia which required ACLS and intubation as well as mechanical ventilation. Anesthesia intubated the patient. The patient had a return of spontaneous circulation. Patient was then seen in consultation by the stable helper who referred the patient. The patient was extubated on 05/17/16. Her stay was also complicated by thrombus cytopenia for which hematology was consulted and thought to be secondary to Aggrenox at that time. The patient now complains of chest pain described as pressure 6/10 substernal and nonradiating. She is also mildly dyspneic. The patient is a very high risk for in-stent thrombosis since her at the platelet therapy was held due to thrombocytopenia possibly caused by Aggrastat. I will order stat EKG, cardiac enzymes, and will RX 1 gm of intravenous acetaminophen (Ofirmev). As per cardiology recommendation, Dr. Valentin does not think that this is a life-threatening chest pain and this could be due to jailed 90% ostial small dx vessel and/or noncardiacThe Dr. Valentin states that the patient is at high risk for catheterization due to low platelets. Continue as needed nitroglycerin drip. The patient has been cleared from the vascular standpoint to be discharged. Hospice care recommended. (2) Paroxysmal atrial fibrillation Plan: On Eliquis. Continue carvedilol for rate control. Paroxysmal A. fib is rate controlled. (3) Mediastinal widening Plan: Negative CTA. (4) COPD (chronic obstructive pulmonary disease) Plan: Seems stable. Not on any inhalers. (5) ESRD (end stage renal disease) Plan: Nephrology following. Hemodialysis as per nephrology schedule on Mondays , Sunday and Sunday. Patient has been cleared by nephrology for DC. (6) Severe anemia Plan: Patient initially admitted with hemoglobin of 6.8. Status post transfusion of 2 units of packed blood cells. Continue to monitor hemoglobin. Ocult blood in feces checked and negative. Iron studies consistent with anemia of chronic disease with marrow of 24, TIBC 116, percent saturation 11.1 and 935. hemoglobin stable - 10.8 (7) Hypertension Plan: Bp somewhat on lower side. Amlodipine dose decreased to 5 mg daily. Bp now better. (8) Hyponatremia Plan: Likely due to hypervolemic hyponatremia. Sodium now 133. Patient getting hemodialysis. (9) Hyperkalemia Plan: K 5.7. Management as per nephrology. Patient getting hemodialysis. Monitor BMP. 05/20 labs could not be drawn earlier today. This will be obtained today. Follow-up. 05/21 K 6.0. Will give D50 IV and 10 units of IV regular insulin. Will also order Kayexalate. Monitor BMP. (10) Change in mental status Plan: As per RN patient having episodes of blank stare on 05/19. I will order a stat head ct and an eeg to r/o seizures. Head CT showed no acute disease. EEG with changes consistent with encephalopathy. (11) Hypotension Plan: Episodic during dialysis. Resolved. Continue to monitor vital signs. (12) Respiratory distress Plan: Ordered Dexamethasone 4 mg IV Q 6 hrs first dose STAT. Also ordered racemic epinephrine nebulizer treatment stat. The case was discussed with Dr. Mena from intensive care medicine. The patient is hemodynamically stable, satting 100% on 2 L nasal cannula and respiratory distress seemed to improve after treatment. I will keep the patient on my service. 05/21 Breathing is much improved, will Dc Dexamethasone. continue supplemental o2 as needed. GI prophylaxis: Continue PPI DVT prophylaxis: SCDs, on eliquis. Discharge Planning Continue to monitor in the ICU for now. Problem Qualifiers (1) COPD (chronic obstructive pulmonary disease): (2) Hypertension: Qualified Code: I10 - Essential hypertension David Giron MD May 21, 2016 09:50
[2016-05-21] MEDS ORDERED: INSULIN HUMAN REGULAR 1,000 UNITS/10 ML VIAL IV PUSH ONE (10:00)
[2016-05-21] MEDS ORDERED: DEXTROSE 50% IN WATER 50 ML VIAL(D50) IV PUSH ONE (10:00)
[2016-05-21] MEDS ORDERED: SODIUM POLYSTYRENE SULFONATE SUSP 15 GM/60 ML CUP RECTAL ONE (10:15)
--- NOTE | 2016-05-21 12:50 | PD.CARD.PN ---
Subjective Subjective Remarks alert in nad Objective Vital Signs / I&O Vital Signs Date Time Temp Pulse Resp B/P Pulse Ox O2 Delivery O2 Flow Rate FiO2 05/21/16 12:00 98.4 71 18 124/67 99 05/21/16 12:00 71 05/21/16 12:00 Nasal Cannula 2.00 05/21/16 10:00 71 05/21/16 08:00 Nasal Cannula 2.00 05/21/16 08:00 98.4 73 18 141/67 99 05/21/16 08:00 71 05/21/16 07:42 72 05/21/16 07:35 100 Nasal Cannula 2.00 05/21/16 06:00 71 05/21/16 04:00 71 05/21/16 04:00 Nasal Cannula 2.00 05/21/16 04:00 71 18 145/73 100 05/21/16 02:00 67 05/21/16 00:00 67 05/21/16 00:00 98.8 67 18 127/61 99 05/21/16 00:00 Nasal Cannula 2.00 05/20/16 22:00 74 05/20/16 20:00 98.5 72 18 143/66 100 05/20/16 20:00 Nasal Cannula 2.00 05/20/16 20:00 72 05/20/16 19:56 100 Nasal Cannula 2.00 05/20/16 18:00 78 05/20/16 16:00 78 05/20/16 16:00 100 Nasal Cannula 2.00 05/20/16 16:00 98.6 101 18 148/75 100 05/20/16 14:00 87 I/O 05/20/16 05/20/16 05/20/16 05/21/16 05/21/16 05/21/16 07:00 15:00 23:00 07:00 15:00 23:00 Intake Total 120 ml 350 ml 720 ml 240 ml Output Total 0 ml 0 ml Balance 120 ml 350 ml 720 ml 240 ml Intake Oral 120 ml 250 ml 720 ml 240 ml IV Total 100 ml Output Urine Total 0 ml 0 ml # Voids 1 Physical Exam GENERAL: SKIN: Warm and dry. HEAD: Normocephalic. EYES: No scleral icterus. No injection or drainage. NECK: Supple, trachea midline. No JVD or lymphadenopathy. CARDIOVASCULAR: Regular rate and rhythm without murmurs, gallops, or rubs. RESPIRATORY: Breath sounds equal bilaterally. No accessory muscle use. GASTROINTESTINAL: Abdomen soft, non-tender, nondistended. MUSCULOSKELETAL: No cyanosis, or edema. BACK: Nontender without obvious deformity. No CVA tenderness. Laboratory Laboratory Tests Test 05/20/16 05/21/16 12:55 06:20 White Blood Count 10.1 TH/MM3 7.5 TH/MM3 Red Blood Count 2.93 MIL/MM3 2.78 MIL/MM3 Hemoglobin 8.8 GM/DL 8.5 GM/DL Hematocrit 26.3 % 24.5 % Mean Corpuscular Volume 89.8 FL 88.2 FL Mean Corpuscular Hemoglobin 30.0 PG 30.7 PG Mean Corpuscular Hemoglobin 33.3 % 34.9 % Concent Red Cell Distribution Width 19.1 % 18.5 % Platelet Count 12 TH/MM3 19 TH/MM3 Mean Platelet Volume 9.9 FL 10.1 FL Neutrophils (%) (Auto) 79.9 % % Lymphocytes (%) (Auto) 7.9 % % Monocytes (%) (Auto) 5.0 % % Eosinophils (%) (Auto) 6.2 % % Basophils (%) (Auto) 1.0 % % Neutrophils # (Auto) 8.1 TH/MM3 TH/MM3 Lymphocytes # (Auto) 0.8 TH/MM3 TH/MM3 Monocytes # (Auto) 0.5 TH/MM3 TH/MM3 Eosinophils # (Auto) 0.6 TH/MM3 TH/MM3 Basophils # (Auto) 0.1 TH/MM3 TH/MM3 CBC Comment AUTO DIFF AUTO DIFF Differential Comment AUTO DIFF FINAL DIFF CONFIRMED MANUAL Platelet Estimate RARE RARE Platelet Morphology Comment NORMAL ENLARGED Acanthocytes OCC OCC Haptoglobin 197 MG/DL Sodium Level 135 MEQ/L 131 MEQ/L Potassium Level 5.1 MEQ/L 6.0 MEQ/L Chloride Level 97 MEQ/L 96 MEQ/L Carbon Dioxide Level 32.8 MEQ/L 26.3 MEQ/L Anion Gap 5 MEQ/L 9 MEQ/L Blood Urea Nitrogen 42 MG/DL 49 MG/DL Creatinine 4.66 MG/DL 5.14 MG/DL Estimat Glomerular Filtration 11 ML/MIN 10 ML/MIN Rate Random Glucose 94 MG/DL 108 MG/DL Calcium Level 8.6 MG/DL 8.9 MG/DL Lactate Dehydrogenase 306 U/L Differential Total Cells 100 Counted Neutrophils % (Manual) 80 % Lymphocytes % 13 % Monocytes % 7 % Neutrophils # (Manual) 6.0 TH/MM3 Hematology Comments Total Bilirubin 0.5 MG/DL Aspartate Amino Transf 26 U/L (AST/SGOT) Alanine Aminotransferase 16 U/L (ALT/SGPT) Alkaline Phosphatase 76 U/L Total Protein 5.8 GM/DL Albumin 2.8 GM/DL Assessment and Plan Problem List: (1) Atrial fibrillation, new onset (2) Aortic stenosis (3) Hypertension (4) Hyperlipidemia (5) Depression (6) CAD (coronary artery disease) (7) Chest pain (8) Cardiomyopathy Assessment and Plan 1.) CAD - s/p pci bms mid lad, small diagonal vessel jailed but patent, dapt held due to thrombocytopenia; restart dapt when plt>50; chest pain/elevated troponin due to jailed 90% ostial small dx vessel and/or noncardiac, do not think this is a life threatening stenosis or that requires admission, o/w patient is completely revascularized 2.) PAF - in nsr, assymptomatic, eliquis held d/t thrombocytopenia 3.) PEA - suspect d/t apnea from fentanyl and/or versed, trop elevated due to pea and esrd, trending down pci; patient is hospice, do not rec recurrent cath due to high risk d/t thrombocytopenia, pea from conscience sedation from fentanyl/versed and inability to access diagonal vessel d/t vessel tortuosity and 90 degreee angle off lad; rec palliative care consult, prn ntg 4.) Ok to dc from cv standpoint, f/u with me hellen; rec hospice, patient undecided 6.) thrombocytopenia - transfuse per hematology 6.) Stridor - possibly related to narcotics, known allergy to dilaudid, mso4, pea/apnea wuth fentanyl now stridor with percocet, rec dc percocet Problem Qualifiers (1) Hypertension: Qualified Code: I10 - Essential hypertension (2) CAD (coronary artery disease): Qualified Code: I25.10 - Coronary artery disease due to calcified coronary lesion (3) Chest pain: Qualified Code: R07.2 - Precordial pain Zohaib Valentin MD May 21, 2016 12:50
[2016-05-21 12:57] LABS: BICARBONATE 28.7 MEQ/L (21.0-32.0); POTASSIUM 5.9 MEQ/L (3.5-5.1)
[2016-05-21] MEDS ORDERED: SODIUM POLYSTYRENE SULFONATE SUSP 15 GM/60 ML CUP PO ONE (14:00)
--- NOTE | 2016-05-21 15:02 | HHI.NPPN ---
Subjective General Problems: Anemia Renal Failure: Chronic, End Stage Renal Disease Review of Systems General Constitutional: Fatigue Cardiovascular Cardiac: Chest Pain Objective Data Data 05/20/16 05/21/16 19:00 07:00 Intake Total 350 ml 960 ml Output Total 0 ml Balance 350 ml 960 ml Intake Oral 250 ml 960 ml IV Total 100 ml Output Urine Total 0 ml Vital Signs Date Time Temp Pulse Resp B/P Pulse Ox O2 Delivery O2 Flow Rate FiO2 05/21/16 14:00 68 05/21/16 12:00 98.4 71 18 124/67 99 05/21/16 12:00 71 05/21/16 12:00 Nasal Cannula 2.00 05/21/16 10:00 71 05/21/16 08:00 Nasal Cannula 2.00 05/21/16 08:00 98.4 73 18 141/67 99 05/21/16 08:00 71 05/21/16 07:42 72 05/21/16 07:35 100 Nasal Cannula 2.00 05/21/16 06:00 71 05/21/16 04:00 71 05/21/16 04:00 Nasal Cannula 2.00 05/21/16 04:00 71 18 145/73 100 05/21/16 02:00 67 05/21/16 00:00 67 05/21/16 00:00 98.8 67 18 127/61 99 05/21/16 00:00 Nasal Cannula 2.00 05/20/16 22:00 74 05/20/16 20:00 98.5 72 18 143/66 100 05/20/16 20:00 Nasal Cannula 2.00 05/20/16 20:00 72 05/20/16 19:56 100 Nasal Cannula 2.00 05/20/16 18:00 78 05/20/16 16:00 78 05/20/16 16:00 100 Nasal Cannula 2.00 05/20/16 16:00 98.6 101 18 148/75 100 -: 05/21/16 0620 05/21/16 1210 Physical Exam General Appearance: Well Developed, Well Nourished, No Acute Distress, Comfortable, Malnourished Eyes Eye Exam: Pupils Equal Throat Throat Exam: Oral Mucosa [place] & Moist Neck Neck Exam: Neck Supple Pulmonary Resp Exam: Clear Bilaterally, Breath Sounds Equal, No Distress Cardiology CV Exam: Regular, Normal Sinus Rhythm, Good Perfusion, Dyspnea on Exertion Gastrointestinal/Abdomen GI Exam: Soft, Non-Tender, Bowel Sounds Present Musculoskeletal MS Exam: Joints Intact, Normal Tone Integumentary Skin Exam: Clear, Warm, Dry, Intact Extremeties Extremities Exam: No Edema, Pedal Pulses Palpable Neurologic Neuro Exam: Alert, Awake, Oriented, Speech Clear, Moving All Extremities Assessment/Plan Discussed Condition With: Patient Assessment Summary: Anemia of CKD, CHF, Hypertension, End Stage Renal Disease Electrolyte Assessment: Hyperkalemia Problem List: (1) ESRD (end stage renal disease) Plan: HD MWF, done yesterday c/o CP throat pain lack of energy cardiology following has small vessel disease severe thrombocytopenia Volume status stable Hyperkalemia in her potassium was high she is given treatment and again I gave her the order of Kayexalate for potassium of 5.9 no acute renal concerns avoid IVF, gadolinium functioning AVF for dialysis she has existing outpatient HD arrangements, can be discharged when cleared by all consulting physicians (2) CAD (coronary artery disease) Plan: adjust UF with dialysis as tolerated/required cardiology following sp cath with stent to LAD, EF 45% no further PCI per Dr. Valentin she was evaluated by palliative , declined hospice (3) Anemia Plan: on epogen with HD Hb stable goal Hb >10 transfuse PRN (4) Atrial fibrillation Plan: Rate controlled follow with cardiology (5) Thrombocytopenia Plan: acute antiplatelets have been hold no heparin with HD goal 50K, can resume antiplatelets then hematology has evaluated monitor for bleeding Plan patient was seen and examined. Agree with above assessment and plan. Patient developed hypotension after dialysis, AVF recannulated and 1 liter of IVF given back. Prognosis is poor. Hematology note was reviewed. Thrombocytopenia thought to be due to Aggrostat. Problem Qualifiers (1) CAD (coronary artery disease): Qualified Code: I25.10 - Coronary artery disease due to calcified coronary lesion (2) Anemia: Jack Gibson MD May 21, 2016 15:02
[2016-05-21] MEDS: SODIUM CHLORIDE 0.9% FLUSH 10 ML FLUSH SCH ×2 (20:06→21:00)
[2016-05-22] VITALS (9 sets, daily range): BP systolic 109–152; BP diastolic 59–69; PULSE 69–101; RESP 14–18; TEMP 98.3–98.8; O2SAT 95–100
[2016-05-22] MEDS: INSULIN ASPART SUPPLEMENTAL SCALE SQ SCH ×5 (04:26→23:23)
[2016-05-22] MEDS: DEXAMETHASONE SOD PHOS 4 MG/ML VIAL IV PUSH SCH ×4 (04:26→21:15)
[2016-05-22] MEDS: NITROGLYCERIN 2% OINT 1 GM PACKET TOPICAL SCH ×4 (04:26→21:16)
[2016-05-22 06:21] LABS: HEMATOCRIT 25.1 % (35.0-46.0); MEAN CELL VOLUME 91.1 FL (80.0-100.0); MEAN CORPUSCULAR HEMOGLOBIN 31.1 PG (27.0-34.0); MEAN CORPUSCULAR HGB CONC 34.1 % (32.0-36.0); PLATELET COUNT 79 TH/MM3 (150-450); RED BLOOD COUNT 2.75 MIL/MM3 (4.00-5.30); RED CELL DISTRIBUTION WIDTH 18.5 % (11.6-17.2); WHITE BLOOD COUNT 9.6 TH/MM3 (4.0-11.0)
[2016-05-22 06:29] LABS: BICARBONATE 28.9 MEQ/L (21.0-32.0); POTASSIUM 5.4 MEQ/L (3.5-5.1); REVIEW FLAG FINAL
--- NOTE | 2016-05-22 08:08 | HHI.PR ---
Subjective Remarks patient denies cp/sob stable vital signs patient feels better Objective Vitals Vital Signs Date Time Temp Pulse Resp B/P Pulse Ox O2 Delivery O2 Flow Rate FiO2 05/22/16 06:00 76 05/22/16 04:00 69 05/22/16 04:00 98.4 69 14 150/69 100 05/22/16 04:00 97 Nasal Cannula 3.00 05/22/16 02:00 72 05/22/16 00:00 70 05/22/16 00:00 100 Nasal Cannula 5.00 05/22/16 00:00 98.6 70 14 137/66 100 05/21/16 22:00 73 05/21/16 20:00 76 05/21/16 20:00 100 Nasal Cannula 5.00 05/21/16 20:00 98.5 76 18 116/56 100 05/21/16 19:23 94 Nasal Cannula 5.00 05/21/16 18:00 74 05/21/16 16:00 98.4 71 18 135/67 99 05/21/16 16:00 Nasal Cannula 2.00 05/21/16 16:00 68 05/21/16 16:00 71 05/21/16 14:00 68 05/21/16 12:00 98.4 71 18 124/67 99 05/21/16 12:00 71 05/21/16 12:00 Nasal Cannula 2.00 05/21/16 10:00 71 I/O 05/21/16 05/21/16 05/21/16 05/22/16 05/22/16 05/22/16 07:00 15:00 23:00 07:00 15:00 23:00 Intake Total 240 ml 280 ml 240 ml 240 ml Output Total 0 ml 0 ml 0 ml Balance 240 ml 280 ml 240 ml 240 ml Intake Oral 240 ml 280 ml 240 ml 240 ml Output Urine Total 0 ml 0 ml Stool Total 0 ml 0 ml Result Diagram: 05/22/16 0505/22/16 0511 Imaging Last Impressions Head CT 05/19/16 0000 Signed Impressions: Service Date/Time: Thursday, May 19, 2016 14:18 - CONCLUSION: No acute disease. Chano Jimenes MD Chest X-Ray 05/18/16 0000 Signed Impressions: Service Date/Time: May 17:02 - CONCLUSION: Stable chest appearance Tristian Durant MD Aorta CTA 05/10/16 0000 Signed Impressions: Service Date/Time: Tuesday, May 10, 2016 15:13 - CONCLUSION: 1. There is no evidence of aortic dissection. The widening of the mediastinum seen on the chest x-ray appears to represent a combination of pleural fluid and atelectatic lung along the descending thoracic aorta. 2. There are COPD changes within the pulmonary parenchyma. 3. There are small bilateral effusions. 4. The abdominal aorta and iliac vessels are intact. Yehuda Hanna MD Objective Remarks GENERAL: Patient with no acute distress. tearful. SKIN: Warm and dry. HEAD: Atraumatic. Normocephalic. EYES: Pupils equal and round. No scleral icterus. No injection or drainage. ENT: No nasal bleeding or discharge. Mucous membranes pink and moist. NECK: Trachea midline. No JVD. CARDIOVASCULAR: Regular rate and rhythm. systolic II/ murmur best hear in the 2nd left parasternal border. RESPIRATORY: Clear to auscultation. No accesory muscle use although seems to be mildly dyspneic still. GASTROINTESTINAL: Abdomen soft, non-tender, nondistended. Hepatic and splenic margins not palpable. MUSCULOSKELETAL: Extremities without clubbing, cyanosis, or edema. No obvious deformities. NEUROLOGICAL: Awake and alert. No obvious cranial nerve deficits. Motor grossly within normal limits. Five out of 5 muscle strength in the arms and legs. Normal speech. PSYCHIATRIC: Appropriate mood and affect; insight and judgment normal. Procedures Cardiac Catheterization on 05/16/16 - as per report bare metal stent placed to the mid LAD. Intubation and mechanical ventilation due to PEA arrest after Cardiac Catheterization. Medications and IVs Current Medications Medications (Trade) Dose Ordered Sig/Thierry Route Start Time Stop Time Status Last Admin (Xanax) 0.25 mg Q8H PRN PO 05/09/16 17:15 Hold 05/13/16 10:28 (Coreg) 12.5 mg Q12HR PO 05/09/16 21:00 05/21/16 20:05 (Colace) 100 mg BID PO 05/09/16 21:00 05/21/16 09:10 (Renvela) 800 mg TID PO 05/09/16 18:00 05/21/16 17:55 (Xalatan 0.005% Opth Soln) 1 drop HS PRN EACH EYE 05/09/16 17:30 (Tylenol) 650 mg Q4H PRN PO 05/09/16 17:30 05/14/16 01:11 (Zofran Inj) 4 mg Q6H PRN IVP 05/09/16 17:30 (Dulcolax Supp) 10 mg DAILY PRN RECTAL 05/09/16 17:30 (Ambien) 5 mg HS PRN PO 05/09/16 17:30 05/20/16 20:37 (Narcan Inj) 0.4 mg UNSCH PRN IV 05/09/16 17:30 (Megace Liq) 800 mg DAILY PO 05/10/16 09:00 05/21/16 09:10 (Norvasc) 5 mg DAILY PO 05/14/16 09:00 05/21/16 09:10 (Ultram) 50 mg Q12H PRN PO 05/14/16 10:30 05/21/16 05:24 (NS Flush) 2 ml UNSCH PRN .XX 05/16/16 15:00 (NS Flush) 2 ml BID .XX 05/16/16 21:00 05/21/16 21:00 (Aspirin Chew) 162 mg DAILY PO 05/17/16 09:00 Hold (D50w (Vial) Inj) 25 ml UNSCH PRN IV PUSH 05/17/16 04:45 (Glucagon Inj) 1 mg UNSCH PRN OTHER 05/17/16 04:45 (NovoLOG SUPPLEMENTAL SCALE) 1 Q6H SQ 05/17/16 06:00 05/21/16 04:26 Nitroglycerin 0.4 mg 0.4 mg Q5M PRN SL 05/17/16 15:00 05/20/16 04:08 (Nitroglycerin-Dextrose Inj) 250 ml @ 0 mls/hr TITRATE IV 05/17/16 16:00 Nitroglycerin 2 inch 2 inch Q6H TOPICAL 05/17/16 16:00 05/22/16 04:26 Sodium Chloride 1,000 ml @ 0 mls/hr Q0M PRN IV 05/19/16 10:08 Sodium Chloride 1,000 ml @ 200 mls/hr Q5H PRN IV 05/19/16 10:08 (NS 1000 ml Inj) 1,000 ml @ 0 mls/hr Q0M PRN IV 05/19/16 10:08 (Mannitol Inj) 12.5 gm UNSCH PRN IV 05/19/16 10:15 (Albumin 25% Inj) 25 gm UNSCH PRN IV 05/19/16 10:15 (NS Flush) 5 ml UNSCH PRN IV FLUSH 05/19/16 10:15 (Gentamicin (Dialysis) Inj) 20 mg UNSCH PRN IV 05/19/16 10:15 (Zofran Inj) 4 mg UNSCH PRN IV 05/19/16 10:15 (Tylenol) 650 mg UNSCH PRN PO 05/19/16 10:15 (Benadryl) 25 mg UNSCH PRN PO 05/19/16 10:15 (Nitrostat Sl) 0.4 mg UNSCH PRN SL 05/19/16 10:15 (Catapres) 0.1 mg UNSCH PRN PO 05/19/16 10:15 (Epogen Inj) 10,000 units UNSCH PRN IV 05/19/16 10:15 (Gelfoam 12 Mm/7 Mm Top) 1 foam UNSCH PRN TOP 05/19/16 10:15 (Decadron Inj) 4 mg Q6H IV PUSH 05/20/16 17:00 05/22/16 04:26 (Ecotrin Ec) 81 mg ONCE ONCE PO 05/22/16 09:30 05/22/16 09:31 UNV (Ecotrin Ec) 81 mg DAILY PO 05/23/16 09:00 UNV (Plavix) 75 mg ONCE ONCE PO 05/22/16 09:30 05/22/16 09:31 UNV (Plavix) 75 mg DAILY PO 05/23/16 09:00 UNV Urinary Catheter: No Vascular Central Line Catheter: No A/P Problem List: (1) Unstable angina ICD Code: I20.0 Status: Resolved (2) Paroxysmal atrial fibrillation ICD Code: I48.0 Status: Acute (3) Mediastinal widening ICD Code: R93.8 Status: Acute (4) COPD (chronic obstructive pulmonary disease) ICD Code: J44.9 Status: Acute (5) ESRD (end stage renal disease) ICD Code: N18.6 Status: Acute (6) Severe anemia ICD Code: D64.9 Status: Acute (7) Hypertension ICD Code: I10 Status: Acute (8) Hyponatremia ICD Code: E87.1 Status: Acute (9) Hyperkalemia ICD Code: E87.5 Status: Acute (10) Change in mental status ICD Code: R41.82 Status: Resolved (11) Hypotension ICD Code: I95.9 Status: Resolved (12) Respiratory distress ICD Code: R06.00 Status: Acute (13) Thrombocytopenia ICD Code: D69.6 Status: Acute (14) Depression (emotion) ICD Code: F32.9 Status: Acute (15) PEA (Pulseless electrical activity) ICD Code: I46.9 Status: Resolved Assessment and Plan (1) Unstable angina Plan: Cardiology following. Patient status post left heart catheterization with stent placement to the LAD as per catheterization report. Patient's cardiac catheterization was complicated by a PEA arrest and hypoxemia which required ACLS and intubation as well as mechanical ventilation. Anesthesia intubated the patient. The patient had a return of spontaneous circulation. Patient was then seen in consultation by the welder shielded metal arc who referred the patient. The patient was extubated on 05/17/16. Her stay was also complicated by thrombus cytopenia for which hematology was consulted and thought to be secondary to Aggrenox at that time. The patient now complains of chest pain described as pressure 6/10 substernal and nonradiating. She is also mildly dyspneic. The patient is a very high risk for in-stent thrombosis since her at the platelet therapy was held due to thrombocytopenia possibly caused by Aggrastat. I will order stat EKG, cardiac enzymes, and will RX 1 gm of intravenous acetaminophen (Ofirmev). As per cardiology recommendation, Dr. Valentin does not think that this is a life-threatening chest pain and this could be due to jailed 90% ostial small dx vessel and/or noncardiacThe Dr. Valentin states that the patient is at high risk for catheterization due to low platelets. Continue as needed nitroglycerin drip. The patient has been cleared from the vascular standpoint to be discharged. Hospice care recommended. 05/21 Platelets trending up and more than 50 K today. Discussed the case with Adrienne Padilla, will resume antiplatelets as per cardiology recommendations and monitor x24 hrs if platelets continue to trend up then will DC. (2) Paroxysmal atrial fibrillation Plan: .Patient previously on eliquis. Continue carvedilol for rate control. Paroxysmal A. fib is rate controlled. Cardiology is startin ASA and Plavix. (3) Mediastinal widening Plan: Negative CTA. (4) COPD (chronic obstructive pulmonary disease) Plan: Seems stable. Not on any inhalers. (5) ESRD (end stage renal disease) Plan: Nephrology following. Hemodialysis as per nephrology schedule on Mondays , Sunday and Sunday. Patient has been cleared by nephrology for DC. (6) Severe anemia Plan: Patient initially admitted with hemoglobin of 6.8. Status post transfusion of 2 units of packed blood cells. Continue to monitor hemoglobin. Ocult blood in feces checked and negative. Iron studies consistent with anemia of chronic disease with marrow of 24, TIBC 116, percent saturation 11.1 and 935. Patient is sp transfusion of several units of PRBC's to help cardiac symptoms. Hemoglobin stable at 9.1 (7) Hypertension Plan: Bp somewhat on lower side. Amlodipine dose decreased to 5 mg daily. Bp now better. (8) Hyponatremia Plan: Likely due to hypervolemic hyponatremia. Sodium now 133. Patient getting hemodialysis. (9) Hyperkalemia Plan: K 5.7. Management as per nephrology. Patient getting hemodialysis. Monitor BMP. 05/20 labs could not be drawn earlier today. This will be obtained today. Follow-up. 05/21 K 6.0. Will give D50 IV and 10 units of IV regular insulin. Will also order Kayexalate. Monitor BMP. 05/22 Hyperkalemia improving K 5.4 today. Patient has hemodialysis today. Monitor BMP. (10) Change in mental status Plan: As per RN patient having episodes of blank stare on 05/19. I will order a stat head ct and an eeg to r/o seizures. Head CT showed no acute disease. EEG with changes consistent with encephalopathy. No further of this events reported. (11) Hypotension Plan: Episodic during dialysis. Resolved. Continue to monitor vital signs. (12) Respiratory distress Plan: Ordered Dexamethasone 4 mg IV Q 6 hrs first dose STAT. Also ordered racemic epinephrine nebulizer treatment stat. The case was discussed with Dr. Mena from intensive care medicine. The patient is hemodynamically stable, satting 100% on 2 L nasal cannula and respiratory distress seemed to improve after treatment. I will keep the patient on my service. 05/21 Breathing is much improved, will Dc Dexamethasone. continue supplemental o2 as needed. 05/22 Suspect patient possibly allergic to Percocet as well since patient developed stridor after being given this medication. Will list as an allergy. GI prophylaxis: Continue PPI DVT prophylaxis: SCDs, on eliquis. Discharge Planning Transfer to the medical floor. DC in am if platelets trending up. Problem Qualifiers (1) COPD (chronic obstructive pulmonary disease): (2) Hypertension: Qualified Code: I10 - Essential hypertension David Giron MD May 22, 2016 08:08
[2016-05-22 09:48] LABS: AUTOMATED NEUTROPHIL # 9.2 TH/MM3 (1.8-7.7); BASOPHIL % 0.1 % (0.0-2.0); HEMATOCRIT 27.1 % (35.0-46.0); LYMPH % 6.6 % (9.0-44.0); LYMPHOCYTE # 0.7 TH/MM3 (1.0-4.8); MEAN CELL VOLUME 90.1 FL (80.0-100.0); MEAN CORPUSCULAR HEMOGLOBIN 30.2 PG (27.0-34.0); MEAN CORPUSCULAR HGB CONC 33.6 % (32.0-36.0); MONO % 3.2 % (0.0-8.0); NEUT % 90.1 % (16.0-70.0); PLATELET COUNT 94 TH/MM3 (150-450); WHITE BLOOD COUNT 10.2 TH/MM3 (4.0-11.0)
[2016-05-22 09:56] LABS: HEMO FLAGS AUTO DIFF
[2016-05-22] MEDS: CARVEDILOL 12.5 MG TAB PO SCH ×2 (10:22→21:15)
[2016-05-22] MEDS: DOCUSATE SODIUM 100 MG CAP PO SCH ×2 (10:22→21:15)
[2016-05-22] MEDS: SEVELAMER CARBONATE 800 MG TAB PO SCH ×3 (10:22→21:15)
[2016-05-22] MEDS: MEGESTROL ACETATE SUSP 400 MG/10 ML CUP PO SCH (10:22)
[2016-05-22] MEDS: SODIUM CHLORIDE 0.9% FLUSH 10 ML FLUSH SCH ×2 (10:23→21:00)
[2016-05-22] MEDS: amLODIPine BESYLATE 5 MG TAB PO SCH (10:23)
[2016-05-22] MEDS ORDERED: CLOPIDOGREL 75 MG TAB PO ONE (10:30)
[2016-05-22] MEDS ORDERED: ASPIRIN EC 81 MG TABEC PO ONE (10:30)
[2016-05-22 10:33] LABS: PLATELET ESTIMATE SMEAR LOW (NORMAL); PLATELET MORPHOLOGY NORMAL (NORMAL); SCAN/DIFF AUTO DIFF CONFIRMED
--- NOTE | 2016-05-22 11:59 | PD.CONS ---
Provisional Diagnosis Admission Date May 10, 2016 at 11:41 [place] I. Adjustment disorder with depressed mood, unspecified major neurocognitive disorder [place] II. Deferred [place] III. HTN, COPD, A. fib, ESRD, severe anemia, thrombocytopenia [place] IV. Multiple chronic and acute medical conditions [place] V. 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 fib, ESRD, CAD, hospitalized due to severe anemia, thrombocytopenia, hyponatremia, consulted to psychiatry due to depressive symptoms. On psychiatric hospitalizations today, patient is found in her room in the ICU, she is calm, cooperative and very pleasant. Patient reports having a very good mood today, with a very good appetite, she says that she is happily willing to take her coffee this morning. She clarifies that at some moment she has been sad remembering her . Patient denies depressive symptoms, she denies anhedonia, she denies hopelessness, she denies helplessness, she denies poor appetite, she reports fair level of energy, decreased concentration, denies suicidal and homicidal ideation, denies visual and auditory hallucinations. During the evaluation no paranoia, no delusions, no agitation, no aggressive behavior observed. Patient does report memory problems, she is completely oriented in place, but disoriented in time, with deficits in recent memory, immediate recall, abstract thinking, executive function. Patient says that she is in the hospital due to headache, she is unable to verbalize a good understanding of her medical conditions, her treatment, prognosis, appreciation of multiple diagnoses in despite of her PhD degree in nursing. Patient denies the use of alcohol and illicit drugs. Review of Systems Constitutional: DENIES: Diaphoretic episodes, Fatigue, Fever, Weight gain, Weight loss, Chills, Dizziness, Change in appetite, Night Sweats Endocrine: DENIES: Abnorml menstrual pattern, Heat/cold intolerance, Polydipsia , Polyuria, Polyphagia Eyes: DENIES: Blurred vision, Diplopia, Eye inflammation, Eye pain, Vision loss , Photosensitivity, Double Vision Ears, nose, mouth, throat: DENIES: Tinnitus, Hearing loss, Vertigo, Nasal discharge, Oral lesions, Throat pain, Hoarseness, Ear Pain, Running Nose, Epistaxis, Sinus Pain, Toothache, Odynophagia Respiratory: DENIES: Apneas, Cough, Snoring, Wheezing, Hemoptysis, Sputum production, Shortness of breath Gastrointestinal: DENIES: Abdominal pain, Black stools, Bloody stools, Constipation, Diarrhea, Nausea, Vomiting, Difficulty Swallowing, Anorexia Genitourinary: DENIES: Abnormal vaginal bleeding, Dysmenorrhea, Dyspareunia, Sexual dysfunction, Urinary frequency, Urinary incontinence, Urgency, Hematuria , Dysuria, Nocturia, Vaginal discharge Musculoskeletal: DENIES: Joint pain, Muscle aches, Stiffness, Joint Swelling, Back pain, Neck pain Integumentary: DENIES: Abnormal pigmentation, Pruritus, Rash, Nail changes, Breast masses, Breast skin changes, Nipple discharge Hematologic/lymphatic: DENIES: Bruising, Lymphadenopathy Immunologic/allergic: DENIES: Eczema, Urticaria Neurologic: DENIES: Abnormal gait, Headache, Localized weakness, Paresthesias, Seizures, Speech Problems, Tremor, Poor Balance Psychiatric: DENIES: Anxiety, Confusion, Mood changes, Depression, Hallucinations, Agitation, Suicidal Ideation, Homicidal Ideation, Delusions Past Family Social History Coded Allergies: Dilaudid (Verified Allergy, Severe, ANAPHYLACTIC, 04/03/16) Morphine (Verified Allergy, Severe, ANAPHYLACTIC, 04/03/16) *MDRO Multi-Drug Resistant Organism (Verified Adverse Reaction, Unknown, ) 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 Active Scripts Clopidogrel (Plavix)75 Mg Tab75 Mg PO DAILY #30 TAB Prov:Evens García MD 04/07/16 Furosemide 40 Mg Tab40 Mg PO BID PRN (SHORTNESS OF BREATH) #60 TAB Ref 0 Prov:Deya Grimm MD 03/28/16 Megestrol Liq 40 Mg/Ml Sltt885 Mg PO DAILY #60 CONTAINER Ref 1 Prov:Garima Neely 02/10/16 Reported Medications B-Complex W/ C & Folic Acid (Nephro-Anne)1 Tab1 Tab PO DAILY #30 TAB Ref 0 03/26/16 Cinacalcet (Sensipar)30 Mg Tab30 Mg PO DAILY #30 TAB Ref 0 03/26/16 Alprazolam (Xanax)0.25 Mg Tab0.25 Mg PO Q8H PRN (ANXIETY) Ref 0 03/26/16 Sevelamer Carbonate (Renvela)800 Mg Hyl148 Mg PO TID #90 TAB Ref 0 03/26/16 Carvedilol 12.5 Mg Tab12.5 Mg PO Q12HR #60 TAB Ref 0 03/26/16 Multiple Vitamins W/ Minerals (Thera-M)1 Tab1 Tab PO DAILY Ref 0 03/26/16 Acetaminophen (Tylenol)325 Mg Pwb542 Mg PO Q4HR PRN (PAIN) Ref 0 03/22/16 Docusate Sodium 100 Mg Xhy196 Mg PO BID #60 CAP Ref 0 03/22/16 Apixaban (Eliquis)2.5 Mg Tab2.5 Mg PO BID Ref 0 03/22/16 Aspirin 81 Mg Tabdr81 Mg PO DAILY 03/01/16 Travoprost Opth Drops (Travatan Z Opth Drops)0.004 % Soln1 Drop EACH EYE HS PRN (Glaucoma) #1 BOTTLE Ref 0 02/06/16 Vilazodone (Viibryd)40 Mg Tab40 Mg PO DAILY #30 TAB Ref 0 12/20/15 Current Medications Medications (Trade) Dose Ordered Sig/Thierry Route Start Time Stop Time Status Last Admin (Xanax) 0.25 mg Q8H PRN PO 05/09/16 17:15 Hold 05/13/16 10:28 (Coreg) 12.5 mg Q12HR PO 05/09/16 21:00 05/22/16 10:22 (Colace) 100 mg BID PO 05/09/16 21:00 05/22/16 10:22 (Renvela) 800 mg TID PO 05/09/16 18:00 05/22/16 10:22 (Xalatan 0.005% Opth Soln) 1 drop HS PRN EACH EYE 05/09/16 17:30 (Tylenol) 650 mg Q4H PRN PO 05/09/16 17:30 05/14/16 01:11 (Zofran Inj) 4 mg Q6H PRN IVP 05/09/16 17:30 (Dulcolax Supp) 10 mg DAILY PRN RECTAL 05/09/16 17:30 (Ambien) 5 mg HS PRN PO 05/09/16 17:30 05/20/16 20:37 (Narcan Inj) 0.4 mg UNSCH PRN IV 05/09/16 17:30 (Megace Liq) 800 mg DAILY PO 05/10/16 09:00 05/22/16 10:22 (Norvasc) 5 mg DAILY PO 05/14/16 09:00 05/22/16 10:23 (Ultram) 50 mg Q12H PRN PO 05/14/16 10:30 05/21/16 05:24 (NS Flush) 2 ml UNSCH PRN .XX 05/16/16 15:00 (NS Flush) 2 ml BID .XX 05/16/16 21:00 05/22/16 10:23 (Aspirin Chew) 162 mg DAILY PO 05/17/16 09:00 Hold (D50w (Vial) Inj) 25 ml UNSCH PRN IV PUSH 05/17/16 04:45 (Glucagon Inj) 1 mg UNSCH PRN OTHER 05/17/16 04:45 (NovoLOG SUPPLEMENTAL SCALE) 1 Q6H SQ 05/17/16 06:00 05/21/16 04:26 Nitroglycerin 0.4 mg 0.4 mg Q5M PRN SL 05/17/16 15:00 05/20/16 04:08 (Nitroglycerin-Dextrose Inj) 250 ml @ 0 mls/hr TITRATE IV 05/17/16 16:00 Nitroglycerin 2 inch 2 inch Q6H TOPICAL 05/17/16 16:00 05/22/16 10:24 Sodium Chloride 1,000 ml @ 0 mls/hr Q0M PRN IV 05/19/16 10:08 Sodium Chloride 1,000 ml @ 200 mls/hr Q5H PRN IV 05/19/16 10:08 (NS 1000 ml Inj) 1,000 ml @ 0 mls/hr Q0M PRN IV 05/19/16 10:08 (Mannitol Inj) 12.5 gm UNSCH PRN IV 05/19/16 10:15 (Albumin 25% Inj) 25 gm UNSCH PRN IV 05/19/16 10:15 (NS Flush) 5 ml UNSCH PRN IV FLUSH 05/19/16 10:15 (Gentamicin (Dialysis) Inj) 20 mg UNSCH PRN IV 05/19/16 10:15 (Zofran Inj) 4 mg UNSCH PRN IV 05/19/16 10:15 (Tylenol) 650 mg UNSCH PRN PO 05/19/16 10:15 (Benadryl) 25 mg UNSCH PRN PO 05/19/16 10:15 (Nitrostat Sl) 0.4 mg UNSCH PRN SL 05/19/16 10:15 (Catapres) 0.1 mg UNSCH PRN PO 05/19/16 10:15 (Epogen Inj) 10,000 units UNSCH PRN IV 05/19/16 10:15 (Gelfoam 12 Mm/7 Mm Top) 1 foam UNSCH PRN TOP 05/19/16 10:15 (Decadron Inj) 4 mg Q6H IV PUSH 05/20/16 17:00 05/22/16 04:26 (Ecotrin Ec) 81 mg DAILY PO 05/23/16 09:00 (Plavix) 75 mg DAILY PO 05/23/16 09:00 Family History Patient denies Social History Patient was born and raised in [place], she lives alone in [place], she has a daughter who visits her about 2 times per week, she is , supported by [place] [facility] benefits, 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 Physical Exam No EPS, no tremors, Vital Signs Vital Signs Date Time Temp Pulse Resp B/P Pulse Ox O2 Delivery O2 Flow Rate FiO2 05/22/16 10:07 95 Nasal Cannula 5.00 05/22/16 06:00 76 05/22/16 04:00 98.4 14 150/69 05/18/16 08:17 21 I/O 05/21/16 05/21/16 05/22/16 08:00 16:00 00:00 Intake Total 240 ml 280 ml 240 ml Output Total 0 ml 0 ml Balance 240 ml 280 ml 240 ml Lab Results WBC 10.2, Hgb 9.1, HCT 27.1, platelets 94, BUN 16, creatinine 5.9, NA 139, K5.4 Mental Status Examination Appearance -Americans elderly lady, appears younger than his stated age, good hygiene, hospital pajamas, calm, cooperative and pleasant Speech: Unremarkable Orientation: Person, Place, Time (disoriented in time), Situation (partially oriented in situation) Memory: Impaired (describe) Thought Process: Logical Thought Content: Unremarkable Hallucination Type: None Attention and Concentration: Abnormal Suicidal Ideation: No Previous Suicide Attempts: No Homicidal Ideation: No Previous Homicide Attempts: No Judgment: Poor Affect: Good Mood: Appropriate Motor Activity: Normal gait Assessment & Plan Problem List: (1) Major neurocognitive disorder ICD Code: F03.90 (2) Adjustment disorder with depressed mood Assessment & Plan: On psychiatric evaluation today patient presents with bright affect, smiling often, she reports good mood, he denies depressive symptoms, denies anhedonia, denies hopelessness, denies helplessness, denies worthlessness. She reports good appetite, fair level of energy, she denies suicidal and homicidal ideation, she denies visual and auditory hallucinations. No paranoia, no delusions, no agitation, no aggressive behavior, no acute delirium are observed. Recent described sadness and tearful moments seems to be more related with adjustment disorder secondary to current underlying acute medical condition than secondary to a primary major psychiatric condition decompensation, such as depression, bipolar disorder, schizophrenia, PTSD. However, on conduction of a brief cognitive testing impairment in in memories evident which could be either secondary to underlying medical conditions or part of ongoing, maybe the onset, of a major neurocognitive disorder. She does not meet criteria for psychiatric hospitalization. Extensive support, motivation and psychoeducation provided. Patient would benefit of further outpatient neurocognitive testing typification of potential Dementia. She may benefit of starting low doses of Namenda and Aricept will slow her depression of dementia. Usually 5 mg daily of each one can be effective. Consul appreciated. ICD Code: F43.21 Assessment & Plan Estimated LOS: Goldy José MD May 22, 2016 11:58
--- NOTE | 2016-05-22 12:28 | PD.CARD.PN ---
Subjective Subjective Remarks denies chest pain, alert in nad Objective Vital Signs / I&O Vital Signs Date Time Temp Pulse Resp B/P Pulse Ox O2 Delivery O2 Flow Rate FiO2 05/22/16 10:07 95 Nasal Cannula 5.00 05/22/16 06:00 76 05/22/16 04:00 69 05/22/16 04:00 98.4 69 14 150/69 100 05/22/16 04:00 97 Nasal Cannula 3.00 05/22/16 02:00 72 05/22/16 00:00 70 05/22/16 00:00 100 Nasal Cannula 5.00 05/22/16 00:00 98.6 70 14 137/66 100 05/21/16 22:00 73 05/21/16 20:00 76 05/21/16 20:00 100 Nasal Cannula 5.00 05/21/16 20:00 98.5 76 18 116/56 100 05/21/16 19:23 94 Nasal Cannula 5.00 05/21/16 18:00 74 05/21/16 16:00 98.4 71 18 135/67 99 05/21/16 16:00 Nasal Cannula 2.00 05/21/16 16:00 68 05/21/16 16:00 71 05/21/16 14:00 68 I/O 05/21/16 05/21/16 05/21/16 05/22/16 05/22/16 05/22/16 07:00 15:00 23:00 07:00 15:00 23:00 Intake Total 240 ml 280 ml 240 ml 240 ml Output Total 0 ml 0 ml 0 ml Balance 240 ml 280 ml 240 ml 240 ml Intake Oral 240 ml 280 ml 240 ml 240 ml Output Urine Total 0 ml 0 ml Stool Total 0 ml 0 ml Physical Exam GENERAL: SKIN: Warm and dry. HEAD: Normocephalic. EYES: No scleral icterus. No injection or drainage. NECK: Supple, trachea midline. No JVD or lymphadenopathy. CARDIOVASCULAR: Regular rate and rhythm without murmurs, gallops, or rubs. RESPIRATORY: Breath sounds equal bilaterally. No accessory muscle use. GASTROINTESTINAL: Abdomen soft, non-tender, nondistended. MUSCULOSKELETAL: No cyanosis, or edema. BACK: Nontender without obvious deformity. No CVA tenderness. Laboratory Laboratory Tests Test 05/22/16 05/22/16 05:11 09:35 White Blood Count 9.6 TH/MM3 10.2 TH/MM3 Red Blood Count 2.75 MIL/MM3 3.00 MIL/MM3 Hemoglobin 8.6 GM/DL 9.1 GM/DL Hematocrit 25.1 % 27.1 % Mean Corpuscular Volume 91.1 FL 90.1 FL Mean Corpuscular Hemoglobin 31.1 PG 30.2 PG Mean Corpuscular Hemoglobin 34.1 % 33.6 % Concent Red Cell Distribution Width 18.5 % 18.0 % Platelet Count 79 TH/MM3 94 TH/MM3 Mean Platelet Volume 9.4 FL 8.9 FL Sodium Level 131 MEQ/L Potassium Level 5.4 MEQ/L Chloride Level 93 MEQ/L Carbon Dioxide Level 28.9 MEQ/L Anion Gap 9 MEQ/L Blood Urea Nitrogen 60 MG/DL Creatinine 5.92 MG/DL Estimat Glomerular Filtration 8 ML/MIN Rate Random Glucose 110 MG/DL Calcium Level 8.8 MG/DL Neutrophils (%) (Auto) 90.1 % Lymphocytes (%) (Auto) 6.6 % Monocytes (%) (Auto) 3.2 % Eosinophils (%) (Auto) 0.0 % Basophils (%) (Auto) 0.1 % Neutrophils # (Auto) 9.2 TH/MM3 Lymphocytes # (Auto) 0.7 TH/MM3 Monocytes # (Auto) 0.3 TH/MM3 Eosinophils # (Auto) 0.0 TH/MM3 Basophils # (Auto) 0.0 TH/MM3 CBC Comment AUTO DIFF Differential Comment AUTO DIFF CONFIRMED Platelet Estimate LOW Platelet Morphology Comment NORMAL Assessment and Plan Problem List: (1) Atrial fibrillation, new onset (2) Aortic stenosis (3) Hypertension (4) Hyperlipidemia (5) Depression (6) CAD (coronary artery disease) (7) Chest pain (8) Cardiomyopathy Assessment and Plan 1.) CAD - s/p pci bms mid lad, small diagonal vessel jailed but patent, restart dapt as plt>50; chest pain resolved, elevated troponin due to jailed 90% ostial small dx vessel and esrd, do not think this is a life threatening stenosis or that requires admission, o/w patient is completely revascularized 2.) PAF - in nsr, assymptomatic, eliquis held d/t thrombocytopenia 3.) PEA - suspect d/t apnea from fentanyl and/or versed, trop elevated due to pea and esrd, trending down pci; patient is hospice, do not rec recurrent cath due to high risk d/t thrombocytopenia, pea from conscience sedation from fentanyl/versed and inability to access diagonal vessel d/t vessel tortuosity and 90 degreee angle off lad; rec palliative care consult, prn ntg 4.) Ok to dc from cv standpoint, f/u with me hellen; rec hospice, patient undecided 6.) thrombocytopenia - improved, = 76k today 6.) Stridor - possibly related to narcotics, known allergy to dilaudid, mso4, pea/apnea with fentanyl, had stridor with percocet, rec dc percocet Problem Qualifiers (1) Hypertension: Qualified Code: I10 - Essential hypertension (2) CAD (coronary artery disease): Qualified Code: I25.10 - Coronary artery disease due to calcified coronary lesion (3) Chest pain: Qualified Code: R07.2 - Precordial pain Zohaib Valentin MD May 22, 2016 12:28
--- NOTE | 2016-05-22 12:32 | HHI.NPPN ---
Subjective General Problems: Anemia Renal Failure: Chronic, End Stage Renal Disease Interval History Vital signs are stable. She does not report chest pain during exam. Due for dialysis today. (Lelo Chong) Review of Systems General Constitutional: Fatigue (Lelo Chong) Cardiovascular Cardiac: Chest Pain (Lelo Chong) Objective Data Data 05/21/16 05/22/16 19:00 07:00 Intake Total 280 ml 480 ml Output Total 0 ml 0 ml Balance 280 ml 480 ml Intake Oral 280 ml 480 ml Output Urine Total 0 ml Stool Total 0 ml 0 ml Vital Signs Date Time Temp Pulse Resp B/P Pulse Ox O2 Delivery O2 Flow Rate FiO2 05/22/16 10:07 95 Nasal Cannula 5.00 05/22/16 06:00 76 05/22/16 04:00 69 05/22/16 04:00 98.4 69 14 150/69 100 05/22/16 04:00 97 Nasal Cannula 3.00 05/22/16 02:00 72 05/22/16 00:00 70 05/22/16 00:00 100 Nasal Cannula 5.00 05/22/16 00:00 98.6 70 14 137/66 100 05/21/16 22:00 73 05/21/16 20:00 76 05/21/16 20:00 100 Nasal Cannula 5.00 05/21/16 20:00 98.5 76 18 116/56 100 05/21/16 19:23 94 Nasal Cannula 5.00 05/21/16 18:00 74 05/21/16 16:00 98.4 71 18 135/67 99 05/21/16 16:00 Nasal Cannula 2.00 05/21/16 16:00 68 05/21/16 16:00 71 05/21/16 14:00 68 (Lelo Chong) -: 05/22/16 0935 05/22/16 0511 Physical Exam General Appearance: Well Developed, Well Nourished, No Acute Distress, Comfortable, Malnourished (Lelo Chong) Eyes Eye Exam: Pupils Equal (Lelo Chong) Throat Throat Exam: Oral Mucosa [place] & Moist (Lelo Chong) Neck Neck Exam: Neck Supple (Lelo Chong) Pulmonary Resp Exam: Clear Bilaterally, Breath Sounds Equal, No Distress (Lelo Chong) Cardiology CV Exam: Regular, Normal Sinus Rhythm, Good Perfusion, Dyspnea on Exertion ( Lelo Chong) Gastrointestinal/Abdomen GI Exam: Soft, Non-Tender, Bowel Sounds Present (Lelo Chong) Musculoskeletal MS Exam: Joints Intact, Normal Tone (Lelo Chong) Integumentary Skin Exam: Clear, Warm, Dry, Intact (Lelo Chong) Extremeties Extremities Exam: No Edema, Pedal Pulses Palpable Extremeties Remarks right AVF, accessed during HD (Lelo Chong) Neurologic Neuro Exam: Alert, Awake, Oriented, Speech Clear, Moving All Extremities ( Lelo Chong) Assessment/Plan Discussed Condition With: Patient Assessment Summary: Anemia of CKD, CHF, Hypertension, End Stage Renal Disease Electrolyte Assessment: Hyperkalemia Problem List: (1) ESRD (end stage renal disease) Plan: HD MWF, she is due for treatment today Volume status stable K 5.4, should correct with dialysis Hyperkalemic yesterday, given Kayexalate avoid IVF, gadolinium functioning AVF for dialysis she has existing outpatient HD arrangements, can be discharged when cleared by all consulting physicians (2) CAD (coronary artery disease) Plan: adjust UF with dialysis as tolerated/required cardiology following sp cath with stent to LAD, EF 45% no further PCI per Dr. Valentin she was evaluated by palliative , declined hospice (3) Anemia Plan: on Epogen with HD Hb stable goal Hb >10 transfuse PRN, she has received 5 units PRBC since admission (4) Atrial fibrillation Plan: Rate controlled follow with cardiology (5) Thrombocytopenia Plan: acute, improving antiplatelets have been hold no heparin with HD goal 50K, can resume antiplatelets then hematology has evaluated monitor for bleeding (Lelo Chong) Plan patient was seen examined. Agree with above assessment and plan. (Roland Miramontes MD) Problem Qualifiers (1) CAD (coronary artery disease): Qualified Code: I25.10 - Coronary artery disease due to calcified coronary lesion (2) Anemia: Lelo Chong May 22, 2016 12:32 Roland Miramontes MD May 23, 2016 11:25
--- NOTE | 2016-05-22 13:37 | PD.ONC.PN ---
Subjective Subjective Remarks Afebrile overnight. patient sad that she has not had more visitors. She is tired of being in the hospital. She is tired of the food here. She is tearful during the interview. No bleeding. Objective Data Date Time Temp Pulse Resp B/P Pulse Ox O2 Delivery O2 Flow Rate FiO2 05/22/16 10:07 95 Nasal Cannula 5.00 05/22/16 06:00 76 05/22/16 04:00 69 05/22/16 04:00 98.4 69 14 150/69 100 05/22/16 04:00 97 Nasal Cannula 3.00 05/22/16 02:00 72 05/22/16 00:00 70 05/22/16 00:00 100 Nasal Cannula 5.00 05/22/16 00:00 98.6 70 14 137/66 100 05/21/16 22:00 73 05/21/16 20:00 76 05/21/16 20:00 100 Nasal Cannula 5.00 05/21/16 20:00 98.5 76 18 116/56 100 05/21/16 19:23 94 Nasal Cannula 5.00 05/21/16 18:00 74 05/21/16 16:00 98.4 71 18 135/67 99 05/21/16 16:00 Nasal Cannula 2.00 05/21/16 16:00 68 05/21/16 16:00 71 05/21/16 14:00 68 05/22/16 05/22/16 05/22/16 07:00 15:00 23:00 Intake Total 240 ml Output Total 0 ml Balance 240 ml Result Diagram: 05/22/16 0935 05/22/16 0511 Laboratory Results Laboratory Tests Test 05/22/16 05/22/16 05:11 09:35 White Blood Count 9.6 TH/MM3 10.2 TH/MM3 Red Blood Count 2.75 MIL/MM3 3.00 MIL/MM3 Hemoglobin 8.6 GM/DL 9.1 GM/DL Hematocrit 25.1 % 27.1 % Mean Corpuscular Volume 91.1 FL 90.1 FL Mean Corpuscular Hemoglobin 31.1 PG 30.2 PG Mean Corpuscular Hemoglobin 34.1 % 33.6 % Concent Red Cell Distribution Width 18.5 % 18.0 % Platelet Count 79 TH/MM3 94 TH/MM3 Mean Platelet Volume 9.4 FL 8.9 FL Sodium Level 131 MEQ/L Potassium Level 5.4 MEQ/L Chloride Level 93 MEQ/L Carbon Dioxide Level 28.9 MEQ/L Anion Gap 9 MEQ/L Blood Urea Nitrogen 60 MG/DL Creatinine 5.92 MG/DL Estimat Glomerular Filtration 8 ML/MIN Rate Random Glucose 110 MG/DL Calcium Level 8.8 MG/DL Neutrophils (%) (Auto) 90.1 % Lymphocytes (%) (Auto) 6.6 % Monocytes (%) (Auto) 3.2 % Eosinophils (%) (Auto) 0.0 % Basophils (%) (Auto) 0.1 % Neutrophils # (Auto) 9.2 TH/MM3 Lymphocytes # (Auto) 0.7 TH/MM3 Monocytes # (Auto) 0.3 TH/MM3 Eosinophils # (Auto) 0.0 TH/MM3 Basophils # (Auto) 0.0 TH/MM3 CBC Comment AUTO DIFF Differential Comment AUTO DIFF CONFIRMED Platelet Estimate LOW Platelet Morphology Comment NORMAL Administered Medications Medications (Trade) Dose Ordered Sig/Thierry Route PRN Reason Start Time Stop Time Status Last Admin Dose Admin Alprazolam (Xanax) 0.25 mg Q8H PRN PO ANXIETY 05/09/16 17:15 Hold 05/13/16 10:28 Carvedilol (Coreg) 12.5 mg Q12HR PO 05/09/16 21:00 05/22/16 10:22 Docusate Sodium (Colace) 100 mg BID PO 05/09/16 21:00 05/22/16 10:22 Sevelamer Carbonate (Renvela) 800 mg TID PO 05/09/16 18:00 05/22/16 10:22 Acetaminophen (Tylenol) 650 mg Q4H PRN PO TEMP > 100.4 05/09/16 17:30 05/14/16 01:11 Zolpidem Tartrate (Ambien) 5 mg HS PRN PO INSOMNIA 05/09/16 17:30 05/20/16 20:37 Megestrol Acetate (Megace Liq) 800 mg DAILY PO 05/10/16 09:00 05/22/16 10:22 Amlodipine Besylate (Norvasc) 5 mg DAILY PO 05/14/16 09:00 05/22/16 10:23 Tramadol HCl (Ultram) 50 mg Q12H PRN PO CHEST PAIN 05/14/16 10:30 05/21/16 05:24 Sodium Chloride (NS Flush) 2 ml BID .XX 05/16/16 21:00 05/22/16 10:23 Insulin Aspart (NovoLOG SUPPLEMENTAL SCALE) 1 Q6H SQ 05/17/16 06:00 05/21/16 04:26 Nitroglycerin (Nitrostat Sl) 0.4 mg Q5M PRN SL CHEST PAIN 05/17/16 15:00 05/20/16 04:08 Nitroglycerin (Nitroglycerin 2% Oint) 2 inch Q6H TOPICAL 05/17/16 16:00 05/22/16 10:24 Dexamethasone Sodium Phosphate (Decadron Inj) 4 mg Q6H IV PUSH 05/20/16 17:00 05/22/16 04:26 Objective Remarks GENERAL: Elderly female, lying in bed, tearful. SKIN: Warm and dry. HEAD: Normocephalic. EYES: No injection or drainage. NECK: Supple, trachea midline. CARDIOVASCULAR: +S1/S2 RESPIRATORY: diminished at bases, anterior tran clear. on supplemental O2 via NC GASTROINTESTINAL: Abdomen soft, non-tender, nondistended. EXTREMITIES: No cyanosis NEUROLOGICAL: awake and alert, normal speech. Assessment/Plan Problem List: (1) Thrombocytopenia Status: Acute Plan: --Severe thrombocytopenia due to the Aggrastat. --Will transfuse if any evidence of bleeding or platelet <10K. --platelet count was 276,000 05/16 and dropped to 5000 after receiving Aggrastat. --Peripheral smear did not show any platelet clumping. The platelet morphology appeared normal and there was significantly decreased platelet count. No significant schistocytes noted. --HIT ab neg. 05/17--Received 1U platelet 05/18 platelet trended up to 30K, no bleeding noted. Will monitor her platelet count closely. She can restart antiplatelet agents after her platelet count starts trending up. 05/19 Platelet trended down to 20K. No bleeding noted. Continue to monitor. 05/22: platelets improved. ok to resume antiplatelet therapy (2) CAD (coronary artery disease) Status: Acute Plan: --presented to the hospital with a non-ST elevation myocardial infarction. --was taken to the label machine operator yesterday and a metal stent was placed in the LAD. coded on the table and had a PEA arrest. She was resuscitated. --During the procedure she was given Aggrastat and heparin. --Without the antiplatelet agents she has an increased risk of clotting the stent, but at this point she is not able to receive any antiplatelet agents due to severe thrombocytopenia. (3) ESRD (end stage renal disease) Status: Acute Plan: --on hemodialysis. --Recommend not to use heparin for dialysis. (4) Anemia Status: Acute Assessment 85y/o admitted with NSTEMI, Hematology consulted for thrombocytopenia history of end-stage renal disease, coronary artery disease, COPD, congestive heart failure, Plan 1. ok to resume antiplatelet agents 2. monitor CBC Attending Statement The exam, history, and the medical decision-making described in the above note were completed with the assistance of the mid-level provider. I reviewed and agree with the findings presented. I attest that I had a [id number] encounter with the patient on the same day, and personally performed and documented my assessment and findings in the medical record. No bleeding noted. Platelet has trended up. Can restart antiplatelet agents. Continue to monitor CBC. Problem Qualifiers (1) CAD (coronary artery disease): Qualified Code: I25.10 - Coronary artery disease due to calcified coronary lesion (2) Anemia: Adrienne Padilla May 22, 2016 13:37 Xavi Gant MD May 22, 2016 17:22
[2016-05-22] MEDS ORDERED: MISC INFORMATION XX ONE (14:00)
[2016-05-22] MEDS ORDERED: SODIUM CHLORIDE 0.9% FLUSH 10 ML FLUSH PRN (14:00)
[2016-05-22] MEDS ORDERED: BACITRACIN OINT 0.9 GM PKT TOP ONE (14:00)
[2016-05-22] MEDS: ALBUMIN HUMAN 25% 25 GM/100 ML BAGP IV PRN (15:00)
[2016-05-22] MEDS: EPOETIN ALFA 10,000 UNITS/ML VIAL IV PRN (15:01)
--- NOTE | 2016-05-22 17:07 | HHI.HCPN ---
Patient off the floor receiving hemodialysis, unable to evaluate. Discussed with patient's nurse, Cindy. Dr. Carr placed orders for patient transfer to floor. Palliative care will follow up with patient tomorrow. Paradise Franco May 22, 2016 17:07
[2016-05-23] VITALS (11 sets, daily range): BP systolic 99–140; BP diastolic 54–65; PULSE 77–90; RESP 17–18; TEMP 97–99.4; O2SAT 93–100
[2016-05-23] MEDS: NITROGLYCERIN 2% OINT 1 GM PACKET TOPICAL SCH ×4 (05:30→22:12)
[2016-05-23] MEDS: DEXAMETHASONE SOD PHOS 4 MG/ML VIAL IV PUSH SCH ×4 (05:30→22:11)
[2016-05-23] MEDS: INSULIN ASPART SUPPLEMENTAL SCALE SQ SCH ×4 (05:32→22:11)
[2016-05-23 05:37] LABS: MEAN CELL VOLUME 90.5 FL (80.0-100.0); MEAN CORPUSCULAR HEMOGLOBIN 30.6 PG (27.0-34.0); MEAN CORPUSCULAR HGB CONC 33.8 % (32.0-36.0); PLATELET COUNT 123 TH/MM3 (150-450); RED BLOOD COUNT 2.76 MIL/MM3 (4.00-5.30); WHITE BLOOD COUNT 10.2 TH/MM3 (4.0-11.0)
[2016-05-23 05:41] LABS: REVIEW FLAG FINAL
[2016-05-23 05:59] LABS: BICARBONATE 30.6 MEQ/L (21.0-32.0)
[2016-05-23] MEDS: SODIUM CHLORIDE 0.9% FLUSH 10 ML FLUSH SCH ×2 (09:00→22:13)
[2016-05-23] MEDS: CARVEDILOL 12.5 MG TAB PO SCH ×2 (09:08→22:12)
[2016-05-23] MEDS: SEVELAMER CARBONATE 800 MG TAB PO SCH ×3 (09:08→17:50)
[2016-05-23] MEDS: MEGESTROL ACETATE SUSP 400 MG/10 ML CUP PO SCH (09:08)
[2016-05-23] MEDS: ASPIRIN EC 81 MG TABEC PO SCH (09:08)
[2016-05-23] MEDS: amLODIPine BESYLATE 5 MG TAB PO SCH (09:09)
[2016-05-23] MEDS: CLOPIDOGREL 75 MG TAB PO SCH (09:09)
[2016-05-23] MEDS: traMADol HCL 50 MG TAB PO PRN (09:09)
[2016-05-23] MEDS: DOCUSATE SODIUM 100 MG CAP PO SCH ×2 (09:09→21:00)
[2016-05-23 09:56] LABS: BICARBONATE 31.5 MEQ/L (21.0-32.0); POTASSIUM 3.9 MEQ/L (3.5-5.1)
--- NOTE | 2016-05-23 10:16 | HHI.NPPN ---
Subjective General Problems: Anemia Renal Failure: Chronic, End Stage Renal Disease Interval History Dialyzed yesterday. Platelets are much better. (Lelo Chong) Review of Systems General Constitutional: Fatigue (Lelo Chong) Cardiovascular Cardiac: Chest Pain (Lelo Chong) Objective Data Data 05/22/16 05/23/16 19:00 07:00 Intake Total 240 ml Output Total 3000 ml Balance -3000 ml 240 ml Intake Oral 240 ml Hemodialysis 3000 ml # Voids 1 # Bowel Movements 1 Vital Signs Date Time Temp Pulse Resp B/P Pulse Ox O2 Delivery O2 Flow Rate FiO2 05/23/16 08:00 98.1 82 18 140/62 99 05/23/16 05:02 94 21 05/23/16 04:00 97.0 80 17 131/60 95 05/23/16 00:00 99.4 84 18 132/64 100 05/22/16 20:00 Nasal Cannula 3.00 05/22/16 20:00 98.3 84 17 142/62 97 05/22/16 20:00 75 05/22/16 18:26 98.8 101 16 127/68 100 05/22/16 12:00 98.3 83 18 109/59 100 05/22/16 12:00 Nasal Cannula 3.00 (Lelo Chong) -: 05/23/16 0433 05/23/16 0823 Physical Exam General Appearance: Well Developed, Well Nourished, No Acute Distress, Comfortable, Malnourished (Lelo Chong) Eyes Eye Exam: Pupils Equal (Lelo Chong) Throat Throat Exam: Oral Mucosa [place] & Moist (Lelo Chong) Neck Neck Exam: Neck Supple (Lelo Chong) Pulmonary Resp Exam: Clear Bilaterally, Breath Sounds Equal, No Distress (Lelo Chong) Cardiology CV Exam: Regular, Normal Sinus Rhythm, Good Perfusion, Dyspnea on Exertion ( Lelo Chong) Gastrointestinal/Abdomen GI Exam: Soft, Non-Tender, Bowel Sounds Present (Lelo Chong) Musculoskeletal MS Exam: Joints Intact, Normal Tone (Lelo Chong) Integumentary Skin Exam: Clear, Warm, Dry, Intact (Lelo Chong) Extremeties Extremities Exam: No Edema, Pedal Pulses Palpable Extremeties Remarks right AVF, accessed during HD (Lelo Chong) Neurologic Neuro Exam: Alert, Awake, Oriented, Speech Clear, Moving All Extremities ( Lelo Chong) Assessment/Plan Discussed Condition With: Patient Assessment Summary: Anemia of CKD, CHF, Hypertension, End Stage Renal Disease Electrolyte Assessment: Hyperkalemia Problem List: (1) ESRD (end stage renal disease) Plan: HD MWF, she had 3L UF yesterday Volume status stable K corrected avoid IVF, gadolinium functioning AVF for dialysis she has existing outpatient HD arrangements, cleared for discharge by nephrology (2) CAD (coronary artery disease) Plan: adjust UF with dialysis as tolerated/required cardiology following sp cath with stent to LAD, EF 45% no further PCI per Dr. Valentin she was evaluated by palliative , declined hospice (3) Anemia Plan: on Epogen with HD Hb stable goal Hb >10 transfuse PRN, she has received 5 units PRBC since admission (4) Atrial fibrillation Plan: Rate controlled follow with cardiology (5) Thrombocytopenia Plan: acute, improving, due to Aggrastat antiplatelets can be resumed no heparin with HD goal 50K hematology has evaluated (Lelo Chong) Plan patient was seen and examined. Continue dialysis MWF. She can be discharged from renal standpoint. (Roland Miramontes MD) Problem Qualifiers (1) CAD (coronary artery disease): Qualified Code: I25.10 - Coronary artery disease due to calcified coronary lesion (2) Anemia: Lelo Chong May 23, 2016 10:16 Roland Miramontes MD May 24, 2016 09:31
[2016-05-23 11:34] LABS: HEMATOCRIT 25.1 % (35.0-46.0)
--- NOTE | 2016-05-23 12:28 | PD.CARD.PN ---
Subjective Subjective Remarks alert in nad, denies chest pain Objective Vital Signs / I&O Vital Signs Date Time Temp Pulse Resp B/P Pulse Ox O2 Delivery O2 Flow Rate FiO2 05/23/16 11:02 93 Nasal Cannula 2.00 05/23/16 08:00 98.1 82 18 140/62 99 05/23/16 05:02 94 21 05/23/16 04:00 97.0 80 17 131/60 95 05/23/16 00:00 99.4 84 18 132/64 100 05/22/16 20:00 Nasal Cannula 3.00 05/22/16 20:00 98.3 84 17 142/62 97 05/22/16 20:00 75 05/22/16 18:26 98.8 101 16 127/68 100 I/O 05/22/16 05/22/16 05/22/16 05/23/16 05/23/16 05/23/16 07:00 15:00 23:00 07:00 15:00 23:00 Intake Total 240 ml 240 ml Output Total 0 ml 3000 ml Balance 240 ml -3000 ml 240 ml Intake Oral 240 ml 240 ml Output Urine Total 0 ml Stool Total 0 ml Hemodialysis 3000 ml # Voids 1 # Bowel Movements 1 Physical Exam GENERAL: SKIN: Warm and dry. HEAD: Normocephalic. EYES: No scleral icterus. No injection or drainage. NECK: Supple, trachea midline. No JVD or lymphadenopathy. CARDIOVASCULAR: Regular rate and rhythm without murmurs, gallops, or rubs. RESPIRATORY: Breath sounds equal bilaterally. No accessory muscle use. GASTROINTESTINAL: Abdomen soft, non-tender, nondistended. MUSCULOSKELETAL: No cyanosis, or edema. BACK: Nontender without obvious deformity. No CVA tenderness. Laboratory Laboratory Tests Test 05/23/16 05/23/16 05/23/16 04:33 08:23 11:03 White Blood Count 10.2 TH/MM3 Red Blood Count 2.76 MIL/MM3 Hemoglobin 8.4 GM/DL 8.7 GM/DL Hematocrit 25.0 % 25.1 % Mean Corpuscular Volume 90.5 FL Mean Corpuscular Hemoglobin 30.6 PG Mean Corpuscular Hemoglobin 33.8 % Concent Red Cell Distribution Width 18.0 % Platelet Count 123 TH/MM3 Mean Platelet Volume 8.4 FL Sodium Level 137 MEQ/L 136 MEQ/L Potassium Level 4.0 MEQ/L 3.9 MEQ/L Chloride Level 97 MEQ/L 95 MEQ/L Carbon Dioxide Level 30.6 MEQ/L 31.5 MEQ/L Anion Gap 9 MEQ/L 10 MEQ/L Blood Urea Nitrogen 38 MG/DL 42 MG/DL Creatinine 4.11 MG/DL 4.54 MG/DL Estimat Glomerular Filtration 12 ML/MIN 11 ML/MIN Rate Random Glucose 111 MG/DL 127 MG/DL Calcium Level 8.5 MG/DL 8.7 MG/DL Phosphorus Level 3.3 MG/DL Assessment and Plan Problem List: (1) Atrial fibrillation, new onset (2) Aortic stenosis (3) Hypertension (4) Hyperlipidemia (5) Depression (6) CAD (coronary artery disease) (7) Chest pain (8) Cardiomyopathy Assessment and Plan 1.) CAD - no chest pain x 48 hrs, s/p pci bms mid lad, small diagonal vessel jailed but patent, continue dapt as plt>50; chest pain resolved, elevated troponin due to jailed 90% ostial small dx vessel and esrd, do not think this is a life threatening stenosis or that requires admission, o/w patient is completely revascularized 2.) PAF - in nsr, assymptomatic, eliquis held d/t thrombocytopenia 3.) PEA - suspect d/t apnea from fentanyl and/or versed, trop elevated due to pea and esrd, trending down pci; patient is hospice, do not rec recurrent cath due to high risk d/t thrombocytopenia, pea from conscience sedation from fentanyl/versed and inability to access diagonal vessel d/t vessel tortuosity and 90 degreee angle off lad; rec palliative care consult, prn ntg 4.) Ok to dc from cv standpoint, f/u with me hellen; rec hospice, patient undecided 6.) thrombocytopenia - improved, = 129k today 6.) Stridor - possibly related to narcotics, known allergy to dilaudid, mso4, pea/apnea with fentanyl, had stridor with percocet, rec dc percocet Problem Qualifiers (1) Hypertension: Qualified Code: I10 - Essential hypertension (2) CAD (coronary artery disease): Qualified Code: I25.10 - Coronary artery disease due to calcified coronary lesion (3) Chest pain: Qualified Code: R07.2 - Precordial pain Zohaib Valentin MD May 23, 2016 12:28
--- NOTE | 2016-05-23 13:49 | PD.ONC.PN ---
Subjective Subjective Remarks Afebrile overnight. Patient resting comfortably without complaint. No bleeding. Objective Data Date Time Temp Pulse Resp B/P Pulse Ox O2 Delivery O2 Flow Rate FiO2 05/23/16 12:30 97.7 77 18 103/62 100 05/23/16 11:02 93 Nasal Cannula 2.00 05/23/16 08:00 98.1 82 18 140/62 99 05/23/16 05:02 94 21 05/23/16 04:00 97.0 80 17 131/60 95 05/23/16 00:00 99.4 84 18 132/64 100 05/22/16 20:00 Nasal Cannula 3.00 05/22/16 20:00 98.3 84 17 142/62 97 05/22/16 20:00 75 05/22/16 18:26 98.8 101 16 127/68 100 05/23/16 05/23/16 05/23/16 07:00 15:00 23:00 Intake Total 240 ml Balance 240 ml Result Diagram: 05/23/16 1103 05/23/16 0823 Laboratory Results Laboratory Tests Test 05/23/16 05/23/16 05/23/16 04:33 08:23 11:03 White Blood Count 10.2 TH/MM3 Red Blood Count 2.76 MIL/MM3 Hemoglobin 8.4 GM/DL 8.7 GM/DL Hematocrit 25.0 % 25.1 % Mean Corpuscular Volume 90.5 FL Mean Corpuscular Hemoglobin 30.6 PG Mean Corpuscular Hemoglobin 33.8 % Concent Red Cell Distribution Width 18.0 % Platelet Count 123 TH/MM3 Mean Platelet Volume 8.4 FL Sodium Level 137 MEQ/L 136 MEQ/L Potassium Level 4.0 MEQ/L 3.9 MEQ/L Chloride Level 97 MEQ/L 95 MEQ/L Carbon Dioxide Level 30.6 MEQ/L 31.5 MEQ/L Anion Gap 9 MEQ/L 10 MEQ/L Blood Urea Nitrogen 38 MG/DL 42 MG/DL Creatinine 4.11 MG/DL 4.54 MG/DL Estimat Glomerular Filtration 12 ML/MIN 11 ML/MIN Rate Random Glucose 111 MG/DL 127 MG/DL Calcium Level 8.5 MG/DL 8.7 MG/DL Phosphorus Level 3.3 MG/DL Administered Medications Medications (Trade) Dose Ordered Sig/Thierry Route PRN Reason Start Time Stop Time Status Last Admin Dose Admin Alprazolam (Xanax) 0.25 mg Q8H PRN PO ANXIETY 05/09/16 17:15 Hold 05/13/16 10:28 Carvedilol (Coreg) 12.5 mg Q12HR PO 05/09/16 21:00 05/23/16 09:08 Docusate Sodium (Colace) 100 mg BID PO 05/09/16 21:00 05/23/16 09:09 Sevelamer Carbonate (Renvela) 800 mg TID PO 05/09/16 18:00 05/23/16 11:37 Acetaminophen (Tylenol) 650 mg Q4H PRN PO TEMP > 100.4 05/09/16 17:30 05/14/16 01:11 Zolpidem Tartrate (Ambien) 5 mg HS PRN PO INSOMNIA 05/09/16 17:30 05/20/16 20:37 Megestrol Acetate (Megace Liq) 800 mg DAILY PO 05/10/16 09:00 05/23/16 09:08 Amlodipine Besylate (Norvasc) 5 mg DAILY PO 05/14/16 09:00 05/23/16 09:09 Tramadol HCl (Ultram) 50 mg Q12H PRN PO CHEST PAIN 05/14/16 10:30 05/23/16 09:09 Insulin Aspart (NovoLOG SUPPLEMENTAL SCALE) 1 Q6H SQ 05/17/16 06:00 05/23/16 11:40 Nitroglycerin (Nitrostat Sl) 0.4 mg Q5M PRN SL CHEST PAIN 05/17/16 15:00 05/20/16 04:08 Nitroglycerin (Nitroglycerin 2% Oint) 2 inch Q6H TOPICAL 05/17/16 16:00 05/23/16 11:37 Albumin Human (Albumin 25% Inj) 25 gm UNSCH PRN IV WITH DIALYSIS 05/19/16 10:15 05/22/16 15:00 Epoetin Kailash (Epogen Inj) 10,000 units UNSCH PRN IV WITH DIALYSIS 05/19/16 10:15 05/22/16 15:01 Dexamethasone Sodium Phosphate (Decadron Inj) 4 mg Q6H IV PUSH 05/20/16 17:00 05/23/16 11:37 Aspirin (Ecotrin Ec) 81 mg DAILY PO 05/23/16 09:00 05/23/16 09:08 Clopidogrel Bisulfate (Plavix) 75 mg DAILY PO 05/23/16 09:00 05/23/16 09:09 Sodium Chloride (NS Flush) 2 ml BID .XX 05/22/16 21:00 05/23/16 09:00 Objective Remarks GENERAL: Elderly female, sitting up in bed in nad. SKIN: Warm and dry. HEAD: Normocephalic. EYES: No injection or drainage. NECK: Supple, trachea midline. CARDIOVASCULAR: +S1/S2 RESPIRATORY: diminished at bases, anterior tran clear. GASTROINTESTINAL: Abdomen soft, non-tender, nondistended. EXTREMITIES: No cyanosis NEUROLOGICAL: awake and alert, normal speech. able to move extremities. Assessment/Plan Problem List: (1) Thrombocytopenia Status: Resolved Plan: --Severe thrombocytopenia due to the Aggrastat. --Will transfuse if any evidence of bleeding or platelet <10K. --platelet count was 276,000 05/16 and dropped to 5000 after receiving Aggrastat. --Peripheral smear did not show any platelet clumping. The platelet morphology appeared normal and there was significantly decreased platelet count. No significant schistocytes noted. --HIT ab neg. 05/17--Received 1U platelet 05/18 platelet trended up to 30K, no bleeding noted. Will monitor her platelet count closely. She can restart antiplatelet agents after her platelet count starts trending up. 05/19 Platelet trended down to 20K. No bleeding noted. Continue to monitor. 05/22: platelets improved. ok to resume antiplatelet therapy (2) CAD (coronary artery disease) Status: Acute Plan: --presented to the hospital with a non-ST elevation myocardial infarction. --was taken to the cath laband a metal stent was placed in the LAD. coded on the table and had a PEA arrest. She was resuscitated. (3) ESRD (end stage renal disease) Status: Acute Plan: --on hemodialysis. (4) Anemia Status: Acute Assessment 85y/o admitted with NSTEMI, Hematology consulted for thrombocytopenia history of end-stage renal disease, coronary artery disease, COPD, congestive heart failure, Plan 1. clear for discharge 2. monitor CBC Attending Statement The exam, history, and the medical decision-making described in the above note were completed with the assistance of the mid-level provider. I reviewed and agree with the findings presented. I attest that I had a [id number] encounter with the patient on the same day, and personally performed and documented my assessment and findings in the medical record. No CP. Feeling better. Tolerating ASA/Plavix. No bleeding noted. Platelet continue to trend up. Can be d/c from hematology standpoint. Problem Qualifiers (1) CAD (coronary artery disease): Qualified Code: I25.10 - Coronary artery disease due to calcified coronary lesion (2) Anemia: Adrienne Padilla May 23, 2016 13:49 Xavi Gant MD May 23, 2016 14:19
--- NOTE | 2016-05-23 16:28 | HHI.PR ---
Subjective Remarks Potassium has stabalized. Compared to yesterday, she has a relative downward trend in her H/H. The H/H will need more stability prior to consideration for a safe discharge. No new complaints from the patient. Objective Vital Signs Date Time Temp Pulse Resp B/P Pulse Ox O2 Delivery O2 Flow Rate FiO2 05/23/16 14:03 Nasal Cannula 2.00 05/23/16 12:30 97.7 77 18 103/62 100 05/23/16 11:02 93 Nasal Cannula 2.00 05/23/16 10:00 86 05/23/16 08:00 98.1 82 18 140/62 99 05/23/16 05:02 94 21 05/23/16 04:00 97.0 80 17 131/60 95 05/23/16 00:00 99.4 84 18 132/64 100 05/22/16 20:00 Nasal Cannula 3.00 05/22/16 20:00 98.3 84 17 142/62 97 05/22/16 20:00 75 05/22/16 18:26 98.8 101 16 127/68 100 I/O 05/22/16 05/22/16 05/22/16 05/23/16 05/23/16 05/23/16 07:00 15:00 23:00 07:00 15:00 23:00 Intake Total 240 ml 240 ml Output Total 0 ml 3000 ml Balance 240 ml -3000 ml 240 ml Intake Oral 240 ml 240 ml Output Urine Total 0 ml Stool Total 0 ml Hemodialysis 3000 ml # Voids 1 # Bowel Movements 1 Result Diagram: 05/23/16 1103 05/23/16 0823 Imaging Last Impressions Head CT 05/19/16 0000 Signed Impressions: Service Date/Time: Thursday, May 19, 2016 14:18 - CONCLUSION: No acute disease. Chano Jimenes MD Chest X-Ray 05/18/16 0000 Signed Impressions: Service Date/Time: May 17:02 - CONCLUSION: Stable chest appearance Tristian Durant MD Aorta CTA 05/10/16 0000 Signed Impressions: Service Date/Time: Tuesday, May 10, 2016 15:13 - CONCLUSION: 1. There is no evidence of aortic dissection. The widening of the mediastinum seen on the chest x-ray appears to represent a combination of pleural fluid and atelectatic lung along the descending thoracic aorta. 2. There are COPD changes within the pulmonary parenchyma. 3. There are small bilateral effusions. 4. The abdominal aorta and iliac vessels are intact. Yehuda Hanna MD Objective Remarks GENERAL: NAD, A&Ox3 SKIN: Warm and dry. HEAD: Normocephalic. EYES: No scleral icterus. No injection or drainage. NECK: Supple, trachea midline. No JVD or lymphadenopathy. CARDIOVASCULAR: Regular rate and rhythm without murmurs, gallops, or rubs. RESPIRATORY: Breath sounds equal bilaterally. No accessory muscle use. GASTROINTESTINAL: Abdomen soft, non-tender, nondistended. MUSCULOSKELETAL: No cyanosis, or edema. BACK: Nontender without obvious deformity. No CVA tenderness. Medications and IVs Administered Medications Medications (Trade) Dose Ordered Sig/Thierry Route PRN Reason Start Time Stop Time Status Last Admin Dose Admin Alprazolam (Xanax) 0.25 mg Q8H PRN PO ANXIETY 05/09/16 17:15 Hold 05/13/16 10:28 Carvedilol (Coreg) 12.5 mg Q12HR PO 05/09/16 21:00 05/23/16 09:08 Docusate Sodium (Colace) 100 mg BID PO 05/09/16 21:00 05/23/16 09:09 Sevelamer Carbonate (Renvela) 800 mg TID PO 05/09/16 18:00 05/23/16 11:37 Acetaminophen (Tylenol) 650 mg Q4H PRN PO TEMP > 100.4 05/09/16 17:30 05/14/16 01:11 Zolpidem Tartrate (Ambien) 5 mg HS PRN PO INSOMNIA 05/09/16 17:30 05/20/16 20:37 Megestrol Acetate (Megace Liq) 800 mg DAILY PO 05/10/16 09:00 05/23/16 09:08 Amlodipine Besylate (Norvasc) 5 mg DAILY PO 05/14/16 09:00 05/23/16 09:09 Tramadol HCl (Ultram) 50 mg Q12H PRN PO CHEST PAIN 05/14/16 10:30 05/23/16 09:09 Insulin Aspart (NovoLOG SUPPLEMENTAL SCALE) 1 Q6H SQ 05/17/16 06:00 05/23/16 11:40 Nitroglycerin (Nitrostat Sl) 0.4 mg Q5M PRN SL CHEST PAIN 05/17/16 15:00 05/20/16 04:08 Nitroglycerin (Nitroglycerin 2% Oint) 2 inch Q6H TOPICAL 05/17/16 16:00 05/23/16 11:37 Albumin Human (Albumin 25% Inj) 25 gm UNSCH PRN IV WITH DIALYSIS 05/19/16 10:15 05/22/16 15:00 Epoetin Kailash (Epogen Inj) 10,000 units UNSCH PRN IV WITH DIALYSIS 05/19/16 10:15 05/22/16 15:01 Dexamethasone Sodium Phosphate (Decadron Inj) 4 mg Q6H IV PUSH 05/20/16 17:00 05/23/16 11:37 Aspirin (Ecotrin Ec) 81 mg DAILY PO 05/23/16 09:00 05/23/16 09:08 Clopidogrel Bisulfate (Plavix) 75 mg DAILY PO 05/23/16 09:00 05/23/16 09:09 Sodium Chloride (NS Flush) 2 ml BID .XX 05/22/16 21:00 05/23/16 09:00 A/P Problem List: (1) Hyperkalemia ICD Code: E87.5 Assessment & Plan: Resovled Follow potassuim levels (2) Weakness ICD Code: R53.1 Assessment & Plan: Improving Continue activity as tolerated (3) Anemia ICD Code: D64.9 Assessment & Plan: Improved compared to admit Follow H/H If trend is flat or upward, discharge will be considered. Yehuda Ware MD May 23, 2016 16:28
--- NOTE | 2016-05-23 16:55 | HHI.HCPN ---
Reason for visit a. To assist with evaluation and management of symptoms including: pain, dyspnea, anxiety, weakness b. To assist medical decision maker(s) with: better understanding of current medical conditions; weighing benefits/burdens of medical treatment options; making medical treatment decisions. . Subjective/Interval History Ms. Meehan is an 85-year-old female admitted to [facility] 05/09/16 for management of chest pain, anemia and CAD. Patient was seen and assessed in room 718, her niece was at bedside visiting from [place]. Patient is alert, but does have intermittent confusion. She is denies chest pain and dyspnea on exam. Afebrile. Hemodynamically stable. Platelets are trending upwards at 123 today - cleared for discharge from hematology standpoint. Cardiology continues to followrecommending hospice. Patient was previously on [facility] but revoked services on admission-will order for [facility] to be reconsulted. . Family/friend interactions Spoke with patient's daughter, Maureen. Update provided on patient's clinical condition. Patient's daughter requesting [facility] be reconsulted prior to discharge-order placed. . Advance Directives Health Care Surrogate: Copy in medical record Durable Power of Agricultural Research Technician: Completed, but not made available Advance Directive Specifics Date completed: 05/18/16 . Health Care Surrogate(s): Patient's daughter, Maureen Sorensen, is designated as the healthcare surrogate. . Documented care wishes: No documented care wishes are available at this time. . Significant change in goals: Return to [facility] with hospice services , Objective Vital Signs Date Time Temp Pulse Resp B/P Pulse Ox O2 Delivery O2 Flow Rate FiO2 05/23/16 14:03 Nasal Cannula 2.00 05/23/16 12:30 97.7 77 18 103/62 100 05/23/16 11:02 93 Nasal Cannula 2.00 05/23/16 10:00 86 05/23/16 08:00 98.1 82 18 140/62 99 05/23/16 05:02 94 21 05/23/16 04:00 97.0 80 17 131/60 95 05/23/16 00:00 99.4 84 18 132/64 100 05/22/16 20:00 Nasal Cannula 3.00 05/22/16 20:00 98.3 84 17 142/62 97 05/22/16 20:00 75 05/22/16 18:26 98.8 101 16 127/68 100 Intake & Output 05/23/16 05/23/16 07:00 19:00 Intake Total 240 ml Balance 240 ml Intake Oral 240 ml # Voids 1 # Bowel Movements 1 . Physical Exam CONSTITUTIONAL/GENERAL: This is an adequately nourished elderly, female patient in no acute distress TUBES/LINES/DRAINS: PIV, AVF SKIN: No jaundice, rashes, or lesions. Ecchymoses on upper extremities. No wounds seen anteriorly. Skin temperature appropriate. Not diaphoretic. HEAD: Atraumatic. Normocephalic. EYES: Pupils equal and round and reactive. ENT: Hearing grossly normal. Nose without bleeding or purulent drainage. NECK: Trachea midline. No JVD. CARDIOVASCULAR: Regular rate and rhythm. + Murmur. Peripheral pulses symmetric. RESPIRATORY/CHEST: On nasal cannula. Breath sounds diminished bilaterally. No wheezes, rales, or rhonchi. GASTROINTESTINAL: Abdomen soft, non-tender, nondistended. . No guarding. Bowel sounds present. GENITOURINARY: Without palpable bladder distension. MUSCULOSKELETAL: Extremities without clubbing, cyanosis, or edema. No obvious deformities LYMPHATICS: No palpable cervical or supraclavicular adenopathy. NEUROLOGICAL: Alert presently with intermittent confusion PSYCHIATRIC: No obvious anxiety/agitation noted. . Diagnostic Tests Laboratory Laboratory Tests Test 05/21/16 05/21/16 05/22/16 05/22/16 06:20 12:10 05:11 09:35 White Blood Count 7.5 TH/MM3 9.6 TH/MM3 10.2 TH/MM3 (4.0-11.0) (4.0-11.0) (4.0-11.0) Red Blood Count 2.78 MIL/MM3 2.75 MIL/MM3 3.00 MIL/MM3 (4.00-5.30) (4.00-5.30) (4.00-5.30) Hemoglobin 8.5 GM/DL 8.6 GM/DL 9.1 GM/DL (11.6-15.3) (11.6-15.3) (11.6-15.3) Hematocrit 24.5 % 25.1 % 27.1 % (35.0-46.0) (35.0-46.0) (35.0-46.0) Mean Corpuscular Volume 88.2 FL 91.1 FL 90.1 FL (80.0-100.0) (80.0-100.0) (80.0-100.0) Mean Corpuscular Hemoglobin 30.7 PG 31.1 PG 30.2 PG (27.0-34.0) (27.0-34.0) (27.0-34.0) Mean Corpuscular Hemoglobin 34.9 % 34.1 % 33.6 % Concent (32.0-36.0) (32.0-36.0) (32.0-36.0) Red Cell Distribution Width 18.5 % 18.5 % 18.0 % (11.6-17.2) (11.6-17.2) (11.6-17.2) Platelet Count 19 TH/MM3 79 TH/MM3 94 TH/MM3 (150-450) (150-450) (150-450) Mean Platelet Volume 10.1 FL 9.4 FL 8.9 FL (7.0-11.0) (7.0-11.0) (7.0-11.0) Neutrophils (%) (Auto) % (16.0-70.0) 90.1 % (16.0-70.0) Lymphocytes (%) (Auto) % (9.0-44.0) 6.6 % (9.0-44.0) Monocytes (%) (Auto) % (0.0-8.0) 3.2 % (0.0-8.0) Eosinophils (%) (Auto) % (0.0-4.0) 0.0 % (0.0-4.0) Basophils (%) (Auto) % (0.0-2.0) 0.1 % (0.0-2.0) Neutrophils # (Auto) TH/MM3 9.2 TH/MM3 (1.8-7.7) (1.8-7.7) Lymphocytes # (Auto) TH/MM3 0.7 TH/MM3 (1.0-4.8) (1.0-4.8) Monocytes # (Auto) TH/MM3 (0-0.9) 0.3 TH/MM3 (0-0.9) Eosinophils # (Auto) TH/MM3 (0-0.4) 0.0 TH/MM3 (0-0.4) Basophils # (Auto) TH/MM3 (0-0.2) 0.0 TH/MM3 (0-0.2) CBC Comment AUTO DIFF AUTO DIFF Differential Total Cells 100 Counted Neutrophils % (Manual) 80 % (16-70) Lymphocytes % 13 % (9-44) Monocytes % 7 % (0-8) Neutrophils # (Manual) 6.0 TH/MM3 (1.8-7.7) Differential Comment FINAL DIFF AUTO DIFF MANUAL CONFIRMED Platelet Estimate RARE (NORMAL) LOW (NORMAL) Platelet Morphology Comment ENLARGED NORMAL (NORMAL) (NORMAL) Acanthocytes OCC (NORMAL) Hematology Comments Sodium Level 131 MEQ/L 130 MEQ/L 131 MEQ/L (136-145) (136-145) (136-145) Potassium Level 6.0 MEQ/L 5.9 MEQ/L 5.4 MEQ/L (3.5-5.1) (3.5-5.1) (3.5-5.1) Chloride Level 96 MEQ/L 92 MEQ/L 93 MEQ/L (98-107) (98-107) (98-107) Carbon Dioxide Level 26.3 MEQ/L 28.7 MEQ/L 28.9 MEQ/L (21.0-32.0) (21.0-32.0) (21.0-32.0) Anion Gap 9 MEQ/L (5-15) 9 MEQ/L (5-15) 9 MEQ/L (5-15) Blood Urea Nitrogen 49 MG/DL (7-18) 52 MG/DL (7-18) 60 MG/DL (7-18) Creatinine 5.14 MG/DL 5.30 MG/DL 5.92 MG/DL (0.50-1.00) (0.50-1.00) (0.50-1.00) Estimat Glomerular Filtration 10 ML/MIN (>89) 9 ML/MIN (>89) 8 ML/MIN (>89) Rate Random Glucose 108 MG/DL 110 MG/DL 110 MG/DL (74-106) (74-106) (74-106) Calcium Level 8.9 MG/DL 9.0 MG/DL 8.8 MG/DL (8.5-10.1) (8.5-10.1) (8.5-10.1) Total Bilirubin 0.5 MG/DL (0.2-1.0) Aspartate Amino Transf 26 U/L (15-37) (AST/SGOT) Alanine Aminotransferase 16 U/L (10-53) (ALT/SGPT) Alkaline Phosphatase 76 U/L (45-117) Total Protein 5.8 GM/DL (6.4-8.2) Albumin 2.8 GM/DL (3.4-5.0) Test 05/23/16 05/23/16 05/23/16 04:33 08:23 11:03 White Blood Count 10.2 TH/MM3 (4.0-11.0) Red Blood Count 2.76 MIL/MM3 (4.00-5.30) Hemoglobin 8.4 GM/DL 8.7 GM/DL (11.6-15.3) (11.6-15.3) Hematocrit 25.0 % 25.1 % (35.0-46.0) (35.0-46.0) Mean Corpuscular Volume 90.5 FL (80.0-100.0) Mean Corpuscular Hemoglobin 30.6 PG (27.0-34.0) Mean Corpuscular Hemoglobin 33.8 % Concent (32.0-36.0) Red Cell Distribution Width 18.0 % (11.6-17.2) Platelet Count 123 TH/MM3 (150-450) Mean Platelet Volume 8.4 FL (7.0-11.0) Sodium Level 137 MEQ/L 136 MEQ/L (136-145) (136-145) Potassium Level 4.0 MEQ/L 3.9 MEQ/L (3.5-5.1) (3.5-5.1) Chloride Level 97 MEQ/L 95 MEQ/L (98-107) (98-107) Carbon Dioxide Level 30.6 MEQ/L 31.5 MEQ/L (21.0-32.0) (21.0-32.0) Anion Gap 9 MEQ/L (5-15) 10 MEQ/L (5-15) Blood Urea Nitrogen 38 MG/DL (7-18) 42 MG/DL (7-18) Creatinine 4.11 MG/DL 4.54 MG/DL (0.50-1.00) (0.50-1.00) Estimat Glomerular Filtration 12 ML/MIN (>89) 11 ML/MIN (>89) Rate Random Glucose 111 MG/DL 127 MG/DL (74-106) (74-106) Calcium Level 8.5 MG/DL 8.7 MG/DL (8.5-10.1) (8.5-10.1) Phosphorus Level 3.3 MG/DL (2.5-4.9) . Result Diagram: 05/23/16 1103 05/23/16 0823 Procedures 05/16/16: Cardiac catheterization 05/16/16: PEA arrest with intubation 05/16/16: extubation . Assessment and Plan Disease Oriented Problem List: (1) NSTEMI (non-ST elevated myocardial infarction) (2) COPD (chronic obstructive pulmonary disease) (3) Hyponatremia (4) Thrombocytopenia (5) Paroxysmal atrial fibrillation (6) Hypertension (7) CAD (coronary artery disease) (8) Unstable angina (9) ESRD (end stage renal disease) (10) Murmur Symptom Scale: (1) Anxiety 0-10 Scale: Unable to quantify (2) Pain 0-10 Scale: Unable to quantify Comment: Patient denies chest pain on exam. PRN tramadol and PRN Nitrostat are available - received 1 dose of tramadol past 24 hours. (3) Dyspnea Comment: Oxygen saturations in the high 90s on 2L via nasal cannula, no symptoms of dyspnea on exam. . Pertinent Non-Medical Issues Psychosocial: Ms. Meehan was born in [place]. 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 Ms. 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 Patient was twice. She her first after 18 years. Her second recently, they were for 9 years. He was a vice president global digital marketing, she describes her second as ' the most wonderful man". She has 2 adult adopted children. A daughter, Maureen, who lives locally. She also has a son, Marty, but they are not close. Spiritual: Patient considers herself spiritual, her second was vice president global digital marketing. She refused high pressure firer visits. Legal: Patient's daughter, Maureen Sorensen, is designated as the health care surrogate. Ethical issues impacting care: Patient is capacitated at the time of my visit. She demonstrates understanding of her illness and the ability to weight benefits and burdens of treatment options. . Important Contacts Florentin Sorensen, daughter: [phone] . Prognosis Patient with extensive CAD s/p cardiac catheterizations in April and May of this year with stent placement. Patient's most recent cardiac catheterization was complicated by a PEA arrest and hypoxemia requiring ACLS and intubation as well as mechanical ventilation. Patient hospitalization complicated by severe thrombocytopenia for which hematology was consulted - and thought was related to restriction of Aggrastat during the procedure. Patient is not a candidate for further aggressive interventions at this time. Hospice care has been recommended. . Code Status: No Code Plan * NO CODE * Decision-making: Patient is having intermittent confusion, would benefit from mutual decision making with her daughter who is the designated health care surrogate. Patient designated her daughter, Maureen Sorensen, as her health care surrogate on 05/18/16. * Goals: Return to [facility] with hospice * Patient was previously on [facility] but revoked services on admission, order placed to reconsult [facility]. * Discussed with nurse (Nadine) and case management. * Symptom managementpain: Patient denies chest pain on exam. PRN tramadol and PRN Nitrostat are available - received 1 dose of tramadol past 24 hours. * Palliative care will continue to follow this patient throughout her hospitalization to establish trust, assist with symptom management and clarification of medical treatment goals. . . Attestation To help prompt me to consider important information that might be impacting today's encounter and assessment, information from prior notes written by myself or my colleagues may have been "brought forward" into today's note. My signature on this note, however, is an attestation that I personally performed the exam, history, and/or decision-making noted today, and, unless otherwise indicated, the interactions with patient, family, and staff as well as the review of records all occurred today. I also attest that the listed assessment and stated plan reflect my best clinical judgment today based on the combination of historical information, prior notes, and today's exam/ interactions. When time spent is documented, it refers only to time spent today by the signer, or if indicated, combined time spent today by collaborating physician/nurse practitioner. . Paradise Franco May 23, 2016 16:55
[2016-05-24] VITALS (8 sets, daily range): BP systolic 109–152; BP diastolic 58–75; PULSE 74–96; RESP 16–20; TEMP 97.6–99.1; O2SAT 96–100
[2016-05-24] MEDS: traMADol HCL 50 MG TAB PO PRN ×2 (00:49→21:19)
[2016-05-24] MEDS: INSULIN ASPART SUPPLEMENTAL SCALE SQ SCH ×4 (06:00→22:28)
[2016-05-24] MEDS: DEXAMETHASONE SOD PHOS 4 MG/ML VIAL IV PUSH SCH ×4 (06:13→22:28)
[2016-05-24] MEDS: NITROGLYCERIN 2% OINT 1 GM PACKET TOPICAL SCH ×4 (06:14→21:20)
[2016-05-24] MEDS: SEVELAMER CARBONATE 800 MG TAB PO SCH ×3 (09:00→18:05)
--- NOTE | 2016-05-24 09:32 | HHI.NPPN ---
Subjective General Problems: Anemia Renal Failure: Chronic, End Stage Renal Disease Interval History Seen during dialysis. She is complaining of a sore throat. (Lelo Chong) Review of Systems General Constitutional: Fatigue (Lelo Chong) Cardiovascular Cardiac: Chest Pain (Lelo Chong) Objective Data Data 05/23/16 05/24/16 19:00 07:00 Intake Total 480 ml Balance 480 ml Intake Oral 480 ml # Voids 2 Vital Signs Date Time Temp Pulse Resp B/P Pulse Ox O2 Delivery O2 Flow Rate FiO2 05/24/16 04:00 97.6 96 16 129/68 96 05/24/16 01:54 18 05/24/16 00:00 Nasal Cannula 2.00 21 05/24/16 00:00 99.1 85 18 130/62 97 05/23/16 22:10 Room Air 05/23/16 22:03 98 Nasal Cannula 2.00 05/23/16 20:20 87 05/23/16 20:00 98.3 90 17 99/54 97 05/23/16 16:00 98.4 82 18 120/65 100 05/23/16 14:03 Nasal Cannula 2.00 05/23/16 12:30 97.7 77 18 103/62 100 05/23/16 11:02 93 Nasal Cannula 2.00 05/23/16 10:00 86 (Lelo Chong) -: 05/23/16 1103 05/23/16 0823 Physical Exam General Appearance: Well Developed, Well Nourished, No Acute Distress, Comfortable, Malnourished (Lelo Chong) Eyes Eye Exam: Pupils Equal (Lelo Chong) Throat Throat Exam: Oral Mucosa [place] & Moist (Lelo Chong) Neck Neck Exam: Neck Supple (Lelo Chong) Pulmonary Resp Exam: Clear Bilaterally, Breath Sounds Equal, No Distress (Lelo Chong) Cardiology CV Exam: Regular, Normal Sinus Rhythm, Good Perfusion, Dyspnea on Exertion ( Lelo Chong) Gastrointestinal/Abdomen GI Exam: Soft, Non-Tender, Bowel Sounds Present (Lelo Chong) Musculoskeletal MS Exam: Joints Intact, Normal Tone (Lelo Chong) Integumentary Skin Exam: Clear, Warm, Dry, Intact (Lelo Chong) Extremeties Extremities Exam: No Edema, Pedal Pulses Palpable Extremeties Remarks right AVF, accessed during HD, some bruising around site (Lelo Chong) Neurologic Neuro Exam: Alert, Awake, Oriented, Speech Clear, Moving All Extremities ( Lelo Chong) Assessment/Plan Discussed Condition With: Patient Assessment Summary: Anemia of CKD, CHF, Hypertension, End Stage Renal Disease Electrolyte Assessment: Hyperkalemia Problem List: (1) ESRD (end stage renal disease) Plan: HD MWF, seen during dialysis on a 2K, 350 BFR, goal 3L K is normal no acute renal concerns avoid IVF, gadolinium functioning AVF for dialysis stable for discharge, she has existing outpatient HD arrangements (2) CAD (coronary artery disease) Plan: adjust UF with dialysis as tolerated/required cardiology following sp cath with stent to LAD, EF 45% no further PCI per Dr. Valentin she was evaluated by palliative , declined hospice (3) Anemia Plan: on Epogen with HD Hb 8.7, repeat and monitor for improvement transfuse PRN, she has received 5 units PRBC since admission (4) Atrial fibrillation Plan: Rate controlled follow with cardiology (5) Thrombocytopenia Plan: acute, improving, due to Aggrastat antiplatelets have been resumed (Lelo Chong) Plan patient was seen and examined during dialysis. Agree with above assessment and plan. Hospice reconsulted. She can be discharged from renal standpoint. (Roland Miramontes MD) Problem Qualifiers (1) CAD (coronary artery disease): Qualified Code: I25.10 - Coronary artery disease due to calcified coronary lesion (2) Anemia: Lelo Chong May 24, 2016 09:32 Roland Miramontes MD May 24, 2016 09:45
[2016-05-24] MEDS: EPOETIN ALFA 10,000 UNITS/ML VIAL IV PRN (10:11)
[2016-05-24] MEDS: ALBUMIN HUMAN 25% 25 GM/100 ML BAGP IV PRN (10:14)
[2016-05-24] MEDS ORDERED: BENZOCAINE 6 MG/MENTHOL 10 MG LOZENGE BUCCAL ONE (11:00)
--- NOTE | 2016-05-24 13:18 | PD.CARD.PN ---
Subjective Subjective Remarks crying, denies chest pain, in nad Objective Vital Signs / I&O Vital Signs Date Time Temp Pulse Resp B/P Pulse Ox O2 Delivery O2 Flow Rate FiO2 05/24/16 07:30 77 05/24/16 04:00 97.6 96 16 129/68 96 05/24/16 01:54 18 05/24/16 00:00 Nasal Cannula 2.00 21 05/24/16 00:00 99.1 85 18 130/62 97 05/23/16 22:10 Room Air 05/23/16 22:03 98 Nasal Cannula 2.00 05/23/16 20:20 87 05/23/16 20:00 98.3 90 17 99/54 97 05/23/16 16:00 98.4 82 18 120/65 100 05/23/16 14:03 Nasal Cannula 2.00 I/O 05/23/16 05/23/16 05/23/16 05/24/16 05/24/16 05/24/16 07:00 15:00 23:00 07:00 15:00 23:00 Intake Total 240 ml 480 ml Output Total 4000 ml Balance 240 ml 480 ml -4000 ml Intake Oral 240 ml 480 ml Hemodialysis 4000 ml # Voids 1 2 # Bowel Movements 1 Physical Exam GENERAL: SKIN: Warm and dry. HEAD: Normocephalic. EYES: No scleral icterus. No injection or drainage. NECK: Supple, trachea midline. No JVD or lymphadenopathy. CARDIOVASCULAR: Regular rate and rhythm without murmurs, gallops, or rubs. RESPIRATORY: Breath sounds equal bilaterally. No accessory muscle use. GASTROINTESTINAL: Abdomen soft, non-tender, nondistended. MUSCULOSKELETAL: No cyanosis, or edema. BACK: Nontender without obvious deformity. No CVA tenderness. Assessment and Plan Problem List: (1) Atrial fibrillation, new onset (2) Aortic stenosis (3) Hypertension (4) Hyperlipidemia (5) Depression (6) CAD (coronary artery disease) (7) Chest pain (8) Cardiomyopathy Assessment and Plan 1.) CAD - no chest pain x 48 hrs, s/p pci bms mid lad, small diagonal vessel jailed but patent, continue dapt as plt>50; chest pain resolved, elevated troponin due to jailed 90% ostial small dx vessel and esrd, do not think this is a life threatening stenosis or that requires admission, o/w patient is completely revascularized 2.) PAF - in nsr, assymptomatic, eliquis held d/t thrombocytopenia 3.) PEA - suspect d/t apnea from fentanyl and/or versed, trop elevated due to pea and esrd, trending down pci; patient is hospice, do not rec recurrent cath due to high risk d/t thrombocytopenia, pea from conscience sedation from fentanyl/versed and inability to access diagonal vessel d/t vessel tortuosity and 90 degreee angle off lad; rec palliative care consult, prn ntg 4.) Ok to dc from cv standpoint, f/u with me hellen; rec hospice, patient undecided 6.) thrombocytopenia - improved, = 129k today 6.) Stridor - possibly related to narcotics, known allergy to dilaudid, mso4, pea/apnea with fentanyl, had stridor with percocet, rec dc percocet 7.) Anemia - hgb improved Problem Qualifiers (1) Hypertension: Qualified Code: I10 - Essential hypertension (2) CAD (coronary artery disease): Qualified Code: I25.10 - Coronary artery disease due to calcified coronary lesion (3) Chest pain: Qualified Code: R07.2 - Precordial pain Zohaib Valentin MD May 24, 2016 13:18
[2016-05-24] MEDS: MEGESTROL ACETATE SUSP 400 MG/10 ML CUP PO SCH (14:08)
[2016-05-24] MEDS: CARVEDILOL 12.5 MG TAB PO SCH ×2 (14:09→21:18)
[2016-05-24] MEDS: ASPIRIN EC 81 MG TABEC PO SCH (14:09)
[2016-05-24] MEDS: DOCUSATE SODIUM 100 MG CAP PO SCH ×2 (14:09→21:00)
[2016-05-24] MEDS: amLODIPine BESYLATE 5 MG TAB PO SCH (14:09)
[2016-05-24] MEDS: CLOPIDOGREL 75 MG TAB PO SCH (14:10)
[2016-05-24] MEDS: SODIUM CHLORIDE 0.9% FLUSH 10 ML FLUSH SCH ×2 (14:10→21:20)
[2016-05-24 16:27] LABS: HEMATOCRIT 31.7 % (35.0-46.0)
[2016-05-24 16:28] LABS: REVIEW FLAG FINAL
--- NOTE | 2016-05-24 17:13 | PD.ONC.PN ---
Subjective Subjective Remarks No bleeding. No SOB/CP. Objective Data Date Time Temp Pulse Resp B/P Pulse Ox O2 Delivery O2 Flow Rate FiO2 05/24/16 15:57 98 Nasal Cannula 3.00 05/24/16 14:48 Nasal Cannula 2.00 05/24/16 13:30 97.9 74 20 152/75 100 05/24/16 07:30 77 05/24/16 04:00 97.6 96 16 129/68 96 05/24/16 01:54 18 05/24/16 00:00 Nasal Cannula 2.00 21 05/24/16 00:00 99.1 85 18 130/62 97 05/23/16 22:10 Room Air 05/23/16 22:03 98 Nasal Cannula 2.00 05/23/16 20:20 87 05/23/16 20:00 98.3 90 17 99/54 97 05/24/16 05/24/16 05/24/16 07:00 15:00 23:00 Output Total 4000 ml Balance -4000 ml Result Diagram: 05/24/16 1508 05/23/16 0823 Laboratory Results Laboratory Tests Test 05/24/16 15:08 Hemoglobin 10.4 GM/DL Hematocrit 31.7 % Administered Medications Medications (Trade) Dose Ordered Sig/Thierry Route PRN Reason Start Time Stop Time Status Last Admin Dose Admin Alprazolam (Xanax) 0.25 mg Q8H PRN PO ANXIETY 05/09/16 17:15 Hold 05/13/16 10:28 Carvedilol (Coreg) 12.5 mg Q12HR PO 05/09/16 21:00 05/24/16 14:09 Docusate Sodium (Colace) 100 mg BID PO 05/09/16 21:00 05/24/16 14:09 Sevelamer Carbonate (Renvela) 800 mg TID PO 05/09/16 18:00 05/24/16 14:09 Acetaminophen (Tylenol) 650 mg Q4H PRN PO TEMP > 100.4 05/09/16 17:30 05/14/16 01:11 Zolpidem Tartrate (Ambien) 5 mg HS PRN PO INSOMNIA 05/09/16 17:30 05/20/16 20:37 Megestrol Acetate (Megace Liq) 800 mg DAILY PO 05/10/16 09:00 05/24/16 14:08 Amlodipine Besylate (Norvasc) 5 mg DAILY PO 05/14/16 09:00 05/24/16 14:09 Tramadol HCl (Ultram) 50 mg Q12H PRN PO CHEST PAIN 05/14/16 10:30 05/24/16 00:49 Insulin Aspart (NovoLOG SUPPLEMENTAL SCALE) 1 Q6H SQ 05/17/16 06:00 05/23/16 22:11 Nitroglycerin (Nitrostat Sl) 0.4 mg Q5M PRN SL CHEST PAIN 05/17/16 15:00 05/20/16 04:08 Nitroglycerin (Nitroglycerin 2% Oint) 2 inch Q6H TOPICAL 05/17/16 16:00 05/24/16 14:09 Albumin Human (Albumin 25% Inj) 25 gm UNSCH PRN IV WITH DIALYSIS 05/19/16 10:15 05/24/16 10:14 Epoetin Kailash (Epogen Inj) 10,000 units UNSCH PRN IV WITH DIALYSIS 05/19/16 10:15 05/24/16 10:11 Dexamethasone Sodium Phosphate (Decadron Inj) 4 mg Q6H IV PUSH 05/20/16 17:00 05/24/16 14:09 Aspirin (Ecotrin Ec) 81 mg DAILY PO 05/23/16 09:00 05/24/16 14:09 Clopidogrel Bisulfate (Plavix) 75 mg DAILY PO 05/23/16 09:00 05/24/16 14:10 Sodium Chloride (NS Flush) 2 ml BID .XX 05/22/16 21:00 05/24/16 14:10 Objective Remarks GENERAL: Well-nourished, well-developed patient.Weak SKIN: Warm and dry. HEAD: Normocephalic. EYES: No scleral icterus. No injection or drainage. NECK: Supple, trachea midline. No JVD or lymphadenopathy. LYMPHATIC: No adenopathy. CARDIOVASCULAR: Regular rate and rhythm without murmurs. RESPIRATORY: Breath sounds equal bilaterally. No accessory muscle use. GASTROINTESTINAL: Abdomen soft, non-tender, nondistended. EXTREMITIES: No cyanosis, or edema. MUSCULOSKELETAL: Adequate muscle tone. NEUROLOGICAL: No obvious focal deficit. Awake, alert, and oriented x3. PSYCHIATRIC: Appropriate mood and affect; insight and judgment normal. Assessment/Plan Problem List: (1) Thrombocytopenia Status: Resolved Plan: --Severe thrombocytopenia due to the Aggrastat. --Will transfuse if any evidence of bleeding or platelet <10K. --platelet count was 276,000 05/16 and dropped to 5000 after receiving Aggrastat. --Peripheral smear did not show any platelet clumping. The platelet morphology appeared normal and there was significantly decreased platelet count. No significant schistocytes noted. --HIT ab neg. 05/17--Received 1U platelet 05/18 platelet trended up to 30K, no bleeding noted. Will monitor her platelet count closely. She can restart antiplatelet agents after her platelet count starts trending up. 05/19 Platelet trended down to 20K. No bleeding noted. Continue to monitor. 05/22: platelets improved. ok to resume antiplatelet therapy 419: Platelet trended up to 123 05/23. No bleeding with antiplatelet agents. (2) CAD (coronary artery disease) Status: Acute Plan: --presented to the hospital with a non-ST elevation myocardial infarction. --was taken to the cath laband a metal stent was placed in the LAD. coded on the table and had a PEA arrest. She was resuscitated. (3) ESRD (end stage renal disease) Status: Acute Plan: --on hemodialysis. (4) Anemia Status: Acute Assessment 85y/o admitted with NSTEMI, Hematology consulted for thrombocytopenia history of end-stage renal disease, coronary artery disease, COPD, congestive heart failure, Plan 1. clear for discharge From hematology standpoint. Discussed with pt and her daughter. Problem Qualifiers (1) CAD (coronary artery disease): Qualified Code: I25.10 - Coronary artery disease due to calcified coronary lesion (2) Anemia: Xavi Gant MD May 24, 2016 17:12
--- NOTE | 2016-05-24 18:04 | HHI.PR ---
Subjective Remarks Improved stability. Hgb shows marked improvement since yesterday (now at 10.4) . She will be discharging to a care facility, likely tomorrow if stability continues. Objective Vital Signs Date Time Temp Pulse Resp B/P Pulse Ox O2 Delivery O2 Flow Rate FiO2 05/24/16 16:00 98.6 74 20 109/61 100 05/24/16 15:57 98 Nasal Cannula 3.00 05/24/16 14:48 Nasal Cannula 2.00 05/24/16 13:30 97.9 74 20 152/75 100 05/24/16 07:30 77 05/24/16 04:00 97.6 96 16 129/68 96 05/24/16 01:54 18 05/24/16 00:00 Nasal Cannula 2.00 21 05/24/16 00:00 99.1 85 18 130/62 97 05/23/16 22:10 Room Air 05/23/16 22:03 98 Nasal Cannula 2.00 05/23/16 20:20 87 05/23/16 20:00 98.3 90 17 99/54 97 I/O 05/23/16 05/23/16 05/23/16 05/24/16 05/24/16 05/24/16 07:00 15:00 23:00 07:00 15:00 23:00 Intake Total 240 ml 480 ml Output Total 4000 ml Balance 240 ml 480 ml -4000 ml Intake Oral 240 ml 480 ml Hemodialysis 4000 ml # Voids 1 2 # Bowel Movements 1 Result Diagram: 05/24/16 1508 05/23/16 0823 Objective Remarks GENERAL: NAD, A&Ox3 SKIN: Warm and dry. HEAD: Normocephalic. EYES: No scleral icterus. No injection or drainage. NECK: Supple, trachea midline. No JVD or lymphadenopathy. CARDIOVASCULAR: Regular rate and rhythm without murmurs, gallops, or rubs. RESPIRATORY: Breath sounds equal bilaterally. No accessory muscle use. GASTROINTESTINAL: Abdomen soft, non-tender, nondistended. MUSCULOSKELETAL: No cyanosis, or edema. BACK: Nontender without obvious deformity. No CVA tenderness. Medications and IVs Administered Medications Medications (Trade) Dose Ordered Sig/Thierry Route PRN Reason Start Time Stop Time Status Last Admin Dose Admin Alprazolam (Xanax) 0.25 mg Q8H PRN PO ANXIETY 05/09/16 17:15 Hold 05/13/16 10:28 Carvedilol (Coreg) 12.5 mg Q12HR PO 05/09/16 21:00 05/24/16 14:09 Docusate Sodium (Colace) 100 mg BID PO 05/09/16 21:00 05/24/16 14:09 Sevelamer Carbonate (Renvela) 800 mg TID PO 05/09/16 18:00 05/24/16 14:09 Acetaminophen (Tylenol) 650 mg Q4H PRN PO TEMP > 100.4 05/09/16 17:30 05/14/16 01:11 Zolpidem Tartrate (Ambien) 5 mg HS PRN PO INSOMNIA 05/09/16 17:30 05/20/16 20:37 Megestrol Acetate (Megace Liq) 800 mg DAILY PO 05/10/16 09:00 05/24/16 14:08 Amlodipine Besylate (Norvasc) 5 mg DAILY PO 05/14/16 09:00 05/24/16 14:09 Tramadol HCl (Ultram) 50 mg Q12H PRN PO CHEST PAIN 05/14/16 10:30 05/24/16 00:49 Insulin Aspart (NovoLOG SUPPLEMENTAL SCALE) 1 Q6H SQ 05/17/16 06:00 05/23/16 22:11 Nitroglycerin (Nitrostat Sl) 0.4 mg Q5M PRN SL CHEST PAIN 05/17/16 15:00 05/20/16 04:08 Nitroglycerin (Nitroglycerin 2% Oint) 2 inch Q6H TOPICAL 05/17/16 16:00 05/24/16 14:09 Albumin Human (Albumin 25% Inj) 25 gm UNSCH PRN IV WITH DIALYSIS 05/19/16 10:15 05/24/16 10:14 Epoetin Kailash (Epogen Inj) 10,000 units UNSCH PRN IV WITH DIALYSIS 05/19/16 10:15 05/24/16 10:11 Dexamethasone Sodium Phosphate (Decadron Inj) 4 mg Q6H IV PUSH 05/20/16 17:00 05/24/16 14:09 Aspirin (Ecotrin Ec) 81 mg DAILY PO 05/23/16 09:00 05/24/16 14:09 Clopidogrel Bisulfate (Plavix) 75 mg DAILY PO 05/23/16 09:00 05/24/16 14:10 Sodium Chloride (NS Flush) 2 ml BID .XX 05/22/16 21:00 05/24/16 14:10 A/P Problem List: (1) Hyperkalemia ICD Code: E87.5 Assessment & Plan: Resovled Follow potassuim levels (2) Weakness ICD Code: R53.1 Assessment & Plan: Improving Continue activity as tolerated PT (3) Anemia ICD Code: D64.9 Assessment & Plan: Improving daily now Improved compared to admit Follow H/H Discharge Planning Potential for discharge tomorrow if Hgb remains stable. Yehuda Ware MD May 24, 2016 6:04 pm
[2016-05-25] VITALS (8 sets, daily range): BP systolic 96–139; BP diastolic 51–68; PULSE 64–79; RESP 16–28; TEMP 96.5–99.3; O2SAT 95–100
[2016-05-25] MEDS: NITROGLYCERIN 2% OINT 1 GM PACKET TOPICAL SCH ×4 (04:03→22:19)
[2016-05-25] MEDS: ACETAMINOPHEN 325 MG TAB PO PRN ×2 (04:04→19:42)
[2016-05-25] MEDS: DEXAMETHASONE SOD PHOS 4 MG/ML VIAL IV PUSH SCH ×4 (04:04→22:30)
[2016-05-25] MEDS: INSULIN ASPART SUPPLEMENTAL SCALE SQ SCH ×4 (05:42→22:36)
--- NOTE | 2016-05-25 07:57 | PD.ONC.PN ---
Subjective Subjective Remarks No CP overnight. No bleeding. Objective Data Date Time Temp Pulse Resp B/P Pulse Ox O2 Delivery O2 Flow Rate FiO2 05/25/16 05:04 17 05/25/16 04:13 Nasal Cannula 3.00 21 05/25/16 04:00 97.9 75 16 122/58 100 05/25/16 00:45 98.0 73 16 96/51 99 05/24/16 22:19 18 05/24/16 21:20 Nasal Cannula 3.00 21 05/24/16 20:02 83 05/24/16 20:00 98.2 76 17 116/58 100 05/24/16 16:00 98.6 74 20 109/61 100 05/24/16 15:57 98 Nasal Cannula 3.00 05/24/16 14:48 Nasal Cannula 2.00 05/24/16 13:30 97.9 74 20 152/75 100 Result Diagram: 05/24/16 1508 05/23/16 0823 Laboratory Results Laboratory Tests Test 05/24/16 15:08 Hemoglobin 10.4 GM/DL Hematocrit 31.7 % Administered Medications Medications (Trade) Dose Ordered Sig/Thierry Route PRN Reason Start Time Stop Time Status Last Admin Dose Admin Alprazolam (Xanax) 0.25 mg Q8H PRN PO ANXIETY 05/09/16 17:15 Hold 05/13/16 10:28 Carvedilol (Coreg) 12.5 mg Q12HR PO 05/09/16 21:00 05/24/16 21:18 Docusate Sodium (Colace) 100 mg BID PO 05/09/16 21:00 05/24/16 14:09 Sevelamer Carbonate (Renvela) 800 mg TID PO 05/09/16 18:00 05/24/16 18:05 Acetaminophen (Tylenol) 650 mg Q4H PRN PO TEMP > 100.4 05/09/16 17:30 05/14/16 01:11 Zolpidem Tartrate (Ambien) 5 mg HS PRN PO INSOMNIA 05/09/16 17:30 05/20/16 20:37 Megestrol Acetate (Megace Liq) 800 mg DAILY PO 05/10/16 09:00 05/24/16 14:08 Amlodipine Besylate (Norvasc) 5 mg DAILY PO 05/14/16 09:00 05/24/16 14:09 Tramadol HCl (Ultram) 50 mg Q12H PRN PO CHEST PAIN 05/14/16 10:30 05/24/16 21:19 Insulin Aspart (NovoLOG SUPPLEMENTAL SCALE) 1 Q6H SQ 05/17/16 06:00 05/25/16 05:42 Nitroglycerin (Nitrostat Sl) 0.4 mg Q5M PRN SL CHEST PAIN 05/17/16 15:00 05/20/16 04:08 Nitroglycerin (Nitroglycerin 2% Oint) 2 inch Q6H TOPICAL 05/17/16 16:00 05/25/16 04:03 Albumin Human (Albumin 25% Inj) 25 gm UNSCH PRN IV WITH DIALYSIS 05/19/16 10:15 05/24/16 10:14 Acetaminophen (Tylenol) 650 mg UNSCH PRN PO for headach, pain, temp > 101F 05/19/16 10:15 05/25/16 04:04 Epoetin Kailash (Epogen Inj) 10,000 units UNSCH PRN IV WITH DIALYSIS 05/19/16 10:15 05/24/16 10:11 Dexamethasone Sodium Phosphate (Decadron Inj) 4 mg Q6H IV PUSH 05/20/16 17:00 05/25/16 04:04 Aspirin (Ecotrin Ec) 81 mg DAILY PO 05/23/16 09:00 05/24/16 14:09 Clopidogrel Bisulfate (Plavix) 75 mg DAILY PO 05/23/16 09:00 05/24/16 14:10 Sodium Chloride (NS Flush) 2 ml BID .XX 05/22/16 21:00 05/24/16 21:20 Objective Remarks GENERAL: Well-nourished, well-developed patient. Weak SKIN: Warm and dry. HEAD: Normocephalic. EYES: No scleral icterus. No injection or drainage. NECK: Supple, trachea midline. No JVD or lymphadenopathy. LYMPHATIC: No adenopathy. CARDIOVASCULAR: Regular rate and rhythm without murmurs. RESPIRATORY: Breath sounds equal bilaterally. No accessory muscle use. GASTROINTESTINAL: Abdomen soft, non-tender, nondistended. EXTREMITIES: No cyanosis, or edema. MUSCULOSKELETAL: Adequate muscle tone. NEUROLOGICAL: No obvious focal deficit. Awake, alert, and oriented x3. PSYCHIATRIC: Appropriate mood and affect; insight and judgment normal. Assessment/Plan Problem List: (1) Thrombocytopenia Status: Resolved Plan: --Severe thrombocytopenia due to the Aggrastat. --Will transfuse if any evidence of bleeding or platelet <10K. --platelet count was 276,000 05/16 and dropped to 5000 after receiving Aggrastat. --Peripheral smear did not show any platelet clumping. The platelet morphology appeared normal and there was significantly decreased platelet count. No significant schistocytes noted. --HIT ab neg. 05/17--Received 1U platelet 05/18 platelet trended up to 30K, no bleeding noted. Will monitor her platelet count closely. She can restart antiplatelet agents after her platelet count starts trending up. 05/19 Platelet trended down to 20K. No bleeding noted. Continue to monitor. 05/22: platelets improved. ok to resume antiplatelet therapy 05/24: Platelet trended up to 123 05/23. No bleeding with antiplatelet agents. (2) CAD (coronary artery disease) Status: Acute Plan: --presented to the hospital with a non-ST elevation myocardial infarction. --was taken to the cath laband a metal stent was placed in the LAD. coded on the table and had a PEA arrest. She was resuscitated. (3) ESRD (end stage renal disease) Status: Acute Plan: --on hemodialysis. (4) Anemia Status: Acute Plan: Hgb stable, no apparent bleeding while on antiplatelet agents. Assessment 85y/o admitted with NSTEMI, Hematology consulted for thrombocytopenia history of end-stage renal disease, coronary artery disease, COPD, congestive heart failure, Thrombocytopenia resolving. Plan 1. clear for discharge From hematology standpoint. Hematology will sign off. Problem Qualifiers (1) CAD (coronary artery disease): Qualified Code: I25.10 - Coronary artery disease due to calcified coronary lesion (2) Anemia: Xavi Gant MD May 25, 2016 07:57
--- NOTE | 2016-05-25 08:37 | HHI.NPPN ---
Subjective General Problems: Anemia Renal Failure: Chronic, End Stage Renal Disease Interval History she had dialysis yesterday. No new issues noted today. Remains on oxygen. Generalized muscle wasting. Hematology has signed off, she is cleared for discharge. Review of Systems General Constitutional: Fatigue Cardiovascular Cardiac: Chest Pain Objective Data Data 05/24/16 05/25/16 19:00 07:00 Intake Total 240 ml 240 ml Output Total 4000 ml Balance -3760 ml 240 ml Intake Oral 240 ml 240 ml Hemodialysis 4000 ml # Voids 0 1 # Bowel Movements 1 Vital Signs Date Time Temp Pulse Resp B/P Pulse Ox O2 Delivery O2 Flow Rate FiO2 05/25/16 08:10 95 Nasal Cannula 3.00 05/25/16 05:04 17 05/25/16 04:13 Nasal Cannula 3.00 21 05/25/16 04:00 97.9 75 16 122/58 100 05/25/16 00:45 98.0 73 16 96/51 99 05/24/16 22:19 18 05/24/16 21:20 Nasal Cannula 3.00 21 05/24/16 20:02 83 05/24/16 20:00 98.2 76 17 116/58 100 05/24/16 16:00 98.6 74 20 109/61 100 05/24/16 15:57 98 Nasal Cannula 3.00 05/24/16 14:48 Nasal Cannula 2.00 05/24/16 13:30 97.9 74 20 152/75 100 -: 05/24/16 1508 05/23/16 0823 Physical Exam General Appearance: Well Developed, Well Nourished, No Acute Distress, Comfortable, Malnourished Eyes Eye Exam: Pupils Equal Throat Throat Exam: Oral Mucosa [place] & Moist Neck Neck Exam: Neck Supple Pulmonary Resp Exam: Clear Bilaterally, Breath Sounds Equal, No Distress Cardiology CV Exam: Regular, Normal Sinus Rhythm, Good Perfusion, Dyspnea on Exertion Gastrointestinal/Abdomen GI Exam: Soft, Non-Tender, Bowel Sounds Present Musculoskeletal MS Exam: Joints Intact, Normal Tone Integumentary Skin Exam: Clear, Warm, Dry, Intact Extremeties Extremities Exam: No Edema, Pedal Pulses Palpable Neurologic Neuro Exam: Alert, Awake, Oriented, Speech Clear, Moving All Extremities Assessment/Plan Discussed Condition With: Patient Assessment Summary: Anemia of CKD, CHF, Hypertension, End Stage Renal Disease Electrolyte Assessment: Hyperkalemia Problem List: (1) ESRD (end stage renal disease) Plan: HD to be continued MWF. no acute renal concerns avoid IVF, gadolinium stable for discharge, she has existing outpatient HD arrangements (2) CAD (coronary artery disease) Plan: adjust UF with dialysis as tolerated/required cardiology following sp cath with stent to LAD, EF 45% no further PCI per Dr. Valentin she was evaluated by palliative , declined hospice (3) Anemia Plan: Hemoglobin has improved. Continue Epogen. (4) Atrial fibrillation Plan: Rate controlled follow with cardiology (5) Thrombocytopenia Plan: acute, improving, due to Aggrastat antiplatelets have been resumed Plan She can be discharged from renal standpoint. Problem Qualifiers (1) CAD (coronary artery disease): Qualified Code: I25.10 - Coronary artery disease due to calcified coronary lesion (2) Anemia: Roland Miramontes MD May 25, 2016 08:37
[2016-05-25 08:54] LABS: HEMATOCRIT 29.4 % (35.0-46.0); MEAN CELL VOLUME 90.9 FL (80.0-100.0); MEAN CORPUSCULAR HEMOGLOBIN 30.5 PG (27.0-34.0); MEAN CORPUSCULAR HGB CONC 33.6 % (32.0-36.0); PLATELET COUNT 285 TH/MM3 (150-450); RED BLOOD COUNT 3.23 MIL/MM3 (4.00-5.30); RED CELL DISTRIBUTION WIDTH 18.1 % (11.6-17.2); REVIEW FLAG FINAL; WHITE BLOOD COUNT 13.8 TH/MM3 (4.0-11.0)
[2016-05-25] MEDS: CLOPIDOGREL 75 MG TAB PO SCH (09:04)
[2016-05-25] MEDS: SEVELAMER CARBONATE 800 MG TAB PO SCH ×3 (09:04→16:23)
[2016-05-25] MEDS: MEGESTROL ACETATE SUSP 400 MG/10 ML CUP PO SCH (09:04)
[2016-05-25] MEDS: amLODIPine BESYLATE 5 MG TAB PO SCH (09:04)
[2016-05-25] MEDS: ASPIRIN EC 81 MG TABEC PO SCH (09:04)
[2016-05-25] MEDS: CARVEDILOL 12.5 MG TAB PO SCH ×2 (09:04→20:38)
[2016-05-25] MEDS: SODIUM CHLORIDE 0.9% FLUSH 10 ML FLUSH SCH ×2 (09:04→20:39)
[2016-05-25] MEDS: DOCUSATE SODIUM 100 MG CAP PO SCH ×2 (09:04→20:41)
--- NOTE | 2016-05-25 09:25 | PD.CARD.PN ---
Subjective Subjective Remarks alert in nad Objective Vital Signs / I&O Vital Signs Date Time Temp Pulse Resp B/P Pulse Ox O2 Delivery O2 Flow Rate FiO2 05/25/16 08:10 95 Nasal Cannula 3.00 05/25/16 08:00 96.5 79 16 129/66 95 05/25/16 05:04 17 05/25/16 04:13 Nasal Cannula 3.00 21 05/25/16 04:00 97.9 75 16 122/58 100 05/25/16 00:45 98.0 73 16 96/51 99 05/24/16 22:19 18 05/24/16 21:20 Nasal Cannula 3.00 21 05/24/16 20:02 83 05/24/16 20:00 98.2 76 17 116/58 100 05/24/16 16:00 98.6 74 20 109/61 100 05/24/16 15:57 98 Nasal Cannula 3.00 05/24/16 14:48 Nasal Cannula 2.00 05/24/16 13:30 97.9 74 20 152/75 100 I/O 05/24/16 05/24/16 05/24/16 05/25/16 05/25/16 05/25/16 07:00 15:00 23:00 07:00 15:00 23:00 Intake Total 240 ml 240 ml Output Total 4000 ml Balance -4000 ml 240 ml 240 ml Intake Oral 240 ml 240 ml Hemodialysis 4000 ml # Voids 2 1 # Bowel Movements 1 Physical Exam GENERAL: SKIN: Warm and dry. HEAD: Normocephalic. EYES: No scleral icterus. No injection or drainage. NECK: Supple, trachea midline. No JVD or lymphadenopathy. CARDIOVASCULAR: Regular rate and rhythm without murmurs, gallops, or rubs. RESPIRATORY: Breath sounds equal bilaterally. No accessory muscle use. GASTROINTESTINAL: Abdomen soft, non-tender, nondistended. MUSCULOSKELETAL: No cyanosis, or edema. BACK: Nontender without obvious deformity. No CVA tenderness. Laboratory Laboratory Tests Test 05/24/16 05/25/16 15:08 08:20 Hemoglobin 10.4 GM/DL 9.9 GM/DL Hematocrit 31.7 % 29.4 % White Blood Count 13.8 TH/MM3 Red Blood Count 3.23 MIL/MM3 Mean Corpuscular Volume 90.9 FL Mean Corpuscular Hemoglobin 30.5 PG Mean Corpuscular Hemoglobin 33.6 % Concent Red Cell Distribution Width 18.1 % Platelet Count 285 TH/MM3 Mean Platelet Volume 7.8 FL Assessment and Plan Problem List: (1) Atrial fibrillation, new onset (2) Aortic stenosis (3) Hypertension (4) Hyperlipidemia (5) Depression (6) CAD (coronary artery disease) (7) Chest pain (8) Cardiomyopathy Assessment and Plan 1.) CAD - no chest pain x 4 days, s/p pci bms mid lad, small diagonal vessel jailed but patent, continue dapt as plt>50; chest pain resolved, elevated troponin due to jailed 90% ostial small dx vessel and esrd, do not think this is a life threatening stenosis or that requires admission, o/w patient is completely revascularized 2.) PAF - in nsr, assymptomatic, eliquis held d/t thrombocytopenia 3.) PEA - suspect d/t apnea from fentanyl and/or versed, trop elevated due to pea and esrd, trending down pci; patient is hospice, do not rec recurrent cath due to high risk d/t thrombocytopenia, pea from conscience sedation from fentanyl/versed and inability to access diagonal vessel d/t vessel tortuosity and 90 degreee angle off lad; rec palliative care consult, prn ntg 4.) Ok to dc from cv standpoint, f/u with me hellen; rec hospice, patient undecided 6.) thrombocytopenia - improved, = 129k today 6.) Stridor - possibly related to narcotics, known allergy to dilaudid, mso4, pea/apnea with fentanyl, had stridor with percocet, rec dc percocet 7.) Anemia - hgb improved 8.) Ambulate, scd's, pt consult d/w nurse Problem Qualifiers (1) Hypertension: Qualified Code: I10 - Essential hypertension (2) CAD (coronary artery disease): Qualified Code: I25.10 - Coronary artery disease due to calcified coronary lesion (3) Chest pain: Qualified Code: R07.2 - Precordial pain Zohiab Valentin MD May 25, 2016 09:25
[2016-05-25] MEDS ORDERED: BENZOCAINE-MENTHOL (SUGAR FREE) 15 MG-3.6 MG LOZENGE BUCCAL PRN (14:00)
[2016-05-25] MEDS: RESP: ALBUTEROL 2.5 MG/3 ML NEB (PRN) NEB ×2 (15:14→22:40)
[2016-05-25] MEDS: ALPRAZolam 0.25 MG TAB PO PRN ×2 (15:30→23:30)
[2016-05-25] MEDS ORDERED: MEGE40SU PO (15:33)
[2016-05-25] MEDS: traMADol HCL 50 MG TAB PO PRN (16:09)
--- NOTE | 2016-05-25 16:24 | HHI.PR ---
Subjective Remarks Hgb shows stability. She complains of worsening left throat pain and respiratory distress. Oxygen saturations are 100% and no wheezing was present on exam. She has a past history of anxiety. Objective Vital Signs Date Time Temp Pulse Resp B/P Pulse Ox O2 Delivery O2 Flow Rate FiO2 05/25/16 12:00 98.4 64 16 106/58 99 05/25/16 08:10 95 Nasal Cannula 3.00 05/25/16 08:00 96.5 79 16 129/66 95 05/25/16 05:04 17 05/25/16 04:13 Nasal Cannula 3.00 21 05/25/16 04:00 97.9 75 16 122/58 100 05/25/16 00:45 98.0 73 16 96/51 99 05/24/16 22:19 18 05/24/16 21:20 Nasal Cannula 3.00 21 05/24/16 20:02 83 05/24/16 20:00 98.2 76 17 116/58 100 I/O 05/24/16 05/24/16 05/24/16 05/25/16 05/25/16 05/25/16 07:00 15:00 23:00 07:00 15:00 23:00 Intake Total 240 ml 240 ml 300 ml Output Total 4000 ml Balance -4000 ml 240 ml 240 ml 300 ml Intake Oral 240 ml 240 ml 300 ml Hemodialysis 4000 ml # Voids 2 1 # Bowel Movements 1 0 Result Diagram: 05/25/16 0820 05/23/16 0823 Objective Remarks GENERAL: NAD, A&Ox3 SKIN: Warm and dry. HEAD: Normocephalic. EYES: No scleral icterus. No injection or drainage. NECK: Supple, trachea midline. No JVD or lymphadenopathy. CARDIOVASCULAR: Regular rate and rhythm without murmurs, gallops, or rubs. RESPIRATORY: Breath sounds equal bilaterally. No accessory muscle use. GASTROINTESTINAL: Abdomen soft, non-tender, nondistended. MUSCULOSKELETAL: No cyanosis, or edema. BACK: Nontender without obvious deformity. No CVA tenderness. THROAT: No signs of candidiasis or erythema/drainage to indicate a bacterial infection Medications and IVs Administered Medications Medications (Trade) Dose Ordered Sig/Thierry Route PRN Reason Start Time Stop Time Status Last Admin Dose Admin Alprazolam (Xanax) 0.25 mg Q8H PRN PO ANXIETY 05/09/16 17:15 05/25/16 15:30 Carvedilol (Coreg) 12.5 mg Q12HR PO 05/09/16 21:00 05/25/16 09:04 Docusate Sodium (Colace) 100 mg BID PO 05/09/16 21:00 05/25/16 09:04 Sevelamer Carbonate (Renvela) 800 mg TID PO 05/09/16 18:00 05/25/16 12:52 Acetaminophen (Tylenol) 650 mg Q4H PRN PO TEMP > 100.4 05/09/16 17:30 05/14/16 01:11 Zolpidem Tartrate (Ambien) 5 mg HS PRN PO INSOMNIA 05/09/16 17:30 05/20/16 20:37 Megestrol Acetate (Megace Liq) 800 mg DAILY PO 05/10/16 09:00 05/25/16 09:04 Amlodipine Besylate (Norvasc) 5 mg DAILY PO 05/14/16 09:00 05/25/16 09:04 Tramadol HCl (Ultram) 50 mg Q12H PRN PO Pain 05/14/16 10:30 05/24/16 21:19 Insulin Aspart (NovoLOG SUPPLEMENTAL SCALE) 1 Q6H SQ 05/17/16 06:00 05/25/16 12:51 Nitroglycerin (Nitrostat Sl) 0.4 mg Q5M PRN SL CHEST PAIN 05/17/16 15:00 05/20/16 04:08 Nitroglycerin (Nitroglycerin 2% Oint) 2 inch Q6H TOPICAL 05/17/16 16:00 05/25/16 09:04 Albumin Human (Albumin 25% Inj) 25 gm UNSCH PRN IV WITH DIALYSIS 05/19/16 10:15 05/24/16 10:14 Acetaminophen (Tylenol) 650 mg UNSCH PRN PO for headach, pain, temp > 101F 05/19/16 10:15 05/25/16 04:04 Epoetin Kailash (Epogen Inj) 10,000 units UNSCH PRN IV WITH DIALYSIS 05/19/16 10:15 05/24/16 10:11 Dexamethasone Sodium Phosphate (Decadron Inj) 4 mg Q6H IV PUSH 05/20/16 17:00 05/25/16 12:52 Aspirin (Ecotrin Ec) 81 mg DAILY PO 05/23/16 09:00 05/25/16 09:04 Clopidogrel Bisulfate (Plavix) 75 mg DAILY PO 05/23/16 09:00 05/25/16 09:04 Sodium Chloride (NS Flush) 2 ml BID .XX 05/22/16 21:00 05/25/16 09:04 Benzocaine/Menthol (Cepacol Extra April (Sugar Free)) 1 lozenge Q2HR PRN BUCCAL SORE THROAT 05/25/16 14:00 05/25/16 14:07 A/P Problem List: (1) Hyperkalemia ICD Code: E87.5 Assessment & Plan: Resovled Follow potassuim levels (2) Weakness ICD Code: R53.1 Assessment & Plan: Improving Continue activity as tolerated PT Follow leukocytosis (3) Anemia ICD Code: D64.9 Assessment & Plan: Stable Improved compared to admit Follow H/H Assessment and Plan Sore throat may be viral, her respiratory distress may be anxiety. She does not feel safe for discharge, so she will be monitored overnight. Discharge Planning Potential for discharge tomorrow if Hgb remains stable. Yehuda Ware MD May 25, 2016 16:24
[2016-05-25] MEDS ORDERED: LORazepam 2 MG/ML VIAL IM ONE (16:45)
[2016-05-26] VITALS (13 sets, daily range): BP systolic 124–203; BP diastolic 60–95; PULSE 67–90; RESP 14–22; TEMP 96–99.9; O2SAT 93–100
[2016-05-26] MEDS: DEXAMETHASONE SOD PHOS 4 MG/ML VIAL IV PUSH SCH (04:05)
[2016-05-26] MEDS: NITROGLYCERIN 2% OINT 1 GM PACKET TOPICAL SCH ×4 (04:05→21:57)
[2016-05-26] MEDS ORDERED: LORazepam 2 MG/ML VIAL IV PUSH ONE (04:15)
[2016-05-26] MEDS: INSULIN ASPART SUPPLEMENTAL SCALE SQ SCH ×3 (06:00→18:00)
[2016-05-26 07:57] LABS: HEMATOCRIT 33.7 % (35.0-46.0); MEAN CELL VOLUME 91.4 FL (80.0-100.0); MEAN CORPUSCULAR HEMOGLOBIN 30.7 PG (27.0-34.0); MEAN CORPUSCULAR HGB CONC 33.6 % (32.0-36.0); PLATELET COUNT 354 TH/MM3 (150-450); RED BLOOD COUNT 3.69 MIL/MM3 (4.00-5.30); RED CELL DISTRIBUTION WIDTH 18.4 % (11.6-17.2); REVIEW FLAG FINAL; WHITE BLOOD COUNT 32.8 TH/MM3 (4.0-11.0)
[2016-05-26] MEDS: RESP: ALBUTEROL 2.5 MG/3 ML NEB (PRN) NEB ×3 (08:26→14:23)
[2016-05-26 08:45] LABS: BICARBONATE 28.4 MEQ/L (21.0-32.0)
[2016-05-26 08:48] LABS: POTASSIUM 6.5 MEQ/L (3.5-5.1)
[2016-05-26] MEDS: SEVELAMER CARBONATE 800 MG TAB PO SCH ×3 (09:00→21:36)
[2016-05-26] MEDS ORDERED: predniSONE 5 MG TAB PO SCH (10:00)
--- NOTE | 2016-05-26 14:23 | HHI.NPPN ---
Subjective General Problems: Anemia Renal Failure: Chronic, End Stage Renal Disease Interval History she is not doing well. Has developed stridor. Patient underwent dialysis today, 3 liters removed. Review of Systems General Constitutional: Fatigue Ears, Nose, & Throat Ears, Nose & Throat: Sore Throat, Hoarse Cardiovascular Cardiac: Chest Pain Objective Data Data 05/25/16 05/26/16 19:00 07:00 Intake Total 300 ml 360 ml Balance 300 ml 360 ml Intake Oral 300 ml 360 ml # Voids 1 # Bowel Movements 0 Vital Signs Date Time Temp Pulse Resp B/P Pulse Ox O2 Delivery O2 Flow Rate FiO2 05/26/16 09:00 100 Nasal Cannula 3.00 05/26/16 08:27 99 Nasal Cannula 3.00 05/26/16 04:00 98.7 67 15 124/68 98 05/26/16 01:35 20 05/26/16 00:00 98.3 72 16 131/60 100 05/25/16 22:56 100 Nasal Cannula 3.00 05/25/16 21:00 100 Nasal Cannula 3.00 05/25/16 20:00 98.6 76 16 105/57 100 05/25/16 18:00 100 Nasal Cannula 3.00 05/25/16 16:00 99.3 73 28 139/68 95 -: 05/26/16 0656 05/26/16 0656 Physical Exam General Appearance: Well Developed, No Acute Distress, Comfortable, Malnourished Eyes Eye Exam: Pupils Equal Throat Throat Exam: Oral Mucosa [place] & Moist Throat Remarks she has stridor. Neck Neck Exam: Neck Supple Pulmonary Resp Exam: Breath Sounds Equal, No Distress, Rhonchi, Labored Resp Remarks dyspneic Cardiology CV Exam: Regular, Normal Sinus Rhythm, Good Perfusion, Dyspnea on Exertion Gastrointestinal/Abdomen GI Exam: Soft, Non-Tender, Bowel Sounds Present Musculoskeletal MS Exam: Joints Intact, Normal Tone Integumentary Skin Exam: Clear, Warm, Dry, Intact Extremeties Extremities Exam: No Edema, Pedal Pulses Palpable Neurologic Neuro Exam: Alert, Awake, Oriented, Speech Clear, Moving All Extremities Assessment/Plan Discussed Condition With: Patient Assessment Summary: Anemia of CKD, CHF, Hypertension, End Stage Renal Disease Electrolyte Assessment: Hyperkalemia Problem List: (1) ESRD (end stage renal disease) Plan: HD to be continued MWF. avoid IVF, gadolinium (2) CAD (coronary artery disease) Plan: adjust UF with dialysis as tolerated/required cardiology following sp cath with stent to LAD, EF 45% no further PCI per Dr. Valentin she was evaluated by palliative , declined hospice (3) Anemia Plan: Hemoglobin has improved. Continue Epogen. (4) Atrial fibrillation Plan: Rate controlled follow with cardiology (5) Thrombocytopenia Plan: acute, improving, due to Aggrastat antiplatelets have been resumed (6) Stridor Plan: Etiology is unclear, allergic reaction? One dose of Solumedrol. Stop all non essential medications. Plan Patient is doing poorly. She is DNR. Discussed with RN. Solumedrol as ordered. Poor prognosis. Problem Qualifiers (1) CAD (coronary artery disease): Qualified Code: I25.10 - Coronary artery disease due to calcified coronary lesion (2) Anemia: Roland Miramontes MD May 26, 2016 14:23
[2016-05-26] MEDS: MEGESTROL ACETATE SUSP 400 MG/10 ML CUP PO SCH (14:46)
[2016-05-26] MEDS: amLODIPine BESYLATE 5 MG TAB PO SCH (14:46)
[2016-05-26] MEDS: DOCUSATE SODIUM 100 MG CAP PO SCH ×2 (14:46→21:59)
[2016-05-26] MEDS: CLOPIDOGREL 75 MG TAB PO SCH (14:47)
[2016-05-26] MEDS: busPIRone HCL 5 MG TAB PO SCH (14:47)
[2016-05-26] MEDS: CARVEDILOL 12.5 MG TAB PO SCH ×2 (14:47→21:59)
[2016-05-26] MEDS: ASPIRIN EC 81 MG TABEC PO SCH (14:47)
[2016-05-26] MEDS: SODIUM CHLORIDE 0.9% FLUSH 10 ML FLUSH SCH ×2 (14:57→21:01)
[2016-05-26] MEDS ORDERED: methylPREDNISolone SOD SUCC 125 MG/2 ML VIAL IV PUSH ONE ×2 (15:00)
[2016-05-26] MEDS ORDERED: diphenhydrAMINE HCL 50 MG/ML VIAL IV PUSH ONE (15:00)
[2016-05-26] MEDS ORDERED: RESP: RACEPINEPHRINE 2.25% 0.5 ML NEB NEB ONE (15:00)
[2016-05-26] MEDS ORDERED: EPINEPHrine HCL (1:1000) 1 MG/ML VIAL IM ONE (15:00)
--- NOTE | 2016-05-26 15:13 | HHI.PR ---
Subjective Remarks Mrs. Meehan is having respiratory distress today, without hypoxia. She was at dialysis this morning, but this afternoon she is having a sensation her throat ' shutting'. She is showing no signs of inflammation or edema at the face or visualized mouth. Stidor is present. Etiology may be anaphylaxis. Of note she is DNR and intubation would not be wanted. No hypoxia is present at this point. Objective Vital Signs Date Time Temp Pulse Resp B/P Pulse Ox O2 Delivery O2 Flow Rate FiO2 05/26/16 09:35 85 14 161/77 93 05/26/16 09:25 83 14 203/95 100 05/26/16 09:00 100 Nasal Cannula 3.00 05/26/16 08:27 99 Nasal Cannula 3.00 05/26/16 08:00 97.6 82 20 173/83 100 05/26/16 04:00 98.7 67 15 124/68 98 05/26/16 01:35 20 05/26/16 00:00 98.3 72 16 131/60 100 05/25/16 22:56 100 Nasal Cannula 3.00 05/25/16 21:00 100 Nasal Cannula 3.00 05/25/16 20:00 98.6 76 16 105/57 100 05/25/16 18:00 100 Nasal Cannula 3.00 05/25/16 16:00 99.3 73 28 139/68 95 I/O 05/25/16 05/25/16 05/25/16 05/26/16 05/26/16 05/26/16 07:00 15:00 23:00 07:00 15:00 23:00 Intake Total 240 ml 300 ml 240 ml 120 ml Output Total 3000 ml Balance 240 ml 300 ml 240 ml 120 ml -3000 ml Intake Oral 240 ml 300 ml 240 ml 120 ml Hemodialysis 3000 ml # Voids 1 # Bowel Movements 0 Result Diagram: 05/26/16 0656 05/26/16 0656 Objective Remarks GENERAL: Distress with anxiety and moderate respiratory distress. A&Ox1. SKIN: Warm and dry. HEAD: Normocephalic. EYES: No scleral icterus. No injection or drainage. NECK: Supple, trachea midline. No JVD or lymphadenopathy. No tenderness. THROAT: Darkened area at left pharynx (at tonsillar cavity). No visualized obstruction, no erythema, no purulence. CARDIOVASCULAR: Regular rate and rhythm without murmurs, gallops, or rubs. RESPIRATORY: Breath sounds equal bilaterally and clear. Mild accessory muscle use. Stridor at level of larynx. GASTROINTESTINAL: Abdomen soft, non-tender, nondistended. MUSCULOSKELETAL: No cyanosis, or edema. BACK: Nontender without obvious deformity. No CVA tenderness. THROAT: No signs of candidiasis or erythema/drainage to indicate a bacterial infection Medications and IVs Administered Medications Medications (Trade) Dose Ordered Sig/Thierry Route PRN Reason Start Time Stop Time Status Last Admin Dose Admin Alprazolam (Xanax) 0.25 mg Q8H PRN PO ANXIETY 05/09/16 17:15 Hold 05/25/16 23:30 Carvedilol (Coreg) 12.5 mg Q12HR PO 05/09/16 21:00 05/26/16 14:47 Docusate Sodium (Colace) 100 mg BID PO 05/09/16 21:00 05/26/16 14:46 Sevelamer Carbonate (Renvela) 800 mg TID PO 05/09/16 18:00 05/25/16 16:23 Acetaminophen (Tylenol) 650 mg Q4H PRN PO TEMP > 100.4 05/09/16 17:30 05/14/16 01:11 Megestrol Acetate (Megace Liq) 800 mg DAILY PO 05/10/16 09:00 05/26/16 14:46 Amlodipine Besylate (Norvasc) 5 mg DAILY PO 05/14/16 09:00 05/26/16 14:46 Insulin Aspart (NovoLOG SUPPLEMENTAL SCALE) 1 Q6H SQ 05/17/16 06:00 05/25/16 12:51 Nitroglycerin (Nitrostat Sl) 0.4 mg Q5M PRN SL CHEST PAIN 05/17/16 15:00 05/20/16 04:08 Nitroglycerin (Nitroglycerin 2% Oint) 2 inch Q6H TOPICAL 05/17/16 16:00 05/26/16 04:05 Albumin Human (Albumin 25% Inj) 25 gm UNSCH PRN IV WITH DIALYSIS 05/19/16 10:15 05/24/16 10:14 Acetaminophen (Tylenol) 650 mg UNSCH PRN PO for headach, pain, temp > 101F 05/19/16 10:15 05/25/16 19:42 Epoetin Kailash (Epogen Inj) 10,000 units UNSCH PRN IV WITH DIALYSIS 05/19/16 10:15 05/24/16 10:11 Aspirin (Ecotrin Ec) 81 mg DAILY PO 05/23/16 09:00 05/26/16 14:47 Clopidogrel Bisulfate (Plavix) 75 mg DAILY PO 05/23/16 09:00 05/26/16 14:47 Sodium Chloride (NS Flush) 2 ml BID .XX 05/22/16 21:00 05/25/16 20:39 Benzocaine/Menthol (Cepacol Extra April (Sugar Free)) 1 lozenge Q2HR PRN BUCCAL SORE THROAT 05/25/16 14:00 05/25/16 14:07 Buspirone HCl (Buspar) 5 mg DAILY PO 05/26/16 09:00 05/26/16 14:47 A/P Problem List: (1) Hyperkalemia ICD Code: E87.5 Assessment & Plan: Resovled Follow potassuim levels (2) Weakness ICD Code: R53.1 Assessment & Plan: Improving Continue activity as tolerated PT Follow leukocytosis (3) Anemia ICD Code: D64.9 Assessment & Plan: Stable Improved compared to admit Follow H/H (4) Stridor ICD Code: R06.1 Assessment & Plan: Possible anaphylaxis or viral etiology Bolus of Solumedrol provided Racemic Epinephrine nebulized treatment ordered IM Epinephrine IV Benadryl Follow on pulse ox Monitor for improvement Patient is DNR status No evidence of bacterial etiology (5) Leukocytosis ICD Code: D72.829 Assessment & Plan: Significant elevation compared to previous day May be reactive, but given her acute respiratory change caution is warranted CBC with Differential ordered to evaluate for an acute neutrophil shift Rocephin added to Gentamicin therapy Follow CBC Yehuda Ware MD May 26, 2016 3:13 pm
--- NOTE | 2016-05-26 17:19 | HHI.CCPN ---
Subjective Remarks/Hospital Course This is an 85yF with ESRD, COPD, CHF history who presented to the hospital with hyperglycemia and NSTEMI. She was taken to the [facility] today for revascularization. She had a BMS placed to the distal LAD with small unrevascularizable diag vessels. She received versed 1mg iv and fentanyl 25mcg iv. At the conclusion of the case, she became unresponsive, hypoxic, and then sustained a PEA arrest requiring ACLS. Anesthesia came and intubated the patient. I was called by Dr. Valentin after ROSC was obtained. He states he felt that this was a respiratory arrest secondary to sedation. I immediately went to evalute the patient. She was still in the [facility]. she was awake, non -focal, following commands, not on sedation. I had a discussion with Dr. Valentin. given that it was a very tight LAD lesion and difficult to PCI, we agreed to transfer the patient to CVICU and obtain STAT TTE to rule out tamponade or coronary rupture as a cause for her PEA arrest. This was done at bedside and was negative for acute life-threatening disease. At this point, because the patient met criteria, she was extubated to nasal cannula. Her arterial sheath was pulled. Critical Care medicine is consulted to evaluate and manage her post-cardiac arrest care. SUBJ 05/17: Patient extubated yesterday. Overnight had intermittent stridor placed on Decadron and when necessary racemic epinephrine. Good response to racemic epinephrine. On my exam there was no stridor patient is alert oriented. CBC showed platelet count 5000. Patient is on Aggrastat. Doubt accuracy of the platelet count-it was 276,000 yesterday. Stat repeat labs sent [facility] [place] RECONSULT NOTE 05/26/16: Critical care consulted by primary service as the patient having intermittent stridor. Hospitalist documentation indicated that she had a sensation of throat shutting down. Patient is ALT CODE, but intubation is permitted. I evaluated the patient in room 718. Patient clearly has inspiratory stridor, with periods of hypopnea. She has received Solu-Medrol and racemic epinephrine. On exam she complains about tenderness to the left lower neck, there is no palpable mass. I will transfer her emergently to the ICU as the patient may need intubation. I've discussed with the rn discharge for [facility] ([facility]). CT neck with contrast ordered to evaluate neck mass or inflammation/ swelling. It was also noted that the patient's white count increased from 13.8 to 32.8, CXR shows new LLL infiltrate Objective Vital Signs Date Time Temp Pulse Resp B/P Pulse Ox O2 Delivery O2 Flow Rate FiO2 05/26/16 14:15 97.9 82 14 129/85 99 05/26/16 09:00 Nasal Cannula 3.00 05/25/16 04:13 21 Intake and Output 05/25/16 05/25/16 05/26/16 08:00 16:00 00:00 Intake Total 240 ml 300 ml 240 ml Balance 240 ml 300 ml 240 ml Result Diagram: 05/26/16 0656 05/26/16 0656 Imaging Last Impressions Aorta CTA 05/10/16 0000 Signed Impressions: Service Date/Time: Tuesday, May 10, 2016 15:13 - CONCLUSION: 1. There is no evidence of aortic dissection. The widening of the mediastinum seen on the chest x-ray appears to represent a combination of pleural fluid and atelectatic lung along the descending thoracic aorta. 2. There are COPD changes within the pulmonary parenchyma. 3. There are small bilateral effusions. 4. The abdominal aorta and iliac vessels are intact. Yehuda Hanna MD Chest X-Ray 05/09/16 1456 Signed Impressions: Service Date/Time: Monday, May 09, 2016 14:58 - CONCLUSION: 1. Possible superior mediastinal mass versus aneurysm. The superior mediastinum appears somewhat widened. 2. COPD changes. 3. Cardiomegaly. Yehuda Hanna MD Objective Remarks GENERAL: Elderly female lying in bed, audible stridor with moderate SKIN: Warm and dry. HEAD: Atraumatic. Normocephalic. EYES: Pupils equal and round. No scleral icterus. No injection or drainage. ENT: No nasal bleeding or discharge. NECK: Trachea midline. No JVD. Inspiratory stridor. Left lower neck is tender to palpation CARDIOVASCULAR: Regular rate and rhythm. systolic murmur best heard in the apex RESPIRATORY: Positive accessory muscle use. Conducted inspiratory stridor. Breath sounds equal bilaterally. GASTROINTESTINAL: Abdomen soft, non-tender, nondistended. MUSCULOSKELETAL: Extremities without clubbing, cyanosis, or edema. NEUROLOGICAL: She is intermittently altered, waxing and waning level of consciousness. Motor grossly within normal limits. Procedures Cardiac Catheterization on 05/16/16 - as per report bare metal stent placed to the mid LAD. Intubation and mechanical ventilation due to PEA arrest after Cardiac Catheterization. A/P Assessment and Plan Assessment: 85yF with ESRD, DM, with NSTEMI s/p PCI with BMS to LAD and andrade- procedural PEA arrest. This was likely secondary to a respiratory arrest from sedation. Successfully extubated the patient 05/16. Now with stridor and progressively altered mental status. Critically ill, may need intubation Active Problems: Upper airway obstruction/stridor Altered mental status LLL healthcare associated pneumonia Severe sepsis s/p PEA Arrest NSTEMI s/p PCI with BMS to LAD Acute thrombocytopenia secondary to Aggrastat, now resolved Post extubation stridor Anemia secondary to ESRD Active coronary ischemia CHF, diastolic type Elevated LVEDP Plan: NEURO: Metabolic encephalopathy -Altered mentation seems to be metabolic metabolic encephalopathy -Check ABG, check CT of the head stat RESP: Upper airway obstruction/stridor LLL pneumonia -BiPAP PRN. -Received Solu-Medrol and racemic epinephrine 1 -Start Scheduled Decadron 6 mg IV q6, Racemic epinephrine PRN. Patient may need intubation if stridor does not improve -CT of the neck without contrast as patient has stridor and complaints of left lower neck tenderness -Broad-spectrum antibiotics as below CV: s/p PEA Arrest NSTEMI s/p PCI with BMS to LAD -Continue aspirin and Plavix, nitroglycerin when necessary -Cardiology Dr. Valentin GI: -Nothing by mouth except meds -IV Protonix : ESRD on hemodialysis -Nephrology Dr. Miramontes. s/p HD today ID: LLL healthcare associated pneumonia Severe sepsis -Check sputum blood and urine culture, send for C. difficile -Start cefepime and Flagyl also give dose of vancomycin HEME: -Previous acute thrombocytopenia has resolved, most likely secondary to Aggrastat PROPH: -Bilateral lower extremity SCDs. IV Protonix, subcutaneous heparin LINES: Utilize peripheral IVs, central line if needed CC time 35 min Nallely Lubin MD May 26, 2016 17:19
--- NOTE | 2016-05-26 17:29 | RADRPT ---
EXAM DATE/TIME: 05/26/2016 16:41 [facility] COMPARISON: CTA THORACIC ABDOMINAL AORTA W 3D RECON, May 10, 2016, 15:13. CHEST SINGLE AP, May 18, 2016, 17: 02. INDICATIONS : Cough, chest congestion starting today MEDICAL HISTORY : Cardiovascular disease. Hypertension. Renal failure, chronic. SURGICAL HISTORY : Appendectomy. ENCOUNTER: Initial ACUITY: 1 day PAIN SCORE: Non-responsive. LOCATION: Bilateral chest FINDINGS: Cardiomegaly has not changed. Left lung base consolidation is present and right lung appears grossly intact. Large hiatal hernia is seen. Tiny bilateral pleural effusions may be present. CONCLUSION: Left lung base consolidation and possible slight bilateral pleural effusion in addition to a large hi atal hernia. Katie Perkins MD on May 26, 2016 at 17:26 Board Certified Radiologist. This report was verified electronically.
[2016-05-26] MEDS ORDERED: RESP: RACEPINEPHRINE 2.25% 0.5 ML NEB NEB PRN (17:30)
[2016-05-26 17:33] LABS: BLOOD GAS BASE EXCESS 6.2 mmol/L (-2-2); BLOOD GAS CARBOXYHEMOGLOBIN 1.6 % (0-4); BLOOD GAS HCO3 30 mmol/L (22-26); BLOOD GAS METHEMOGLOBIN 1.1 % (0-2); BLOOD GAS O2 HGB SATURATION 97 % (90-100); BLOOD GAS OXYGEN CONTENT 16.7 Vol % (12.0-20.0); BLOOD GAS PCO2 43 mmHg (38-42); BLOOD GAS PO2 142 mmHg (61-120); BLOOD GAS TOTAL HGB 12.1 G/DL (12.0-16.0); CRITICAL VALUE NO; DRAW SITE RT RADIAL; LITER FLOW 4 L/M; NUMBER OF ARTERIAL PUNCTURES 1; OXYGEN DEVICE NASAL CANNULA; STAT NO; TEMP CORR TO 98.6; ULNAR PULSE PRESENT
[2016-05-26] MEDS: RESP: ALBUTEROL 2.5 MG/IPRATROPIUM 0.5 MG NEB (SCH) NEB ×2 (17:45→20:23)
[2016-05-26 17:58] LABS: AUTOMATED NEUTROPHIL # 33.5 TH/MM3 (1.8-7.7); HEMATOCRIT 30.9 % (35.0-46.0); LYMPH % 1.3 % (9.0-44.0); LYMPHOCYTE # 0.5 TH/MM3 (1.0-4.8); MEAN CELL VOLUME 91.9 FL (80.0-100.0); MEAN CORPUSCULAR HEMOGLOBIN 30.9 PG (27.0-34.0); MEAN CORPUSCULAR HGB CONC 33.6 % (32.0-36.0); MONO % 5.2 % (0.0-8.0); NEUT % 93.5 % (16.0-70.0); PLATELET COUNT 374 TH/MM3 (150-450); RED BLOOD COUNT 3.36 MIL/MM3 (4.00-5.30); RED CELL DISTRIBUTION WIDTH 17.8 % (11.6-17.2); WHITE BLOOD COUNT 35.9 TH/MM3 (4.0-11.0)
[2016-05-26 17:59] LABS: HEMO FLAGS AUTO DIFF
[2016-05-26] MEDS ORDERED: VANCOMYCIN INJ 1,000 MG in SODIUM CHLOR 0.9% 250 ML INJ 250 ML IV ONE (18:00)
[2016-05-26] MEDS: DEXAMETHASONE SOD PHOS 20 MG/5 ML VIAL IV PUSH SCH (18:00)
--- NOTE | 2016-05-26 18:14 | RADRPT ---
EXAM DATE/TIME: 05/26/2016 18:02 [facility] COMPARISON: CT BRAIN W/O CONTRAST, May 19, 2016, 14:18. INDICATIONS : Altered mental status. RADIATION DOSE: 46.17 CTDIvol (mGy) MEDICAL HISTORY : Hypertension. Cerebrovascular disease. Renal failure, chronic. SURGICAL HISTORY : None. ENCOUNTER: Initial ACUITY: 1 day PAIN SCALE: 0/10 LOCATION: cranial TECHNIQUE: Multiple contiguous axial images were obtained of the head. Using automated exposure control and adj ustment of the mA and/or kV according to patient size, radiation dose was kept as low as reasonably a chievable to obtain optimal diagnostic quality images. FINDINGS: There is marked central and cortical atrophy with dilatation of ventricular and sulcal spaces. Scatte red areas of low attenuation seen within the periventricular white matter There is no parenchymal he morrhage, acute infarction or mass lesion identified. There are no extra-axial fluid collections linwood reciated. The posterior fossa is unremarkable with midline fourth ventricle. The portion of the orb its and paranasal sinuses visualized are unremarkable. CONCLUSION: 1. Cerebral atrophy and chronic ischemic small vessel vasculopathy. Altaf Stubbs MD on May 26, 2016 at 18:10 Board Certified Radiologist. This report was verified electronically.
[2016-05-26 18:18] LABS: ALKALINE PHOSPHATASE 77 U/L (45-117); ALT (GPT) 15 U/L (10-53); ANION GAP 10 MEQ/L (5-15); AST (GOT) 10 U/L (15-37); BICARBONATE 32.2 MEQ/L (21.0-32.0); BLOOD UREA NITROGEN 38 MG/DL (7-18); CHLORIDE 92 MEQ/L (98-107); GLOMERULAR FILTRATION RATE 14 ML/MIN (>89); POTASSIUM 4.8 MEQ/L (3.5-5.1); SODIUM (NA) 134 MEQ/L (136-145); TOTAL BILIRUBIN ADULT 0.5 MG/DL (0.2-1.0)
[2016-05-26] MEDS ORDERED: diphenhydrAMINE HCL 50 MG/ML VIAL IV PUSH SCH (18:30)
--- NOTE | 2016-05-26 18:30 | RADRPT ---
EXAM DATE/TIME: 05/26/2016 18:06 This report includes an Addendum and supersedes previous reports for this exam. [facility] COMPARISON: No previous studies available for comparison. INDICATIONS : Wheezing and raspy breathing. RADIATION DOSE: 21.84 CTDIvol (mGy) MEDICAL HISTORY : Hypertension. Cerebrovascular disease. SURGICAL HISTORY : None. ENCOUNTER: Subsequent ACUITY: 1 day PAIN SCORE: 2/10 LOCATION: neck TECHNIQUE: Volumetric scanning of the neck was performed. Using automated exposure control and adjustment of th e mA and/or kV according to patient size, radiation dose was kept as low as reasonably achievable to obtain optimal diagnostic quality images. FINDINGS: Large mass at the base of the left tongue in the region of the left piriform sinus measuring approxim ately 2.5 x 2.4 cm. This does displace the trachea to the right. There is extensive soft tissue thick ening posteriorly measuring up to 2.3 cm. There is narrowing of the airway at the level of the cords which may be transient. There is thickening of the vocal cords bilaterally. CONCLUSION: Large mass at the base of the left tongue extending inferiorly causing tracheal shift to the right an d probable narrowing. This is most consistent with malignancy. Altaf Stubbs MD on May 26, 2016 at 18:24 Board Certified Radiologist. This report was verified electronically. ADDENDUM: Also in the differential could represent a left-sided peritonsillar abscess with infection extending inferiorly. Lack of intravenous contrast limits evaluation. Altaf Stubbs MD on May 26, 2016 at 20:11 Board Certified Radiologist. This report was verified electronically.
[2016-05-26] MEDS ORDERED: CHLORHEXIDINE GLUCONATE 2 % 1 PACK (2 CLOTHS)(extra cloths) TOPICAL PRN (19:15)
[2016-05-26 19:16] LABS: MYELOCYTES 1 % (0-0); NEUTROPHIL # MANUAL DIFF 35.2 TH/MM3 (1.8-7.7); POLYS (SEG NEUTROPHILS) 97 % (16-70); WBC DIFF SAMPLE 100
[2016-05-26 19:18] LABS: ACANTHOCYTES OCC (NORMAL); PLATELET ESTIMATE SMEAR NORMAL (NORMAL); PLATELET MORPHOLOGY NORMAL (NORMAL); SCAN/DIFF FINAL DIFF MANUAL
[2016-05-26] MEDS: CEFEPIME INJ 1,000 MG in SODIUM CHLORIDE 0.9% INJ 100 ML IV SCH (20:28)
--- NOTE | 2016-05-26 20:52 | PD.CONS ---
History of Present Illness Service ENT Consult Requested By Dr Lubin Reason for Consult Left neck inflammatory mass, stridor. Primary Care Physician Ashlyn Mao MD Diagnoses: History of Present Illness 85 year old female, ESRD, COPD, CHF in C s/p cardiac procedure. Had been intubated after procedure, thought to be secondary to sedation. Improved and was extubated. Earlier this evening developed airway obstruction and stridor. Showed WBC to 35 thousand. Was started on Decadron and IV antibiotics. CT of the neck shows a mass of the left pharyngeal wall and sargent of tongue. 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 Physical Exam Vital Signs Vital Signs Date Time Temp Pulse Resp B/P Pulse Ox O2 Delivery O2 Flow Rate FiO2 05/26/16 18:25 94 100 05/26/16 17:35 98 Nasal Cannula 4.00 05/26/16 16:00 96.0 90 16 165/70 99 05/26/16 14:15 97.9 82 14 129/85 99 05/26/16 09:35 85 14 161/77 93 05/26/16 09:25 83 14 203/95 100 05/26/16 09:00 100 Nasal Cannula 3.00 05/26/16 08:27 99 Nasal Cannula 3.00 05/26/16 08:00 97.6 82 20 173/83 100 05/26/16 04:00 98.7 67 15 124/68 98 05/26/16 01:35 20 05/26/16 00:00 98.3 72 16 131/60 100 05/25/16 22:56 100 Nasal Cannula 3.00 05/25/16 21:00 100 Nasal Cannula 3.00 Physical Exam GENERAL: This is a well-nourished, well-developed patient, in no apparent distress. SKIN: No rashes, ecchymoses or lesions. Cool and dry. HEAD: Atraumatic. Normocephalic. No temporal or scalp tenderness. EYES: Pupils equal round and reactive. Extraocular motions intact. No scleral icterus. No injection or drainage. ENT: Nose without bleeding, purulent drainage or septal hematoma. Throat without erythema, tonsillar hypertrophy or exudate. Uvula midline. Airway patent. NECK: Trachea midline. No JVD or lymphadenopathy. Supple, left tender, cannot palpate mass, no meningeal signs. FIBEROPTIC LARYNGOSCOPY: Left lateral pharyngeal edema, able to visualize airway , edema better than on CT. No stridor. Laboratory Laboratory Tests Test 05/26/16 05/26/16 05/26/16 06:56 17:18 17:25 White Blood Count 32.8 35.9 Red Blood Count 3.69 3.36 Hemoglobin 11.3 10.4 Hematocrit 33.7 30.9 Mean Corpuscular Volume 91.4 91.9 Mean Corpuscular Hemoglobin 30.7 30.9 Mean Corpuscular Hemoglobin 33.6 33.6 Concent Red Cell Distribution Width 18.4 17.8 Platelet Count 354 374 Mean Platelet Volume 8.1 7.5 Hematology Comments Sodium Level 130 134 Potassium Level 6.5 4.8 Chloride Level 91 92 Carbon Dioxide Level 28.4 32.2 Anion Gap 11 10 Blood Urea Nitrogen 63 38 Creatinine 5.02 3.76 Estimat Glomerular Filtration 10 14 Rate Random Glucose 98 103 Calcium Level 9.5 9.2 Neutrophils (%) (Auto) 93.5 Lymphocytes (%) (Auto) 1.3 Monocytes (%) (Auto) 5.2 Eosinophils (%) (Auto) 0.0 Basophils (%) (Auto) 0.0 Neutrophils # (Auto) 33.5 Lymphocytes # (Auto) 0.5 Monocytes # (Auto) 1.9 Eosinophils # (Auto) 0.0 Basophils # (Auto) 0.0 CBC Comment AUTO DIFF Differential Total Cells 100 Counted Neutrophils % (Manual) 97 Lymphocytes % 1 Monocytes % 1 Neutrophils # (Manual) 35.2 Myelocytes 1 Differential Comment FINAL DIFF MANUAL Platelet Estimate NORMAL Platelet Morphology Comment NORMAL Acanthocytes OCC Total Bilirubin 0.5 Aspartate Amino Transf 10 (AST/SGOT) Alanine Aminotransferase 15 (ALT/SGPT) Alkaline Phosphatase 77 Total Protein 6.6 Albumin 3.0 Blood Gas Puncture Site RT RADIAL Blood Gas Patient Temperature 98.6 Blood Gas HCO3 30 Blood Gas Base Excess 6.2 Blood Gas Oxygen Saturation 97 Arterial Blood pH 7.46 Arterial Blood Partial 43 Pressure CO2 Arterial Blood Partial 142 Pressure O2 Arterial Blood Oxygen Content 16.7 Arterial Blood 1.6 Carboxyhemoglobin Arterial Blood Methemoglobin 1.1 Blood Gas Hemoglobin 12.1 Oxygen Delivery Device NASAL CANNULA Blood Gas Liter Flow 4 Date/Time Procedure Status Source Growth 05/26/16 19:54 Aerobic Blood Culture Received Blood Peripheral Pending 05/26/16 19:54 Anaerobic Blood Culture Received Blood Peripheral Pending 05/26/16 18:40 Urine Culture Received Urine Catheterized Urine Pending Result Diagram: 05/26/16 1718 05/26/16 1718 Imaging Left lateral pharyngeal edema, below level of tonsils, to base of tongue. Retropharyngeal not edematous. Assessment and Plan Assessment and Plan Acute pharyngeal edema, sudden onset, consistent with inflammatory mass. Not consistent with retropharyngeal abscess. Low for tonsillar. Cannot localize any abscess at this point. Clear collection not seen on non-contrast CT. Patient has responded to Decadron and IV antibiotics. Would re-eval with contrast CT in next 24 to 48 hours. Will recheck nasal endo tomorrow morning. If clinical course alters may need intubation or surgical airway. Currently remains stable. Hector Martinez MD May 26, 2016 20:52
[2016-05-26] MEDS: DEXAMETHASONE SOD PHOS 4 MG/ML VIAL IV SCH (21:03)
[2016-05-26] MEDS: metroNIDAZOLE 500 MG INJ 100 ML IV SCH (21:36)
[2016-05-26] MEDS: PANTOPRAZOLE SODIUM 40 MG VIAL IV PUSH SCH (21:36)
[2016-05-26] MEDS: diphenhydrAMINE HCL 50 MG/ML VIAL IV PUSH SCH (21:58)
[2016-05-27] VITALS (12 sets, daily range): BP systolic 100–149; BP diastolic 60–78; PULSE 75–116; RESP 16–46; TEMP 98.8–99.6; O2SAT 93–100
[2016-05-27] MEDS: DEXAMETHASONE SOD PHOS 20 MG/5 ML VIAL IV PUSH SCH ×3 (00:29→11:02)
[2016-05-27] MEDS: diphenhydrAMINE HCL 50 MG/ML VIAL IV PUSH SCH ×4 (02:24→20:00)
[2016-05-27] MEDS: metroNIDAZOLE 500 MG INJ 100 ML IV SCH ×3 (02:24→18:00)
[2016-05-27] MEDS: DEXAMETHASONE SOD PHOS 4 MG/ML VIAL IV SCH ×4 (02:25→21:40)
[2016-05-27] MEDS: CHLORHEXIDINE GLUCONATE 2 % 1 PACK (2 CLOTHS)(taper/protocol) TOPICAL SCH (02:26)
[2016-05-27] MEDS: RESP: ALBUTEROL 2.5 MG/IPRATROPIUM 0.5 MG NEB (SCH) NEB ×5 (04:00→20:13)
[2016-05-27] MEDS: NITROGLYCERIN 2% OINT 1 GM PACKET TOPICAL SCH ×4 (04:02→21:43)
[2016-05-27] MEDS: CEFEPIME INJ 1,000 MG in SODIUM CHLORIDE 0.9% INJ 100 ML IV SCH ×2 (05:00→17:52)
[2016-05-27 05:21] LABS: AUTOMATED NEUTROPHIL # 36.4 TH/MM3 (1.8-7.7); BASOPHIL # 0.1 TH/MM3 (0-0.2); BASOPHIL % 0.2 % (0.0-2.0); HEMATOCRIT 32.9 % (35.0-46.0); LYMPH % 0.9 % (9.0-44.0); LYMPHOCYTE # 0.3 TH/MM3 (1.0-4.8); MEAN CORPUSCULAR HEMOGLOBIN 30.1 PG (27.0-34.0); MEAN CORPUSCULAR HGB CONC 32.3 % (32.0-36.0); MONO % 2.7 % (0.0-8.0); NEUT % 96.2 % (16.0-70.0); PLATELET COUNT 385 TH/MM3 (150-450); RED BLOOD COUNT 3.54 MIL/MM3 (4.00-5.30); WHITE BLOOD COUNT 37.8 TH/MM3 (4.0-11.0)
[2016-05-27 05:31] LABS: HEMO FLAGS AUTO DIFF
[2016-05-27 05:48] LABS: BICARBONATE 31.9 MEQ/L (21.0-32.0); POTASSIUM 5.2 MEQ/L (3.5-5.1)
--- NOTE | 2016-05-27 05:48 | RADRPT ---
EXAM DATE/TIME: 05/27/2016 04:25 [facility] COMPARISON: CHEST SINGLE AP, May 26, 2016, 16:41. INDICATIONS : Shortness of breath, possible pulmonary disease. MEDICAL HISTORY : Cardiovascular disease. Hypertension Renal failure, chronic. SURGICAL HISTORY : Appendectomy. ENCOUNTER: Subsequent ACUITY: 2 days PAIN SCORE: 0/10 LOCATION: Bilateral chest FINDINGS: A single portable frontal view of the chest shows worsening consolidation involving the left lung bas e with new consolidation within the right lung base. No effusions. Heart remains mildly enlarged. No pulmonary vascular engorgement observed. A scoliotic and degenerative spine. CONCLUSION: Worsening left lower lobe infiltrate and new right lower lobe infiltrate with cardiomegaly. This coul d relate to pulmonary edema. Deyvi Celeste Jr., MD on May 27, 2016 at 5:45 Board Certified Radiologist. This report was verified electronically.
[2016-05-27] MEDS: INSULIN ASPART SUPPLEMENTAL SCALE SQ SCH ×4 (06:00→18:00)
[2016-05-27] MEDS: RESP: ALBUTEROL 2.5 MG/3 ML NEB (PRN) NEB (06:50)
[2016-05-27] MEDS: ASPIRIN EC 81 MG TABEC PO SCH (08:03)
[2016-05-27] MEDS: DOCUSATE SODIUM 100 MG CAP PO SCH ×2 (08:03→21:41)
[2016-05-27] MEDS: amLODIPine BESYLATE 5 MG TAB PO SCH (08:03)
[2016-05-27] MEDS: busPIRone HCL 5 MG TAB PO SCH (08:04)
[2016-05-27] MEDS: CLOPIDOGREL 75 MG TAB PO SCH (08:04)
[2016-05-27] MEDS: MEGESTROL ACETATE SUSP 400 MG/10 ML CUP PO SCH (08:04)
[2016-05-27] MEDS: CARVEDILOL 12.5 MG TAB PO SCH ×2 (08:04→21:41)
[2016-05-27] MEDS: SEVELAMER CARBONATE 800 MG TAB PO SCH ×3 (08:04→17:53)
--- NOTE | 2016-05-27 08:04 | HHI.PR ---
Subjective Remarks Airway stable through night. Was able to tolerate mask and nasal O2, but pulls these off. CXR with increased pulmonary fluid this morning. Objective Vital Signs Date Time Temp Pulse Resp B/P Pulse Ox O2 Delivery O2 Flow Rate FiO2 05/27/16 06:51 98 Nasal Cannula 6.00 05/27/16 04:00 99.2 80 20 138/65 100 05/27/16 00:00 99.6 78 24 135/70 05/26/16 23:57 99 Simple Mask 6.00 05/26/16 20:25 100 35 05/26/16 20:00 99.9 80 22 140/65 100 05/26/16 18:25 94 100 05/26/16 17:35 98 Nasal Cannula 4.00 05/26/16 16:00 96.0 90 16 165/70 99 05/26/16 14:15 97.9 82 14 129/85 99 05/26/16 09:35 85 14 161/77 93 05/26/16 09:25 83 14 203/95 100 05/26/16 09:00 100 Nasal Cannula 3.00 05/26/16 08:27 99 Nasal Cannula 3.00 I/O 05/26/16 05/26/16 05/26/16 05/27/16 05/27/16 05/27/16 07:00 15:00 23:00 07:00 15:00 23:00 Intake Total 120 ml 630 ml 199 ml Output Total 3000 ml 300 ml 100 ml Balance 120 ml -3000 ml 330 ml 99 ml Intake Oral 120 ml 200 ml 50 ml IV Total 430 ml 149 ml Output Urine Total 300 ml 100 ml Hemodialysis 3000 ml # Voids 1 Result Diagram: 05/27/16 0453 05/27/16 0453 Assessment and Plan Assessment and Plan Inflammatory left pharyngeal mass. Improved upper airway. Sleeping comfortably. WBC up, but very likely due to steroids, as clinical exam is better. Continue IV steroids and antibiotics today. Rec-check tomorrow. Follow up CT in next 1 to 2 days. Hector Martinez MD May 27, 2016 08:04
[2016-05-27] MEDS: SODIUM CHLORIDE 0.9% FLUSH 10 ML FLUSH SCH ×2 (08:06→21:47)
[2016-05-27 09:02] LABS: BANDS 3 % (0-6); NEUTROPHIL # MANUAL DIFF 37.8 TH/MM3 (1.8-7.7); POLYS (SEG NEUTROPHILS) 97 % (16-70); WBC DIFF SAMPLE 200
[2016-05-27 09:03] LABS: KERATOCYTES OCC (NORMAL); PLATELET ESTIMATE SMEAR NORMAL (NORMAL); PLATELET MORPHOLOGY NORMAL (NORMAL); SCAN/DIFF FINAL DIFF MANUAL
--- NOTE | 2016-05-27 09:11 | HHI.CCPN ---
Subjective Remarks/Hospital Course This is an 85yF with ESRD, COPD, CHF history who presented to the hospital with hyperglycemia and NSTEMI. She was taken to the wharf labourer today for revascularization. She had a BMS placed to the distal LAD with small unrevascularizable diag vessels. She received versed 1mg iv and fentanyl 25mcg iv. At the conclusion of the case, she became unresponsive, hypoxic, and then sustained a PEA arrest requiring ACLS. Anesthesia came and intubated the patient. I was called by Dr. Valentin after ROSC was obtained. He states he felt that this was a respiratory arrest secondary to sedation. I immediately went to evalute the patient. She was still in the wharf labourer. she was awake, non -focal, following commands, not on sedation. I had a discussion with Dr. Valentin. given that it was a very tight LAD lesion and difficult to PCI, we agreed to transfer the patient to CVICU and obtain STAT TTE to rule out tamponade or coronary rupture as a cause for her PEA arrest. This was done at bedside and was negative for acute life-threatening disease. At this point, because the patient met criteria, she was extubated to nasal cannula. Her arterial sheath was pulled. Critical Care medicine is consulted to evaluate and manage her post-cardiac arrest care. 05/17: Patient extubated yesterday. Overnight had intermittent stridor placed on Decadron and when necessary racemic epinephrine. Good response to racemic epinephrine. On my exam there was no stridor patient is alert oriented. CBC showed platelet count 5000. Patient is on Aggrastat. Doubt accuracy of the platelet count-it was 276,000 yesterday. Stat repeat labs sent 05/26/16: Reconsult Critical care consulted by primary service as the patient having intermittent stridor. Hospitalist documentation indicated that she had a sensation of throat shutting down. Patient is ALT CODE, but intubation is permitted. I evaluated the patient in room 718. Patient clearly has inspiratory stridor, with periods of hypopnea. She has received Solu-Medrol and racemic epinephrine. On exam she complains about tenderness to the left lower neck, there is no palpable mass. I will transfer her emergently to the ICU as the patient may need intubation. I've discussed with the rim fire charger operator for [facility] (Belen Braden). CT neck with contrast ordered to evaluate neck mass or inflammation/swelling. It was also noted that the patient's white count increased from 13.8 to 32.8, CXR shows new LLL infiltrate Subjective 05/27: Currently on 6 L nasal cannula. Voice less stridorous. Currently nothing by mouth. No bowel movement. Objective Vital Signs Date Time Temp Pulse Resp B/P Pulse Ox O2 Delivery O2 Flow Rate FiO2 05/27/16 06:51 98 Nasal Cannula 6.00 05/27/16 04:00 99.2 80 20 138/65 05/26/16 20:25 35 Intake and Output 05/26/16 05/26/16 05/27/16 08:00 16:00 00:00 Intake Total 120 ml 630 ml Output Total 3000 ml 300 ml Balance 120 ml -3000 ml 330 ml Result Diagram: 05/27/16 0453 05/27/16 0453 Other Results Microbiology Date/Time Procedure Status Source Growth 05/26/16 19:54 Aerobic Blood Culture Received Blood Peripheral Pending 05/26/16 19:54 Anaerobic Blood Culture Received Blood Peripheral Pending 05/26/16 18:40 Urine Culture Received Urine Catheterized Urine Pending Imaging Last Impressions Chest X-Ray 05/27/16 0600 Signed Impressions: Service Date/Time: Friday, May 27, 2016 04:25 - CONCLUSION: Worsening left lower lobe infiltrate and new right lower lobe infiltrate with cardiomegaly. This could relate to pulmonary edema. Deyvi Celeste Jr., MD Neck CT 05/26/16 0000 Signed Impressions: Service Date/Time: Thursday, May 26, 2016 18:06 - CONCLUSION: Large mass at the base of the left tongue extending inferiorly causing tracheal shift to the right and probable narrowing. This is most consistent with malignancy. Altaf Stubbs MD ADDENDUM: Also in the differential could represent a left-sided peritonsillar abscess with infection extending inferiorly. Lack of intravenous contrast limits evaluation. Altaf Stubbs MD Head CT 05/26/16 0000 Signed Impressions: Service Date/Time: Thursday, May 26, 2016 18:02 - CONCLUSION: 1. Cerebral atrophy and chronic ischemic small vessel vasculopathy. Altaf Stubbs MD Aorta CTA 05/10/16 0000 Signed Impressions: Service Date/Time: Tuesday, May 10, 2016 15:13 - CONCLUSION: 1. There is no evidence of aortic dissection. The widening of the mediastinum seen on the chest x-ray appears to represent a combination of pleural fluid and atelectatic lung along the descending thoracic aorta. 2. There are COPD changes within the pulmonary parenchyma. 3. There are small bilateral effusions. 4. The abdominal aorta and iliac vessels are intact. Yehuda Hanna MD Objective Remarks GENERAL: 85-year-old female, critically ill resting in bed SKIN: Warm and dry. No rash. Right upper extremity AV fistula positive thrill HEAD: Atraumatic. Normocephalic. EYES: Pupils equal and round about 2 mm bilaterally and reactive. No scleral icterus. No injection or drainage. ENT: No nasal bleeding or discharge. NECK: Trachea light deviation to right. No JVD. Inspiratory stridor. Left lower neck somewhat swollen and is tender to palpation CARDIOVASCULAR: Regular rate and rhythm. S1, S2. No S4. 1/6 systolic murmur at apex RESPIRATORY: Conducted inspiratory stridor. Breath sounds equal bilaterally. GASTROINTESTINAL: Abdomen soft, non-tender, nondistended. Hypoactive bowel sounds are appreciated MUSCULOSKELETAL: Extremities without significant peripheral edema. NEUROLOGICAL: Motor grossly within normal limits. Procedures Cardiac Catheterization on 05/16/16 - as per report bare metal stent placed to the mid LAD. Intubation and mechanical ventilation due to PEA arrest after Cardiac Catheterization. A/P Assessment and Plan NEURO/PSYCH: Metabolic encephalopathy Depression Chronic benzodiazepine use Glaucoma -Altered mentation seems to be metabolic metabolic encephalopathy On latanoprost 0.004% 1 drop each eye at night when necessary Holding Vil[place]rd 40 mg by mouth daily for depression Holding Xanax 0.25 mg by mouth 3 times a day as needed for anxiety Currently on BuSpar 5 mill grams by mouth daily for depression RESP: Upper airway obstruction/stridor LLL pneumonia/right lower lobe pneumonia History of FAYE - currently not on CPAP Ulnar edema CT of the neck revealed a mass at the base of left tongue 2.5 x 2.4 cm with deviation of trachea to the right. Vocal cords swollen. Some narrowing the trachea. Evaluated by Dr. Martinez/ENT. Plan repeat CT neck and 1-2 days. Continue with current therapy as below including steroids and antibiotics Nasal cannula/simple mask to maintain saturations greater than equal to 92% BiPAP PRN. Broncho dilator therapy every 6 hours scheduled Scheduled Decadron 6 mg IV q6, Racemic epinephrine PRN. Broad-spectrum antibiotics as below with cefepime and Flagyl Patient is DNI CV: s/p PEA Arrest NSTEMI s/p PCI with BMS to LAD Systolic heart failure Coronary artery disease Echo 05/16 revealed EF 40-45%. Global hyperkinesis. Left atrium dilated. Mild TR. Heart catheterization 05/[address] Valentin - Kem LAD culprit vessel, 60% RCA and 50-60% OM bare metal stent to LAD. Recommended DAP 12-15 months the patient's anemia tolerates Continue aspirin and Plavix On schedule Nitropaste 2 inches every 6 And currently on Norvasc 5 mill grams daily, Coreg 12.5 mg twice a day for hypertension./Home medications Cardiology Dr. Valentin - Requesting BNP, rule out pulmonary embolism. We'll write for Doppler legs currently. Chest x-ray revealed a right less than left infiltrate/edema. Source of dyspnea likely secondary to massive base of left tongue with trachea deviation GI: Patient is currently nothing by mouth Protonix for GI prophylaxis RENAL: ESRD on hemodialysis History of nephrolithiasis Nephrology Dr. Miramontes. Him on dialysis Sunday/Sunday and Sunday -3 L yesterday ID: LLL healthcare associated pneumonia Right lower lobe pneumonia Left tongue base mass Day #2 cefepime and Flagyl also give dose of vancomycin Pertinent cultures 05/26 - blood cultures 2 - pending HEME: Anemia of chronic kidney disease Leukocytosis Leukocytosis likely secondary Decadron/infectious? -Previous acute thrombocytopenia has resolved, most likely secondary to Aggrastat ENDO: Secondary hyperparathyroidism Currently off Sensipar 30 mg by mouth daily FEN: Hyperphosphatemia Hyperkalemia Currently on Renvela 800 milligrams 3 times a day for hyperphosphatemia D50/insulin/bicarbonate/calcium 1. Recheck in 3 hours for elevated potassium PROPH: -Bilateral lower extremity SCDs. IV Protonix, subcutaneous heparin LINES: Utilize peripheral IVs, central line if needed Critical Care: The total critical care time was 35 minutes. Time to perform other separately billable procedures was not included in the critical care time. Healthcare proxy is Maureen Sorensen [phone] goal is return to [facility] with hospice. Previously on [facility] hospice revoked prior to admission Moreno Roe MD May 27, 2016 09:11
[2016-05-27] MEDS ORDERED: INSULIN HUMAN REGULAR 1,000 UNITS/10 ML VIAL IV PUSH ONE ×2 (10:00→14:30)
[2016-05-27] MEDS ORDERED: DEXTROSE 50% IN WATER 50 ML VIAL(D50) IV PUSH ONE ×2 (10:00→14:30)
[2016-05-27] MEDS ORDERED: CALCIUM GLUCONATE 10% 1 GM/10 ML VIAL SLOW IVP ONE ×2 (10:00→14:30)
[2016-05-27] MEDS ORDERED: SODIUM BICARBONATE 8.4% SOLN 50 MEQ/50 ML VIAL SLOW IVP ONE ×2 (10:00→14:30)
[2016-05-27] MEDS: MUPIROCIN 2% OINT 1 APPLIC/GM SYR EACH NARE SCH ×2 (10:00→21:47)
--- NOTE | 2016-05-27 10:44 | HHI.NPPN ---
Subjective General Problems: Anemia Renal Failure: Chronic, End Stage Renal Disease Additional Remarks Patient is awake, confused, getting out of bed, on room air. Review of Systems General Constitutional: Fatigue Ears, Nose, & Throat Ears, Nose & Throat: Sore Throat, Hoarse Cardiovascular Cardiac: Chest Pain Objective Data Data 05/26/16 05/27/16 19:00 07:00 Intake Total 829 ml Output Total 3000 ml 400 ml Balance -3000 ml 429 ml Intake Oral 250 ml IV Total 579 ml Output Urine Total 400 ml Hemodialysis 3000 ml Vital Signs Date Time Temp Pulse Resp B/P Pulse Ox O2 Delivery O2 Flow Rate FiO2 05/27/16 06:51 98 Nasal Cannula 6.00 05/27/16 04:00 99.2 80 20 138/65 100 05/27/16 00:00 99.6 78 24 135/70 05/26/16 23:57 99 Simple Mask 6.00 05/26/16 20:25 100 35 05/26/16 20:00 99.9 80 22 140/65 100 05/26/16 18:25 94 100 05/26/16 17:35 98 Nasal Cannula 4.00 05/26/16 16:00 96.0 90 16 165/70 99 05/26/16 14:15 97.9 82 14 129/85 99 -: 05/27/16 0453 05/27/16 0453 Microbiology 05/26/16 Urine Culture, Received Pending 05/26/16 Aerobic Blood Culture, Resulted Pending 05/26/16 Anaerobic Blood Culture - Final, Resulted ONLY AEROBIC CULTURE ORDERED 05/26/16 Aerobic Blood Culture, Resulted Pending 05/26/16 Anaerobic Blood Culture - Final, Resulted ONLY AEROBIC CULTURE ORDERED Physical Exam General Appearance: No Acute Distress, Comfortable, Malnourished Eyes Eye Exam: Pupils Equal Throat Throat Exam: Oral Mucosa [place] & Moist Neck Neck Exam: Neck Supple Pulmonary Resp Exam: Breath Sounds Equal, No Distress, Rhonchi, Labored Cardiology CV Exam: Regular, Normal Sinus Rhythm, Good Perfusion, Dyspnea on Exertion Gastrointestinal/Abdomen GI Exam: Soft, Non-Tender, Bowel Sounds Present Musculoskeletal MS Exam: Joints Intact, Normal Tone Integumentary Skin Exam: Clear, Warm, Dry, Intact Extremeties Extremities Exam: No Edema, Pedal Pulses Palpable Neurologic Neuro Exam: Alert, Awake, Stuporous Assessment/Plan Discussed Condition With: Patient Assessment Summary: Anemia of CKD, CHF, Hypertension, End Stage Renal Disease Electrolyte Assessment: Hyperkalemia Problem List: (1) ESRD (end stage renal disease) Plan: HD to be continued MWF. avoid IVF, gadolinium (2) CAD (coronary artery disease) Plan: adjust UF with dialysis as tolerated/required cardiology following sp cath with stent to LAD, EF 45% no further PCI per Dr. Valentin she was evaluated by palliative , declined hospice (3) Anemia Plan: Hemoglobin has improved. Continue Epogen. (4) Atrial fibrillation Plan: Rate controlled follow with cardiology (5) Thrombocytopenia Plan: acute, improving, due to Aggrastat antiplatelets have been resumed (6) Stridor Plan: Etiology is unclear, allergic reaction? One dose of Solumedrol. Stop all non essential medications. Plan Patient is confused and agitated, will give Haldol. HD done yesterday, K is 5.2, will follow. Problem Qualifiers (1) CAD (coronary artery disease): Qualified Code: I25.10 - Coronary artery disease due to calcified coronary lesion (2) Anemia: Candy Reyes MD May 27, 2016 10:44
[2016-05-27] MEDS ORDERED: HALOPERIDOL 2 MG TAB PO PRN (10:45)
[2016-05-27] MEDS ORDERED: RESP: ALBUTEROL 2.5 MG/3 ML NEB (SCH) NEB ONE (14:30)
--- NOTE | 2016-05-27 15:29 | PD.CARD.PN ---
Subjective Subjective Remarks asleep in nad Objective Vital Signs / I&O Vital Signs Date Time Temp Pulse Resp B/P Pulse Ox O2 Delivery O2 Flow Rate FiO2 05/27/16 06:51 98 Nasal Cannula 6.00 05/27/16 04:00 99.2 80 20 138/65 100 05/27/16 00:00 99.6 78 24 135/70 05/26/16 23:57 99 Simple Mask 6.00 05/26/16 20:25 100 35 05/26/16 20:00 99.9 80 22 140/65 100 05/26/16 18:25 94 100 05/26/16 17:35 98 Nasal Cannula 4.00 05/26/16 16:00 96.0 90 16 165/70 99 I/O 05/26/16 05/26/16 05/26/16 05/27/16 05/27/16 05/27/16 07:00 15:00 23:00 07:00 15:00 23:00 Intake Total 120 ml 630 ml 199 ml Output Total 3000 ml 300 ml 100 ml Balance 120 ml -3000 ml 330 ml 99 ml Intake Oral 120 ml 200 ml 50 ml IV Total 430 ml 149 ml Output Urine Total 300 ml 100 ml Hemodialysis 3000 ml # Voids 1 Physical Exam GENERAL: SKIN: Warm and dry. HEAD: Normocephalic. EYES: No scleral icterus. No injection or drainage. NECK: Supple, trachea midline. No JVD or lymphadenopathy. CARDIOVASCULAR: Regular rate and rhythm without murmurs, gallops, or rubs. RESPIRATORY: Breath sounds equal bilaterally. No accessory muscle use. GASTROINTESTINAL: Abdomen soft, non-tender, nondistended. MUSCULOSKELETAL: No cyanosis, or edema. BACK: Nontender without obvious deformity. No CVA tenderness. Laboratory Laboratory Tests Test 05/26/16 05/26/16 05/26/16 05/27/16 17:18 17:25 18:45 04:53 White Blood Count 35.9 TH/MM3 37.8 TH/MM3 Red Blood Count 3.36 MIL/MM3 3.54 MIL/MM3 Hemoglobin 10.4 GM/DL 10.6 GM/DL Hematocrit 30.9 % 32.9 % Mean Corpuscular Volume 91.9 FL 93.0 FL Mean Corpuscular Hemoglobin 30.9 PG 30.1 PG Mean Corpuscular Hemoglobin 33.6 % 32.3 % Concent Red Cell Distribution Width 17.8 % 18.0 % Platelet Count 374 TH/MM3 385 TH/MM3 Mean Platelet Volume 7.5 FL 7.4 FL Neutrophils (%) (Auto) 93.5 % 96.2 % Lymphocytes (%) (Auto) 1.3 % 0.9 % Monocytes (%) (Auto) 5.2 % 2.7 % Eosinophils (%) (Auto) 0.0 % 0.0 % Basophils (%) (Auto) 0.0 % 0.2 % Neutrophils # (Auto) 33.5 TH/MM3 36.4 TH/MM3 Lymphocytes # (Auto) 0.5 TH/MM3 0.3 TH/MM3 Monocytes # (Auto) 1.9 TH/MM3 1.0 TH/MM3 Eosinophils # (Auto) 0.0 TH/MM3 0.0 TH/MM3 Basophils # (Auto) 0.0 TH/MM3 0.1 TH/MM3 CBC Comment AUTO DIFF AUTO DIFF Differential Total Cells 100 200 Counted Neutrophils % (Manual) 97 % 97 % Lymphocytes % 1 % 1 % Monocytes % 1 % Neutrophils # (Manual) 35.2 TH/MM3 37.8 TH/MM3 Myelocytes 1 % Differential Comment FINAL DIFF FINAL DIFF MANUAL MANUAL Platelet Estimate NORMAL NORMAL Platelet Morphology Comment NORMAL NORMAL Acanthocytes OCC Sodium Level 134 MEQ/L 135 MEQ/L Potassium Level 4.8 MEQ/L 5.2 MEQ/L Chloride Level 92 MEQ/L 93 MEQ/L Carbon Dioxide Level 32.2 MEQ/L 31.9 MEQ/L Anion Gap 10 MEQ/L 10 MEQ/L Blood Urea Nitrogen 38 MG/DL 50 MG/DL Creatinine 3.76 MG/DL 4.24 MG/DL Estimat Glomerular Filtration 14 ML/MIN 12 ML/MIN Rate Random Glucose 103 MG/DL 114 MG/DL Calcium Level 9.2 MG/DL 8.9 MG/DL Total Bilirubin 0.5 MG/DL Aspartate Amino Transf 10 U/L (AST/SGOT) Alanine Aminotransferase 15 U/L (ALT/SGPT) Alkaline Phosphatase 77 U/L Total Protein 6.6 GM/DL Albumin 3.0 GM/DL 3.2 GM/DL Blood Gas Puncture Site RT RADIAL Blood Gas Patient Temperature 98.6 Blood Gas HCO3 30 mmol/L Blood Gas Base Excess 6.2 mmol/L Blood Gas Oxygen Saturation 97 % Arterial Blood pH 7.46 Arterial Blood Partial 43 mmHg Pressure CO2 Arterial Blood Partial 142 mmHg Pressure O2 Arterial Blood Oxygen Content 16.7 Vol % Arterial Blood 1.6 % Carboxyhemoglobin Arterial Blood Methemoglobin 1.1 % Blood Gas Hemoglobin 12.1 G/DL Oxygen Delivery Device NASAL CANNULA Blood Gas Liter Flow 4 L/M Nasal Screen MRSA (PCR) MRSA DETECTED Band Neutrophils % 3 % Keratocytes OCC Phosphorus Level 3.5 MG/DL B-Type Natriuretic Peptide 1521 PG/ML Test 05/27/16 12:10 Potassium Level 5.7 MEQ/L Assessment and Plan Problem List: (1) Atrial fibrillation, new onset (2) Aortic stenosis (3) Hypertension (4) Hyperlipidemia (5) Depression (6) CAD (coronary artery disease) (7) Chest pain (8) Cardiomyopathy Assessment and Plan 1.) CAD - no chest pain x 4 days, s/p pci bms mid lad, small diagonal vessel jailed but patent, continue dapt as plt>50; chest pain resolved, elevated troponin due to jailed 90% ostial small dx vessel and esrd, do not think this is a life threatening stenosis or that requires admission, o/w patient is completely revascularized 2.) PAF - in nsr, assymptomatic, eliquis held d/t thrombocytopenia 3.) PEA - suspect d/t apnea from fentanyl and/or versed, trop elevated due to pea and esrd, trending down pci; patient is hospice, do not rec recurrent cath due to high risk d/t thrombocytopenia, pea from conscience sedation from fentanyl/versed and inability to access diagonal vessel d/t vessel tortuosity and 90 degreee angle off lad; rec palliative care consult, prn ntg 4.) Ok to dc from cv standpoint, f/u with me hellen; rec hospice, patient undecided 6.) thrombocytopenia - improved, = 129k today 6.) Stridor - possibly related to narcotics, known allergy to dilaudid, mso4, pea/apnea with fentanyl, had stridor with percocet, rec dc percocet 7.) Anemia - hgb improved 8.) Ambulate, scd's, pt consult d/w nurse 9) Hypoxia - rec more fluid removal w dialysus, d/w Dr Roe Problem Qualifiers (1) Hypertension: Qualified Code: I10 - Essential hypertension (2) CAD (coronary artery disease): Qualified Code: I25.10 - Coronary artery disease due to calcified coronary lesion (3) Chest pain: Qualified Code: R07.2 - Precordial pain Zohaib Valentin MD May 27, 2016 15:29
[2016-05-27] MEDS: PANTOPRAZOLE SODIUM 40 MG VIAL IV PUSH SCH (17:53)
--- NOTE | 2016-05-27 20:06 | RADRPT ---
EXAM DATE/TIME: 05/27/2016 18:43 [facility] COMPARISON: No previous studies available for comparison. INDICATIONS : Bilateral leg edema. MEDICAL HISTORY : Congestive heart failure. Arthritis. Migraines. CAD. Chest pain. Palpitations. HTN. Pneumonia. Sleep apnea. GERD. ESRD. Hemophilia. Anemia. MRSA. SURGICAL HISTORY : Tonsillectomy.Coronary artery stent. Appendectomy.Left cataract removed. AV shunt. Cardiac cath. Dial ysis. Hysterectomy. Kidney stone removal. Left kidney stone. Lower back surgery. Bilateral knee repai rs. Blood transfusions. ENCOUNTER: Initial ACUITY: 1 day PAIN SCORE: Non-responsive LOCATION: Bilateral leg. TECHNIQUE: Venous ultrasound of the left and right leg was performed from the inguinal ligament to the proximal calf. Real-time, color Doppler and spectral tracing, compression and augmentation techniques were us ed. FINDINGS: RIGHT LEG: Nonocclusive thrombus is identified in the proximal superficial femoral vein. Deep venous system is o therwise patent. LEFT LEG: Nonocclusive thrombus is identified at the bifurcation of the deep and superficial femoral veins. Darshana p venous system is otherwise patent. CONCLUSION: 1. Focal, nonocclusive thrombus in the proximal right superficial femoral vein and the bifurcation of the deep and superficial femoral veins on the left. 2. Deep venous systems are otherwise patent bilaterally Ramesh Hunter MD on May 27, 2016 at 20:01 Board Certified Radiologist. This report was verified electronically.
[2016-05-28] VITALS (14 sets, daily range): BP systolic 123–149; BP diastolic 58–83; PULSE 68–82; RESP 14–18; TEMP 97.4–98.9; O2SAT 94–100
[2016-05-28] MEDS: metroNIDAZOLE 500 MG INJ 100 ML IV SCH ×3 (01:26→18:29)
[2016-05-28] MEDS: DEXAMETHASONE SOD PHOS 4 MG/ML VIAL IV SCH ×4 (01:27→21:24)
[2016-05-28] MEDS: diphenhydrAMINE HCL 50 MG/ML VIAL IV PUSH SCH ×4 (01:28→18:29)
[2016-05-28] MEDS: CHLORHEXIDINE GLUCONATE 2 % 1 PACK (2 CLOTHS)(taper/protocol) TOPICAL SCH (01:28)
[2016-05-28] MEDS: RESP: ALBUTEROL 2.5 MG/IPRATROPIUM 0.5 MG NEB (SCH) NEB ×4 (04:18→21:26)
[2016-05-28] MEDS: INSULIN ASPART SUPPLEMENTAL SCALE SQ SCH ×4 (04:55→16:37)
[2016-05-28] MEDS: NITROGLYCERIN 2% OINT 1 GM PACKET TOPICAL SCH ×4 (04:56→22:00)
[2016-05-28] MEDS: CEFEPIME INJ 1,000 MG in SODIUM CHLORIDE 0.9% INJ 100 ML IV SCH ×2 (04:56→16:37)
--- NOTE | 2016-05-28 05:31 | RADRPT ---
EXAM DATE/TIME: 05/28/2016 04:34 [facility] COMPARISON: CHEST SINGLE AP, May 27, 2016, 4:25. INDICATIONS : Shortness of breath, possible pulmonary disease. MEDICAL HISTORY : Cerebrovascular disease. Hypertension Renal failure, chronic. SURGICAL HISTORY : Appendectomy. ENCOUNTER: Subsequent ACUITY: 3 days PAIN SCORE: 0/10 LOCATION: Bilateral chest FINDINGS: No significant change. Bibasilar infiltrates remain. Mild cardiomegaly. No discernible effusions. Bon y structures are unremarkable. CONCLUSION: Unchanged bibasilar infiltrates. Deyvi Celeste Jr., MD on May 28, 2016 at 5:29 Board Certified Radiologist. This report was verified electronically.
[2016-05-28 08:17] LABS: AUTOMATED NEUTROPHIL # 30.4 TH/MM3 (1.8-7.7); BASOPHIL # 0.1 TH/MM3 (0-0.2); BASOPHIL % 0.3 % (0.0-2.0); HEMATOCRIT 29.2 % (35.0-46.0); LYMPH % 0.7 % (9.0-44.0); LYMPHOCYTE # 0.2 TH/MM3 (1.0-4.8); MEAN CORPUSCULAR HEMOGLOBIN 30.9 PG (27.0-34.0); MEAN CORPUSCULAR HGB CONC 33.6 % (32.0-36.0); MONO % 2.4 % (0.0-8.0); NEUT % 96.6 % (16.0-70.0); PLATELET COUNT 409 TH/MM3 (150-450); RED BLOOD COUNT 3.17 MIL/MM3 (4.00-5.30); RED CELL DISTRIBUTION WIDTH 18.5 % (11.6-17.2); WHITE BLOOD COUNT 31.5 TH/MM3 (4.0-11.0)
[2016-05-28 08:21] LABS: HEMO FLAGS AUTO DIFF
[2016-05-28] MEDS ORDERED: HEPARIN-D5W INJ 250 ML IV SCH (08:45)
--- NOTE | 2016-05-28 08:49 | HHI.CCPN ---
Subjective Remarks/Hospital Course This is an 85yF with ESRD, COPD, CHF history who presented to the hospital with hyperglycemia and NSTEMI. She was taken to the laboratory apparatus glass grinder today for revascularization. She had a BMS placed to the distal LAD with small unrevascularizable diag vessels. She received versed 1mg iv and fentanyl 25mcg iv. At the conclusion of the case, she became unresponsive, hypoxic, and then sustained a PEA arrest requiring ACLS. Anesthesia came and intubated the patient. I was called by Dr. Valentin after ROSC was obtained. He states he felt that this was a respiratory arrest secondary to sedation. I immediately went to evalute the patient. She was still in the laboratory apparatus glass grinder. she was awake, non -focal, following commands, not on sedation. I had a discussion with Dr. Valentin. given that it was a very tight LAD lesion and difficult to PCI, we agreed to transfer the patient to CVICU and obtain STAT TTE to rule out tamponade or coronary rupture as a cause for her PEA arrest. This was done at bedside and was negative for acute life-threatening disease. At this point, because the patient met criteria, she was extubated to nasal cannula. Her arterial sheath was pulled. Critical Care medicine is consulted to evaluate and manage her post-cardiac arrest care. 05/17: Patient extubated yesterday. Overnight had intermittent stridor placed on Decadron and when necessary racemic epinephrine. Good response to racemic epinephrine. On my exam there was no stridor patient is alert oriented. CBC showed platelet count 5000. Patient is on Aggrastat. Doubt accuracy of the platelet count-it was 276,000 yesterday. Stat repeat labs sent 05/26/16: Reconsult Critical care consulted by primary service as the patient having intermittent stridor. Hospitalist documentation indicated that she had a sensation of throat shutting down. Patient is ALT CODE, but intubation is permitted. I evaluated the patient in room 718. Patient clearly has inspiratory stridor, with periods of hypopnea. She has received Solu-Medrol and racemic epinephrine. On exam she complains about tenderness to the left lower neck, there is no palpable mass. I will transfer her emergently to the ICU as the patient may need intubation. I've discussed with the supercharge repair supervisor for [facility] (Belen Braden). CT neck with contrast ordered to evaluate neck mass or inflammation/swelling. It was also noted that the patient's white count increased from 13.8 to 32.8, CXR shows new LLL infiltrate 05/27: Currently on 6 L nasal cannula. Voice less stridorous. Currently nothing by mouth. No bowel movement. Subjective 05/28: Resting comfortably in bed. On 5 L nasal cannula. No stridor. Nothing by mouth. No bowel movement. Objective Vital Signs Date Time Temp Pulse Resp B/P Pulse Ox O2 Delivery O2 Flow Rate FiO2 05/28/16 06:00 70 05/28/16 04:00 97 05/28/16 04:00 98.5 18 149/73 05/27/16 21:00 Bi-Pap 6.00 35 Intake and Output 05/27/16 05/27/16 05/28/16 08:00 16:00 00:00 Intake Total 199 ml 338 ml 521 ml Output Total 100 ml 350 ml 130 ml Balance 99 ml -12 ml 391 ml Result Diagram: 05/28/16 0747 05/27/16 1745 Other Results Microbiology Date/Time Procedure Status Source Growth 05/26/16 19:54 Aerobic Blood Culture - Preliminary Resulted Blood Peripheral NO GROWTH IN 1 DAY 05/26/16 19:54 Anaerobic Blood Culture - Final Resulted Blood Peripheral ONLY AEROBIC CULTURE ORDERED 05/26/16 18:40 Urine Culture - Final Complete Urine Catheterized Urine NO GROWTH IN 48 HOURS. Imaging Last Impressions Chest X-Ray 05/28/16 0600 Signed Impressions: Service Date/Time: Saturday, May 28, 2016 04:34 - CONCLUSION: Unchanged bibasilar infiltrates. Deyvi Celeste Jr., MD Lower Extremity Ultrasound 05/27/16 0000 Signed Impressions: Service Date/Time: Friday, May 27, 2016 18:43 - CONCLUSION: 1. Focal, nonocclusive thrombus in the proximal right superficial femoral vein and the bifurcation of the deep and superficial femoral veins on the left. 2. Deep venous systems are otherwise patent bilaterally Ramesh Hunter MD Neck CT 05/26/16 0000 Signed Impressions: Service Date/Time: Thursday, May 26, 2016 18:06 - CONCLUSION: Large mass at the base of the left tongue extending inferiorly causing tracheal shift to the right and probable narrowing. This is most consistent with malignancy. Altaf Stubbs MD ADDENDUM: Also in the differential could represent a left-sided peritonsillar abscess with infection extending inferiorly. Lack of intravenous contrast limits evaluation. Altaf Stubbs MD Head CT 05/26/16 0000 Signed Impressions: Service Date/Time: Thursday, May 26, 2016 18:02 - CONCLUSION: 1. Cerebral atrophy and chronic ischemic small vessel vasculopathy. Altaf Stubbs MD Aorta CTA 05/10/16 0000 Signed Impressions: Service Date/Time: Tuesday, May 10, 2016 15:13 - CONCLUSION: 1. There is no evidence of aortic dissection. The widening of the mediastinum seen on the chest x-ray appears to represent a combination of pleural fluid and atelectatic lung along the descending thoracic aorta. 2. There are COPD changes within the pulmonary parenchyma. 3. There are small bilateral effusions. 4. The abdominal aorta and iliac vessels are intact. Yehuda Hanna MD Objective Remarks GENERAL: 85-year-old female, critically ill resting in bed SKIN: Warm and dry. No rash. Right upper extremity AV fistula positive thrill HEAD: Atraumatic. Normocephalic. EYES: Pupils equal and round about 2 mm bilaterally and reactive. No scleral icterus. No injection or drainage. ENT: No nasal bleeding or discharge. NECK: Trachea posterior midline. No JVD. With no stridor. Left lower neck less swollen. CARDIOVASCULAR: Regular rate and rhythm. S1, S2. No S4. 1/6 systolic murmur at apex RESPIRATORY: Conducted inspiratory stridor. Breath sounds equal bilaterally. GASTROINTESTINAL: Abdomen soft, non-tender, nondistended. Hypoactive bowel sounds are appreciated MUSCULOSKELETAL: Extremities without significant peripheral edema. NEUROLOGICAL: Motor grossly within normal limits. Procedures Cardiac Catheterization on 05/16/16 - as per report bare metal stent placed to the mid LAD. Intubation and mechanical ventilation due to PEA arrest after Cardiac Catheterization. A/P Assessment and Plan NEURO/PSYCH: Metabolic encephalopathy Depression Chronic benzodiazepine use Glaucoma On latanoprost 0.004% 1 drop each eye at night when necessary Holding Vilbyrd 40 mg by mouth daily for depression Holding Xanax 0.25 mg by mouth 3 times a day as needed for anxiety Currently on BuSpar 5 mill grams by mouth daily for depression Limit sedatives especially narcotics RESP: Upper airway obstruction/stridor LLL pneumonia/right lower lobe pneumonia History of FAYE - currently not on CPAP Ulnar edema CT of the neck revealed a mass at the base of left tongue 2.5 x 2.4 cm with deviation of trachea to the right. Vocal cords swollen. Some narrowing the trachea. Evaluated by Dr. Martinez/ENT. Plan repeat CT neck and 1-2 days. Continue with current therapy as below including steroids and antibiotics Nasal cannula/simple mask to maintain saturations greater than equal to 92% BiPAP PRN. Broncho dilator therapy every 6 hours scheduled Scheduled Decadron 6 mg IV q6, Racemic epinephrine PRN. Broad-spectrum antibiotics as below with cefepime and Flagyl Patient is alternate CODE/intubation only CT neck in a.m. 05/29 ordered to reassess tongue mass CV: s/p PEA Arrest NSTEMI s/p PCI with BMS to LAD Systolic heart failure Coronary artery disease Left PEEP/superficial femoral vein thrombus, right superficial vein thrombus Echo 05/16 revealed EF 40-45%. Global hyperkinesis. Left atrium dilated. Mild TR. Heart catheterization 05/[address] Valentin - Kem LAD culprit vessel, 60% RCA and 50-60% OM bare metal stent to LAD. Recommended DAP 12-15 months the patient's anemia tolerates Continue aspirin and Plavix On schedule Nitropaste 2 inches every 6 And currently on Norvasc 5 mill grams daily, Coreg 12.5 mg twice a day for hypertension./Home medications Cardiology Dr. Valentin Chest x-ray revealed a right less than left infiltrate/edema. Source of dyspnea likely secondary to massive base of left tongue with trachea deviation Ordered bilateral lower extremity Dopplers 05/28 - left deep/spatial vein thrombus, right superficial vein thrombus - Currently on DAP. We'll discuss with cardiology prior to initiating systemic anticoagulation GI: Likely okay for clears/renal diet Protonix for GI prophylaxis RENAL: ESRD on hemodialysis History of nephrolithiasis Nephrology Dr. Miramontes. Scheduled on dialysis Sunday/Sunday and Sunday -3 L yesterday ID: LLL healthcare associated pneumonia Right lower lobe pneumonia Left tongue base mass Day #3 cefepime and Flagyl also give dose of vancomycin Pertinent cultures 05/26 - blood cultures 2 -no growth HEME: Anemia of chronic kidney disease Leukocytosis Leukocytosis likely secondary Decadron/infectious? -Previous acute thrombocytopenia has resolved, most likely secondary to Aggrastat ENDO: Secondary hyperparathyroidism Currently off Sensipar 30 mg by mouth daily FEN: Hyperphosphatemia Hyperkalemia Currently on Renvela 800 milligrams 3 times a day for hyperphosphatemia A.m. laboratories pending PROPH: -Bilateral lower extremity SCDs. IV Protonix, subcutaneous heparin LINES: Utilize peripheral IVs, central line if needed Critical Care: The total critical care time was 35 minutes. Time to perform other separately billable procedures was not included in the critical care time. Healthcare proxy is Maureen Sorensen [phone] goal is [facility] Moreno Roe MD May 28, 2016 08:49
[2016-05-28 08:52] LABS: MAGNESIUM 2.3 MG/DL (1.5-2.5)
[2016-05-28] MEDS: SEVELAMER CARBONATE 800 MG TAB PO SCH ×3 (09:00→16:37)
[2016-05-28 09:44] LABS: BANDS 1 % (0-6); NEUTROPHIL # MANUAL DIFF 31.2 TH/MM3 (1.8-7.7); POLYS (SEG NEUTROPHILS) 98 % (16-70); WBC DIFF SAMPLE 100
[2016-05-28 09:45] LABS: ACANTHOCYTES OCC (NORMAL); KERATOCYTES OCC (NORMAL); PLATELET ESTIMATE SMEAR NORMAL (NORMAL); PLATELET MORPHOLOGY NORMAL (NORMAL); SCAN/DIFF FINAL DIFF MANUAL
--- NOTE | 2016-05-28 10:06 | HHI.PR ---
Subjective Remarks Now on O2 nasal cannula. WBC down slightly. Objective Vital Signs Date Time Temp Pulse Resp B/P Pulse Ox O2 Delivery O2 Flow Rate FiO2 05/28/16 06:00 70 05/28/16 04:00 97 05/28/16 04:00 75 05/28/16 04:00 98.5 75 18 149/73 97 05/28/16 02:00 76 05/28/16 01:04 97 05/28/16 00:00 96 05/28/16 00:00 98.8 82 16 124/71 96 05/28/16 00:00 82 05/27/16 22:00 98 05/27/16 22:00 90 05/27/16 21:00 96 Bi-Pap 6.00 35 05/27/16 20:32 100 35 05/27/16 20:00 75 05/27/16 20:00 89 Nasal Cannula 6.00 05/27/16 20:00 98.8 75 24 100/78 93 05/27/16 18:00 76 05/27/16 16:00 100 Nasal Cannula 2.00 05/27/16 16:00 78 05/27/16 16:00 98.9 78 32 138/65 100 05/27/16 14:00 78 05/27/16 12:00 99.4 80 16 149/69 99 05/27/16 12:00 100 Nasal Cannula 4.00 05/27/16 12:00 80 I/O 05/27/16 05/27/16 05/27/16 05/28/16 05/28/16 05/28/16 07:00 15:00 23:00 07:00 15:00 23:00 Intake Total 199 ml 338 ml 521 ml 288 ml Output Total 100 ml 350 ml 130 ml 50 ml Balance 99 ml -12 ml 391 ml 238 ml Intake Oral 50 ml 100 ml 50 ml 50 ml IV Total 149 ml 238 ml 471 ml 238 ml Output Urine Total 100 ml 350 ml 130 ml 50 ml Result Diagram: 05/28/16 0747 05/28/16 0747 Assessment and Plan Assessment and Plan Inflammatory left pharyngeal mass.Now on O2 nasal cannula. Improved and stable for follow up CT neck. Agree with plan for tomorrow. With contrast will be better if possible. Can decrease Decadron to 6 mg q 12 hours, continue antibiotics. Hope to treat this medically with steroids and antibiotics. Would be better to avoid a procedure and intubation if possible. Hector Martinez MD May 28, 2016 10:06
[2016-05-28] MEDS: busPIRone HCL 5 MG TAB PO SCH (10:37)
[2016-05-28] MEDS: amLODIPine BESYLATE 5 MG TAB PO SCH (10:37)
[2016-05-28] MEDS: CARVEDILOL 12.5 MG TAB PO SCH ×2 (10:37→21:24)
[2016-05-28] MEDS: DOCUSATE SODIUM 100 MG CAP PO SCH ×2 (10:37→21:22)
[2016-05-28] MEDS: MUPIROCIN 2% OINT 1 APPLIC/GM SYR EACH NARE SCH ×2 (10:37→21:21)
[2016-05-28] MEDS: ASPIRIN EC 81 MG TABEC PO SCH (10:38)
[2016-05-28] MEDS: MEGESTROL ACETATE SUSP 400 MG/10 ML CUP PO SCH (10:39)
[2016-05-28] MEDS: CLOPIDOGREL 75 MG TAB PO SCH (10:39)
[2016-05-28] MEDS: SODIUM CHLORIDE 0.9% FLUSH 10 ML FLUSH SCH ×2 (10:39→21:21)
[2016-05-28 11:15] LABS: APTT (PATIENT) 27.5 SEC (24.3-30.1); INTERNATIONAL NORMALIZED RATIO 1.2 RATIO; PROTHROMBIN TIME - PATIENT 13.4 SEC (9.8-11.6)
--- NOTE | 2016-05-28 14:11 | HHI.NPPN ---
Subjective General Problems: Anemia Renal Failure: Chronic, End Stage Renal Disease Additional Remarks Patient is sleepy and arousable, not in distress. Review of Systems General Constitutional: Fatigue Ears, Nose, & Throat Ears, Nose & Throat: Sore Throat, Hoarse Cardiovascular Cardiac: Chest Pain Objective Data Data 05/27/16 05/28/16 19:00 07:00 Intake Total 338 ml 809 ml Output Total 350 ml 180 ml Balance -12 ml 629 ml Intake Oral 100 ml 100 ml IV Total 238 ml 709 ml Output Urine Total 350 ml 180 ml Vital Signs Date Time Temp Pulse Resp B/P Pulse Ox O2 Delivery O2 Flow Rate FiO2 05/28/16 11:50 96 Nasal Cannula 6.00 05/28/16 06:00 70 05/28/16 04:00 97 05/28/16 04:00 75 05/28/16 04:00 98.5 75 18 149/73 97 05/28/16 02:00 76 05/28/16 01:04 97 05/28/16 00:00 96 05/28/16 00:00 98.8 82 16 124/71 96 05/28/16 00:00 82 05/27/16 22:00 98 05/27/16 22:00 90 05/27/16 21:00 96 Bi-Pap 6.00 35 05/27/16 20:32 100 35 05/27/16 20:00 75 05/27/16 20:00 89 Nasal Cannula 6.00 05/27/16 20:00 98.8 75 24 100/78 93 05/27/16 18:00 76 05/27/16 16:00 100 Nasal Cannula 2.00 05/27/16 16:00 78 05/27/16 16:00 98.9 78 32 138/65 100 -: 05/28/16 0747 05/28/16 0747 Physical Exam General Appearance: No Acute Distress, Comfortable, Malnourished Eyes Eye Exam: Pupils Equal Throat Throat Exam: Oral Mucosa [place] & Moist Neck Neck Exam: Neck Supple Pulmonary Resp Exam: Breath Sounds Equal, No Distress, Rhonchi, Labored Cardiology CV Exam: Regular, Normal Sinus Rhythm, Good Perfusion, Dyspnea on Exertion Gastrointestinal/Abdomen GI Exam: Soft, Non-Tender, Bowel Sounds Present Musculoskeletal MS Exam: Joints Intact, Normal Tone Integumentary Skin Exam: Clear, Warm, Dry, Intact Extremeties Extremities Exam: No Edema, Pedal Pulses Palpable Neurologic Neuro Exam: Alert, Awake, Stuporous Assessment/Plan Discussed Condition With: Patient Assessment Summary: Anemia of CKD, CHF, Hypertension, End Stage Renal Disease Electrolyte Assessment: Hyperkalemia Problem List: (1) ESRD (end stage renal disease) Plan: HD to be continued MWF. avoid IVF, gadolinium (2) CAD (coronary artery disease) Plan: adjust UF with dialysis as tolerated/required cardiology following sp cath with stent to LAD, EF 45% no further PCI per Dr. Valentin she was evaluated by palliative , declined hospice (3) Anemia Plan: Hemoglobin has improved. Continue Epogen. (4) Atrial fibrillation Plan: Rate controlled follow with cardiology (5) Thrombocytopenia Plan: acute, improving, due to Aggrastat antiplatelets have been resumed (6) Stridor Plan: Etiology is unclear, allergic reaction? One dose of Solumedrol. Stop all non essential medications. Plan Agitation is better with Haldol. HD is MWF. Dr. Miramontes will follow in AM. Problem Qualifiers (1) CAD (coronary artery disease): Qualified Code: I25.10 - Coronary artery disease due to calcified coronary lesion (2) Anemia: Candy Reyes MD May 28, 2016 14:11
[2016-05-28 16:27] LABS: APTT (PATIENT) 24.7 SEC (24.3-30.1)
[2016-05-28] MEDS: PANTOPRAZOLE SODIUM 40 MG VIAL IV PUSH SCH (16:37)
[2016-05-28] MEDS: APIXABAN 2.5 MG TABLET PO SCH (21:25)
[2016-05-29] VITALS (14 sets, daily range): BP systolic 128–148; BP diastolic 65–72; PULSE 66–80; RESP 12–22; TEMP 98.1–98.8; O2SAT 95–100
[2016-05-29] MEDS: CHLORHEXIDINE GLUCONATE 2 % 1 PACK (2 CLOTHS)(taper/protocol) TOPICAL SCH (04:00)
[2016-05-29] MEDS: diphenhydrAMINE HCL 50 MG/ML VIAL IV PUSH SCH ×4 (04:01→21:21)
[2016-05-29] MEDS: DEXAMETHASONE SOD PHOS 4 MG/ML VIAL IV SCH ×3 (04:01→21:22)
[2016-05-29] MEDS: metroNIDAZOLE 500 MG INJ 100 ML IV SCH ×3 (04:01→18:12)
[2016-05-29] MEDS: NITROGLYCERIN 2% OINT 1 GM PACKET TOPICAL SCH ×4 (04:06→21:23)
[2016-05-29] MEDS: RESP: ALBUTEROL 2.5 MG/IPRATROPIUM 0.5 MG NEB (SCH) NEB ×4 (04:18→20:31)
[2016-05-29] MEDS: INSULIN ASPART SUPPLEMENTAL SCALE SQ SCH ×5 (06:00→23:53)
[2016-05-29] MEDS: CEFEPIME INJ 1,000 MG in SODIUM CHLORIDE 0.9% INJ 100 ML IV SCH ×2 (06:36→18:14)
[2016-05-29 06:57] LABS: AUTOMATED NEUTROPHIL # 16.7 TH/MM3 (1.8-7.7); BASOPHIL # 0.1 TH/MM3 (0-0.2); BASOPHIL % 0.4 % (0.0-2.0); HEMO FLAGS DIFF FINAL; LYMPH % 1.4 % (9.0-44.0); LYMPHOCYTE # 0.2 TH/MM3 (1.0-4.8); MEAN CELL VOLUME 91.2 FL (80.0-100.0); MONO % 2.7 % (0.0-8.0); NEUT % 95.5 % (16.0-70.0); PLATELET COUNT 421 TH/MM3 (150-450); RED BLOOD COUNT 3.07 MIL/MM3 (4.00-5.30); RED CELL DISTRIBUTION WIDTH 18.4 % (11.6-17.2); WHITE BLOOD COUNT 17.5 TH/MM3 (4.0-11.0)
[2016-05-29 07:15] LABS: BICARBONATE 28.7 MEQ/L (21.0-32.0); POTASSIUM 5.2 MEQ/L (3.5-5.1)
[2016-05-29] MEDS: DOCUSATE SODIUM 100 MG CAP PO SCH ×2 (08:54→21:22)
[2016-05-29] MEDS: MEGESTROL ACETATE SUSP 400 MG/10 ML CUP PO SCH (08:54)
[2016-05-29] MEDS: amLODIPine BESYLATE 5 MG TAB PO SCH (08:54)
[2016-05-29] MEDS: ASPIRIN EC 81 MG TABEC PO SCH (08:54)
[2016-05-29] MEDS: busPIRone HCL 5 MG TAB PO SCH (08:54)
[2016-05-29] MEDS: CLOPIDOGREL 75 MG TAB PO SCH (08:54)
[2016-05-29] MEDS: APIXABAN 2.5 MG TABLET PO SCH ×2 (08:54→21:22)
[2016-05-29] MEDS: MUPIROCIN 2% OINT 1 APPLIC/GM SYR EACH NARE SCH ×2 (08:55→21:22)
[2016-05-29] MEDS: SEVELAMER CARBONATE 800 MG TAB PO SCH ×3 (08:55→17:56)
[2016-05-29] MEDS: CARVEDILOL 12.5 MG TAB PO SCH ×2 (08:55→21:22)
[2016-05-29] MEDS: SODIUM CHLORIDE 0.9% FLUSH 10 ML FLUSH SCH ×2 (08:55→21:22)
[2016-05-29] MEDS ORDERED: IOHEXOL 350 MG/ML 10 ML VIAL (for RAD DIAG) IV ONE (09:53)
--- NOTE | 2016-05-29 10:42 | HHI.NPPN ---
Subjective General Problems: Anemia Renal Failure: Chronic, End Stage Renal Disease Interval History She is tearful, has sore throat. CT neck taken earlier today. She is requesting oral fluids. (Lelo Chong) Review of Systems General Constitutional: Fatigue (Lelo Chong) Ears, Nose, & Throat Ears, Nose & Throat: Sore Throat, Hoarse (Lelo Chong) Cardiovascular Cardiac: Chest Pain (Lelo Chong) Objective Data Data 05/28/16 05/29/16 19:00 07:00 Intake Total 349 ml 451 ml Output Total 250 ml 120 ml Balance 99 ml 331 ml Intake Oral 100 ml 100 ml IV Total 249 ml 351 ml Output Urine Total 250 ml 120 ml Vital Signs Date Time Temp Pulse Resp B/P Pulse Ox O2 Delivery O2 Flow Rate FiO2 05/29/16 09:57 95 Nasal Cannula 4.00 05/29/16 06:00 80 05/29/16 04:00 98.4 79 22 144/67 99 05/29/16 04:00 79 05/29/16 04:00 99 Nasal Cannula 4.00 05/29/16 02:00 72 05/29/16 00:00 68 05/29/16 00:00 100 Nasal Cannula 4.00 05/29/16 00:00 98.4 68 14 128/72 100 05/28/16 22:00 69 05/28/16 21:28 100 Nasal Cannula 4.00 05/28/16 20:00 71 05/28/16 20:00 100 Nasal Cannula 4.00 05/28/16 20:00 98.4 71 14 125/58 100 05/28/16 16:00 99 Nasal Cannula 4.00 05/28/16 16:00 97.4 68 16 123/64 98 05/28/16 16:00 68 05/28/16 14:00 71 05/28/16 12:00 71 05/28/16 12:00 100 Nasal Cannula 2.00 05/28/16 12:00 97.7 71 14 143/83 100 05/28/16 11:50 96 Nasal Cannula 6.00 (Lelo Chong) -: 05/29/16 0614 05/29/16 0614 Imaging Last Impressions Chest X-Ray 05/28/16 0600 Signed Impressions: Service Date/Time: Saturday, May 28, 2016 04:34 - CONCLUSION: Unchanged bibasilar infiltrates. Deyvi Celeste Jr., MD Lower Extremity Ultrasound 05/27/16 0000 Signed Impressions: Service Date/Time: Friday, May 27, 2016 18:43 - CONCLUSION: 1. Focal, nonocclusive thrombus in the proximal right superficial femoral vein and the bifurcation of the deep and superficial femoral veins on the left. 2. Deep venous systems are otherwise patent bilaterally Ramesh Hunter MD Neck CT 05/26/16 0000 Signed Impressions: Service Date/Time: Thursday, May 26, 2016 18:06 - CONCLUSION: Large mass at the base of the left tongue extending inferiorly causing tracheal shift to the right and probable narrowing. This is most consistent with malignancy. Altaf Stubbs MD ADDENDUM: Also in the differential could represent a left-sided peritonsillar abscess with infection extending inferiorly. Lack of intravenous contrast limits evaluation. Altaf Stubbs MD Head CT 05/26/16 0000 Signed Impressions: Service Date/Time: Thursday, May 26, 2016 18:02 - CONCLUSION: 1. Cerebral atrophy and chronic ischemic small vessel vasculopathy. Altaf Stubbs MD Aorta CTA 05/10/16 0000 Signed Impressions: Service Date/Time: Tuesday, May 10, 2016 15:13 - CONCLUSION: 1. There is no evidence of aortic dissection. The widening of the mediastinum seen on the chest x-ray appears to represent a combination of pleural fluid and atelectatic lung along the descending thoracic aorta. 2. There are COPD changes within the pulmonary parenchyma. 3. There are small bilateral effusions. 4. The abdominal aorta and iliac vessels are intact. Yehuda Hanna MD (Lelo Chong) Physical Exam General Appearance: No Acute Distress, Comfortable, Anxious, Malnourished (Lelo Chong. KNIFE CHANGER) Eyes Eye Exam: Pupils Equal (Lelo Chong B. KNIFE CHANGER) Throat Throat Exam: Oral Mucosa [place] & Moist (Lelo Chong B. KNIFE CHANGER) Neck Neck Exam: Neck Supple (Lelo Chong B. KNIFE CHANGER) Pulmonary Resp Exam: Breath Sounds Equal, No Distress, Diminished Breath Sounds, Poor Inspiratory Effort (Lelo Chong) Cardiology CV Exam: Regular, Normal Sinus Rhythm, Good Perfusion, Dyspnea on Exertion ( Lelo Chong) Gastrointestinal/Abdomen GI Exam: Soft, Non-Tender, Bowel Sounds Present (Lelo Chong) Musculoskeletal MS Exam: Joints Intact, Normal Tone (Lelo Chong) Integumentary Skin Exam: Clear, Warm, Dry, Intact (Lelo Chong) Extremeties Extremities Exam: No Edema, Pedal Pulses Palpable Extremeties Remarks right AVF, accessed during HD, some bruising around site (Lelo Chong) Neurologic Neuro Exam: Alert, Awake, Stuporous (Lelo Chong) Assessment/Plan Discussed Condition With: Patient Assessment Summary: Anemia of CKD, CHF, Hypertension, End Stage Renal Disease Electrolyte Assessment: Hyperkalemia Problem List: (1) ESRD (end stage renal disease) Plan: HD to be continued MWF. She is due today K 5.3, repeat in am avoid IVF, gadolinium has functioning fistula for dialysis oliguric at baseline, will have stout removed (2) Stridor Plan: Etiology is unclear, allergic reaction? ENT following, CT taken with pending results she is on steroids, racemic epinephrine (3) CAD (coronary artery disease) Plan: adjust UF with dialysis as tolerated/required cardiology following sp cath with stent to LAD, EF 45% no further PCI per Dr. Valentin (4) Anemia Plan: Hemoglobin has improved. Continue Epogen. (5) Atrial fibrillation Plan: Rate controlled follow with cardiology (6) Thrombocytopenia Plan: acute, improving, due to Aggrastat antiplatelets have been resumed (Lelo Chong) Plan patient was seen and examined. Agree with above assessment and plan. Dialysis is planned for today. ENT workup is in progress. Had CT of the neck. (Roland Miramontes MD) Problem Qualifiers (1) CAD (coronary artery disease): Qualified Code: I25.10 - Coronary artery disease due to calcified coronary lesion (2) Anemia: Lelo Chong May 29, 2016 10:42 Roland Miramontes MD May 29, 2016 10:53
--- NOTE | 2016-05-29 11:53 | HHI.CCPN ---
Subjective Remarks/Hospital Course This is an 85yF with ESRD, COPD, CHF history who presented to the hospital with hyperglycemia and NSTEMI. She was taken to the energy systems laboratory director today for revascularization. She had a BMS placed to the distal LAD with small unrevascularizable diag vessels. She received versed 1mg iv and fentanyl 25mcg iv. At the conclusion of the case, she became unresponsive, hypoxic, and then sustained a PEA arrest requiring ACLS. Anesthesia came and intubated the patient. I was called by Dr. Valentin after ROSC was obtained. He states he felt that this was a respiratory arrest secondary to sedation. I immediately went to evalute the patient. She was still in the energy systems laboratory director. she was awake, non -focal, following commands, not on sedation. I had a discussion with Dr. Valentin. given that it was a very tight LAD lesion and difficult to PCI, we agreed to transfer the patient to CVICU and obtain STAT TTE to rule out tamponade or coronary rupture as a cause for her PEA arrest. This was done at bedside and was negative for acute life-threatening disease. At this point, because the patient met criteria, she was extubated to nasal cannula. Her arterial sheath was pulled. Critical Care medicine is consulted to evaluate and manage her post-cardiac arrest care. 05/17: Patient extubated yesterday. Overnight had intermittent stridor placed on Decadron and when necessary racemic epinephrine. Good response to racemic epinephrine. On my exam there was no stridor patient is alert oriented. CBC showed platelet count 5000. Patient is on Aggrastat. Doubt accuracy of the platelet count-it was 276,000 yesterday. Stat repeat labs sent 05/26/16: Reconsult Critical care consulted by primary service as the patient having intermittent stridor. Hospitalist documentation indicated that she had a sensation of throat shutting down. Patient is ALT CODE, but intubation is permitted. I evaluated the patient in room 718. Patient clearly has inspiratory stridor, with periods of hypopnea. She has received Solu-Medrol and racemic epinephrine. On exam she complains about tenderness to the left lower neck, there is no palpable mass. I will transfer her emergently to the ICU as the patient may need intubation. I've discussed with the discharge planner for [facility] (Belen Braden). CT neck with contrast ordered to evaluate neck mass or inflammation/swelling. It was also noted that the patient's white count increased from 13.8 to 32.8, CXR shows new LLL infiltrate 05/27: Currently on 6 L nasal cannula. Voice less stridorous. Currently nothing by mouth. No bowel movement. 05/28: Resting in bed in no acute distress. No acute findings. She will speak complete sentences. 5 L nasal cannula. Subjective 05/29: Afebrile. Plan for hemodialysis at 1 PM. States she wants to go home. Denies chest pain. No stridor. Objective Vital Signs Date Time Temp Pulse Resp B/P Pulse Ox O2 Delivery O2 Flow Rate FiO2 05/29/16 09:57 95 Nasal Cannula 4.00 05/29/16 06:00 80 05/29/16 04:00 98.4 22 144/67 05/27/16 21:00 35 Intake and Output 05/28/16 05/28/16 05/29/16 08:00 16:00 00:00 Intake Total 288 ml 349 ml 270 ml Output Total 50 ml 250 ml 70 ml Balance 238 ml 99 ml 200 ml Result Diagram: 05/29/16 0614 05/29/16 0614 Other Results Microbiology Date/Time Procedure Status Source Growth 05/26/16 19:54 Aerobic Blood Culture - Preliminary Resulted Blood Peripheral NO GROWTH IN 3 DAYS 05/26/16 19:54 Anaerobic Blood Culture - Final Resulted Blood Peripheral ONLY AEROBIC CULTURE ORDERED 05/26/16 18:40 Urine Culture - Final Complete Urine Catheterized Urine NO GROWTH IN 48 HOURS. Imaging Last Impressions Chest X-Ray 05/28/16 0600 Signed Impressions: Service Date/Time: Saturday, May 28, 2016 04:34 - CONCLUSION: Unchanged bibasilar infiltrates. Deyvi Celeste Jr., MD Lower Extremity Ultrasound 05/27/16 0000 Signed Impressions: Service Date/Time: Friday, May 27, 2016 18:43 - CONCLUSION: 1. Focal, nonocclusive thrombus in the proximal right superficial femoral vein and the bifurcation of the deep and superficial femoral veins on the left. 2. Deep venous systems are otherwise patent bilaterally Ramesh Hunter MD Neck CT 05/26/16 0000 Signed Impressions: Service Date/Time: Thursday, May 26, 2016 18:06 - CONCLUSION: Large mass at the base of the left tongue extending inferiorly causing tracheal shift to the right and probable narrowing. This is most consistent with malignancy. Altaf Stubbs MD ADDENDUM: Also in the differential could represent a left-sided peritonsillar abscess with infection extending inferiorly. Lack of intravenous contrast limits evaluation. Altaf Stubbs MD Head CT 05/26/16 0000 Signed Impressions: Service Date/Time: Thursday, May 26, 2016 18:02 - CONCLUSION: 1. Cerebral atrophy and chronic ischemic small vessel vasculopathy. Altaf Stubbs MD Aorta CTA 05/10/16 0000 Signed Impressions: Service Date/Time: Tuesday, May 10, 2016 15:13 - CONCLUSION: 1. There is no evidence of aortic dissection. The widening of the mediastinum seen on the chest x-ray appears to represent a combination of pleural fluid and atelectatic lung along the descending thoracic aorta. 2. There are COPD changes within the pulmonary parenchyma. 3. There are small bilateral effusions. 4. The abdominal aorta and iliac vessels are intact. Yehuda Hanna MD Objective Remarks GENERAL: 85-year-old female, critically ill resting in bed in no acute distress SKIN: Warm and dry. No rash. Right upper extremity AV fistula positive thrill HEAD: Atraumatic. Normocephalic. EYES: Pupils equal and round about 2 mm bilaterally and reactive. No scleral icterus. No injection or drainage. ENT: No nasal bleeding or discharge. NECK: Trachea posterior midline. No JVD. With no stridor. Left lower neck less swollen. CARDIOVASCULAR: Regular rate and rhythm. S1, S2. No S4. 1/6 systolic murmur at apex RESPIRATORY: Breath sounds equal and symmetric. Normal symmetrical excursion GASTROINTESTINAL: Abdomen soft, non-tender, nondistended. Hypoactive bowel sounds are appreciated MUSCULOSKELETAL: Extremities without significant peripheral edema. NEUROLOGICAL: Motor grossly within normal limits. Strength is equal symmetric. Normal sensation. Procedures Cardiac Catheterization on 05/16/16 - as per report bare metal stent placed to the mid LAD. Intubation and mechanical ventilation due to PEA arrest after Cardiac Catheterization. A/P Assessment and Plan NEURO/PSYCH: Metabolic encephalopathy Depression Chronic benzodiazepine use Glaucoma On latanoprost 0.004% 1 drop each eye at night when necessary Holding Vilbyrd 40 mg by mouth daily for depression Holding Xanax 0.25 mg by mouth 3 times a day as needed for anxiety Currently on BuSpar 5 mill grams by mouth daily for depression Limit sedatives especially narcotics RESP: Upper airway obstruction/stridor LLL pneumonia/right lower lobe pneumonia History of FAYE - currently not on CPAP Ulnar edema CT of the neck revealed a mass at the base of left tongue 2.5 x 2.4 cm with deviation of trachea to the right. Vocal cords swollen. Some narrowing the trachea. Evaluated by Dr. Martinez/ENT. Plan repeat CT neck and 1-2 days. Continue with current therapy as below including steroids and antibiotics Nasal cannula/simple mask to maintain saturations greater than equal to 92% BiPAP PRN. Broncho dilator therapy every 6 hours scheduled Scheduled Decadron 6 mg IV q12, Racemic epinephrine PRN. Broad-spectrum antibiotics as below with cefepime and Flagyl Patient is alternate CODE/intubation only CT neck in a.m. 05/29 ordered to reassess tongue mass completed. Results pending CV: s/p PEA Arrest NSTEMI s/p PCI with BMS to LAD Systolic heart failure Coronary artery disease Left PEEP/superficial femoral vein thrombus, right superficial vein thrombus Echo 05/16 revealed EF 40-45%. Global hyperkinesis. Left atrium dilated. Mild TR. Heart catheterization 05/[address] Valentin - Kem LAD culprit vessel, 60% RCA and 50-60% OM bare metal stent to LAD. Recommended DAP 12-15 months the patient's anemia tolerates Continue aspirin and Plavix On schedule Nitropaste 2 inches every 6 And currently on Norvasc 5 mill grams daily, Coreg 12.5 mg twice a day for hypertension./Home medications Cardiology Dr. Valentin Chest x-ray revealed a right less than left infiltrate/edema. Source of dyspnea likely secondary to massive base of left tongue with trachea deviation Ordered bilateral lower extremity Dopplers 05/28 - left deep/spatial vein thrombus, right superficial vein thrombus - Currently on DAP. We'll discuss with cardiology recommended Eliquis 2.5 twice a day GI: Likely okay for clears/renal diet if passed swallow evaluation today. Await ENT evaluation prior to initiation. Protonix for GI prophylaxis RENAL: ESRD on hemodialysis History of nephrolithiasis Nephrology Dr. Miramontes. Scheduled on dialysis Sunday/Sunday and Sunday -3 L yesterday a plan for 1 PM today ID: LLL healthcare associated pneumonia Right lower lobe pneumonia Left tongue base mass Day #4 cefepime and Flagyl also give dose of vancomycin Pertinent cultures 05/26 - blood cultures 2 -no growth 05/26 - urine - no growth HEME: Anemia of chronic kidney disease Leukocytosis Leukocytosis likely secondary Decadron/infectious? -Previous acute thrombocytopenia has resolved, most likely secondary to Aggrastat ENDO: Secondary hyperparathyroidism Currently off Sensipar 30 mg by mouth daily FEN: Hyperphosphatemia Hyperkalemia Currently on Renvela 800 milligrams 3 times a day for hyperphosphatemia A.m. laboratories pending PROPH: -Bilateral lower extremity SCDs/Eliquis. IV Protonix LINES: Utilize peripheral IVs, central line if needed Critical Care: The total critical care time was 35 minutes. Time to perform other separately billable procedures was not included in the critical care time. Healthcare proxy is Maureen Sorensen [phone] goal is return [facility] Moreno Roe MD May 29, 2016 11:53
[2016-05-29] MEDS ORDERED: SODIUM CHLOR 0.9% 1000 ML INJ 1,000 ML IV SCH (12:00)
--- NOTE | 2016-05-29 12:16 | RADRPT ---
EXAM DATE/TIME: 05/29/2016 09:16 [place] COMPARISON: No previous studies available for comparison. INDICATIONS : Tongue mass follow up. IV CONTRAST: 67 cc Omnipaque 350 (iohexol) IV RADIATION DOSE: 12.67 CTDIvol (mGy) MEDICAL HISTORY : Hypertension. Congestive heart failure. Renal failure, acute.COPD, SURGICAL HISTORY : Coronary artery stent. ENCOUNTER: Subsequent ACUITY: 1 day PAIN SCALE: 3/10 LOCATION: TECHNIQUE: Volumetric scanning of the neck was performed. Using automated exposure control and adjustment of th e mA and/or kV according to patient size, radiation dose was kept as low as reasonably achievable to obtain optimal diagnostic quality images. FINDINGS: Examination of the skull base demonstrates no evidence of deep infiltrating mucosal lesion. The oroph arynx, hypopharynx, glottic and subglottic airway demonstrate no abnormality.There is elongated cysti c mass measuring 4 cm in length and 3 cm in diameter with a central area of calcification. This exten ds medial to the left lobe of the thyroid but does not appear to be arising from it. No deeply infilt rating mucosal mass is identified. The lung apices demonstrate no abnormality. No other nodes are zohaib ntified. CONCLUSION: 1. Cystic mass in the left neck as described above of uncertain etiology. No discrete mucosal lesion is identified. This would be accessible to percutaneous biopsy. Artemio Rashid MD on May 29, 2016 at 11:56 Board Certified Radiologist. This report was verified electronically.
--- NOTE | 2016-05-29 14:14 | PD.CARD.PN ---
Subjective Subjective Remarks alert in nad Objective Vital Signs / I&O Vital Signs Date Time Temp Pulse Resp B/P Pulse Ox O2 Delivery O2 Flow Rate FiO2 05/29/16 14:00 68 05/29/16 12:00 100 Nasal Cannula 4.00 05/29/16 12:00 76 05/29/16 12:00 98.8 76 22 146/65 100 05/29/16 10:00 69 05/29/16 09:57 95 Nasal Cannula 4.00 05/29/16 08:00 80 05/29/16 08:00 98.1 71 15 142/65 100 05/29/16 08:00 100 Nasal Cannula 4.00 05/29/16 06:00 80 05/29/16 04:00 98.4 79 22 144/67 99 05/29/16 04:00 79 05/29/16 04:00 99 Nasal Cannula 4.00 05/29/16 02:00 72 05/29/16 00:00 68 05/29/16 00:00 100 Nasal Cannula 4.00 05/29/16 00:00 98.4 68 14 128/72 100 05/28/16 22:00 69 05/28/16 21:28 100 Nasal Cannula 4.00 05/28/16 20:00 71 05/28/16 20:00 100 Nasal Cannula 4.00 05/28/16 20:00 98.4 71 14 125/58 100 05/28/16 16:00 99 Nasal Cannula 4.00 05/28/16 16:00 97.4 68 16 123/64 98 05/28/16 16:00 68 I/O 05/28/16 05/28/16 05/28/16 05/29/16 05/29/16 05/29/16 07:00 15:00 23:00 07:00 15:00 23:00 Intake Total 288 ml 349 ml 270 ml 181 ml Output Total 50 ml 250 ml 70 ml 50 ml Balance 238 ml 99 ml 200 ml 131 ml Intake Oral 50 ml 100 ml 50 ml 50 ml IV Total 238 ml 249 ml 220 ml 131 ml Output Urine Total 50 ml 250 ml 70 ml 50 ml Physical Exam GENERAL: SKIN: Warm and dry. HEAD: Normocephalic. EYES: No scleral icterus. No injection or drainage. NECK: Supple, trachea midline. No JVD or lymphadenopathy. CARDIOVASCULAR: Regular rate and rhythm without murmurs, gallops, or rubs. RESPIRATORY: Breath sounds equal bilaterally. No accessory muscle use. GASTROINTESTINAL: Abdomen soft, non-tender, nondistended. MUSCULOSKELETAL: No cyanosis, or edema. BACK: Nontender without obvious deformity. No CVA tenderness. Laboratory Laboratory Tests Test 05/28/16 05/29/16 16:12 06:14 Activated Partial 24.7 SEC Thromboplast Time White Blood Count 17.5 TH/MM3 Red Blood Count 3.07 MIL/MM3 Hemoglobin 9.5 GM/DL Hematocrit 28.0 % Mean Corpuscular Volume 91.2 FL Mean Corpuscular Hemoglobin 31.0 PG Mean Corpuscular Hemoglobin 34.0 % Concent Red Cell Distribution Width 18.4 % Platelet Count 421 TH/MM3 Mean Platelet Volume 7.3 FL Neutrophils (%) (Auto) 95.5 % Lymphocytes (%) (Auto) 1.4 % Monocytes (%) (Auto) 2.7 % Eosinophils (%) (Auto) 0.0 % Basophils (%) (Auto) 0.4 % Neutrophils # (Auto) 16.7 TH/MM3 Lymphocytes # (Auto) 0.2 TH/MM3 Monocytes # (Auto) 0.5 TH/MM3 Eosinophils # (Auto) 0.0 TH/MM3 Basophils # (Auto) 0.1 TH/MM3 CBC Comment DIFF FINAL Differential Comment Sodium Level 136 MEQ/L Potassium Level 5.2 MEQ/L Chloride Level 95 MEQ/L Carbon Dioxide Level 28.7 MEQ/L Anion Gap 12 MEQ/L Blood Urea Nitrogen 98 MG/DL Creatinine 6.53 MG/DL Estimat Glomerular Filtration 7 ML/MIN Rate Random Glucose 126 MG/DL Calcium Level 8.3 MG/DL Phosphorus Level 5.7 MG/DL Albumin 2.5 GM/DL Assessment and Plan Problem List: (1) Atrial fibrillation, new onset (2) Aortic stenosis (3) Hypertension (4) Hyperlipidemia (5) Depression (6) CAD (coronary artery disease) (7) Chest pain (8) Cardiomyopathy Assessment and Plan 1.) CAD - no chest pain x 4 days, s/p pci bms mid lad, small diagonal vessel jailed but patent, continue dapt as plt>50; chest pain resolved, elevated troponin due to jailed 90% ostial small dx vessel and esrd, do not think this is a life threatening stenosis or that requires admission, o/w patient is completely revascularized 2.) PAF - in nsr, assymptomatic, eliquis held d/t thrombocytopenia 3.) PEA - suspect d/t apnea from fentanyl and/or versed, trop elevated due to pea and esrd, trending down pci; patient is hospice, do not rec recurrent cath due to high risk d/t thrombocytopenia, pea from conscience sedation from fentanyl/versed and inability to access diagonal vessel d/t vessel tortuosity and 90 degreee angle off lad; rec palliative care consult, prn ntg 4.) Ok to dc from cv standpoint, f/u with me hellen; rec hospice, patient undecided 6.) thrombocytopenia - improved, = 129k today 6.) Stridor - possibly related to narcotics, known allergy to dilaudid, mso4, pea/apnea with fentanyl, had stridor with percocet, rec dc percocet 7.) Anemia - hgb improved 8.) Ambulate, scd's, pt consult d/w nurse 9) Hypoxia - improving, rec more fluid removal w dialysus, d/w Dr Roe 10.) DVT - on eliquis, 11.) Rec hospice, d/w patient, Dr Roe and nurse Problem Qualifiers (1) Hypertension: Qualified Code: I10 - Essential hypertension (2) CAD (coronary artery disease): Qualified Code: I25.10 - Coronary artery disease due to calcified coronary lesion (3) Chest pain: Qualified Code: R07.2 - Precordial pain Zohaib Valentin MD May 29, 2016 14:14
[2016-05-29] MEDS: EPOETIN ALFA 10,000 UNITS/ML VIAL IV PRN (16:23)
--- NOTE | 2016-05-29 17:44 | HHI.PR ---
Subjective Remarks Stable on O2 Nasal cannula. No stridor. Normal voice. Passed swallow evaluation. . Objective Vital Signs Date Time Temp Pulse Resp B/P Pulse Ox O2 Delivery O2 Flow Rate FiO2 05/29/16 16:00 100 Nasal Cannula 4.00 05/29/16 16:00 98.4 66 14 148/69 100 05/29/16 16:00 66 05/29/16 14:00 68 05/29/16 12:00 100 Nasal Cannula 4.00 05/29/16 12:00 76 05/29/16 12:00 98.8 76 22 146/65 100 05/29/16 10:00 69 05/29/16 09:57 95 Nasal Cannula 4.00 05/29/16 08:00 80 05/29/16 08:00 98.1 71 15 142/65 100 05/29/16 08:00 100 Nasal Cannula 4.00 05/29/16 06:00 80 05/29/16 04:00 98.4 79 22 144/67 99 05/29/16 04:00 79 05/29/16 04:00 99 Nasal Cannula 4.00 05/29/16 02:00 72 05/29/16 00:00 68 05/29/16 00:00 100 Nasal Cannula 4.00 05/29/16 00:00 98.4 68 14 128/72 100 05/28/16 22:00 69 05/28/16 21:28 100 Nasal Cannula 4.00 05/28/16 20:00 71 05/28/16 20:00 100 Nasal Cannula 4.00 05/28/16 20:00 98.4 71 14 125/58 100 I/O 05/28/16 05/28/16 05/28/16 05/29/16 05/29/16 05/29/16 07:00 15:00 23:00 07:00 15:00 23:00 Intake Total 288 ml 349 ml 270 ml 181 ml 566 ml Output Total 50 ml 250 ml 70 ml 50 ml 100 ml Balance 238 ml 99 ml 200 ml 131 ml 466 ml Intake Oral 50 ml 100 ml 50 ml 50 ml 240 ml IV Total 238 ml 249 ml 220 ml 131 ml 326 ml Output Urine Total 50 ml 250 ml 70 ml 50 ml 100 ml # Bowel Movements 0 Result Diagram: 05/29/1661305/29/[address] of neck shows cystic mass adjacent to left thyroid. Assessment and Plan Assessment and Plan Much improved today. CT neck shows no mucosal lesion. There is a cystic mass adjacent to the left thyroid. WBC down significantly to 17.5. Passed swallow evaluation. Inflammatory mass better. This may have been a thyroid cyst that became infected. No stridor, excellent airway. OK to eat per ENT. Suggest we taper and stop steroids. Continue antibiotics at least full week. I cannot palpate the cyst at bedside. This is not consistent with an abscess. Neck is too soft and response to meds too good. Can consider Ultrasound guided needle aspiration for diagnosis, however it is unlikely this will change any management and a complication would hurt her quality of life. Especially in view of considering hospice, best to finish antibiotics and continue to move out of hospital. Will follow as needed. Hector Martinez MD May 29, 2016 17:44
[2016-05-29] MEDS: PANTOPRAZOLE SODIUM 40 MG VIAL IV PUSH SCH (18:14)
[2016-05-30] VITALS (11 sets, daily range): BP systolic 113–149; BP diastolic 56–69; PULSE 62–77; RESP 12–17; TEMP 98.2–98.6; O2SAT 95–100
[2016-05-30] MEDS: metroNIDAZOLE 500 MG INJ 100 ML IV SCH ×3 (01:28→16:42)
[2016-05-30] MEDS: diphenhydrAMINE HCL 50 MG/ML VIAL IV PUSH SCH ×4 (01:29→21:18)
[2016-05-30] MEDS: RESP: ALBUTEROL 2.5 MG/IPRATROPIUM 0.5 MG NEB (SCH) NEB ×3 (03:19→15:51)
[2016-05-30] MEDS: NITROGLYCERIN 2% OINT 1 GM PACKET TOPICAL SCH ×4 (03:42→21:19)
[2016-05-30] MEDS: CHLORHEXIDINE GLUCONATE 2 % 1 PACK (2 CLOTHS)(taper/protocol) TOPICAL SCH (03:43)
[2016-05-30] MEDS: CEFEPIME INJ 1,000 MG in SODIUM CHLORIDE 0.9% INJ 100 ML IV SCH (05:14)
[2016-05-30 05:47] LABS: HEMATOCRIT 28.4 % (35.0-46.0); MEAN CELL VOLUME 92.3 FL (80.0-100.0); MEAN CORPUSCULAR HEMOGLOBIN 30.7 PG (27.0-34.0); MEAN CORPUSCULAR HGB CONC 33.3 % (32.0-36.0); PLATELET COUNT 391 TH/MM3 (150-450); RED BLOOD COUNT 3.08 MIL/MM3 (4.00-5.30); RED CELL DISTRIBUTION WIDTH 18.1 % (11.6-17.2); WHITE BLOOD COUNT 12.3 TH/MM3 (4.0-11.0)
[2016-05-30 05:49] LABS: BICARBONATE 28.9 MEQ/L (21.0-32.0); POTASSIUM 4.3 MEQ/L (3.5-5.1)
[2016-05-30] MEDS: INSULIN ASPART SUPPLEMENTAL SCALE SQ SCH ×3 (05:54→16:42)
[2016-05-30 06:15] LABS: REVIEW FLAG FINAL
[2016-05-30] MEDS: SEVELAMER CARBONATE 800 MG TAB PO SCH ×3 (09:00→16:42)
[2016-05-30] MEDS: MUPIROCIN 2% OINT 1 APPLIC/GM SYR EACH NARE SCH ×2 (09:00→21:19)
--- NOTE | 2016-05-30 09:23 | HHI.CCPN ---
Subjective Remarks/Hospital Course This is an 85yF with ESRD, COPD, CHF history who presented to the hospital with hyperglycemia and NSTEMI. She was taken to the research laboratory technician today for revascularization. She had a BMS placed to the distal LAD with small unrevascularizable diag vessels. She received versed 1mg iv and fentanyl 25mcg iv. At the conclusion of the case, she became unresponsive, hypoxic, and then sustained a PEA arrest requiring ACLS. Anesthesia came and intubated the patient. I was called by Dr. Valentin after ROSC was obtained. He states he felt that this was a respiratory arrest secondary to sedation. I immediately went to evalute the patient. She was still in the research laboratory technician. she was awake, non -focal, following commands, not on sedation. I had a discussion with Dr. Valentin. given that it was a very tight LAD lesion and difficult to PCI, we agreed to transfer the patient to CVICU and obtain STAT TTE to rule out tamponade or coronary rupture as a cause for her PEA arrest. This was done at bedside and was negative for acute life-threatening disease. At this point, because the patient met criteria, she was extubated to nasal cannula. Her arterial sheath was pulled. Critical Care medicine is consulted to evaluate and manage her post-cardiac arrest care. 05/17: Patient extubated yesterday. Overnight had intermittent stridor placed on Decadron and when necessary racemic epinephrine. Good response to racemic epinephrine. On my exam there was no stridor patient is alert oriented. CBC showed platelet count 5000. Patient is on Aggrastat. Doubt accuracy of the platelet count-it was 276,000 yesterday. Stat repeat labs sent 05/26/16: Reconsult Critical care consulted by primary service as the patient having intermittent stridor. Hospitalist documentation indicated that she had a sensation of throat shutting down. Patient is ALT CODE, but intubation is permitted. I evaluated the patient in room 718. Patient clearly has inspiratory stridor, with periods of hypopnea. She has received Solu-Medrol and racemic epinephrine. On exam she complains about tenderness to the left lower neck, there is no palpable mass. I will transfer her emergently to the ICU as the patient may need intubation. I've discussed with the food concession manager for [facility] (Belen Braden). CT neck with contrast ordered to evaluate neck mass or inflammation/swelling. It was also noted that the patient's white count increased from 13.8 to 32.8, CXR shows new LLL infiltrate 05/27: Currently on 6 L nasal cannula. Voice less stridorous. Currently nothing by mouth. No bowel movement. 05/28: Resting comfortably in bed. On 5 L nasal cannula. No stridor. Nothing by mouth. No bowel movement. 05/29: Afebrile. Plan for hemodialysis at 1 PM. States she wants to go home. Denies chest pain. No stridor. Subjective 05/30: Afebrile. Appears in better spirits today. Hemodynamically stable. Passed swallow evaluation. Objective Vital Signs Date Time Temp Pulse Resp B/P Pulse Ox O2 Delivery O2 Flow Rate FiO2 05/30/16 08:00 98 Room Air 05/30/16 06:00 69 05/30/16 04:00 2.00 05/30/16 04:00 98.2 15 139/65 05/27/16 21:00 35 Intake and Output 05/29/16 05/29/16 05/29/16 07:59 15:59 23:59 Intake Total 181 ml 566 ml 624 ml Output Total 50 ml 100 ml 2125 ml Balance 131 ml 466 ml -1501 ml Result Diagram: 05/30/16 0428 05/30/16 0428 Other Results Microbiology Date/Time Procedure Status Source Growth 05/26/16 19:54 Aerobic Blood Culture - Preliminary Resulted Blood Peripheral NO GROWTH IN 3 DAYS 05/26/16 19:54 Anaerobic Blood Culture - Final Resulted Blood Peripheral ONLY AEROBIC CULTURE ORDERED 05/26/16 18:40 Urine Culture - Final Complete Urine Catheterized Urine NO GROWTH IN 48 HOURS. Imaging Last Impressions Neck CT 05/29/16 06 Signed Impressions: Service Date/Time: Sunday, May 29, 2016 09:16 - CONCLUSION: 1. Cystic mass in the left neck as described above of uncertain etiology. No discrete mucosal lesion is identified. This would be accessible to percutaneous biopsy. Artemio Rashid MD Chest X-Ray 05/28/16 0600 Signed Impressions: Service Date/Time: Saturday, May 28, 2016 04:34 - CONCLUSION: Unchanged bibasilar infiltrates. Deyvi Celeste Jr., MD Lower Extremity Ultrasound 05/27/16 0000 Signed Impressions: Service Date/Time: Friday, May 27, 2016 18:43 - CONCLUSION: 1. Focal, nonocclusive thrombus in the proximal right superficial femoral vein and the bifurcation of the deep and superficial femoral veins on the left. 2. Deep venous systems are otherwise patent bilaterally Ramesh Hunter MD Head CT 05/26/16 0000 Signed Impressions: Service Date/Time: Thursday, May 26, 2016 18:02 - CONCLUSION: 1. Cerebral atrophy and chronic ischemic small vessel vasculopathy. Altaf Stubbs MD Aorta CTA 05/10/16 0000 Signed Impressions: Service Date/Time: Tuesday, May 10, 2016 15:13 - CONCLUSION: 1. There is no evidence of aortic dissection. The widening of the mediastinum seen on the chest x-ray appears to represent a combination of pleural fluid and atelectatic lung along the descending thoracic aorta. 2. There are COPD changes within the pulmonary parenchyma. 3. There are small bilateral effusions. 4. The abdominal aorta and iliac vessels are intact. Yehuda Hanna MD Objective Remarks GENERAL: 85-year-old female, critically ill resting in bed in no acute distress SKIN: Warm and dry. No rash. Right upper extremity AV fistula positive thrill HEAD: Atraumatic. Normocephalic. EYES: Pupils equal and round about 2 mm bilaterally and reactive. No scleral icterus. No injection or drainage. ENT: No nasal bleeding or discharge. NECK: Trachea approximately midline. No JVD. With no stridor. Left lower neck mass less swollen and fluctuant and soft. CARDIOVASCULAR: Regular rate and rhythm. S1, S2. No S4. 1/6 systolic murmur at apex RESPIRATORY: Breath sounds equal and symmetric. Normal symmetrical excursion GASTROINTESTINAL: Abdomen soft, non-tender, nondistended. Hypoactive bowel sounds are appreciated MUSCULOSKELETAL: Extremities without significant peripheral edema. NEUROLOGICAL: Motor grossly within normal limits. Strength is equal symmetric. Normal sensation. Procedures Cardiac Catheterization on 05/16/16 - as per report bare metal stent placed to the mid LAD. Intubation and mechanical ventilation due to PEA arrest after Cardiac Catheterization. A/P Assessment and Plan NEURO/PSYCH: Metabolic encephalopathy Depression Chronic benzodiazepine use Glaucoma On latanoprost 0.004% 1 drop each eye at night when necessary Holding Vilbyrd 40 mg by mouth daily for depression Holding Xanax 0.25 mg by mouth 3 times a day as needed for anxiety Currently on BuSpar 5 mill grams by mouth daily for depression Limit sedatives especially narcotics RESP: Upper airway obstruction/stridor LLL pneumonia/right lower lobe pneumonia History of FAYE - currently not on CPAP Ulnar edema CT of the neck revealed a mass at the base of left tongue 2.5 x 2.4 cm with deviation of trachea to the right. Vocal cords swollen. Some narrowing the trachea. Evaluated by Dr. Martinez/ENT. Peaked CT neck revealed a 4 x 3 cm appears cystic lesion near to but not coming from left thyroid. Dr. Martinez recommends observation with weaning of steroids and completed 1 week of antibiotic therapy. Fall palpation. Nasal cannula/simple mask to maintain saturations greater than equal to 92% BiPAP PRN. Broncho dilator therapy every 6 hours scheduled Scheduled Decadron 6 mg IV q12, Racemic epinephrine PRN. Broad-spectrum antibiotics as below with cefepime and Flagyl Patient is alternate CODE/intubation only CV: s/p PEA Arrest NSTEMI s/p PCI with BMS to LAD Systolic heart failure Coronary artery disease Left PEEP/superficial femoral vein thrombus, right superficial vein thrombus Echo 05/16 revealed EF 40-45%. Global hyperkinesis. Left atrium dilated. Mild TR. Heart catheterization 05/[address] Valentin - Kem LAD culprit vessel, 60% RCA and 50-60% OM bare metal stent to LAD. Recommended DAP 12-15 months the patient's anemia tolerates Continue aspirin and Plavix On schedule Nitropaste 2 inches every 6 And currently on Norvasc 5 mill grams daily, Coreg 12.5 mg twice a day for hypertension./Home medications Cardiology Dr. Valentin Chest x-ray revealed a right less than left infiltrate/edema. Source of dyspnea likely secondary to massive base of left tongue with trachea deviation Ordered bilateral lower extremity Dopplers 05/28 - left deep/spatial vein thrombus, right superficial vein thrombus - Currently on DAP. We'll discuss with cardiology recommended Eliquis 2.5 twice a day GI: Likely okay for clears/renal diet if passed swallow evaluation today. With mechanical fall/thickened liquids Protonix for GI prophylaxis RENAL: ESRD on hemodialysis History of nephrolithiasis Nephrology Dr. Miramontes. Scheduled on dialysis Sunday/Sunday and Sunday -3 L yesterday a plan for 1 PM today ID: LLL healthcare associated pneumonia Right lower lobe pneumonia Left tongue base mass Day #5 cefepime and Flagyl also give dose of vancomycin Pertinent cultures 05/26 - blood cultures 2 -no growth 05/26 - urine - no growth HEME: Anemia of chronic kidney disease Leukocytosis Leukocytosis likely secondary Decadron/infectious? -Previous acute thrombocytopenia has resolved, most likely secondary to Aggrastat ENDO: Secondary hyperparathyroidism Currently off Sensipar 30 mg by mouth daily FEN: Hyperphosphatemia Hyperkalemia Currently on Renvela 800 milligrams 3 times a day for hyperphosphatemia A.m. laboratories pending PROPH: -Bilateral lower extremity SCDs/Eliquis. IV Protonix LINES: Utilize peripheral IVs, central line if needed Critical Care: The total critical care time was 35 minutes. Time to perform other separately billable procedures was not included in the critical care time. Healthcare proxy is Maureen Sorensen [phone] goal is [facility] Moreno Roe MD May 30, 2016 09:23
--- NOTE | 2016-05-30 09:31 | PD.TRANSFR ---
Transfer Summary Admission Date May 10, 2016 at 11:41 Admitting Diagnosis chest pain, anemia,CAD,hospice Diagnoses: (1) Unstable angina Diagnosis: Principal (2) Paroxysmal atrial fibrillation Diagnosis: Principal (3) Mediastinal widening Diagnosis: Principal (4) COPD (chronic obstructive pulmonary disease) Diagnosis: Principal (5) ESRD (end stage renal disease) (6) Severe anemia Diagnosis: Principal (7) Hypertension Diagnosis: Principal (8) Hyponatremia (9) Hyperkalemia Diagnosis: Principal (10) Change in mental status Diagnosis: Principal (11) Hypotension Diagnosis: Principal (12) Respiratory distress Diagnosis: Principal (13) Thrombocytopenia (14) Depression (emotion) Diagnosis: Principal (15) PEA (Pulseless electrical activity) Diagnosis: Principal (16) Benign thyroid cyst Diagnosis: Principal Significant Findings CT neck with contrast - 4 x 3 cm thyroid cyst Transfer Summary/Subjective Is an 85-year-old female. She was transferred late Sunday night 05/[address] neck revealed possible mass at tongue base. Evaluated by Dr. Martinez pleases a simple thyroid cyst that she treated/watchfully with antibiotics and steroids versus biopsy/drainage. Risk might outweigh benefits however this point. Patient is currently on aspirin, Plavix and Ellik S4 underlying cardiac disease/BMS and left femoral DVT Objective Vital Signs Date Time Temp Pulse Resp B/P Pulse Ox O2 Delivery O2 Flow Rate FiO2 05/30/16 08:00 98 Room Air 05/30/16 06:00 69 05/30/16 04:00 2.00 05/30/16 04:00 98.2 15 139/65 05/27/16 21:00 35 Intake and Output 05/29/16 05/29/16 05/29/16 07:59 15:59 23:59 Intake Total 181 ml 566 ml 624 ml Output Total 50 ml 100 ml 2125 ml Balance 131 ml 466 ml -1501 ml Result Diagram: 05/30/1642705/30/16427 Imaging Last Impressions Neck CT 05/29/16599 Signed Impressions: Service Date/Time: Sunday, May 29, 2016 09:16 - CONCLUSION: 1. Cystic mass in the left neck as described above of uncertain etiology. No discrete mucosal lesion is identified. This would be accessible to percutaneous biopsy. Artemio Rashid MD Chest X-Ray 4/23/17 0600 Signed Impressions: Service Date/Time: Saturday, May 28, 2016 04:34 - CONCLUSION: Unchanged bibasilar infiltrates. Deyvi Celeste Jr., MD Lower Extremity Ultrasound 05/27/16 0000 Signed Impressions: Service Date/Time: Friday, May 27, 2016 18:43 - CONCLUSION: 1. Focal, nonocclusive thrombus in the proximal right superficial femoral vein and the bifurcation of the deep and superficial femoral veins on the left. 2. Deep venous systems are otherwise patent bilaterally Ramesh Hunter MD Head CT 05/26/16 0000 Signed Impressions: Service Date/Time: Thursday, May 26, 2016 18:02 - CONCLUSION: 1. Cerebral atrophy and chronic ischemic small vessel vasculopathy. Altaf Stubbs MD Aorta CTA 05/10/16 0000 Signed Impressions: Service Date/Time: Tuesday, May 10, 2016 15:13 - CONCLUSION: 1. There is no evidence of aortic dissection. The widening of the mediastinum seen on the chest x-ray appears to represent a combination of pleural fluid and atelectatic lung along the descending thoracic aorta. 2. There are COPD changes within the pulmonary parenchyma. 3. There are small bilateral effusions. 4. The abdominal aorta and iliac vessels are intact. Yehuda Hanna MD Objective Remarks GENERAL: 85-year-old female, critically ill resting in bed in no acute distress SKIN: Warm and dry. No rash. Right upper extremity AV fistula positive thrill HEAD: Atraumatic. Normocephalic. EYES: Pupils equal and round about 2 mm bilaterally and reactive. No scleral icterus. No injection or drainage. ENT: No nasal bleeding or discharge. NECK: Trachea approximately midline. No JVD. With no stridor. Left lower neck mass less swollen and fluctuant and soft. CARDIOVASCULAR: Regular rate and rhythm. S1, S2. No S4. 1/6 systolic murmur at apex RESPIRATORY: Breath sounds equal and symmetric. Normal symmetrical excursion GASTROINTESTINAL: Abdomen soft, non-tender, nondistended. Hypoactive bowel sounds are appreciated MUSCULOSKELETAL: Extremities without significant peripheral edema. NEUROLOGICAL: Motor grossly within normal limits. Strength is equal symmetric. Normal sensation. Procedures Cardiac Catheterization on 05/16/16 - as per report bare metal stent placed to the mid LAD. Intubation and mechanical ventilation due to PEA arrest after Cardiac Catheterization. A/P Assessment and Plan NEURO/PSYCH: Metabolic encephalopathy Depression Chronic benzodiazepine use Glaucoma On latanoprost 0.004% 1 drop each eye at night when necessary Holding Vilbyrd 40 mg by mouth daily for depression Holding Xanax 0.25 mg by mouth 3 times a day as needed for anxiety Currently on BuSpar 5 mill grams by mouth daily for depression Limit sedatives especially narcotics RESP: Upper airway obstruction/stridor LLL pneumonia/right lower lobe pneumonia History of FAYE - currently not on CPAP Ulnar edema CT of the neck revealed a mass at the base of left tongue 2.5 x 2.4 cm with deviation of trachea to the right. Vocal cords swollen. Some narrowing the trachea. Evaluated by Dr. Martinez/ENT. Peaked CT neck revealed a 4 x 3 cm appears cystic lesion near to but not coming from left thyroid. Dr. Martinez recommends observation with weaning of steroids and completed 1 week of antibiotic therapy. Fall palpation. Nasal cannula/simple mask to maintain saturations greater than equal to 92% BiPAP PRN. Broncho dilator therapy every 6 hours scheduled Scheduled Decadron 6 mg IV q12, Racemic epinephrine PRN. Broad-spectrum antibiotics as below with cefepime and Flagyl Patient is alternate CODE/intubation only CV: s/p PEA Arrest NSTEMI s/p PCI with BMS to LAD Systolic heart failure Coronary artery disease Left PEEP/superficial femoral vein thrombus, right superficial vein thrombus Echo 05/16 revealed EF 40-45%. Global hyperkinesis. Left atrium dilated. Mild TR. Heart catheterization 05/[address] Valentin - Kem LAD culprit vessel, 60% RCA and 50-60% OM bare metal stent to LAD. Recommended DAP 12-15 months the patient's anemia tolerates Continue aspirin and Plavix On schedule Nitropaste 2 inches every 6 And currently on Norvasc 5 mill grams daily, Coreg 12.5 mg twice a day for hypertension./Home medications Cardiology Dr. Valentin Chest x-ray revealed a right less than left infiltrate/edema. Source of dyspnea likely secondary to massive base of left tongue with trachea deviation Ordered bilateral lower extremity Dopplers 05/28 - left deep/spatial vein thrombus, right superficial vein thrombus - Currently on DAP. We'll discuss with cardiology recommended Eliquis 2.5 twice a day GI: Likely okay for clears/renal diet if passed swallow evaluation today. With mechanical fall/thickened liquids Protonix for GI prophylaxis RENAL: ESRD on hemodialysis History of nephrolithiasis Nephrology Dr. Miramontes. Scheduled on dialysis Sunday/Sunday and Sunday -3 L yesterday a plan for 1 PM today ID: LLL healthcare associated pneumonia Right lower lobe pneumonia Left tongue base mass Day #5 cefepime and Flagyl also give dose of vancomycin Pertinent cultures 05/26 - blood cultures 2 -no growth 05/26 - urine - no growth HEME: Anemia of chronic kidney disease Leukocytosis Leukocytosis likely secondary Decadron/infectious? -Previous acute thrombocytopenia has resolved, most likely secondary to Aggrastat ENDO: Secondary hyperparathyroidism Currently off Sensipar 30 mg by mouth daily FEN: Hyperphosphatemia Hyperkalemia Currently on Renvela 800 milligrams 3 times a day for hyperphosphatemia A.m. laboratories pending PROPH: -Bilateral lower extremity SCDs/Eliquis. IV Protonix LINES: Utilize peripheral IVs, central line if needed Critical Care: The total critical care time was 35 minutes. Time to perform other separately billable procedures was not included in the critical care time. Healthcare proxy is Maureen Sorensen [phone] goal is return to [facility] Moreno Roe MD May 30, 2016 09:31
--- NOTE | 2016-05-30 09:33 | HHI.NPPN ---
Subjective General Problems: Anemia Renal Failure: Chronic, End Stage Renal Disease Interval History Dialyzed yesterday. She is afebrile with improving leukocytosis. Tolerating diet. No acute renal concerns. (Lelo Chong) Review of Systems General Constitutional: Fatigue (Lelo Chong) Ears, Nose, & Throat Ears, Nose & Throat: Sore Throat, Hoarse (Lelo Chong) Cardiovascular Cardiac: Chest Pain (Lelo Chong) Objective Data Data 05/29/16 05/30/16 19:00 07:00 Intake Total 566 ml 1194 ml Output Total 2100 ml 125 ml Balance -1534 ml 1069 ml Intake Oral 240 ml 480 ml IV Total 326 ml 714 ml Output Urine Total 100 ml 125 ml Hemodialysis 2000 ml # Bowel Movements 0 0 Vital Signs Date Time Temp Pulse Resp B/P Pulse Ox O2 Delivery O2 Flow Rate FiO2 05/30/16 08:00 98 Room Air 05/30/16 06:00 69 05/30/16 04:00 68 05/30/16 04:00 95 Nasal Cannula 2.00 05/30/16 04:00 98.2 68 15 139/65 95 05/30/16 02:00 67 05/30/16 00:00 98.4 72 15 119/58 99 05/30/16 00:00 72 05/30/16 00:00 100 Nasal Cannula 2.00 05/29/16 22:00 76 05/29/16 20:32 100 Nasal Cannula 4.00 05/29/16 20:00 70 05/29/16 20:00 98.5 70 12 144/69 100 05/29/16 20:00 100 Nasal Cannula 4.00 05/29/16 18:00 72 05/29/16 16:00 100 Nasal Cannula 4.00 05/29/16 16:00 98.4 66 14 148/69 100 05/29/16 16:00 66 05/29/16 14:00 68 05/29/16 12:00 100 Nasal Cannula 4.00 05/29/16 12:00 76 05/29/16 12:00 98.8 76 22 146/65 100 05/29/16 10:00 69 05/29/16 09:57 95 Nasal Cannula 4.00 (Lelo Chong) -: 05/30/16 0428 05/30/16 0428 Imaging Last [address] 05/29/16599 Signed Impressions: Service Date/Time: Sunday, May 29, 2016 09:16 - CONCLUSION: 1. Cystic mass in the left neck as described above of uncertain etiology. No discrete mucosal lesion is identified. This would be accessible to percutaneous biopsy. Artemio Rashid MD Chest X-Ray 05/28/16599 Signed Impressions: Service Date/Time: Saturday, May 28, 2016 04:34 - CONCLUSION: Unchanged bibasilar infiltrates. Deyvi Celeste Jr., MD (Lelo Chong) Physical Exam General Appearance: No Acute Distress, Comfortable, Anxious, Malnourished (Lelo Chong) Eyes Eye Exam: Pupils Equal (Lelo Chong) Throat Throat Exam: Oral Mucosa [place] & Moist (Lelo Chong) Neck Neck Exam: Neck Supple (Lelo Chong) Pulmonary Resp Exam: Breath Sounds Equal, No Distress, Diminished Breath Sounds, Poor Inspiratory Effort (Lelo Chong) Cardiology CV Exam: Regular, Normal Sinus Rhythm, Good Perfusion, Dyspnea on Exertion ( Lelo Chong) Gastrointestinal/Abdomen GI Exam: Soft, Non-Tender, Bowel Sounds Present (Lelo Chong) Musculoskeletal MS Exam: Joints Intact, Normal Tone (Lelo Chong) Integumentary Skin Exam: Clear, Warm, Dry, Intact (Lelo Chong) Extremeties Extremities Exam: No Edema, Pedal Pulses Palpable Extremeties Remarks right AVF (Lelo Chong) Neurologic Neuro Exam: Alert, Awake, Oriented, Speech Clear, Moving All Extremities ( Lelo Chong) Psychiatric Psych Exam: Appropriate Responses (Lelo Chong) Assessment/Plan Discussed Condition With: Patient Assessment Summary: Anemia of CKD, CHF, Hypertension, End Stage Renal Disease Problem List: (1) ESRD (end stage renal disease) Plan: HD to be continued MWF. She had 2L UF yesterday repeat K normalized avoid gadolinium, stop IVF currently infusing has functioning fistula for dialysis oliguric at baseline no acute renal concerns, we are okay with discharge when cleared by all physicians to resume outpatient HD arrangement (2) Stridor Plan: ENT following, CT taken, results reviewed continue steroid taper, antibiotics clinically improving; but needle guided biopsy is a possibility depending on patient's goals of care (3) CAD (coronary artery disease) Plan: adjust UF with dialysis as tolerated/required cardiology following sp cath with stent to LAD, EF 45% no further PCI per Dr. Valentin (4) Anemia Plan: Hemoglobin has improved. Continue Epogen. (5) Atrial fibrillation Plan: Rate controlled cardiology following (6) Thrombocytopenia Plan: acute, improving, due to Aggrastat antiplatelets have been resumed (Lelo Chong) Plan patient was seen and examined. CT scan findings noted. Overall improved. Cleared for discharge from renal standpoint. (Roland Miramontes MD) Problem Qualifiers (1) CAD (coronary artery disease): Qualified Code: I25.10 - Coronary artery disease due to calcified coronary lesion (2) Anemia: Lelo Chong May 30, 2016 09:33 Roland Miramontes MD May 30, 2016 10:18
[2016-05-30] MEDS: DEXAMETHASONE SOD PHOS 4 MG/ML VIAL IV SCH ×2 (09:55→21:17)
[2016-05-30] MEDS: MEGESTROL ACETATE SUSP 400 MG/10 ML CUP PO SCH (09:57)
[2016-05-30] MEDS: CLOPIDOGREL 75 MG TAB PO SCH (10:00)
[2016-05-30] MEDS: DOCUSATE SODIUM 100 MG CAP PO SCH ×2 (10:00→21:18)
[2016-05-30] MEDS: APIXABAN 2.5 MG TABLET PO SCH ×2 (10:01→21:19)
[2016-05-30] MEDS: CARVEDILOL 12.5 MG TAB PO SCH ×2 (10:01→21:19)
[2016-05-30] MEDS: busPIRone HCL 5 MG TAB PO SCH (10:01)
[2016-05-30] MEDS: amLODIPine BESYLATE 5 MG TAB PO SCH (10:01)
[2016-05-30] MEDS: ASPIRIN EC 81 MG TABEC PO SCH (10:01)
[2016-05-30] MEDS: SODIUM CHLORIDE 0.9% FLUSH 10 ML FLUSH SCH ×2 (10:02→21:20)
--- NOTE | 2016-05-30 11:17 | HHI.FPPN ---
Subjective Remarks pt reports thinking of giving up wants to dc on hospice hellen D/W LICENSE INSPECTOR OUT Objective Vitals Vital Signs Date Time Temp Pulse Resp B/P Pulse Ox O2 Delivery O2 Flow Rate FiO2 05/30/16 08:00 98 Room Air 05/30/16 08:00 69 05/30/16 06:00 69 05/30/16 04:00 68 05/30/16 04:00 95 Nasal Cannula 2.00 05/30/16 04:00 98.2 68 15 139/65 95 05/30/16 02:00 67 05/30/16 00:00 98.4 72 15 119/58 99 05/30/16 00:00 72 05/30/16 00:00 100 Nasal Cannula 2.00 05/29/16 22:00 76 05/29/16 20:32 100 Nasal Cannula 4.00 05/29/16 20:00 70 05/29/16 20:00 98.5 70 12 144/69 100 05/29/16 20:00 100 Nasal Cannula 4.00 05/29/16 18:00 72 05/29/16 16:00 100 Nasal Cannula 4.00 05/29/16 16:00 98.4 66 14 148/69 100 05/29/16 16:00 66 05/29/16 14:00 68 05/29/16 12:00 100 Nasal Cannula 4.00 05/29/16 12:00 76 05/29/16 12:00 98.8 76 22 146/65 100 I/O 05/29/16 05/29/16 05/29/16 05/30/16 05/30/16 05/30/16 07:00 15:00 23:00 07:00 15:00 23:00 Intake Total 181 ml 566 ml 624 ml 570 ml Output Total 50 ml 100 ml 2125 ml 0 ml Balance 131 ml 466 ml -1501 ml 570 ml Intake Oral 50 ml 240 ml 240 ml 240 ml IV Total 131 ml 326 ml 384 ml 330 ml Output Urine Total 50 ml 100 ml 125 ml 0 ml Hemodialysis 2000 ml # Bowel Movements 0 0 0 Result Diagram: 05/30/1642705/30/16427 Objective Remarks GENERAL: SKIN: Warm and dry. HEAD: Atraumatic. Normocephalic. EYES: Pupils equal and round. No scleral icterus. No injection or drainage. ENT: No nasal bleeding or discharge. Mucous membranes pink and moist. NECK: Trachea midline. No JVD. CARDIOVASCULAR: Regular rate and rhythm. RESPIRATORY: No accessory muscle use. Clear to auscultation. Breath sounds equal bilaterally. GASTROINTESTINAL: Abdomen soft, non-tender, nondistended. Hepatic and splenic margins not palpable. MUSCULOSKELETAL: Extremities without clubbing, cyanosis, or edema. No obvious deformities. NEUROLOGICAL: Awake and alert. No obvious cranial nerve deficits. Motor grossly within normal limits. 1 out of 5 muscle strength in the arms and legs. Normal speech. PSYCHIATRIC: Appropriate mood and affect; insight and judgment normal. Medications and IVs Current Medications Medications (Trade) Dose Ordered Sig/Thierry Route Start Time Stop Time Status Last Admin (Xanax) 0.25 mg Q8H PRN PO 05/09/16 17:15 Hold 05/25/16 23:30 (Coreg) 12.5 mg Q12HR PO 05/09/16 21:00 05/30/16 10:01 (Colace) 100 mg BID PO 05/09/16 21:00 05/30/16 10:00 (Renvela) 800 mg TID PO 05/09/16 18:00 05/27/16 08:04 (Xalatan 0.005% Opth Soln) 1 drop HS PRN EACH EYE 05/09/16 17:30 (Tylenol) 650 mg Q4H PRN PO 05/09/16 17:30 05/14/16 01:11 (Zofran Inj) 4 mg Q6H PRN IVP 05/09/16 17:30 (Dulcolax Supp) 10 mg DAILY PRN RECTAL 05/09/16 17:30 (Narcan Inj) 0.4 mg UNSCH PRN IV 05/09/16 17:30 (Megace Liq) 800 mg DAILY PO 05/10/16 09:00 05/30/16 09:57 (Norvasc) 5 mg DAILY PO 05/14/16 09:00 05/30/16 10:01 (Aspirin Chew) 162 mg DAILY PO 05/17/16 09:00 Hold (D50w (Vial) Inj) 25 ml UNSCH PRN IV PUSH 05/17/16 04:45 (Glucagon Inj) 1 mg UNSCH PRN OTHER 05/17/16 04:45 (NovoLOG SUPPLEMENTAL SCALE) 1 Q6H SQ 05/17/16 06:00 05/29/16 23:53 (Nitrostat Sl) 0.4 mg Q5M PRN SL 05/17/16 15:00 05/20/16 04:08 Nitroglycerin 2 inch 2 inch Q6H TOPICAL 05/17/16 16:00 05/30/16 10:03 Sodium Chloride 1,000 ml @ 0 mls/hr Q0M PRN IV 05/19/16 10:08 Sodium Chloride 1,000 ml @ 200 mls/hr Q5H PRN IV 05/19/16 10:08 (NS 1000 ml Inj) 1,000 ml @ 0 mls/hr Q0M PRN IV 05/19/16 10:08 (Mannitol Inj) 12.5 gm UNSCH PRN IV 05/19/16 10:15 (Albumin 25% Inj) 25 gm UNSCH PRN IV 05/19/16 10:15 05/24/16 10:14 (NS Flush) 5 ml UNSCH PRN IV FLUSH 05/19/16 10:15 (Gentamicin (Dialysis) Inj) 20 mg UNSCH PRN IV 05/19/16 10:15 (Zofran Inj) 4 mg UNSCH PRN IV 05/19/16 10:15 (Tylenol) 650 mg UNSCH PRN PO 05/19/16 10:15 05/25/16 19:42 (Benadryl) 25 mg UNSCH PRN PO 05/19/16 10:15 (Nitrostat Sl) 0.4 mg UNSCH PRN SL 05/19/16 10:15 (Catapres) 0.1 mg UNSCH PRN PO 05/19/16 10:15 (Epogen Inj) 10,000 units UNSCH PRN IV 05/19/16 10:15 05/29/16 16:23 (Gelfoam 12 Mm/7 Mm Top) 1 foam UNSCH PRN TOP 05/19/16 10:15 05/29/16 16:23 (Ecotrin Ec) 81 mg DAILY PO 05/23/16 09:00 05/30/16 10:01 (Plavix) 75 mg DAILY PO 05/23/16 09:00 05/30/16 10:00 (NS Flush) 2 ml BID .XX 05/22/16 21:00 05/30/16 10:02 (NS Flush) 2 ml UNSCH PRN .XX 05/22/16 14:00 (Cepacol Extra April (Sugar Free)) 1 lozenge Q2HR PRN BUCCAL 05/25/16 14:00 05/25/16 14:07 (Buspar) 5 mg DAILY PO 05/26/16 09:00 05/30/16 10:01 Pantoprazole Sodium 40 mg 40 mg Q24H IV PUSH 05/26/16 18:00 05/29/16 18:14 Cefepime HCl 1000 mg/Sodium Chloride 100 ml @ 200 mls/hr Q12H IV 05/26/16 18:00 05/30/16 05:14 (Flagyl 500 Mg Inj) 100 ml @ 100 mls/hr Q8H IV 05/26/16 18:00 05/30/16 09:58 Miscellaneous Information Patient in critical care unit? Ass... Q361D .XX 05/26/16 19:15 (Chlorhexidine 2% Cloth) 3 pack DAILY@04 TOPICAL 05/27/16 04:00 05/31/16 04:01 05/30/16 03:43 (Chlorhexidine 2% Cloth) 3 pack UNSCH PRN TOPICAL 05/26/16 19:15 05/31/16 19:14 (Bactroban Nasal 2% Oint) 1 applic Taper BID EACH NARE 05/27/16 10:00 05/23/17 09:59 05/29/16 21:22 (Haldol) 2 mg TID PRN PO 05/27/16 10:45 05/27/16 21:43 Diphenhydramine HCl 12.5 mg 12.5 mg Q6H IV PUSH 05/27/16 14:00 05/30/16 09:55 (Heparin-D5W Inj) 250 ml @ 0 mls/hr TITRATE IV 05/28/16 08:45 Hold (Eliquis) 2.5 mg BID PO 05/28/16 21:00 05/30/16 10:01 (Decadron Inj) 6 mg BID IV 05/29/16 21:00 05/30/16 09:55 A/P Assessment and Plan NEURO/PSYCH: Metabolic encephalopathy Depression Chronic benzodiazepine use Glaucoma On latanoprost 0.004% 1 drop each eye at night when necessary Holding Vilbyrd 40 mg by mouth daily for depression Holding Xanax 0.25 mg by mouth 3 times a day as needed for anxiety Currently on BuSpar 5 mill grams by mouth daily for depression Limit sedatives especially narcotics RESP: Upper airway obstruction/stridor LLL pneumonia/right lower lobe pneumonia History of FAYE - currently not on CPAP Ulnar edema CT of the neck revealed a mass at the base of left tongue 2.5 x 2.4 cm with deviation of trachea to the right. Vocal cords swollen. Some narrowing the trachea. Evaluated by Dr. Martinez/ENT. CT neck revealed a 4 x 3 cm appears cystic lesion near to but not coming from left thyroid. Dr. Martinez recommends observation with weaning of steroids and completed 1 week of antibiotic therapy. Fall palpation. Nasal cannula/simple mask to maintain saturations greater than equal to 92% BiPAP PRN. Broncho dilator therapy every 6 hours scheduled Scheduled Decadron 6 mg IV q12, Racemic epinephrine PRN. Broad-spectrum antibiotics as below with cefepime and Flagyl Patient is alternate CODE/intubation only CV: s/p PEA Arrest NSTEMI s/p PCI with BMS to LAD Systolic heart failure Coronary artery disease Left PEEP/superficial femoral vein thrombus, right superficial vein thrombus Echo 05/16 revealed EF 40-45%. Global hyperkinesis. Left atrium dilated. Mild TR. Heart catheterization 05/[address] Valentin - Kem LAD culprit vessel, 60% RCA and 50-60% OM bare metal stent to LAD. Recommended DAP 12-15 months the patient's anemia tolerates Continue aspirin and Plavix On schedule Nitropaste 2 inches every 6 And currently on Norvasc 5 mill grams daily, Coreg 12.5 mg twice a day for hypertension./Home medications Cardiology Dr. Valentin Chest x-ray revealed a right less than left infiltrate/edema. Source of dyspnea likely secondary to massive base of left tongue with trachea deviation Left deep/spatial vein thrombus, right superficial vein thrombus - Currently on DAP. Eliquis 2.5 twice a day GI: clears/renal diet if passed swallow evaluation today. With mechanical fall/ thickened liquids Protonix for GI prophylaxis RENAL: ESRD on hemodialysis History of nephrolithiasis Nephrology Dr. Miramontes. Scheduled on dialysis Sunday/Sunday and Sunday ID: LLL healthcare associated pneumonia Right lower lobe pneumonia Left tongue base mass Day #5 cefepime and Flagyl also give dose of vancomycin Pertinent cultures 05/26 - blood cultures 2 -no growth 05/26 - urine - no growth HEME: Anemia of chronic kidney disease Leukocytosis Leukocytosis likely secondary Decadron/infectious? -Previous acute thrombocytopenia has resolved, most likely secondary to Aggrastat ENDO: Secondary hyperparathyroidism Currently off Sensipar 30 mg by mouth daily FEN: Hyperphosphatemia Hyperkalemia Currently on Renvela 800 milligrams 3 times a day for hyperphosphatemia A.m. laboratories pending PROPH: -Bilateral lower extremity SCDs/Eliquis. IV Protonix LINES: Utilize peripheral IVs, central line if needed Critical Care: The total critical care time was 25 minutes. Healthcare proxy is Maureen Sorensen [phone] goal is return to [facility] with hospice. Previously on [facility] revoked prior to admission Eddi Marx MD May 30, 2016 11:16
--- NOTE | 2016-05-30 11:58 | HHI.HCPN ---
Reason for visit a. To assist with evaluation and management of symptoms including: pain, dyspnea, anxiety, weakness b. To assist medical decision maker(s) with: better understanding of current medical conditions; weighing benefits/burdens of medical treatment options; making medical treatment decisions. . Subjective/Interval History Ms. Meehan is an 85-year-old female admitted to [facility] 05/09/16 for management of chest pain, anemia and CAD. On 05/26/16 patient was transferred to ICU secondary to respiratory stridor. CT of the neck shows a mass of the left pharyngeal wall and sargent of tongue. Dr. Martinez consulted. Recommended medical management with antibiotic and steroids. Repeat neck CT for showing cystic mass in the left neck of uncertain etiology. Patient was seen and assessed in ICU, pending transfer to medical floor. she is a febrile. Hemodynamically stable. Tolerating O2 via nasal cannula 2 L. Dyspnea on exertion. Laboratory to include WBC 12.3 -trending down. Hgb 9.5, platelet count 391. Sodium 138, potassium 4.3, BUN/creatinine 56/4.41. Nephrology following. Patient was scheduled hemodialysis 3 times per week. Albumin 2.5. Blood and urine culture 05/26/16 no growth. Chest x-ray 05/28/16 showing bibasilar infiltrates. Patient is alert to self, place and situation. Verbal and able to communicate needs. Patient denies pain, nausea vomiting or diarrhea. Endorsing "not feeling well", dyspnea on exertion. Patient tells me that she feels very weak. Reviewed events leading to these hospitalization, clinical course and current plan of treatment. Patient tells me that she is not sure if she wants to continue hemodialysis at this point, she tells me that she is just "tired" and at times she feels not wanting to pursue medical care. Encourage patient to further discuss with daughter Florentin. Telephone conversation with daughter Florentin, medical update provided. Reviewed current treatment plan. Daughter tells me that goal of care is for patient to be discharged back to [facility] with home health for physical therapy versus [facility] hospice. Daughter tells me that [facility] hospice has accepted patient and is currently following. As per daughter Alessia is in agreement of continuation of hemodialysis while on hospice services. Encourage daughter to talk to patient about goals of care given patient's verbalization and that she is not sure if she wants to continue hemodialysis treatment at this time. Daughter tells me that she is aware of this and will continue conversations with patient. . Family/friend interactions see interval note. . Advance Directives Health Care Surrogate: Copy in medical record Durable Power of Film Sorter: Completed, but not made available Advance Directive Specifics Date completed: 05/18/16 . Health Care Surrogate(s): Patient's daughter, Maureen Sorensen, is designated as the healthcare surrogate. . Documented care wishes: No documented care wishes are available at this time. . Significant change in goals: Alternate code/intubation only. Goal of care at this time is to discharge to [facility] was medically clear. Discharge with home health for PT/OT vs. [facility]. . Objective Vital Signs Date Time Temp Pulse Resp B/P Pulse Ox O2 Delivery O2 Flow Rate FiO2 05/30/16 08:00 98 Room Air 05/30/16 08:00 69 05/30/16 06:00 69 05/30/16 04:00 68 05/30/16 04:00 95 Nasal Cannula 2.00 05/30/16 04:00 98.2 68 15 139/65 95 05/30/16 02:00 67 05/30/16 00:00 98.4 72 15 119/58 99 05/30/16 00:00 72 05/30/16 00:00 100 Nasal Cannula 2.00 05/29/16 22:00 76 05/29/16 20:32 100 Nasal Cannula 4.00 05/29/16 20:00 70 05/29/16 20:00 98.5 70 12 144/69 100 05/29/16 20:00 100 Nasal Cannula 4.00 05/29/16 18:00 72 05/29/16 16:00 100 Nasal Cannula 4.00 05/29/16 16:00 98.4 66 14 148/69 100 05/29/16 16:00 66 05/29/16 14:00 68 05/29/16 12:00 100 Nasal Cannula 4.00 05/29/16 12:00 76 05/29/16 12:00 98.8 76 22 146/65 100 Intake & Output 05/30/16 05/30/16 07:00 19:00 Intake Total 1194 ml Output Total 125 ml Balance 1069 ml Intake Oral 480 ml IV Total 714 ml Output Urine Total 125 ml # Bowel Movements 0 Physical Exam CONSTITUTIONAL/GENERAL: This is an adequately nourished elderly, female patient in no acute distress TUBES/LINES/DRAINS: PIVs SKIN: No jaundice, rashes, or lesions. Ecchymoses on upper extremities. No wounds seen anteriorly. Skin temperature appropriate. Not diaphoretic. HEAD: Atraumatic. Normocephalic. EYES: Pupils equal and round and reactive. ENT: Hearing grossly normal. Nose without bleeding or purulent drainage. NECK: Trachea midline. CARDIOVASCULAR: Regular rate and rhythm. + Murmur. Peripheral pulses symmetric. RESPIRATORY/CHEST: On nasal cannula. Breath sounds diminished bilaterally. No wheezes, rales, or rhonchi. GASTROINTESTINAL: Abdomen soft, non-tender, nondistended. . No guarding. Bowel sounds present. GENITOURINARY: Without palpable bladder distension. MUSCULOSKELETAL: Extremities without clubbing, cyanosis, or edema. No obvious deformities LYMPHATICS: No palpable cervical or supraclavicular adenopathy. NEUROLOGICAL: Alert to self, place and situation. Verbal and able to communicate needs. Following commands. PSYCHIATRIC: No obvious anxiety/agitation noted. Pleasant. . Diagnostic Tests Laboratory Laboratory Tests Test 05/27/16 05/27/16 05/28/16 05/28/16 12:10 17:45 07:47 10:00 Potassium Level 5.7 MEQ/L 5.1 MEQ/L 5.0 MEQ/L (3.5-5.1) (3.5-5.1) (3.5-5.1) White Blood Count 31.5 TH/MM3 (4.0-11.0) Red Blood Count 3.17 MIL/MM3 (4.00-5.30) Hemoglobin 9.8 GM/DL (11.6-15.3) Hematocrit 29.2 % (35.0-46.0) Mean Corpuscular Volume 92.0 FL (80.0-100.0) Mean Corpuscular Hemoglobin 30.9 PG (27.0-34.0) Mean Corpuscular Hemoglobin 33.6 % Concent (32.0-36.0) Red Cell Distribution Width 18.5 % (11.6-17.2) Platelet Count 409 TH/MM3 (150-450) Mean Platelet Volume 7.4 FL (7.0-11.0) Neutrophils (%) (Auto) 96.6 % (16.0-70.0) Lymphocytes (%) (Auto) 0.7 % (9.0-44.0) Monocytes (%) (Auto) 2.4 % (0.0-8.0) Eosinophils (%) (Auto) 0.0 % (0.0-4.0) Basophils (%) (Auto) 0.3 % (0.0-2.0) Neutrophils # (Auto) 30.4 TH/MM3 (1.8-7.7) Lymphocytes # (Auto) 0.2 TH/MM3 (1.0-4.8) Monocytes # (Auto) 0.8 TH/MM3 (0-0.9) Eosinophils # (Auto) 0.0 TH/MM3 (0-0.4) Basophils # (Auto) 0.1 TH/MM3 (0-0.2) CBC Comment AUTO DIFF Differential Total Cells 100 Counted Neutrophils % (Manual) 98 % (16-70) Band Neutrophils % 1 % (0-6) Lymphocytes % 1 % (9-44) Neutrophils # (Manual) 31.2 TH/MM3 (1.8-7.7) Differential Comment FINAL DIFF MANUAL Platelet Estimate NORMAL (NORMAL) Platelet Morphology Comment NORMAL (NORMAL) Acanthocytes OCC (NORMAL) Keratocytes OCC (NORMAL) Sodium Level 136 MEQ/L (136-145) Chloride Level 95 MEQ/L (98-107) Carbon Dioxide Level 29.0 MEQ/L (21.0-32.0) Anion Gap 12 MEQ/L (5-15) Blood Urea Nitrogen 71 MG/DL (7-18) Creatinine 5.29 MG/DL (0.50-1.00) Estimat Glomerular Filtration 9 ML/MIN (>89) Rate Random Glucose 108 MG/DL (74-106) Calcium Level 8.6 MG/DL (8.5-10.1) Phosphorus Level 4.3 MG/DL (2.5-4.9) Magnesium Level 2.3 MG/DL (1.5-2.5) Prothrombin Time 13.4 SEC (9.8-11.6) Prothromb Time International 1.2 RATIO Ratio Activated Partial 27.5 SEC Thromboplast Time (24.3-30.1) Test 4/05/29/16 05/30/16 16:12 06:14 04:28 Activated Partial 24.7 SEC Thromboplast Time (24.3-30.1) White Blood Count 17.5 TH/MM3 12.3 TH/MM3 (4.0-11.0) (4.0-11.0) Red Blood Count 3.07 MIL/MM3 3.08 MIL/MM3 (4.00-5.30) (4.00-5.30) Hemoglobin 9.5 GM/DL 9.5 GM/DL (11.6-15.3) (11.6-15.3) Hematocrit 28.0 % 28.4 % (35.0-46.0) (35.0-46.0) Mean Corpuscular Volume 91.2 FL 92.3 FL (80.0-100.0) (80.0-100.0) Mean Corpuscular Hemoglobin 31.0 PG 30.7 PG (27.0-34.0) (27.0-34.0) Mean Corpuscular Hemoglobin 34.0 % 33.3 % Concent (32.0-36.0) (32.0-36.0) Red Cell Distribution Width 18.4 % 18.1 % (11.6-17.2) (11.6-17.2) Platelet Count 421 TH/MM3 391 TH/MM3 (150-450) (150-450) Mean Platelet Volume 7.3 FL 7.4 FL (7.0-11.0) (7.0-11.0) Neutrophils (%) (Auto) 95.5 % (16.0-70.0) Lymphocytes (%) (Auto) 1.4 % (9.0-44.0) Monocytes (%) (Auto) 2.7 % (0.0-8.0) Eosinophils (%) (Auto) 0.0 % (0.0-4.0) Basophils (%) (Auto) 0.4 % (0.0-2.0) Neutrophils # (Auto) 16.7 TH/MM3 (1.8-7.7) Lymphocytes # (Auto) 0.2 TH/MM3 (1.0-4.8) Monocytes # (Auto) 0.5 TH/MM3 (0-0.9) Eosinophils # (Auto) 0.0 TH/MM3 (0-0.4) Basophils # (Auto) 0.1 TH/MM3 (0-0.2) CBC Comment DIFF FINAL Differential Comment Sodium Level 136 MEQ/L 138 MEQ/L (136-145) (136-145) Potassium Level 5.2 MEQ/L 4.3 MEQ/L (3.5-5.1) (3.5-5.1) Chloride Level 95 MEQ/L 97 MEQ/L (98-107) (98-107) Carbon Dioxide Level 28.7 MEQ/L 28.9 MEQ/L (21.0-32.0) (21.0-32.0) Anion Gap 12 MEQ/L (5-15) 12 MEQ/L (5-15) Blood Urea Nitrogen 98 MG/DL (7-18) 56 MG/DL (7-18) Creatinine 6.53 MG/DL 4.41 MG/DL (0.50-1.00) (0.50-1.00) Estimat Glomerular Filtration 7 ML/MIN (>89) 11 ML/MIN (>89) Rate Random Glucose 126 MG/DL 130 MG/DL (74-106) (74-106) Calcium Level 8.3 MG/DL 8.6 MG/DL (8.5-10.1) (8.5-10.1) Phosphorus Level 5.7 MG/DL (2.5-4.9) Albumin 2.5 GM/DL (3.4-5.0) Result Diagram: 05/30/16 0428 05/30/16 0428 Procedures 05/16/16: Cardiac catheterization 05/16/16: PEA arrest with intubation 05/16/16: extubation . Assessment and Plan Disease Oriented Problem List: (1) NSTEMI (non-ST elevated myocardial infarction) (2) COPD (chronic obstructive pulmonary disease) (3) Thrombocytopenia (4) Paroxysmal atrial fibrillation (5) Hypertension (6) CAD (coronary artery disease) (7) Unstable angina (8) ESRD (end stage renal disease) Symptom Scale: (1) Anxiety 0-10 Scale: Unable to quantify (2) Pain 0-10 Scale: 0 Comment: Patient denies chest pain on exam. (3) Dyspnea 0-10 Scale: Unable to quantify Comment: O2 via nasal cannula. Endorsing dyspnea on exertion. Pertinent Non-Medical Issues Psychosocial: Ms. Meehan was born in [place]. 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 Ms. 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 Patient was twice. She her first after 18 years. Her second recently, they were for 9 years. He was a spreader operator, she describes her second as ' the most wonderful man". She has 2 adult adopted children. A daughter, Maureen, who lives locally. She also has a son, Marty, but they are not close. Spiritual: Patient considers herself spiritual, her second was spreader operator. She refused machine applicator cementer visits. Legal: Patient's daughter, Maureen Sorensen, is designated as the health care surrogate. Ethical issues impacting care: Patient is capacitated at the time of my visit. She demonstrates understanding of her illness and the ability to weight benefits and burdens of treatment options. . Important Contacts Florentin Sorensen, daughter: [phone] . Prognosis Patient with extensive CAD s/p cardiac catheterizations in April and May of this year with stent placement. Patient's most recent cardiac catheterization was complicated by a PEA arrest and hypoxemia requiring ACLS and intubation as well as mechanical ventilation. Patient hospitalization complicated by severe thrombocytopenia for which hematology was consulted - and thought was related to restriction of Aggrastat during the procedure. Patient is not a candidate for further aggressive interventions at this time. Hospice care has been recommended. . Code Status: Alternative Code Plan * CODE STATUS: Alternate code/intubation only. * MEDICAL DECISION-MAKING: Patient had intermittent confusion, however a letter and oriented 3 today. Daughter following is healthcare surrogate. Palliative care recommends shared decision-making secondary to intermittent confusion. * GOALS OF CARE: Goal of care at this time is to discharge to [facility] when medically cleared. Discharge with home health for PT/OT vs. [facility] hospice. Patient known to [facility] hospice. Daughter tells me that [facility] hospice has accepted patient and is currently following. As per daughter Alessia is in agreement of continuation of hemodialysis while on hospice services. Encourage daughter to talk to patient about goals of care given patient's verbalization and that she is not sure if she wants to continue hemodialysis treatment at this time. Daughter tells me that she is aware of this and will continue conversations with patient. * SYMPTOMS: == Dyspnea: Currently tolerating O2 via nasal cannula. On dexamethasone and albuterol nebulizer. Has been treated for pneumonia. == Debility: Secondary to acute illness, bed bound state. PT following. == Chest pain: Nitroglycerin as needed. * Discussed with bedside RN. * Palliative care contact information has been provided to patient's daughter. * Palliative care will continue to follow-up throughout this hospitalization as the clinical course evolves. . Time Spent Total Floor Time (mins): 36 (Total time to include review of medical records, physical exam, telephone conversation with patient's daughter, and case discussion with bedside RN.) >50% Counseling/Coord of Care: Yes Collaborating MD Comments To help prompt me to consider important information that might be impacting today's encounter and assessment, information from prior notes written by myself or my colleagues may have been "brought forward" into today's note. My signature on this note, however, is an attestation that I personally performed the exam, history, and/or decision-making noted today, and, unless otherwise indicated, the interactions with patient, family, and staff as well as the review of records all occurred today. I also attest that the listed assessment and stated plan reflect my best clinical judgment today based on the combination of historical information, prior notes, and today's exam/ interactions. When time spent is documented, it refers only to time spent today by the signer, or if indicated, combined time spent today by collaborating physician/nurse practitioner. Lubna Graves May 30, 2016 11:58
--- NOTE | 2016-05-30 13:58 | PD.CARD.PN ---
Subjective Subjective Remarks denies cp, in nad, alert Objective Vital Signs / I&O Vital Signs Date Time Temp Pulse Resp B/P Pulse Ox O2 Delivery O2 Flow Rate FiO2 05/30/16 12:00 98 Room Air 05/30/16 12:00 77 05/30/16 12:00 98.2 77 12 113/56 100 05/30/16 10:00 72 05/30/16 08:00 98.6 72 17 149/69 95 05/30/16 08:00 98 Room Air 05/30/16 08:00 69 05/30/16 06:00 69 05/30/16 04:00 68 05/30/16 04:00 95 Nasal Cannula 2.00 05/30/16 04:00 98.2 68 15 139/65 95 05/30/16 02:00 67 05/30/16 00:00 98.4 72 15 119/58 99 05/30/16 00:00 72 05/30/16 00:00 100 Nasal Cannula 2.00 05/29/16 22:00 76 05/29/16 20:32 100 Nasal Cannula 4.00 05/29/16 20:00 70 05/29/16 20:00 98.5 70 12 144/69 100 05/29/16 20:00 100 Nasal Cannula 4.00 05/29/16 18:00 72 05/29/16 16:00 100 Nasal Cannula 4.00 05/29/16 16:00 98.4 66 14 148/69 100 05/29/16 16:00 66 05/29/16 14:00 68 I/O 05/29/16 05/29/16 05/29/16 05/30/16 05/30/16 05/30/16 07:00 15:00 23:00 07:00 15:00 23:00 Intake Total 181 ml 566 ml 624 ml 570 ml Output Total 50 ml 100 ml 2125 ml 0 ml Balance 131 ml 466 ml -1501 ml 570 ml Intake Oral 50 ml 240 ml 240 ml 240 ml IV Total 131 ml 326 ml 384 ml 330 ml Output Urine Total 50 ml 100 ml 125 ml 0 ml Hemodialysis 2000 ml # Bowel Movements 0 0 0 Physical Exam GENERAL: SKIN: Warm and dry. HEAD: Normocephalic. EYES: No scleral icterus. No injection or drainage. NECK: Supple, trachea midline. No JVD or lymphadenopathy. CARDIOVASCULAR: Regular rate and rhythm without murmurs, gallops, or rubs. RESPIRATORY: Breath sounds equal bilaterally. No accessory muscle use. GASTROINTESTINAL: Abdomen soft, non-tender, nondistended. MUSCULOSKELETAL: No cyanosis, or edema. BACK: Nontender without obvious deformity. No CVA tenderness. Laboratory Laboratory Tests Test 05/30/16 04:28 White Blood Count 12.3 TH/MM3 Red Blood Count 3.08 MIL/MM3 Hemoglobin 9.5 GM/DL Hematocrit 28.4 % Mean Corpuscular Volume 92.3 FL Mean Corpuscular Hemoglobin 30.7 PG Mean Corpuscular Hemoglobin 33.3 % Concent Red Cell Distribution Width 18.1 % Platelet Count 391 TH/MM3 Mean Platelet Volume 7.4 FL Sodium Level 138 MEQ/L Potassium Level 4.3 MEQ/L Chloride Level 97 MEQ/L Carbon Dioxide Level 28.9 MEQ/L Anion Gap 12 MEQ/L Blood Urea Nitrogen 56 MG/DL Creatinine 4.41 MG/DL Estimat Glomerular Filtration 11 ML/MIN Rate Random Glucose 130 MG/DL Calcium Level 8.6 MG/DL Assessment and Plan Problem List: (1) Atrial fibrillation, new onset (2) Aortic stenosis (3) Hypertension (4) Hyperlipidemia (5) Depression (6) CAD (coronary artery disease) (7) Chest pain (8) Cardiomyopathy Assessment and Plan 1.) CAD - no chest pain x 7 days, s/p pci bms mid lad, small diagonal vessel jailed but patent, continue dapt as plt>50; chest pain resolved, elevated troponin due to jailed 90% ostial small dx vessel and esrd, do not think this is a life threatening stenosis or that requires admission, o/w patient is completely revascularized 2.) PAF - in nsr, assymptomatic, eliquis held d/t thrombocytopenia 3.) PEA - suspect d/t apnea from fentanyl and/or versed, trop elevated due to pea and esrd, trending down pci; patient is hospice, do not rec recurrent cath due to high risk d/t thrombocytopenia, pea from conscience sedation from fentanyl/versed and inability to access diagonal vessel d/t vessel tortuosity and 90 degreee angle off lad; rec palliative care consult, prn ntg 4.) Ok to dc from cv standpoint, f/u with me hellen; rec hospice, patient undecided 6.) thrombocytopenia - improved, = 129k today 6.) Stridor - possibly related to narcotics, known allergy to dilaudid, mso4, pea/apnea with fentanyl, had stridor with percocet, rec dc percocet 7.) Anemia - hgb improved 8.) Ambulate, scd's, pt consult d/w nurse 9) Hypoxia - improving, rec more fluid removal w dialysus, d/w Dr Roe 10.) DVT - on eliquis, 11.) Rec hospice, d/w patient, Dr Roe and nurse Problem Qualifiers (1) Hypertension: Qualified Code: I10 - Essential hypertension (2) CAD (coronary artery disease): Qualified Code: I25.10 - Coronary artery disease due to calcified coronary lesion (3) Chest pain: Qualified Code: R07.2 - Precordial pain Zohaib Valentin MD May 30, 2016 13:58
[2016-05-30] MEDS: PANTOPRAZOLE SODIUM 40 MG VIAL IV PUSH SCH (16:42)
[2016-05-30] MEDS ORDERED: MUPIROCIN 2% OINT 1 APPLIC/GM SYR EACH NARE SCH (21:00)
[2016-05-31] VITALS (7 sets, daily range): BP systolic 120–162; BP diastolic 60–72; PULSE 67–83; RESP 16–19; TEMP 98.1–98.8; O2SAT 95–96
[2016-05-31] MEDS: diphenhydrAMINE HCL 50 MG/ML VIAL IV PUSH SCH ×4 (00:51→20:54)
[2016-05-31] MEDS: metroNIDAZOLE 500 MG INJ 100 ML IV SCH ×3 (00:52→17:40)
[2016-05-31] MEDS: CHLORHEXIDINE GLUCONATE 2 % 1 PACK (2 CLOTHS)(taper/protocol) TOPICAL SCH (04:00)
[2016-05-31] MEDS: CEFEPIME INJ 1,000 MG in SODIUM CHLORIDE 0.9% INJ 100 ML IV SCH (05:12)
[2016-05-31] MEDS: NITROGLYCERIN 2% OINT 1 GM PACKET TOPICAL SCH ×4 (05:12→20:53)
[2016-05-31] MEDS: INSULIN ASPART SUPPLEMENTAL SCALE SQ SCH ×4 (05:13→17:51)
[2016-05-31 07:55] LABS: AUTOMATED NEUTROPHIL # 15.1 TH/MM3 (1.8-7.7); BASOPHIL % 0.2 % (0.0-2.0); EOSINOPHIL % 0.1 % (0.0-4.0); HEMATOCRIT 30.6 % (35.0-46.0); HEMO FLAGS DIFF FINAL; LYMPHOCYTE # 0.5 TH/MM3 (1.0-4.8); MEAN CORPUSCULAR HEMOGLOBIN 30.3 PG (27.0-34.0); MEAN CORPUSCULAR HGB CONC 33.6 % (32.0-36.0); MONO % 8.3 % (0.0-8.0); NEUT % 88.4 % (16.0-70.0); PLATELET COUNT 387 TH/MM3 (150-450); RED CELL DISTRIBUTION WIDTH 18.5 % (11.6-17.2); WHITE BLOOD COUNT 17.1 TH/MM3 (4.0-11.0)
[2016-05-31 08:24] LABS: ALKALINE PHOSPHATASE 94 U/L (45-117); ALT (GPT) 8 U/L (10-53); ANION GAP 12 MEQ/L (5-15); AST (GOT) 7 U/L (15-37); BICARBONATE 28.3 MEQ/L (21.0-32.0); CHLORIDE 94 MEQ/L (98-107); GLOMERULAR FILTRATION RATE 9 ML/MIN (>89); POTASSIUM 5.2 MEQ/L (3.5-5.1); SODIUM (NA) 134 MEQ/L (136-145); TOTAL BILIRUBIN ADULT 0.5 MG/DL (0.2-1.0)
[2016-05-31 08:26] LABS: BLOOD UREA NITROGEN 75 MG/DL (7-18)
[2016-05-31] MEDS: ACETAMINOPHEN 325 MG TAB PO PRN ×3 (08:50→17:53)
[2016-05-31] MEDS: MUPIROCIN 2% OINT 1 APPLIC/GM SYR EACH NARE SCH ×2 (09:00→20:53)
--- NOTE | 2016-05-31 09:08 | HHI.FPPN ---
Subjective Remarks HARSH COUGH VERY WEAK UNSURE ABOUT HOSPICE D/W RN D/W HD RN Objective Vitals Vital Signs Date Time Temp Pulse Resp B/P Pulse Ox O2 Delivery O2 Flow Rate FiO2 05/31/16 05:29 98.6 67 16 135/62 95 05/31/16 01:33 98.3 74 16 145/67 95 05/30/16 21:36 98.6 62 16 131/63 98 05/30/16 20:12 72 05/30/16 20:00 Room Air 05/30/16 16:00 98.6 74 17 125/62 96 05/30/16 15:51 98 21 05/30/16 12:00 98 Room Air 05/30/16 12:00 77 05/30/16 12:00 98.2 77 12 113/56 100 05/30/16 10:00 72 I/O 05/30/16 05/30/16 05/30/16 05/31/16 05/31/16 05/31/16 07:00 15:00 23:00 07:00 15:00 23:00 Intake Total 570 ml 1042 ml 666 ml Output Total 0 ml 0 ml 1 ml Balance 570 ml 1042 ml 665 ml Intake Oral 240 ml 720 ml 560 ml IV Total 330 ml 322 ml 106 ml Output Urine Total 0 ml 0 ml Stool Total 1 ml # Voids 0 # Bowel Movements 0 0 1 Result Diagram: 05/31/1672905/31/1630 Objective Remarks GENERAL: SKIN: Warm and dry. HEAD: Atraumatic. Normocephalic. EYES: Pupils equal and round. No scleral icterus. No injection or drainage. ENT: No nasal bleeding or discharge. Mucous membranes pink and moist. NECK: Trachea midline. No JVD. CARDIOVASCULAR: Regular rate and rhythm. RESPIRATORY: bilat ronchi, harsh cough, GASTROINTESTINAL: Abdomen soft, non-tender, nondistended. Hepatic and splenic margins not palpable. MUSCULOSKELETAL: Extremities without clubbing, cyanosis, or edema. No obvious deformities. NEUROLOGICAL: Awake and alert. No obvious cranial nerve deficits. Motor grossly within normal limits. 1 out of 5 muscle strength in the arms and legs. Normal speech. PSYCHIATRIC: Appropriate mood and affect; insight and judgment normal. A/P Assessment and Plan NEURO/PSYCH: Metabolic encephalopathy Depression Chronic benzodiazepine use Glaucoma On latanoprost 0.004% 1 drop each eye at night when necessary Holding Vilbyrd 40 mg by mouth daily for depression Holding Xanax 0.25 mg by mouth 3 times a day as needed for anxiety Currently on BuSpar 5 mill grams by mouth daily for depression Limit sedatives especially narcotics RESP: Upper airway obstruction/stridor LLL pneumonia/right lower lobe pneumonia History of FAYE - currently not on CPAP Ulnar edema CT of the neck revealed a mass at the base of left tongue 2.5 x 2.4 cm with deviation of trachea to the right. Vocal cords swollen. Some narrowing the trachea. Evaluated by Dr. Martinez/ENT. CT neck revealed a 4 x 3 cm appears cystic lesion near to but not coming from left thyroid. Dr. Martinez recommends observation with weaning of steroids and completed 1 week of antibiotic therapy. Fall palpation. Nasal cannula/simple mask to maintain saturations greater than equal to 92% BiPAP PRN. Broncho dilator therapy every 6 hours scheduled Scheduled Decadron 6 mg IV q12, Racemic epinephrine PRN. Broad-spectrum antibiotics as below with cefepime and Flagyl Patient is alternate CODE/intubation only CV: s/p PEA Arrest NSTEMI s/p PCI with BMS to LAD Systolic heart failure Coronary artery disease Left PEEP/superficial femoral vein thrombus, right superficial vein thrombus Echo 05/16 revealed EF 40-45%. Global hyperkinesis. Left atrium dilated. Mild TR. Heart catheterization 05/[address] Valentin - Kem LAD culprit vessel, 60% RCA and 50-60% OM bare metal stent to LAD. Recommended DAP 12-15 months the patient's anemia tolerates Continue aspirin and Plavix On schedule Nitropaste 2 inches every 6 And currently on Norvasc 5 mill grams daily, Coreg 12.5 mg twice a day for hypertension./Home medications Cardiology Dr. Valentin Chest x-ray revealed a right less than left infiltrate/edema. Source of dyspnea likely secondary to massive base of left tongue with trachea deviation Left deep/spatial vein thrombus, right superficial vein thrombus - Currently on DAP. Eliquis 2.5 twice a day GI: clears/renal diet if passed swallow evaluation today. With mechanical fall/ thickened liquids Protonix for GI prophylaxis RENAL: ESRD on hemodialysis History of nephrolithiasis Nephrology Dr. Miramontes. Scheduled on dialysis Sunday/Sunday and Sunday ID: LLL healthcare associated pneumonia Right lower lobe pneumonia Left tongue base mass iv ABX. Pertinent cultures 05/26 - blood cultures 2 -no growth 05/26 - urine - no growth HEME: Anemia of chronic kidney disease Leukocytosis Leukocytosis likely secondary Decadron/infectious? -Previous acute thrombocytopenia has resolved, most likely secondary to Aggrastat ENDO: Secondary hyperparathyroidism Currently off Sensipar 30 mg by mouth daily FEN: Hyperphosphatemia Hyperkalemia Currently on Renvela 800 milligrams 3 times a day for hyperphosphatemia A.m. laboratories pending PROPH: -Bilateral lower extremity SCDs/Eliquis. IV Protonix LINES: Utilize peripheral IVs, central line if needed Critical Care: The total critical care time was 25 minutes. Healthcare proxy is Maureen Edu [phone] goal is return to [facility] with hospice. Previously on [facility] revoked prior to admission Eddi Marx MD May 31, 2016 09:08
--- NOTE | 2016-05-31 09:24 | HHI.NPPN ---
Subjective General Problems: Anemia Renal Failure: Chronic, End Stage Renal Disease Interval History Seen during dialysis. She is tearful and states she is tired. (Lelo Chong) Review of Systems General Constitutional: Fatigue (Lelo Chong) Ears, Nose, & Throat Ears, Nose & Throat: Sore Throat, Hoarse (Lelo Chong) Cardiovascular Cardiac: Chest Pain (Lelo Chong) Objective Data Data 05/30/16 05/31/16 19:00 07:00 Intake Total 1042 ml 666 ml Output Total 0 ml 1 ml Balance 1042 ml 665 ml Intake Oral 720 ml 560 ml IV Total 322 ml 106 ml Output Urine Total 0 ml Stool Total 1 ml # Voids 0 # Bowel Movements 0 1 Vital Signs Date Time Temp Pulse Resp B/P Pulse Ox O2 Delivery O2 Flow Rate FiO2 05/31/16 05:29 98.6 67 16 135/62 95 05/31/16 01:33 98.3 74 16 145/67 95 05/30/16 21:36 98.6 62 16 131/63 98 05/30/16 20:12 72 05/30/16 20:00 Room Air 05/30/16 16:00 98.6 74 17 125/62 96 05/30/16 15:51 98 21 05/30/16 12:00 98 Room Air 05/30/16 12:00 77 05/30/16 12:00 98.2 77 12 113/56 100 05/30/16 10:00 72 (Lelo Chong) -: 05/31/16 0730 05/31/16 0730 Physical Exam General Appearance: No Acute Distress, Comfortable, Anxious, Malnourished (Lelo Chong) Eyes Eye Exam: Pupils Equal (Lelo Chong) Throat Throat Exam: Oral Mucosa [place] & Moist (Lelo Chong) Neck Neck Exam: Neck Supple (Lelo Chong) Pulmonary Resp Exam: Breath Sounds Equal, No Distress, Diminished Breath Sounds, Poor Inspiratory Effort (Lelo Chong) Cardiology CV Exam: Regular, Normal Sinus Rhythm, Good Perfusion, Dyspnea on Exertion ( Lelo Chong) Gastrointestinal/Abdomen GI Exam: Soft, Non-Tender, Bowel Sounds Present (Lelo Chong) Musculoskeletal MS Exam: Joints Intact, Normal Tone (Lelo Chong) Integumentary Skin Exam: Clear, Warm, Dry, Intact (Lelo Chong) Extremeties Extremities Exam: No Edema, Pedal Pulses Palpable Extremeties Remarks right AVF (Lelo Chong) Neurologic Neuro Exam: Alert, Awake, Oriented, Speech Clear, Moving All Extremities ( Lelo Chong) Psychiatric Psych Exam: Appropriate Responses (Lelo Chong) Assessment/Plan Discussed Condition With: Patient Assessment Summary: Anemia of CKD, CHF, Hypertension, End Stage Renal Disease Problem List: (1) ESRD (end stage renal disease) Plan: HD to be continued MWF. seen during dialysis today on a 2K, 350 BFR, goal 3L. repeat K in am avoid gadolinium, she is not on IVF has functioning fistula for dialysis oliguric at baseline no acute renal concerns, we are okay with discharge when cleared by all physicians to resume outpatient HD arrangement or transition to hospice (2) Stridor Plan: ENT following, CT taken, results reviewed continue steroid taper, antibiotics clinically improving, continue to monitor (3) CAD (coronary artery disease) Plan: adjust UF with dialysis as tolerated/required cardiology following sp cath with stent to LAD, EF 45% no further PCI per Dr. Valentin (4) Anemia Plan: Hemoglobin has improved. Continue Epogen. (5) Atrial fibrillation Plan: Rate controlled cardiology following on Eliquis (6) Thrombocytopenia Plan: corrected, due to Aggrastat antiplatelets have been resumed (Lelo Chong) Plan patient was seen and examined during dialysis. Stridor has improved. She is considering hospice. She can be discharged from renal standpoint. (Roland Miramontes MD) Problem Qualifiers (1) CAD (coronary artery disease): Qualified Code: I25.10 - Coronary artery disease due to calcified coronary lesion (2) Anemia: Lelo Chong May 31, 2016 09:24 Roland Miramontes MD May 31, 2016 17:22
[2016-05-31] MEDS: EPOETIN ALFA 10,000 UNITS/ML VIAL IV PRN (12:00)
[2016-05-31] MEDS: SEVELAMER CARBONATE 800 MG TAB PO SCH ×3 (13:00→17:44)
--- NOTE | 2016-05-31 13:27 | PD.CARD.PN ---
Subjective Subjective Remarks denies chest pain, alert in nad Objective Vital Signs / I&O Vital Signs Date Time Temp Pulse Resp B/P Pulse Ox O2 Delivery O2 Flow Rate FiO2 05/31/16 08:00 98.1 83 18 162/72 95 05/31/16 05:29 98.6 67 16 135/62 95 05/31/16 01:33 98.3 74 16 145/67 95 05/30/16 21:36 98.6 62 16 131/63 98 05/30/16 20:12 72 05/30/16 20:00 Room Air 05/30/16 16:00 98.6 74 17 125/62 96 05/30/16 15:51 98 21 I/O 05/30/16 05/30/16 05/30/16 05/31/16 05/31/16 05/31/16 07:00 15:00 23:00 07:00 15:00 23:00 Intake Total 570 ml 1042 ml 666 ml Output Total 0 ml 0 ml 1 ml Balance 570 ml 1042 ml 665 ml Intake Oral 240 ml 720 ml 560 ml IV Total 330 ml 322 ml 106 ml Output Urine Total 0 ml 0 ml Stool Total 1 ml # Voids 0 # Bowel Movements 0 0 1 Physical Exam GENERAL: SKIN: Warm and dry. HEAD: Normocephalic. EYES: No scleral icterus. No injection or drainage. NECK: Supple, trachea midline. No JVD or lymphadenopathy. CARDIOVASCULAR: Regular rate and rhythm without murmurs, gallops, or rubs. RESPIRATORY: Breath sounds equal bilaterally. No accessory muscle use. GASTROINTESTINAL: Abdomen soft, non-tender, nondistended. MUSCULOSKELETAL: No cyanosis, or edema. BACK: Nontender without obvious deformity. No CVA tenderness. Laboratory Laboratory Tests Test 05/31/16 07:30 White Blood Count 17.1 TH/MM3 Red Blood Count 3.40 MIL/MM3 Hemoglobin 10.3 GM/DL Hematocrit 30.6 % Mean Corpuscular Volume 90.0 FL Mean Corpuscular Hemoglobin 30.3 PG Mean Corpuscular Hemoglobin 33.6 % Concent Red Cell Distribution Width 18.5 % Platelet Count 387 TH/MM3 Mean Platelet Volume 7.3 FL Neutrophils (%) (Auto) 88.4 % Lymphocytes (%) (Auto) 3.0 % Monocytes (%) (Auto) 8.3 % Eosinophils (%) (Auto) 0.1 % Basophils (%) (Auto) 0.2 % Neutrophils # (Auto) 15.1 TH/MM3 Lymphocytes # (Auto) 0.5 TH/MM3 Monocytes # (Auto) 1.4 TH/MM3 Eosinophils # (Auto) 0.0 TH/MM3 Basophils # (Auto) 0.0 TH/MM3 CBC Comment DIFF FINAL Differential Comment Hematology Comments Sodium Level 134 MEQ/L Potassium Level 5.2 MEQ/L Chloride Level 94 MEQ/L Carbon Dioxide Level 28.3 MEQ/L Anion Gap 12 MEQ/L Blood Urea Nitrogen 75 MG/DL Creatinine 5.45 MG/DL Estimat Glomerular Filtration 9 ML/MIN Rate Random Glucose 112 MG/DL Calcium Level 8.4 MG/DL Phosphorus Level 3.3 MG/DL Magnesium Level 2.0 MG/DL Total Bilirubin 0.5 MG/DL Aspartate Amino Transf 7 U/L (AST/SGOT) Alanine Aminotransferase 8 U/L (ALT/SGPT) Alkaline Phosphatase 94 U/L Total Protein 5.5 GM/DL Albumin 2.6 GM/DL Assessment and Plan Problem List: (1) Atrial fibrillation, new onset (2) Aortic stenosis (3) Hypertension (4) Hyperlipidemia (5) Depression (6) CAD (coronary artery disease) (7) Chest pain (8) Cardiomyopathy Assessment and Plan 1.) CAD - no chest pain x 8 days, s/p pci bms mid lad, small diagonal vessel jailed but patent, continue dapt as plt>50; chest pain resolved, elevated troponin due to jailed 90% ostial small dx vessel and esrd, do not think this is a life threatening stenosis or that requires admission, o/w patient is completely revascularized 2.) PAF - in nsr, assymptomatic, eliquis held d/t thrombocytopenia 3.) PEA - suspect d/t apnea from fentanyl and/or versed, trop elevated due to pea and esrd, trending down pci; patient is hospice, do not rec recurrent cath due to high risk d/t thrombocytopenia, pea from conscience sedation from fentanyl/versed and inability to access diagonal vessel d/t vessel tortuosity and 90 degreee angle off lad; rec palliative care consult, prn ntg 4.) Ok to dc from cv standpoint, f/u with me hellen; rec hospice, patient undecided 6.) thrombocytopenia - improved, = 129k today 6.) Stridor - possibly related to narcotics, known allergy to dilaudid, mso4, pea/apnea with fentanyl, had stridor with percocet, rec dc percocet 7.) Anemia - hgb improved 8.) Ambulate, scd's, pt consult d/w nurse 9) Hypoxia - improving, on room air. rec more fluid removal w dialysus, d/w Dr Roe 10.) DVT - on eliquis, 11.) Rec hospice, d/w patient, Dr Roe and nurse Problem Qualifiers (1) Hypertension: Qualified Code: I10 - Essential hypertension (2) CAD (coronary artery disease): Qualified Code: I25.10 - Coronary artery disease due to calcified coronary lesion (3) Chest pain: Qualified Code: R07.2 - Precordial pain Zohaib Valentin MD May 31, 2016 13:27
[2016-05-31] MEDS: amLODIPine BESYLATE 5 MG TAB PO SCH (13:35)
[2016-05-31] MEDS: ASPIRIN EC 81 MG TABEC PO SCH (13:36)
[2016-05-31] MEDS: MEGESTROL ACETATE SUSP 400 MG/10 ML CUP PO SCH (13:36)
[2016-05-31] MEDS: DOCUSATE SODIUM 100 MG CAP PO SCH ×2 (13:37→20:53)
[2016-05-31] MEDS: CLOPIDOGREL 75 MG TAB PO SCH (13:37)
[2016-05-31] MEDS: CARVEDILOL 12.5 MG TAB PO SCH ×2 (13:38→20:53)
[2016-05-31] MEDS: busPIRone HCL 5 MG TAB PO SCH (13:38)
[2016-05-31] MEDS: APIXABAN 2.5 MG TABLET PO SCH ×2 (13:38→20:54)
[2016-05-31] MEDS: DEXAMETHASONE SOD PHOS 4 MG/ML VIAL IV SCH ×2 (13:40→20:54)
[2016-05-31] MEDS: SODIUM CHLORIDE 0.9% FLUSH 10 ML FLUSH SCH ×2 (13:41→20:55)
[2016-05-31] MEDS: PANTOPRAZOLE SODIUM 40 MG VIAL IV PUSH SCH (17:45)
[2016-06-01] VITALS: BP 126/64; PULSE 82; RESP 18; TEMP 97.6; O2SAT 96
[2016-06-01] MEDS: diphenhydrAMINE HCL 50 MG/ML VIAL IV PUSH SCH ×3 (02:00→12:37)
[2016-06-01] MEDS: metroNIDAZOLE 500 MG INJ 100 ML IV SCH ×2 (02:00→10:07)
[2016-06-01 03:01] VITALS: PULSE 81
[2016-06-01 04:00] VITALS: BP 156/81; PULSE 80; RESP 18; TEMP 98.5; O2SAT 97
[2016-06-01] MEDS: INSULIN ASPART SUPPLEMENTAL SCALE SQ SCH ×3 (06:00→12:36)
[2016-06-01] MEDS: CEFEPIME INJ 1,000 MG in SODIUM CHLORIDE 0.9% INJ 100 ML IV SCH (06:04)
[2016-06-01] MEDS: NITROGLYCERIN 2% OINT 1 GM PACKET TOPICAL SCH ×2 (06:04→10:00)
[2016-06-01 08:00] VITALS: BP 155/72; PULSE 76; PULSE 77; RESP 20; TEMP 98.4; O2SAT 96
[2016-06-01] MEDS: APIXABAN 2.5 MG TABLET PO SCH (08:14)
[2016-06-01] MEDS: busPIRone HCL 5 MG TAB PO SCH (08:14)
[2016-06-01] MEDS: CARVEDILOL 12.5 MG TAB PO SCH (08:14)
[2016-06-01] MEDS: CLOPIDOGREL 75 MG TAB PO SCH (08:14)
[2016-06-01] MEDS: DOCUSATE SODIUM 100 MG CAP PO SCH (08:14)
[2016-06-01] MEDS: SEVELAMER CARBONATE 800 MG TAB PO SCH ×2 (08:14→12:33)
[2016-06-01] MEDS: amLODIPine BESYLATE 5 MG TAB PO SCH (08:14)
[2016-06-01] MEDS: ASPIRIN EC 81 MG TABEC PO SCH (08:15)
[2016-06-01] MEDS: MEGESTROL ACETATE SUSP 400 MG/10 ML CUP PO SCH (08:16)
[2016-06-01] MEDS: DEXAMETHASONE SOD PHOS 4 MG/ML VIAL IV SCH (08:18)
[2016-06-01] MEDS: SODIUM CHLORIDE 0.9% FLUSH 10 ML FLUSH SCH (08:20)
[2016-06-01] MEDS: MUPIROCIN 2% OINT 1 APPLIC/GM SYR EACH NARE SCH (09:00)
--- NOTE | 2016-06-01 11:27 | PD.CARD.PN ---
Subjective Subjective Remarks alert in nad, denies chest pain Objective Vital Signs / I&O Vital Signs Date Time Temp Pulse Resp B/P Pulse Ox O2 Delivery O2 Flow Rate FiO2 06/01/16 08:29 Room Air 06/01/16 08:00 98.4 76 20 155/72 96 06/01/16 08:00 77 06/01/16 07:15 Room Air 06/01/16 04:00 98.5 80 18 156/81 97 06/01/16 03:01 81 06/01/16 00:00 97.6 82 18 126/64 96 05/31/16 21:06 Room Air 05/31/16 20:00 98.8 78 18 120/60 95 05/31/16 16:00 Room Air 05/31/16 15:38 Room Air 2.00 21 05/31/16 14:03 98.5 73 19 146/67 96 I/O 05/31/16 05/31/16 05/31/16 06/01/16 06/01/16 06/01/16 07:00 15:00 23:00 07:00 15:00 23:00 Intake Total 666 ml 0 ml 340 ml 480 ml Output Total 1 ml 3000 ml Balance 665 ml -3000 ml 340 ml 480 ml Intake Oral 560 ml 340 ml 480 ml IV Total 106 ml 0 ml Stool Total 1 ml Hemodialysis 3000 ml # Voids 0 # Bowel Movements 1 Physical Exam GENERAL: SKIN: Warm and dry. HEAD: Normocephalic. EYES: No scleral icterus. No injection or drainage. NECK: Supple, trachea midline. No JVD or lymphadenopathy. CARDIOVASCULAR: Regular rate and rhythm without murmurs, gallops, or rubs. RESPIRATORY: Breath sounds equal bilaterally. No accessory muscle use. GASTROINTESTINAL: Abdomen soft, non-tender, nondistended. MUSCULOSKELETAL: No cyanosis, or edema. BACK: Nontender without obvious deformity. No CVA tenderness. Assessment and Plan Problem List: (1) Atrial fibrillation, new onset (2) Aortic stenosis (3) Hypertension (4) Hyperlipidemia (5) Depression (6) CAD (coronary artery disease) (7) Chest pain (8) Cardiomyopathy Assessment and Plan 1.) CAD - no chest pain x 9 days, s/p pci bms mid lad, small diagonal vessel jailed but patent, continue dapt as plt>50; chest pain resolved, elevated troponin due to jailed 90% ostial small dx vessel and esrd, do not think this is a life threatening stenosis or that requires admission, o/w patient is completely revascularized 2.) PAF - in nsr, assymptomatic, eliquis held d/t thrombocytopenia 3.) PEA - suspect d/t apnea from fentanyl and/or versed, trop elevated due to pea and esrd, trending down pci; patient is hospice, do not rec recurrent cath due to high risk d/t thrombocytopenia, pea from conscience sedation from fentanyl/versed and inability to access diagonal vessel d/t vessel tortuosity and 90 degreee angle off lad; rec palliative care consult, prn ntg 4.) Ok to dc from cv standpoint, f/u with me hellen; rec hospice, patient undecided 6.) thrombocytopenia - improved, = 129k today 6.) Stridor - possibly related to narcotics, known allergy to dilaudid, mso4, pea/apnea with fentanyl, had stridor with percocet, rec dc percocet 7.) Anemia - hgb improved 8.) Ambulate, scd's, pt consult d/w nurse 9) Hypoxia - improving, on room air. rec more fluid removal w dialysus, d/w Dr Roe 10.) DVT - on eliquis, 11.) Rec hospice, d/w patient, Dr Roe and nurse Problem Qualifiers (1) Hypertension: Qualified Code: I10 - Essential hypertension (2) CAD (coronary artery disease): Qualified Code: I25.10 - Coronary artery disease due to calcified coronary lesion (3) Chest pain: Qualified Code: R07.2 - Precordial pain Zohaib Valentin MD Jun 01, 2016 11:27
[2016-06-01 12:00] VITALS: BP 125/61; PULSE 72; RESP 20; TEMP 98.4; O2SAT 95
[2016-06-01] MEDS: ACETAMINOPHEN 325 MG TAB PO PRN (12:35)
[2016-06-01] MEDS ORDERED: ALPR.25 PO (13:16)
--- NOTE | 2016-06-01 13:18 | HHI.DCPOC ---
Discharge Care Plan Diagnosis: (1) Metabolic bone disease (2) Pulmonary edema (3) Atrial fibrillation (4) ESRD (end stage renal disease) (5) Aortic stenosis (6) CAD (coronary artery disease) (7) NSTEMI (non-ST elevated myocardial infarction) Goals to Promote Your Health * To prevent worsening of your condition and complications * To maintain your health at the optimal level Directions to Meet Your Goals Take your medications as prescribed Follow your dietary instruction Follow activity as directed Keep your appointments as scheduled Take your immunizations and boosters as scheduled If your symptoms worsen call your PCP, if no PCP go to Urgent Care Center or Emergency Room Smoking is Dangerous to Your Health. Avoid second hand smoke Call the 24-hour hour crisis hotline for domestic abuse at Eddi Marx MD Jun 01, 2016 13:17
--- NOTE | 2016-06-01 13:21 | HHI.DS ---
Discharge Summary Admission Date May 10, 2016 at 11:41 Discharge Date: Jun 01, 2016 Admitting Diagnosis chest pain, anemia,CAD,hospice (1) Unstable angina Diagnosis: Principal (2) Paroxysmal atrial fibrillation Diagnosis: Principal (3) Mediastinal widening Diagnosis: Principal (4) COPD (chronic obstructive pulmonary disease) Diagnosis: Principal (5) ESRD (end stage renal disease) (6) Severe anemia Diagnosis: Principal (7) Hypertension Diagnosis: Principal (8) Hyponatremia (9) Hyperkalemia Diagnosis: Principal (10) Change in mental status Diagnosis: Principal (11) Hypotension Diagnosis: Principal (12) Respiratory distress Diagnosis: Principal (13) Thrombocytopenia (14) Depression (emotion) Diagnosis: Principal (15) PEA (Pulseless electrical activity) Diagnosis: Principal (16) Benign thyroid cyst Diagnosis: Principal CBC/BMP: 05/31/16 0730 05/31/16 0730 Significant Findings Laboratory Tests Test 05/30/16 05/31/16 04:28 07:30 White Blood Count 12.3 TH/MM3 17.1 TH/MM3 (4.0-11.0) (4.0-11.0) Red Blood Count 3.08 MIL/MM3 3.40 MIL/MM3 (4.00-5.30) (4.00-5.30) Hemoglobin 9.5 GM/DL 10.3 GM/DL (11.6-15.3) (11.6-15.3) Hematocrit 28.4 % 30.6 % (35.0-46.0) (35.0-46.0) Red Cell Distribution Width 18.1 % 18.5 % (11.6-17.2) (11.6-17.2) Chloride Level 97 MEQ/L 94 MEQ/L (98-107) (98-107) Blood Urea Nitrogen 56 MG/DL (7-18) 75 MG/DL (7-18) Creatinine 4.41 MG/DL 5.45 MG/DL (0.50-1.00) (0.50-1.00) Estimat Glomerular Filtration 11 ML/MIN (>89) 9 ML/MIN (>89) Rate Random Glucose 130 MG/DL 112 MG/DL (74-106) (74-106) Neutrophils (%) (Auto) 88.4 % (16.0-70.0) Lymphocytes (%) (Auto) 3.0 % (9.0-44.0) Monocytes (%) (Auto) 8.3 % (0.0-8.0) Neutrophils # (Auto) 15.1 TH/MM3 (1.8-7.7) Lymphocytes # (Auto) 0.5 TH/MM3 (1.0-4.8) Monocytes # (Auto) 1.4 TH/MM3 (0-0.9) Sodium Level 134 MEQ/L (136-145) Potassium Level 5.2 MEQ/L (3.5-5.1) Calcium Level 8.4 MG/DL (8.5-10.1) Aspartate Amino Transf 7 U/L (15-37) (AST/SGOT) Alanine Aminotransferase 8 U/L (10-53) (ALT/SGPT) Total Protein 5.5 GM/DL (6.4-8.2) Albumin 2.6 GM/DL (3.4-5.0) PE at Discharge GENERAL: SKIN: Warm and dry. HEAD: Atraumatic. Normocephalic. EYES: Pupils equal and round. No scleral icterus. No injection or drainage. ENT: No nasal bleeding or discharge. Mucous membranes pink and moist. NECK: Trachea midline. No JVD. CARDIOVASCULAR: Regular rate and rhythm. RESPIRATORY: No accessory muscle use. Clear to auscultation. Breath sounds equal bilaterally. GASTROINTESTINAL: Abdomen soft, non-tender, nondistended. Hepatic and splenic margins not palpable. MUSCULOSKELETAL: Extremities without clubbing, cyanosis, or edema. No obvious deformities. NEUROLOGICAL: Awake and alert. No obvious cranial nerve deficits. Motor grossly within normal limits. 1 out of 5 muscle strength in the arms and legs. Normal speech. PSYCHIATRIC: Appropriate mood and affect; insight and judgment normal. Transfer Summary Is an 85-year-old female. She was transferred late Reggie night 05/[address] neck revealed possible mass at tongue base. Evaluated by Dr. Martinez pleases a simple thyroid cyst that she treated/watchfully with antibiotics and steroids versus biopsy/drainage. Risk might outweigh benefits however this point. Patient is currently on aspirin, Plavix and Ellik S4 underlying cardiac disease/BMS and left femoral DVT Hospital Course 85 Y AAF, ADMIT WITH - Metabolic encephalopathy Depression Chronic benzodiazepine use Glaucoma On latanoprost 0.004% 1 drop each eye at night when necessary Holding Vilbyrd 40 mg by mouth daily for depression Holding Xanax 0.25 mg by mouth 3 times a day as needed for anxiety Currently on BuSpar 5 mill grams by mouth daily for depression Limit sedatives especially narcotics RESP: Upper airway obstruction/stridor LLL pneumonia/right lower lobe pneumonia History of FAYE - currently not on CPAP Ulnar edema CT of the neck revealed a mass at the base of left tongue 2.5 x 2.4 cm with deviation of trachea to the right. Vocal cords swollen. Some narrowing the trachea. Evaluated by Dr. Martinez/ENT. CT neck revealed a 4 x 3 cm appears cystic lesion near to but not coming from left thyroid. Dr. Martinez recommends observation with weaning of steroids and completed 1 week of antibiotic therapy. Fall palpation. Nasal cannula/simple mask to maintain saturations greater than equal to 92% BiPAP PRN. Broncho dilator therapy every 6 hours scheduled Scheduled Decadron 6 mg IV q12, Racemic epinephrine PRN. Broad-spectrum antibiotics as below with cefepime and Flagyl Patient is alternate CODE/intubation only CV: s/p PEA Arrest NSTEMI s/p PCI with BMS to LAD Systolic heart failure Coronary artery disease Left PEEP/superficial femoral vein thrombus, right superficial vein thrombus Echo 05/16 revealed EF 40-45%. Global hyperkinesis. Left atrium dilated. Mild TR. Heart catheterization 05/[address] Valentin - Kem LAD culprit vessel, 60% RCA and 50-60% OM bare metal stent to LAD. Recommended DAP 12-15 months the patient's anemia tolerates Continue aspirin and Plavix On schedule Nitropaste 2 inches every 6 And currently on Norvasc 5 mill grams daily, Coreg 12.5 mg twice a day for hypertension./Home medications Cardiology Dr. Valentin Chest x-ray revealed a right less than left infiltrate/edema. Source of dyspnea likely secondary to massive base of left tongue with trachea deviation Left deep/spatial vein thrombus, right superficial vein thrombus - Currently on DAP. Eliquis 2.5 twice a day GI: clears/renal diet if passed swallow evaluation today. With mechanical fall/ thickened liquids Protonix for GI prophylaxis RENAL: ESRD on hemodialysis History of nephrolithiasis Nephrology Dr. Miramontes. Scheduled on dialysis Sunday/Sunday and Sunday ID: LLL healthcare associated pneumonia Right lower lobe pneumonia Left tongue base mass iv ABX. Pertinent cultures 05/26 - blood cultures 2 -no growth 05/26 - urine - no growth HEME: Anemia of chronic kidney disease Leukocytosis Leukocytosis likely secondary Decadron/infectious? -Previous acute thrombocytopenia has resolved, most likely secondary to Aggrastat ENDO: Secondary hyperparathyroidism Currently off Sensipar 30 mg by mouth daily FEN: Hyperphosphatemia Hyperkalemia Currently on Renvela 800 milligrams 3 times a day for hyperphosphatemia A.m. laboratories pending PROPH: -Bilateral lower extremity SCDs/Eliquis. IV Protonix LINES: Utilize peripheral IVs, central line if needed Critical Care: The total critical care time was 25 minutes. Healthcare proxy is Maureen Sorensen [phone] goal is return to [facility] with hospice. Previously on [facility] revoked prior to admission PLAN [facility]. NO ABX NEEDED. GAVE XANAX RX. Pt Condition on Discharge: Stable Discharge Disposition: [facility] Discharge Instructions DIET: Follow Instructions for: As Tolerated, No Restrictions Speech Therapy-Diet Recommenda: Soft Activities you can perform: See Additionl Instruction Additional Activity Instructio: Out of bed with assistance Follow up Referrals: PCP Follow-up - 2 Weeks New Medications: Megestrol Liq (Megestrol Liq) 40 Mg/Ml Susp 800 MG PO DAILY Appetitie #30 BOTTLE Continued Medications: Alprazolam (Xanax) 0.25 Mg Tab 0.25 MG PO Q8H PRN ANXIETY #30 Ref 0 TAB NS (This prescription has been renewed) Apixaban (Eliquis) 2.5 Mg Tab 2.5 MG PO BID Blood Clot Prevention Ref 0 TAB Aspirin (Aspirin) 81 Mg Tabdr 81 MG PO DAILY Blood Clot Prevention TAB B-Complex W/ C & Folic Acid (Nephro-Anne) 1 Tab 1 TAB PO DAILY Nutritional Supplement #30 Ref 0 TAB Carvedilol (Carvedilol) 12.5 Mg Tab 12.5 MG PO Q12HR #60 Ref 0 TAB Clopidogrel (Plavix) 75 Mg Tab 75 MG PO DAILY Blood Clot Prevention #30 TAB Docusate Sodium (Docusate Sodium) 100 Mg Cap 100 MG PO BID Prevent Constipation #60 Ref 0 CAP Multiple Vitamins W/ Minerals (Thera-M) 1 Tab 1 TAB PO DAILY Nutritional Supplement Ref 0 TAB Sevelamer Carbonate (Renvela) 800 Mg Tab 800 MG PO TID Control phosphorous levels #90 Ref 0 TAB Travoprost Opth Drops (Travatan Z Opth Drops) 0.004 % Soln 1 DROP EACH EYE HS PRN Glaucoma #1 Ref 0 BOTTLE Discontinued Medications: Acetaminophen (Tylenol) 325 Mg Cap 650 MG PO Q4HR PRN PAIN Ref 0 CAP Cinacalcet (Sensipar) 30 Mg Tab 30 MG PO DAILY #30 Ref 0 TAB Furosemide (Furosemide) 40 Mg Tab 40 MG PO BID PRN SHORTNESS OF BREATH #60 Ref 0 TAB Megestrol Liq (Megestrol Liq) 40 Mg/Ml Susp 800 MG PO DAILY POOR APPETITE #60 Ref 1 CONTAINER Vilazodone (Viibryd) 40 Mg Tab 40 MG PO DAILY Control Depression #30 Ref 0 TAB Eddi Marx MD Jun 01, 2016 13:21
--- NOTE | 2016-06-01 13:41 | HHI.NPPN ---
Subjective General Problems: Anemia Renal Failure: Chronic, End Stage Renal Disease Interval History She is lying in bed eating. Lungs clear. Wants to go, may be discharged later today. (Lelo Chong) Review of Systems General Constitutional: Fatigue (Lelo Chong) Ears, Nose, & Throat Ears, Nose & Throat: Sore Throat, Hoarse (Lelo Chong) Cardiovascular Cardiac: Chest Pain (Lelo Chong) Objective Data Data 05/31/16 06/01/16 19:00 07:00 Intake Total 0 ml 820 ml Output Total 3000 ml Balance -3000 ml 820 ml Intake Oral 820 ml IV Total 0 ml Hemodialysis 3000 ml Vital Signs Date Time Temp Pulse Resp B/P Pulse Ox O2 Delivery O2 Flow Rate FiO2 06/01/16 12:00 98.4 72 20 125/61 95 06/01/16 12:00 Room Air 2.00 21 06/01/16 08:29 Room Air 06/01/16 08:00 98.4 76 20 155/72 96 06/01/16 08:00 77 06/01/16 07:15 Room Air 06/01/16 04:00 98.5 80 18 156/81 97 06/01/16 03:01 81 06/01/16 00:00 97.6 82 18 126/64 96 05/31/16 21:06 Room Air 05/31/16 20:00 98.8 78 18 120/60 95 05/31/16 16:00 Room Air 05/31/16 15:38 Room Air 2.00 21 05/31/16 14:03 98.5 73 19 146/67 96 (Lelo Chong) -: 05/31/16 0730 05/31/16 0730 Physical Exam General Appearance: No Acute Distress, Comfortable, Anxious, Malnourished (Lelo Chong) Eyes Eye Exam: Pupils Equal (Lelo Chong) Throat Throat Exam: Oral Mucosa [place] & Moist (Lelo Chong) Neck Neck Exam: Neck Supple (Lelo Chong) Pulmonary Resp Exam: Breath Sounds Equal, No Distress, Diminished Breath Sounds, Poor Inspiratory Effort (Lelo Chong) Cardiology CV Exam: Regular, Normal Sinus Rhythm, Good Perfusion, Dyspnea on Exertion ( Lelo Chong) Gastrointestinal/Abdomen GI Exam: Soft, Non-Tender, Bowel Sounds Present (Lelo Chong) Musculoskeletal MS Exam: Joints Intact, Normal Tone (Lelo Chong) Integumentary Skin Exam: Clear, Warm, Dry, Intact (Lelo Chong) Extremeties Extremities Exam: No Edema, Pedal Pulses Palpable Extremeties Remarks right AVF (Lelo Chong) Neurologic Neuro Exam: Alert, Awake, Oriented, Speech Clear, Moving All Extremities ( Lelo Chong) Psychiatric Psych Exam: Appropriate Responses (Lelo Chong) Assessment/Plan Discussed Condition With: Patient Assessment Summary: Anemia of CKD, CHF, Hypertension, End Stage Renal Disease Problem List: (1) ESRD (end stage renal disease) Plan: HD to be continued MWF. 3L UF yesterday has functioning fistula for dialysis oliguric at baseline no acute renal concerns, we are okay with discharge when cleared by all physicians to resume outpatient HD arrangement or transition to hospice (2) Stridor Plan: ENT following continue steroid taper, antibiotics clinically improving, continue to monitor (3) CAD (coronary artery disease) Plan: adjust UF with dialysis as tolerated/required cardiology following sp cath with stent to LAD, EF 45% no further PCI per Dr. Vlaentin (4) Anemia Plan: Hemoglobin has improved. Continue Epogen. (5) Atrial fibrillation Plan: Rate controlled cardiology following on Eliquis (6) Thrombocytopenia Plan: corrected, due to Aggrastat antiplatelets have been resumed (Lelo Chong) Plan patient was seen and examined. Weak appearing, sleepy. To be discharged today. (Roland Miramontes MD) Problem Qualifiers (1) CAD (coronary artery disease): Qualified Code: I25.10 - Coronary artery disease due to calcified coronary lesion (2) Anemia: Lelo Chong Jun 01, 2016 13:41 Roland Miramontes MD Jun 02, 2016 13:26
[2016-06-01] MEDS ORDERED: NITR2OIN CHEST (14:17)
[2016-06-01 16:00] VITALS: BP 113/63; PULSE 69; RESP 20; TEMP 98.7; O2SAT 95
[2016-06-08] MEDS ORDERED: ULTR50TA5 PO (18:36)
[2016-06-08] MEDS ORDERED: ALPR.25 PO ×2 (18:36)
[2016-06-08] MEDS ORDERED: CEPH-460 PO (22:57)
== END 2016-06-01 16:19 | DRG 248 ==
LOC: NEPA 14:30 → INTOOBSV 16:53 → NEDA 16:53 → HOCB 19:00 → OBSVTOIN 05-10 11:41 → HCIS 05-13 12:50 → HCVR 05-16 15:35 → HIMN 05-17 13:00 → HOCB 05-22 18:08 → HIME 05-26 18:15 → N04A 05-30 14:12
PROVIDERS: ADMIT Family Medicine; ATTEND Family Medicine
PROC: 5A1D60Z (ICD-10-PCS; 2016-05-10)
PROC: 30233N1 Transfusion of Nonautologous Red Blood Cells into Peripheral Vein, Percutaneous Approach (ICD-10-PCS; 2016-05-10)
PROC: 5A1935Z Respiratory Ventilation, Less than 24 Consecutive Hours (ICD-10-PCS; 2016-05-16)
PROC: 4A023N7 Measurement of Cardiac Sampling and Pressure, Left Heart, Percutaneous Approach (ICD-10-PCS; 2016-05-16)
PROC: B2111ZZ Fluoroscopy of Multiple Coronary Arteries using Low Osmolar Contrast (ICD-10-PCS; 2016-05-16)
PROC: B2151ZZ Fluoroscopy of Left Heart using Low Osmolar Contrast (ICD-10-PCS; 2016-05-16)
PROC: 4A033BC Measurement of Arterial Pressure, Coronary, Percutaneous Approach (ICD-10-PCS; 2016-05-16)
PROC: 0BH17EZ Insertion of Endotracheal Airway into Trachea, Via Natural or Artificial Opening (ICD-10-PCS; 2016-05-16)
PROC: 02703DZ Dilation of Coronary Artery, One Artery with Intraluminal Device, Percutaneous Approach (ICD-10-PCS; principal; 2016-05-16 13:30)
PROC: 6A550Z2 Pheresis of Platelets, Single (ICD-10-PCS; 2016-05-17)
DX: I21.4 Non-ST elevation (NSTEMI) myocardial infarction (principal); N18.6 End stage renal disease; I13.2 Hypertensive heart and chronic kidney disease with heart failure and with stage 5 chronic kidney disease, or end stage renal disease; J18.9 Pneumonia, unspecified organism; G93.41 Metabolic encephalopathy; I82.411 Acute embolism and thrombosis of right femoral vein; I42.9 Cardiomyopathy, unspecified; F03.90 Unspecified dementia, unspecified severity, without behavioral disturbance, psychotic disturbance, mood disturbance, and anxiety; I50.30 Unspecified diastolic (congestive) heart failure; I46.9 Cardiac arrest, cause unspecified; E87.1 Hypo-osmolality and hyponatremia; E11.22 Type 2 diabetes mellitus with diabetic chronic kidney disease; E11.65 Type 2 diabetes mellitus with hyperglycemia; D69.59 Other secondary thrombocytopenia; I25.110 Atherosclerotic heart disease of native coronary artery with unstable angina pectoris; E87.5 Hyperkalemia; J44.9 Chronic obstructive pulmonary disease, unspecified; K21.9 Gastro-esophageal reflux disease without esophagitis; M19.90 Unspecified osteoarthritis, unspecified site; Z95.5 Presence of coronary angioplasty implant and graft; Z99.2 Dependence on renal dialysis; G47.33 Obstructive sleep apnea (adult) (pediatric); Z87.442 Personal history of urinary calculi; Z96.643 Presence of artificial hip joint, bilateral; Z96.653 Presence of artificial knee joint, bilateral; Z86.14 Personal history of Methicillin resistant Staphylococcus aureus infection; I25.84 Coronary atherosclerosis due to calcified coronary lesion; D63.1 Anemia in chronic kidney disease; I48.0 Paroxysmal atrial fibrillation; E04.1 Nontoxic single thyroid nodule; Z79.01 Long term (current) use of anticoagulants; I73.9 Peripheral vascular disease, unspecified; G43.909 Migraine, unspecified, not intractable, without status migrainosus; D72.823 Leukemoid reaction; I08.1 Rheumatic disorders of both mitral and tricuspid valves; Z51.5 Encounter for palliative care; Z87.891 Personal history of nicotine dependence; F06.4 Anxiety disorder due to known physiological condition; F43.21 Adjustment disorder with depressed mood; Z66 Do not resuscitate; R06.1 Stridor; J39.2 Other diseases of pharynx; E78.5 Hyperlipidemia, unspecified; M62.50 Muscle wasting and atrophy, not elsewhere classified, unspecified site; Y95 Nosocomial condition; I95.3 Hypotension of hemodialysis; E83.39 Other disorders of phosphorus metabolism; T45.8X5A Adverse effect of other primarily systemic and hematological agents, initial encounter; Y92.239 Unspecified place in hospital as the place of occurrence of the external cause; T42.75XA Adverse effect of unspecified antiepileptic and sedative-hypnotic drugs, initial encounter; H40.9 Unspecified glaucoma
CPT/HCPCS: 31500; 36430; 36591; 36600; 70450; 70490; 70491; 71010; 71275; 74174; 76937; 80048; 80053; 80069; 82272; 82550; 82552; 82728; 82805; 82948; 83010; 83540; 83550; 83615; 83735; 83880; 84100; 84132; 84484; 85002; 85007; 85014; 85018; 85025; 85027; 85610; 85730; 86022; 86850; 86900; 86901; 86920; 87040; 87086; 87641; 90935; 92928; 93005; 93306; 93308; 93454; 93571; 93572; 93970; 94002; 94003; 94640; 94664; 95819; 96374; 96375; C1725; C1769; C1876; C1887; C1893; C9113; J0131; J0153; J0171; J0461; J0610; J0692; J1100; J1200; J1265; J1644; J1815; J2060; J2250; J2930; J3010; J3246; J3370; J7030; J7050; J7613; P9016; P9035; P9047; Q4081; Q9967